=== PATIENT | male | born 1945 | race Caucasian/White ===

== ENCOUNTER → 2018-11-14 09:08 | Outpatient (CLI) | payer MEDICARE, SELFPAY ==
[2018-11-14 09:44] LABS: PSA,Total- Diagnostic 0.02 ng/mL (0.0-4.0)
== END ==
DX: C61 Malignant neoplasm of prostate (principal)
CPT/HCPCS: 84153

== ENCOUNTER 2020-11-05 14:07 | Outpatient (RCR) | payer MEDICARE, SELFPAY ==
[2020-11-05] MEDS: COVID-19 VACC, MRNA(PFIZER)/PF 30 MCG/0.3 ML SYRINGE IM (16:52)
[2020-11-26] MEDS: COVID-19 VACC, MRNA(PFIZER)/PF 30 MCG/0.3 ML SYRINGE IM (16:36)
== END 2021-02-02 23:59 ==
LOC: IMMUN 14:07
PROVIDERS: PCP Family Medicine; Referring Provider Family Medicine; Visit Provider Family Medicine
DX: Z23 Encounter for immunization (principal)
CPT/HCPCS: 0001A; 0002A; 91300

== ENCOUNTER 2022-08-25 09:19 | Inpatient (IN) | payer MEDICARE, SELFPAY ==
[2022-08-25] VITALS (14 sets, daily range): BP systolic 94–162; BP diastolic 50–129; PULSE 77–118; RESP 14–24; TEMP 21–37.7; O2SAT 87–98; BMI 19.7; BMI 18.6
--- NOTE | 2022-08-25 09:27 | EKG12_ITS ---
Test Reason : sob Blood Pressure : / mmHG Vent. Rate : 092 BPM Atrial Rate : 092 BPM P-R Int : 152 ms QRS Dur : 080 ms QT Int : 352 ms P-R-T Axes : 074 079 071 degrees QTc Int : 435 ms Normal sinus rhythm Normal ECG Confirmed by RISHI NAQVI, DULCE MARIA ([id number]), metropolitan editor LENY SIMS ([id number]) on 08/30/2022 12:29:26 PM Referred By: Luz Confirmed By:DULCE MARIA BLACKWELL MD
--- NOTE | 2022-08-25 09:29 | EDS_ITS ---
HPI History of Present Illness Chief Complaint: Shortness of Breath Informant: patient and EMS Narrative Narrative: Patient is a 77-year-old male with history of hyperlipidemia and long-term tobacco use (quit a couple days ago) presenting with worsening shortness of breath. Patient states he has had worsening shortness of breath for the past week or so. He states is got to the point that he can even move his arm without getting short of breath now. He has had a cough that is productive of white and yellow sputum. Denies any chest discomfort or pain. Denies any fever. Denies any swelling of his legs. Denies a history of DVT or PE. Does take a daily 81 mg aspirin. States he is never felt like this before. Does not wear any home oxygen. Apparently his is at home with pneumonia currently and had a negative COVID test. While patient denies any history of any underlying lung disease including COPD chart view shows he does have a history of COPD. Per EMS report patient was 82% on room air upon arrival. He did improve after receiving a DuoNeb. [facility] Medical History (Updated 08/25/22 @ 17:[address] Anjali Escobar, ) COPD (chronic obstructive pulmonary disease) Glaucoma High cholesterol Prostate CA Home Medications artificial tears(hypromellose) 0.3 % eye drops 1 drp EACH EYE BID DRY EYE 08/25/22 [History Last Taken 08/23/22] aspirin 81 mg tablet,delayed release 81 mg PO DAILY HEART HEALTH 08/25/22 [History Last Taken 08/23/22] lovastatin 40 mg tablet 40 mg PO DAILY CHOLESTEROL 08/25/22 [History Last Taken 08/23/22] timolol maleate 0.5 % eye drops 1 drp EACH EYE BID GLUCOMA 08/25/22 [History Last Taken 08/23/22] vit C 250 mg-vit E 90 mg-zinc 40 mg-copper 1 [id number] capsule (PreserVision AREDS-2) 1 tab PO BID SUPPLEMENT 08/25/22 [History Last Taken 08/23/22] Allergy/AdvReac Type Severity Reaction Status Date / Time No Known Allergies Allergy Verified 08/25/22 09:27 Family History (Updated 08/25/22 @ 13:[address] Alex Boles MD) Other COPD (chronic obstructive pulmonary disease) Heart disease Hypertension Surgical History (Updated 08/25/22 @ 13:51 by Adriane Smith) H/O radical prostatectomy Social History Smoking Status: Current some day smoker tobacco type: cigarettes ROS ROS ED Constitutional Constitutional ED: Denies chills or fever(s) Eyes Eyes: Denies change in vision ENT ENT ED: Denies rhinorrhea or sore throat Cardiovascular Cardiovascular: Denies chest pain or palpitations Respiratory/Chest Respiratory/Chest: Reports cough, dyspnea and dyspnea on exertion Gastrointestinal Gastrointestinal: Denies abdominal pain, nausea or vomiting Genitourinary Genitourinary ED: Denies dysuria Musculoskeletal Musculoskeletal: Denies arthralgias or myalgias Integumentary Denies rash Neurologic Neurologic: Reports weakness; Denies headache(s) Hematologic/Lymphatic Hematologic/Lymphatic: Denies easy bleeding or easy bruising EXAM Physical Exam Const Vital Signs: 08/25/22 09:20 08/25/22 09:27 08/25/22 09:27 Temperature 98 F Temperature Source Temporal Pulse Rate 117 H Pulse Rate [1 (Initial Baseline)] Pulse Rate [2] Pulse Rate [3] Pulse Rate [4] Pulse Rate [5] Pulse Rate [6] Pulse Rate [7] Pulse Rate [8] Pulse Rate [9] Respiratory Rate 22 H Respiratory Rate [1 (Initial Baseline)] Respiratory Rate [2] Respiratory Rate [3] Respiratory Rate [4] Respiratory Rate [5] Respiratory Rate [6] Respiratory Rate [7] Respiratory Rate [8] Respiratory Rate [9] Respiratory Effort Short of Breath Respiratory Pattern Tachypnea Blood Pressure 147/129 H Blood Pressure [1 (Initial Baseline)] Blood Pressure [2] Blood Pressure [3] Blood Pressure [4] Blood Pressure [5] Blood Pressure [6] Blood Pressure [7] Blood Pressure [8] Blood Pressure [9] Blood Pressure Mean 135 Pulse Ox 87 94 Oxygen Delivery Method Room Air Nasal Cannula Oxygen Delivery Method [1 (Initial Baseline)] Oxygen Delivery Method [3] Oxygen Delivery Method [4] Oxygen Delivery Method [5] Oxygen Delivery Method [6] Oxygen Delivery Method [7] Oxygen Delivery Method [9] Oxygen Flow Rate (L/min) 44 Oxygen Flow Rate (L/min) [1 (Initial Baseline)] Oxygen Flow Rate (L/min) [2] Oxygen Flow Rate (L/min) [3] Oxygen Flow Rate (L/min) [4] Oxygen Flow Rate (L/min) [5] Oxygen Flow Rate (L/min) [6] Oxygen Flow Rate (L/min) [7] Oxygen Flow Rate (L/min) [8] Oxygen Flow Rate (L/min) [9] 08/25/22 09:27 08/25/22 09:55 08/25/22 10:27 Temperature 97.9 F 97.6 F L Temperature Source Temporal Temporal Pulse Rate 103 H 102 H 88 Pulse Rate [1 (Initial Baseline)] Pulse Rate [2] Pulse Rate [3] Pulse Rate [4] Pulse Rate [5] Pulse Rate [6] Pulse Rate [7] Pulse Rate [8] Pulse Rate [9] Respiratory Rate 24 H 22 H 20 H Respiratory Rate [1 (Initial Baseline)] Respiratory Rate [2] Respiratory Rate [3] Respiratory Rate [4] Respiratory Rate [5] Respiratory Rate [6] Respiratory Rate [7] Respiratory Rate [8] Respiratory Rate [9] Respiratory Effort Respiratory Pattern Blood Pressure 141/111 H 149/104 H Blood Pressure [1 (Initial Baseline)] Blood Pressure [2] Blood Pressure [3] Blood Pressure [4] Blood Pressure [5] Blood Pressure [6] Blood Pressure [7] Blood Pressure [8] Blood Pressure [9] Blood Pressure Mean 121 119 Pulse Ox 97 98 Oxygen Delivery Method Nasal Cannula Nasal Cannula Oxygen Delivery Method [1 (Initial Baseline)] Oxygen Delivery Method [3] Oxygen Delivery Method [4] Oxygen Delivery Method [5] Oxygen Delivery Method [6] Oxygen Delivery Method [7] Oxygen Delivery Method [9] Oxygen Flow Rate (L/min) 4 4 Oxygen Flow Rate (L/min) [1 (Initial Baseline)] Oxygen Flow Rate (L/min) [2] Oxygen Flow Rate (L/min) [3] Oxygen Flow Rate (L/min) [4] Oxygen Flow Rate (L/min) [5] Oxygen Flow Rate (L/min) [6] Oxygen Flow Rate (L/min) [7] Oxygen Flow Rate (L/min) [8] Oxygen Flow Rate (L/min) [9] 08/25/22 10:27 08/25/22 11:18 08/25/22 11:50 Temperature Temperature Source Pulse Rate 88 93 Pulse Rate [1 (Initial Baseline)] 100 Pulse Rate [2] 102 H Pulse Rate [3] 83 Pulse Rate [4] 87 Pulse Rate [5] 99 Pulse Rate [6] 94 Pulse Rate [7] 99 Pulse Rate [8] 95 Pulse Rate [9] 87 Respiratory Rate 20 H 18 Respiratory Rate [1 (Initial Baseline)] 22 H Respiratory Rate [2] 20 H Respiratory Rate [3] 16 Respiratory Rate [4] 16 Respiratory Rate [5] 14 Respiratory Rate [6] 18 Respiratory Rate [7] 18 Respiratory Rate [8] 16 Respiratory Rate [9] 16 Respiratory Effort Respiratory Pattern Blood Pressure 140/104 H 113/59 L Blood Pressure [1 (Initial Baseline)] 153/104 H Blood Pressure [2] 153/104 H Blood Pressure [3] 162/99 H Blood Pressure [4] 162/99 H Blood Pressure [5] 137/98 H Blood Pressure [6] 141/98 H Blood Pressure [7] 130/88 H Blood Pressure [8] 116/87 H Blood Pressure [9] 117/85 H Blood Pressure Mean 116 77 Pulse Ox 98 95 Oxygen Delivery Method Nasal Cannula Nasal Cannula Oxygen Delivery Method [1 (Initial Baseline)] Nasal Cannula Oxygen Delivery Method [3] Nasal Cannula Oxygen Delivery Method [4] Nasal Cannula Oxygen Delivery Method [5] Non-Rebreather Oxygen Delivery Method [6] Non-Rebreather Oxygen Delivery Method [7] Nasal Cannula Oxygen Delivery Method [9] Nasal Cannula Oxygen Flow Rate (L/min) 4 2 Oxygen Flow Rate (L/min) [1 (Initial Baseline)] 4 Oxygen Flow Rate (L/min) [2] 4 Oxygen Flow Rate (L/min) [3] 4 Oxygen Flow Rate (L/min) [4] 4 Oxygen Flow Rate (L/min) [5] 15 Oxygen Flow Rate (L/min) [6] 15 Oxygen Flow Rate (L/min) [7] 2 Oxygen Flow Rate (L/min) [8] 2 Oxygen Flow Rate (L/min) [9] 2 08/25/22 12:07 Temperature Temperature Source Pulse Rate 85 Pulse Rate [1 (Initial Baseline)] Pulse Rate [2] Pulse Rate [3] Pulse Rate [4] Pulse Rate [5] Pulse Rate [6] Pulse Rate [7] Pulse Rate [8] Pulse Rate [9] Respiratory Rate 18 Respiratory Rate [1 (Initial Baseline)] Respiratory Rate [2] Respiratory Rate [3] Respiratory Rate [4] Respiratory Rate [5] Respiratory Rate [6] Respiratory Rate [7] Respiratory Rate [8] Respiratory Rate [9] Respiratory Effort Respiratory Pattern Blood Pressure 113/79 Blood Pressure [1 (Initial Baseline)] Blood Pressure [2] Blood Pressure [3] Blood Pressure [4] Blood Pressure [5] Blood Pressure [6] Blood Pressure [7] Blood Pressure [8] Blood Pressure [9] Blood Pressure Mean 90 Pulse Ox 95 Oxygen Delivery Method Nasal Cannula Oxygen Delivery Method [1 (Initial Baseline)] Oxygen Delivery Method [3] Oxygen Delivery Method [4] Oxygen Delivery Method [5] Oxygen Delivery Method [6] Oxygen Delivery Method [7] Oxygen Delivery Method [9] Oxygen Flow Rate (L/min) 2 Oxygen Flow Rate (L/min) [1 (Initial Baseline)] Oxygen Flow Rate (L/min) [2] Oxygen Flow Rate (L/min) [3] Oxygen Flow Rate (L/min) [4] Oxygen Flow Rate (L/min) [5] Oxygen Flow Rate (L/min) [6] Oxygen Flow Rate (L/min) [7] Oxygen Flow Rate (L/min) [8] Oxygen Flow Rate (L/min) [9] Positive well developed and cachectic General Appearance ED: well developed, cachectic and NAD Nutritional Appearance: cachectic HEENT Reports moist mucous membranes atraumatic Eyes PERRL and EOMs intact bilaterally Neck supple Neck Narrative: Positive JVD Resp Resp Narrative: Tachypneic, diffuse inspiratory and x-ray wheezing. Diminished breath sounds on the left. No accessory muscle use Cardio regular rhythm and no murmurs Rate: tachycardic GI non-tender and non-distended Back/Spine no CVA tenderness Neuro oriented x3 Neuro Narrative: No focal deficits appreciated Motor Exam: general weakness Psych mental status grossly normal Skin no wounds Rashes: no rashes MDM MDM MDM Narrative Medical decision making narrative: Patient is evaluated for worsening shortness of breath. On arrival patient is tachypneic, tachycardic and hypoxic. He was given a DuoNeb in route. He is given a 500 cc bolus and addition albuterol treatment. Differential includes infection, pleural effusion, cardiogenic causes, pulmonary emboli as well as COPD exacerbation. Patient is wheezing. He is given albuterol as he previously improvement with DuoNeb. He has diminished breath sounds on the left. Chest x-ray does show 40% pneumothorax. Chest x-ray is interpreted by myself as well as radiology. Chest tube is placed. Patient has had decrease in his O2 demands but still requires submental oxygen. After additional chest tube is CTA of the chest is ordered to further evaluate the lungs. Patient has significant chronic changes, persistent pneumothorax but no signs of a secondary pneumonia or an acute infection. Case is discussed with Dr. Mcmahon, surgery on-call. Chest tube will be switched out per his recommendation after reviewing the CAT scan. He will see the patient in consult on the floor. Patient is admitted to the medicine service. Patient be treated as a pneumothorax as well as a COPD exacerbation. He is given Solu-Medrol in the ER. Work-up is otherwise largely normal. Lab Data Labs: Laboratory Results - last 24 hr 08/25/22 08/25/22 08/25/22 09:25 09:25 09:25 WBC 8.4 RBC 4.95 Hgb 16.6 H Hct 50.5 MCV 102.0 H MCH 33.5 H MCHC 32.9 RDW Std Deviation 51.3 H RDW Coeff of Samira 13.5 Plt Count 131 L MPV 9.5 Immature Gran % (Auto) 0.400 Neut % (Auto) 81.9 H Lymph % (Auto) 8.7 L [place] % (Auto) 7.0 Eos % (Auto) 1.6 Baso % (Auto) 0.4 Absolute Neuts (auto) 6.9 Absolute Lymphs (auto) 0.73 L Nucleated RBC % 0 D-Dimer Quant (PE/DVT) 0.99 H* Sodium Potassium Chloride Carbon Dioxide Anion Gap BUN Creatinine Estim Creat Clear Calc Est GFR (MDRD) Af Amer Est GFR (MDRD) Non-Af BUN/Creatinine Ratio Glucose Lactic Acid Calcium Troponin I High Sens 11 B-Natriuretic Peptide 08/25/22 08/25/22 08/25/22 09:25 09:25 09:25 WBC RBC Hgb Hct MCV MCH MCHC RDW Std Deviation RDW Coeff of Samira Plt Count MPV Immature Gran % (Auto) Neut % (Auto) Lymph % (Auto) [place] % (Auto) Eos % (Auto) Baso % (Auto) Absolute Neuts (auto) Absolute Lymphs (auto) Nucleated RBC % D-Dimer Quant (PE/DVT) Sodium 137 Potassium 4.0 Chloride 98 Carbon Dioxide 32.0 Anion Gap 7 BUN 11 Creatinine 0.71 Estim Creat Clear Calc 50.63 Est GFR (MDRD) Af Amer 139 Est GFR (MDRD) Non-Af 115 BUN/Creatinine Ratio 15.6 Glucose 119 H Lactic Acid 1.9 Calcium 9.3 Troponin I High Sens B-Natriuretic Peptide 45.3 Radiography Diagnostic Testing: Clinical Impression(s) from Imaging Studies Chest X-Ray 08/25/22 10:19 IMPRESSION: Approximately 40% left pneumothorax without mediastinal shift. N.B. : The above Results were Read Back by Jan Christina MD to Anjali Escobar MD, and understanding confirmed on 08/25/2022 10:31:40 (ET). Electronically Signed: Jan Christina MD at 10:34 EST , ADDENDUM: 08/25/22 1041 IMPRESSION: Approximately 40% left pneumothorax without mediastinal shift. N.B. : The above Results were Read Back by Jan Christina MD to Anjali Escobar MD, and understanding confirmed on 08/25/2022 10:31:40 (ET). Electronically Signed: Jan Christina MD at 10:34 EST , Chest CTA 08/25/22 11:46 IMPRESSION: Underlying emphysema with left-sided pneumothorax and a left lateral bladder. No mediastinal shift Chronic interstitial changes in both lung reaves with compressive atelectasis in the left midlung field from the bladder. Dependent atelectasis in the left lung base Degenerative bony changes Calcified coronary vessels Electronically Signed: Jan Christina MD at 13:14 EST , Chest X-Ray 08/25/22 11:50 IMPRESSION: After placement of a small caliber left-sided chest tube, the previously noted left pneumothorax has increased in size since the previous study.. There remains no mediastinal shift. Right lung is clear Electronically Signed: Jan Christina MD at 12:07 EST , Rhythm Strip Rhythm Strip: Sinus Rhythm Rate: 92 Ectopy: None EKG Initial EKG: Attestation: I personally reviewed and interpreted this EKG as follows: Interpretation: Sinus Rhythm Comments: Normal sinus rhythm at a rate of 92 bpm Normal axis Normal intervals Normal ST segments Procedures Procedural Sedation 1 (Initial Baseline): Consent Signed: Yes Any Problems With Anesthesia: No You/Your family experience fever (hyperthermia) w/anesthesia: Unknown Sedation medication: Versed Dose: 2 Route: IV Mallampati Score: Class II ASA Classification: III Comment:: Transient episode of shallow respirations and desaturation improved with tactile stimuli and submental oxygen 2: Consent Signed: Yes Any Problems With Anesthesia: No You/Your family experience fever (hyperthermia) w/anesthesia: Unknown Sedation medication: Versed Dose: 1 Route: IV Mallampati Score: Class II ASA Classification: III Other Procedures Procedure(s): Chest tube 8 Malagasy pigtail catheter Patient placed on end-tidal CO2, continuous pulse oximetry and telemetry monitoring. Is premedicated with 50 mcg of IV fentanyl and then 2 mg IV Versed. Patient does have a transient episode of apnea but this does resolve with physical stimulation. Area anesthetized with 1% lidocaine with out epinephrine. Using sterile technique 8 Malagasy pigtail catheter placed at the third intercostal space midclavicular line on the left. Bubbles are aspirated. Pigtail is secured and hooked up to low intermittent suction. Patient has improvement of his hypoxia and tolerated procedure well. No blood loss. On chest x-ray postprocedure there is worsening of the pneumothorax however patient has decrease of his oxygen demands and clinically appears better. CT of the chest to evaluate for further evaluation of this. This is reviewed with surgery who is concerned that the catheter is kinked and it is going into his lungs. This will be replaced. See procedure note below. Chest to Patient given 1 mg IV Versed. Initial chest tube is removed and area reanesthetized and sterilized. Sterile technique is used. The same track is used. An 8 Malagasy pigtail catheter is placed without difficulty. It is resecured to the chest wall. Patient tolerated procedure well. Chest x-ray shows no change in pneumothorax but appropriate position of the chest tube. No blood loss. Discharge Plan Dx/Rx/DC Orders Clinical Impression: Pneumothorax, Acute respiratory failure with hypoxia, Asthma exacerbation in COPD Disposition Disposition: Acute Care Hospital [facility] Discharge Date/Time: 08/25/22 15:30
--- NOTE | 2022-08-25 09:36 | NURSING ---
NO OLD EKGS
[2022-08-25 09:45] LABS: Absolute Lymphocyte Count 0.73 X10^3/uL (0.83-4.51); Absolute Neutrophil Count 6.9 X10^3/uL (2.0-7.7); Basophil# 0.03 X10^3/uL; Basophil% 0.4 % (0-1); Eosinophil# 0.13 X10^3/uL; Eosinophils% 1.6 % (0-5); Hematocrit 50.5 % (40-54); Hemoglobin 16.6 g/dL (13.0-16.5); Lymphocyte # 0.73 X10^3/ul (0.83-4.51); Lymphocyte % 8.7 % (19-41); Mean Corp Hgb Conc 32.9 g/dL (32-36); Mean Corpuscular Hgb 33.5 pg (27.0-32.0); Mean Platelet Vol. 9.5 fl (6.2-12.0); Monocyte# 0.59 X10^3/uL; NRBC Flagged by Analyzer 0 % (0-5); Neutrophil # 6.86 X10^3/uL (2.7-7.7); Neutrophil % 81.9 % (47-70); Platelet Count 131 K/mm3 (150-450); RBC Distribution Width CV 13.5 % (11.6-14.6); RBC Distribution Width SD 51.3 fl (35.1-43.9); Red Blood Count 4.95 M/mm3 (4.6-6.2); White Blood Count 8.4 K/mm3 (4.4-11.0)
[2022-08-25] MEDS: Albuterol 2.5 MG/3 ML VIAL.NEB. INHALATION (09:50)
[2022-08-25 09:56] LABS: Troponin-I HS 11 pg/mL (3.0-78.0)
[2022-08-25 09:59] LABS: D-Dimer Quantitative (DVT/PE) 0.99 FEU/ug/m (0.27-0.49)
[2022-08-25 10:02] LABS: BNP,B-Type NATRIURETIC PEPTIDE 45.3 pg/mL (0-100); Lactic Acid 1.9 mmol/L (0.4-1.9)
--- NOTE | 2022-08-25 10:19 | RAD_ITS ---
STUDY: X-RAY CHEST REASON FOR EXAM: Male, 77 years old. Worsening shortness of breath x2 weeks TECHNIQUE: 2 AP portable views COMPARISON: None. FINDINGS: EKG leads overlie the chest Lungs are hyperexpanded. There is a left pneumothorax effecting approximately 40% of the left hemithorax without mediastinal shift. Right lung is free of a superimposed process. Normal size heart. Normal mediastinum and daphne. Normal visualized pulmonary arteries. Normal visualized aortic arch and descending thoracic aorta. There are diffuse degenerative changes of the visualized thoracic spine. There is degenerative osteoarthritis of the bilateral shoulders. There is no demonstrated abnormality of the visualized soft tissue structures of the upper abdomen. RAD/Chest 1 View (Portable) IMPRESSION: Approximately 40% left pneumothorax without mediastinal shift. N.B. : The above Results were Read Back by Jan Christina MD to Anjali Escobar MD, and understanding confirmed on 08/25/2022 10:31:40 (ET). Electronically Signed: Jan Christina MD at 10:34 EST ,
[2022-08-25 10:35] LABS: Anion Gap 7 (5-15); BUN 11 mg/dL (7-18); BUN/Creat Ratio 15.6 RATIO (10-20); Calcium,Total 9.3 mg/dL (8.5-10.1); Chloride 98 mmol/L (98-107); Creatinine, Serum 0.71 mg/dL (0.70-1.30); EST Glomerular Filtration Rate 115 mL/min (>60); Est Glom Filt Rate - Afr Amer 139 mL/min (>60); Estimated Creatinine Clearance 50.63 ml/min; Glucose 119 mg/dL (74-106); Sodium Level 137 mmol/L (136-145)
[2022-08-25] MEDS: fentaNYL 100 MCG/2 ML Ampul 50 MCG IV (11:17)
[2022-08-25] MEDS: Lidocaine 1% (20 ml mdv) 20 ML Vial INFILT (11:17)
[2022-08-25] MEDS: Midazolam 2 MG/2 ML Syringe IV (11:17)
--- NOTE | 2022-08-25 11:46 | CT_ITS ---
STUDY: CTA CHEST REASON FOR EXAM: Male, 77 years old. elevated dimer, pneumothorax RADIATION DOSAGE (If Supplied By Facility): CTDIvol = ( 5.89 ) mGy, DLP = ( 153.16 ) mGycm TECHNIQUE: The examination was performed with the intravenous administration of IV 75mL Isovue-370. Post-processing of the angiographic images was performed, with multiplanar reformation and 3D reconstruction. Individualized dose optimization techniques were used for this CT. COMPARISON: None. FINDINGS: Normal enhancement of the main pulmonary artery and right and left pulmonary arteries. Normal enhancement of the bilateral peripheral pulmonary arteries. There is no demonstrated pulmonary embolism. Normal thoracic aorta and visualized great vessels. There is no demonstrated aortic dissection. Normal heart and pericardium. There are calcifications of the coronary arteries. Normal mediastinum. Normal hilar regions. There is peribronchial thickening. The lungs are hyper expanded, with flattening of the hemidiaphragms. There is underlying emphysema with a left-sided pneumothorax and a large lateral bleb. There is compressive atelectasis in the left midlung field. There is no mediastinal shift. No organizing infiltrate or suspicious noncalcified mass or nodule. Left basilar atelectasis. Normal chest wall structures. There are degenerative changes of thoracic spine. Limited cuts through the upper abdomen show a simple 3 cm cyst in the left lobe. CT/CTA Chest W/WO Contrast IMPRESSION: Underlying emphysema with left-sided pneumothorax and a left lateral bladder. No mediastinal shift Chronic interstitial changes in both lung reaves with compressive atelectasis in the left midlung field from the bladder. Dependent atelectasis in the left lung base Degenerative bony changes Calcified coronary vessels Electronically Signed: Jan Christina MD at 13:14 EST ,
--- NOTE | 2022-08-25 11:50 | RAD_ITS ---
STUDY: X-RAY CHEST REASON FOR EXAM: Male, 77 years old. Post chest tube placement TECHNIQUE: 2 AP portable views COMPARISON: Earlier today FINDINGS: Patient is status post small caliber chest tube placement to the left hemithorax. The previously noted left pneumothorax has increased in size since the previous study. There is now approximately 60% pneumothorax without mediastinal shift. Right lung remains clear. Normal size heart. Normal mediastinum and daphne. Normal visualized pulmonary arteries. Normal visualized aortic arch and descending thoracic aorta. There are diffuse degenerative changes of the visualized thoracic spine. Normal visualized ribs, clavicles, and shoulders. There is no demonstrated abnormality of the visualized soft tissue structures of the upper abdomen. RAD/CXR for Line Placement IMPRESSION: After placement of a small caliber left-sided chest tube, the previously noted left pneumothorax has increased in size since the previous study.. There remains no mediastinal shift. Right lung is clear Electronically Signed: Jan Christina MD at 12:07 EST ,
--- NOTE | 2022-08-25 13:37 | NURSING ---
MED SURG KOTSONIS HYPOXIA, COPD EXAC, PNEUMOTHORAX
--- NOTE | 2022-08-25 13:39 | HP.PCM.HOS_ITS ---
HPI - General General Date of Admission: 08/25/22 HPI Narrative JUSTIN HULL, is a 77 M who presents to the hospital with progressive shortness of breath secondary to a pneumothorax on the left. Apparently he has been short of breath for about a week, he does have significant emphysematous changes on CT scan though it does not sound that he has been seeing a business continuity planning director regularly. He has not on any inhalers. He does have a chest tube placed into the left chest and general surgery was consulted. He is on 2 L of oxygen and this could also be a superimposed COPD exacerbation, he has been having a cough with sputum production. [facility] Medical History (Updated 08/25/22 @ 13:52 by Adriane Smith) COPD (chronic obstructive pulmonary disease) Glaucoma High cholesterol Prostate CA Home Medications artificial tears(hypromellose) 0.3 % eye drops 1 drp EACH EYE BID DRY EYE [History Last Taken 08/23/22] aspirin 81 mg tablet,delayed release 81 mg PO DAILY HEART HEALTH 08/25/22 [History Last Taken 08/23/22] lovastatin 40 mg tablet 40 mg PO DAILY CHOLESTEROL 08/25/22 [History Last Taken 08/23/22] timolol maleate 0.5 % eye drops 1 drp EACH EYE BID GLUCOMA 08/25/22 [History Last Taken 08/23/22] vit C 250 mg-vit E 90 mg-zinc 40 mg-copper 1 [id number] capsule (Pres erVision AREDS-2) 1 tab PO BID SUPPLEMENT 08/25/22 [History Last Taken 08/23/22] Allergy/AdvReac Type Severity Reaction Status Date / Time No Known Allergies Allergy Verified 08/25/22 09:27 Family History (Updated 08/25/22 @ 13:[address] Alex Boles MD) Other COPD (chronic obstructive pulmonary disease) Heart disease Hypertension Surgical History (Updated 08/25/22 @ 13:51 by Adriane Smith) H/O radical prostatectomy Social History Smoking Status: Current some day smoker tobacco type: cigarettes ROS Constitutional Constitutional: Denies chills, fatigue, fever(s) or malaise Eyes Eyes: Denies blurry vision ENT HEENT: Denies headache(s) or nasal discharge Cardiovascular Cardiovascular: Denies chest pain, dyspnea on exertion or syncope Respiratory/Chest Respiratory/Chest: Reports cough and shortness of breath at rest; Denies shortness of breath with exertion Gastrointestinal Gastrointestinal: Denies constipation, diarrhea, nausea or vomiting Genitourinary Genitourinary: Denies dysuria Neurologic Neurologic: Denies focal weakness, numbness or tremor(s) Psychiatric Psychiatric: Denies anxiety or depression Vital Signs Vital Signs Vital Signs: 08/25/22 09:20 08/25/22 09:27 08/25/22 09:27 Temperature 98 F Temperature Source Temporal Pulse Rate 117 H Pulse Rate [1 (Initial Baseline)] Pulse Rate [2] Pulse Rate [3] Pulse Rate [4] Pulse Rate [5] Pulse Rate [6] Pulse Rate [7] Pulse Rate [8] Pulse Rate [9] Respiratory Rate 22 H Respiratory Rate [1 (Initial Baseline)] Respiratory Rate [2] Respiratory Rate [3] Respiratory Rate [4] Respiratory Rate [5] Respiratory Rate [6] Respiratory Rate [7] Respiratory Rate [8] Respiratory Rate [9] Respiratory Effort Short of Breath Respiratory Pattern Tachypnea Blood Pressure 147/129 H Blood Pressure [1 (Initial Baseline)] Blood Pressure [2] Blood Pressure [3] Blood Pressure [4] Blood Pressure [5] Blood Pressure [6] Blood Pressure [7] Blood Pressure [8] Blood Pressure [9] Blood Pressure Mean 135 Pulse Ox 87 94 Oxygen Delivery Method Room Air Nasal Cannula Oxygen Delivery Method [1 (Initial Baseline)] Oxygen Delivery Method [3] Oxygen Delivery Method [4] Oxygen Delivery Method [5] Oxygen Delivery Method [6] Oxygen Delivery Method [7] Oxygen Delivery Method [9] Oxygen Flow Rate (L/min) 44 Oxygen Flow Rate (L/min) [1 (Initial Baseline)] Oxygen Flow Rate (L/min) [2] Oxygen Flow Rate (L/min) [3] Oxygen Flow Rate (L/min) [4] Oxygen Flow Rate (L/min) [5] Oxygen Flow Rate (L/min) [6] Oxygen Flow Rate (L/min) [7] Oxygen Flow Rate (L/min) [8] Oxygen Flow Rate (L/min) [9] 08/25/22 09:27 08/25/22 09:55 12/29/22 10:27 Temperature 97.9 F 97.6 F L Temperature Source Temporal Temporal Pulse Rate 103 H 102 H 88 Pulse Rate [1 (Initial Baseline)] Pulse Rate [2] Pulse Rate [3] Pulse Rate [4] Pulse Rate [5] Pulse Rate [6] Pulse Rate [7] Pulse Rate [8] Pulse Rate [9] Respiratory Rate 24 H 22 H 20 H Respiratory Rate [1 (Initial Baseline)] Respiratory Rate [2] Respiratory Rate [3] Respiratory Rate [4] Respiratory Rate [5] Respiratory Rate [6] Respiratory Rate [7] Respiratory Rate [8] Respiratory Rate [9] Respiratory Effort Respiratory Pattern Blood Pressure 141/111 H 149/104 H Blood Pressure [1 (Initial Baseline)] Blood Pressure [2] Blood Pressure [3] Blood Pressure [4] Blood Pressure [5] Blood Pressure [6] Blood Pressure [7] Blood Pressure [8] Blood Pressure [9] Blood Pressure Mean 121 119 Pulse Ox 97 98 Oxygen Delivery Method Nasal Cannula Nasal Cannula Oxygen Delivery Method [1 (Initial Baseline)] Oxygen Delivery Method [3] Oxygen Delivery Method [4] Oxygen Delivery Method [5] Oxygen Delivery Method [6] Oxygen Delivery Method [7] Oxygen Delivery Method [9] Oxygen Flow Rate (L/min) 4 4 Oxygen Flow Rate (L/min) [1 (Initial Baseline)] Oxygen Flow Rate (L/min) [2] Oxygen Flow Rate (L/min) [3] Oxygen Flow Rate (L/min) [4] Oxygen Flow Rate (L/min) [5] Oxygen Flow Rate (L/min) [6] Oxygen Flow Rate (L/min) [7] Oxygen Flow Rate (L/min) [8] Oxygen Flow Rate (L/min) [9] 08/25/22 10:27 08/25/22 11:18 08/25/22 11:50 Temperature Temperature Source Pulse Rate 88 93 Pulse Rate [1 (Initial Baseline)] 100 Pulse Rate [2] 102 H Pulse Rate [3] 83 Pulse Rate [4] 87 Pulse Rate [5] 99 Pulse Rate [6] 94 Pulse Rate [7] 99 Pulse Rate [8] 95 Pulse Rate [9] 87 Respiratory Rate 20 H 18 Respiratory Rate [1 (Initial Baseline)] 22 H Respiratory Rate [2] 20 H Respiratory Rate [3] 16 Respiratory Rate [4] 16 Respiratory Rate [5] 14 Respiratory Rate [6] 18 Respiratory Rate [7] 18 Respiratory Rate [8] 16 Respiratory Rate [9] 16 Respiratory Effort Respiratory Pattern Blood Pressure 140/104 H 113/59 L Blood Pressure [1 (Initial Baseline)] 153/104 H Blood Pressure [2] 153/104 H Blood Pressure [3] 162/99 H Blood Pressure [4] 162/99 H Blood Pressure [5] 137/98 H Blood Pressure [6] 141/98 H Blood Pressure [7] 130/88 H Blood Pressure [8] 116/87 H Blood Pressure [9] 117/85 H Blood Pressure Mean 116 77 Pulse Ox 98 95 Oxygen Delivery Method Nasal Cannula Nasal Cannula Oxygen Delivery Method [1 (Initial Baseline)] Nasal Cannula Oxygen Delivery Method [3] Nasal Cannula Oxygen Delivery Method [4] Nasal Cannula Oxygen Delivery Method [5] Non-Rebreather Oxygen Delivery Method [6] Non-Rebreather Oxygen Delivery Method [7] Nasal Cannula Oxygen Delivery Method [9] Nasal Cannula Oxygen Flow Rate (L/min) 4 2 Oxygen Flow Rate (L/min) [1 (Initial Baseline)] 4 Oxygen Flow Rate (L/min) [2] 4 Oxygen Flow Rate (L/min) [3] 4 Oxygen Flow Rate (L/min) [4] 4 Oxygen Flow Rate (L/min) [5] 15 Oxygen Flow Rate (L/min) [6] 15 Oxygen Flow Rate (L/min) [7] 2 Oxygen Flow Rate (L/min) [8] 2 Oxygen Flow Rate (L/min) [9] 2 08/25/22 12:07 Temperature Temperature Source Pulse Rate 85 Pulse Rate [1 (Initial Baseline)] Pulse Rate [2] Pulse Rate [3] Pulse Rate [4] Pulse Rate [5] Pulse Rate [6] Pulse Rate [7] Pulse Rate [8] Pulse Rate [9] Respiratory Rate 18 Respiratory Rate [1 (Initial Baseline)] Respiratory Rate [2] Respiratory Rate [3] Respiratory Rate [4] Respiratory Rate [5] Respiratory Rate [6] Respiratory Rate [7] Respiratory Rate [8] Respiratory Rate [9] Respiratory Effort Respiratory Pattern Blood Pressure 113/79 Blood Pressure [1 (Initial Baseline)] Blood Pressure [2] Blood Pressure [3] Blood Pressure [4] Blood Pressure [5] Blood Pressure [6] Blood Pressure [7] Blood Pressure [8] Blood Pressure [9] Blood Pressure Mean 90 Pulse Ox 95 Oxygen Delivery Method Nasal Cannula Oxygen Delivery Method [1 (Initial Baseline)] Oxygen Delivery Method [3] Oxygen Delivery Method [4] Oxygen Delivery Method [5] Oxygen Delivery Method [6] Oxygen Delivery Method [7] Oxygen Delivery Method [9] Oxygen Flow Rate (L/min) 2 Oxygen Flow Rate (L/min) [1 (Initial Baseline)] Oxygen Flow Rate (L/min) [2] Oxygen Flow Rate (L/min) [3] Oxygen Flow Rate (L/min) [4] Oxygen Flow Rate (L/min) [5] Oxygen Flow Rate (L/min) [6] Oxygen Flow Rate (L/min) [7] Oxygen Flow Rate (L/min) [8] Oxygen Flow Rate (L/min) [9] Weight Weight: 129 lb 10.109 oz Body Mass Index (BMI) 19.7 Physical Exam Narrative General: Alert, Oriented x3, Cooperative, No apparent distress, pulmonary cachexia HEENT: Atraumatic, PERRLA, EOMI, Normocephalic Oral: Moist Mucosa Neck: Supple, No JVD Lungs: Diminished, poor air movement, No rhonchi, wheeze, No rales Cardiovascular: Regular rate, Regular Rhythm, Normal S1, Normal S2, No murmurs Abdomen: Soft, Non Tender, Non-Distended, No Hepato-splenomegaly Extremities: No edema, Capillary Refill Less than 3 Seconds Skin: No rashes, No breakdown Musculoskeletal: No Tenderness to Palpation of Joints or Extremities Neurological: Cranial nerves II-XII grossly intact, Motor Exam 5/5 strength throughout, Sensory exam intact to light touch and pain Psych/Mental Status: Normal Affect, Appropriate Results Lab / Micro Data Result Diagrams: 08/25/22 09:25 08/25/22 09:25 Labs: Laboratory Results - last 24 hr 08/25/22 09:25: WBC 8.4, RBC 4.95, Hgb 16.6 H, Hct 50.5, MCV 102.0 H, MCH 33.5 H , MCHC 32.9, RDW Std Deviation 51.3 H, RDW Coeff of Samira 13.5, Plt Count 131 L, MPV 9.5, Immature Gran % (Auto) 0.400, Neut % (Auto) 81.9 H, Lymph % (Auto) 8.7 L, [place] % (Auto) 7.0, Eos % (Auto) 1.6, Baso % (Auto) 0.4, Absolute Neuts (auto) 6.9, Absolute Lymphs (auto) 0.73 L, Nucleated RBC % 0 08/25/22 09:25: D-Dimer Quant (PE/DVT) 0.99 H* 08/25/22 09:25: Troponin I High Sens 11 08/25/22 09:25: Lactic Acid 1.9 08/25/22 09:25: B-Natriuretic Peptide 45.3 08/25/22 09:25: Sodium 137, Potassium 4.0, Chloride 98, Carbon Dioxide 32.0, Anion Gap 7, BUN 11, Creatinine 0.71, Estim Creat Clear Calc 50.63, Est GFR (MDRD) Af Amer 139, Est GFR (MDRD) Non-Af 115, BUN/Creatinine Ratio 15.6, Glucose 119 H, Calcium 9.3 Micro: Microbiology 08/25/22 09:34 Nasal Secretion SARS-CoV-2 & FLU Antigen (Rapid) - Final Rhythm Strip Rhythm Strip: Sinus Rhythm Rate: 92 Ectopy: None Radiology Impression Chest X-Ray 08/25/22 10:19 IMPRESSION: Approximately 40% left pneumothorax without mediastinal shift. N.B. : The above Results were Read Back by Jan Christina MD to Anjali Escobar MD, and understanding confirmed on 08/25/2022 10:31:40 (ET). Electronically Signed: Jan Christina MD at 10:34 EST , ADDENDUM: 08/25/22 1041 IMPRESSION: Approximately 40% left pneumothorax without mediastinal shift. N.B. : The above Results were Read Back by Jan Christina MD to Anjali Escobar MD, and understanding confirmed on 08/25/2022 10:31:40 (ET). Electronically Signed: Jan Christina MD at 10:34 EST , Chest CTA 08/25/22 11:46 IMPRESSION: Underlying emphysema with left-sided pneumothorax and a left lateral bladder. No mediastinal shift Chronic interstitial changes in both lung reaves with compressive atelectasis in the left midlung field from the bladder. Dependent atelectasis in the left lung base Degenerative bony changes Calcified coronary vessels Electronically Signed: Jan Christina MD at 13:14 EST , Chest X-Ray 08/25/22 11:50 IMPRESSION: After placement of a small caliber left-sided chest tube, the previously noted left pneumothorax has increased in size since the previous study.. There remains no mediastinal shift. Right lung is clear Electronically Signed: Jan Christina MD at 12:07 EST , Assessment & Plan Assessment/Plan (1) Pneumothorax: (2) Acute respiratory failure with hypoxia: PLAN: Plan 1. Acute hypoxic respiratory failure secondary to a left pneumothorax from bleb due to emphysema/COPD exacerbation/tobacco abuse ? We will continue with steroids as well as breathing treatments ? We will obtain a sputum culture ? He needs to follow-up with pulmonology as an outpatient to obtain PFTs ? Appreciate general surgery's assistance in managing his pneumothorax, chest tube was placed on the left ? We will repeat chest x-ray in the morning ? Discussed tobacco cessation 2. Hyperlipidemia ? Stable ? We will continue with his home lovastatin as well as his aspirin 3. Glaucoma ? Stable ? Continue with timolol DVT: Ambulation Charges/Coding Visit Charges Inpatient E&M: 80449 Init Hosp L2
[2022-08-25] MEDS: MethylPREDNISolone 125 MG/2 ML Vial IV (13:41)
[2022-08-25] MEDS: Midazolam 2 MG/2 ML Syringe 1 MG IV (14:20)
--- NOTE | 2022-08-25 14:35 | RAD_ITS ---
STUDY: X-RAY CHEST REASON FOR EXAM: Male, 77 years old. post chest tube TECHNIQUE: 2 AP portable view of the chest. COMPARISON: August 25, 2022 FINDINGS: 1. Stable left upper lobe chest tube. No change in 30-40% left pneumothorax 2. Redemonstration of diffuse cystic emphysematous changes of both lungs and hyperinflation 3. The right lung remains clear 4. Normal heart size 5. Stable mediastinal and osseous structures. There is no demonstrated abnormality of the visualized soft tissue structures of the upper abdomen. RAD/Chest 1 View (Portable) IMPRESSION: Stable left upper lobe chest tube. No change in 30-40% left pneumothorax Electronically Signed: Jagdish Cisneros MD at 15:52 EST ,
[2022-08-25] MEDS: Ensure Plus High Protein 120 ML LIQUID PO (17:42)
[2022-08-25] MEDS: Ipratropium/Albuterol Sulfate 3 ML AMPUL.NEB INHALATION (18:58)
[2022-08-25] MEDS: 0.9% Saline Lock 10 ML Syringe IV (21:11)
[2022-08-25] MEDS: Timolol 0.5% 5ML OPTH.BTL 1 DRP EACH EYE (21:11)
[2022-08-25] MEDS: Atorvastatin Calcium 10 MG Tablet PO (21:15)
--- NOTE | 2022-08-25 22:40 | NURSING ---
Under Emergency Charting
--- NOTE | 2022-08-25 23:29 | EX.PCM.CON.S ---
Assessment & Plan Assessment/Plan (1) Pneumothorax: PLAN: This is a 77-year-old male with a history of COPD and former smoker who presents with shortness of breath and left-sided pneumothorax. I was initially consulted to assist with management of patient's chest tube, but on my review of patient's radiographs and CT imaging, observed that patient's chest tube appeared inserted into the patient's left upper lobe and was also kinked at the chest wall. I therefore advised emergency medicine to replace this catheter. According to patient this was done while he was still in the emergency department. On my review of the repeat chest x-ray, patient had some subcutaneous emphysema in the chest wall and on my arrival to the patient's bedside I did find the chest tube to be kinking. Patient's dressing was taken down and I advised nursing of the situation so that it could be taped and secured in a position to avoid further poor ventilation of the tube. Given that the patient's chest x-ray also showed a persistent pneumothorax, it is difficult to confirm whether patient's current thoracostomy is adequate to remedy his problem. I have placed the chest tube to -30 cm of water and obtained a repeat chest x-ray at 2300. I am looking to see that the patient's subcutaneous emphysema has not further progressed and hopefully that the pneumothorax is reduced in size. If the pneumothorax is worsened or has failed to substantially decrease in size by tomorrow, I have notified the patient that I may need to place a larger tube. For the interim recommend: ? Continuous suction -30 cmH2O ? Follow-up chest x-ray at 2300 ? Demonstrated to patient splinting when coughing ? Incentive spirometry ? Protein supplementation HPI Consult Data Date of Consult: 08/25/22 HPI Narrative Reason for Consultation: Shortness of breath HPI Narrative: JUSTIN HULL, is a 77 M who presented to [facility] emergency room with complaints of shortness of breath for roughly the last 1 week. He states that he deals with some shortness of breath, congestion, and cough chronically, but decided to present after he could not get up without feeling winded. He admits to a off-and-on longstanding smoking habit for a total of 40 years at half pack per day. He reports that when he was first evaluated by emergency medicine he was quite short of breath, but after a few breathing treatments this improved rather dramatically. He denies any present shortness of breath, but states that it hurts inside when he coughs. He denies any prior experience with pneumothorax and states that he is not completely clear as to what a pneumothorax represents. [facility] Medical History (Updated 08/25/22 @ 17:[address] Anjali Escobar DO) COPD (chronic obstructive pulmonary disease) Glaucoma High cholesterol Prostate CA Home Medications artificial tears(hypromellose) 0.3 % eye drops 1 drp EACH EYE BID DRY EYE 08/25/22 [History Last Taken 08/23/22] aspirin 81 mg tablet,delayed release 81 mg PO DAILY HEART HEALTH 08/25/22 [History Last Taken 08/23/22] lovastatin 40 mg tablet 40 mg PO DAILY CHOLESTEROL 08/25/22 [History Last Taken 08/23/22] timolol maleate 0.5 % eye drops 1 drp EACH EYE BID GLUCOMA 08/25/22 [History Last Taken 08/23/22] vit C 250 mg-vit E 90 mg-zinc 40 mg-copper 1 [id number] capsule (PreserVision AREDS-2) 1 tab PO BID SUPPLEMENT 08/25/22 [History Last Taken 08/23/22] Allergy/AdvReac Type Severity Reaction Status Date / Time No Known Allergies Allergy Verified 08/25/22 09:27 Family History (Updated 08/25/22 @ 13:[address] Alex Boles MD) Other COPD (chronic obstructive pulmonary disease) Heart disease Hypertension Surgical History (Updated 08/25/22 @ 13:51 by Adriane Smith) H/O radical prostatectomy Social History Smoking Status: Current some day smoker tobacco type: cigarettes Physical Exam Const alert and no apparent distress Constitutional Narrative: Patient is thin and frail Chest Chest Narrative: Patient's Pleur-evac box is bubbling continuously on my arrival to the room. Chest tube was kinked at the patient's dressing and not adequately venting. There is crepitus along the left chest wall?consistent with subcutaneous emphysema. Chest tube has a small amount of thin bloody drainage in the tubing, otherwise there does not seem to be any output. Chest tube was set to a suction level of -20 cm of water. Resp Resp Narrative: Bilateral breath sounds present. Auscultation: wheezes expiratory wheezes (Diffusely) Lab / Micro Data Result Diagrams: 08/25/22 09:25 08/25/22 09:25 Labs: Laboratory Results - last 24 hr 08/25/22 09:25: WBC 8.4, RBC 4.95, Hgb 16.6 H, Hct 50.5, MCV 102.0 H, MCH 33.5 H, MCHC 32.9, RDW Std Deviation 51.3 H, RDW Coeff of Samira 13.5, Plt Count 131 L, MPV 9.5, Immature Gran % (Auto) 0.400, Neut % (Auto) 81.9 H, Lymph % (Auto) 8.7 L, [place] % (Auto) 7.0, Eos % (Auto) 1.6, Baso % (Auto) 0.4, Absolute Neuts (auto) 6.9, Absolute Lymphs (auto) 0.73 L, Nucleated RBC % 0 08/25/22 09:25: D-Dimer Quant (PE/DVT) 0.99 H* 08/25/22 09:25: Troponin I High Sens 11 08/25/22 09:25: Lactic Acid 1.9 08/25/22 09:25: B-Natriuretic Peptide 45.3 08/25/22 09:25: Sodium 137, Potassium 4.0, Chloride 98, Carbon Dioxide 32.0, Anion Gap 7, BUN 11, Creatinine 0.71, Estim Creat Clear Calc 50.63, Est GFR (MDRD) Af Amer 139, Est GFR (MDRD) Non-Af 115, BUN/Creatinine Ratio 15.6, Glucose 119 H, Calcium 9.3 Micro: Microbiology 08/25/22 09:34 Nasal Secretion SARS-CoV-2 & FLU Antigen (Rapid) - Final Rhythm Strip Rhythm Strip: Sinus Rhythm Rate: 92 Ectopy: None Radiology Impression Chest X-Ray 08/25/22 10:19 IMPRESSION: Approximately 40% left pneumothorax without mediastinal shift. N.B. : The above Results were Read Back by Jan Christina MD to Anjali Escobar MD, and understanding confirmed on 08/25/2022 10:31:40 (ET). Electronically Signed: Jan Christina MD at 10:34 EST , ADDENDUM: 08/25/22 1041 IMPRESSION: Approximately 40% left pneumothorax without mediastinal shift. N.B. : The above Results were Read Back by Jan Christina MD to Anjali Escobar MD, and understanding confirmed on 08/25/2022 10:31:40 (ET). Electronically Signed: Jan Christina MD at 10:34 EST , Chest CTA 08/25/22 11:46 IMPRESSION: Underlying emphysema with left-sided pneumothorax and a left lateral bladder. No mediastinal shift Chronic interstitial changes in both lung reaves with compressive atelectasis in the left midlung field from the bladder. Dependent atelectasis in the left lung base Degenerative bony changes Calcified coronary vessels Electronically Signed: Jan Christina MD at 13:14 EST , Chest X-Ray 08/25/22 11:50 IMPRESSION: After placement of a small caliber left-sided chest tube, the previously noted left pneumothorax has increased in size since the previous study.. There remains no mediastinal shift. Right lung is clear Electronically Signed: Jan Christina MD at 12:07 EST , Chest X-Ray 08/25/22 14:35 IMPRESSION: Stable left upper lobe chest tube. No change in 30-40% left pneumothorax Electronically Signed: Jagdish Cisneros MD at 15:52 EST , Charges/Coding Visit Charges Inpatient E&M: 30901 Init Hosp L2
[2022-08-26] VITALS (18 sets, daily range): BP systolic 109–117; BP diastolic 75–85; PULSE 76–110; RESP 17–20; TEMP 36.9–37.4; O2SAT 81–97
--- NOTE | 2022-08-26 00:06 | NURSING ---
Received a call from x-ray stating they would be up as soon as they can. There is only one person down in x-ray so it may be a little bit. This rn looked at the order and it was ordered for 2299.
--- NOTE | 2022-08-26 00:09 | RAD_ITS ---
INDICATION: chest tube EXAMINATION/TECHNIQUE: X-RAY - AP view of chest COMPARISON: Chest x-ray from approximately 9 hours prior. FINDINGS: LINES/DEVICES: Small gauge left chest tube again noted. LUNGS: Emphysematous lungs. Reexpansion of left lung with small residual left pneumothorax. MEDIASTINUM AND CARDIOVASCULAR STRUCTURES: Heart normal size. Atherosclerotic calcifications along aorta. BONES AND SOFT TISSUES: Left chest wall and left lower neck subcutaneous emphysema again noted, related to left chest tube. Skeletal degenerative changes. RAD/Chest 1 View (Portable) IMPRESSION: Pulmonary emphysema with left chest tube in place and small residual left pneumothorax. Electronically Signed: Rosendo Rodriguez MD at 0:38 EST ,
[2022-08-26 05:04] LABS: Absolute Lymphocyte Count 0.59 X10^3/uL (0.83-4.51); Hematocrit 49.6 % (40-54); Hemoglobin 15.8 g/dL (13.0-16.5); Lymphocyte # 0.59 X10^3/ul (0.83-4.51); Lymphocyte % 8.6 % (19-41); Mean Corp Hgb Conc 31.9 g/dL (32-36); Mean Corpuscular Hgb 32.6 pg (27.0-32.0); Mean Corpuscular Volume 102.3 fL (80-94); Mean Platelet Vol. 9.5 fl (6.2-12.0); Monocyte# 0.24 X10^3/uL; Monocyte% 3.5 % (0-10); NRBC Flagged by Analyzer 0 % (0-5); Neutrophil # 5.98 X10^3/uL (2.7-7.7); Neutrophil % 87.2 % (47-70); POSITIVE DIFFERENTIAL YES; Platelet Count 122 K/mm3 (150-450); RBC Distribution Width CV 13.2 % (11.6-14.6); RBC Distribution Width SD 50.8 fl (35.1-43.9); Red Blood Count 4.85 M/mm3 (4.6-6.2); White Blood Count 6.9 K/mm3 (4.4-11.0)
[2022-08-26 05:10] LABS: Differential Indicated SCAN CRITERIA MET
[2022-08-26 05:24] LABS: Anion Gap 2 (5-15); BUN 21 mg/dL (7-18); BUN/Creat Ratio 29.1 RATIO (10-20); Calcium,Total 8.8 mg/dL (8.5-10.1); Chloride 100 mmol/L (98-107); Creatinine, Serum 0.72 mg/dL (0.70-1.30); EST Glomerular Filtration Rate 112 mL/min (>60); Est Glom Filt Rate - Afr Amer 136 mL/min (>60); Estimated Creatinine Clearance 47.69 ml/min; Glucose 119 mg/dL (74-106); Potassium 4.6 mmol/L (3.5-5.1); Sodium Level 135 mmol/L (136-145)
[2022-08-26 05:33] LABS: Differential Comment SCANNED
[2022-08-26] MEDS: 0.9% Saline Lock 10 ML Syringe IV ×4 (05:48→20:31)
--- NOTE | 2022-08-26 05:55 | RAD_ITS ---
INDICATION: pneumothorax EXAMINATION/TECHNIQUE: X-RAY - XR Chest 1 View COMPARISON: Chest x-ray from approximately 6 hours prior. FINDINGS: LINES/DEVICES: Stable small gauge left chest tube. LUNGS: Emphysematous lungs again noted, with bullous changes most prominent within lower lungs. Small residual left pneumothorax. Linear scarring versus atelectasis left midlung. MEDIASTINUM AND CARDIOVASCULAR STRUCTURES: Heart size within normal limits. Atherosclerotic calcifications along aorta. BONES AND SOFT TISSUES: Persistent left chest wall subcutaneous emphysema. Skeletal degenerative changes noted. RAD/Chest 1 View (Portable) IMPRESSION: Pulmonary emphysema with small residual left pneumothorax. Electronically Signed: Rosendo Rodriguez MD at 7:57 EST ,
[2022-08-26] MEDS: Ipratropium/Albuterol Sulfate 3 ML AMPUL.NEB INHALATION ×4 (07:06→19:46)
[2022-08-26] MEDS: Ensure Plus High Protein 120 ML LIQUID PO ×4 (07:45→20:37)
[2022-08-26] MEDS: Aspirin E.C. 81 MG Tablet PO (07:45)
[2022-08-26] MEDS: Timolol 0.5% 5ML OPTH.BTL 1 DRP EACH EYE ×2 (09:43→20:29)
--- NOTE | 2022-08-26 10:34 | PN.SURG_ITS ---
Subjective Subjective Patient seen and examined during AM rounds. He is found resting comfortably in bed. He states that he is having an easier time with deep breathing Objective Data Objective Data Vital Signs: Vital Signs Temp Pulse Resp BP Pulse Ox O2 Del Method O2 Flow Rate 99.2 F H 110 H 20 H 109/79 93 Nasal Cannula 2 08/26/22 09:36 08/26/22 10:09 08/26/22 10:09 08/26/22 09:36 08/26/22 09:36 08/26/22 09:36 08/26/22 09:36 Oxygen Flow Rate (L/min) [9] 2 Oxygen Flow Rate (L/min) [8] 2 Oxygen Flow Rate (L/min) [7] 2 Oxygen Flow Rate (L/min) [6] 2 Oxygen Flow Rate (L/min) [5] 2 Oxygen Flow Rate (L/min) [4] 2.5 Oxygen Flow Rate (L/min) [3] 5 Oxygen Flow Rate (L/min) [2] 5 Oxygen Flow Rate (L/min) [1 ( 2 Initial Baseline)] Oxygen Flow Rate (L/min) 2 Oxygen Delivery Method [9] Nasal Cannula Oxygen Delivery Method [8] Nasal Cannula Oxygen Delivery Method [7] Nasal Cannula Oxygen Delivery Method [6] Nasal Cannula Oxygen Delivery Method [5] Nasal Cannula Oxygen Delivery Method [4] Nasal Cannula Oxygen Delivery Method [3] Nasal Cannula Oxygen Delivery Method [2] Nasal Cannula Oxygen Delivery Method [1 ( Nasal Cannula Initial Baseline)] Oxygen Delivery Method Nasal Cannula Weight: 122 lb 1.6 oz Body Mass Index (BMI) 18.6 Intake & Output: Intake and Output for Last 24 Hours 08/24/22 08/25/22 08/26/22 23:59 23:59 23:59 Intake Total 700 / 700 Output Total 350 / 350 490 / 490 Balance 350 / 350 -490 / -490 Lab / Micro Data Result Diagrams: 08/26/22 04:35 08/26/22 04:35 Labs: Laboratory Results - last 24 hr 08/25/22 09:25: Sodium 137, Potassium 4.0, Chloride 98, Carbon Dioxide 32.0, An ion Gap 7, BUN 11, Creatinine 0.71, Estim Creat Clear Calc 50.63, Est GFR (MDRD) Af Amer 139, Est GFR (MDRD) Non-Af 115, BUN/Creatinine Ratio 15.6, Glucose 119 H , Calcium 9.3 08/26/22 04:35: WBC 6.9, RBC 4.85, Hgb 15.8, Hct 49.6, MCV 102.3 H, MCH 32.6 H, MCHC 31.9 L, RDW Std Deviation 50.8 H, RDW Coeff of Samira 13.2, Plt Count 122 L, MPV 9.5, Immature Gran % (Auto) 0.700, Neut % (Auto) 87.2 H, Lymph % (Auto) 8.6 L, Oliver % (Auto) 3.5, Eos % (Auto) 0.0, Baso % (Auto) 0.0, Absolute Neuts (auto) 6.0, Absolute Lymphs (auto) 0.59 L, Nucleated RBC % 0, Differential Comment SCANNED 08/26/22 04:35: Sodium 135 L, Potassium 4.6, Chloride 100, Carbon Dioxide 33.0 H , Anion Gap 2 L, BUN 21 H, Creatinine 0.72, Estim Creat Clear Calc 47.69, Est GFR (MDRD) Af Amer 136, Est GFR (MDRD) Non-Af 112, BUN/Creatinine Ratio 29.1 H, Glucose 119 H, Calcium 8.8 Micro: Microbiology 08/25/22 09:34 Nasal Secretion SARS-CoV-2 & FLU Antigen (Rapid) - Final Radiography Diagnostic Testing: Radiology Impression Chest X-Ray 08/25/22 10:19 IMPRESSION: Approximately 40% left pneumothorax without mediastinal shift. N.B. : The above Results were Read Back by Jan Christina MD to Anjali Escobar MD, and understanding confirmed on 08/25/2022 10:31:40 (ET). Electronically Signed: Jan Christina MD at 10:34 EST , ADDENDUM: 08/25/22 1041 IMPRESSION: Approximately 40% left pneumothorax without mediastinal shift. N.B. : The above Results were Read Back by Jan Christina MD to Anjali Escobar MD, and understanding confirmed on 08/25/2022 10:31:40 (ET). Electronically Signed: Jan Christina MD at 10:34 EST , Chest CTA 08/25/22 11:46 IMPRESSION: Underlying emphysema with left-sided pneumothorax and a left lateral bladder. No mediastinal shift Chronic interstitial changes in both lung reaves with compressive atelectasis in the left midlung field from the bladder. Dependent atelectasis in the left lung base Degenerative bony changes Calcified coronary vessels Electronically Signed: Jan Christina MD at 13:14 EST , Chest X-Ray 08/25/22 11:50 IMPRESSION: After placement of a small caliber left-sided chest tube, the previously noted left pneumothorax has increased in size since the previous study.. There remains no mediastinal shift. Right lung is clear Electronically Signed: Jan Christina MD at 12:07 EST , Chest X-Ray 08/25/22 14:35 IMPRESSION: Stable left upper lobe chest tube. No change in 30-40% left pneumothorax Electronically Signed: Jagdish Cisneros MD at 15:52 EST , Chest X-Ray 08/26/22 00:09 IMPRESSION: Pulmonary emphysema with left chest tube in place and small residual left pneumothorax. Electronically Signed: Rosendo Rodriguez MD at 0:38 EST , Chest X-Ray 08/26/22 05:55 IMPRESSION: Pulmonary emphysema with small residual left pneumothorax. Electronically Signed: Rosendo Rodriguez MD at 7:57 EST , Rhythm Strip Rhythm Strip: Sinus Rhythm Rate: 92 Ectopy: None Physical Exam Const oriented x3 and no apparent distress Neck Neck Narrative: Very subtle amount of crepitus in supraclavicular fossa with palpation. Is nontender Chest Chest Narrative: Patient with left chest tube in place and continuous air leak in waterseal chamber. Chest tube currently set to -30 cm of water. I did test patient's tubing connections and found them to be intact. The tubing is not kinked. When I adjust patient's suction to -20 cm of water it is still venting adequately. I do find some persistent crepitus along the chest tube insertion site at the chest wall with palpation. Resp normal respiratory effort Assessment & Plan Assessment/Plan (1) Pneumothorax: PLAN: This is a 77-year-old male with a history of COPD and former smoker who presents with shortness of breath and left-sided pneumothorax. Surgery is following patient for management of left chest tube placed by emergency medicine. This morning patient has near complete resolution of his pneumothorax, but persistent subcutaneous emphysema in left chest wall extending to left neck base. Patient has a persistent continuous air leak on his chest tube. I have informed him that I am trying to decrease his suction but still encourage appropriate ventilation of the pleural space as a means of trying to encourage his lung to seal. I have also reiterated the need for taking a high- protein diet. Lastly, I did caution the patient that if this air leak did not seal in a timely fashion, he may require transfer to a tertiary facility where thoracoscopic procedures would be possible to intervene for a persistent air leak as we do not have such a capability at this facility. For the interim recommend: ? Continuous suction -20 cmH2O ? Follow-up chest x-ray in a.m. ? Patient encouraged to continue Incentive spirometry and deep breathing/coughing making use of pillow for splinting. To facilitate this patient is encouraged to spend time out of bed in a chair. ? Protein supplementation with ensures Charges/Coding Visit Charges Inpatient E&M: 24370 Subs Hosp L2
--- NOTE | 2022-08-26 12:15 | CASEMGMT ---
Addendum entered by Oriana Albert 08/26/22 15:26: Discussed pt 6 clicks with nurse. States pt has not been oob, therapy ordered. Original Note: SHARDA JAMESON Assessment: Face to Face with pt for initial transition planning/care coordination assessment. RN GISELL introduced self and role at [facility], pt voices understanding and consents to assessment. Pt is A/O x4 and answers all questions appropriately at this time. Pt sitting up in bed with and dtr at bedside with oxygen on in no distress. Care providers, pharmacy, and demographics verified/updated. Admitting Dx: pneumothorax PCP:Jessica Specialists:Pt denies. Preferred Pharmacy: [facility] Retail Insurance: [facility] Prescription Benefit: yes LNOK: Kasie Painter, Living Arrangements: Pt lives with in a two story house with no steps to enter through the back. Pt reports he was I in ADL's and denies concerns at home. Transportation: Pt drives self and denies concerns with transportation. DME/HHC/SNF: Pt has a chairlift to go up to the second story of the home from previous mil. Pt has a rollator and w/c available. reports she is going to buy a shower chair. Pt denies hx of HHC or SNF stays. Pt states no concerns with going home at time of dc. Discussed, should pt go home on oxygen, local in network DME companies and presented them verbally. Pt chose [employer]. Will place green sheet on chart in case pt would need oxygen and be ready for dc. Pt states no further concerns/needs. CM to follow. Advised pt to ask CM if any further question/concerns/needs arise, voices understanding. Pt Goal: Home Plan: Home
--- NOTE | 2022-08-26 12:38 | CASEMGMT ---
According to [facility]'s website, the following tertiary facilities are in network: [facility], [place], [facility], [facility], [facility], [place], [facility] and .
--- NOTE | 2022-08-26 14:24 | CHAPLAIN ---
Type of Pastoral Visit _x__ Initial Visit ___ Follow-up Visit ___ On-call Visit ___ General Patient Visit ___ Spiritual Assessment ___ Family Conference ___ Bereavement ___ Rapid Response ___ Code Blue ___ Other (describe below) Pastoral Care Referral From _x__ Patient ___ Family ___ Nurse ___ Physician ___ [employer] Line Trimmer ___ Football Coach ___ Other (describe below) Sacrament/Intervention _x__ Active listening ___ Anointing ___ Yarsanism ___ Bereavement ___ Communion ___ Shaneka exploration ___ ___ Life review _x__ Prayer ___ Reconciliation ___ Sacrament of Sick _x_ Supportive presence ___ Wedding ___ Other (describe below) Pastoral Comments patient was eating lunch and daughter was with him in the room; pt and daughter give some explanation of situation and state just hope that this takes care of it; pt is not currently supported by a quaker fellowship but he has been connected to ones in the past; pt welcomes prayer; no other needs identified
--- NOTE | 2022-08-26 17:53 | PN.HOSP_ITS ---
Subjective Subjective Patient was seen and examined today, his chest tube remains on suction at this time, patient's sputum showed +3 gram-negative cocci and +3 white blood cells, patient's white blood cell count today was 6.9, his temperature is afternoon was 99.4. Objective Data Objective Data Vital Signs: Vital Signs Temp Pulse Resp BP Pulse Ox O2 Del Method O2 Flow Rate 99.4 F H 95 20 H 116/85 H 94 Nasal Cannula 3 08/26/22 16:31 08/26/22 17:00 08/26/22 16:31 08/26/22 16:31 08/26/22 16:31 08/26/22 16:36 08/26/22 16:31 Oxygen Flow Rate (L/min) [9] 2 Oxygen Flow Rate (L/min) [8] 2 Oxygen Flow Rate (L/min) [7] 2 Oxygen Flow Rate (L/min) [6] 2 Oxygen Flow Rate (L/min) [5] 2 Oxygen Flow Rate (L/min) [4] 2.5 Oxygen Flow Rate (L/min) [3] 5 Oxygen Flow Rate (L/min) [2] 5 Oxygen Flow Rate (L/min) [1 ( 2 Initial Baseline)] Oxygen Flow Rate (L/min) 3 Oxygen Delivery Method [9] Nasal Cannula Oxygen Delivery Method [8] Nasal Cannula Oxygen Delivery Method [7] Nasal Cannula Oxygen Delivery Method [6] Nasal Cannula Oxygen Delivery Method [5] Nasal Cannula Oxygen Delivery Method [4] Nasal Cannula Oxygen Delivery Method [3] Nasal Cannula Oxygen Delivery Method [2] Nasal Cannula Oxygen Delivery Method [1 ( Nasal Cannula Initial Baseline)] Oxygen Delivery Method Nasal Cannula Weight: 55.384 kg Body Mass Index (BMI) 18.6 Intake & Output: Intake and Output for Last 24 Hours 08/24/22 08/25/22 08/26/22 23:59 23:59 23:59 Intake Total 700 / 700 Output Total 350 / 350 515 / 515 Balance 350 / 350 -515 / -515 Lab / Micro Data Result Diagrams: 08/26/22 04:35 08/26/22 04:35 Labs: Laboratory Results - last 24 hr 08/26/22 04:35: WBC 6.9, RBC 4.85, Hgb 15.8, Hct 49.6, MCV 102.3 H, MCH 32.6 H, MCHC 31.9 L, RDW Std Deviation 50.8 H, RDW Coeff of Samira 13.2, Plt Count 122 L, MPV 9.5, Immature Gran % (Auto) 0.700, Neut % (Auto) 87.2 H, Lymph % (Auto) 8.6 L, [place] % (Auto) 3.5, Eos % (Auto) 0.0, Baso % (Auto) 0.0, Absolute Neuts (auto) 6.0, Absolute Lymphs (auto) 0.59 L, Nucleated RBC % 0, Differential Comment SCAN OLLIE 08/26/22 04:35: Sodium 135 L, Potassium 4.6, Chloride 100, Carbon Dioxide 33.0 H , Anion Gap 2 L, BUN 21 H, Creatinine 0.72, Estim Creat Clear Calc 47.69, Est GFR (MDRD) Af Amer 136, Est GFR (MDRD) Non-Af 112, BUN/Creatinine Ratio 29.1 H, Glucose 119 H, Calcium 8.8 Micro: Microbiology 08/26/22 07:58 Sputum, Expectorated/Coughed Gram Stain - Final 08/25/22 09:34 Nasal Secretion SARS-CoV-2 & FLU Antigen (Rapid) - Final Radiography Diagnostic Testing: Radiology Impression Chest X-Ray 08/26/22 00:09 IMPRESSION: Pulmonary emphysema with left chest tube in place and small residual left pneumothorax. Electronically Signed: Rosendo Rodriguez MD at 0:38 EST , Chest X-Ray 08/26/22 05:55 IMPRESSION: Pulmonary emphysema with small residual left pneumothorax. Electronically Signed: Rosendo Rodriguez MD at 7:57 EST , Rhythm Strip Rhythm Strip: Sinus Rhythm Rate: 92 Ectopy: None Physical Exam Const alert, oriented x3 and no apparent distress Constitutional Narrative: Patient is cachectic appearing General Appearance: cooperative, well kempt and well developed Orientation / Consciousness: awake, oriented to person, oriented to place and oriented to time HEENT normocephalic, head/scalp atraumatic and moist oral mucous membranes Eyes PERRL, EOMs intact bilaterally and conjunctivae normal Neck supple, no JVD, thyroid normal and no carotid bruits General: trachea midline Resp normal respiratory effort, no retractions and no use of accessory muscles Resp Narrative: Breath sounds are diminished bilaterally Auscultation: Negative for rales, rhonchi or wheezes Cardio regular rate, regular rhythm, S1 normal heart sound, no murmurs, no rub and no gallops GI normal to inspection, nondistended, normoactive bowel sounds, soft to palpation, non-tender and non-distended Extremity no clubbing, cyanosis or edema Skin no rashes or lesions noted General Skin Exam: no breakdown Neuro oriented x3, CN's II-XII intact bilaterally, no focal motor deficits and no sensory deficits noted Sensorium / Orientation: awake and alert Speech: speech normal Psych affect normal Assessment & Plan Assessment/Plan (1) Pneumothorax: PLAN: Plan 1. Left pneumothorax-secondary to COPD with bleb formation, patient's chest tube remains on suction at this time, general surgery is participating in his care #2 acute hypoxic respiratory failure secondary to left pneumothorax and severe COPD-patient is now on nasal cannula oxygen at 3 L. #3 severe COPD-patient will remain on aerosol treatments #4 positive sputum for gram-negative cocci-etiology unclear at this time, patient is running a low-grade temp at this time, I have decided to place the patient on Augmentin, sputum culture will be pending Charges/Coding Visit Charges Inpatient E&M: 90060 Subs Hosp L2
[2022-08-26] MEDS: Amox/Clavulanate 875 MG Tablet PO (18:45)
[2022-08-26] MEDS: Atorvastatin Calcium 10 MG Tablet PO (20:32)
[2022-08-27] VITALS (35 sets, daily range): BP systolic 65–157; BP diastolic 49–90; PULSE 80–187; RESP 18–24; TEMP 36.4–37.2; O2SAT 6–95
[2022-08-27] MEDS: 0.9% Saline Lock 10 ML Syringe IV ×4 (05:59→21:05)
--- NOTE | 2022-08-27 06:41 | RAD_ITS ---
Follow-up pneumothorax. INDICATION: f/u PTX left EXAMINATION/TECHNIQUE: X-RAY - XR Chest 1 View COMPARISON: 08/26/2022. FINDINGS: LINES/DEVICES: Small-caliber left chest tube in stable position. LUNGS: Large lucency/bulla in the left midlung zone. Probable small left apical pneumothorax. MEDIASTINUM AND CARDIOVASCULAR STRUCTURES: Normal cardiac silhouette. Tortuosity of the thoracic aorta. BONES AND SOFT TISSUES: Subcutaneous emphysema is again seen. RAD/Chest 1 View (Portable) IMPRESSION: Possible small left apical pneumothorax. Probable small left apical pneumothorax. Electronically Signed: Buzz Phelan MD at 14:08 EST ,
[2022-08-27] MEDS: Ipratropium/Albuterol Sulfate 3 ML AMPUL.NEB INHALATION ×2 (07:28→11:11)
[2022-08-27] MEDS: Ensure Plus High Protein 120 ML LIQUID PO ×4 (07:52→21:02)
[2022-08-27] MEDS: Timolol 0.5% 5ML OPTH.BTL 1 DRP EACH EYE ×2 (07:53→21:06)
[2022-08-27] MEDS: Aspirin E.C. 81 MG Tablet PO (07:53)
[2022-08-27] MEDS: Amox/Clavulanate 875 MG Tablet PO ×2 (07:53→21:08)
--- NOTE | 2022-08-27 09:11 | PCM.PN.SRG ---
Subjective Subjective Patient has no new complaints Objective Data Objective Data Vital Signs: Vital Signs Temp Pulse Resp BP Pulse Ox O2 Del Method O2 Flow Rate 99.0 F 80 20 H 157/86 H 92 Nasal Cannula 3 08/27/22 05:54 08/27/22 07:42 08/27/22 07:30 08/27/22 05:54 08/27/22 07:30 08/27/22 07:42 08/27/22 07:42 Oxygen Flow Rate (L/min) [9] 2 Oxygen Flow Rate (L/min) [8] 2 Oxygen Flow Rate (L/min) [7] 2 Oxygen Flow Rate (L/min) [6] 2 Oxygen Flow Rate (L/min) [5] 2 Oxygen Flow Rate (L/min) [4] 2.5 Oxygen Flow Rate (L/min) [3] 5 Oxygen Flow Rate (L/min) [2] 5 Oxygen Flow Rate (L/min) [1 ( 2 Initial Baseline)] Oxygen Flow Rate (L/min) 3 Oxygen Delivery Method [9] Nasal Cannula Oxygen Delivery Method [8] Nasal Cannula Oxygen Delivery Method [7] Nasal Cannula Oxygen Delivery Method [6] Nasal Cannula Oxygen Delivery Method [5] Nasal Cannula Oxygen Delivery Method [4] Nasal Cannula Oxygen Delivery Method [3] Nasal Cannula Oxygen Delivery Method [2] Nasal Cannula Oxygen Delivery Method [1 ( Nasal Cannula Initial Baseline)] Oxygen Delivery Method Nasal Cannula Weight: 122 lb 1.6 oz Body Mass Index (BMI) 18.6 Intake & Output: Intake and Output for Last 24 Hours 08/25/22 08/26/22 08/27/22 23:59 23:59 23:59 Intake Total 700 / 700 220 / 220 Output Total 350 / 350 515 / 835 745 / 745 Balance 350 / 350 -515 / -615 -525 / -525 Lab / Micro Data Result Diagrams: 08/26/22 04:35 08/26/22 04:35 Micro: Microbiology 08/26/22 07:58 Sputum, Expectorated/Coughed Gram Stain - Final 08/25/22 09:34 Nasal Secretion SARS-CoV-2 & FLU Antigen (Rapid) - Final Rhythm Strip Rhythm Strip: Sinus Rhythm Rate: 92 Ectopy: None Physical Exam Const oriented x3 and no apparent distress Resp normal respiratory effort GI soft to palpation and non-tender Assessment & Plan Assessment/Plan (1) Pneumothorax: QUALIFIERS: Pneumothorax type: spontaneous, primary Qualified Code(s): J93.11 - Primary spontaneous pneumothorax PLAN: The patient was noted to have his chest tube disconnected overnight. It was reconnected and placed back to suction. The patient still has a continuous large ongoing airleak. I reviewed the patient's CT scan it appears the patient has severe emphysematous disease with several large bullae. I think this is unlikely to spontaneously seal given the size of the air leak and the patient will likely need bleb resection. I will have the hospitalist service initiate transfer to a tertiary center with thoracic surgery available. I discussed this with the patient in detail. Vivek Moncada MD Pager: [facility] [address] [place] [address], [address] [place] [address] Office:
--- NOTE | 2022-08-27 10:05 | CASEMGMT ---
Per MD patient is being transferred. [facility]
--- NOTE | 2022-08-27 10:25 | PCA ---
Awaiting acceptance for transfer to [facility]
--- NOTE | 2022-08-27 10:59 | NURSING ---
pt talking on telephone, spow 88% on 3L NC. bumped O2 up to 4L while on phone, pt spo2 90-92% now.
--- NOTE | 2022-08-27 11:54 | EKG12_ITS ---
Test Reason : HIGH HR, RIGHT SIDE Blood Pressure : / mmHG Vent. Rate : 182 BPM Atrial Rate : 116 BPM P-R Int : 000 ms QRS Dur : 070 ms QT Int : 232 ms P-R-T Axes : 000 083 016 degrees QTc Int : 403 ms Atrial fibrillation Anterolateral infarct , age undetermined Nonspecific ST abnormality Abnormal ECG Confirmed by RISHI NAQVI, DULCE MARIA ([id number]), marketing editor LENY SIMS ([id number]) on 08/31/2022 10:39:28 AM Referred By: WOO Confirmed By:DULCE MARIA BLACKWELL MD
--- NOTE | 2022-08-27 12:07 | RAD_ITS ---
INDICATION: pneumothorax EXAMINATION/TECHNIQUE: X-RAY - XR Chest 1 View COMPARISON: 08/27/2022, 6:37 AM. FINDINGS: LINES/DEVICES: Left chest tube in stable position. LUNGS: Large lucency in the left midlung zone consistent with large bulla. Residual small left apical and basilar pneumothorax. Atelectatic changes in the left upper and lower lung zones. MEDIASTINUM AND CARDIOVASCULAR STRUCTURES: Cardiac silhouette not enlarged. Central airways and mediastinal contour are unremarkable. BONES AND SOFT TISSUES: Persistent left subcutaneous emphysema. Stable osseous structures. RAD/Chest 1 View (Portable) IMPRESSION: 1. Residual small left basilar and apical pneumothorax. 2. Large bulla in the left midlung zone unchanged. 3. Atelectatic changes in the left lower lung. Electronically Signed: Buzz Phelan MD at 13:27 EST ,
--- NOTE | 2022-08-27 12:08 | NURSING ---
meds not available in [facility], spoke with Ry in pharmacy informed of situation and needing meds elvira- states he will tube them.
[2022-08-27] MEDS: Digoxin 250 MCG/ML Ampul 500 MCG IV (12:13)
[2022-08-27] MEDS: Metoprolol Tartrate 5 MG/5 ML Vial IV (12:25)
[2022-08-27] MEDS: Metoprolol Tartrate 50 MG Tablet PO (12:47)
--- NOTE | 2022-08-27 14:23 | NURSING ---
Dr Abbott notified bp a few minutes ago was 88/70, he said ordered more meds, and wants them given, and monitor for about 30 min to 2 hours, and will reevaluate about transferring to another unit.
[2022-08-27] MEDS: 0.9% Normal Saline 1,000 ML 100 ML IV (14:40)
[2022-08-27] MEDS: Metoprolol Tartrate 25 MG Tablet 50 MG PO (15:08)
[2022-08-27] MEDS: Digoxin 250 MCG/ML Ampul IV (15:15)
--- NOTE | 2022-08-27 16:07 | PN.HOSP_ITS ---
Subjective Subjective Patient was seen and examined today, late this morning he went into atrial fib with rapid ventricular response approximately 180, his blood pressure diminished to the 60s systolic for a brief period of time, patient felt dizzy and lightheaded, the head of his bed was put down, patient was given IV metoprolol 5 mg plus digoxin 500 mcg IV, this decrease the patient's heart rate into the 140s, he was given IV fluids and his pressure eventually stabilized in the 90s to 100 range systolic. Late this afternoon approximately at 4 PM, patient went into normal sinus rhythm in the 70s, patient's blood pressure is better, I have elected to leave the patient on IV fluids overnight, I talked to [facility] about transferring the patient today at the request of general surgery- General surgery (Dr. Moncada) thinks the patient needs to see a chest surgeon, there is a persistent air leak from the patient's chest tube. [facility] excepted the patient but does not have an available bed at this time. is aware of the fact we are transferring him. Objective Data Objective Data Vital Signs: Vital Signs Temp Pulse Resp BP Pulse Ox O2 Del Method O2 Flow Rate 98.3 F 97 24 H 113/84 H 95 Nasal Cannula 6 08/27/22 14:04 08/27/22 16:00 08/27/22 14:04 08/27/22 16:00 08/27/22 14:04 08/27/22 14:08 08/27/22 14:08 Oxygen Flow Rate (L/min) [9] 2 Oxygen Flow Rate (L/min) [8] 2 Oxygen Flow Rate (L/min) [7] 2 Oxygen Flow Rate (L/min) [6] 2 Oxygen Flow Rate (L/min) [5] 2 Oxygen Flow Rate (L/min) [4] 2.5 Oxygen Flow Rate (L/min) [3] 5 Oxygen Flow Rate (L/min) [2] 5 Oxygen Flow Rate (L/min) [1 ( 2 Initial Baseline)] Oxygen Flow Rate (L/min) 6 Oxygen Delivery Method [9] Nasal Cannula Oxygen Delivery Method [8] Nasal Cannula Oxygen Delivery Method [7] Nasal Cannula Oxygen Delivery Method [6] Nasal Cannula Oxygen Delivery Method [5] Nasal Cannula Oxygen Delivery Method [4] Nasal Cannula Oxygen Delivery Method [3] Nasal Cannula Oxygen Delivery Method [2] Nasal Cannula Oxygen Delivery Method [1 ( Nasal Cannula Initial Baseline)] Oxygen Delivery Method Nasal Cannula Weight: 55.384 kg Body Mass Index (BMI) 18.6 Intake & Output: Intake and Output for Last 24 Hours 08/25/22 08/26/22 08/27/22 23:59 23:59 23:59 Intake Total 700 / 700 1220 / 1220 Output Total 350 / 350 515 / 835 760 / 760 Balance 350 / 350 -515 / -615 460 / 460 Lab / Micro Data Result Diagrams: 08/26/22 04:35 08/26/22 04:35 Micro: Microbiology 08/25/22 09:42 Blood Culture (Wb) #2 - Right Hand Blood Culture - Preliminary No growth in 48 hours. 08/25/22 09:25 Blood Culture (Wb) - Anticubital Right Blood Culture - Preliminary No growth in 48 hours. 08/26/22 07:58 Sputum, Expectorated/Coughed Gram Stain - Final 08/25/22 09:34 Nasal Secretion SARS-CoV-2 & FLU Antigen (Rapid) - Final Radiography Diagnostic Testing: Radiology Impression Chest X-Ray 08/27/22 06:41 IMPRESSION: Possible small left apical pneumothorax. Probable small left apical pneumothorax. Electronically Signed: Buzz Phelan MD at 14:08 EST , Chest X-Ray 08/27/22 12:07 IMPRESSION: 1. Residual small left basilar and apical pneumothorax. 2. Large bulla in the left midlung zone unchanged. 3. Atelectatic changes in the left lower lung. Electronically Signed: Buzz Phelan MD at 13:27 EST , Rhythm Strip Rhythm Strip: Sinus Rhythm Rate: 92 Ectopy: None Physical Exam Const alert, oriented x3 and no apparent distress Constitutional Narrative: Patient is cachectic appearing General Appearance: cooperative, well kempt and well developed Orientation / Consciousness: awake, oriented to person, oriented to place and oriented to time HEENT normocephalic and moist oral mucous membranes Eyes PERRL, EOMs intact bilaterally and conjunctivae normal Neck supple, no JVD, thyroid normal and no carotid bruits General: trachea midline Resp normal respiratory effort, no retractions, no use of accessory muscles and clear to auscultation bilaterally Auscultation: Negative for rales, rhonchi or wheezes Cardio regular rate, regular rhythm, S1 normal heart sound, S2 normal heart sound, no murmurs, no rub and no gallops GI normal to inspection, nondistended, normoactive bowel sounds, soft to palpation, non-tender and non-distended Extremity no clubbing, cyanosis or edema Skin no rashes or lesions noted General Skin Exam: no breakdown Neuro oriented x3, CN's II-XII intact bilaterally, no focal motor deficits and no sensory deficits noted Sensorium / Orientation: awake and alert Speech: speech normal Psych affect normal Assessment & Plan Assessment/Plan (1) Pneumothorax: QUALIFIERS: Pneumothorax type: spontaneous, primary Qualified Code(s): J93.11 - Primary spontaneous pneumothorax PLAN: Plan 1. Left pneumothorax-secondary to COPD with bleb rupture, patient's chest tube remains on suction at this time, general surgery is participating in his care, there is a persistent air leak and the patient will need to be transferred to a facility with a chest surgeon. [facility] is agreed to take the patient when a bed is available #2 acute hypoxic respiratory failure secondary to left pneumothorax and severe COPD-patient is now on nasal cannula oxygen at 6 L. #3 severe COPD-due to the patient's episode of atrial fibrillation today, I have elected to keep the patient off aerosol treatments #4 positive sputum for gram-negative cocci-etiology unclear at this time, patient is running a low-grade temp at this time, I have decided to place the patient on Augmentin, sputum culture will be pending #5 paroxysmal atrial fibrillation-patient was in atrial fibrillation for approximately 3 to 4 hours today, he converted to normal sinus rhythm, I do not feel the patient should be on anticoagulation at this time, I have elected to leave the patient on digoxin orally and an oral beta-yudith. Charges/Coding Visit Charges Inpatient E&M: 25026 Subs Hosp L2
[2022-08-27] MEDS: Metoprolol Tartrate 25 MG Tablet PO (21:08)
[2022-08-27] MEDS: Atorvastatin Calcium 10 MG Tablet PO (21:08)
--- NOTE | 2022-08-29 14:55 | PCM.DC.SUM ---
Providers Date of Admission: 08/25/22 Date of Discharge: 08/27/22 Primary Care Physician: Dr. Rosendo Lopez MD Consultations 08/25/22 15:50 Consult: General Surgery Routine Consulting Provider: Chas Mcmahon Reason for Consult: Pneumothorax EMERGENT Consult: No MD Notified: Yes Date Notified: 08/25/22 Time Notified: 13:38 Method of Notification: ED Physician Initiated Reason For Visit: PNEUMOTHORAX Diagnosis Discharge Diagnosis (1) Pneumothorax: Status: Acute Code(s): J93.9 - Pneumothorax, unspecified Qualifiers: Pneumothorax type: spontaneous, primary Qualified Code(s): J93.11 - Primary spontaneous pneumothorax Plan 1. Left pneumothorax-secondary to COPD with bleb rupture, patient's chest tube remains on suction at this time, general surgery is participating in his care, there is a persistent air leak and the patient will need to be transferred to a facility with a chest surgeon. [facility] is agreed to take the patient when a bed is available #2 acute hypoxic respiratory failure secondary to left pneumothorax and severe COPD-patient is now on nasal cannula oxygen at 6 L. #3 severe COPD-due to the patient's episode of atrial fibrillation today, I have elected to keep the patient off aerosol treatments #4 positive sputum for gram-negative cocci-etiology unclear at this time, patient is running a low-grade temp at this time, I have decided to place the patient on Augmentin, sputum culture will be pending #5 paroxysmal atrial fibrillation-patient was in atrial fibrillation for approximately 3 to 4 hours today, he converted to normal sinus rhythm, I do not feel the patient should be on anticoagulation at this time, I have elected to leave the patient on digoxin orally and an oral beta-yudith. Medications at Discharge Home Medications artificial tears(hypromellose) 0.3 % eye drops 1 drp EACH EYE BID DRY EYE 08/25/22 aspirin 81 mg tablet,delayed release 81 mg PO DAILY HEART HEALTH 08/25/22 lovastatin 40 mg tablet 40 mg PO DAILY CHOLESTEROL 08/25/22 timolol maleate 0.5 % eye drops 1 drp EACH EYE BID GLUCOMA 08/25/22 vit C 250 mg-vit E 90 mg-zinc 40 mg-copper 1 kd-bamjcb-qzqjli capsule (PreserVision AREDS-2) 1 tab PO BID SUPPLEMENT 12/29/22 Hospital Course Operations None Procedures None Summary of Care Provided Minutes Spent on Discharge: 31 Hospital Course: This 77-year-old white male was seen in the emergency room at [facility] with a chief complaint of shortness of breath, x-rays were obtained which showed a pneumothorax on the left, CT scan was performed which showed extensive emphysematous changes in his lungs along with large blebs in the left lung. General surgery was contacted, a chest tube was inserted in the emergency room which provided some reexpansion of the left lung. Patient required supplemental oxygen due to hypoxia and respiratory distress. Patient was admitted to [place] [address], he continued to have an air leak from the left-sided chest tube and in follow-up with surgery in the hospital, it was recommended by general surgery (Dr. Moncada) that he be transferred to tertiary facility for possible excision of part of his left lung. [facility] was contacted and agreed to take the patient. Patient was seen on 08/27/2022: On examination he appeared cachectic and frail. Vital signs as documented. Skin warm and dry and without overt rashes. Neck without JVD, neck was supple, trachea midline, thyroid was normal. Lungs: Scattered expiratory rhonchi were noted bilaterally, decreased breath sounds were noted overall. Heart exam notable for regular rhythm, normal sounds and absence of murmurs, rubs or gallops. Abdomen unremarkable and without evidence of organomegaly, masses, or abdominal aortic enlargement. Bowel sounds are present, abdomen is not distended. Extremities nonedematous, no cyanosis was noted, no clubbing was noted. Neuro: Cranial nerves II through XII are grossly intact, no focal motor deficits were noted, sensation to light touch and pinprick intact, motor exam 5/5 throughout. Psych: Patient is alert and oriented x3, he does not appear anxious or depressed, he does not appear agitated. Patient was transferred to [facility] for further care on 08/27/2022 in stable condition. Weight / BMI Weight Weight: 55.384 kg Body Mass Index (BMI) 18.6 ABG / Lab / Microbiology Data Result Diagrams: 08/26/22 04:35 08/26/22 04:35 Microbiology: Microbiology 08/26/22 07:58 Sputum, Expectorated/Coughed Gram Stain - Final 08/26/22 07:58 Sputum, Expectorated/Coughed Respiratory Culture - Final Staphylococcus aureus Pasteurella multocida 08/25/22 09:42 Blood Culture (Wb) #2 - Right Hand Blood Culture - Preliminary No growth in 48 hours. 08/25/22 09:25 Blood Culture (Wb) - Anticubital Right Blood Culture - Preliminary No growth in 48 hours. 08/25/22 09:34 Nasal Secretion SARS-CoV-2 & FLU Antigen (Rapid) - Final Meaningful Use Info Meaningful Use Diagnoses (Choose all that apply): None applicable Discharge Plan Admission Admit Date/Time: 08/25/22 13:34 Attending Provider: Rosendo Abbott Primary Care Provider: Rosendo Lopez Consulting Providers: Chas Mcmahon ; Alex Boles Discharge Orders/Prescriptions Prescriptions: No Action lovastatin 40 mg tablet 40 mg PO DAILY aspirin 81 mg Tablet,Delayed Release (Dr/Ec) 81 mg PO DAILY timolol maleate 0.5 % drops 1 drp EACH EYE BID GenTeal (hypromellose) 0.3 % Drops 1 drp EACH EYE BID PreserVision AREDS-2 250-90-40-1 mg Capsule 1 tab PO BID Referrals / Follow Up: Rosendo Lopez MD [Primary Care Provider] - Disposition Disposition (needs filled in before D/C Order can be placed): Acute Care Hospital Charges/Coding Visit Charges Inpatient E&M: 11418 Disch Hosp >30min
--- NOTE | 2022-08-29 16:03 | NURSING ---
Late entry: Sat. 2021, [address] Abbott an EKG strip with heart of 17o's to 180's. [address]1 [address] Abbott replied and will come up and see pt. He was informed about 30 min ago heart wast 90. Dr Abbott arrived in the room soon after he sent a text.
== END 2022-08-27 22:10 | disposition short-term general hospital (02) | DRG 199 ==
LOC: ED 13:34 → MS3 14:03
PROVIDERS: Admitting Provider Family Medicine; Emergency Provider Emergency Medicine; PCP Family Medicine; Visit Provider Internal Medicine
DX: J93.11 Primary spontaneous pneumothorax (principal); J96.01 Acute respiratory failure with hypoxia; J45.901 Unspecified asthma with (acute) exacerbation; I48.0 Paroxysmal atrial fibrillation; J43.9 Emphysema, unspecified; E78.00 Pure hypercholesterolemia, unspecified; F17.210 Nicotine dependence, cigarettes, uncomplicated; H40.9 Unspecified glaucoma; Z79.82 Long term (current) use of aspirin; Z20.822 Contact with and (suspected) exposure to COVID-19; Z79.899 Other long term (current) drug therapy
CPT/HCPCS: 32551; 36415; 71045; 71275; 80048; 83605; 83880; 84484; 85025; 85379; 87040; 87070; 87186; 87205; 87428; 93005; 94640; 97802; 99152; 99153; 99156; 99251; 99285; J7030; J7040; Q9967; A4216; G0463

== ENCOUNTER → 2022-12-13 | Outpatient (CLI) | payer MEDICARE, SELFPAY ==
--- NOTE | 2022-12-13 07:53 | PR.HP_ITS ---
History of Present Illness Arrival date:: 12/13/22 Arrival time:: 07:50 Date of Referral:: 11/29/22 Date of Evaluation: 12/13/22 Referring Physician: Dr. Patito Amaral @ [facility] Primary Diagnosis: COPD as result of Centrilobular Emphysema mMRC Breathless Scale: When is the patient short of breath? Y/N Grade: Description of Breathlessness: 0 I only get breathless with strenuous exercise. 1 I get short of breath when hurrying on level ground or walking up a slight hill. 2 On level ground, I walk slower than people of the same age because of breathless, or have to stop for breath when walking at my own pace. 3 I stop for breath after walking 100 yards or after a few minutes on level ground. 4 I am too breathless to leave the house or I am breathless when dressing. - Secretions Normal Color:: clear - sinus drainage Thick:: Yes Amount/Day:: 1 TSP PM: Yes Hx of Sleep Apnea: No Do you snore loudly (louder than talking or can be heard through closed doors)?: No Do you often feel tired/ fatigued/ sleepy during daytime?: Yes Has anyone observed you stop breathing during sleep?: No History of Hypertension (for STOP score): Yes STOP Results: Positive Home Medications: Home Medications artificial tears(hypromellose) 0.3 % eye drops 1 drp EACH EYE BID DRY EYE 08/25/22 aspirin 81 mg tablet,delayed release 81 mg PO DAILY HEART HEALTH 08/25/22 lovastatin 40 mg tablet 40 mg PO DAILY CHOLESTEROL 08/25/22 timolol maleate 0.5 % eye drops 1 drp EACH EYE BID GLUCOMA 08/25/22 vit C 250 mg-vit E 90 mg-zinc 40 mg-copper 1 th-dgyoto-okqyoj capsule (PreserVision AREDS-2) 1 tab PO BID SUPPLEMENT 08/25/22 acetaminophen 325 mg tablet (Tylenol) 1,000 mg PO Q6H PRN Pain 12/13/22 albuterol sulfate 90 mcg/actuation aerosol inhaler 2 puff inhalation Q6H PRN Dyspnea 12/13/22 aluminum-mag hydroxide-simethicone 200 mg-200 mg-25 mg chewable tablet 2 tab PO Q6H PRN Constipation 12/13/22 docusate sodium 100 mg capsule (Colace) 100 mg PO DAILY 12/13/22 fluticasone fur. 200 mcg-umeclid 62.5 mcg-vilant 25 mcg inhalat.powder (Trelegy Ellipta) 1 inh inhalation DAILY 12/13/22 fluticasone propionate 50 mcg/actuation nasal spray,suspension 1 spray intranasal DAILY 12/13/22 guaifenesin 600 mg tablet, extended release 12 hr (Mucinex) 600 mg PO BID 12/13/22 polyethylene glycol 3350 17 gram/dose oral powder (Miralax) 17 g PO DAILY 12/13/22 Allergies/Adverse Reactions: Allergies No Known Allergies Allergy (Verified 08/25/22 09:27) Medical Utilization Do you use a peak flow meter at home?: No Do you use a spacer device with your inhalers?: Yes Number of hospital visits in the last year?: 1 Number of emergency room visits in the last year?: 1 Do you see your physician on a regular schedule?: Yes How often?: 6 months; 3 months w/Dr. Amaral @ [facility] Advanced Directives - Advanced Directives Power of Licensed Vocational Nurse: No Living Will: No Advance Directives Information Provided: Yes Advance Directives on File: No DNR Order?:: No - MOLST See MOLST form: No Past Medical History - Covid-19 Screening Fever: No Current respiratory symptoms: Yes - Dyspnea as result of his COPD/Emphysema Upper respiratory infections symptoms: Yes - Kaden exacerbation Vlp-Vvlj-Oykxtc symptoms: Yes - Chronic Sinusitis/Rhinitis Has tested positive for COVID-19 in last 30 days: No Date of testin12/13/22 - 2-step vaccine [employer] Had contact w/person w/symptoms or Covid-19 (+) last 14 days: No Has High Risk Exposures ID'd by Health dept/Inf Control team: No 65 years or older:: Yes Lives in Assisted Living facility:: No Has a chronic lung disease or moderate to severe asthma:: Yes Has a serious heart condition:: No Immunocompromised:: No Severely obese (Body Mass Index of 40 or higher):: No Diabetic:: No Has chronic kidney disease undergoing dialysis:: No Has liver disease:: No Medical History: Past Medical History (Last Updated 08/25/22 @ 13:52 by Adriane Smith) Asthma exacerbation in COPD J44.1, J45.901 COPD (chronic obstructive pulmonary disease) J44.9 Glaucoma H40.9 High cholesterol E78.00 Prostate CA C61 prostate removed hx radiation therapy Surgical History: Past Surgical History (Last Updated 08/25/22 @ 13:51 by Adriane Smith) H/O radical prostatectomy Z90.79 for cancer Family History: Family History (Last Updated 08/25/22 @ 13:[address] Alex Boles MD) Other COPD (chronic obstructive pulmonary disease) Heart disease Hypertension - Current/ Previous Services Pulmonary Rehab:: No Social History - Smoking History Smoking Status: Former smoker Years Smokin Packs Smoked per Day: 0.5 Hx Tobacco Use: Yes Hx Smoking Exposure: Yes - Alcohol Use Alcohol Usage: No - Substance Abuse Hx Substance Use: No - Occupation Occupation (List type of work in comments):: Retired - Hobbies, Recreation, Social Activities Hobbies: Woodworking, Reading, Other - [employer] Recreational Activities: I am able to engage in all my recreational activities Functioning ADL/IADL - Current Ability Current Ability: Independent Self-Care (e.g.,grooming, dressing, & bathing), Independent Ambulation, Independent Transfer, Independent Household tasks (e.g., light meal prep, laundry, shopping) - Pt Functioning Prior to Problem Prior Functioning: Self-Care (e.g.,grooming, dressing, & bathing): Independent, Ambulation: Independent, Transfer: Independent, Household tasks (e.g., light meal prep, laundry, shopping): Independent Social Environment - Status Marital Status: - Current Living Arrangements Living Environment:: Spouse - Children How many children do you have?: 5 Do any of your children live nearby?: Yes - [place] - Safety Do you feel safe in your surroundings?: Yes - Assistance Do you need any assistance at home?: no Review of Systems Review of Systems: Right click = Denies (Slash). Left click = Reports ([place]) Respiratory: Reports: Cough - rare but due to sinus drainage, SOB upon Exertion, Appetite, Normal, Fatigue, Sleep, Normal. Denies: Sputum production, Wheezing, Dizziness/Lightheadedness, PVD, Sexual changes Is Patient Pain Free?: No Pain Location: none Risk Factor Assessment - Vital Signs Temperature: 97.9 F Pulse Rate: 80 Pulse Rhythm: Regular Respiratory Rate: 16 Pulse Ox: 94 Blood Pressure: 129/79 - Diabetes Nutrition Referral for Diabetes: No - Obesity Height: 5 ft 8 in Weight:: 130 lb Weight in Pounds: 130.0 lbs Weight Source: Standing Scale Body Mass Index (BMI): 19.8 Nutritional Referral for Obesity: Yes - Malnutrition Risk, weight loss, use of protein supplement - Physical Activity Physical Inactivity: None - Risk Stratification Risk Guidelines: Lowest Risk: Risk Factor for Dyslipidemia, Risk Factor for Diabetes, Risk Factor for Obesity - Risk malnutrition, Risk Factor for Hypertension, Moderate Risk: Risk Factor for Depression, Highest Risk: Risk Factor for Smoking - recent with July 2022, Risk Factor for Sedentary Lifestyle Motivation - Motivation to Participate On a scale of 1 to 10, how prepared are you to commit to attending program?: 10 What do you see as barriers to successfully being able to complete the program?: don't believe so I do have a $20/visit co-pay What do you see as the benefits of succesfully completing the program? In other words, what do you hope to get out of participating in the program?: Do some of the activities cant do now, get stronger, maybe reduce oxygen us Are there issues you are dealing with that will interfere with completing the program?: no Do you have a spouse or signficant other, family or friends who will help support you to complete the program?: Yes Diagnostic Data Review - 6 Minute Walk Test 6 Minute Walk Test: Christina walked 185 meters after walking 3 minutes on room air SpO2 decreased to 87% christina placed on 4 liters oxygen adn kept his SpO2> 90% - Pulmonary Function Test FEV1:: 0.99 - 35% FVC:: 2.60 - 70% FEV1/FVC%:: 38 Gold Classification: GOLD class III(severe COPD)with FEV1/FVC<70, 30%</=FEV1< 50% predicted
--- NOTE | 2022-12-13 07:53 | PR.ITP_ITS ---
General Information2 - General Information Admitting Diagnosis: COPD as result of centrilobular emphysema Secondary Diagnosis: Pneumothorax, acute respiratory failure, atrial fibrillation, HTN, HLD Gold Classification:: GOLD 3: Severe - PFT FEV1:: 0.99 - 35% FVC:: 2.60 - 70% FEV1/FVC%:: 38 - Personal Learning Style/Barriers Barriers to Learning: Vision impaired Educational Classes CO: Living with Chronic Lung Disease: Initial Assessment, Breathing Retraining: Initial Assessment, Exercise: Initial Assessment, Energy Conservation: Initial Assessment, Nutrition: Initial Assessment, Oxygen therapy: Initial Assessment - Education/Goals Individual Counseling: Initial Assessment: Nicotine/Smoking CO Patient Goals: Quit Smoking: Initial Assessment, Increase muscle strength: Initial Assessment, Experience less dyspnea: Initial Assessment, Improve energy level: Initial Assessment, Participate in home exercise: Initial Assessment, Improve the ability to cope with ADLs: Initial Assessment, Improve knowledge of lung disease: Initial Assessment, Understand how to use medications: Initial Assessment, Increase knowledge of oxygen use: Initial Assessment, Control panic/anxiety: Initial Assessment, Improve diet and nutrition: Initial Assessment, Improve my quality of life: Initial Assessment, Reduce Stress/relaxation techniques: Initial Assessment Exercise - Initial Assessment - Visit Date of Eval: 12/13/22 Session Number:: 0 - Pre CO Evaluation - Problem/Goals Problems: Deconditioning, No regular exercise, Knowledge deficit exercise guidelines, Knowledge deficit exercise safety Goals:: Aerobic exercise 30-60 mins x 12 weeks [36 sessions] - Functional Capacity Test Number of feet walked: 185 Lowest SPO2 %: 87 O2 L/M: 4 - Started on 02 @ 4 liters - Physician Prescribed Exercise Modalities: Treadmill, NuStep, SciFit, Lateral Product Development Coordinator Frequency (days/week): 3 Duration (Minutes):: 35 Intensity: 60-80% of age predicted maximum heart rate reserve Current METSs:: 2.0 Target HR:: 106 - THRR 85-106 for first 3-4 weeks Resting Blood Pressure: 129/79 Minimum SpO2 with exercise: 87 - 6-MWT EKG Type: Atrial Fibrillation Current Minutes of Exercise: None - Plan Plan and Plan to Review:: Benefits of exercise, Core components of exercise, How to measure dyspnea level, How to monitor dyspnea level, Exercise intensity, Exercise safety guideline, Home exercise guidelines, Aniyah: 3-4/11-13 Nutrition/Wt Mgmt - Initial - Visit Date of Eval: 12/13/22 Session Number:: 0 - Pre-CO Evaluation - Problems/Goals Problems: Underweight Goals: BMI 21-25 - Weight Management Knowledge Deficit Management of:: Underweight Admit Height:: 5 ft 8 in Admit Weight:: 130 lb Admit BMI:: 19.8 - Intervention Referral to dietitian:: Yes - Medical Nutrition Therapy-Malnutrition Will attend diet classes:: Yes Intervention/Plan: Instruct on ideal BMI & set weight loss goal w/patient - Plan Nutrition Plan: Yes Review BMI or WC & identify target wt & strategies for wt control, Yes Nutrition education class:, Yes Weight control education class: Psychosocial - Initial Assess - Visit Date of Eval: 12/13/22 Session Number:: 0 - Pre-CO evaluation - Psychosocial Test Tool Used:: Pulmonary QOL, PHQ-9 Questionnaire - Referral to Behavioral Health PS - Interventions: Yes Attend Stress Management Classes, No Referral to Behavioral Health if PHQ-9 score >9:, No Referral to [facility], No Referral to Physician if PHQ-9 if score is 5-9: - Intervention/Plan: See List Interventions/Plan:: Assess stressors,coping strategies & signs of derpression on admission, Instruct/assist pt to develop coping & personal stress Mgt strategies, Instruct patient to recognize signs & symptoms of depression, Instruct patient to recog Oxygen & Oxygen Titration Init - Visit Date of Eval: 12/13/22 Session Number:: 0 - Pre-CO evaluation - Initial Assessment Oxygen on Admission: Oxygen at HS SpO2:: 94 Port O2:: 4 liters DME:: [facility] [place] [employer] [phone] Patient Reports:: Prod cough daily <1 Tbsp, Nasal Congestion, Hospitalized in the past 12 months [list how many times] Exacerbation Date: 08/25/22 - Pneumothorax - Acute Respiratory Failure - Goal Oxygen & Oxygen Tritration Goals: Effective hypoxemia control, Uses O2 as Rx'd/safely - Plans Plan: Monitor SpO2 rest & with exercise, Train appropriate O2 use at rest, Train appropriate O2 use with exercise, Train O2 safety & systems Reviewed prescribed medications:: Purpose, Schedule, Side effects, Importance of compliance Instruct correct technique/timing & care:: MDI, DPI, Return demo use of inhaler Bronchial Hygiene Plan: Controlled cough, Vibratory PEP device, Hydration, Evaluate sputum, Signs/symptoms to report: Core Components - Initial - Visit Date of Eval: 12/13/22 Session Number:: 0 - Pre-CO Evaluation - Hypertension Hypertension Diagnosis:: Hypertension ICD-10 I10 BP: 129/79 [place] [employer] Hypertension Guidelines: [place] [employer] Hypertension Guidelines. Normal BP Less than 120/80. Elevated BP 120/80. Hypertension Stage 1: BP 130-139/80-89. Hypertesnion Stage 2: BP 140 or higher/90 or higher. Hypertension Crisis: BP higher than 180/120 Blood Pressure: 129/79 Outcomes/Goals: Able to verbalize/achieve optimal blood pressure <130/80, Incorporates diet changes & exercise for blood pressure control by DC - Tobacco - Initial Assessment Tobacco Program Goals: Complete smoking cessation. Attend education classes. Improve Knowledge Test score Stages of Change:: Preparation Learning Barriers: Vision Do you have family support?: Yes Tobacco Use: Cigarettes How long ago did you quit using tobacco products?: Less than 6 months ago How many cigarettes do you smoke per day?: 0.5 Years Smokin Do you use smokeless tobacco?: No Smoking Cessation Referral:: Yes Individual Education/Counseling:: Yes Education Schedule Given:: Yes Gave Education Materials For:: Tobacco Triggers, Pulmonary Disease, Risk Factors, Breathing Techniques, Medical Compliance, Pulmonary A&P, Exacerbation Signs & Symptoms, Stress & Relaxation - Exacerbation Mgmt & Airway Clearance Hypoxemia Goals:: Hypoxemia managed, Port system, Using O2 as Rx's safely Bronchial Hygiene Problems:: Respiratory infection Prevention/Management Goals: Pt demonstrates effective cough, effective secretion clearance., Pt describes signs and symptoms of infection. Patient Reports:: Prod cough daily <1 Tbsp, Nasal Congestion, Hospitalized in the past 12 months [list how many times] Plan: Monitor SpO2 rest & with exercise, Train appropriate O2 use at rest, Train appropriate O2 use with exercise, Train O2 safety & systems Instruct correct technique/timing & care:: MDI, DPI, Return demo use of inhaler Bronchial Hygiene Plan: Vibratory PEP device, Role of exercise in secretion clearance, Hydration, Evaluate sputum, Signs/symptoms to report:, Influenza/Pneumovax vaccines - Medication Interventions/plans: Instruct on medication effects & side effects, Review medication list w/patient every two weeks, Instruct importance of taking meds as ordered & assist problem solving Medication Goals: Adherence to prescribed medications, Correct technique/timing & care of MDI, DPI, nebulizer, and spacer. Does pt report taking home meds as prescribed?: Yes Medications: Yes MDI, Yes DPI Reviewed prescribed medications:: Purpose, Schedule, Side effects, Importance of compliance - Diabetes Diabetes:: No - Heart Failure Ejection fraction %:: 0 - No Echocardiogram available Core Components - 30 DAYS Core Components - 60 DAYS Core Components - 90 DAYS Core Components - Final Patient Health Questionnaire Initial Assessment 1. Little interest or pleasure in doing things: Several days 2. Feeling down, depressed, or hopeless: Several days 3. Trouble falling or staying asleep, or sleeping too much: Not at all 4. Feeling tired or having little energy: Several days 5. Poor appetite or overeating: Not at all 6. Feeling bad about yourself -- or that you are a failure or have let yourself or your family down: Several days 7. Trouble concentrating on things, such as reading the newspaper or watching television: Not at all 8. Moving or speaking so slowly that other people could have noticed. Or the opposite - being so fidgety or restless that you have been moving around a lot more than usual: Not at all 9. Thoughts that you would be better off , or of hurting yourself in some way: Not at all Total Score: 4 Knowledge Questionaire (BCKQ) - Information Information: [place] COPD Knowledge Questionnaire (BCKQ) This questionnaire is designed to find out what you know about your lung problem. It should be completed without help form anyone else. This usually takes between 10 and 20 minutes. Your answers will help us to find out what information you need to help you to understand and manage your lung condition. [place] the [place] which you think is the correct answer. - Questions b. COPD can only be confirmed by breathing tests: True c. In COPD ther is usually gradual worsening over time: True d. In COPD oxygen levels in the blood are always low: Don't know e. COPD is usually in people less than 40 years old: True Angelina than 80% of COPD cases are caused by cigarette smoking: True b. COPD can be caused by occupational dust exposure: True c. Longstanding asthma can develop into COPD: Don't know d. COPD is commonly an inherited disease: False e. Women are less vunerable to the effects of cigarette than men: Don't know a. Swelling of the ankles is common in COPD:: False b. Fatigue [tiredness] is common in COPD: True c. Wheezing is common in COPD: True d. Crushing chest pain is common in COPD: False e. Rapid weight loss is common in COPD: True a. Severe breathlessness prevents travel by air: Don't know b. Breathlessness can be worsened by eating large meals: False c. Breathlessness means that your oxygen levels are low: True d. Breathlessness is a normal response to exercise: True e. Breathlessness is primarily caused by a narrowing of the bronchial tubes: Don't know a. Coughing phlegm is a common symptom in COPD: True b. Clearing phlegm is more difficult if you get dehydrated: True c. Bronchodilator inhalers can help clear phlegm: True d. Phlegm causes harm if swallowed: Don't know e. Clearing phlegm can be assisted by breathing exercises: True a. Chest infections often cause coughing of blood: Don't know b. Chest infection phlegm usually becomes coloured (ylw/grn): True cExerbations (episodes of worsening) can occur in the absence of chest infection: Don't know d. Chest infections are always accompanied by a high temperature: False e. Steroid tablets should be taken whenever there is an exacerbation: Don't know aWalking excercises better than breathing to improve fitness: Don't know b. Exercise should be avoided as it strains the lungs: False c. Exercise can help maintain your bone density: True d. Exercise helps relieve depression: True e. Exercise should be stopped if it makes you breathless: False a. Stopping smoking will reduce the risk of heart disease: True b. Stopping smoking will slow down further lung damage: True c. Stopping smoking is pointless as the damage is done: False d.Stopping smoking usually results in improved lung function: Don't know eNicotine replacement therapy only available on prescription: False a. A flu jab is recommended every year: True b. You can get flu from having a flu jab: True c. You can only have a flu jab if you are 65 or over: False d. A pneumonia jab protects against all forms of pneumonia: Don't know e.You can have a pneumonia jab and a flu job on the same day: True a. Bronchodilators act quickly (within 10 minutes): Don't know b. Both short & long acting bronchodilators can be taken on the same day: True c. Spacers (volumatic,nebuhaler,serochamber)should be dried w/atowel after washing: True d. A spacer device increases the medication to the lungs: Don't know e. Tremor may be a side effect of bronchodilators: Don't know a. To be effective, the course should last at least 10 days: Don't know b. Excessive use of antibiotics can cause resistant bacteria (germs): True c. Antibiotics will clear all chest infections: False d. Antibiotic treatment is necessary for an exacerbation (worsening) however mild: Don't know e. Seek advice if antibiotics cause severe diarrhoea: True a. Steroid tablets help strengthen muscles: Don't know b. Steroid tablets should be avoided if there is a chest infection: Don't know c. The risk of long-term side effects due to steroids is less w/short courses then w/continous treatment: True dIndigestion is common side effect from using steroid tablet: Don't know e. Steroid tablets can increase your appetite: Don't know a. Inhaled steroids should be stopped if you are given steroid tablets: Don't know bSteroid inhalers can be used for rapid relief breathlessnes: True c. Spacer devices reduce the risk of getting thrush in the mouth: True d.Steroid inhaler should be taken before your bronchodilator: Don't know e. Inhaled steroids improve lung function in COPD: Don't know COPD Assessment Test [CAT] - Questions Never cough = 0, Cough all the time = 5: 2 No phlegm = 0, Chest full of phlegm = 5: 0 No chest tightness = 0, Chest very tight = 5: 0 No breathless w/exertion = 0, Very breathless w/exertion = 5: 1 No limitations w/activity = 0, Very limited w/activity = 5: 2 Confident leaving home = 0, Not at all confident = 5: 0 Sleep soundly = 0, Don't sleep soundly = 5: 1 Lots of energy = 0, No energy at all = 5: 3 Total CAT score:: 9 Self-Efficacy Initial Assessment We would like to know how confident you are in doing certain activities. Please select your confidence level for:: Select your confidence level for the following using the scale 1-10 where 1 is not at all confident and 10 is totally confident. Your score is the average of all 6 responses. Fatigue: How confident are you that you can keep the fatigue caused by your disease from interfering with the things you want to do? Select Number: 9 Physical Discomfort or Pain: How confident are you that you can keep the physical discomfort or pain of your disease from interfering with the things you want to do? Select Number: 10 Emotional Distress: How confident are you that you can keep the emotional distress caused by your disease from interfering with the things you want to do? Select Number: 8 Other Symptoms or Health Problems: How confident are you that you can keep other symptoms or health problems from interfering with the things you want to do? Select Number: 9 Different Tasks and Activities: How confident are you that you can do the different tasks and activities needed to manage your health condition so as to reduce your need to see a doctor? Select Number: 10 Medication: How confident are you that you can do things other than just taking medication to reduce how much your illness affects your everyday life? Select Number: 10 Total Score:: 9 Nutrition Survey - Nutrition Survey Initial Have you lost >10 lbs over the past 2 months without trying?: Yes Are you following a special diet at home for diabetes, low fat, or low salt?: No Are you interested in meeting with a dietitian for help understanding your diet?: Yes Do you eat less than 3 meals a day?: No Do you eat fatty meats (alexandra, sausage, ribs, etc), fried foods, desserts, large amounts of salad dressings, margarine, butter, or cheese most days?: Yes Do you have food allergies? [Enter types in comment field]: No Do you eat in restaurants more than 3 times a week?: No Do you season food with salt, seasoning salt, or garlic salt?: Yes Do you used canned, boxed, frozen meals, or soups, seasoning packets?: Yes Total Score:: 5
[2022-12-13 08:51] VITALS: BP 129/79; PULSE 80; RESP 16; TEMP 36.6; O2SAT 94; BMI 19.8
[2022-12-13 09:51] VITALS: BP 129/79; O2SAT 94; BMI 19.8
== END | disposition home or self-care (01) ==
LOC: PR 07:48
PROVIDERS: PCP Family Medicine
DX: J43.2 Centrilobular emphysema (principal); I10 Essential (primary) hypertension; R06.00 Dyspnea, unspecified; Z87.891 Personal history of nicotine dependence; R05.9 Cough, unspecified

== ENCOUNTER 2022-12-23 13:00 | Outpatient (RCR) | payer MEDICARE, SELFPAY | END 2022-12-25 23:59 | LOC: PR 13:00 | PROVIDERS: PCP Family Medicine | DX: J43.2 Centrilobular emphysema (principal) | CPT/HCPCS: 97150; 94626 ==

== ENCOUNTER 2023-01-18 13:00 | Outpatient (RCR) | payer MEDICARE, SELFPAY ==
--- NOTE | 2023-01-09 08:22 | PR.ITP_ITS ---
Exercise - 30-Day Assessment - Visit Date of Eval: 01/09/23 Session Number:: 12 - Physician Prescribed Exercise Modalities: Treadmill, NuStep, SciFit Frequency (days/week): 3 Duration (Minutes):: 30-45 Intensity: 60-80% of age predicted maximum heart rate reserve Aerobic Exercise [30-60 min 3-7x/week]:: Progressing Current METSs:: 3 Target RPE 12-16:: 13 Maximum Exercise HR:: 100 Resting Blood Pressure: 112/70 Maximum Exercise Blood Pressure: 144/82 Minimum SpO2 with exercise: 91 EKG Type: NSR to ST Current Minutes of Exercise: 30-45 Nutrition/Wt Mgmt - 30-Day - Visit Date of Eval: 01/09/23 Session Number:: 12 - Weight Management Height: 5 ft 8 in Weight:: 60.781 kg BMI: 20.3 Weight Goals Progress:: Progressing - goal is to gain weight. Pt has gained 4 lbs Psychosocial - 30-Day - Visit Date of Eval: 01/09/23 Session Number:: 12 - Psychosocial Test Tool Used:: Pulmonary QOL, PHQ-9 Questionnaire - Referral to Behavioral Health PS - Interventions: Yes Attend Stress Management Classes - Plan Interventions/Plan:: Assess stressors,coping strategies & signs of derpression on admission, Instruct/assist pt to develop coping & personal stress Mgt strategies, Refer to Behavioral Health if appropriate, Refer to Physician if appropriate, Instruct patient to recognize signs & symptoms of depression, Instruct patient to recog, Other additional plan/intervention Oxygen & Oxygen Titration 30D - Visit Date of Eval: 01/09/23 Session Number:: 12 - Reassessment Reassessment- 30 Days: Demonstrate knowledge of O2 Rx at rest & w/exercise, Using O2 as Rx'd, Has home O2 as Rx'd, Uses port O2 as Rx'd SpO2:: 95 Core Components - Initial Core Components - 30 DAYS - Visit Date of Eval: 01/09/23 Session Number:: 12 - Hypertension Hypertension Diagnosis:: Hypertension ICD-10 I10 Resting Blood Pressure:: 112/70 [place] [employer] Hypertension Guidelines: [place] [employer] Hypertension Guidelines. Normal BP Less than 120/80. Elevated BP 120/80. Hypertension Stage 1: BP 130-139/80-89. Hypertesnion Stage 2: BP 140 or higher/90 or higher. Hypertension Crisis: BP higher than 180/120 Peak Exercise Blood Pressure:: 144/82 Change in medication: No Outcomes/Goals: Able to verbalize/achieve optimal blood pressure <130/80, Incorporates diet changes & exercise for blood pressure control by DC, Other additional outcomes/goals Interventions/plan: Instruct on optimal blood pressure, hypertension & medications, Instruct on effects of sodium, alcohol, stress, exercise &hypertension, Other additional plan/interventions 30 day Reassessments:: Progressing - encouraged to take meds - Tobacco - 30-Day Tobacco Program Goals: Complete smoking cessation. Attend education classes. Improve Knowledge Test score Stages of Change:: Action Learning Barriers: Participates in education Do you have family support?: Yes Tobacco Use: Non-smoker - stopped smoking less than 6 months ago Do you use smokeless tobacco?: No Smoking Cessation Referral:: Yes Education Schedule Given:: Yes Gave Education Materials For:: Tobacco Triggers, Pulmonary Disease, Risk Factors, Breathing Techniques, Medical Compliance, Pulmonary A&P, Exacerbation Signs & Symptoms, Stress & Relaxation 30-day Reassessments:: Progressing - pt is doing well - Exacerbation Mgmt & Airway Clearance Reassessment: Demonstrates knowledge of O2 Rx at rest, Demonstrates knowledge of O2 Rx with exercise, Using O2 as prescribed, Has home O2 as prescribed, Uses port O2 as prescribed - Medication Medication list reviewed:: Yes - Diabetes Diabetes:: No - Heart Failure Documenting weight marv: Yes Core Components - 60 DAYS Core Components - 90 DAYS Core Components - Final Patient Health Questionnaire 30-Day Re-eval Assessment 1. Little interest or pleasure in doing things: Several days 2. Feeling down, depressed, or hopeless: Several days 3. Trouble falling or staying asleep, or sleeping too much: Not at all 4. Feeling tired or having little energy: Several days 5. Poor appetite or overeating: Not at all 6. Feeling bad about yourself -- or that you are a failure or have let yourself or your family down: Several days 7. Trouble concentrating on things, such as reading the newspaper or watching television: Not at all 8. Moving or speaking so slowly that other people could have noticed. Or the opposite - being so fidgety or restless that you have been moving around a lot more than usual: Not at all 9. Thoughts that you would be better off , or of hurting yourself in some way: Not at all How difficult have these problems made it for you to do your work, take care of things at home, or get along with other people?: Not difficult at all Total Score: 4 Knowledge Questionaire (BCKQ) - Information Information: [place] COPD Knowledge Questionnaire (BCKQ) This questionnaire is designed to find out what you know about your lung problem. It should be completed without help form anyone else. This usually takes between 10 and 20 minutes. Your answers will help us to find out what information you need to help you to understand and manage your lung condition. [place] the [place] which you think is the correct answer. Self-Efficacy 30-Day Re-eval Assessment We would like to know how confident you are in doing certain activities. Please select your confidence level for:: Select your confidence level for the following using the scale 1-10 where 1 is not at all confident and 10 is totally confident. Your score is the average of all 6 responses. Fatigue: How confident are you that you can keep the fatigue caused by your disease from interfering with the things you want to do? Select Number: 9 Physical Discomfort or Pain: How confident are you that you can keep the physical discomfort or pain of your disease from interfering with the things you want to do? Select Number: 10 Emotional Distress: How confident are you that you can keep the emotional distress caused by your disease from interfering with the things you want to do? Select Number: 8 Other Symptoms or Health Problems: How confident are you that you can keep other symptoms or health problems from interfering with the things you want to do? Select Number: 9 Different Tasks and Activities: How confident are you that you can do the different tasks and activities needed to manage your health condition so as to reduce your need to see a doctor? Select Number: 10 Medication: How confident are you that you can do things other than just taking medication to reduce how much your illness affects your everyday life? Select Number: 10 Total Score:: 9 Nutrition Survey
[2023-01-09 08:36] VITALS: BP 112/70; BP 144/82; O2SAT 95; BMI 20.3
== END 2023-01-25 23:59 ==
LOC: PR 13:00
PROVIDERS: PCP Family Medicine
DX: J43.9 Emphysema, unspecified (principal)
CPT/HCPCS: 97150; 97802; 94626

== ENCOUNTER 2023-02-22 13:00 | Outpatient (RCR) | payer MEDICARE, SELFPAY ==
[2023-01-09 08:36] VITALS: BMI 20.3
[2023-01-26 00:40] VITALS: BP 112/70; BP 144/82
--- NOTE | 2023-02-08 06:57 | PCM.PR.TP ---
Exercise - 60-Day Assessment - Visit Date of Eval: 02/08/23 Session Number:: 23 - Physician Prescribed Exercise Modalities: Treadmill, NuStep, SciFit Frequency (days/week): 3 Duration (Minutes):: 55 Intensity: 60-80% of age predicted maximum heart rate reserve Aerobic Exercise [30-60 min 3-7x/week]:: Progressing Aniyah-13 Current METSs: 3.0 Target HR:: 106 - THRR 93-106 Current RPD:: 2-3 Maximum Exercise HR:: 115 Resting Blood Pressure: 110/64 Maximum Exercise Blood Pressure: 130/84 Minimum SpO2 with exercise: 91 EKG Type: NSR to sinus tachycardia w/ PVCs, vent quadrigemeny ectopic atrial tach Current Minutes of Exercise: 55 - Home Exercise Mode: Walking Frequency:: daily Time (minutes):: 30 Nutrition/Wt Mgmt - 60-Day - Visit Date of Eval: 02/08/23 Session Number:: 23 - Weight Management Height: 5 ft 8 in Weight:: 134 lb BMI: 20.3 Weight Goals Progress:: Goal met Psychosocial - 60-Day - Visit Date of Eval: 02/08/23 Session Number:: 23 - Psychosocial Test Tool Used:: PHQ-9 Questionnaire - Referral to Behavioral Health PS - Interventions: Yes Attend Stress Management Classes, No Referral to Behavioral Health if PHQ-9 score >9:, No Referral to [facility], No Referral to Physician if PHQ-9 if score is 5-9: - Plan Interventions/Plan:: Assess stressors,coping strategies & signs of derpression on admission, Instruct/assist pt to develop coping & personal stress Mgt strategies Oxygen & Oxygen Titration 60D - Visit Date of Eval: 02/08/23 Session Number:: 23 - Reassessment Reassessment- 60 Days: Demonstrate knowledge of O2 Rx at rest & w/exercise, Using O2 as Rx'd, Has home O2 as Rx'd, Uses port O2 as Rx'd Breath Sounds:: Diminished, Insp. & Exp. Wheezing SpO2:: 95 - 2 liters Core Components - Initial Core Components - 30 DAYS Core Components - 60 DAYS - Visit Date of Eval: 02/08/23 Session Number:: 23 - Hypertension Hypertension Diagnosis:: Hypertension ICD-10 I10 Resting Blood Pressure:: 110/64 [employer] Hypertension Guidelines: [place] [employer] Hypertension Guidelines. Normal BP Less than 120/80. Elevated BP 120/80. Hypertension Stage 1: BP 130-139/80-89. Hypertesnion Stage 2: BP 140 or higher/90 or higher. Hypertension Crisis: BP higher than 180/120 Peak Exercise Blood Pressure:: 130/84 Change in medication: No Outcomes/Goals: Able to verbalize/achieve optimal blood pressure <130/80, Incorporates diet changes & exercise for blood pressure control by DC Interventions/plan: Instruct on optimal blood pressure, hypertension & medications, Instruct on effects of sodium, alcohol, stress, exercise &hypertension 60 day Reassessments:: Met - Exacerbation Mgmt & Airway Clearance Reassessment: Demonstrates knowledge of O2 Rx at rest, Demonstrates knowledge of O2 Rx with exercise, Using O2 as prescribed, Has home O2 as prescribed, Uses port O2 as prescribed Bronchial Hygiene Plan: Yes Pt demonstrates correctly for effective cough, Yes Pt demo correct for device, Yes Pt demo correct for improved hydration, Yes Pt demo correct for hand hygiene, Yes Pt demo correct for verbalize when to call MD - Medication Medication list reviewed:: Yes Taking medications 100% of the time:: Met Taking medications 100% of the time:: Met Medication reassessment: Yes Pt demonstrates correct technique timing for MDI, Yes Pt demonstrates correct technique timing for DPI, Yes Pt demonstrates correct technique timing for NEB, Yes Pt demonstrates correct technique timing for spacer 60-day Reassessments:: Met - Diabetes Diabetes:: No - Heart Failure Documenting weight marv: No Core Components - 90 DAYS Core Components - Final Patient Health Questionnaire 60-Day Re-eval Assessment 1. Little interest or pleasure in doing things: Not at all 2. Feeling down, depressed, or hopeless: Not at all 3. Trouble falling or staying asleep, or sleeping too much: Not at all 5. Poor appetite or overeating: Several days 6. Feeling bad about yourself -- or that you are a failure or have let yourself or your family down: Not at all 7. Trouble concentrating on things, such as reading the newspaper or watching television: Not at all 8. Moving or speaking so slowly that other people could have noticed. Or the opposite - being so fidgety or restless that you have been moving around a lot more than usual: Not at all 9. Thoughts that you would be better off , or of hurting yourself in some way: Not at all How difficult have these problems made it for you to do your work, take care of things at home, or get along with other people?: Not difficult at all Total Score: 1 Knowledge Questionaire (BCKQ) - Information Information: [place] COPD Knowledge Questionnaire (BCKQ) This questionnaire is designed to find out what you know about your lung problem. It should be completed without help form anyone else. This usually takes between 10 and 20 minutes. Your answers will help us to find out what information you need to help you to understand and manage your lung condition. [place] which you think is the correct answer. COPD Assessment Test [CAT] - Questions Never cough = 0, Cough all the time = 5: 1 No phlegm = 0, Chest full of phlegm = 5: 0 No chest tightness = 0, Chest very tight = 5: 0 No breathless w/exertion = 0, Very breathless w/exertion = 5: 1 No limitations w/activity = 0, Very limited w/activity = 5: 1 Confident leaving home = 0, Not at all confident = 5: 0 Sleep soundly = 0, Don't sleep soundly = 5: 1 Lots of energy = 0, No energy at all = 5: 2 Total CAT score:: 6 Self-Efficacy 60-Day Re-eval Assessment We would like to know how confident you are in doing certain activities. Please select your confidence level for:: Select your confidence level for the following using the scale 1-10 where 1 is not at all confident and 10 is totally confident. Your score is the average of all 6 responses. Fatigue: How confident are you that you can keep the fatigue caused by your disease from interfering with the things you want to do? Select Number: 9 Physical Discomfort or Pain: How confident are you that you can keep the physical discomfort or pain of your disease from interfering with the things you want to do? Select Number: 10 Emotional Distress: How confident are you that you can keep the emotional distress caused by your disease from interfering with the things you want to do? Select Number: 10 Other Symptoms or Health Problems: How confident are you that you can keep other symptoms or health problems from interfering with the things you want to do? Select Number: 10 Different Tasks and Activities: How confident are you that you can do the different tasks and activities needed to manage your health condition so as to reduce your need to see a doctor? Select Number: 10 Medication: How confident are you that you can do things other than just taking medication to reduce how much your illness affects your everyday life? Select Number: 10 Total Score:: 9 Nutrition Survey
[2023-02-08 07:06] VITALS: BP 110/64; BP 130/84; O2SAT 95; BMI 20.3
== END 2023-02-24 23:59 ==
LOC: PR 13:00
PROVIDERS: PCP Family Medicine
DX: J43.2 Centrilobular emphysema (principal)
CPT/HCPCS: 97150; 94626

== ENCOUNTER 2023-03-27 13:00 | Outpatient (RCR) | payer MEDICARE, SELFPAY ==
[2023-02-08 07:06] VITALS: BMI 20.3
[2023-02-25 01:25] VITALS: BP 110/64; BP 130/84
--- NOTE | 2023-03-10 06:59 | PR.ITP_ITS ---
Exercise - Initial Assessment Visit Session Number:: 27 Physician Prescribed Exercise Current METSs:: 4.0 Target HR:: 106 Target RPE 12-16:: 12-16 Current RPD:: 12-13 Resting Blood Pressure: 118/90 Maximum Exercise Blood Pressure: 128/76 Minimum SpO2 with exercise: 95 (3 liters at rest) EKG Type: NSR to sinus tach with rare PVCs PACs Nutrition/Wt Mgmt - Initial Visit Session Number:: 27 Weight Management Admit Height:: 5 ft 8 in Admit Weight:: 133 lb Admit BMI:: 20.2 Nutrition/Wt Mgmt - 30-Day Visit Date of Eval: 03/10/23 Session Number:: 27 Weight Management Height: 5 ft 8 in Weight:: 133 lb BMI: 20.2 Nutrition/Wt Mgmt - 60-Day Visit Session Number:: 27 Weight Management Weight Assessment:: BMI 21 to 25 Height: 5 ft 8 in Weight:: 133 lb BMI: 20.2 Weight Goals Progress:: Progressing (continue to encourage patient more frequent smaller meals and use of supplements (Boost, Ensure)) Nutrition/Wt Mgmt - 90-Day Visit Date of Eval: 03/10/23 Session Number:: 27 Weight Management Weight Assessment:: BMI 21 to 25 Height: 5 ft 8 in Weight:: 133 lb BMI: 20.2 Weight Goals Progress:: Progressing (continue to encourage patient more frequent smaller meals and use of supplements (Boost, Ensure)) Nutrition/Wt Mgmt - Final Visit Session Number:: 27 Weight Management Height: 5 ft 8 in Weight:: 133 lb BMI: 20.2 Psychosocial - Initial Assess Visit Session Number:: 27 Psychosocial Test Tool Used:: PHQ-9 Questionnaire Referral to Behavioral Health PS - Interventions: Yes: Attend Stress Management Classes and No: Referral to Behavioral Health if PHQ-9 score >9:, No: Referral to [facility] and No: Referral to Physician if PHQ-9 if score is 5-9: Intervention/Plan: See List Interventions/Plan:: Assess stressors,coping strategies & signs of derpression on admission, Instruct/assist pt to develop coping & personal stress Mgt strategies, Instruct patient to recognize signs & symptoms of depression and Instruct patient to recog Psychosocial - 30-Day Visit Date of Eval: 03/10/23 Session Number:: 27 Psychosocial Test Tool Used:: PHQ-9 Questionnaire Referral to Behavioral Health PS - Interventions: Yes: Attend Stress Management Classes and No: Referral to Behavioral Health if PHQ-9 score >9:, No: Referral to [facility] and No: Referral to Physician if PHQ-9 if score is 5-9: Plan Interventions/Plan:: Assess stressors,coping strategies & signs of derpression on admission, Instruct/assist pt to develop coping & personal stress Mgt strategies, Instruct patient to recognize signs & symptoms of depression and Instruct patient to recog Psychosocial - 60-Day Visit Session Number:: 27 Psychosocial Test Tool Used:: PHQ-9 Questionnaire Referral to Behavioral Health PS - Interventions: Yes: Attend Stress Management Classes and No: Referral to Behavioral Health if PHQ-9 score >9:, No: Referral to [facility] and No: Referral to Physician if PHQ-9 if score is 5-9: Plan Interventions/Plan:: Assess stressors,coping strategies & signs of derpression on admission, Instruct/assist pt to develop coping & personal stress Mgt strategies, Instruct patient to recognize signs & symptoms of depression and Instruct patient to recog Psychosocial - 90-Day Visit Date of Eval: 03/10/23 Session Number:: 27 Psychosocial Test Tool Used:: PHQ-9 Questionnaire Referral to Behavioral Health PS - Interventions: Yes: Attend Stress Management Classes and No: Referral to Behavioral Health if PHQ-9 score >9:, No: Referral to [facility] and No: Referral to Physician if PHQ-9 if score is 5-9: Plan Interventions/Plan:: Assess stressors,coping strategies & signs of derpression on admission, Instruct/assist pt to develop coping & personal stress Mgt strategies, Instruct patient to recognize signs & symptoms of depression and Instruct patient to recog Psychosocial - Final Assess Visit Session Number:: 27 Psychosocial Test Tool Used:: PHQ-9 Questionnaire Referral to Behavioral Health PS - Interventions: Yes: Attend Stress Management Classes and No: Referral to Behavioral Health if PHQ-9 score >9:, No: Referral to [facility] and No: Referral to Physician if PHQ-9 if score is 5-9: Plan Interventions/Plan:: Assess stressors,coping strategies & signs of derpression on admission, Instruct/assist pt to develop coping & personal stress Mgt strategies, Instruct patient to recognize signs & symptoms of depression and Instruct patient to recog Oxygen & Oxygen Titration Init Visit Session Number:: 27 Initial Assessment SpO2:: 95 (3 liters at rest) Oxygen & Oxygen Titration 30D Visit Date of Eval: 03/10/23 Session Number:: 27 Reassessment Breath Sounds:: Diminished and Insp. & Exp. Wheezing SpO2:: 95 (3 liters at rest) Oxygen & Oxygen Titration 60D Visit Date of Eval: 03/10/23 Session Number:: 27 Reassessment Breath Sounds:: Diminished and Insp. & Exp. Wheezing SpO2:: 95 (3 liters at rest) Oxygen & Oxygen Titration 90D Visit Date of Eval: 03/10/23 Session Number:: 27 Reassessment Oxygen & Oxygen Titration 90 days: Continuous Home Use, Oxygen w/activity and Oxygen at HS Breath Sounds:: Diminished and Insp. & Exp. Wheezing SpO2:: 95 (3 liters at rest) Oxygen & Oxygen Titration BERTHA Visit Date of Eval: 03/10/23 Session Number:: 27 Reassessment Breath Sounds:: Diminished and Insp. & Exp. Wheezing SpO2:: 95 (3 liters at rest) Core Components - Initial Visit Session Number:: 27 Hypertension Hypertension Diagnosis:: Hypertension ICD-10 I10 BP: 118/70 [place] [employer] Hypertension Guidelines Blood Pressure: 128/76 Outcomes/Goals: Able to verbalize/achieve optimal blood pressure <130/80 and Incorporates diet changes & exercise for blood pressure control by DC Tobacco - Initial Assessment Tobacco Program Goals Tobacco Use: Non-smoker Diabetes Diabetes:: No Core Components - 30 DAYS Visit Date of Eval: 03/10/23 Session Number:: 27 Hypertension Hypertension Diagnosis:: Hypertension ICD-10 I10 Resting Blood Pressure:: 118/70 [place] [employer] Hypertension Guidelines Peak Exercise Blood Pressure:: 128/76 Outcomes/Goals: Able to verbalize/achieve optimal blood pressure <130/80 and Incorporates diet changes & exercise for blood pressure control by DC Interventions/plan: Instruct on optimal blood pressure, hypertension & medications and Instruct on effects of sodium, alcohol, stress, exercise & hypertension 30 day Reassessments:: Met Reassessment Notes & Comments:: patient has had periods of lower BPs 92/44 and encouraged more fluids daily to prevent dehydration and increase BP Tobacco - 30-Day Tobacco Program Goals Tobacco Use: Non-smoker Exacerbation Mgmt & Airway Clearance Bronchial Hygiene Plan: Yes: Pt demonstrates correctly for effective cough, Yes: Pt demo correct for device, Yes: Pt demo correct for improved hydration, Yes: Pt demo correct for hand hygiene and Yes: Pt demo correct for verbalize when to call MD Medication Medication reassessment: Yes: Pt demonstrates correct technique timing for MDI, Yes: Pt demonstrates correct technique timing for DPI, Yes: Pt demonstrates correct technique timing for NEB and Yes: Pt demonstrates correct technique casa ing for spacer Diabetes Diabetes:: No Core Components - 60 DAYS Visit Session Number:: 27 Hypertension Hypertension Diagnosis:: Hypertension ICD-10 I10 Resting Blood Pressure:: 118/70 [place] [employer] Hypertension Guidelines Peak Exercise Blood Pressure:: 128/76 Outcomes/Goals: Able to verbalize/achieve optimal blood pressure <130/80 and Incorporates diet changes & exercise for blood pressure control by DC Interventions/plan: Instruct on optimal blood pressure, hypertension & medications and Instruct on effects of sodium, alcohol, stress, exercise &hypertension 60 day Reassessments:: Met Reassessment Notes & Comments:: patient has had periods of lower BPs 92/44 and encouraged more fluids daily to prevent dehydration and increase BP Tobacco - 60-Day Tobacco Program Goals Tobacco Use: Non-smoker Exacerbation Mgmt & Airway Clearance Bronchial Hygiene Plan: Yes: Pt demonstrates correctly for effective cough, Yes: Pt demo correct for device, Yes: Pt demo correct for improved hydration, Yes: Pt demo correct for hand hygiene and Yes: Pt demo correct for verbalize when to call MD Medication Medication reassessment: Yes: Pt demonstrates correct technique timing for MDI, Yes: Pt demonstrates correct technique timing for DPI, Yes: Pt demonstrates correct technique timing for NEB and Yes: Pt demonstrates correct technique timing for spacer Diabetes Diabetes:: No Core Components - 90 DAYS Visit Date of Eval: 03/10/23 Session Number:: 27 Hypertension Hypertension Diagnosis:: Hypertension ICD-10 I10 Resting Blood Pressure:: 118/70 [place] [employer] Hypertension Guidelines Peak Exercise Blood Pressure:: 128/76 Outcomes/Goals: Able to verbalize/achieve optimal blood pressure <130/80 and Incorporates diet changes & exercise for blood pressure control by DC Interventions/plan: Instruct on optimal blood pressure, hypertension & medications and Instruct on effects of sodium, alcohol, stress, exercise &hypertension 90 day Reassessments:: Met Reassessment Notes & Comments:: patient has had periods of lower BPs 92/44 and encouraged more fluids daily to prevent dehydration and increase BP Tobacco - 90-Day Tobacco Program Goals Tobacco Use: Non-smoker Exacerbation Mgmt & Airway Clearance Reassessment: Demonstrates knowledge of O2 Rx at rest, Demonstrates knowledge of O2 Rx with exercise and Using O2 as prescribed Bronchial Hygiene Plan: Yes: Pt demonstrates correctly for effective cough, Yes: Pt demo correct for device, Yes: Pt demo correct for improved hydration, Yes: Pt demo correct for hand hygiene and Yes: Pt demo correct for verbalize when to call MD Medication Medication list reviewed:: Yes Taking medications 100% of the time:: Met Medication reassessment: Yes: Pt demonstrates correct technique timing for MDI, Yes: Pt demonstrates correct technique timing for DPI, Yes: Pt demonstrates correct technique timing for NEB and Yes: Pt demonstrates correct technique timing for spacer Diabetes Diabetes:: No Heart Failure Documenting weight daily: No Core Components - Final Visit Session Number:: 27 Hypertension Hypertension Diagnosis:: Hypertension ICD-10 I10 Resting Blood Pressure:: 118/70 [place] [employer] Hypertension Guidelines Peak Exercise Blood Pressure:: 128/76 Outcomes/Goals: Able to verbalize/achieve optimal blood pressure <130/80 and Incorporates diet changes & exercise for blood pressure control by DC Tobacco - Final Tobacco Program Goals Tobacco Use: Non-smoker Exacerbation Mgmt & Airway Clearance Bronchial Hygiene Plan: Yes: Pt demonstrates correctly for effective cough, Yes: Pt demo correct for device, Yes: Pt demo correct for improved hydration, Yes: Pt demo correct for hand hygiene and Yes: Pt demo correct for verbalize when to call MD Medication Medication reassessment: Yes: Pt demonstrates correct technique timing for MDI, Yes: Pt demonstrates correct technique timing for DPI, Yes: Pt demonstrates correct technique timing for NEB and Yes: Pt demonstrates correct technique timing for spacer Diabetes Diabetes:: No Patient Health Questionnaire PHQ-9 Screening 90-Day Re-eval Assessment: 1. Little interest or pleasure in doing things: Not at all 2. Feeling down, depressed, or hopeless: Not at all 3. Trouble falling or staying asleep, or sleeping too much: Not at all 4. Feeling tired or having little energy: Several days 5. Poor appetite or overeating: Not at all 6. Feeling bad about yourself -- or that you are a failure or have let yourself or your family down: Not at all 7. Trouble concentrating on things, such as reading the newspaper or watching television: Not at all 8. Moving or speaking so slowly that other people could have noticed. Or the opposite - being so fidgety or restless that you have been moving around a lot more than usual: Not at all 9. Thoughts that you would be better off , or of hurting yourself in some way: Not at all How difficult have these problems made it for you to do your work, take care of things at home, or get along with other people?: Not difficult at all Total Score: 1 Knowledge Questionaire (BCKQ) Information Information: [place] COPD Knowledge Questionnaire (BCKQ) This questionnaire is designed to find out what you know about your lung problem. It should be completed without help form anyone else. This usually takes between 10 and 20 minutes. Your answers will help us to find out what information you need to help you to understand and manage your lung condition. [place] the [place] which you think is the correct answer. COPD Assessment Test [CAT] Questions Never cough = 0, Cough all the time = 5: 2 No phlegm = 0, Chest full of phlegm = 5: 0 No chest tightness = 0, Chest very tight = 5: 0 No breathless w/exertion = 0, Very breathless w/exertion = 5: 1 No limitations w/activity = 0, Very limited w/activity = 5: 1 Confident leaving home = 0, Not at all confident = 5: 0 Sleep soundly = 0, Don't sleep soundly = 5: 0 Lots of energy = 0, No energy at all = 5: 1 Total CAT score:: 5 Self-Efficacy 6-Item Scale 90-Day Re-eval Assessment: We would like to know how confident you are in doing certain activities. Please select your confidence level for: Fatigue Select Number: 10 Physical Discomfort or Pain Select Number: 10 Emotional Distress Select Number: 9 Other Symptoms or Health Problems Select Number: 10 Different Tasks and Activities Select Number: 10 Medication Select Number: 10 Total Score:: 9 Nutrition Survey Nutrition Survey Instructions Scoring Instructions
[2023-03-10 07:11] VITALS: BP 118/70; BP 118/90; BP 128/76; O2SAT 95; BMI 20.2
== END 2023-03-27 23:59 ==
LOC: PR 13:00
PROVIDERS: PCP Family Medicine
DX: J43.2 Centrilobular emphysema (principal)
CPT/HCPCS: 97150; 94626

== ENCOUNTER 2023-04-03 13:00 | Outpatient (RCR) | payer MEDICARE, SELFPAY ==
[2023-03-10 07:11] VITALS: BMI 20.2
[2023-03-28 00:19] VITALS: BP 118/70; BP 118/90; BP 128/76; BMI 20.2
== END 2023-04-27 23:59 ==
LOC: PR 13:00
PROVIDERS: PCP Family Medicine
DX: J43.9 Emphysema, unspecified (principal)
CPT/HCPCS: 97150; 94626

== ENCOUNTER 2024-01-06 14:13 | Emergency (ER) | payer MEDICARE, SELFPAY ==
[2023-03-10 07:11] VITALS: BMI 20.2
[2024-01-06 14:13] VITALS: BP 118/83; PULSE 121; RESP 20; TEMP 36.2; O2SAT 94; BMI 20.5
[2024-01-06 14:22] VITALS: O2SAT 95
[2024-01-06 14:39] VITALS: O2SAT 96
--- NOTE | 2024-01-06 14:40 | EDS_ITS ---
HPI History of Present Illness Chief Complaint: Shortness of Breath Informant: patient and family Onset/Context/Timing Onset: Days Context: gradual Timing: Continuous Current Severity: Mild Maximum Severity: Mild Worsened by: Nothing Relieved by: Nothing Associated Symptoms cough; Negative for fever or sore throat Chest Pain: Positive for None Narrative Narrative: 78-year-old male history of COPD and asthma. Prior pneumothorax a year and a half ago requiring a chest tube. States been more short of breath last several days. No chest pain. No history of DVT or PE. No hemoptysis. No leg pain or swelling. No recent hospitalization or surgery. He has had a nonproductive cough. Denies fever. Patient is on oxygen at home 2 L at night. He has been wearing it during the day now also. PE Risk Factors: Negative for Cancer, OCP + Smoking + > 35, Prior DVT or PE, Recent immobilization, Recent surgery or Recent travel Prior similar symptoms: Yes Recent Illness/Hospitalization: No PFSH PFSH Medical History Asthma exacerbation in COPD COPD (chronic obstructive pulmonary disease) Glaucoma High cholesterol Pneumothorax Prostate CA Home Medications artificial tears(hypromellose) 0.3 % eye drops 1 drp EACH EYE BID DRY EYE 08/25/22 [History Last Taken 01/06/24] aspirin 81 mg tablet,delayed release 81 mg PO DAILY HEART HEALTH 08/25/22 [History Last Taken 01/05/24] lovastatin 40 mg tablet 40 mg PO DAILY CHOLESTEROL 08/25/22 [History Last Taken 01/05/24] timolol maleate 0.5 % eye drops 1 drp EACH EYE BID GLUCOMA 08/25/22 [History Last Taken 01/05/24] acetaminophen 325 mg tablet (Tylenol) 1,000 mg PO Q6H PRN Pain 12/13/22 [History Last Taken Unknown] albuterol sulfate 90 mcg/actuation aerosol inhaler 2 puff inhalation Q6H PRN Dyspnea 12/13/22 [History Last Taken 01/05/24] docusate sodium 100 mg capsule (Colace) 100 mg PO DAILY 12/13/22 [History Last Taken 01/05/24] fluticasone fur. 200 mcg-umeclid 62.5 mcg-vilant 25 mcg inhalat.powder (Trelegy Ellipta) 1 inh inhalation DAILY 12/13/22 [History Last Taken 01/05/24] fluticasone propionate 50 mcg/actuation nasal spray,suspension 1 spray intranasal DAILY 12/13/22 [History Last Taken 01/05/24] guaifenesin 600 mg tablet, extended release 12 hr (Mucinex) 600 mg PO BID 12/13/22 [History Last Taken 01/05/24] azithromycin 250 mg tablet (Zithromax) 250 mg PO DAILY 4 days #4 tabs 01/06/24 [Rx Last Taken Unknown] prednisone 20 mg tablet 40 mg (2 x 20 mg) PO DAILY 7 days #14 tabs 01/06/24 [Rx Last Taken Unknown] Allergy/AdvReac Type Severity Reaction Status Date / Time No Known Allergies Allergy Verified 01/06/24 14:15 Family History Other COPD (chronic obstructive pulmonary disease) Heart disease Hypertension Surgical History H/O radical prostatectomy Social History Smoking Status: Former smoker ROS ROS ED ROS Narrative Nonproductive cough. Shortness of breath. No chest pain or fever. Review of Systems ROS Unobtainable: Denies due to encephalopathy Constitutional Constitutional ED: Denies chills or fever(s) Eyes Eyes: Denies blurry vision ENT ENT ED: Denies ear pain, rhinorrhea or sore throat Cardiovascular Cardiovascular: Denies chest pain, palpitations or racing heartbeat Respiratory/Chest Respiratory/Chest: Reports cough and dyspnea; Denies sputum Gastrointestinal Gastrointestinal: Denies abdominal pain, constipation, diarrhea, melena, nausea or vomiting Genitourinary Genitourinary ED: Denies dysuria or hematuria Musculoskeletal Musculoskeletal: Denies arthralgias, back pain, myalgias or neck pain Integumentary Denies abscess or Abrasions Neurologic Neurologic: Denies headache(s) Psychiatric Psychiatric: Denies anxiety Endocrine Endocrinology: Denies cold intolerance Hematologic/Lymphatic Hematologic/Lymphatic: Denies easy bleeding, easy bruising or lymphadenopathy Allergic/Immunologic Allergic/Immunologic ED: Denies mouth swelling, tongue swelling or urticaria EXAM Physical Exam Narrative Exam Narrative: 69-year-old male no acute distress vital signs stable afebrile. Pulse ox 94% on room air. Daughter at bedside. H EENT exam unremarkable. Mytrex membranes. Neck nontender no JVD. No lymphadenopathy. Lungs coarse breath sounds bilaterally with rhonchi. No rales. No excessive wheezing. Equal and symmetrical. Chest wall nontender. No crepitance. No subcu air. Heart tachycardic rate about 120 no murmur. Abdomen soft nontender. Moving all 4 extremities. Calves are nontender without edema or cords. 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 Dorsi plantarflexion intact. Neurologically is awake and alert no focal motor deficits. Const Vital Signs: 01/06/24 14:13 01/06/24 14:22 01/06/24 14:51 Temperature 97.2 F L Temperature Source Temporal Pulse Rate 121 H 109 H Respiratory Rate 20 H 16 Respiratory Effort Short of Breath Respiratory Depth Normal Respiratory Pattern Normal Blood Pressure 118/83 H Blood Pressure Mean 94 Pulse Ox 94 Oxygen Delivery Method Nasal Cannula Nasal Cannula Oxygen Flow Rate (L/min) 2 2 Positive well nourished and well developed; Negative for obese, cachectic, contractures or unkempt General Appearance ED: well developed and NAD; Negative for unkempt, cachectic, contractures or pallor Nutritional Appearance: Negative for cachectic or obese HEENT Reports moist mucous membranes; Denies dry mucous membranes atraumatic; Negative for trauma or tenderness Mouth ED: No dry mucous membranes Mouth: No dry mucous membranes Eyes PERRL and EOMs intact bilaterally General Eye ED: Negative for pale conjunctiva, scleral icterus or other Neck no lymphadenopathy, supple, no meningeal signs and no JVD General: Negative for tenderness Lymph Lymphatic: Negative for other Chest Wall Chest: Negative for other Resp normal respiratory effort and No clear to auscultation bilaterally Effort and Inspection: Negative for pain with movement Auscultation: rhonchi; Negative for rales, wheezes or diminished lung sounds Cardio regular rhythm, S1 normal heart sound, S2 normal heart sound and no murmurs; Negative for regular rate Rate: tachycardic; Negative for bradycardia GI non-tender, non-distended and no masses Inspection: Negative for other Auscultation: normoactive bowel sounds Palpation: soft; Negative for tender, guarding or rebound tenderness present Back/Spine no CVA tenderness and normal to inspection General Back: Negative for CVA tenderness or tenderness Extremity normal to inspection General Extremety ED: Negative for edema or tenderness General Extremity: Negative for edema Neuro oriented x3 and CN's II-XII intact bilaterally Sensorium / Orientation: alert, oriented to person and oriented to place; Negative for oriented to time, orientation impaired, confused, lethargic or stuporous Speech: speech normal Motor Exam: strength 5/5 throughout; Negative for general weakness or strength abnormal Psych mental status grossly normal Appearance: Negative for unkempt Attitude: No agitated and No other Mood & Affect: Negative for depressed Thought Process: normal thought process Skin no wounds and skin turgor normal General Skin Exam: Negative for jaundice or pallor Lesions: no lesions Rashes: no rashes Trauma: Negative for abrasion or laceration MDM MDM MDM Narrative Medical decision making narrative: 78-year-old male with shortness of breath history of COPD viral pneumonia versus COPD flare versus cardiac etiology. Versus even a pneumothorax which she has had before in the past. Chest x-ray and cardiac workup. Solu-Medrol IV with DuoNeb and albuterol aerosols. Repeat exam 415 patient is doing much better. He was treated with aerosols and Solu-Medrol. He said his breathing is improved. Patient be discharged home. He has a new cough he is not producing any sputum he placed on Zithromax first dose given here. Prednisone 40 mg a day for the next 7 days. 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 We did discuss using his inhaler at home and possibly discussed with his primary care physician about getting a nebulizer. History & Record Review Discussion w/independent historian: Patient and Family Additional record(s) reviewed:: Prior inpatient record, Prior outpatient record, Prior ED visit and Prior labs Lab Data Attestation: I reviewed the patient's lab results. Lab results narrative: CBC shows a white count of 9. H&H of 14 and 45. Platelets are slightly low at 143. History of thrombocytopenia. Chemistry shows sodium 132. Gap 6. Normal BUN and creatinine. Glucose 100. Troponin 6. Labs: Laboratory Results - last 24 hr 01/06/24 15:15 WBC 9.9 RBC 4.55 L Hgb 14.5 Hct 45.0 MCV 98.9 H MCH 31.9 MCHC 32.2 RDW Std Deviation 50.1 H RDW Coeff of Samira 13.7 Plt Count 143 L MPV 9.3 Immature Gran % (Auto) 0.700 Neut % (Auto) 82.9 H Lymph % (Auto) 7.8 L [place] % (Auto) 7.5 Eos % (Auto) 0.7 Baso % (Auto) 0.4 Absolute Neuts (auto) 8.2 H Absolute Lymphs (auto) 0.77 L Nucleated RBC % 0 Sodium 132 L Potassium 4.2 Chloride 98 Carbon Dioxide 28.0 Anion Gap 6 BUN 11 Creatinine 0.72 Estim Creat Clear Calc 64.64 Est GFR (MDRD) Af Amer 136 Est GFR (MDRD) Non-Af 113 BUN/Creatinine Ratio 15.4 Glucose 100 Calcium 9.3 Troponin I High Sens 6 Radiography Chest X-Ray - ED: 2 View, Read by ED Physician, Read by Radiologist, Heart, Lungs, Mediastinum, Bony Structures, No Acute Disease and Chronic Changes Diagnostic Testing: Clinical Impression(s) from Imaging Studies Chest X-Ray 01/06/24 15:40 IMPRESSION: Hyperaeration. Electronically Signed: Obinna Ross DO at 16:04 EDT Reading Location ID and State: [facility] / [place] Tel [phone], Service support , Chest x-ray, 2 view, interpreted by myself and the radiologist shows chronic changes no acute pneumonia. No effusions. No pneumothorax seen. Rhythm Strip Rhythm Strip: Sinus Tach Rate: 111 Ectopy: None EKG Initial EKG: Attestation: I personally reviewed and interpreted this EKG as follows: Interpretation: Sinus Rhythm, No Acute Injury Pattern and Sinus Tachycardia Comments: Sinus tachycardia rate of 111. No acute signs of ND, ischemia or dysrhythmia. Discharge Plan Triage Chief Complaint: Shortness of Breath ED Provider: Amadou Wadsworth Dx/Rx/DC Orders Clinical Impression: History of pneumothorax, COPD exacerbation Instructions: ED COPD Flare Prescriptions: New azithromycin [Zithromax] 250 mg tablet 250 mg PO DAILY 4 Days Qty: 4 0RF Rx Instructions: start on day 2 of therapy prednisone 20 mg tablet 40 mg PO DAILY 7 Days Qty: 14 0RF No Action lovastatin 40 mg tablet 40 mg PO DAILY aspirin 81 mg Tablet,Delayed Release (Dr/Ec) 81 mg PO DAILY timolol maleate 0.5 % drops 1 drp EACH EYE BID GenTeal (hypromellose) 0.3 % Drops 1 drp EACH EYE BID acetaminophen [Tylenol] 325 mg Tablet 1,000 mg PO Q6H PRN (Reason: Pain) docusate sodium [Colace] 100 mg Capsule 100 mg PO DAILY albuterol sulfate 90 mcg/actuation Hfa Aerosol Inhaler 2 puff INHALATION Q6H PRN (Reason: Dyspnea) fluticasone propionate 50 mcg/actuation [place],Suspension 1 spray INTRANASAL DAILY Rx Instructions: administer into each nostril guaifenesin [Mucinex] 600 mg Tablet Extended Release 12hr 600 mg PO BID Trelegy Ellipta 200-62.5-25 mcg Blister With Device 1 inh INHALATION DAILY Primary Care Provider: Rosendo Lopez Referrals: Rosendo Lopez MD [Primary Care Provider] - 3-5 Days Activity Restrictions/Additional Instructions: Exacerbation of your COPD. Chest x-ray shows no obvious pneumonia or collapsed lung. Use your inhaler as needed. Talk to your primary care physician and/or java scala developer about possibly getting a nebulizer for home we will give yourself aerosol treatments with that. The antibiotic Zithromax 1 pill a day starting tomorrow. That will be for 4 more days. Prednisone the steroid starting tomorrow for 7 days. Follow-up your primary care physician to ensure you are improving return if worse. Disposition Disposition: Home, Self Care
[2024-01-06] MEDS: Ipratropium/Albuterol Sulfate 3 ML AMPUL.NEB INHALATION (14:45)
[2024-01-06] MEDS: Albuterol 2.5 MG/3 ML VIAL.NEB. INHALATION (14:45)
[2024-01-06 14:51] VITALS: PULSE 109; RESP 16
[2024-01-06] MEDS: MethylPREDNISolone 125 MG/2 ML Vial IV (15:12)
[2024-01-06 15:29] LABS: Absolute Lymphocyte Count 0.77 X10^3/uL (0.83-4.51); Absolute Neutrophil Count 8.2 X10^3/uL (2.0-7.7); Basophil# 0.04 X10^3/uL; Basophil% 0.4 % (0-1); Eosinophil# 0.07 X10^3/uL; Eosinophils% 0.7 % (0-5); Hemoglobin 14.5 g/dL (13.0-16.5); Lymphocyte # 0.77 X10^3/ul (0.83-4.51); Lymphocyte % 7.8 % (19-41); Mean Corp Hgb Conc 32.2 g/dL (32-36); Mean Corpuscular Hgb 31.9 pg (27.0-32.0); Mean Corpuscular Volume 98.9 fL (80-94); Mean Platelet Vol. 9.3 fl (6.2-12.0); Monocyte# 0.74 X10^3/uL; Monocyte% 7.5 % (0-10); NRBC Flagged by Analyzer 0 % (0-5); Neutrophil # 8.23 X10^3/uL (2.7-7.7); Neutrophil % 82.9 % (47-70); Platelet Count 143 K/mm3 (150-450); RBC Distribution Width CV 13.7 % (11.6-14.6); RBC Distribution Width SD 50.1 fl (35.1-43.9); Red Blood Count 4.55 M/mm3 (4.6-6.2); White Blood Count 9.9 K/mm3 (4.4-11.0)
--- NOTE | 2024-01-06 15:40 | RAD_ITS ---
INDICATION: dyspnea EXAMINATION/TECHNIQUE: X-RAY - XR Chest 2 Views COMPARISON: FINDINGS: LINES/DEVICES: None. LUNGS: No consolidation, edema or effusion. Hyperaeration. Probable old blebs at the lung bases. No pneumothorax. MEDIASTINUM AND CARDIOVASCULAR STRUCTURES: Cardiac silhouette not enlarged. Central airways and mediastinal contour are unremarkable. BONES AND SOFT TISSUES: Degenerative vertebral changes. RAD/Chest PA and Lateral IMPRESSION: Hyperaeration. Electronically Signed: Obinna Ross DO at 16:04 EDT ,
[2024-01-06 15:45] LABS: Anion Gap 6 (5-15); BUN 11 mg/dL (7-18); BUN/Creat Ratio 15.4 RATIO (10-20); Calcium,Total 9.3 mg/dL (8.5-10.1); Chloride 98 mmol/L (98-107); Creatinine, Serum 0.72 mg/dL (0.70-1.30); EST Glomerular Filtration Rate 113 mL/min (>60); Est Glom Filt Rate - Afr Amer 136 mL/min (>60); Estimated Creatinine Clearance 64.64 ml/min; Glucose 100 mg/dL (74-106); Potassium 4.2 mmol/L (3.5-5.1); Sodium Level 132 mmol/L (136-145); Troponin-I HS 6 pg/mL (3.0-78.0)
[2024-01-06 16:13] VITALS: BP 114/77; PULSE 107; RESP 21; TEMP 36.6; O2SAT 95
[2024-01-06] MEDS: Azithromycin 250 MG Tablet 500 MG PO (16:58)
[2024-01-06 16:59] VITALS: BP 110/70; PULSE 112; RESP 20; TEMP 36.7; O2SAT 94
== END 2024-01-06 17:01 | disposition home or self-care (01) ==
PROVIDERS: Emergency Provider Emergency Medicine; PCP Family Medicine; Visit Provider Emergency Medicine
DX: J44.1 Chronic obstructive pulmonary disease with (acute) exacerbation (principal); Z87.891 Personal history of nicotine dependence; E78.00 Pure hypercholesterolemia, unspecified; Z85.46 Personal history of malignant neoplasm of prostate; Z79.82 Long term (current) use of aspirin; Z79.899 Other long term (current) drug therapy; Z79.51 Long term (current) use of inhaled steroids; Z90.79 Acquired absence of other genital organ(s); Z87.09 Personal history of other diseases of the respiratory system
CPT/HCPCS: 71046; 80048; 84484; 85025; 87631; 93005; 94640; 96374; 99284; A4216

== ENCOUNTER 2024-10-14 15:23 | Inpatient (IN) | payer MEDICARE, SELFPAY ==
[2023-03-10 07:11] VITALS: BMI 20.2
[2024-10-14] VITALS (21 sets, daily range): BP systolic 105–161; BP diastolic 53–95; PULSE 81–109; RESP 10–21; TEMP 36.6–37.1; O2SAT 79–100; BMI 19.8; BMI 18.6
--- NOTE | 2024-10-14 15:57 | CT_ITS ---
PROCEDURE: ABDOMEN/PELVIS WITH CONTRAST REASON FOR EXAM: Painless jaundice, weight loss concern pancreatic cancer TECHNIQUE: Abdomen and pelvis CT with intravenous contrast. COMPARISON: None. FINDINGS: Lung bases: Clear Liver: Diffuse fatty infiltration. There are multiple hypodensities in the bilateral lobes with the largest measuring 2.8 cm. Gallbladder: Gallstone. Spleen: Unremarkable. Pancreas: Dilated pancreatic duct. No suspicious masses. Adrenals: Unremarkable. Kidneys: Unremarkable. Bowel: Significant amount of stool noted throughout the colon Appendix: Normal. Lymph nodes: No suspicious lymph node enlargement. Vasculature: Mild diffuse atherosclerotic calcifications are noted. 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 Peritoneum / Retroperitoneum: No ascites. No free air. Bones: Unremarkable. CT/Abdomen/Pelvis WITH Contrast IMPRESSION: 1. Dilated pancreatic duct with no suspicious mass. 2. Hepatic steatosis with hepatic cysts 3. Significant amount of stool in the colon. Correlate with constipation. 4. Celiac artery pseudoaneurysm 5. Cholelithiasis One or more dose reduction techniques were used (e.g., Automated exposure contr ol, adjustment of the mA and/or kV according to patient size, use of iterative reconstruction technique). Reading Location: [facility]
--- NOTE | 2024-10-14 15:58 | EX.ED.DYSGE1 ---
HPI History of Present Illness Chief Complaint: Shortness of Breath Detail of Chief Complaint: Fatigue, weight loss, decreased appetite history of COPD Informant: patient and family Onset/Context/Timing Onset: Weeks Context: Gradual Onset Timing: Continuous Quality: Detailed HPI narrative Location: Hepatobiliary Current Severity: Moderate Maximum Severity: Moderate Worsened by: Nothing Relieved by: Nothing Associated Symptoms Associated Symptoms: HPI narrative Narrative Narrative: Patient is an 79-year-old male. He is a former smoker. He has not smoked in 15 years. He was a former drinker and quit 20 years ago. He presents because of fatigue, weight loss, no appetite and increased shortness of breath per triage. He denied this to me. Patient has lost 9 pounds in 3 months. He has no appetite. He has no energy. He does wear oxygen at night because concerned that he may have sleep apnea. He apparently never underwent formal testing. Patient endorses dark-colored urine for 3 to 4 weeks. Patient denies abdominal pain or back pain. He has had chronic left hip pain and it was felt to be due to bursitis and placed on NSAIDs. No images were obtained. He denies fever or chills. He does endorse weight loss and night sweats. He denies headache, visual, ocular auditory symptoms. He denies chest pain, increased shortness of breath from baseline, orthopnea or PND. He does endorse swelling of his legs. Patient does endorse change in caliber of his stool. He has not noticed change in consistency or color. Recent Illness/Hospitalization: No PFSH PFS Medical History Pneumothorax Asthma exacerbation in COPD Prostate CA COPD (chronic obstructive pulmonary disease) Glaucoma High cholesterol Home Medications ?Medication ?Instructions ?Recorded ?Last Taken ?Type artificial tears(hypromellose) 0.3 1 drp EACH EYE BID DRY EYE 08/25/22 10/13/24 History % eye drops aspirin 81 mg tablet,delayed 81 mg PO DAILY HEART HEALTH 08/25/22 10/13/24 History release lovastatin 40 mg tablet 40 mg PO DAILY CHOLESTEROL 08/25/22 10/13/24 History timolol maleate 0.5 % eye drops 1 drp EACH EYE BID GLUCOMA 08/25/22 10/13/24 History albuterol sulfate 90 mcg/actuation 2 puff inhalation Q6H PRN Dyspnea 12/13/22 01/05/24 History aerosol inhaler docusate sodium 100 mg capsule 100 mg PO QHS 12/13/22 10/13/24 History (Colace) fluticasone fur. 200 mcg-umeclid 1 inh inhalation 212912/13/22 10/13/24 History 62.5 mcg-vilant 25 mcg inhalat.powder (Trelegy Ellipta) fluticasone propionate 50 1 spray intranasal DAILY PRN nasal 12/13/22 01/05/24 History mcg/actuation nasal congestion spray,suspension guaifenesin 600 mg tablet, 600 mg PO BID 12/13/22 10/13/24 History extended release 12 hr (Mucinex) acetaminophen 500 mg tablet 500 - 1,000 mg PO Q6H PRN pain 10/14/24 Unknown History loratadine 10 mg tablet (Allergy 10 mg PO DAILY 10/14/24 10/13/24 History Relief (loratadine)) vitamins A,C,N-yykl-urrwvd 2,148 2 tab PO BID 10/14/24 10/13/24 History mcg-113 mg-45 mg-17.4 mg tablet (Eye Multivitamin) Allergy/AdvReac Type Severity Reaction Status Date / Time propofol Allergy Severe Other Verified 10/14/24 15:24 Family History Other COPD (chronic obstructive pulmonary disease) Heart disease Hypertension Surgical History H/O radical prostatectomy Social History household members: family Smoking Status: Former smoker alcohol intake: former ROS ROS ED Constitutional Constitutional ED: Reports sweats and weight loss; Denies chills, fever(s) or subjective Eyes Eyes: Denies blurry vision or change in vision ENT ENT ED: Denies ear pain, rhinorrhea or sore throat Cardiovascular Cardiovascular: Denies chest pain, orthopnea, palpitations or paroxysmal nocturnal dyspnea Respiratory/Chest Respiratory/Chest: Reports dyspnea; Denies cough, dyspnea on exertion, orthopnea, paroxysmal nocturnal dyspnea or sputum Gastrointestinal Gastrointestinal: Denies abdominal pain, constipation, diarrhea, melena or vomiting Genitourinary Genitourinary ED: Reports other Details: Patient endorses dark-colored urine. ; Denies dysuria, hematuria or urinary frequency Musculoskeletal Musculoskeletal: Denies arthralgias, back pain or myalgias Integumentary Denies rash Neurologic Neurologic: Reports weakness; Denies headache(s) or paresthesias Psychiatric Psychiatric: Reports depression Endocrine Endocrinology: Denies cold intolerance or heat intolerance Hematologic/Lymphatic Hematologic/Lymphatic: Reports systems reviewed and no addt'l complaints, except as documented EXAM Physical Exam Narrative Exam Narrative: Vital signs are remarkable for sinus tachycardia. Const Vital Signs: 10/14/24 15:24 10/14/24 15:33 10/14/24 15:37 Temperature 97.9 F 97.9 F Temperature Source Oral Oral Pulse Rate 107 H 108 H Respiratory Rate 20 H 21 H Respiratory Effort Blood Pressure 105/67 110/53 L Blood Pressure Mean 79 72 Blood Pressure Source Blood Pressure Position Blood Pressure Location Pulse Ox 79 100 84 Oxygen Delivery Method Nasal Cannula Nasal Cannula Nasal Cannula Oxygen Flow Rate (L/min) 2 6 4 10/14/24 16:10 10/14/24 16:23 10/14/24 16:33 Temperature 97.9 F Temperature Source Oral Pulse Rate 103 H Respiratory Rate 17 Respiratory Effort Short of Breath Blood Pressure 131/89 H 152/81 H Blood Pressure Mean 103 104 Blood Pressure Source Blood Pressure Position Blood Pressure Location Pulse Ox 100 100 Oxygen Delivery Method Nasal Cannula Nasal Cannula Oxygen Flow Rate (L/min) 4 4 10/14/24 16:52 10/14/24 16:52 10/14/24 18:00 Temperature 97.9 F 98.8 F Temperature Source Oral Oral Pulse Rate 106 H 82 Respiratory Rate 17 16 Respiratory Effort Blood Pressure 138/75 H 138/75 H 161/75 H Blood Pressure Mean 96 96 103 Blood Pressure Source Blood Pressure Position Blood Pressure Location Pulse Ox 100 100 Oxygen Delivery Method Nasal Cannula Room Air Oxygen Flow Rate (L/min) 4 10/14/24 18:17 10/14/24 18:32 Temperature 98.3 F 98.8 F Temperature Source Oral Oral Pulse Rate 101 H 107 H Respiratory Rate 16 19 H Respiratory Effort Blood Pressure 112/70 112/69 Blood Pressure Mean 84 83 Blood Pressure Source Monitor Monitor Blood Pressure Position Supine Semi-Fowlers Blood Pressure Location Right Arm Right Arm Pulse Ox 100 100 Oxygen Delivery Method Nasal Cannula Nasal Cannula Oxygen Flow Rate (L/min) 4 2 Positive well developed and cachectic General Appearance ED: well developed, cachectic and NAD; Negative for cyanotic or diaphoretic Nutritional Appearance: cachectic HEENT Reports dry mucous membranes HEENT Narrative: Head is atraumatic normocephalic. There is temporal wasting. Ears normal. Nares patent. Posterior pharynx normal. Uvula is midline. There is no deviation with protrusion of the tongue. Mouth ED: Yes dry mucous membranes Mouth: dry mucous membranes Eyes PERRL and EOMs intact bilaterally General Eye ED: Yes pale conjunctiva and scleral icterus Neck no lymphadenopathy, supple and no JVD Chest Wall inspection of chest normal and palpation of chest normal Resp normal respiratory effort and clear to auscultation bilaterally Cardio regular rhythm, S1 normal heart sound, S2 normal heart sound and no murmurs Rate: tachycardic GI GI Narrative: Abdomen is scaphoid. There is no hepatosplenomegaly. There is no palpable pulsatile mass. There is no abdominal bruit. There is no caput medusa. Palpation: soft Back/Spine no CVA tenderness Extremity Extremity Narrative: Patient has edema of the lower extremities 2 mm pitting. Neuro oriented x3, CN's II-XII intact bilaterally and no sensory deficits noted Sensorium / Orientation: alert Psych mental status grossly normal Skin No skin turgor normal Skin Narrative: Patient may have pallor. Difficult to determine since he has jaundice as well. General Skin Exam: jaundice MDM MDM MDM Narrative Medical decision making narrative: Patient with painless jaundice and weight loss and night sweats. Concern patient has pancreatic malignancy. Will obtain a CT of the abdomen and pelvis with IV and p.o. contrast. The hypoxia was noted is not concerning since patient normally wears oxygen and the waveform was poor and deemed to be inaccurate. Differential diagnosis would include biliary obstruction to 2 hepatic mass, pancreatic mass possible metastatic disease. Patient and family member were informed that he in all likelihood will require admission and that he has something of significance causing his constellation of symptoms. History & Record Review Additional record(s) reviewed:: Prior inpatient record (Admitted July 2022 for acute respiratory failure with hypoxia and exacerbation of COPD.) and Prior ED visit (December 2023 seen for COPD.) Lab Data Attestation: I reviewed the patient's lab results. Lab results narrative: Patient's H&H is 4.8 and 16.7. He was typed and screened as well as typed and crossed for 2 units of blood. Patient has a normal MCV. MCH MCV HC are low. Basic metabolic panel is unremarkable. Glucose is slight elevated 132 with a normal CO2 anion gap. Liver enzymes are normal. Total bili and direct bili are normal. Labs: Laboratory Results - last 24 hr 10/14/24 10/14/24 10/14/24 16:00 16:47 17:50 WBC 6.2 RBC 1.93 L Hgb 4.8 L* Hct 16.7 L MCV 86.5 MCH 24.9 L MCHC 28.7 L RDW Std Deviation 67.9 H RDW Coeff of Samira 21.7 H Plt Count 274 MPV 11.4 Immature Gran % (Auto) 0.800 Neut % (Auto) 78.7 H Lymph % (Auto) 12.4 L [place] % (Auto) 6.9 Eos % (Auto) 1.0 Baso % (Auto) 0.2 Absolute Neuts (auto) 4.9 Absolute Lymphs (auto) 0.77 L Nucleated RBC % 0.6 Diff Path Review May foll Platelet Estimate A Polychromasia 1+ Ovalocytes 1+ Acanthocytes (Spur) 1+ Schistocytes 1+ Sodium 140 Potassium 4.2 Chloride 107 Carbon Dioxide 25.0 Anion Gap 7 BUN 21 H Creatinine 0.96 Estim Creat Clear Calc 48.35 Est GFR (MDRD) Af Amer 96 Est GFR (MDRD) Non-Af 80 BUN/Creatinine Ratio 21.8 H Glucose 132 H Lactic Acid 2.2 H* Calcium 8.6 Total Bilirubin 0.30 Direct Bilirubin 0.15 AST 18 ALT 19 Alkaline Phosphatase 64 Total Protein 6.4 Albumin 3.2 Globulin 3.2 Lipase 77 Urine Color Red Urine Clarity Cloudy Urine pH 6.5 Ur Specific [place] 1.015 Urine Protein 500 H Urine Glucose (UA) Normal Urine Ketones 5 H Urine Occult Blood 250 H Urine Nitrite Negative Urine Bilirubin Negative Urine Urobilinogen Normal Ur Leukocyte Esterase 25 H Urine RBC > 100 SEEN Urine WBC 5-10 SEEN Ur Squamous Epith Cells 0-5 SEEN Urine Bacteria 1+ Urine Mucus 0 SEEN Blood Type B POSITIVE Antibody Screen NEGATIVE Crossmatch See Detail Radiography Diagnostic Testing: Clinical Impression(s) from Imaging Studies Abdomen/Pelvis CT 10/14/24 15:57 IMPRESSION: 1. Dilated pancreatic duct with no suspicious mass. 2. Hepatic steatosis with hepatic cysts 3. Significant amount of stool in the colon. Correlate with constipation. 4. Celiac artery pseudoaneurysm 5. Cholelithiasis One or more dose reduction techniques were used (e.g., Automated exposure control, adjustment of the mA and/or kV according to patient size, use of iterative reconstruction technique). [facility] Initial EKG: Attestation: I personally reviewed and interpreted this EKG as follows: Interpretation: Sinus Tachycardia (Rate is of 102 there are premature supraventricular beats and premature frequent ventricular beats. Rate is 102. [place] interval 218 ms. Cures duration 88 ms. QT duration 328 ms. [place] is normal.) Management Discussion w/another healthcare provider: Hospitalist (Spoke with Dr. Karen Castillo. Patient be admitted to ICU. Will inform her of what Dr. Braun told me after I speak with him.) and Supervisor [employer] Duplicating Unit (Spoke with Dr. Braun. He was informed that the CAT scan was done looking for pancreatic cancer because I believe he had jaundice. I did inform him that the CAT scan of the abdomen pelvis was done with IV and p.o. contrast. He will look at the film. This information was relayed to Dr. Castillo. P) Treatment and Re-Evaluation :: In light of the fact the patient is not jaundiced and his hemoglobin 4.8 patient was informed that he would need to have a rectal exam. He inform me that he gave a urine specimen. When I looked at his urine specimen patient has gross hematuria. This is probably the cause of his anemia. In light of this Dr. Braun was paged as well as the hospitalist for admission. Critical Care Time Critical Care Time: Yes Critical care time (excluding procedures): 30-74 minutes (31), Including time spent: (History, physical, documentation, independently speaking with , independent rotation laboratory results, transfusion of blood. 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
[2024-10-14 16:27] LABS: Absolute Lymphocyte Count 0.77 X10^3/uL (0.83-4.51); Absolute Neutrophil Count 4.9 X10^3/uL (2.0-7.7); Basophil# 0.01 X10^3/uL; Basophil% 0.2 % (0-1); Eosinophil# 0.06 X10^3/uL; Hematocrit 16.7 % (40-54); Lymphocyte # 0.77 X10^3/ul (0.83-4.51); Lymphocyte % 12.4 % (19-41); Mean Corp Hgb Conc 28.7 g/dL (32-36); Mean Corpuscular Hgb 24.9 pg (27.0-32.0); Mean Corpuscular Volume 86.5 fL (80-94); Mean Platelet Vol. 11.4 fl (6.2-12.0); Monocyte# 0.43 X10^3/uL; Monocyte% 6.9 % (0-10); NRBC Flagged by Analyzer 0.6 % (0-5); Neutrophil # 4.87 X10^3/uL (2.7-7.7); Neutrophil % 78.7 % (47-70); POSITIVE COUNT YES; POSITIVE MORPHOLOGY YES; Platelet Count 274 K/mm3 (150-450); RBC Distribution Width CV 21.7 % (11.6-14.6); RBC Distribution Width SD 67.9 fl (35.1-43.9); Red Blood Count 1.93 M/mm3 (4.6-6.2); White Blood Count 6.2 K/mm3 (4.4-11.0)
[2024-10-14 16:33] LABS: Differential Indicated SCAN CRITERIA MET; Hemoglobin 4.8 g/dL (13.0-16.5)
[2024-10-14 16:37] LABS: AST(SGOT) 18 U/L (15-37); Alanine Aminotransfer ALT/SGPT 19 U/L (16-61); Albumin, Serum 3.2 g/dL (3.2-5.0); Alkaline Phosphatase 64 U/L (45-117); Anion Gap 7 (5-15); BUN 21 mg/dL (7-18); BUN/Creat Ratio 21.8 RATIO (10-20); Bilirubin, Direct 0.15 mg/dL (0.00-0.30); Calcium,Total 8.6 mg/dL (8.5-10.1); Chloride 107 mmol/L (98-107); Creatinine, Serum 0.96 mg/dL (0.70-1.30); EST Glomerular Filtration Rate 80 mL/min (>60); Est Glom Filt Rate - Afr Amer 96 mL/min (>60); Estimated Creatinine Clearance 48.35 ml/min; Globulin 3.2 g/dL (2.2-4.2); Glucose 132 mg/dL (74-106); Lipase 77 U/L (73-393); Potassium 4.2 mmol/L (3.5-5.1); Protein, Total 6.4 g/dL (6.4-8.2); Sodium Level 140 mmol/L (136-145)
[2024-10-14 16:59] LABS: Acanthocytes 1+; Ovalocyte 1+; Polychromasia 1+
[2024-10-14 17:00] LABS: Platelet Estimate A (ADEQ); Schistocytes 1+
[2024-10-14 17:03] LABS: Lactic Acid 2.2 mmol/L (0.4-1.9)
[2024-10-14 18:28] LABS: Mucous, Urine 0 SEEN /hpf (<or=2+)
[2024-10-14 18:38] LABS: Color, Urine Red (Yellow); Glucose, Dipstick Normal (Normal); Ketone-Dipstick 5 mg/dl (Negative); Leukocyte Esterase-Dipstick 25 /ul (Negative); Nitrite-Dipstick Negative (Negative); Occult Blood-Urine 250 /ul (Negative); Protein-Dipstick 500 mg/dl (Negative); Specific Gravity, Urine 1.015 (1.002-1.030); Urine Bilirubin Dipstick Negative (Negative); Urine Clarity Cloudy (Clear); Urine Urobilinogen Normal (Normal); Urine pH 6.5 (5.0 - 8.0)
[2024-10-14 19:05] LABS: Bacteria 1+ /hpf (None Seen); Red Blood Cells-Urine > 100 SEEN /hpf (0-5); Squamous Epithelial Cells - UA 0-5 SEEN /hpf (0-5)
[2024-10-14 19:08] LABS: White Blood Cells 5-10 SEEN /hpf (0-5)
--- NOTE | 2024-10-14 19:58 | CASEMGMT ---
Care Management Face to Face with patient for initial transition planning/care coordination assessment in the ED. This copywriter introduced self and role at [facility]. Patient alert and oriented. Patient's , Kasie, bedside and permission given to speak in front of patient's . Patient willing to participate in assessment and is able to answer all questions appropriately with help of patient's . Care providers, pharmacy, and demographics verified. Admitting Diagnosis: symptomatic anemia Other diagnosis history: pneumothorax, COPD, prostate cancer, former smoker PCP: Rosendo Lopez Specialists: Dr. Amaral, nuclear physics teacher Preferred Pharmacy: [facility]. [facility] for continuous churn buttermaker medication. Insurance: [facility] Medicare Advantage Prescription Benefit: yes Living Will/HPOA: none, but states desire to complete during admission. LNOK: , Kasie, 5 biological children and 2 daughters who patient and have guardianship over Living Arrangements: with in a 2 story home. 5 steps to get in front, but none if enter in back door. 12 steps up to bathroom and bedroom, but stair lift available if needed (from patient's mother in law). Independent with all ADLs at baseline. Transportation: patient drives; patient's drives at night. DME: stair lift, nebulizer, pulse ox, O2 2L through [employer] ([place]) HHC: yes, after 2021 hospitalization at [facility] -- agency unknown. SNF/Rehab: states patient did [facility] pulmonary rehab Community Resources: none Patient goals: Patient wishes to discharge home and states a desire for HHC to be set up should that be recommended. Patient denies any further needs or concerns at this time. Disposition Plan: admission to acute; RN CM/SW to follow for discharge planning needs that may arise. Hillary Jacobson, LOCAL FLATBED DRIVER, OPERATIONS PLANT ATTENDANT
--- NOTE | 2024-10-14 20:06 | PCM.HP.STD ---
HPI - General General Date of Admission: 10/14/24 Date of Service: 10/14/24 Chief Complaint: Dark urine, fatigue, SOB HPI Narrative JUSTIN HULL, is a 79-year-old male history of COPD, prostate cancer, former smoker presented [facility] ED 10/14/2024 due to fatigue, weight loss, poor appetite and increased shortness of breath. Has lost 9 pounds in 3 months and has no appetite or energy. He does wear oxygen at night because he is concerned he may have sleep apnea but never underwent formal testing. Has had dark-colored urine for 3 to 4 weeks and also has had a chronic left hip pain suspected to be due to bursitis and has been placed on NSAIDs. In the ED heart rate low 100s with initial blood pressure of 105/67 respiratory rate of 20. Pulse ox initially 79% but is then documented that was a poor waveform. Hemoglobin 4.8 with his last hemoglobin 14.5 on 01/06/2024. BMP with slightly elevated BUN of 21 otherwise within normal limits and liver profile within normal limits. Lactic acid 2.2. Patient typed and crossed for [address] abdomen pelvis obtained which showed dilated pancreatic duct with no suspicious mass, hepatic steatosis with hepatic cysts, significant stool burden, cholelithiasis and celiac artery pseudoaneurysm. Patient's UA with gross hematuria. Urology contacted and recommended admission. Hospitalist contacted for admission, patient evaluated at bedside and reports as above with the several weeks of fatigue, decreasing weight with poor p.o. intake and increasing shortness of breath. Patient reports his urine has been dark for 3 to 4 weeks and is intermittently darker than others. He does intermittently get constipated but reports he had a normal bowel movement earlier today. Occasionally gets a tight feeling in his chest over the past couple weeks as well but not presently having this concern. Currently patient receiving blood and reports he feels about the same as when he came in. Denies any nausea or vomiting, no abdominal pain, reports his only pain is some left hip pain for which she previously was taking meloxicam but did not find it helpful so he is no longer taking this. Patient denies any dark or bloody stool. Additionally patient reports he has been able to urinate well, did pass a clot earlier but otherwise has been feeling like he is emptying his bladder well, also denies any suprapubic tenderness. [facility] Medical History Pneumothorax Asthma exacerbation in COPD Prostate CA COPD (chronic obstructive pulmonary disease) Glaucoma High cholesterol Home Medications ?Medication ?Instructions ?Recorded ?Last Taken ?Type artificial tears(hypromellose) 0.3 1 drp EACH EYE BID DRY EYE 08/25/22 10/13/24 History % eye drops aspirin 81 mg tablet,delayed 81 mg PO DAILY HEART HEALTH 08/25/22 10/13/24 History release lovastatin 40 mg tablet 40 mg PO DAILY CHOLESTEROL 08/25/22 10/13/24 History timolol maleate 0.5 % eye drops 1 drp EACH EYE BID GLUCOMA 08/25/22 10/13/24 History albuterol sulfate 90 mcg/actuation 2 puff inhalation Q6H PRN Dyspnea 12/13/22 01/05/24 History aerosol inhaler docusate sodium 100 mg capsule 100 mg PO QHS 12/13/22 10/13/24 History (Colace) fluticasone fur. 200 mcg-umeclid 1 inh inhalation 212912/13/22 10/13/24 History 62.5 mcg-vilant 25 mcg inhalat.powder (Trelegy Ellipta) fluticasone propionate 50 1 spray intranasal DAILY PRN nasal 12/13/22 01/05/24 History mcg/actuation nasal congestion spray,suspension guaifenesin 600 mg tablet, 600 mg PO BID 12/13/22 10/13/24 History extended release 12 hr (Mucinex) acetaminophen 500 mg tablet 500 - 1,000 mg PO Q6H PRN pain 10/14/24 Unknown History loratadine 10 mg tablet (Allergy 10 mg PO DAILY 10/14/24 10/13/24 History Relief (loratadine)) vitamins A,C,S-dqok-tkhlti 2,148 2 tab PO BID 10/14/24 10/13/24 History mcg-113 mg-45 mg-17.4 mg tablet (Eye Multivitamin) Allergy/AdvReac Type Severity Reaction Status Date / Time propofol Allergy Severe Other Verified 10/14/24 15:24 Family History Other COPD (chronic obstructive pulmonary disease) Heart disease Hypertension Surgical History H/O radical prostatectomy Social History household members: family Smoking Status: Former smoker alcohol intake: former ROS ROS Narrative General: Denies fever/chills HENT: Denies headache EYES: Denies changes in vision Resp: Denies cough, shortness of breath particularly on exertion Cardiac: Denies chest pain, occasionally with the above symptoms will get some chest tightness but none at present GI: Denies abdominal pain, sometimes constipated but reports recent normal bowel movement, denies nausea/vomiting : Has had dark urine, sometimes worse than others Extremity: Denies swelling MSK: Some generalized weakness Neuro: Denies any numbness/tingling Heme: Aside from his urine denies any bleeding or bruising Skin: Denies rashes Psychiatric: No complaints voiced Vital Signs Vital Signs Vital Signs: 10/14/24 15:24 10/14/24 15:33 10/14/24 15:37 Temperature 97.9 F 97.9 F Temperature Source Oral Oral Pulse Rate 107 H 108 H Respiratory Rate 20 H 21 H Respiratory Effort Blood Pressure 105/67 110/53 L Blood Pressure Mean 79 72 Blood Pressure Source Blood Pressure Position Blood Pressure Location Pulse Ox 79 100 84 Oxygen Delivery Method Nasal Cannula Nasal Cannula Nasal Cannula Oxygen Flow Rate (L/min) 2 6 4 10/14/24 16:10 10/14/24 16:23 10/14/24 16:33 Temperature 97.9 F Temperature Source Oral Pulse Rate 103 H Respiratory Rate 17 Respiratory Effort Short of Breath Blood Pressure 131/89 H 152/81 H Blood Pressure Mean 103 104 Blood Pressure Source Blood Pressure Position Blood Pressure Location Pulse Ox 100 100 Oxygen Delivery Method Nasal Cannula Nasal Cannula Oxygen Flow Rate (L/min) 4 4 10/14/24 16:52 10/14/24 16:52 10/14/24 18:00 Temperature 97.9 F 98.8 F Temperature Source Oral Oral Pulse Rate 106 H 82 Respiratory Rate 17 16 Respiratory Effort Blood Pressure 138/75 H 138/75 H 161/75 H Blood Pressure Mean 96 96 103 Blood Pressure Source Blood Pressure Position Blood Pressure Location Pulse Ox 100 100 Oxygen Delivery Method Nasal Cannula Room Air Oxygen Flow Rate (L/min) 4 10/14/24 18:17 10/14/24 18:32 10/14/24 18:55 Temperature 98.3 F 98.8 F 97.9 F Temperature Source Oral Oral Pulse Rate 101 H 107 H 103 H Respiratory Rate 16 19 H 18 Respiratory Effort Blood Pressure 112/70 112/69 123/60 H Blood Pressure Mean 84 83 81 Blood Pressure Source Monitor Monitor Blood Pressure Position Supine Semi-Fowlers Blood Pressure Location Right Arm Right Arm Pulse Ox 100 100 98 Oxygen Delivery Method Nasal Cannula Nasal Cannula Oxygen Flow Rate (L/min) 4 2 10/14/24 19:00 Temperature 98.6 F Temperature Source Oral Pulse Rate 81 Respiratory Rate 16 Respiratory Effort Blood Pressure 139/87 H Blood Pressure Mean 104 Blood Pressure Source Blood Pressure Position Blood Pressure Location Pulse Ox 100 Oxygen Delivery Method Room Air Oxygen Flow Rate (L/min) Weight Weight: 55.7 kg Body Mass Index (BMI) 19.8 Physical Exam Narrative General: Alert, oriented, no apparent distress HEENT: Atraumatic, normocephalic Eyes: extraocular movements grossly intact Neck: Supple Respiratory: Clear to auscultation bilaterally Cardiovascular: Low-grade sinus tachycardia GI: Soft, nontender, nondistended Extremities: No edema Musculoskeletal: Moving all extremities Neuro: No overt focal neurological deficits Skin: No rashes appreciated Psych: Cooperative Results Lab / Micro Data 10/14/24 16:00 10/14/24 16:00 Labs: Laboratory Results - last 24 hr 10/14/24 16:00: WBC 6.2, RBC 1.93 L, Hgb 4.8 L*, Hct 16.7 L, MCV 86.5, MCH 24.9 L, MCHC 28.7 L, RDW Std Deviation 67.9 H, RDW Coeff of Samira 21.7 H, Plt Count 274, MPV 11.4, Immature Gran % (Auto) 0.800, Neut % (Auto) 78.7 H, Lymph % (Auto) 12.4 L, [place] % (Auto) 6.9, Eos % (Auto) 1.0, Baso % (Auto) 0.2, Absolute Neuts (auto) 4.9, Absolute Lymphs (auto) 0.77 L, Nucleated RBC % 0.6, Diff Path Review May foll, Platelet Estimate A, Polychromasia 1+, Ovalocytes 1+, Acanthocytes (Spur) 1+, Schistocytes 1+, Sodium 140, Potassium 4.2, Chloride 107, Carbon Dioxide 25.0, Anion Gap 7, BUN 21 H, Creatinine 0.96, Estim Creat Clear Calc 48.35, Est GFR (MDRD) Af Amer 96, Est GFR (MDRD) Non-Af 80, BUN/Creatinine Ratio 21.8 H, Glucose 132 H, Lactic Acid 2.2 H*, Calcium 8.6, Total Bilirubin 0.30, Direct Bilirubin 0.15, AST 18, ALT 19, Alkaline Phosphatase 64, Total Protein 6.4, Albumin 3.2, Globulin 3.2, Lipase 77 10/14/24 16:47: Blood Type B POSITIVE, Antibody Screen NEGATIVE, Crossmatch See Detail 10/14/24 17:50: Urine Color Red, Urine Clarity Cloudy, Urine pH 6.5, Ur Specific [place] 1.015, Urine Protein 500 H, Urine Glucose (UA) Normal, Urine Ketones 5 H, Urine Occult Blood 250 H, Urine Nitrite Negative, Urine Bilirubin Negative, Urine Urobilinogen Normal, Ur Leukocyte Esterase 25 H, Urine RBC > 100 SEEN, Urine WBC 5-10 SEEN, Ur Squamous Epith Cells 0-5 SEEN, Urine Bacteria 1+, Urine Mucus 0 SEEN Imaging Radiology Impression Abdomen/Pelvis CT 10/14/24 15:57 IMPRESSION: 1. Dilated pancreatic duct with no suspicious mass. 2. Hepatic steatosis with hepatic cysts 3. Significant amount of stool in the colon. Correlate with constipation. 4. Celiac artery pseudoaneurysm 5. Cholelithiasis One or more dose reduction techniques were used (e.g., Automated exposure control, adjustment of the mA and/or kV according to patient size, use of iterative reconstruction technique). Reading Location: [facility] Assessment & Plan Assessment/Plan (1) Symptomatic anemia: PLAN: Plan # Acute blood loss anemia/symptomatic anemia -Patient hemoglobin 4.8 in the ED with last hemoglobin 14.5 on 01/06/2024. -Patient typed and screened for 2 units packed red blood cells and these are being transfused, patient to be admitted to the intensive care unit given his hemoglobin of 4.8 and he is symptomatic -It is suspected this is urologic in nature given his several weeks of hematuria, UA did show blood and red blood cells -Trend CBC -Urology consult -Discussed with urology, as patient is urinating well without any obstruction so no need for Sam catheter placement at this time but will need to continue to monitor -Possible cystoscopy on Monday once patient more medically optimized -Monitor I's and O's -Holding aspirin #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
[2024-10-14 20:13] LABS: Reflex Lactate? Y
[2024-10-14] MEDS: 0.9% Normal Saline (1000mL) 1,000 ML 50 ML IV (21:00)
[2024-10-14] MEDS: Acetaminophen 325 MG Tablet 650 MG PO (21:31)
[2024-10-14] MEDS: Senna/Docusate Sodium 1 Tablet 2 TABLET PO (21:37)
[2024-10-14] MEDS: Atorvastatin Calcium 10 MG Tablet PO (21:37)
[2024-10-14] MEDS: Timolol 0.5% 5ML OPTH.BTL 1 DRP EACH EYE (22:05)
[2024-10-14] MEDS: Ipratropium/Albuterol Sulfate 3 ML AMPUL.NEB INHALATION (22:19)
[2024-10-14 22:28] LABS: Lactic Acid 1.7 mmol/L (0.4-1.9)
[2024-10-15] VITALS (21 sets, daily range): BP systolic 95–138; BP diastolic 52–88; PULSE 73–111; RESP 12–24; TEMP 36.1–36.9; O2SAT 95–100; BMI 18.6
[2024-10-15] MEDS: 0.9% Saline Lock 10 ML Syringe IV (00:37)
[2024-10-15 03:11] LABS: Hematocrit 23.9 % (40-54); Hemoglobin 7.2 g/dL (13.0-16.5); Mean Corp Hgb Conc 30.1 g/dL (32-36); Mean Corpuscular Hgb 26.1 pg (27.0-32.0); Mean Corpuscular Volume 86.6 fL (80-94); Mean Platelet Vol. 11.6 fl (6.2-12.0); Platelet Count 164 K/mm3 (150-450); RBC Distribution Width CV 18.6 % (11.6-14.6); RBC Distribution Width SD 58.5 fl (35.1-43.9); Red Blood Count 2.76 M/mm3 (4.6-6.2); White Blood Count 4.8 K/mm3 (4.4-11.0)
[2024-10-15 06:49] LABS: Absolute Lymphocyte Count 1.05 X10^3/uL (0.83-4.51); Absolute Neutrophil Count 2.3 X10^3/uL (2.0-7.7); Basophil# 0.02 X10^3/uL; Basophil% 0.5 % (0-1); Eosinophil# 0.19 X10^3/uL; Eosinophils% 4.7 % (0-5); Hematocrit 21.4 % (40-54); Hemoglobin 6.6 g/dL (13.0-16.5); Lymphocyte # 1.05 X10^3/ul (0.83-4.51); Lymphocyte % 26.1 % (19-41); Mean Corp Hgb Conc 30.8 g/dL (32-36); Mean Corpuscular Hgb 26.3 pg (27.0-32.0); Mean Corpuscular Volume 85.3 fL (80-94); Mean Platelet Vol. 10.9 fl (6.2-12.0); Monocyte# 0.44 X10^3/uL; Monocyte% 10.9 % (0-10); NRBC Flagged by Analyzer 0.5 % (0-5); Neutrophil # 2.32 X10^3/uL (2.7-7.7); Neutrophil % 57.6 % (47-70); Platelet Count 188 K/mm3 (150-450); RBC Distribution Width CV 18.6 % (11.6-14.6); RBC Distribution Width SD 58.1 fl (35.1-43.9); Red Blood Count 2.51 M/mm3 (4.6-6.2)
--- NOTE | 2024-10-15 07:13 | PCM.CONS.U ---
Assessment & Plan Assessment/Plan (1) Painless hematuria: PLAN: 79-year-old male with gross hematuria history of prostate removal in the past and also radiation therapy n.p.o. at midnight plan to take him to surgery tomorrow for cystoscopy (2) Gross hematuria: (3) Symptomatic anemia: HPI Consult Data Date of Consult: 10/15/24 HPI Narrative Reason for Consultation: Gross hematuria HPI Narrative: JUSTIN HULL, is a 79 M who presents to the hospital with gross hematuria he was found to have severe anemia was stabilized in the ICU he has been able to urinate okay has a history of a prostatectomy in the past he believes he had radiation therapy as well. 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 N.p.o. at midnight will plan to take him to surgery tomorrow for cystoscopy evacuation of clots and to find a source of the bleeding and cauterize it. [facility] Medical History Pneumothorax Asthma exacerbation in COPD Prostate CA COPD (chronic obstructive pulmonary disease) Glaucoma High cholesterol Home Medications ?Medication ?Instructions ?Recorded ?Last Taken ?Type artificial tears(hypromellose) 0.3 1 drp EACH EYE BID DRY EYE 08/25/22 10/13/24 History % eye drops aspirin 81 mg tablet,delayed 81 mg PO DAILY HEART HEALTH 08/25/22 10/13/24 History release lovastatin 40 mg tablet 40 mg PO DAILY CHOLESTEROL 08/25/22 10/13/24 History timolol maleate 0.5 % eye drops 1 drp EACH EYE BID GLUCOMA 08/25/22 10/13/24 History albuterol sulfate 90 mcg/actuation 2 puff inhalation Q6H PRN Dyspnea 12/13/22 01/05/24 History aerosol inhaler docusate sodium 100 mg capsule 100 mg PO QHS 12/13/22 10/13/24 History (Colace) fluticasone fur. 200 mcg-umeclid 1 inh inhalation 212912/13/22 10/13/24 History 62.5 mcg-vilant 25 mcg inhalat.powder (Trelegy Ellipta) fluticasone propionate 50 1 spray intranasal DAILY PRN nasal 12/13/22 01/05/24 History mcg/actuation nasal congestion spray,suspension guaifenesin 600 mg tablet, 600 mg PO BID 12/13/22 10/13/24 History extended release 12 hr (Mucinex) acetaminophen 500 mg tablet 500 - 1,000 mg PO Q6H PRN pain 10/14/24 Unknown History loratadine 10 mg tablet (Allergy 10 mg PO DAILY 10/14/24 10/13/24 History Relief (loratadine)) vitamins A,C,J-zcxj-nazvwd 2,148 2 tab PO BID 10/14/24 10/13/24 History mcg-113 mg-45 mg-17.4 mg tablet (Eye Multivitamin) Allergy/AdvReac Type Severity Reaction Status Date / Time propofol Allergy Severe Other Verified 10/14/24 15:24 Family History Other COPD (chronic obstructive pulmonary disease) Heart disease Hypertension Surgical History H/O radical prostatectomy Social History household members: family Smoking Status: Former smoker alcohol intake: former Physical Exam Const alert and oriented x3 General Appearance: cooperative HEENT normocephalic, head/scalp atraumatic, EAC's normal and TM's normal bilaterally Eyes PERRL and EOMs intact bilaterally Pupil: sluggish Neck no lymphadenopathy, supple and no JVD General: trachea midline Lymph Lymphatic: no lymphadenopathy noted, lymphedema and lymphadenopathy Resp normal respiratory effort, normal air movement and clear to auscultation bilaterally Cardio regular rate, regular rhythm and peripheral pulses 2+ throughout GI soft to palpation, non-tender and non-distended Extremity normal capillary refill and no clubbing, cyanosis or edema General Extremity: no tenderness to palpation of joints or extremities Skin no rashes or lesions noted General Skin Exam: turgor normal Lesions: no lesions Rashes: no rashes Neuro CN's II-XII intact bilaterally Speech: speech normal Motor Exam: strength 5/5 throughout; Negative for general weakness Psych thought process normal, cooperative and affect normal Appearance: appropriate Lab / Micro Data 10/15/24 06:25 10/14/24 16:00 Labs: Laboratory Results - last 24 hr 10/14/24 16:00: WBC 6.2, RBC 1.93 L, Hgb 4.8 L*, Hct 16.7 L, MCV 86.5, MCH 24.9 L, MCHC 28.7 L, RDW Std Deviation 67.9 H, RDW Coeff of Samira 21.7 H, Plt Count 274, MPV 11.4, Immature Gran % (Auto) 0.800, Neut % (Auto) 78.7 H, Lymph % (Auto) 12.4 L, [place] % (Auto) 6.9, Eos % (Auto) 1.0, Baso % (Auto) 0.2, Absolute Neuts (auto) 4.9, Absolute Lymphs (auto) 0.77 L, Nucleated RBC % 0.6, Diff Path Review December, Platelet Estimate A, Polychromasia 1+, Ovalocytes 1+, Acanthocytes (Spur) 1+, Schistocytes 1+, Sodium 140, Potassium 4.2, Chloride 107, Carbon Dioxide 25.0, Anion Gap 7, BUN 21 H, Creatinine 0.96, Estim Creat Clear Calc 48.35, Est GFR (MDRD) Af Amer 96, Est GFR (MDRD) Non-Af 80, BUN/Creatinine Ratio 21.8 H, Glucose 132 H, Lactic Acid 2.2 H*, Calcium 8.6, Total Bilirubin 0.30, Direct Bilirubin 0.15, AST 18, ALT 19, Alkaline Phosphatase 64, Total Protein 6.4, Albumin 3.2, Globulin 3.2, Lipase 77 10/14/24 16:47: Blood Type B POSITIVE, Antibody Screen NEGATIVE, Crossmatch See Detail 10/14/24 17:50: Urine Color Red, Urine Clarity Cloudy, Urine pH 6.5, Ur Specific [place] 1.015, Urine Protein 500 H, Urine Glucose (UA) Normal, Urine Ketones 5 H, Urine Occult Blood 250 H, Urine Nitrite Negative, Urine Bilirubin Negative, Urine Urobilinogen Normal, Ur Leukocyte Esterase 25 H, Urine RBC > 100 SEEN, Urine WBC 5-10 SEEN, Ur Squamous Epith Cells 0-5 SEEN, Urine Bacteria 1+, Urine Mucus 0 SEEN 10/14/24 21:45: Lactic Acid 1.7 10/15/24 03:00: WBC 4.8, RBC 2.76 L, Hgb 7.2 L, Hct 23.9 L, MCV 86.6, MCH 26.1 L, MCHC 30.1 L, RDW Std Deviation 58.5 H, RDW Coeff of Samira 18.6 H, Plt Count 164, MPV 11.6 10/15/24 06:25: WBC 4.0 L, RBC 2.51 L, Hgb 6.6 L, Hct 21.4 L, MCV 85.3, MCH 26.3 L, MCHC 30.8 L, RDW Std Deviation 58.1 H, RDW Coeff of Samira 18.6 H, Plt Count 188, MPV 10.9, Immature Gran % (Auto) 0.200, Neut % (Auto) 57.6, Lymph % (Auto) 26.1, [place] % (Auto) 10.9 H, Eos % (Auto) 4.7, Baso % (Auto) 0.5, Absolute Neuts (auto) 2.3, Absolute Lymphs (auto) 1.05, Nucleated RBC % 0.5 Imaging Radiology Impression Abdomen/Pelvis CT 10/14/24 15:57 IMPRESSION: 1. Dilated pancreatic duct with no suspicious mass. 2. Hepatic steatosis with hepatic cysts 3. Significant amount of stool in the colon. Correlate with constipation. 4. Celiac artery pseudoaneurysm 5. Cholelithiasis One or more dose reduction techniques were used (e.g., Automated exposure control, adjustment of the mA and/or kV according to patient size, use of iterative reconstruction technique). Reading Location: [facility]
[2024-10-15] MEDS: Budesonide Respules 0.5 MG/2 ML AMPUL.NEB. INHALATION ×2 (07:38→20:20)
[2024-10-15] MEDS: Ipratropium/Albuterol Sulfate 3 ML AMPUL.NEB INHALATION ×3 (07:38→20:20)
[2024-10-15 08:02] LABS: Anion Gap 7 (5-15); BUN 16 mg/dL (7-18); BUN/Creat Ratio 22.3 RATIO (10-20); Calcium,Total 8.3 mg/dL (8.5-10.1); Chloride 110 mmol/L (98-107); Creatinine, Serum 0.72 mg/dL (0.70-1.30); EST Glomerular Filtration Rate 112 mL/min (>60); Est Glom Filt Rate - Afr Amer 136 mL/min (>60); Estimated Creatinine Clearance 56.35 ml/min; Glucose 82 mg/dL (74-106); Magnesium 1.8 mg/dL (1.6-2.6); Potassium 5.1 mmol/L (3.5-5.1); Sodium Level 142 mmol/L (136-145)
[2024-10-15] MEDS: Senna/Docusate Sodium 1 Tablet 2 TABLET PO ×2 (08:11→21:07)
[2024-10-15] MEDS: Timolol 0.5% 5ML OPTH.BTL 1 DRP EACH EYE ×2 (08:11→21:08)
[2024-10-15] MEDS: CARBOXYMETHYLCELLULOSE SODIUM 15 ML OPHTH DROPS 1 DRP EACH EYE ×2 (08:32→21:08)
--- NOTE | 2024-10-15 10:54 | PCM.PN.HOSP ---
Reason for Visit Reason for Visit: Diagnoses Anemia, unspecified (10/14/24) Gross hematuria (10/14/24) Hematuria, unspecified (10/14/24) Subjective Subjective Saw patient at bedside this morning, son present. Patient was sitting up comfortably in bed, conversing normally, in no acute distress. Stated his energy level was somewhat improved today after the blood transfusion yesterday. Has continued to have hematuria with small clots, similar to yesterday. No other new concerns this morning. Objective Data Objective Data Vital Signs: Vital Signs Temp Pulse Resp BP Pulse Ox O2 Del Method O2 Flow Rate 97.5 F L 109 H 24 H 110/67 95 Room Air 2 10/15/24 10:00 10/15/24 10:00 10/15/24 10:00 10/15/24 10:00 10/15/24 10:00 10/15/24 10:00 10/15/24 08:00 Oxygen Flow Rate (L/min) 2 Oxygen Delivery Method Room Air Weight: 54.1 kg Body Mass Index (BMI) 18.6 Intake & Output: Intake and Output for Last 24 Hours 10/13/24 10/14/24 10/15/24 23:59 23:59 23:59 Intake Total 500 / 500 998.33 / 998.33 Output Total 250 / 250 200 / 200 Balance 250 / 250 798.33 / 798.33 Lab / Micro Data 10/15/24 15:20 10/15/24 06:25 Labs: Laboratory Results - last 24 hr 10/14/24 16:00: WBC 6.2, RBC 1.93 L, Hgb 4.8 L*, Hct 16.7 L, MCV 86.5, MCH 24.9 L, MCHC 28.7 L, RDW Std Deviation 67.9 H, RDW Coeff of Samira 21.7 H, Plt Count 274, MPV 11.4, Immature Gran % (Auto) 0.800, Neut % (Auto) 78.7 H, Lymph % (Auto) 12.4 L, [place] % (Auto) 6.9, Eos % (Auto) 1.0, Baso % (Auto) 0.2, Absolute Neuts (auto) 4.9, Absolute Lymphs (auto) 0.77 L, Nucleated RBC % 0.6, Diff Path Review May foll, Platelet Estimate A, Polychromasia 1+, Ovalocytes 1+, Acanthocytes (Spur) 1+, Schistocytes 1+, Sodium 140, Potassium 4.2, Chloride 107, Carbon Dioxide 25.0, Anion Gap 7, BUN 21 H, Creatinine 0.96, Estim Creat Clear Calc 48.35, Est GFR (MDRD) Af Amer 96, Est GFR (MDRD) Non-Af 80, BUN/Creatinine Ratio 21.8 H, Glucose 132 H, Lactic Acid 2.2 H*, Calcium 8.6, Total Bilirubin 0.30, Direct Bilirubin 0.15, AST 18, ALT 19, Alkaline Phosphatase 64, Total Protein 6.4, Albumin 3.2, Globulin 3.2, Lipase 77 10/14/24 16:47: Blood Type B POSITIVE, Antibody Screen NEGATIVE, Crossmatch See Detail 10/14/24 16:47: Crossmatch See Detail 10/14/24 17:50: Urine Color Red, Urine Clarity Cloudy, Urine pH 6.5, Ur Specific [place] 1.015, Urine Protein 500 H, Urine Glucose (UA) Normal, Urine Ketones 5 H, Urine Occult Blood 250 H, Urine Nitrite Negative, Urine Bilirubin Negative, Urine Urobilinogen Normal, Ur Leukocyte Esterase 25 H, Urine RBC > 100 SEEN, Urine WBC 5-10 SEEN, Ur Squamous Epith Cells 0-5 SEEN, Urine Bacteria 1+, Urine Mucus 0 SEEN 10/14/24 21:45: Lactic Acid 1.7 10/15/24 03:00: WBC 4.8, RBC 2.76 L, Hgb 7.2 L, Hct 23.9 L, MCV 86.6, MCH 26.1 L, MCHC 30.1 L, RDW Std Deviation 58.5 H, RDW Coeff of Samira 18.6 H, Plt Count 164, MPV 11.6 10/15/24 06:25: WBC 4.0 L, RBC 2.51 L, Hgb 6.6 L, Hct 21.4 L, MCV 85.3, MCH 26.3 L, MCHC 30.8 L, RDW Std Deviation 58.1 H, RDW Coeff of Samira 18.6 H, Plt Count 188, MPV 10.9, Immature Gran % (Auto) 0.200, Neut % (Auto) 57.6, Lymph % (Auto) 26.1, [place] % (Auto) 10.9 H, Eos % (Auto) 4.7, Baso % (Auto) 0.5, Absolute Neuts (auto) 2.3, Absolute Lymphs (auto) 1.05, Nucleated RBC % 0.5, Sodium 142, Potassium 5.1, Chloride 110 H, Carbon Dioxide 25.0, Anion Gap 7, BUN 16, Creatinine 0.72, Estim Creat Clear Calc 56.35, Est GFR (MDRD) Af Amer 136, Est GFR (MDRD) Non-Af 112, BUN/Creatinine Ratio 22.3 H, Glucose 82, Calcium 8.3 L, Magnesium 1.8 Radiography Diagnostic Testing: Radiology Impression Abdomen/Pelvis CT 10/14/24 15:57 IMPRESSION: 1. Dilated pancreatic duct with no suspicious mass. 2. Hepatic steatosis with hepatic cysts 3. Significant amount of stool in the colon. Correlate with constipation. 4. Celiac artery pseudoaneurysm 5. Cholelithiasis One or more dose reduction techniques were used (e.g., Automated exposure control, adjustment of the mA and/or kV according to patient size, use of iterative reconstruction technique). Reading [facility] Physical Exam Const alert, oriented x3 and no apparent distress Constitutional Narrative: Elderly male, thin and somewhat unkempt appearing, mildly fatigued appearing but otherwise sitting back comfortably in bed, conversing normally, in no acute distress. General Appearance: cooperative and comfortable HEENT normocephalic, head/scalp atraumatic, hearing grossly normal bilaterally, nasal mucous membranes and turbinates normal and moist oral mucous membranes Eyes PERRL, EOMs intact bilaterally and conjunctivae normal Neck full ROM Chest inspection of chest normal Resp normal respiratory effort, normal air movement, no use of accessory muscles and clear to auscultation bilaterally Cardio no murmurs and peripheral pulses 2+ throughout Cardio Narrative: Tachycardic, regular rhythm. GI normal to inspection, nondistended, normoactive bowel sounds, soft to palpation, non-tender and non-distended Back/Spine normal ROM Extremity normal to inspection, full ROM and no pedal edema Skin no rashes or lesions noted Neuro moves all extremities and no focal motor deficits Speech: speech normal Psych mental status grossly normal Assessment & Plan Assessment/Plan (1) Symptomatic anemia: (2) Gross hematuria: (3) Painless hematuria: PLAN: Plan Patient is an 79-year-old male who presented [facility] ED on 10/14/2024 with worsening weakness and dark urine. 1. Acute symptomatic blood loss anemia secondary to painless hematuria ? Urology following. Hemoglobin 4.8 on admit, prior baseline of 14-15. UA with gross hematuria. CT abdomen pelvis on admit unremarkable. Denied change in stools. Improved to hemoglobin 6.6 after 2 units of blood, given another 2 units of blood on 10/15 with hemoglobin improved to 9.2. Passing small clots but no urinary retention so no need for Sam catheter placement. N.p.o. at midnight with plan for cystoscopy tomorrow for further evaluation. Stable for PCU status on 10/15. 2. Acute debility ? PT/OT/case management following. Patient reports worsening debility over the past few months with poor p.o. intake and some weight loss. Would prefer home with home health care on discharge if able. Appreciate therapy recommendations. 3. 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 No inpatient needs, outpatient follow-up. 4. History of COPD with chronic respiratory failure ? Wears 2 L nasal cannula at baseline. Stable on home 2 L and breathing comfortably, not in acute exacerbation. Continue home inhalers. 5. History of prostate cancer ? With history of radical prostatectomy. 6. Underweight BMI ? Nutrition consulted. BMI 18 on admit. Will add protein supplements to meals. DVT prophylaxis: SCDs CODE STATUS: Full code, verified Expected disposition: Likely home with home health care, TBD Total clinical time spent by myself addressing the patient's medical issues, reviewing all the data, and collaborating with patient's care team: 35 minutes. Charges/Coding Visit Charges Inpatient E&M: 07396 Subs Hosp L2
--- NOTE | 2024-10-15 12:17 | CASEMGMT ---
Addendum entered by Mely Gasca 10/15/24 14:57: Social Work SW started POA for healthcare documents w/pt, however pt needs to get his sister's address. He will get the address this evening, SW can stop back tomorrow to complete POA and LW. DERICK Pappas Original Note: Social Work SW met w/pt, as SW informed pt would like to complete LW/POA. Pt would like to complete the documents but would like to wait until his gets here. SW asked bedside RN to notify SW when she arrives. DERICK Pappas
[2024-10-15] MEDS: Acetaminophen 325 MG Tablet 650 MG PO (14:40)
[2024-10-15 15:29] LABS: Hematocrit 29.6 % (40-54); Hemoglobin 9.2 g/dL (13.0-16.5); Mean Corp Hgb Conc 31.1 g/dL (32-36); Mean Corpuscular Hgb 26.4 pg (27.0-32.0); Mean Corpuscular Volume 84.8 fL (80-94); Platelet Count 174 K/mm3 (150-450); RBC Distribution Width CV 17.7 % (11.6-14.6); RBC Distribution Width SD 54.7 fl (35.1-43.9); Red Blood Count 3.49 M/mm3 (4.6-6.2); White Blood Count 5.9 K/mm3 (4.4-11.0)
[2024-10-15] MEDS: Mag Hydrox/Al Hydrox/Simeth 30 ML UDC PO (19:08)
[2024-10-15] MEDS: Atorvastatin Calcium 10 MG Tablet PO (21:07)
[2024-10-16] VITALS (13 sets, daily range): BP systolic 95–138; BP diastolic 66–85; PULSE 73–108; RESP 15–18; TEMP 36.4–37.1; O2SAT 96–100; BMI 18.7
[2024-10-16 04:06] LABS: Hematocrit 31.5 % (40-54); Hemoglobin 9.7 g/dL (13.0-16.5); Mean Corp Hgb Conc 30.8 g/dL (32-36); Mean Corpuscular Hgb 25.9 pg (27.0-32.0); Mean Corpuscular Volume 84.2 fL (80-94); Mean Platelet Vol. 10.8 fl (6.2-12.0); Platelet Count 195 K/mm3 (150-450); RBC Distribution Width CV 18.3 % (11.6-14.6); RBC Distribution Width SD 55.5 fl (35.1-43.9); Red Blood Count 3.74 M/mm3 (4.6-6.2); White Blood Count 7.2 K/mm3 (4.4-11.0)
[2024-10-16 04:23] LABS: Magnesium 2.1 mg/dL (1.6-2.6); Phosphorus 2.7 mg/dL (2.5-4.9)
[2024-10-16 05:25] LABS: International Normalized Ratio 1.1; Prothrombin Time (Protime)PT. 14.2 SECONDS (11.7-14.9)
[2024-10-16 05:26] LABS: Partial Thromboplast Time 26.5 Seconds (24.1-36.2)
[2024-10-16 05:36] LABS: AST(SGOT) 33 U/L (15-37); Alanine Aminotransfer ALT/SGPT 15 U/L (16-61); Albumin, Serum 3.3 g/dL (3.2-5.0); Alkaline Phosphatase 65 U/L (45-117); Anion Gap 6 (5-15); BUN 19 mg/dL (7-18); BUN/Creat Ratio 26.4 RATIO (10-20); Bilirubin, Direct 0.28 mg/dL (0.00-0.30); Calcium,Total 8.8 mg/dL (8.5-10.1); Chloride 107 mmol/L (98-107); Creatinine, Serum 0.72 mg/dL (0.70-1.30); EST Glomerular Filtration Rate 112 mL/min (>60); Est Glom Filt Rate - Afr Amer 135 mL/min (>60); Estimated Creatinine Clearance 56.46 ml/min; Glucose 86 mg/dL (74-106); Potassium 4.9 mmol/L (3.5-5.1); Protein, Total 6.3 g/dL (6.4-8.2); Sodium Level 136 mmol/L (136-145)
[2024-10-16] MEDS: Budesonide Respules 0.5 MG/2 ML AMPUL.NEB. INHALATION ×2 (07:20→20:05)
[2024-10-16] MEDS: Ipratropium/Albuterol Sulfate 3 ML AMPUL.NEB INHALATION ×2 (07:20→20:05)
[2024-10-16] MEDS: CARBOXYMETHYLCELLULOSE SODIUM 15 ML OPHTH DROPS 1 DRP EACH EYE ×2 (08:30→21:54)
[2024-10-16] MEDS: Timolol 0.5% 5ML OPTH.BTL 1 DRP EACH EYE ×2 (08:32→21:56)
[2024-10-16 09:09] LABS: Pathologist Review Reviewed
--- NOTE | 2024-10-16 10:24 | PCM.PN.HOSP ---
Reason for Visit Reason for Visit: Diagnoses Anemia, unspecified (10/14/24) Gross hematuria (10/14/24) Hematuria, unspecified (10/14/24) Subjective Subjective Saw patient at bedside this morning. Patient was laying back comfortably in bed, in no acute distress. Plan is for urology procedure this afternoon. Patient denies any new concerns this morning. Objective Data Objective Data Vital Signs: Vital Signs Temp Pulse Resp BP Pulse Ox O2 Del Method O2 Flow Rate 97.5 F L 96 18 138/79 H 100 Nasal Cannula 2 10/16/24 08:35 10/16/24 08:35 10/16/24 08:35 10/16/24 08:35 10/16/24 08:35 10/16/24 08:35 10/16/24 08:35 Oxygen Flow Rate (L/min) 2 Oxygen Delivery Method Nasal Cannula Weight: 54.2 kg Body Mass Index (BMI) 18.7 Intake & Output: Intake and Output for Last 24 Hours 10/14/24 10/15/24 10/16/24 23:59 23:59 23:59 Intake Total 500 / 500 2618.33 / 2618.33 250 / 250 Output Total 250 / 250 700 / 700 150 / 150 Balance 250 / 250 1918.33 / 1918.33 100 / 100 Lab / Micro Data 10/16/24 03:39 10/16/24 03:39 Labs: Laboratory Results - last 24 hr 10/14/24 16:00: Diff Path Review Reviewed 10/14/24 16:47: Crossmatch See Detail 10/15/24 15:20: WBC 5.9, RBC 3.49 L, Hgb 9.2 L, Hct 29.6 L, MCV 84.8, MCH 26.4 L, MCHC 31.1 L, RDW Std Deviation 54.7 H, RDW Coeff of Samira 17.7 H, Plt Count 174, MPV 10.0 10/16/24 03:39: WBC 7.2, RBC 3.74 L, Hgb 9.7 L, Hct 31.5 L, MCV 84.2, MCH 25.9 L, MCHC 30.8 L, RDW Std Deviation 55.5 H, RDW Coeff of Samira 18.3 H, Plt Count 195, MPV 10.8, PT 14.2, INR 1.1, APTT 26.5, Sodium 136, Potassium 4.9, Chloride 107, Carbon Dioxide 23.0, Anion Gap 6, BUN 19 H, Creatinine 0.72, Estim Creat Clear Calc 56.46, Est GFR (MDRD) Af Amer 135, Est GFR (MDRD) Non-Af 112, BUN/Creatinine Ratio 26.4 H, Glucose 86, Calcium 8.8, Phosphorus 2.7, Magnesium 2.1, Total Bilirubin 0.90, Direct Bilirubin 0.28, AST 33, ALT 15 L, Alkaline Phosphatase 65, Total Protein 6.3 L, Albumin 3.3, Globulin 3.0 Physical Exam Const alert, oriented x3 and no apparent distress Constitutional Narrative: Elderly male, thin, mildly fatigued appearing but otherwise sitting back comfortably in bed, conversing normally, in no acute distress. Stable. General Appearance: cooperative and comfortable HEENT normocephalic, head/scalp atraumatic, hearing grossly normal bilaterally, nasal mucous membranes and turbinates normal and moist oral mucous membranes Eyes PERRL, EOMs intact bilaterally and conjunctivae normal Neck full ROM Chest inspection of chest normal Resp normal respiratory effort, normal air movement, no use of accessory muscles and clear to auscultation bilaterally Cardio regular rate, regular rhythm, no murmurs and peripheral pulses 2+ throughout GI normal to inspection, nondistended, normoactive bowel sounds, soft to palpation, non-tender and non-distended Back/Spine normal ROM Extremity normal to inspection, full ROM and no pedal edema Skin no rashes or lesions noted Neuro moves all extremities and no focal motor deficits Speech: speech normal Psych mental status grossly normal Assessment & Plan Assessment/Plan (1) Symptomatic anemia: (2) Gross hematuria: (3) Painless hematuria: PLAN: Plan Patient is an 79-year-old male who presented [facility] ED on 10/14/2024 with worsening weakness and dark urine. 1. Acute symptomatic blood loss anemia secondary to painless hematuria ? Urology following. Hemoglobin 4.8 on admit, prior baseline of 14-15. UA with gross hematuria. CT abdomen pelvis on admit unremarkable. Denied change in stools. Improved to hemoglobin 6.6 after 2 units of blood, given another 2 units of blood on 10/15 with hemoglobin improved to 9.2. Most recent hemoglobin 9.6 on 2/19. Passing small clots but no urinary retention so no need for Sam catheter placement. Transferred to PCU on 10/15. Plan is for cystoscopy this afternoon, will follow-up on results. Continue to monitor CBC daily. 2. Acute debility ? PT/OT/case management following. Patient reports worsening debility over the past few months with poor p.o. intake and some weight loss. Would prefer home with home health care on discharge if able. Appreciate therapy recommendations. 3. 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 No inpatient needs, outpatient follow-up. 4. History of COPD with chronic respiratory failure ? Wears 2 L nasal cannula at baseline. Stable on home 2 L and breathing comfortably, not in acute exacerbation. Continue home inhalers. 5. History of prostate cancer ? With history of radical prostatectomy. 6. Underweight BMI ? Nutrition following. BMI 18 on admit. Did not meet criteria for nutrition. Continue protein supplementation with meals. DVT prophylaxis: SCDs CODE STATUS: Full code, verified Expected disposition: Likely home with home health care, TBD Total clinical time spent by myself addressing the patient's medical issues, reviewing all the data, and collaborating with patient's care team: 35 minutes. Charges/Coding Visit Charges Inpatient E&M: 14646 Subs Hosp L2
--- NOTE | 2024-10-16 11:58 | CASEMGMT ---
SW was notified that patient has his sister's address now to complete advance directives. SW met with patient and assisted him in completing both Healthcare Power of Shutdown Coordinator and Healthcare Living Will. Copies were made and given to patient along with originals. SW also placed a copy of each in patient's chart. Christie MACIAS
[2024-10-16] MEDS: 0.9% Normal Saline (1000mL) 1,000 ML 15 ML IV (13:07)
--- NOTE | 2024-10-16 13:15 | PCM.PRE.AN2 ---
ASA Classification* ASA Classification ASA Classification: 3 Assessment & Plan Anesthesia* Anesthesia Assessment Anesthesia Assessment: Discussed sedation and/or anesthesia options, risks, benefits, and alternatives with patient/parents/legal guardian/POA. Questions invited. The patient/parents/legal guardian/POA seems to understand and agrees to proceed with anesthesia plan. Reviewed the physical assessment, medical history, allergy history and patient home medications list prior to surgery/procedure/anesthetic and documented any changes. Performed airway and anesthesia risk assessments. Anesthesia Type Anesthesia Type: General History Source History Obtained from:: Patient, Chart and Significant Other Anesthesia Focused Assessment* Temperature: 97.5 F Pulse Rate: 96 Blood Pressure: 138/79 Respiratory Rate: 18 Pulse Ox: 100 Oxygen Flow Rate (L/min): 2 Airway Assessment Mouth opens: >3 cm Mallampati Score: II Teeth Condition: Partial Neck Range of motion (ROM): Full ROM Focused Labs Anesthesia Preop lab: CBC WBC 7.2 K/mm3 (4.4-11.0) 10/16/24 03:39 10/16/24 RBC 3.74 M/mm3 (4.6-6.2) L 10/16/24 03:39 10/16/24 Hgb 9.7 g/dL (13.0-16.5) L 10/16/24 03:39 10/16/24 Hct 31.5 % (40-54) L 10/16/24 03:39 10/16/24 Plt Count 195 K/mm3 (150-450) 10/16/24 03:39 10/16/24 CHEMISTRY Potassium 4.9 mmol/L (3.5-5.1) 10/16/24 03:39 10/16/24 Sodium 136 mmol/L (136-145) 10/16/24 03:39 10/16/24 Magnesium 2.1 mg/dL (1.6-2.6) 10/16/24 03:39 10/16/24 Phosphorus 2.7 mg/dL (2.5-4.9) 10/16/24 03:39 10/16/24 BUN 19 mg/dL (7-18) H 10/16/24 03:39 10/16/24 Creatinine 0.72 mg/dL (0.70-1.30) 10/16/24 03:39 10/16/24 Glucose 86 mg/dL (74-106) 10/16/24 03:39 10/16/24 COAG PT 14.2 SECONDS (11.7-14.9) 10/16/24 03:39 10/16/24 Pre-Assessment Diagnosis/Proposed Procedure Planned Operative Procedure(s): cysto clot evac Anesthesia History Anesthesia History - rn psychiatric: Anesthesia History - rn psychiatric Hx Hospitalization Any Problems With Anesthesia [ No 08/25/22 17:29 2] Any Problems With Anesthesia [ No 08/25/22 17:21 1 (Initial Baseline)] Any Problems With Anesthesia Yes: Cannot have propofol 10/16/24 12:19 Cholinesterase deficiency No 10/16/24 12:19 You/Your Family Experience No 10/16/24 12:19 fever (hyperthermia) with Relationship Recent Exposure to Contagious No 10/16/24 12:19 Disease Does patient have nerve No 10/16/24 12:19 stimulator Patient instructed to have No 10/16/24 12:19 device shut off --Does patient have Pacemaker No 10/16/24 12:19 or ICD? When Was Last Pacemaker Check QUESTION #4 FULL TEXT: You/Your Family Experience fever (hyperthermia) with Anesthesia Last Oral Intake Last Oral intake: Last Oral Intake NPO since 00:00 10/15/24 2200 Meds taken in AM with sips of No 10/15/24 2200 water? Meds patient instructed to take am of surgery PONV PONV - rn psychiatric: PONV - rn psychiatric Female HX of Motion Sickness HX of N/V After Surgery Non-Smoker Duration of Surgery greater than 60 minutes Number of Risk Factors PONV Score Height & Weight Height & Weight: Anesthesia: Height & Weight Height 5 ft 7 in 10/16/24 12:19 Weight: 54.2 kg 10/16/24 12:19 Body Mass Index (BMI) 18.7 10/16/24 12:19 Respiratory Assessment Respiratory Assessment - rn psychiatric: Respiratory Tract Infection Hx - rn psychiatric Hx Respiratory Tract Infection No 10/16/24 12:19 STOP Sleep Apnea STOP Sleep Apnea - rn psychiatric: STOP Sleep Apnea - rn psychiatric Hx Hypertension No 10/16/24 12:35 Hx Sleep Apnea No 10/14/24 20:46 CPAP BIPAP Do you snore loudly (louder No 10/14/24 20:46 than talking or can be heard Do you often feel tired/ No 10/14/24 20:46 fatigued/ sleepy during daytime? Has anyone observed you stop No 10/14/24 20:46 breathing during sleep? STOP Results Negative 10/14/24 20:46 QUESTION #5 FULL TEXT : Do you snore loudly (louder than talking or can be heard through closed doors)? Tobacco Use History Tobacco Use History - rn psychiatric: Tobacco Use History - rn psychiatric Tobacco Use Smoking Status Former smoker 10/14/24 20:46 Hx Tobacco Use Yes 10/14/24 20:46 Years Smoking Packs Smoked per Day Smoking Cessation Date was Yes - quit smoking within 15 10/14/24 20:46 within the last 15 years years Hx Smoking Cessation Date Hx Smoking Cessation Counseling Hematologic Medial History Hematologic Hx - rn psychiatric: Hematologic Medical Hx - funnel coater Hx of Blood Transfusion Yes 10/14/24 20:46 Hx of Transfusion in last 3 Yes 10/14/24 20:46 Months Date of Last Transfusion (if 10/1410/14/24 20:46 within last 3 months) Ever experience any problems No 10/14/24 20:46 with transfusion(s)? Specify any problems Hx of Preganancy in last 3 N/A 10/14/24 20:46 Months Nurse Filling Out Transfusion [email or web address] 10/14/24 20:46 & Questions: Date: 10/14/24 10/14/24 20:46 Time: 20:48 10/14/24 20:46 Patient unable to answer at this time (ie. confused, unrespo /Reproduction History /Reproductive History - rn psychiatric: /Reproductive Hx- rn psychiatric Hx Now No 10/16/24 12:19 Gestational Age (in weeks): EDC: Hx Hx Para Hx Section SAB No 10/16/24 12:19 Active Medications Active Medications: Current Medications Generic Name Dose Route Start Last Admin Trade Name Freq PRN Reason Stop Dose Admin Acetaminophen 650 mg 10/14/24 20:52 10/15/24 14:40 Acetaminophen 325 Mg Tablet PO 650 mg Q6H PRN PRN Administration Pain 1-10 Or Fever >100.7 Al Hydroxide/Mg Hydroxide 30 ml 10/15/24 18:23 10/15/24 19:08 Mag Hydrox/Al Hydrox/Simeth 30 Ml Udc PO 30 ml Q6H PRN PRN Administration HEARTBURN OR INDIGESTION Albuterol Sulfate 2.5 mg 10/14/24 20:52 Albuterol 2.5 Mg/3 Ml Vial.Neb. INHALATION Q2H PRN PRN SOB &/OR WHEEZING Albuterol/Ipratropium 3 ml 10/14/24 20:55 10/16/24 07:20 Ipratropium/Albuterol Sulfate 3 Ml Ampul.Neb INHALATION 3 ml Q6HWA.RT NASRA Administration Artificial Tears 1 drp 10/15/24 22:00 10/16/24 08:30 Carboxymethylcellulose Sodium 15 Ml Ophth Drops EACH EYE 1 drp BID NASRA Administration Atorvastatin Calcium 10 mg 10/14/24 22:00 10/15/24 21:07 Atorvastatin Calcium 10 Mg Tablet PO 10 mg 2200 NASRA Administration Budesonide 0.5 mg 10/14/24 20:55 10/16/24 07:20 Budesonide Respules 0.5 Mg/2 Ml Ampul.Neb. INHALATION 0.5 mg Q12H.RT NASRA Administration Fluticasone Propionate 1 spray 10/15/24 07:52 Fluticasone 0.05% 1 [place] Nasal.Sry NASAL DAILY PRN nasal congestion Sodium Chloride 1,000 mls @ 15 mls/hr 10/16/24 13:10 10/16/24 13:07 IV 10/22/24 02:29 15 mls/hr .Q48H NASRA Administration Protocol Melatonin 3 mg 10/14/24 20:52 Melatonin 3 Mg Tablet PO QHS PRN PRN INSOMNIA Ondansetron HCl 4 mg 10/14/24 20:52 Ondansetron 4 Mg/2 Ml Vial IV Q8H PRN PRN NAUSEA/VOMITING Senna/Docusate Sodium 2 tablet 10/14/24 22:00 10/16/24 08:34 Senna/Docusate Sodium 1 Tablet PO Not Given BID NASRA Sodium Chloride 10 - 40 ml 10/14/24 21:08 10/15/24 00:37 0.9% Saline Lock 10 Ml Syringe IV 20 ml UD PRN Administration SALINE FLUSH Timolol Maleate 1 drp 10/14/24 22:00 10/16/24 08:32 Timolol 0.5% 5ml Opth.Btl EACH EYE 1 drp BID NASRA Administration PFSH Medical History Pneumothorax Asthma exacerbation in COPD Prostate CA COPD (chronic obstructive pulmonary disease) Glaucoma High cholesterol Home Medications ?Medication ?Instructions ?Recorded ?Last Taken ?Type artificial tears(hypromellose) 0.3 1 drp EACH EYE BID DRY EYE 08/25/22 10/13/24 History % eye drops aspirin 81 mg tablet,delayed 81 mg PO DAILY HEART HEALTH 08/25/22 10/13/24 History release lovastatin 40 mg tablet 40 mg PO DAILY CHOLESTEROL 08/25/22 10/13/24 History timolol maleate 0.5 % eye drops 1 drp EACH EYE BID GLUCOMA 08/25/22 10/13/24 History albuterol sulfate 90 mcg/actuation 2 puff inhalation Q6H PRN Dyspnea 12/13/22 01/05/24 History aerosol inhaler docusate sodium 100 mg capsule 100 mg PO QHS 12/13/22 10/13/24 History (Colace) fluticasone fur. 200 mcg-umeclid 1 inh inhalation 0 12/13/22 10/13/24 History 62.5 mcg-vilant 25 mcg inhalat.powder (Trelegy Ellipta) fluticasone propionate 50 1 spray intranasal DAILY PRN nasal 12/13/22 01/05/24 History mcg/actuation nasal congestion spray,suspension guaifenesin 600 mg tablet, 600 mg PO BID 12/13/22 10/13/24 History extended release 12 hr (Mucinex) acetaminophen 500 mg tablet 500 - 1,000 mg PO Q6H PRN pain 10/14/24 Unknown History loratadine 10 mg tablet (Allergy 10 mg PO DAILY 10/14/24 10/13/24 History Relief (loratadine)) vitamins A,C,V-hvjq-mhlawn 2,148 2 tab PO BID 10/14/24 10/13/24 History mcg-113 mg-45 mg-17.4 mg tablet (Eye Multivitamin) Allergy/AdvReac Type Severity Reaction Status Date / Time propofol Allergy Severe Other Verified 10/14/24 15:24 Family History Other COPD (chronic obstructive pulmonary disease) Heart disease Hypertension Surgical History H/O radical prostatectomy Social History household members: family Smoking Status: Former smoker alcohol intake: former Review of Systems (Anesthesia) ROS Narrative System reviewed and no additional complaints, except as documented. Physical Exam Const oriented x3 Orientation / Consciousness: awake HEENT Teeth and Gingiva: poor dentition Throat: uvula midline Eyes Cornea: cornea normal Resp clear to auscultation bilaterally Cardio regular rate and regular rhythm
--- NOTE | 2024-10-16 13:46 | PCM.OPRPT ---
Operative Report (Standard) Operative Information Date of Procedure: 10/16/24 Pre-Operative Diagnosis: Gross hematuria Post-Operative Diagnosis: Bleeding from the bladder neck Surgery/Procedure Performed: Cystoscopy evacuation of blood clots and cauterization of bleeding oxidation operator: No Type of Anesthesia: General RN Documented Start/Stop Times: Operation Date: 10/16/24 15:00 Case Time Into Pre-Op 10/16/24 12:40 Anesthesia Start 10/16/24 13:13 Into Room 10/16/24 13:13 Procedure End 10/16/24 13:45 Procedure Start Time: 13:50 Procedure Stop Time: 13:46 Select all DRAINS/GRAFTS/IMPLANTS that apply: None Estimated Blood Loss: 0 Specimen collected: No Description of surgery: This is a 79-year-old male presented to the hospital with a hemoglobin of 4.8 he had been bleeding for quite some time and is slowly getting weaker he was transfused and stabilized this point and taken back to the operative, he underwent anesthesia went into the bladder with a 24 [place]ian noncontinuous flow Olympus bipolar resectoscope once inside I got inside the bladder there is a bunch of blood clots these were Ellik doubt once I got all the clots cleared out then I inspected the bladder carefully I do not see any stones I do not see any tumors he had a prior prostatectomy the bladder prostate then removed and right at the bladder neck there was a blood vessel that was pumping and bleeding I then cauterized this to stop the bleeding I then checked around again to see if there is any sort of other source of bleeding I did not see any blood coming from the left or the right ureteral orifice did not see any other bleeding from anywhere else in the bladder some mild irritation of the bladder lining but no source of bleeding besides the bladder neck so 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
--- NOTE | 2024-10-16 15:55 | PCM.POST.ANE ---
Anesthesia: Postop Eval I Current Vital Signs Temperature: 97.7 F Pulse Rate: 76 Blood Pressure: 132/82 Respiratory Rate: 16 Pulse Ox: 100 Assessment Airway patent: Yes Spontaneous unlabored respirations: Yes nausea: No Vomiting: No Anesthesia Complication: No Fluid Hydration Crystalloid volume administer (ml): 0 Total IV fluid infused: 0 Progress Note Anesthesia document: Postop Eval 1 completed: Yes
--- NOTE | 2024-10-16 16:02 | CASEMGMT ---
SHARDA JAMESON NOTE: Pt ambulated 230 ft w/therapy today. SHARDA CM to room. Pt resting in bed, @ bedside. Introduced self and role. Discussed discharge planning. Initially pt stated he was not interested in HHC, but spoke up and told pt she really feels like he needs therapy to build up his strength, stating he has been declining and is more weak and she feels like it would be very beneficial to him. Discussed homebound criteria for HHC and both and pt feel like he will be homebound for awhile after discharging home as he recovers. Pt states, however, he does not want HHC coming out as soon as he gets home, and was agreeable to having them come out 48 hrs after discharge. SHARDA JAMESON did also mention option of OP therapy, but prefers HHC 1st and pt agreeable. They prefer [facility] as 1st choice and decline list of other HHC options unless [facility] unable to accept. Call placed to Mary @ [facility] and referral made. Awaiting response. Mary was made aware pt requests 48 hrs after discharge before SOC. Discussed home O2. Pt has portable O2 tank from home in his room to go home and he has a pulse ox @ home. They voice no further discharge needs/questions/concerns at this time. Toshia SPIVEY RN, CM
--- NOTE | 2024-10-16 17:02 | POSTOPAN2_ITS ---
Anesthesia Postop Eval I Sum Postop Eval Completion status Anesthesia document: Postop Eval 1 completed: Yes Anesthesia Postop Eval I Summary Anesthesia Postop Eval I Summary: Anesthesia Postop Eval I: Assessment Summary Airway patent Yes 10/16/24 17:02 TITLE DEPARTMENT MANAGER.CSIR Spontaneous unlabored Yes 10/16/24 17:02 TITLE DEPARTMENT MANAGER.CSIR respirations Mental status nausea No 10/16/24 17:02 TITLE DEPARTMENT MANAGER.CSIR Vomiting No 10/16/24 17:02 TITLE DEPARTMENT MANAGER.CSIR Anesthesia Postop Eval I: Fluid Summary Crystalloid volume administer 0 10/16/24 17:02 TITLE DEPARTMENT MANAGER.CSIR (ml) Colloids volume administered ( ml) Blood Product volume administered (ml) Total IV fluid infused 0 10/16/24 17:02 TITLE DEPARTMENT MANAGER.CSIR Anesthesia Postop Eval I: Summary Notes Anesthesia Complication No 10/16/24 17:02 TITLE DEPARTMENT MANAGER.CSIR Anesthesia Complication Comment: Post-operative progress note Anesthesia: Postop Eval II Evaluation Mental status: Awake Pain Level: 1 nausea: No Vomiting: No
--- NOTE | 2024-10-16 17:02 | PCM.POSTANE2 ---
Anesthesia Postop Eval I Sum Postop Eval Completion status Anesthesia document: Postop Eval 1 completed: Yes Anesthesia Postop Eval I Summary Anesthesia Postop Eval I Summary: Anesthesia Postop Eval I: Assessment Summary Airway patent Yes 10/16/24 17:02 HOTEL FRONT DESK CLERK.CSIR Spontaneous unlabored Yes 10/16/24 17:02 HOTEL FRONT DESK CLERK.CSIR respirations Mental status nausea No 10/16/24 17:02 HOTEL FRONT DESK CLERK.CSIR Vomiting No 10/16/24 17:02 HOTEL FRONT DESK CLERK.CSIR Anesthesia Postop Eval I: Fluid Summary Crystalloid volume administer 0 10/16/24 17:02 HOTEL FRONT DESK CLERK.CSIR (ml) Colloids volume administered ( ml) Blood Product volume administered (ml) Total IV fluid infused 0 10/16/24 17:02 HOTEL FRONT DESK CLERK.CSIR Anesthesia Postop Eval I: Summary Notes Anesthesia Complication No 10/16/24 17:02 HOTEL FRONT DESK CLERK.CSIR Anesthesia Complication Comment: Post-operative progress note Anesthesia: Postop Eval II Evaluation Mental status: Awake Pain Level: 1 nausea: No Vomiting: No
[2024-10-16] MEDS: Atorvastatin Calcium 10 MG Tablet PO (21:54)
[2024-10-16] MEDS: Senna/Docusate Sodium 1 Tablet 2 TABLET PO (21:54)
[2024-10-17 02:16] VITALS: BMI 19.4
[2024-10-17] MEDS: 0.9% Saline Lock 10 ML Syringe IV (02:36)
[2024-10-17 03:08] VITALS: BP 115/71; PULSE 75; RESP 16; TEMP 36.7; O2SAT 100
[2024-10-17 07:06] VITALS: PULSE 82; RESP 18; O2SAT 99
[2024-10-17] MEDS: Budesonide Respules 0.5 MG/2 ML AMPUL.NEB. INHALATION (07:20)
[2024-10-17] MEDS: Ipratropium/Albuterol Sulfate 3 ML AMPUL.NEB INHALATION ×2 (07:20→12:21)
[2024-10-17 07:56] LABS: Hematocrit 31.1 % (40-54); Hemoglobin 9.5 g/dL (13.0-16.5); Mean Corp Hgb Conc 30.5 g/dL (32-36); Mean Corpuscular Hgb 26.1 pg (27.0-32.0); Mean Corpuscular Volume 85.4 fL (80-94); Mean Platelet Vol. 9.8 fl (6.2-12.0); Platelet Count 192 K/mm3 (150-450); RBC Distribution Width CV 18.6 % (11.6-14.6); Red Blood Count 3.64 M/mm3 (4.6-6.2); White Blood Count 6.7 K/mm3 (4.4-11.0)
[2024-10-17 08:26] LABS: Anion Gap 4 (5-15); BUN 13 mg/dL (7-18); BUN/Creat Ratio 19.1 RATIO (10-20); Calcium,Total 9.2 mg/dL (8.5-10.1); Chloride 107 mmol/L (98-107); Creatinine, Serum 0.68 mg/dL (0.70-1.30); EST Glomerular Filtration Rate 119 mL/min (>60); Est Glom Filt Rate - Afr Amer 144 mL/min (>60); Estimated Creatinine Clearance 58.75 ml/min; Glucose 91 mg/dL (74-106); Potassium 4.6 mmol/L (3.5-5.1); Sodium Level 135 mmol/L (136-145)
[2024-10-17 08:45] VITALS: BP 113/75; PULSE 80; RESP 17; TEMP 37.1; O2SAT 100
[2024-10-17] MEDS: Senna/Docusate Sodium 1 Tablet 2 TABLET PO (09:57)
[2024-10-17] MEDS: Timolol 0.5% 5ML OPTH.BTL 1 DRP EACH EYE (09:57)
[2024-10-17] MEDS: CARBOXYMETHYLCELLULOSE SODIUM 15 ML OPHTH DROPS 1 DRP EACH EYE (09:58)
--- NOTE | 2024-10-17 10:49 | DS.PCM_ITS ---
Providers Date of Admission: 10/14/24 Date of Discharge: 10/17/24 Primary Care Physician: Dr. Rosendo Lopez MD Consultations 10/14/24 20:52 Consult: Urology Routine Consulting Provider: Dennis Braun Reason for Consult: hematuria, symptomatic anemia EMERGENT Consult: No MD Notified: Yes Date Notified: 10/14/24 Time Notified: 20:40 Method of Notification: Verbal Reason For Visit: ABLA SUSPECT 2/2 URINARY SOURCE Diagnosis Discharge Diagnosis (1) Symptomatic anemia: Status: Acute Code(s): D64.9 - Anemia, unspecified (2) Gross hematuria: Status: Acute Code(s): R31.0 - Gross hematuria (3) Painless hematuria: Status: Acute Code(s): R31.9 - Hematuria, unspecified Medications at Discharge Home Medications artificial tears(hypromellose) 0.3 % eye drops 1 drp EACH EYE BID DRY EYE 08/25/22 aspirin 81 mg tablet,delayed release 81 mg PO DAILY HEART HEALTH 08/25/22 lovastatin 40 mg tablet 40 mg PO DAILY CHOLESTEROL 08/25/22 timolol maleate 0.5 % eye drops 1 drp EACH EYE BID GLUCOMA 08/25/22 albuterol sulfate 90 mcg/actuation aerosol inhaler 2 puff inhalation Q6H PRN Dyspnea 12/13/22 docusate sodium 100 mg capsule (Colace) 100 mg PO QHS 12/13/22 fluticasone fur. 200 mcg-umeclid 62.5 mcg-vilant 25 mcg inhalat.powder (Trelegy Ellipta) 1 inh inhalation 212912/13/22 fluticasone propionate 50 mcg/actuation nasal spray,suspension 1 spray intranasal DAILY PRN nasal congestion 12/13/22 guaifenesin 600 mg tablet, extended release 12 hr (Mucinex) 600 mg PO BID 12/13/22 acetaminophen 500 mg tablet 500 - 1,000 mg PO Q6H PRN pain 10/14/24 loratadine 10 mg tablet (Allergy Relief (loratadine)) 10 mg PO DAILY 10/14/24 vitamins A,C,I-etas-cmxzlw 2,148 mcg-113 mg-45 mg-17.4 mg tablet (Eye Multivitamin) 2 tab PO BID 10/14/24 Hospital Course Operations None Procedures EKG and - (CT abdomen pelvis, cystoscopy) Summary of Care Provided Minutes Spent on Discharge: 35 Hospital Course: Patient is an 79-year-old male who presented [facility] ED on 10/14/2024 with worsening weakness and dark urine. Hospital course as noted below. Patient discharged home with home health care in stable condition on 10/17. 1. Acute symptomatic blood loss anemia secondary to painless hematuria ? Urology followed. Hemoglobin 4.8 on admit, prior baseline of 14-15. UA with gross hematuria. CT abdomen pelvis on admit unremarkable. Denied change in stools. Improved to hemoglobin 6.6 after 2 units of blood, given another 2 units of blood on 10/15 with hemoglobin improved to 9.2. Cystoscopy on 10/16 showed bleeding from a vessel at the bladder neck possibly secondary to prior treatment for prostate cancer, no bladder mass noted so no concern for cancer. Vessels cauterized and patient passing clear urine on 10/17. Hemoglobin remained stable between 9-10 for remainder of hospitalization. Okay for discharge home on 10/17 with close outpatient follow-up with urology. 2. Acute debility ? PT/OT/case management followed. Patient reported worsening debility over the past few months with poor p.o. intake and some weight loss. No evidence of new cancer as noted above. Stable for discharge home with home health care on 10/17. 3. 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 No inpatient needs, outpatient follow-up. 4. History of COPD with chronic respiratory failure ? Wears 2 L nasal cannula at baseline. Stable on home 2 L and breathing comfortably, not in acute exacerbation. Continue home inhalers. 5. History of prostate cancer ? With history of radical prostatectomy. 6. Underweight BMI ? Nutrition followed. BMI 18 on admit. Did not meet criteria for nutrition. Treated with protein supplementation with meals while inpatient, encouraged increased protein intake regularly on discharge. Total clinical time spent by myself addressing the patient's medical issues, reviewing all the data, and collaborating with patient's care team: 35 minutes. Physical Exam Const alert, oriented x3 and no apparent distress Constitutional Narrative: Elderly male, thin, energy improved from admission, sitting back comfortably in bed, conversing normally, in no acute distress. General Appearance: cooperative and comfortable HEENT normocephalic, head/scalp atraumatic, hearing grossly normal bilaterally, nasal mucous membranes and turbinates normal and moist oral mucous membranes Eyes PERRL, EOMs intact bilaterally and conjunctivae normal Neck full ROM Chest inspection of chest normal Resp normal respiratory effort, normal air movement, no use of accessory muscles and clear to auscultation bilaterally Cardio regular rate, regular rhythm, no murmurs and peripheral pulses 2+ throughout GI normal to inspection, nondistended, normoactive bowel sounds, soft to palpation, non-tender and non-distended Back/Spine normal ROM Extremity normal to inspection, full ROM and no pedal edema Skin no rashes or lesions noted Neuro moves all extremities and no focal motor deficits Speech: speech normal Psych mental status grossly normal Weight / BMI Weight Weight: 56.4 kg Body Mass Index (BMI) 19.4 ABG / Lab / Microbiology Data 10/17/24 07:40 10/17/24 07:40 Laboratory: Laboratory Results - last 24 hr 10/17/24 07:40: WBC 6.7, RBC 3.64 L, Hgb 9.5 L, Hct 31.1 L, MCV 85.4, MCH 26.1 L , MCHC 30.5 L, RDW Std Deviation 57.0 H, RDW Coeff of Samira 18.6 H, Plt Count 192, MPV 9.8, Sodium 135 L, Potassium 4.6, Chloride 107, Carbon Dioxide 25.0, Anion Gap 4 L, BUN 13, Creatinine 0.68 L, Estim Creat Clear Calc 58.75, Est GFR (MDRD) Af Amer 144, Est GFR (MDRD) Non-Af 119, BUN/Creatinine Ratio 19.1, Glucose 91, Calcium 9.2 D/C Instructions DC O2, CPAP, BIPAP Needs Home O2 Discharge instructions: No Meaningful Use Info Meaningful Use Meaningful Use Diagnoses (Choose all that apply): None applicable Ischemic Stroke Statin Dosing Therapy Reference: STATIN DOSE THERAPY REFERENCE: * Patients > 75 years receive moderate or high dose statin therapy. * Patients 75 years or YOUNGER should receive HIGH intensity statin dose unless contraindicated. You will be required to document reason for non-treatment if statin daily dose does not meet guidelines. HIGH DOSE STATIN THERAPY DAILY Atorvastatin > than or = to 40 mg Rosuvastatin > than or = to 20 mg Amlodipine + Atorvastatin > than or = to 2.5/40 mg Ezetimibe + Simvastatin 10/80 mg Simvastatin 80mg Discharge Plan Admission Admit Date/Time: 10/14/24 20:06 Primary Reason for Your Visit: dark urine and fatigue Attending Provider: Blayne Trejo Primary Care Provider: Rosendo Lopez Consulting Providers: Kate Castillo; Dennis Braun Instructions Additional Instructions / Restrictions: Please have repeat blood count drawn in 5 to 7 days to ensure they remain stable. Follow-up with urology in the office as needed. Discharge Orders/Prescriptions Prescriptions: Continued lovastatin 40 mg tablet 40 mg PO DAILY aspirin 81 mg Tablet,Delayed Release (Dr/Ec) 81 mg PO DAILY timolol maleate 0.5 % drops 1 drp EACH EYE BID artificial tears(hypromellose) 0.3 % Drops 1 drp EACH EYE BID docusate sodium [Colace] 100 mg Capsule 100 mg PO QHS albuterol sulfate 90 mcg/actuation Hfa Aerosol Inhaler 2 puff INHALATION Q6H PRN (Reason: Dyspnea) fluticasone propionate 50 mcg/actuation [place],Suspension 1 spray INTRANASAL DAILY PRN (Reason: nasal congestion) Rx Instructions: administer into each nostril guaifenesin [Mucinex] 600 mg Tablet Extended Release 12hr 600 mg PO BID Trelegy Ellipta 200-62.5-25 mcg Blister With Device 1 inh INHALATION 2130 Eye Multivitamin 2,148 mcg-113 mg-45 mg-17.4mg tablet 2 tab PO BID Rx Instructions: administer with AM and PM meals loratadine [Allergy Relief (loratadine)] 10 mg tablet 10 mg PO DAILY acetaminophen 500 mg tablet 500 - 1,000 mg PO Q6H PRN (Reason: pain) Other Ambulatory Orders: CBC-Complete Blood Cnt No Diff (Routine) Timeframe: 5 Days Facility: [facility] - Location: Laboratory Ordered By: Dr. Blayne Trejo Referrals / Follow Up: Dennis Braun MD [Med Staff - Active Staff] - Rosendo Lopez MD [Primary Care Provider] - Disposition Disposition (needs filled in before D/C Order can be placed): Home Health Service Charges/Coding Visit Charges Inpatient E&M: 46066 Disch Hosp >30min
--- NOTE | 2024-10-17 10:49 | CASEMGMT ---
Addendum entered by Nathan Irvin 10/17/24 14:06: Pt and deny having further discharge needs/concerns. Addendum entered by Ntahan Irvin 10/17/24 13:59: Pt currently has O2 @ home w/orders to wear 1-5 L/M. Home O2 amb testing has been completed today. Pt does not need any O2 @ rest at this time, but does need to wear O2 @ 3 L/M w/exertion. Pt and made aware. Original Note: SHARDA JAMESON note: Mary @ [facility] states they are able to accept pt w/SOC slated for Monday. Pt made aware and is appreciative. Pt sitting up in chair, on RA, states is ready to go home, denies having any further discharge needs/concerns. Toshia SPIVEY RN, CM
[2024-10-17 11:43] VITALS: O2SAT 82; O2SAT 86; O2SAT 90; O2SAT 97
[2024-10-17 12:20] VITALS: PULSE 100; RESP 18
--- NOTE | 2024-10-17 13:48 | PHA.DC.MR.R ---
[facility] Recon[facility] Service has performed discharge medication reconciliation for this patient. No new medications at time of discharge medication review. Medications reviewed are form previously reported home medications. The patient's discharge medication list was reviewed for discrepancies and discrepancies were resolved. Medications at Discharge Home Medications artificial tears(hypromellose) 0.3 % eye drops 1 drp EACH EYE BID DRY EYE 08/25/22 aspirin 81 mg tablet,delayed release 81 mg PO DAILY HEART HEALTH 08/25/22 lovastatin 40 mg tablet 40 mg PO DAILY CHOLESTEROL 08/25/22 timolol maleate 0.5 % eye drops 1 drp EACH EYE BID GLUCOMA 08/25/22 albuterol sulfate 90 mcg/actuation aerosol inhaler 2 puff inhalation Q6H PRN Dyspnea 12/13/22 docusate sodium 100 mg capsule (Colace) 100 mg PO QHS 12/13/22 fluticasone fur. 200 mcg-umeclid 62.5 mcg-vilant 25 mcg inhalat.powder (Trelegy Ellipta) 1 inh inhalation 212912/13/22 fluticasone propionate 50 mcg/actuation nasal spray,suspension 1 spray intranasal DAILY PRN nasal congestion 12/13/22 guaifenesin 600 mg tablet, extended release 12 hr (Mucinex) 600 mg PO BID 12/13/22 acetaminophen 500 mg tablet 500 - 1,000 mg PO Q6H PRN pain 10/14/24 loratadine 10 mg tablet (Allergy Relief (loratadine)) 10 mg PO DAILY 10/14/24 vitamins A,C,H-bmpc-ruglvs 2,148 mcg-113 mg-45 mg-17.4 mg tablet (Eye Multivitamin) 2 tab PO BID 10/14/24
[2024-10-17 14:29] VITALS: BP 122/82; PULSE 97; RESP 18; TEMP 37.2; O2SAT 99
== END 2024-10-17 15:08 | disposition home health service (06) | DRG 663 ==
LOC: ED 18:32 → ICU 19:07 → PCU 10-15 19:00
PROVIDERS: Family Medicine; Urology; Admitting Provider Internal Medicine; Emergency Provider Emergency Medicine; PCP Family Medicine; Referring Provider Internal Medicine; Visit Provider Hospitalist
PROC: 0W3R8ZZ Control Bleeding in Genitourinary Tract, Via Natural or Artificial Opening Endoscopic (ICD-10-PCS; CPT 52352; principal; 2024-10-16 14:50)
DX: N30.41 Irradiation cystitis with hematuria (principal); D62 Acute posthemorrhagic anemia; J96.10 Chronic respiratory failure, unspecified whether with hypoxia or hypercapnia; Z68.1 Body mass index [BMI] 19.9 or less, adult; Z99.81 Dependence on supplemental oxygen; J44.9 Chronic obstructive pulmonary disease, unspecified; I72.8 Aneurysm of other specified arteries; R63.4 Abnormal weight loss; E78.00 Pure hypercholesterolemia, unspecified; R31.0 Gross hematuria; R53.81 Other malaise; R63.8 Other symptoms and signs concerning food and fluid intake; Z79.51 Long term (current) use of inhaled steroids; Z79.82 Long term (current) use of aspirin; Z79.899 Other long term (current) drug therapy; Z85.46 Personal history of malignant neoplasm of prostate; Z87.891 Personal history of nicotine dependence
CPT/HCPCS: 36415; 74177; 80048; 80076; 81001; 83605; 83690; 83735; 84100; 85025; 85027; 85610; 85730; 86850; 86900; 86901; 86920; 86922; 93005; 94640; 94668; 94762; 97162; 97166; 99284; P9016; Q9967; A4216; C1769; J2310; J2405

== ENCOUNTER → 2024-10-24 | Outpatient (CLI) | payer MEDICARE, SELFPAY ==
[2023-03-10 07:11] VITALS: BMI 20.2
[2024-10-24 15:05] LABS: Hematocrit 33.7 % (40-54); Mean Corp Hgb Conc 29.7 g/dL (32-36); Mean Corpuscular Hgb 26.2 pg (27.0-32.0); Mean Corpuscular Volume 88.2 fL (80-94); Mean Platelet Vol. 9.8 fl (6.2-12.0); Platelet Count 255 K/mm3 (150-450); RBC Distribution Width CV 18.4 % (11.6-14.6); RBC Distribution Width SD 58.9 fl (35.1-43.9); Red Blood Count 3.82 M/mm3 (4.6-6.2); White Blood Count 5.9 K/mm3 (4.4-11.0)
== END | disposition home or self-care (01) ==
PROVIDERS: PCP Family Medicine; Referring Provider Hospitalist; Visit Provider Hospitalist
DX: D64.9 Anemia, unspecified (principal)
CPT/HCPCS: 36415; 85027

== ENCOUNTER 2025-03-03 11:21 | Inpatient (IN) | payer MEDICARE, SELFPAY ==
[2023-03-10 07:11] VITALS: BMI 20.2
[2025-03-03] VITALS (12 sets, daily range): BP systolic 102–139; BP diastolic 69–85; PULSE 87–99; RESP 16–21; TEMP 36.2–37.4; O2SAT 95–100; BMI 19.8; BMI 20.4
--- NOTE | 2025-03-03 11:40 | CT_ITS ---
PROCEDURE: CTA ABD/PELVIS W/WO CONTRAST 03/03/2025 REASON FOR EXAM: GI BLEED Rectal bleeding. History of prostate cancer and radiation therapy. TECHNIQUE: CTA ABD/PELVIS W/WO CONTRAST Multiplanar Sagittal and Coronal images were obtained. CONTRAST: Isovue-300 VOLUME: 100 mL One or more dose reduction techniques were used (e.g., Automated exposure control, adjustment of the mA and/or kV according to patient size, use of iterative reconstruction technique). RADIATION DOSE SUMMARY: CTDlvol: 24.5 mGy DLP: 300.66 mGycm COMPARISON: Prior study dated October 14, 2024. FINDINGS: Aorta: Moderate mixed calcified and soft plaque. No abdominal aortic aneurysm. Iliac Arteries: Scattered atherosclerotic plaque. No aneurysm or significant stenosis. 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 SMA: Unremarkable. SARA : Not visualized. Right Renal: Unremarkable Left Renal: Unremarkable. Extravascular Findings: Stable emphysematous changes with bullous formation in the lower lobes. Stable hepatic cysts. 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 Small gallstones along the dependent portion of the gallbladder lumen. Sigmoid diverticulosis. Status post prostatectomy. CT/CTA Abd/Pelvis W/WO Contrast IMPRESSION: Sigmoid diverticulosis. Status post prostatectomy. Stable hepatic cysts. Small gallstones. 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 Reading Location: [facility]
[2025-03-03 12:32] LABS: Hematocrit 22.4 % (40-54); Hemoglobin 7.0 g/dL (13.0-16.5); Immature Granulocytes Count 0.050 X10^3/uL (0.0-0.0); Mean Corp Hgb Conc 31.3 g/dL (32-36); Mean Corpuscular Volume 98.2 fL (80-94); Mean Platelet Vol. 9.7 fl (6.2-12.0); NRBC Flagged by Analyzer 0 % (0-5); Platelet Count 171 K/mm3 (150-450); RBC Distribution Width CV 17.6 % (11.6-14.6); RBC Distribution Width SD 63.5 fl (35.1-43.9); Red Blood Count 2.28 M/mm3 (4.6-6.2); White Blood Count 6.2 K/mm3 (4.4-11.0)
[2025-03-03 13:27] LABS: AST(SGOT) 26 U/L (<=37); Alanine Aminotransfer ALT/SGPT 14 U/L (<=46); Albumin, Serum 3.5 g/dL (3.4-4.8); Alkaline Phosphatase 54 U/L (40-129); Anion Gap 9 (5-15); BUN 30 mg/dL (4-19); BUN/Creat Ratio 41.4 RATIO (10-20); Calcium,Total 8.6 mg/dL (7.6-11.0); Carbon Dioxide 21.7 mmol/L (21.0-32.0); Chloride 106 mmol/L (98-108); Globulin 2.2 g/dL (2.2-4.2); Glucose 94 mg/dL (70-99); Potassium 4.7 mmol/L (3.3-5.1)
--- NOTE | 2025-03-03 13:35 | EX.ED.DYSGE1 ---
HPI History of Present Illness Chief Complaint: GI Bleed Narrative Narrative: Chief complaint and HPI: 79-year-old male with past medical history of COPD and prostate cancer status post radical prostatectomy and radiation presents for evaluation of GI bleed. Patient states for the past 3 days he has been having bloody bowel movements with clots. States that the bowel movements are dark in nature. Patient states that he has had a normal appetite although states that she feels he has had a poor appetite. Denies any fever, chills, shortness of breath, chest pain, abdominal pain, nausea, vomiting. Review of systems: See HPI Medications: As listed on the chart Allergies: As listed on the chart PFSH: Per chart Vital signs: As listed on the chart. Reviewed. Physical exam: Gen: A&O x3, NAD Head: Normocephalic, atraumatic Eyes: Conjunctiva clear ENT: Mildly dry mucous membranes Neck: Trachea midline, No JVD CV: RRR, no murmurs, no peripheral edema Resp: Lungs CTA BL, no w/r/c GI: Abd soft, non-distended, non-tender, no r/r/g Rectal: Normal external examination. No evidence of hemorrhoids or fissures. Normal tone and sensation. No masses, fluctuance, or tenderness. No pain out of proportion. + Black stool Musc: Full ROM, no deformity Skin: Warm, dry Neuro: Alert, oriented, grossly intact, sensation intact Psych: Cooperative, appropriate mood and affect [facility] Medical History Frequent ventricular premature beats PAC (premature atrial contraction) History of COPD Pneumothorax Asthma exacerbation in COPD Prostate CA COPD (chronic obstructive pulmonary disease) Glaucoma High cholesterol Medical History no medical history Home Medications ?Medication ?Instructions ?Recorded ?Last Taken ?Type artificial tears(hypromellose) 0.3 1 drp EACH EYE BID DRY EYE 08/25/22 03/02/25 History % eye drops aspirin 81 mg tablet,delayed 81 mg PO DAILY HEART HEALTH 08/25/22 02/26/25 History release lovastatin 40 mg tablet 40 mg PO DAILY CHOLESTEROL 08/25/22 03/02/25 History timolol maleate 0.5 % eye drops 1 drp EACH EYE BID GLUCOMA 08/25/22 03/03/25 History albuterol sulfate 90 mcg/actuation 2 puff inhalation Q6H PRN Dyspnea 12/13/22 01/05/24 History aerosol inhaler docusate sodium 100 mg capsule 100 mg PO QHS 12/13/22 03/02/25 History (Colace) fluticasone fur. 200 mcg-umeclid 1 inh inhalation 212912/13/22 03/02/25 History 62.5 mcg-vilant 25 mcg inhalat.powder (Trelegy Ellipta) fluticasone propionate 50 1 spray intranasal DAILY PRN nasal 12/13/22 01/05/24 History mcg/actuation nasal congestion spray,suspension guaifenesin 600 mg tablet, 600 mg PO BID 12/13/22 03/02/25 History extended release 12 hr (Mucinex) acetaminophen 500 mg tablet 500 - 1,000 mg PO Q6H PRN pain 10/14/24 Unknown History loratadine 10 mg tablet (Allergy 10 mg PO DAILY 10/14/24 03/02/25 History Relief (loratadine)) vitamins A,C,F-yemg-blrzok 2,148 2 tab PO BID 10/14/24 03/02/25 History mcg-113 mg-45 mg-17.4 mg tablet (Eye Multivitamin) Allergy/AdvReac Type Severity Reaction Status Date / Time propofol Allergy Severe Other Verified 03/03/25 11:23 Family History Other COPD (chronic obstructive pulmonary disease) Heart disease Hypertension Family History no significant family his Surgical History H/O radical prostatectomy Surgical History no surgical history Social History household members: family Smoking Status: Former smoker alcohol intake: former EXAM Physical Exam Const Vital Signs: 03/03/25 11:22 03/03/25 13:21 03/03/25 14:15 Temperature 98.3 F 98.8 F Temperature Source Oral Oral Pulse Rate 96 87 89 Respiratory Rate 18 18 21 H Blood Pressure 102/79 112/74 115/75 Blood Pressure Mean 86 86 88 Blood Pressure Source Monitor Pulse Ox 100 100 99 Oxygen Delivery Method Room Air 03/03/25 14:33 Temperature 99.2 F H Temperature Source Oral Pulse Rate 88 Respiratory Rate 19 H Blood Pressure 117/69 Blood Pressure Mean 85 Blood Pressure Source Monitor Pulse Ox 99 Oxygen Delivery Method Room Air MDM MDM MDM Narrative Medical decision making narrative: 79-year-old male with past medical history of COPD and prostate cancer status post radical prostatectomy and radiation presents for evaluation of GI bleed. Rectal exam revealed black stool. Differential diagnosis includes but is not limited to upper GI bleed, lower GI bleed, anemia, electrolyte abnormality, SHAILESH. Protocol GI bleed orders were placed in triage including labs and CTA abdomen and pelvis. I did add on a stool occult. IV Protonix ordered. I do agree with the labs that were ordered. CBC without leukocytosis. Hemoglobin 7. In September patient's hemoglobin was 10. He does have a history of anemia which is baseline appears to be around 10/9. 1 unit RBCs ordered. Platelets unremarkable. CMP unremarkable except for elevated BUN of 30. This is more consistent with an upper GI bleed. 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 No acute bleeding. Patient will warrant admission for likely upper GI bleed and endoscopy. Patient placed on Protonix drip. I did speak with Dr. Palacios, he agrees with the plan. Patient admitted to the hospitalist service. Patient confirmed understanding of the plan and treatment. Impression: 1. Upper GI bleed 2. Acute on chronic anemia secondary to #1 Lab Data Labs: Laboratory Results - last 24 hr 03/03/25 11:30 WBC 6.2 RBC 2.28 L Hgb 7.0 L Hct 22.4 L MCV 98.2 H MCH 30.7 MCHC 31.3 L RDW Std Deviation 63.5 H RDW Coeff of Samira 17.6 H Plt Count 171 MPV 9.7 Immature Gran % (Auto) 0.800 Neut % (Auto) 77.7 H Lymph % (Auto) 12.4 L [place] % (Auto) 7.3 Eos % (Auto) 1.6 Baso % (Auto) 0.2 Absolute Neuts (auto) 4.8 Absolute Lymphs (auto) 0.76 L Nucleated RBC % 0 Sodium 137 Potassium 4.7 Chloride 106 Carbon Dioxide 21.7 Anion Gap 9 BUN 30 H Creatinine 0.73 Est GFR (MDRD) Non-Af 92 BUN/Creatinine Ratio 41.4 H Glucose 94 Calcium 8.6 Total Bilirubin 0.41 AST 26 ALT 14 Alkaline Phosphatase 54 Total Protein 5.8 L Albumin 3.5 Globulin 2.2 Albumin/Globulin Ratio 1.6 Blood Type B POSITIVE Antibody Screen NEGATIVE Crossmatch See Detail Radiography Diagnostic Testing: Clinical Impression(s) from Imaging Studies Abdomen/Pelvis CTA 03/03/25 11:40 IMPRESSION: Sigmoid diverticulosis. Status post prostatectomy. Stable hepatic cysts. Small gallstones. 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 Reading Location: [facility] Discharge Plan Disposition Disposition: Acute Care Hospital [facility] Discharge Date/Time: 03/03/25 15:40
[2025-03-03] MEDS: Pantoprazole Sodium 40 MG in 0.9% Normal Saline (100mL MB+) 100 ML 300 MG IV (14:15)
--- NOTE | 2025-03-03 14:58 | PCM.HP.STD ---
HPI - General General Date of Admission: 03/03/25 Date of Service: 03/03/25 Chief Complaint: Rectal bleeding HPI Narrative JUSTIN HULL, is a 79-year-old male history of asthma and prostate cancer status post radical prostatectomy who presented to [facility] ED 03/03/2025 with concern for GI bleed. In the ED temp 98.3, pulse rate 96 with blood pressure 102/79. Respiratory rate 18 and pulse ox 100% on room air. CBC with white blood cell count of 6.2 and hemoglobin of 7.0 down from seems to be baseline of around 9-10. CMP with a BUN of 30 and a normal creatinine of 0.73. FOBT positive. CTA of abdomen and pelvis with no acute process. Hospitalist contacted for admission for GI bleed. Patient evaluated at bedside with significant other. Patient reports around 4 days ago he had some black diarrhea and it initially resolved and he had none Monday and Monday but then he began having multiple episodes of black stools starting yesterday and this morning there were dark congealed clots and when the toilet was flushed there would be bright red. Had 1 episode when he was in the waiting room with a mild to moderate amount but none since he has been back. Has been having some indigestion and somewhat poor p.o. intake and generalized weakness. Not necessarily having abdominal pain. No fevers or chills, has a lot of nasal congestion and has been having some headaches but he feels this is independent. Also has noticed some more shortness of breath when he has been getting up and moving around but notes that his oxygen saturation has been okay at home [facility] Medical History Pneumothorax Asthma exacerbation in COPD Prostate CA COPD (chronic obstructive pulmonary disease) Glaucoma High cholesterol Home Medications ?Medication ?Instructions ?Recorded ?Last Taken ?Type artificial tears(hypromellose) 0.3 1 drp EACH EYE BID DRY EYE 08/25/22 03/02/25 History % eye drops aspirin 81 mg tablet,delayed 81 mg PO DAILY HEART HEALTH 08/25/22 02/26/25 History release lovastatin 40 mg tablet 40 mg PO DAILY CHOLESTEROL 08/25/22 03/02/25 History timolol maleate 0.5 % eye drops 1 drp EACH EYE BID GLUCOMA 08/25/22 03/03/25 History albuterol sulfate 90 mcg/actuation 2 puff inhalation Q6H PRN Dyspnea 12/13/22 01/05/24 History aerosol inhaler docusate sodium 100 mg capsule 100 mg PO QHS 12/13/22 03/02/25 History (Colace) fluticasone fur. 200 mcg-umeclid 1 inh inhalation 2130 12/13/22 03/02/25 History 62.5 mcg-vilant 25 mcg inhalat.powder (Trelegy Ellipta) fluticasone propionate 50 1 spray intranasal DAILY PRN nasal 12/13/22 01/05/24 History mcg/actuation nasal congestion spray,suspension guaifenesin 600 mg tablet, 600 mg PO BID 12/13/22 03/02/25 History extended release 12 hr (Mucinex) acetaminophen 500 mg tablet 500 - 1,000 mg PO Q6H PRN pain 10/14/24 Unknown History loratadine 10 mg tablet (Allergy 10 mg PO DAILY 10/14/24 03/02/25 History Relief (loratadine)) vitamins A,C,S-jiwi-hyfvse 2,148 2 tab PO BID 10/14/24 03/02/25 History mcg-113 mg-45 mg-17.4 mg tablet (Eye Multivitamin) Allergy/AdvReac Type Severity Reaction Status Date / Time propofol Allergy Severe Other Verified 03/03/25 11:23 Family History Other COPD (chronic obstructive pulmonary disease) Heart disease Hypertension Surgical History H/O radical prostatectomy Social History household members: family Smoking Status: Former smoker alcohol intake: former ROS ROS Narrative General: Denies fever/chills HENT: Some nasal congestion and draining and headache,, denies sore throat EYES: Denies changes in vision Resp: Denies cough, has been having some shortness of breath mostly on exertion Cardiac: Denies chest pain GI: Some nausea and indigestion, diarrhea with clots and black watery stool : Denies changes in urination Extremity: Denies swelling MSK some generalized weakness Neuro: Denies any numbness/tingling Heme: Denies any bleeding or bruising Skin: Some chronic changes on shins Psychiatric: No complaints voiced Vital Signs Vital Signs Vital Signs: 03/03/25 11:22 03/03/25 13:21 03/03/25 14:15 Temperature 98.3 F 98.8 F Temperature Source Oral Oral Pulse Rate 96 87 89 Respiratory Rate 18 18 21 H Blood Pressure 102/79 112/74 115/75 Blood Pressure Mean 86 86 88 Blood Pressure Source Monitor Pulse Ox 100 100 99 Oxygen Delivery Method Room Air 03/03/25 14:33 Temperature 99.2 F H Temperature Source Oral Pulse Rate 88 Respiratory Rate 19 H Blood Pressure 117/69 Blood Pressure Mean 85 Blood Pressure Source Monitor Pulse Ox 99 Oxygen Delivery Method Room Air Weight Weight: 57.6 kg Body Mass Index (BMI) 19.8 Physical Exam Narrative General: Alert, oriented, no apparent distress HEENT: Atraumatic, normocephalic Eyes: Anicteric, normal conjunctiva, extraocular movements grossly intact Neck: Supple Respiratory: Clear to auscultation bilaterally, normal respiratory effort Cardiovascular: Regular rate and rhythm GI: Soft, nontender, nondistended Extremities: No edema Musculoskeletal: Moving all extremities Neuro: No overt focal neurological deficits Skin: No rashes appreciated, does have some chronic appearing changes lower extremities Psych: Cooperative Results Lab / Micro Data 03/03/25 11:30 03/03/25 11:30 Labs: Laboratory Results - last 24 hr 03/03/25 11:30: WBC 6.2, RBC 2.28 L, Hgb 7.0 L, Hct 22.4 L, MCV 98.2 H, MCH 30.7, MCHC 31.3 L, RDW Std Deviation 63.5 H, RDW Coeff of Samira 17.6 H, Plt Count 171, MPV 9.7, Immature Gran % (Auto) 0.800, Neut % (Auto) 77.7 H, Lymph % (Auto) 12.4 L, [place] % (Auto) 7.3, Eos % (Auto) 1.6, Baso % (Auto) 0.2, Absolute Neuts (auto) 4.8, Absolute Lymphs (auto) 0.76 L, Nucleated RBC % 0, Sodium 137, Potassium 4.7, Chloride 106, Carbon Dioxide 21.7, Anion Gap 9, BUN 30 H, Creatinine 0.73, Est GFR (MDRD) Non-Af 92, BUN/Creatinine Ratio 41.4 H, Glucose 94, Calcium 8.6, Total Bilirubin 0.41, AST 26, ALT 14, Alkaline Phosphatase 54, Total Protein 5.8 L, Albumin 3.5, Globulin 2.2, Albumin/Globulin Ratio 1.6, Blood Type B POSITIVE, Antibody Screen NEGATIVE, Crossmatch See Detail Micro: Microbiology 03/03/25 13:21 Stool Stool Occult Blood (JAE) - Final Occult Blood Positive Imaging Radiology Impression Abdomen/Pelvis CTA 03/03/25 11:40 IMPRESSION: Sigmoid diverticulosis. Status post prostatectomy. Stable hepatic cysts. Small gallstones. 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 Reading Location: [facility] Assessment & Plan Assessment/Plan (1) Blood in stool: PLAN: Plan # Concern for GI bleed - Elevated BUN hemoglobin of 7 down from baseline of around 9-10 and patient has been having indigestion and black stool with clots -Suspect upper GI bleed -Hemoccult positive - Patient typed and crossed and receiving 1 unit - Continue PPI drip -N.p.o. midnight - Trend H&H - GI consult -Hold aspirin given concern for acute bleed #Hx asthma/COPD -Continue home inhalers -Incentive spirometer # History of prostate cancer - With radical prostatectomy - Noted # Hyperlipidemia -Continue home statin # History of glaucoma -Continue eyedrops as able #DVT ppx: SCDs Kate Castillo MD Charges/Coding Visit Charges Inpatient E&M: 27037 Init Hosp L2
[2025-03-03] MEDS: Pantoprazole Sodium 80 MG in 0.9% Normal Saline (100mL Bag) 80 ML 10 MG CONT INF (15:12)
[2025-03-03] MEDS: 0.9% Normal Saline (1000mL) 1,000 ML 50 ML IV (17:08)
[2025-03-03 18:08] LABS: Hematocrit 25.2 % (40-54); Hemoglobin 8.0 g/dL (13.0-16.5)
[2025-03-03] MEDS: Budesonide Respules 0.5 MG/2 ML AMPUL.NEB. INHALATION (19:50)
--- NOTE | 2025-03-03 20:19 | CON.PCM.GI_ITS ---
HPI Consult Data Date of Consult: 03/04/25 HPI Narrative Reason for Consultation: GI bleed HPI Narrative: 79-year-old male history of asthma and prostate cancer status post radical prostatectomy who presented to [facility] ED 03/03/2025 with concern for GI bleed. His hemoglobin was down to 7.0, with a baseline around 10.. CMP with a BUN of 30 and a normal creatinine of 0.73. FOBT positive. CTA of abdomen and pelvis with no acute process. He does admit to around 4 days ago he had some black diarrhea and it initially resolved and he had none Monday and Monday but then he began having multiple episodes of black stools starting yesterday and this morning there were dark congealed clots and when the toilet was flushed there would be bright red. [facility] Medical History Frequent ventricular premature beats PAC (premature atrial contraction) History of COPD Pneumothorax Asthma exacerbation in COPD Prostate CA COPD (chronic obstructive pulmonary disease) Glaucoma High cholesterol Medical History no medical history Home Medications ?Medication ?Instructions ?Recorded ?Last Taken ?Type artificial tears(hypromellose) 0.3 1 drp EACH EYE BID DRY EYE 08/25/22 03/02/25 History % eye drops aspirin 81 mg tablet,delayed 81 mg PO DAILY HEART HEAL TH 08/25/22 02/26/25 History release lovastatin 40 mg tablet 40 mg PO DAILY CHOLESTEROL 1 03/02/25 History timolol maleate 0.5 % eye drops 1 drp EACH EYE BID GLU COMA 08/25/22 03/04/25 History albuterol sulfate 90 mcg/actuation 2 puff inhalation Q 6H PRN Dyspnea 12/13/22 01/05/24 History aerosol inhaler docusate sodium 100 mg capsule 100 mg PO QHS 12/13/22 03/02/25 History (Colace) fluticasone fur. 200 mcg-umeclid 1 inh inhalation 212912/13/22 03/02/25 History 62.5 mcg-vilant 25 mcg inhalat.powder (Trelegy Ellipta) fluticasone propionate 50 1 spray intranasal DAILY PRN nasal 12/13/22 01/05/24 History mcg/actuation nasal congestion spray,suspension guaifenesin 600 mg tablet, 600 mg PO BID 12/13/22/02/19 History extended release 12 hr (Mucinex) acetaminophen 500 mg tablet 500 - 1,000 mg PO Q6H PRN pain 10/14/24 Unknown History loratadine 10 mg tablet (Allergy 10 mg PO DAILY 03/02/25 History Relief (loratadine)) vitamins A,C,G-engk-iqmggx 2,148 2 tab PO BID 10/14/24 03/02/25 History mcg-113 mg-45 mg-17.4 mg tablet (Eye Multivitamin) Allergy/AdvReac Type Severity Reaction Status Date / Time propofol Allergy Severe Other Verified 03/03/25 11:23 Family History Other COPD (chronic obstructive pulmonary disease) Heart disease Hypertension Family History no significant family his Surgical History H/O radical prostatectomy Surgical History no surgical history Social History household members: family Smoking Status: Former smoker alcohol intake: former ROS Constitutional Constitutional: Denies fatigue, fever(s), poor appetite, weight gain or weight loss Gastrointestinal Gastrointestinal: Denies belching, bloating, change in bowel habits, change in stool character, chewing difficulty, coffee ground emesis, constipation, cramping, diarrhea, dyspepsia, dysphagia, early satiety, excessive flatus, fecal incontinence, heartburn, hematemesis, hematochezia, hemorrhoids, loose stools, melena, nausea, odynophagia, rectal bleeding, tenesmus, vomiting or weight changes Physical Exam Const alert, oriented x3, no apparent distress and healthy appearing General Appearance: cooperative GI normal to inspection, nondistended, normoactive bowel sounds, soft to palpation, non-tender and non-distended Percussion: normal to percussion Rectal Exam: deferred Lab / Micro Data 03/04/25 08:27 03/04/25 06:18 Labs: Laboratory Results - last 24 hr 03/03/25 11:30: WBC 6.2, RBC 2.28 L, Hgb 7.0 L, Hct 22.4 L, MCV 98.2 H, MCH 30.7, MCHC 31.3 L, RDW Std Deviation 63.5 H, RDW Coeff of Samira 17.6 H, Plt Count 171, MPV 9.7, Immature Gran % (Auto) 0.800, Neut % (Auto) 77.7 H, Lymph % (Auto) 12.4 L, [place] % (Auto) 7.3, Eos % (Auto) 1.6, Baso % (Auto) 0.2, Absolute Neuts (auto) 4.8, Absolute Lymphs (auto) 0.76 L, Nucleated RBC % 0, Sodium 137, Potassium 4.7, Chloride 106, Carbon Dioxide 21.7, Anion Gap 9, BUN 30 H, Creatinine 0.73, Est GFR (MDRD) Non-Af 92, BUN/Creatinine Ratio 41.4 H, Glucose 94, Calcium 8.6, Total Bilirubin 0.41, AST 26, ALT 14, Alkaline Phosphatase 54, Total Protein 5.8 L, Albumin 3.5, Globulin 2.2, Albumin/Globulin Ratio 1.6, Blood Type B POSITIVE, Antibody Screen NEGATIVE, Crossmatch See Detail 03/03/25 18:00: Hgb 8.0 L, Hct 25.2 L Micro: Microbiology 03/03/25 13:21 Stool Stool Occult Blood (JAE) - Final Occult Blood Positive Imaging Radiology Impression Abdomen/Pelvis CTA 03/03/25 11:40 IMPRESSION: Sigmoid diverticulosis. Status post prostatectomy. Stable hepatic cysts. Small gallstones. 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 Reading Location: [facility] Assessment & Plan Assessment/Plan (1) Blood in stool: PLAN: Plan # This is a very pleasant 79-year-old gentleman with past medical history of COPD on aspirin, Trelegy and albuterol with concern for GI bleed. Differential diagnosis does include peptic ulcer disease secondary to poor nutrition from COPD and aspirin therapy. He should undergo an upper endoscopy and possible colonoscopy. He was explained alternatives, risk and benefits including with any bleeding, infection, sepsis, perforation, need for more urgent . He will have an ASA of 3. - Charges/Coding Visit Charges Inpatient E&M: 79930 Init Hosp L3
[2025-03-03] MEDS: Timolol 0.5% 5ML OPTH.BTL 1 DRP EACH EYE (21:12)
[2025-03-03] MEDS: Glycerin/Hypromellose/PEG400 15 ml Bottle 1 DRP EACH EYE (21:13)
[2025-03-03 21:21] LABS: Hematocrit 23.7 % (40-54); Hemoglobin 7.9 g/dL (13.0-16.5)
[2025-03-04] VITALS (12 sets, daily range): BP systolic 100–131; BP diastolic 69–83; PULSE 86–110; RESP 16–20; TEMP 36.1–37.2; O2SAT 94–99
[2025-03-04] MEDS: Pantoprazole Sodium 80 MG in 0.9% Normal Saline (100mL Bag) 80 ML 10 MG CONT INF ×3 (01:26→22:41)
[2025-03-04 03:58] LABS: Hematocrit 23.9 % (40-54); Hemoglobin 7.9 g/dL (13.0-16.5); Immature Granulocytes Count 0.030 X10^3/uL (0.0-0.0); Mean Corp Hgb Conc 33.1 g/dL (32-36); Mean Corpuscular Volume 94.8 fL (80-94); Mean Platelet Vol. 9.2 fl (6.2-12.0); NRBC Flagged by Analyzer 0 % (0-5); Platelet Count 141 K/mm3 (150-450); RBC Distribution Width CV 17.4 % (11.6-14.6); RBC Distribution Width SD 59.3 fl (35.1-43.9); Red Blood Count 2.52 M/mm3 (4.6-6.2); White Blood Count 6.8 K/mm3 (4.4-11.0)
[2025-03-04 04:11] LABS: Prothrombin Time (Protime)PT. 13.9 SECONDS (11.7-14.9)
[2025-03-04 07:23] LABS: Anion Gap 8 (5-15); BUN 15 mg/dL (4-19); BUN/Creat Ratio 20.3 RATIO (10-20); Calcium,Total 8.4 mg/dL (7.6-11.0); Carbon Dioxide 23.4 mmol/L (21.0-32.0); Chloride 108 mmol/L (98-108); Estimated Creatinine Clearance 56.15 ml/min (50-250); Glucose 87 mg/dL (70-99); Potassium 4.1 mmol/L (3.3-5.1)
[2025-03-04] MEDS: Budesonide Respules 0.5 MG/2 ML AMPUL.NEB. INHALATION ×2 (07:55→20:12)
[2025-03-04 09:12] LABS: Hematocrit 24.1 % (40-54); Hemoglobin 7.8 g/dL (13.0-16.5)
[2025-03-04] MEDS: Timolol 0.5% 5ML OPTH.BTL 1 DRP EACH EYE ×2 (09:47→19:42)
[2025-03-04] MEDS: Glycerin/Hypromellose/PEG400 15 ml Bottle 1 DRP EACH EYE ×2 (09:48→19:42)
--- NOTE | 2025-03-04 13:58 | CHAPLAIN ---
Type of Pastoral Visit _x__ Initial Visit ___ Follow-up Visit ___ On-call Visit ___ General Patient Visit ___ Spiritual Assessment ___ Family Conference ___ Bereavement ___ Rapid Response ___ Code Blue ___ Other (describe below) Pastoral Care Referral From _x__ Patient ___ Family ___ Nurse ___ Physician ___ Metal Forger'S Assistant ___ Negative Stripper ___ Other (describe below) Sacrament/Intervention _x__ Active listening ___ Anointing ___ Scientologist ___ Bereavement ___ Communion _x__ Shaneka exploration ___ _x__ Life review _x__ Prayer ___ Reconciliation ___ Sacrament of Sick _x__ Supportive presence ___ Wedding ___ Other (describe below) Pastoral Comments patient immediately speaks of his adventist shaneka and how he is struggling with his circumstances; pt expresses disappointment at having a scheduled surgery to be postponed now due to a new health issue; pt has pain that he is trying to endure; pt has concerns for his who will have to take up more responsibilities but is also in a declining health matter; pt has family but most are not in state and so unavailable; pt has a shaneka in God but is not currently involved in a specific confucianist; pt is talkative and at times is also tearful; pt welcomes prayers
--- NOTE | 2025-03-04 14:38 | PN.HOSP_ITS ---
Reason for Visit Reason for Visit: Diagnoses Melena (03/03/25) Subjective Subjective Patient examined today, he was admitted yesterday for hematochezia, he is due to undergo endoscopy today. Patient's hemoglobin on admission was 7, he was transfused 1 unit of packed red blood cells and his hemoglobin now is 7.8. Objective Data Objective Data Vital Signs: Vital Signs Temp Pulse Resp BP Pulse Ox O2 Del Method 98.5 F 90 16 107/83 H 95 Room Air 03/04/25 09:55 03/04/25 12:39 03/04/25 12:39 03/04/25 09:55 03/04/25 09:55 03/04/25 14:30 Oxygen Delivery Method Room Air Weight: 53.9 kg Body Mass Index (BMI) 20.4 Intake & Output: Intake and Output for Last 24 Hours 03/02/25 03/03/25 03/04/25 23:59 23:59 23:59 Intake Total 740 / 740 689.16 / 689.16 Balance 740 / 740 689.16 / 689.16 Lab / Micro Data 03/04/25 08:27 03/04/25 06:18 Labs: Laboratory Results - last 24 hr 03/03/25 11:30: Crossmatch See Detail 03/03/25 18:00: Hgb 8.0 L, Hct 25.2 L 03/03/25 21:10: Hgb 7.9 L, Hct 23.7 L 03/04/25 03:43: WBC 6.8, RBC 2.52 L, Hgb 7.9 L, Hct 23.9 L, MCV 94.8 H, MCH 31.3, MCHC 33.1 D, RDW Std Deviation 59.3 H, RDW Coeff of Samira 17.4 H, Plt Count 141 L, MPV 9.2, Immature Gran % (Auto) 0.400, Neut % (Auto) 72.6 H, Lymph % (Auto) 14.3 L, [place] % (Auto) 8.3, Eos % (Auto) 4.0, Baso % (Auto) 0.4, Absolute Neuts (auto) 4.9, Absolute Lymphs (auto) 0.97, Nucleated RBC % 0, PT 13.9, INR 1.1, Sodium Cancelled, Potassium Cancelled, Chloride Cancelled, Carbon Dioxide Cancelled, Anion Gap Cancelled, BUN Cancelled, Creatinine Cancelled, Estim Creat Clear Calc Cancelled, Est GFR (MDRD) Non-Af Cancelled, BUN/Creatinine Ratio Cancelled, Glucose Cancelled, Calcium Cancelled 03/04/25 06:18: Sodium 139, Potassium 4.1, Chloride 108, Carbon Dioxide 23.4, Anion Gap 8, BUN 15, Creatinine 0.73, Estim Creat Clear Calc 56.15, Est GFR (MDRD) Non-Af 92, BUN/Creatinine Ratio 20.3 H, Glucose 87, Calcium 8.4 03/04/25 08:27: Hgb 7.8 L, Hct 24.1 L Micro: Microbiology 03/03/25 13:21 Stool Stool Occult Blood (JAE) - Final Occult Blood Positive Physical Exam Const alert, oriented x3, no apparent distress and average body habitus General Appearance: cooperative, well kempt and well developed Orientation / Consciousness: awake, oriented to person, oriented to place and oriented to time HEENT normocephalic, head/scalp atraumatic and moist oral mucous membranes Eyes PERRL, EOMs intact bilaterally and conjunctivae normal Neck supple, no JVD, thyroid normal and no carotid bruits General: trachea midline Resp normal respiratory effort, no retractions, no use of accessory muscles and clear to auscultation bilaterally Auscultation: Negative for rales, rhonchi or wheezes Cardio regular rate, regular rhythm, S1 normal heart sound, S2 normal heart sound, no murmurs, no rub and no gallops GI normal to inspection, nondistended, normoactive bowel sounds, soft to palpation, non-tender and non-distended Extremity no clubbing, cyanosis or edema Skin no rashes or lesions noted General Skin Exam: no breakdown Neuro oriented x3, CN's II-XII intact bilaterally, moves all extremities, no focal motor deficits and no sensory deficits noted Sensorium / Orientation: awake and alert Speech: speech normal Psych affect normal Assessment & Plan Assessment/Plan (1) Blood in stool: PLAN: Plan 1. Hematochezia-etiology unclear, patient is due to undergo endoscopy today, GI is seeing the patient #2 acute on chronic anemia-suspected to be secondary to acute blood loss from upper/lower GI bleed-patient was given 1 unit of packed red blood cells, currently his hemoglobin is stable, I ordered a UA on the patient due to the fact he had blood in his urine in the past which caused a significant anemia. #3 hyperlipidemia-patient is on lovastatin #4 chronic obstructive pulmonary disease-patient is currently on aerosol treatments Total clinical time spent by myself addressing the patient's medical issues, reviewing all of his data, and collaborating with patient's care team: 35 minutes Charges/Coding Visit Charges Inpatient E&M: 95093 Subs Hosp L2
--- NOTE | 2025-03-04 15:48 | PCM.PRE.AN2 ---
Assessment & Plan Anesthesia* Anesthesia Assessment Anesthesia Assessment: Discussed sedation and/or anesthesia options, risks, benefits, and alternatives with patient/parents/legal guardian/POA. Questions invited. The patient/parents/legal guardian/POA seems to understand and agrees to proceed with anesthesia plan. Reviewed the physical assessment, medical history, allergy history and patient home medications list prior to surgery/procedure/anesthetic and documented any changes. Performed airway and anesthesia risk assessments. Anesthesia Focused Assessment* Temperature: 98.5 F Pulse Rate: 90 Blood Pressure: 107/83 Respiratory Rate: 16 Pulse Ox: 95 Labs Anesthesia Preop lab: CBC WBC 6.8 K/mm3 (4.4-11.0) 03/04/25 03:43 03/04/25 RBC 2.52 M/mm3 (4.6-6.2) L 03/04/25 03:43 03/04/25 Hgb 7.8 g/dL (13.0-16.5) L 03/04/25 08:27 03/04/25 Hct 24.1 % (40-54) L 03/04/25 08:27 03/04/25 Plt Count 141 K/mm3 (150-450) L 03/04/25 03:43 03/04/25 CHEMISTRY Potassium 4.1 mmol/L (3.3-5.1) 03/04/25 06:18 03/04/25 Sodium 139 mmol/L (133-145) 03/04/25 06:18 03/04/25 Magnesium 2.1 mg/dL (1.6-2.6) 10/16/24 03:39 10/16/24 Phosphorus 2.7 mg/dL (2.5-4.9) 10/16/24 03:39 10/16/24 BUN 15 mg/dL (4-19) 03/04/25 06:18 03/04/25 Creatinine 0.73 mg/dL (0.70-1.20) 03/04/25 06:18 03/04/25 Glucose 87 mg/dL (70-99) 03/04/25 06:18 03/04/25 COAG PT 13.9 SECONDS (11.7-14.9) 03/04/25 03:43 03/04/25 Pre-Assessment Diagnosis/Proposed Procedure Planned Operative Procedure(s): Esophagogastroduodenoscopy with possible cautery and/or injection therapy. 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 When Was Last Pacemaker Check QUESTION #4 FULL TEXT: You/Your Family Experience fever (hyperthermia) with Anesthesia Last Oral Intake Last Oral intake: Last Oral Intake NPO since Meds taken in AM with sips of water? Meds patient instructed to take am of surgery PONV PONV - securities research analyst: PONV - securities research analyst Female HX of Motion Sickness HX of N/V After Surgery Non-Smoker Duration of Surgery greater than 60 minutes Number of Risk Factors PONV Score Height & Weight Height & Weight: Anesthesia: Height & Weight Height 5 ft 4 in 03/03/25 15:59 Weight: 53.9 kg 03/03/25 15:59 Body Mass Index (BMI) 20.4 03/03/25 15:59 Respiratory Assessment Respiratory Assessment - securities research analyst: Respiratory Tract Infection Hx - securities research analyst Hx Respiratory Tract Infection No 10/16/24 12:19 STOP Sleep Apnea STOP Sleep Apnea - securities research analyst: STOP Sleep Apnea - securities research analyst Hx Hypertension No 03/04/25 14:50 Hx Sleep Apnea No 03/03/25 16:02 CPAP BIPAP Do you snore loudly (louder No 03/03/25 16:02 than talking or can be heard Do you often feel tired/ No 03/03/25 16:02 fatigued/ sleepy during daytime? Has anyone observed you stop No 03/03/25 16:02 breathing during sleep? STOP Results Negative 03/03/25 16:02 QUESTION #5 FULL TEXT : Do you snore loudly (louder than talking or can be heard through closed doors)? 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 Specify any problems Hx of Preganancy in last 3 N/A 03/03/25 16:02 Months Nurse Filling Out Transfusion [email or web address] 03/03/25 16:02 & Questions: Date: 03/03/25 03/03/25 16:02 Time: 16:04 03/03/25 16:02 Patient unable to answer at this time (ie. confused, unrespo /Reproduction History /Reproductive History - securities research analyst: /Reproductive Hx- securities research analyst Hx Now Gestational Age (in weeks): EDC: Hx Hx Para Hx Section SAB No 10/16/24 12:19 Active Medications Active Medications: Current Medications Generic Name Dose Route Start Last Admin Trade Name Freq PRN Reason Stop Dose Admin Acetaminophen 650 mg 03/03/25 15:57 Acetaminophen 325 Mg Tablet PO Q6H PRN PRN Pain 1-10 Or Fever >100.7 Albuterol Sulfate 2.5 mg 03/03/25 15:57 Albuterol 2.5 Mg/3 Ml Vial.Neb. INHALATION Q2H PRN PRN SOB &/OR WHEEZING Albuterol/Ipratropium 3 ml 03/03/25 16:00 03/04/25 12:38 Ipratropium/Albuterol Sulfate 3 Ml Ampul.Neb INHALATION 3 ml Q6HWA.RT NASRA Administration Atorvastatin Calcium 10 mg 03/04/25 10:00 Atorvastatin Calcium 10 Mg Tablet PO DAILY NASRA Budesonide 0.5 mg 03/03/25 16:00 03/04/25 07:55 Budesonide Respules 0.5 Mg/2 Ml Ampul.Neb. INHALATION 0.5 mg Q12H.RT NASRA Administration Glycerin/Hypromellose/Polyethylene 1 drp 03/03/25 22:00 03/04/25 09:48 Glycerin/Hypromellose/[id number] 15 Ml Bottle EACH EYE 1 drp BID NASRA Administration Guaifenesin 600 mg 03/03/25 22:00 03/03/25 21:14 Guaifenesin 600 Mg Tablet PO 600 mg BID NASRA Administration Pantoprazole Sodium 80 mg/ 100 mls @ 10 mls/hr 03/03/25 14:25 03/04/25 09:46 Sodium Chloride CONT INF 10 mls/hr Q10H NASRA Administration Loratadine 10 mg 03/04/25 10:00 Loratadine 10 Mg Tablet PO DAILY NASRA Melatonin 10 mg 03/03/25 22:00 Melatonin 10 Mg Tablet PO QHS PRN PRN INSOMNIA Ondansetron HCl 4 mg 03/03/25 15:57 Ondansetron 4 Mg/2 Ml Vial IV Q8H PRN PRN NAUSEA/VOMITING Senna/Docusate Sodium 2 tablet 03/03/25 15:57 Senna/Docusate Sodium 1 Tablet PO BID PRN PRN Constipation Sodium Chloride 10 - 40 ml 03/03/25 16:09 0.9% Saline Lock 10 Ml Syringe IV UD PRN SALINE FLUSH Timolol Maleate 1 drp 03/03/25 22:00 03/04/25 09:47 Timolol 0.5% 5ml Opth.Btl EACH EYE 1 drp BID NASRA Administration PFSH Medical History Frequent ventricular premature beats PAC (premature atrial contraction) History of COPD Pneumothorax Asthma exacerbation in COPD Prostate CA COPD (chronic obstructive pulmonary disease) Glaucoma High cholesterol Medical History no medical history Home Medications ?Medication ?Instructions ?Recorded ?Last Taken ?Type artificial tears(hypromellose) 0.3 1 drp EACH EYE BID DRY EYE 08/25/22 03/02/25 History % eye drops aspirin 81 mg tablet,delayed 81 mg PO DAILY HEART HEALTH 08/25/22 02/26/25 History release lovastatin 40 mg tablet 40 mg PO DAILY CHOLESTEROL 08/25/22 03/02/25 History timolol maleate 0.5 % eye drops 1 drp EACH EYE BID GLUCOMA 08/25/22 03/03/25 History albuterol sulfate 90 mcg/actuation 2 puff inhalation Q6H PRN Dyspnea 12/13/22 01/05/24 History aerosol inhaler docusate sodium 100 mg capsule 100 mg PO QHS 12/13/22 03/02/25 History (Colace) fluticasone fur. 200 mcg-umeclid 1 inh inhalation 212912/13/22 03/02/25 History 62.5 mcg-vilant 25 mcg inhalat.powder (Trelegy Ellipta) fluticasone propionate 50 1 spray intranasal DAILY PRN nasal 12/13/22 01/05/24 History mcg/actuation nasal congestion spray,suspension guaifenesin 600 mg tablet, 600 mg PO BID 12/13/22 03/02/25 History extended release 12 hr (Mucinex) acetaminophen 500 mg tablet 500 - 1,000 mg PO Q6H PRN pain 10/14/24 Unknown History loratadine 10 mg tablet (Allergy 10 mg PO DAILY 10/14/24 03/02/25 History Relief (loratadine)) vitamins A,C,Z-kzhy-jkvixn 2,148 2 tab PO BID 10/14/24 03/02/25 History mcg-113 mg-45 mg-17.4 mg tablet (Eye Multivitamin) Allergy/AdvReac Type Severity Reaction Status Date / Time propofol Allergy Severe Other Verified 03/03/25 11:23 Family History Other COPD (chronic obstructive pulmonary disease) Heart disease Hypertension Family History no significant family his Surgical History H/O radical prostatectomy Surgical History no surgical history Social History household members: family Smoking Status: Former smoker alcohol intake: former Review of Systems (Anesthesia) ROS Narrative System reviewed and no additional complaints, except as documented.
[2025-03-04] MEDS: Lactated Ringers 1,000 ML 15 ML IV (15:57)
--- NOTE | 2025-03-04 16:12 | PRE.ANES_ITS ---
ASA Classification* ASA Classification ASA Classification: 3 Assessment & Plan Anesthesia* Anesthesia Assessment Anesthesia Assessment: Discussed sedation and/or anesthesia options, risks, benefits, and alternatives with patient/parents/legal guardian/POA. Questions invited. The patient/parents/legal guardian/POA seems to understand and agrees to proceed with anesthesia plan. Reviewed the physical assessment, medical history, allergy history and patient home medications list prior to surgery/procedure/anesthetic and documented any changes. Performed airway and anesthesia risk assessments. Anesthesia Type Anesthesia Type: MAC (Etomidate titrated) History Source History Obtained from:: Patient and Chart Anesthesia Focused Assessment* Temperature: 98.5 F Pulse Rate: 90 Blood Pressure: 107/83 Respiratory Rate: 16 Pulse Ox: 95 Oxygen Delivery Method: Room Air Airway Assessment Mouth opens: >3 cm Mallampati Score: I Teeth Condition: Partial (Upper teeth partial is out. Poor dentition multiple teeth missing) Neck Range of motion (ROM): Full ROM Labs Anesthesia Preop lab: CBC WBC 6.8 K/mm3 (4.4-11.0) 03/04/25 03:43 03/04/25 RBC 2.52 M/mm3 (4.6-6.2) L 03/04/25 03:43 03/04/25 Hgb 7.8 g/dL (13.0-16.5) L 03/04/25 08:27 03/04/25 Hct 24.1 % (40-54) L 03/04/25 08:27 03/04/25 Plt Count 141 K/mm3 (150-450) L 03/04/25 03:43 03/04/25 CHEMISTRY Potassium 4.1 mmol/L (3.3-5.1) 03/04/25 06:18 03/04/25 Sodium 139 mmol/L (133-145) 03/04/25 06:18 03/04/25 Magnesium 2.1 mg/dL (1.6-2.6) 10/16/24 03:39 10/16/24 Phosphorus 2.7 mg/dL (2.5-4.9) 10/16/24 03:39 10/16/24 BUN 15 mg/dL (4-19) 03/04/25 06:18 03/04/25 Creatinine 0.73 mg/dL (0.70-1.20) 03/04/25 06:18 03/04/25 Glucose 87 mg/dL (70-99) 03/04/25 06:18 03/04/25 COAG PT 13.9 SECONDS (11.7-14.9) 03/04/25 03:43 Pre-Assessment Diagnosis/Proposed Procedure Planned Operative Procedure(s): EGD with cautery and or possible injection therapy Anesthesia History 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 When Was Last Pacemaker Check QUESTION #4 FULL TEXT: You/Your Family Experience fever (hyperthermia) with Anesthesia Last Oral Intake Last Oral intake: Last Oral Intake NPO since Meds taken in AM with sips of water? Meds patient instructed to take am of surgery Any additional information?: Yes NPO since: 00:00 Meds taken in AM with sips of water?: No PONV PONV - office support associate: PONV - office support associate Female HX of Motion Sickness HX of N/V After Surgery Non-Smoker Duration of Surgery greater than 60 minutes Number of Risk Factors PONV Score Height & Weight Height & Weight: Anesthesia: Height & Weight Height 5 ft 4 in 03/03/25 15:59 Weight: 53.9 kg 03/03/25 15:59 Body Mass Index (BMI) 20.4 03/03/25 15:59 Respiratory Assessment Respiratory Assessment - office support associate: Respiratory Tract Infection Hx - office support associate Hx Respiratory Tract Infection No 10/16/24 12:19 STOP Sleep Apnea STOP Sleep Apnea - office support associate: STOP Sleep Apnea - office support associate Hx Hypertension No 03/04/25 14:50 Hx Sleep Apnea No 03/03/25 16:02 CPAP BIPAP Do you snore loudly (louder No 03/03/25 16:02 than talking or can be heard Do you often feel tired/ No 03/03/25 16:02 fatigued/ sleepy during daytime? Has anyone observed you stop No 03/03/25 16:02 breathing during sleep? STOP Results Negative 03/03/25 16:02 QUESTION #5 FULL TEXT : Do you snore loudly (louder than talking or can be heard through closed doors)? 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 Specify any problems Hx of Preganancy in last 3 N/A 03/03/25 16:02 Months Nurse Filling Out Transfusion [email or web address] 03/03/25 16:02 & Questions: Date: 03/03/25 03/03/25 16:02 Time: 16:04 03/03/25 16:02 Patient unable to answer at this time (ie. confused, unrespo /Reproduction History /Reproductive History - office support associate: /Reproductive Hx- office support associate Hx Now Gestational Age (in weeks): EDC: Hx Hx Para Hx Section SAB No 10/16/24 12:19 Active Medications Active Medications: Current Medications Generic Name Dose Route Start Last Admin Trade Name Freq PRN Reason Stop Dose Admin Acetaminophen 650 mg 03/03/25 15:57 Acetaminophen 325 Mg Tablet PO Q6H PRN PRN Pain 1-10 Or Fever >100.7 Albuterol Sulfate 2.5 mg 03/03/25 15:57 Albuterol 2.5 Mg/3 Ml Vial.Neb. INHALATION Q2H PRN PRN SOB &/OR WHEEZING Albuterol/Ipratropium 3 ml 03/03/25 16:00 03/04/25 12:38 Ipratropium/Albuterol Sulfate 3 Ml Ampul.Neb INHALATION 3 ml Q6HWA.RT NASRA Administration Atorvastatin Calcium 10 mg 03/04/25 10:00 Atorvastatin Calcium 10 Mg Tablet PO DAILY NASRA Budesonide 0.5 mg 03/03/25 16:00 03/04/25 07:55 Budesonide Respules 0.5 Mg/2 Ml Ampul.Neb. INHALATION 0.5 mg Q12H.RT NASRA Administration Glycerin/Hypromellose/Polyethylene 1 drp 03/03/25 22:00 03/04/25 09:48 Glycerin/Hypromellose/[id number] 15 Ml Bottle EACH EYE 1 drp BID NASRA Administration Guaifenesin 600 mg 03/03/25 22:00 03/03/25 21:14 Guaifenesin 600 Mg Tablet PO 600 mg BID NASRA Administration Pantoprazole Sodium 80 mg/ 100 mls @ 10 mls/hr 03/03/25 14:25 03/04/25 09:46 Sodium Chloride CONT INF 10 mls/hr Q10H NASRA Administration Lactated Ringer's 1,000 mls @ 15 mls/hr 03/04/25 16:00 03/04/25 15:57 IV 15 mls/hr .Q48H NASRA Administration Loratadine 10 mg 03/04/25 10:00 Loratadine 10 Mg Tablet PO DAILY NASRA Melatonin 10 mg 03/03/25 22:00 Melatonin 10 Mg Tablet PO QHS PRN PRN INSOMNIA Ondansetron HCl 4 mg 03/03/25 15:57 Ondansetron 4 Mg/2 Ml Vial IV Q8H PRN PRN NAUSEA/VOMITING Senna/Docusate Sodium 2 tablet 03/03/25 15:57 Senna/Docusate Sodium 1 Tablet PO BID PRN PRN Constipation Sodium Chloride 10 - 40 ml 03/03/25 16:09 0.9% Saline Lock 10 Ml Syringe IV UD PRN SALINE FLUSH Timolol Maleate 1 drp 03/03/25 22:00 03/04/25 09:47 Timolol 0.5% 5ml Opth.Btl EACH EYE 1 drp BID NASRA Administration PFSH Medical History Frequent ventricular premature beats PAC (premature atrial contraction) History of COPD Pneumothorax Asthma exacerbation in COPD Prostate CA COPD (chronic obstructive pulmonary disease) Glaucoma High cholesterol Medical History no medical history Home Medications ?Medication ?Instructions ?Recorded ?Last Taken ?Type artificial tears(hypromellose) 0.3 1 drp EACH EYE BID DRY EYE 08/25/22 03/02/25 History % eye drops aspirin 81 mg tablet,delayed 81 mg PO DAILY HEART HEAL TH 08/25/22 02/26/25 History release lovastatin 40 mg tablet 40 mg PO DAILY CHOLESTEROL 1 03/02/25 History timolol maleate 0.5 % eye drops 1 drp EACH EYE BID GLU COMA 08/25/22 03/04/25 History albuterol sulfate 90 mcg/actuation 2 puff inhalation Q 6H PRN Dyspnea 12/13/22 01/05/24 History aerosol inhaler docusate sodium 100 mg capsule 100 mg PO QHS 12/13/22 03/02/25 History (Colace) fluticasone fur. 200 mcg-umeclid 1 inh inhalation 212912/13/22 03/02/25 History 62.5 mcg-vilant 25 mcg inhalat.powder (Trelegy Ellipta) fluticasone propionate 50 1 spray intranasal DAILY PRN nasal 12/13/22 01/05/24 History mcg/actuation nasal congestion spray,suspension guaifenesin 600 mg tablet, 600 mg PO BID 12/13/2202/19 History extended release 12 hr (Mucinex) acetaminophen 500 mg tablet 500 - 1,000 mg PO Q6H PRN pain 10/14/24 Unknown History loratadine 10 mg tablet (Allergy 10 mg PO DAILY 03/02/25 History Relief (loratadine)) vitamins A,C,Y-gxyi-srftmn 2,148 2 tab PO BID 10/14/24 03/02/25 History mcg-113 mg-45 mg-17.4 mg tablet (Eye Multivitamin) Allergy/AdvReac Type Severity Reaction Status Date / Time propofol Allergy Severe Other Verified 03/03/25 11:23 Family History Other COPD (chronic obstructive pulmonary disease) Heart disease Hypertension Family History no significant family his Surgical History H/O radical prostatectomy Surgical History no surgical history Social History household members: family Smoking Status: Former smoker alcohol intake: former Review of Systems (Anesthesia) ROS Narrative System reviewed and no additional complaints, except as documented.
--- NOTE | 2025-03-04 16:15 | EGD_PTH ---
PATIENT: JUSTIN HULL LOC: [facility] U#:[id number] AGE/SX: 79/M ROOM: [facility] RE03/03/[address]: Dr. Rosendo Abbott DO : 1945 BED: 1 DIS: 03/05/2025 SPEC #: [id number] RECD: 03/04/25 17:51 STATUS: CARMEN ROBLES #: [id number] TIMMY: 03/04/25 16:[address]: Rosendo Abbott DEPT: SURGICAL PATHOLOGY RECD BY: Yudelka Love ENTERED: 03/05/25 09:47 SP TYPE: EGD BIOPSY [facility] DR: MD Dr. Kate Rinaldi MD Tissues: A - Gastric mucous membrane B - Esophagus, NOS Procedures: Surgery Specimen Level IV HEADER OPERATION: EGD, biopsy, electrohemostasis PRE-OP DIAGNOSIS: Blood in stool TISSUE SUBMITTED: A- Gastric body biopsy, B- Distal esophagus biopsy MICROSCOPIC DIAGNOSIS A. Gastric, body, blood in stool, biopsy: * Reactive gastropathy. * Negative for helicobacter pylori on routine stains. B. Esophagus, distal, blood stools, biopsy: * Squamocolumnar mucosa with reflux esophagitis. * Negative for intestinal metaplasia, dysplasia or malignancy. MICROSCOPIC DESCRIPTION Slides are reviewed. GROSS DESCRIPTION Received in 2 formalin containers labeled with the patient's name and date of . Designated as: A. Gastric body BX are 3 mccallum tissue fragments, 0.1 cm to 0.6 cm. Entirely submitted in 1 cassette. B. Distal esophagus BX are 3 mccallum tissue fragments 0.3 cm to 0.4 cm. Entirely submitted in 1 cassette CO 03/05/2025 CPT:[id number]
--- NOTE | 2025-03-04 16:36 | PCM.PN.BLA ---
Progress Note Patient has been n.p.o. for upper endoscopy today. Physical Exam Const alert, oriented x3, no apparent distress and healthy appearing General Appearance: cooperative GI normal to inspection, nondistended, normoactive bowel sounds, soft to palpation, non-tender and non-distended Percussion: normal to percussion Rectal Exam: deferred Assessment & Plan Assessment/Plan (1) Blood in stool: PLAN: Plan # This is a very pleasant 79-year-old gentleman with past medical history of COPD on aspirin, Trelegy and albuterol with concern for GI bleed. Differential diagnosis does include peptic ulcer disease secondary to poor nutrition from COPD and aspirin therapy. He should undergo an upper endoscopy and possible colonoscopy. He was explained alternatives, risk and benefits including with any bleeding, infection, sepsis, perforation, need for more urgent . He will have an ASA of 3. - Visit Charges Inpatient E&M: 40349 Subs Hosp L3
[2025-03-04] MEDS: Lactated Ringers 500 ML IV (16:45)
--- NOTE | 2025-03-04 17:09 | OP.CCLET_ITS ---
03/04/2025 Rosendo Lopez [address] [place] [address] Re : Upper GI endoscopy procedure for Dimitri Painter Dear Dr. Lopez This procedure was performed on Tuesday, March 04, 2025. My impressions and recommendations are as follows: Impressions : - LA Grade C erosive esophagitis with bleeding. Treated with a heater probe. - Moderate Schatzki ring. - Z-line irregular, 39 cm from the incisors. Biopsied. - Bile gastritis. Biopsied. - No gross lesions in the entire examined duodenum. Recommendations : - Return patient to [facility] for ongoing care. - Resume previous diet. - Continue present medications. - Await pathology results. - Use Protonix (pantoprazole) 40 mg PO BID indefinitely. My findings are described in the full procedure note, which is enclosed. If I can be of further assistance, please feel free to contact me at . Sincerely, Jay Palacios, 03/04/2025 5:09:06 PM This report has been signed electronically.
--- NOTE | 2025-03-04 17:09 | OP.EGD_ITS ---
Patient Name: Dimitri Painter Procedure Date: 03/04/2025 4:39 PM Date of : 1945 Age: 79 Procedure: Upper GI endoscopy Indications: Coffee-ground emesis Providers: Jay Palacios DO Referring MD: Kate Castillo Md Medicines: Monitored Anesthesia Care Patient Profile: This is an 79 year old male. Refer to note in patient chart for documentation of history and physical. Patient has symptoms of chronic nausea and acute vomiting. Complications: No immediate complications. Procedure: Pre-Anesthesia Assessment: - Prior to the procedure, a History and Physical was performed, and patient medications and allergies were reviewed. The patient is competent. The risks and benefits of the procedure and the sedation options and risks were discussed with the patient. All questions were answered and informed consent was obtained. Patient identification and proposed procedure were verified by the physician in the pre-procedure area. Mental Status Examination: alert and oriented. Airway Examination: normal oropharyngeal airway and neck mobility. Respiratory Examination: clear to auscultation. CV Examination: normal. ASA Grade Assessment: II - A patient with mild systemic disease. After reviewing the risks and benefits, the patient was deemed in satisfactory condition to undergo the procedure. The anesthesia plan was to use monitored anesthesia care (MAC). Immediately prior to administration of medications, the patient was re-assessed for adequacy to receive sedatives. The heart rate, respiratory rate, oxygen saturations, blood pressure, adequacy of pulmonary ventilation, and response to care were monitored throughout the procedure. The physical status of the patient was re-assessed after the procedure. After obtaining informed consent, the endoscope was passed under direct vision. Throughout the procedure, the patient's blood pressure, pulse, and oxygen saturations were monitored continuously. The Endoscope was introduced through the mouth, and advanced to the fourth part of the duodenum. Small bowel enteroscopy was deemed necessary. The upper GI endoscopy was accomplished without difficulty. The patient tolerated the procedure well. Scope In: 4:56:05 PM Scope Out: 5:02:05 PM Total Procedure Duration Time 0 hours 6 minutes 0 seconds Findings: LA Grade C (one or more mucosal breaks continuous between tops of 2 or more mucosal folds, less than 75% circumference) esophagitis with bleeding was found 34 to 40 cm from the incisors. Coagulation for hemostasis using heater probe was successful. Estimated blood loss was minimal. A moderate Schatzki ring was found at the gastroesophageal junction. The Z-line was irregular and was found 39 cm from the incisors. Biopsies were taken with a cold forceps for histology. Verification of patient identification for the specimen was done. Estimated blood loss was minimal. Diffuse severe inflammation characterized by erosions, erythema, friability and granularity was found in the entire examined stomach. Biopsies were taken with a cold forceps for histology. Verification of patient identification for the specimen was done. Estimated blood loss was minimal. Biopsies were taken with a cold forceps for Helicobacter pylori testing. Verification of patient identification for the specimen was done. Estimated blood loss was minimal. No gross lesions were noted in the entire examined duodenum. Impression: - LA Grade C erosive esophagitis with bleeding. Treated with a heater probe. - Moderate Schatzki ring. - Z-line irregular, 39 cm from the incisors. Biopsied. - Bile gastritis. Biopsied. - No gross lesions in the entire examined duodenum. Recommendation: - Return patient to [facility] for ongoing care. - Resume previous diet. - Continue present medications. - Await pathology results. - Use Protonix (pantoprazole) 40 mg PO BID indefinitely. Procedure Code(s): --- Professional --- 64365, 59, Small intestinal endoscopy, enteroscopy beyond second portion of duodenum, not including ileum; with control of bleeding (eg, injection, bipolar cautery, unipolar cautery, laser, heater probe, stapler, plasma linseed oil boiler) 18818, 51, Small intestinal endoscopy, enteroscopy beyond second portion of duodenum, not including ileum; with biopsy, single or multiple CPT copyright 2021 [employer]. All rights reserved. The codes documented in this report are preliminary and upon cpc coder review may be revised to meet current compliance requirements. Jay Palacios DO 03/04/2025 5:09:06 PM This report has been signed electronically. Number of Addenda: 0 Note Initiated On: 03/04/2025 4:39 PM
--- NOTE | 2025-03-04 17:11 | PCM.POST.ANE ---
Anesthesia: Postop Eval I Current Vital Signs Temperature: 97.0 F Pulse Rate: 99 Blood Pressure: 108/70 Respiratory Rate: 16 Pulse Ox: 98 Oxygen Delivery Method: Room Air Assessment Airway patent: Yes Spontaneous unlabored respirations: Yes Mental status: Awake and Calm nausea: No Vomiting: No Anesthesia Complication: No Fluid Hydration Crystalloid volume administer (ml): 200 Total IV fluid infused: 200 Progress Note Anesthesia document: Postop Eval 1 completed: Yes
[2025-03-04 17:22] LABS: Squamous Epithelial Cells - UA 0 SEEN /hpf (0-5)
[2025-03-04 18:17] LABS: Color, Urine Straw (Yellow); Glucose, Dipstick Normal (Normal); Ketone-Dipstick 15 mg/dl (Negative); Leukocyte Esterase-Dipstick Negative /ul (Negative); Nitrite-Dipstick Negative (Negative); Occult Blood-Urine Negative /ul (Negative); Protein-Dipstick 15 mg/dl (Negative); Specific Gravity, Urine 1.015 (1.002-1.030); Urine Bilirubin Dipstick Negative (Negative)
[2025-03-04 19:21] LABS: Mucous, Urine 1+ /hpf (<or=2+); Red Blood Cells-Urine 0-5 SEEN /hpf (0-5)
[2025-03-05 04:13] VITALS: BP 113/73; PULSE 92; RESP 18; TEMP 36.4; O2SAT 92
[2025-03-05 07:00] VITALS: PULSE 107
--- NOTE | 2025-03-05 07:06 | POSTOPAN2_ITS ---
Anesthesia Postop Eval I Sum Postop Eval Completion status Anesthesia document: Postop Eval 1 completed: Yes Anesthesia Postop Eval I Summary Anesthesia Postop Eval I Summary: Anesthesia Postop Eval I: Assessment Summary Airway patent Yes 03/04/25 17:12 [email or web address] Spontaneous unlabored Yes 03/04/25 17:12 [email or web address] respirations Mental status Awake,Calm 03/04/25 17:12 [email or web address] nausea No 03/04/25 17:12 [email or web address] Vomiting No 03/04/25 17:12 [email or web address] Anesthesia Postop Eval I: Fluid Summary Crystalloid volume administer 200 03/04/25 17:12 [email or web address] (ml) Colloids volume administered ( ml) Blood Product volume administered (ml) Total IV fluid infused 200 03/04/25 17:12 [email or web address] Anesthesia Postop Eval I: Summary Notes Anesthesia Complication No 03/04/25 17:12 [email or web address] Anesthesia Complication Comment: Post-operative progress note Anesthesia: Postop Eval II Evaluation Mental status: Awake and Calm Pain Level: 0 nausea: No Vomiting: No Complications Anesthesia Complication: No
--- NOTE | 2025-03-05 07:06 | PCM.POSTANE2 ---
Anesthesia Postop Eval I Sum Postop Eval Completion status Anesthesia document: Postop Eval 1 completed: Yes Anesthesia Postop Eval I Summary Anesthesia Postop Eval I Summary: Anesthesia Postop Eval I: Assessment Summary Airway patent Yes 03/04/25 17:12 [email or web address] Spontaneous unlabored Yes 03/04/25 17:12 [email or web address] respirations Mental status Awake,Calm 03/04/25 17:12 [email or web address] nausea No 03/04/25 17:12 [email or web address] Vomiting No 03/04/25 17:12 [email or web address] Anesthesia Postop Eval I: Fluid Summary Crystalloid volume administer 200 03/04/25 17:12 [email or web address] (ml) Colloids volume administered ( ml) Blood Product volume administered (ml) Total IV fluid infused 200 03/04/25 17:12 [email or web address] Anesthesia Postop Eval I: Summary Notes Anesthesia Complication No 03/04/25 17:12 [email or web address] Anesthesia Complication Comment: Post-operative progress note Anesthesia: Postop Eval II Evaluation Mental status: Awake and Calm Pain Level: 0 nausea: No Vomiting: No Complications Anesthesia Complication: No
[2025-03-05 07:24] VITALS: PULSE 100; RESP 16
[2025-03-05] MEDS: Budesonide Respules 0.5 MG/2 ML AMPUL.NEB. INHALATION (07:24)
[2025-03-05 07:27] LABS: Hematocrit 25.0 % (40-54); Hemoglobin 8.0 g/dL (13.0-16.5); Immature Granulocytes Count 0.010 X10^3/uL (0.0-0.0); Mean Corp Hgb Conc 32.0 g/dL (32-36); Mean Corpuscular Volume 96.9 fL (80-94); Mean Platelet Vol. 9.5 fl (6.2-12.0); NRBC Flagged by Analyzer 0 % (0-5); Platelet Count 164 K/mm3 (150-450); RBC Distribution Width CV 17.3 % (11.6-14.6); RBC Distribution Width SD 60.8 fl (35.1-43.9); Red Blood Count 2.58 M/mm3 (4.6-6.2); White Blood Count 7.3 K/mm3 (4.4-11.0)
[2025-03-05 10:15] VITALS: BP 106/65; PULSE 111; RESP 18; TEMP 36.9; O2SAT 96
[2025-03-05] MEDS: Timolol 0.5% 5ML OPTH.BTL 1 DRP EACH EYE (10:37)
[2025-03-05] MEDS: Glycerin/Hypromellose/PEG400 15 ml Bottle 1 DRP EACH EYE (10:37)
--- NOTE | 2025-03-05 10:40 | CASEMGMT ---
SHARDA JAMESON Face to Face with patient for initial transition planning/care coordination assessment. RN CM introduced self and role at [facility]. Patient lying in bed, alert and oriented. Patient willing to participate in assessment and is able to answer all questions appropriately. Care providers, pharmacy, and demographics verified. Strata: 2 PCP: Jessica Specialists: Ed[place], reproductive healthcare assistant, Fran Feldman Preferred Pharmacy: [facility] Insurance: [facility] Prescription Benefit: yes Living Will/HPOA: yes, Kasie Painter LNOK: Living Arrangements: Patient lives with in a 2 story home. Patient is able to ambulate stairs, but also has stair lift. Patient states he is independent at home. Transportation: self, DME/HHC: Patient has shower chair, cane, walker, wheelchair, nebulizer, pulse ox, and home oxygen through [facility] with portability for 1-5lpm PRN. Patient wishes to discharge home, denies need for home health at this time. Patient states he has no further needs or concerns at this time. CM to follow for discharge planning needs that may arise. Disposition Plan: Patient to discharge home with family support and follow-up plans in place. Sakina SPIVEY, RN, CM
[2025-03-05 11:00] VITALS: PULSE 103
--- NOTE | 2025-03-05 12:48 | PCM.DC ---
Discharge Instructions Diet Discharge Diet: No restrictions DC O2, CPAP, BIPAP needs Home O2 Discharge instructions: No Dressing / Incision Discharge Activity: Return to Normal Activity Weight Bearing Status: Full weight bearing Follow Up Care Test Results: Test results from this visit will be discussed in further detail at your follow-up appointment, if applicable. Discharge Plan Admission Admit Date/Time: 03/03/25 14:59 Primary Reason for Your Visit: esophagitis Attending Provider: Rosendo Abbott Primary Care Provider: Rosendo Lopez Consulting Providers: Kate Castillo Discharge Orders/Prescriptions Prescriptions: New pantoprazole 40 mg Tablet,Delayed Release (Dr/Ec) 40 mg PO BID Qty: 60 0RF Continued lovastatin 40 mg tablet 40 mg PO DAILY aspirin 81 mg Tablet,Delayed Release (Dr/Ec) 81 mg PO DAILY timolol maleate 0.5 % drops 1 drp EACH EYE BID artificial tears(hypromellose) 0.3 % Drops 1 drp EACH EYE BID docusate sodium [Colace] 100 mg Capsule 100 mg PO QHS albuterol sulfate 90 mcg/actuation Hfa Aerosol Inhaler 2 puff INHALATION Q6H PRN (Reason: Dyspnea) fluticasone propionate 50 mcg/actuation [place],Suspension 1 spray INTRANASAL DAILY PRN (Reason: nasal congestion) Rx Instructions: administer into each nostril guaifenesin [Mucinex] 600 mg Tablet Extended Release 12hr 600 mg PO BID Trelegy Ellipta 200-62.5-25 mcg Blister With Device 1 inh INHALATION 2130 Eye Multivitamin 2,148 mcg-113 mg-45 mg-17.4mg tablet 2 tab PO BID Rx Instructions: administer with AM and PM meals loratadine [Allergy Relief (loratadine)] 10 mg tablet 10 mg PO DAILY acetaminophen 500 mg tablet 500 - 1,000 mg PO Q6H PRN (Reason: pain) Referrals / Follow Up: Rosendo Lopez MD [Primary Care Provider] - See Referral Note (in two weeks-get another CBC checked(lab)) Disposition Disposition (needs filled in before D/C Order can be placed): Home, Self Care
--- NOTE | 2025-03-05 12:51 | DS.PCM_ITS ---
Providers Date of Admission: 03/03/25 Date of Discharge: 03/05/25 Primary Care Physician: Dr. Rosendo Lopez MD Consultations 03/03/25 15:57 Consult: Gastroenterology Routine Consulting Provider: Miguel Gastroenter[facility] Reason for Consult: GI bleed EMERGENT Consult: No MD Notified: Yes Date Notified: 03/03/25 Time Notified: 15:05 Method of Notification: ED Physician Initiated Reason For Visit: GI BLEED Diagnosis Discharge Diagnosis (1) Blood in stool: Status: Acute Code(s): K92.1 - Melena Plan 1. Hematochezia-secondary to erosive esophagitis with bleeding #2 acute on chronic anemia-suspected to be secondary to acute blood loss from upper/lower GI bleed-patient was given 1 unit of packed red blood cells, currently his hemoglobin is stable, I ordered a UA on the patient due to the fact he had blood in his urine in the past which caused a significant anemia. #3 hyperlipidemia-patient is on lovastatin #4 chronic obstructive pulmonary disease-patient is currently on aerosol treatments Total clinical time spent by myself addressing the patient's medical issues, reviewing all of his data, and collaborating with patient's care team: 35 minutes Medications at Discharge Home Medications artificial tears(hypromellose) 0.3 % eye drops 1 drp EACH EYE BID DRY EYE 08/25/22 aspirin 81 mg tablet,delayed release 81 mg PO DAILY HEART HEALTH 08/25/22 lovastatin 40 mg tablet 40 mg PO DAILY CHOLESTEROL 08/25/22 timolol maleate 0.5 % eye drops 1 drp EACH EYE BID GLUCOMA 08/25/22 albuterol sulfate 90 mcg/actuation aerosol inhaler 2 puff inhalation Q6H PRN Dyspnea 12/13/22 docusate sodium 100 mg capsule (Colace) 100 mg PO QHS stool softner 12/13/22 fluticasone fur. 200 mcg-umeclid 62.5 mcg-vilant 25 mcg inhalat.powder (Trelegy Ellipta) 1 inh inhalation 2130 breathing 12/13/22 fluticasone propionate 50 mcg/actuation nasal spray,suspension 1 spray intranasal DAILY PRN nasal congestion 12/13/22 guaifenesin 600 mg tablet, extended release 12 hr (Mucinex) 600 mg PO BID cough 12/13/22 acetaminophen 500 mg tablet 500 - 1,000 mg PO Q6H PRN pain 10/14/24 loratadine 10 mg tablet (Allergy Relief (loratadine)) 10 mg PO DAILY allergies 10/14/24 vitamins A,C,C-vgiu-htxgjb 2,148 mcg-113 mg-45 mg-17.4 mg tablet (Eye Multivitamin) 2 tab PO BID vitamin 10/14/24 pantoprazole 40 mg tablet,delayed release 40 mg PO BID #60 tabs 03/05/25 Hospital Course Operations None Procedures Blood transfusion and EGD Summary of Care Provided Minutes Spent on Discharge: 31 Hospital Course: This 79-year-old white male was seen in the emergency room at [facility] with complaints relating to a possible GI bleed. For the past 2 days he has been having bloody bowel movements with clots, he stated the bowel movements were dark in nature. Labs obtained included a CBC which was abnormal for hemoglobin of 7, chemistry profile was unremarkable. 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 Patient was admitted to PCU, he received 1 unit of packed red blood cells and underwent an EGD which showed evidence of esophagitis. On 03/05/2025, patient was seen and examined: On examination he appeared in good health and spirits. Vital signs as documented. Skin warm and dry and without overt rashes. Neck without JVD, neck was supple, trachea midline, thyroid was normal. Lungs clear bilaterally, normal air movement was noted. Heart exam notable for regular rhythm, normal sounds and absence of murmurs, rubs or gallops. Abdomen unremarkable and without evidence of organomegaly, masses, or abdominal aortic enlargement. Bowel sounds are present, abdomen is not distended. Extremities nonedematous, no cyanosis was noted, no clubbing was noted. Neuro: Cranial nerves II through XII are grossly intact, no focal motor deficits were noted, sensation to light touch and pinprick intact, motor exam 5/5 throughout. Psych: Patient is alert and oriented x3, he does not appear anxious or depressed, he does not appear agitated. Patient appeared stable for discharge home on 03/05/2025. Weight / BMI Weight Weight: 53.9 kg Body Mass Index (BMI) 20.4 ABG / Lab / Microbiology Data 03/05/25 06:38 03/04/25 06:18 Laboratory: Laboratory Results - last 24 hr 03/04/25 11:18: Urine Color Straw, Urine Clarity Sl. Cloudy, Urine pH 6.0, Ur Specific [place] 1.015, Urine Protein 15 H, Urine Glucose (UA) Normal, Urine Ketones 15 H, Urine Occult Blood Negative, Urine Nitrite Negative, Urine Bilirubin Negative, Urine Urobilinogen Normal, Ur Leukocyte Esterase Negative, Urine RBC 0-5 SEEN, Urine WBC 0-5 SEEN, Ur Squamous Epith Cells 0 SEEN, Urine Bacteria 0 SEEN, Urine Mucus 1+ 03/05/25 06:38: WBC 7.3, RBC 2.58 L, Hgb 8.0 L, Hct 25.0 L, MCV 96.9 H, MCH 31.0, MCHC 32.0, RDW Std Deviation 60.8 H, RDW Coeff of Samira 17.3 H, Plt Count 164, MPV 9.5, Immature Gran % (Auto) 0.100, Neut % (Auto) 81.1 H, Lymph % (Auto) 8.9 L, Parker % (Auto) 7.1, Eos % (Auto) 2.5, Baso % (Auto) 0.3, Absolute Neuts (auto) 5.9, Absolute Lymphs (auto) 0.65 L, Nucleated RBC % 0 Microbiology: Microbiology 03/03/25 13:21 Stool Stool Occult Blood (JAE) - Final Occult Blood Positive D/C Instructions Discharge Diet: No restrictions Weight Bearing Status: Full weight bearing DC O2, CPAP, BIPAP Needs Home O2 Discharge instructions: No Meaningful Use Info Meaningful Use Meaningful Use Diagnoses (Choose all that apply): None applicable Discharge Plan Admission Admit Date/Time: 03/03/25 14:59 Primary Reason for Your Visit: esophagitis Attending Provider: Rosendo Abbott Primary Care Provider: Rosendo Lopez Consulting Providers: Kate Castillo Discharge Orders/Prescriptions Prescriptions: New pantoprazole 40 mg Tablet,Delayed Release (Dr/Ec) 40 mg PO BID Qty: 60 0RF Continued lovastatin 40 mg tablet 40 mg PO DAILY aspirin 81 mg Tablet,Delayed Release (Dr/Ec) 81 mg PO DAILY timolol maleate 0.5 % drops 1 drp EACH EYE BID artificial tears(hypromellose) 0.3 % Drops 1 drp EACH EYE BID docusate sodium [Colace] 100 mg Capsule 100 mg PO QHS albuterol sulfate 90 mcg/actuation Hfa Aerosol Inhaler 2 puff INHALATION Q6H PRN (Reason: Dyspnea) fluticasone propionate 50 mcg/actuation [place],Suspension 1 spray INTRANASAL DAILY PRN (Reason: nasal congestion) Rx Instructions: administer into each nostril guaifenesin [Mucinex] 600 mg Tablet Extended Release 12hr 600 mg PO BID Trelegy Ellipta 200-62.5-25 mcg Blister With Device 1 inh INHALATION 2129 Eye Multivitamin 2,148 mcg-113 mg-45 mg-17.4mg tablet 2 tab PO BID Rx Instructions: administer with AM and PM meals loratadine [Allergy Relief (loratadine)] 10 mg tablet 10 mg PO DAILY acetaminophen 500 mg tablet 500 - 1,000 mg PO Q6H PRN (Reason: pain) Referrals / Follow Up: Rosendo Lopez MD [Primary Care Provider] - See Referral Note (in two weeks- get another CBC checked(lab)) Disposition Disposition (needs filled in before D/C Order can be placed): Home, Self Care Charges/Coding Visit Charges Inpatient E&M: 09846 Disch Hosp >30min
[2025-03-05 14:41] VITALS: BP 116/71; PULSE 103; RESP 18; TEMP 36.7; O2SAT 96
--- NOTE | 2025-03-05 18:46 | PCM.PN.BLA ---
Progress Note Patient underwent upper endoscopy yesterday. He was discovered to have a esophageal ring along with bile induced hemorrhagic gastritis secondary to poor nutrition. Patient's BMI is down to 20. I had a long talk with his regarding his nutrition and his need for right hip replacement. Physical Exam Const alert, oriented x3, no apparent distress and healthy appearing General Appearance: cooperative GI normal to inspection, nondistended, normoactive bowel sounds, soft to palpation, non-tender and non-distended Percussion: normal to percussion Rectal Exam: deferred Assessment & Plan Assessment/Plan (1) Blood in stool: PLAN: Plan # This is a very pleasant 79-year-old gentleman with past medical history of COPD on aspirin, Trelegy and albuterol with concern for GI bleed. Differential diagnosis does include peptic ulcer disease secondary to poor nutrition from COPD and aspirin therapy. He should undergo an upper endoscopy and possible colonoscopy. He was explained alternatives, risk and benefits including with any bleeding, infection, sepsis, perforation, need for more urgent . He will have an ASA of 3. 03/05/2025: -Findings: LA Grade C (one or more mucosal breaks continuous between tops of 2 or more mucosal folds, less than 75% circumference) esophagitis with bleeding was found 34 to 40 cm from the incisors. Coagulation for hemostasis using heater probe was successful. Estimated blood loss was minimal. A moderate Schatzki ring was found at the gastroesophageal junction. The Z-line was irregular and was found 39 cm from the incisors. Biopsies were taken with a cold forceps for histology. Verification of patient identification for the specimen was done. Estimated blood loss was minimal. Diffuse severe inflammation characterized by erosions, erythema, friability and granularity was found in the entire examined stomach. Biopsies were taken with a cold forceps for histology. Verification of patient identification for the specimen was done. Estimated blood loss was minimal. Biopsies were taken with a cold forceps for Helicobacter pylori testing. Verification of patient identification for the specimen was done. Estimated blood loss was minimal. No gross lesions were noted in the entire examined duodenum. Impression: - LA Grade C erosive esophagitis with bleeding. Treated with a heater probe. - Moderate Schatzki ring. - Z-line irregular, 39 cm from the incisors. Biopsied. - Bile gastritis. Biopsied. - No gross lesions in the entire examined duodenum. Recommendation: - Return patient to hospital [facility] for ongoing care. - Resume previous diet. - Continue present medications. - Await pathology results. - Use Protonix (pantoprazole) 40 mg PO BID indefinitely. Also due to his significant weight loss he should undergo colonoscopy. His said he did have some bleeding in his stool in his stool. Visit Charges Inpatient E&M: 74553 Init Hosp L3
--- OUTSIDE RECORDS SUMMARY | 2025-03-06 01:43 | XMS RPT_ITS | CCD ---
Author Organization [facility] Care Team Providers Care Electronic Data Interchange Specialist Name Role Phone Dr. Otilia Lopez Primary Care Provider Dr. Anjali Escobar Emergency Provider Dr. Alex Boles Admit Provider Dr. Alex Boles Attending Provider Dr. Alex Boles Other Provider Dr. Chas Mcmahon Attending Provider Dr. Chas Mcmahon Other Provider Dr. Otilia Abbott Other Provider Dr. Otilia Abbott Attending Provider Dr. Vivek Moncada Attending Provider Dave NAQVI MD, Daesung Unavailable Otilia Lopez MD Primary Care Provider Otilia Lopez MD Unavailable Dylon Medina MD Unavailable Ward Chacon RN Unavailable Dr. Otilia Lopez Primary Care Provider Dr. Anjali Escobar Emergency Provider Dr. Alex Boles Admit Provider Dr. Alex Boles Attending Provider Dr. Alex Boles Other Provider Dr. Chas Mcmahon Attending Provider Dr. Chas Mcmahon Other Provider Dr. Otilia Abbott Referring Provider Dr. Otilia Abbott Other Provider Dr. Otilia Abbott Attending Provider Dr. Vivek Moncada Attending Provider Dr. Sunny White Attending Provider Dr. Alex Boles Referring Provider Dr. Otilia Lopez Primary Care Provider Dr. Anjali Escobar Emergency Provider Dr. Alex Boles Admit Provider Dr. Alex Boles Other Provider Dr. Chas Mcmahon Other Provider Dr. Otilia Abbott Attending Provider Dr. Otilia Abbott Other Provider Ines ROBIN, Ward Unavailable Sherley Acosta MD Unavailable Adam NAQVI, Dylon Unavailable Unavailable Otilia Lopez MD Primary Care Provider Adam NAQVI, Dylon Petty Unavailable Marla ENGINEER SERGEANT.Mary CORRALES Unavailable Garcia ENGINEER SERGEANT.ANTONI, Jens Unavailable Patito Amaral MD Unavailable Otilia Lopez Primary Care Unavailable Blayne Trejo Attending Unavailable Blayne Trejo Referring Unavailable Jonathan, Kate Consulting Unavailable Otilia Lopez Primary Care Unavailable Blayne Trejo Attending Unavailable Castillo, Kate Referring Unavailable Castillo, Kate Admitting Unavailable Dennis Braun Consulting Unavailable Otilia Lopez Primary Care Unavailable David Muniz Attending Unavailable Castillo, Kate Referring Unavailable Blayne Trejo Attending Unavailable Otilia Lopez Primary Care Unavailable Castillo, Kate Referring Unavailable Kate Castillo Admitting Unavailable Kate Castillo Consulting Unavailable Dennis Braun Consulting Unavailable Blayne Trejo Consulting Unavailable Kate Castillo Attending Unavailable Otilia Lopez Primary Care Unavailable Amadou Wadsworth Attending Unavailable Jessica NAQVI, Dr. Robbins Primary Care Provider Mihai NAQVI, Dr. Pavon Emergency Provider Jonathan NAQVI, Dr. Love Admit Provider Jonathan NAQVI, Dr. Love Referring Provider Jonathan NAQVI, Dr. Love Other Provider Dr. Blayne Trejo DO Attending Provider Kade NAQVI, Dr. Dennis Aaron Other Provider Maya LERNER, Dr. Cisneros Other Provider Flavio NAQVI, Dr. Hernandez Attending Provider Maya LERNER, Dr. Cisneors Referring Provider Tannhof ENGINEER SERGEANT.LAST GREASER, Mary Unavailable Unavail able Tannhof ENGINEER SERGEANT.LAST GREASER, Mary Unavailable SEABOLD, RENETTA Referring Unavailable OTILIA LOPEZ Primary Care Unavailable MUNIR, AHMED Attending Unavailable SEABOLD, RENETTA Referring Unavailable ELDEROTILIA HAWKINS Primary Care Unavailable KI LYNCH Attending Unavailable ELDEROTILIA HAWKINS Referring Unavailable ELDEROTILIA HAWKINS Primary Care Unavailable OTILIA LOPEZ Referring Unavailable ELDEROTILIA HAWKINS Primary Care Unavailable SEABOLD, RENETTA Referring Unavailable ELDERBROCKOTILIA Primary Care Unavailable ELDERBROCKOTILIA Referring Unavailable ELDERBROCKOTILIA Primary Care Unavailable ELDEROTILIA HAWKINS Attending Unavailable OTILIA LOPEZ Primary Care Unavailable SEABOLD, RENETTA Referring Unavailable ELDERBROOTILIA BOLDEN Primary Care Unavailable SEABOLD, RENETTA Referring Unavailable ELDERBROCK, OTILIA Monet Primary Care Unavailable ELDERBROCK, OTILIA Monet Primary Care Unavailable JENS CANDELARIA Attending Unavailable ELDEROTILIA HAWKINS Primary Care Unavailable ELDEROTILIA HAWKINS Attending Unavailable OTILIA LOPEZ Primary Care Unavailable SEABOLD, RENETTA Attending Unavailable MUNIR, AHMED Referring Unavailable ELDERBROCK, OTILIA D Primary Care Unavailable OTILIA LOPEZ Attending Unavailable OTILIA LOPEZ Primary Care Unavailable OTILIA LOPEZ Referring Unavailable OTILIA LOPEZ Primary Care Unavailable SEABOLD, RENETTA Referring Unavailable OTILIA LOPEZ Primary Care Unavailable SEABOLD, RENETTA Referring Unavailable OTILIA LOPEZ Primary Care Unavailable SEABOLD, RENETTA Referring Unavailable OTILIA LOPEZ Primary Care Unavailable KI COOK Referring Unavailable OTILIA LOPEZ Primary Care Unavailable SUNNY OLMOS Attending Unavailable Marla CHAPA.LAST GREASER, Mary Holman Unavailable Dr. Otilia Lopez MD Primary Care Provider 1( [phone] Dr. Ranulfo Subramanian DO Emergency Provider Jonathan NAQVI, Dr. Love Attending Provider Jonathan NAQVI, Dr. Love Admit Provider Dr. Kate Castillo MD Referring Provider [phone] Allergies Allergy Classification Reported Allergen(s) Allergy Type Date of Onset Reaction(s) Facility (20 sources) Propofol; Translations: [PROPOFOL] Drug Allergy 3 Other: See Comments [facility] Comment on above: HE DOESN'T WAKE UP (1 source) Propofol Drug Allergy 5 [facility] Rep[facility] Medications Current Medications Medication Drug Class(es) Dates Sig (Normalized) Sig (Original) acetaminophen 500 mg oral tablet (20 sources) Start: 10-14-2024 take 500-1000 mg by mouth every six hours as needed for pain Acetaminophen 500 mg tablet Active 500 - 1000 mg PO EVERY 6 HOURS as needed for pain October 14, 2024 1:00am Start: 12-13-2022 End: 10-14-2024 Acetaminophen (Tylenol) 325 mg Tablet Discontinued 1000 mg PO EVERY 6 HOURS as needed for Pain December 13, 2022 12:00am October 14, 2024 7:50pm Start: 02-07-2013 take 2 tablets by [facility] every six hours as needed for pain acetaminophen (TYLENOL) 500 mg tablet Indications: pain Take 2 tablets by mouth every 6 hours as needed for pain. Indications: pain 0 02/07/2013 Active Start: 02-07-2013 acetaminophen (TYLENOL) 500 mg tablet Indications: pain [The details of the medication are not available because there are pending changes by a home health clinician.] 0 02/07/2013 Active Comment on above: Take 2 tablets by mo uth every 6 hours as needed for Pain. [The details of the medication are not available because there are pending changes by a home health clinician.] Take 2 tablets by mo uth every 6 hours as needed for pain. Indications: pain albuterol 0.83 mg/ml inhalation solution (20 sources) beta2-Adrenergic Agonist Start: 01-25-2024 albuterol (PROVENTIL) 2.5 mg /3 mL (0.083 %) nebulizer solution Indications: Pulmonary emphysema, unspecified emphysema type (HCC) Use 3 mL via nebulizer every 4 hours as needed for wheezing/shortness of breath. Use over 5-15minutes. 120 mL 5 01/25/2024 Active Start: 12-13-2022 Albuterol Sulf ate 90 mcg/actuation Hfa Aerosol Inhaler Active 2 NMA INHALATION EVERY 6 HOURS as needed for Dyspnea December 13, 2022 12:00am Start: 12-13-2022 take 1 puff(s) by in halation every six hours Albuterol Sulfate Active 2 PUFF INHALATION EVERY 6 HOURS December 13, 2022 12:00am Start: 09-05-2022 End: 09-28-2022 take 2 puff(s) by mouth every four hours as needed for wheezing albuterol HFA (PROAIR HFA) 90 mcg/actuation inhaler Indications: bronchospasm prevention Inhale 2 Puffs by mouth every 4 hours as needed for wheezing/shortness of breath. Take as directed 8.5 g 2 09/28/2022 Active Comment on above: Inhale 2 Puffs by mo uth every 4 hours as needed for wheezing/shortness of breath. Take as directed ascorbic acid 113 mg / beta carotene 7160 mg / cuprous oxide 0.4 mg / dl-alpha tocopheryl acetate 100 unt / zinc oxide 17.4 mg oral tablet (20 sources) Vitamin C Start: 09-13-19 23 Vitamins A,C,U-Rtgw-Ejjupb (Eye Multivitamin) 2,148 mcg-113 mg-45 mg-17.4mg tablet Active 2 {tbl} PO TWICE A DAY October 14, 2024 1:00am administer with AM and PM meals Comment on above: Take 1 tablet by haseeb twice daily. aspirin 81 mg delayed release oral tablet (20 sources) Platelet Aggregation Inhibitor, Nonsteroidal Anti-inflammatory Drug Start: 08-25-20 take 1 tablet by mouth once daily Aspirin 81 mg Tablet,Delayed Release (Dr/Ec) Active 81 mg PO DAILY August 25, 2022 1:00am [facility] Comment on above: Take 81 mg by mouth once daily. [The details of the medication are not available because there are pending changes by a home health clinician.] Take 81 mg by mouth once daily. Indications: prevention of transient ischemic attack docusate sodium 100 mg oral capsule (20 sources) Start: 12-14-19 take 1 capsule by mouth at bedtime Docusate Sodium (Colace) 100 mg Capsule Active 100 mg PO AT BEDTIME December 13, 2022 12:00am Start: 09-05-2022 End: 12-19-2022 take 1 capsule by mouth twice daily as needed for constipation docusate sodium (COLACE) 100 mg capsule Indications: constipation Take 1 capsule by mouth twice daily as needed for constipation. 30 capsule 0 09/05/2022 12/19/2022 Discontinued Comment on above: Take 1 capsule by mo [facility] twice daily as needed for constipation. fluticasone propionate 0.05 mg/actuat metered dose nasal spray (20 sources) Corticosteroid Start: take 1-2 spray(s) nasal route once daily fluticasone (FLONASE) 50 mcg/actuation nasal spray Use 1-2 Sprays in each nostril once daily. 1 Each 5 03/08/2023 Active Start: 12-13-2022 Fluticasone Pr opionate 50 mcg/actuation [place],Suspension Active 1 NMA INTRANASAL DAILY as needed for nasal congestion December 13, 2022 12:00am administer into each nostril Start: 12-13-2022 take 1 spray(s) nasa l route once daily Fluticasone Propionate Active 1 SPRAY INTRANASAL DAILY December 13, 2022 12:00am administer into each nostril Start: 11-22-2022 End: 03-06-2023 take 1-2 spray(s) nasal route once daily fluticasone (FLONASE) 50 mcg/actuation nasal spray Use 1-2 Sprays in each nostril once daily. 1 Each 2 11/22/2022 03/06/2023 Discontinued Comment on above: Use 1-2 Sprays in ea ch nostril once daily. Fluticasone-Umeclidin- Vilanter (9 sources) Start: 12-13-2022 Ovpopdtxevr-Yzxnvqryj-Wp lanter (Trelegy Ellipta) 200-62.5-25 mcg Blister With Device Active 1 NMA INHALATION 2129December 13, 2022 12:00am Start: 12-13-2022 Fluticasone-Um eclidin-Vilanter (Trelegy Ellipta) 200-62.5-25 mcg Blister With Device Active 1 INH INHALATION DAILY December 13, 2022 12:00am glycerin 3 mg/ml / propylene glycol 10 mg/ml ophthalmic solution (20 sources) Non-Standardized Chemical Allergen Propylene Glycol-Gly cerin 1-0.3 % drop Indications: dry eye Use in both eyes. Active Propylene Glycol -Glycerin 1-0.3 % drop Indications: dry eye Use in both eyes. 0 Active Comment on above: Use in both eyes. [The details of the medication are not available because there are pending changes by a home health clinician.] 12 hr guaiFENesin 600 mg extended release oral tablet (20 sources) Start: 3 End: 4 take 1 tablet by mouth twice daily, then take 1 tablet by mouth every twelve hours Guaifenesin (Mucinex) 600 mg Tablet Extended Release 12hr Active 600 mg PO TWICE A DAY December 13, 2022 12:00am Start: 09-05-2022 End: 12-19-2022 take 1 tablet by mouth every twelve hours as needed for congestion guaiFENesin (MUCINEX) 600 mg 12 hr tablet Indications: cough Take 1 tablet by mouth every 12 hours as needed (congestion). 30 tablet 0 09/05/2022 12/19/2022 Discontinued Comment on above: Take 1 tablet by haseeb th every 12 hours as needed (congestion). hypromellose 3 mg/ml ophthalmic solution (11 sources) Start: 2 take 0.3 drop(s) into the eye(s) twice daily Artificial Tears(Hypromellose) 0.3 % Drops Active 1 NMA EACH EYE TWICE A DAY August 25, 2022 1:00am DRY EYE Start: 08-25-2022 take 0.3 drop(s) int o the eye(s) twice daily Artificial Tears(Hypromellose) (Genteal (Hypromellose)) 0.3 % Drops Active 1 DRP EACH EYE TWICE A DAY August 25, 2022 1:00am loratadine 10 mg oral tablet (2 sources) Start: 10-14-2024 take 1 tablet by mouth once daily Loratadine (Allergy Relief (Loratadine)) 10 mg tablet Active 10 mg PO DAILY October 14, 2024 1:00am lovastatin 40 mg oral tablet (20 sources) HMG-CoA Reductase Inhibitor Start: 07-20-2021 End: 12-16-2024 take 1 tablet by mouth once daily Lovastatin 40 mg tablet Active 40 mg PO DAILY August 25, 2022 1:00am CHOLESTEROL Comment on above: Take 1 tablet by haseeb th daily at bedtime. OXYGEN, HOME THERAPY, (20 sources) Start: 09-08-2022 OXYGEN, HOME THERAPY, 2 L/min by Nasal Cannula route continuous. 09/08/2022 Active Start: 09-08-2022 OXYGEN, HOME T HERAPY, 2 L/min by Nasal Cannula route continuous. 0 09/08/2022 Active Start: 09-08-2022 OXYGEN, HOME T HERAPY, [The details of the medication are not available because there are pending changes by a home health clinician.] 0 09/08/2022 Active Start: 09-08-2022 OXYGEN, HOME T HERAPY, 2 L/min by Nasal Cannula route once in interventional radiology. 0 09/08/2022 Active Comment on above: 2 L/min by Nasal Can nula route once in interventional radiology. [The details of the medication are not available because there are pending changes by a home health clinician.] 2 L/min by Nasal Can nula route continuous. sodium chloride 30 mg/ml inhalation solution (20 sources) Start: 05-29-2024 sodium chloride (NEBUSAL) 3 % nebulizer solution Indications: Pulmonary emphysema, unspecified emphysema type (HCC) Use 4 mL via nebulizer two times a day as needed for cough (to help thin secretions). 240 mL 1 05/29/2024 Active Timolol Maleate (20 sources) beta-Adrenergic Yudith Start: 08-25-2022 Timolol Maleate 0.5 % drops Active 1 NMA EACH EYE TWICE A DAY August 25, 2022 1:00am GLUCOMA Start: 08-25-2022 Timolol Maleat e 0.5 % drops Active 1 NMA EACH EYE TWICE A DAY August 25, 2022 1:00am Start: 08-25-2022 Timolol Maleat e Active 1 DRP EACH EYE TWICE A DAY August 25, 2022 1:00am Start: 08-25-2022 Timolol Maleat e Active 1 DRP EACH EYE TWICE A DAY August 25, 2022 12:00am TIMOLOL MALEATE OPHTHALMIC Indications: Glaucoma Use in eyes. Left eye Active TIMOLOL MALEATE OPHTHALMIC Indications: Glaucoma [The details of the medication are not available because there are pending changes by a home health clinician.] 0 Active TIMOLOL MALEATE OPHTHALMIC Indications: Glaucoma Use in eyes. Left eye 0 Active TIMOLOL MALEATE OPHTHALMIC Use in eyes. Left eye 0 Active TIMOLOL MALEATE OPHTHALMIC Use in eyes. Left eye 0 Suspended Comment on above: Use in eyes. Left ey e [The details of the medication are not available because there are pending changes by a home health clinician.] TRELEGY ELLIPTA 200-62.5-25 mcg inhalation powder (20 sources) Start: 07-31-2024 take 1 dose by mouth once daily TRELEGY ELLIPTA 200-62.5-25 mcg inhalation powder USE 1 INHALATION BY MOUTH ONCE DAILY AT THE SAME TIME EACH DAY DIRECTED 180 Each 3 07/31/2024 Active Start: 07-19-2023 End: 07-31-2024 take 1 dose by mouth once daily TRELEGY ELLIPTA 200-62.5-25 mcg inhalation powder USE 1 INHALATION BY MOUTH ONCE DAILY AT THE SAME TIME EACH DAY DIRECTED 180 Each 3 07/19/2023 07/31/2024 Discontinued Start: 07-19-2023 take 1 dose by mouth once daily TRELEGY ELLIPTA 200-62.5-25 mcg inhalation powder USE 1 INHALATION BY MOUTH ONCE DAILY AT THE SAME TIME EACH DAY DIRECTED 180 Each 3 07/19/2023 Active Comment on above: USE 1 INHALATION BY MOUTH ONCE DAILY AT THE SAME TIME EACH DAY DIRECTED Completed/Discontinued Medications Medication Drug Class(es) Dates Sig (Normalized) Sig (Original) aluminum hydroxide 200 mg / magnesium hydroxide 200 mg / simethicone 25 mg chewable tablet (20 sources) Start: 12-13-2022 End: 01-06-2024 Alum-Mag Hydroxide-Simeth (Maalox Plus) 200-200-25 mg Tablet,Chewable Discontinued 2 {tbl} PO EVERY 6 HOURS as needed for Constipation December 13, 2022 12:00am January 06, 2024 2:30pm Start: 09-05-2022 End: 12-19-2022 take 30 mL by mouth every six hours as needed aluminum-magnesium hydroxide-simethicone (MAALOX,MYLANTA,MAG-AL PLUS) 200-200-20 mg/5 mL suspension Indications: heartburn Take 30 mL by mouth every 6 hours as needed. 355 mL 0 09/05/2022 12/19/2022 Discontinued Comment on above: Take 30 mL by mouth every 6 hours as needed. azithromycin 250 mg oral tablet (8 sources) Macrolide Antimicrobial Start: 01-06-20 End: 10-14-19 take 2 tablets by mouth once daily Azithromycin (Zithromax) 250 mg tablet Discontinued 250 mg PO DAILY 4 4 0 January 06, 2024 12:00am October 14, 2024 7:50pm start on day 2 of therapy betamethasone 3 mg/ml / betamethasone acetate 3 mg/ml injectable suspension (2 sources) Corticosteroid Start: 11-14-19 End: 11-14-19 betamethasone acetate-betamethason e sodium phosphate 6 mg injection (CELESTONE) Start: 11-13-2024 End: 11-13-2024 6 mg, Injection - FOR ORTHO USE ONLY, ONCE, 1 dose, Starting on Mon11/13/24 at 1331, Until Mon11/13/24 at 1331 30 ml bupivacaine hydrochloride 5 mg/ml injection (2 sources) Amide Local Anesthetic Start: 11-13-2024 End: 11-13-2024 BUPivacaine (PF) 0.5 % (5 mg/mL) 4 mL injection Start: 11-13-2024 End: 11-13-2024 4 mL, Injection - FOR ORTHO USE ONLY, ONCE, 1 dose, Starting on Mon11/13/24 at 1331, Until Mon11/13/24 at 1331 xuopnvencld-zbitznmcv-uvmrls er (TRELEGY ELLIPTA) 200-62.5-25 mcg inhalation powder (20 sources) Start: 03-08-2023 take 1 puff(s) by inhalation once daily jypmxegfvdy-ybjcuwgba-pqacfozd (TRELEGY ELLIPTA) 200-62.5-25 mcg inhalation powder Inhale 1 Puff as instructed once daily. 1 Each 5 03/08/2023 Active Start: 11-29-2022 End: 03-06-2023 take 1 puff(s) by inhalation once daily kevcmvdebuw-zikbfzxsu-vsdclzfb (TRELEGY ELLIPTA) 200-62.5-25 mcg inhalation powder Inhale 1 Puff as instructed once daily. 1 Each 11/29/2022 03/06/2023 Discontinued Start: 11-29-2022 take 1 puff(s) by inhalation once daily xmktfpwjpdu-eqrbkkxep-rssbegdz (TRELEGY ELLIPTA) 200-62.5-25 mcg inhalation powder Inhale 1 Puff as instructed once daily. 1 Each 0 11/29/2022 Active Start: 11-22-2022 End: 11-29-2022 take 1 puff(s) by inhalation once daily yqqkciardpd-baxmpnwni-iiheplba (TRELEGY ELLIPTA) 200-62.5-25 mcg inhalation powder Inhale 1 Puff as instructed once daily. 1 Each 2 11/22/2022 11/29/2022 Discontinued Start: 11-22-2022 take 1 puff(s) by inhalation once daily ayyovfjzpdr-unkkzgyle-lozdugwa (TRELEGY ELLIPTA) 200-62.5-25 mcg inhalation powder Inhale 1 Puff as instructed once daily. 1 Each 2 11/22/2022 Active Start: 09-28-2022 End: 11-22-2022 take 1 puff(s) by inhalation once daily bgqptdqjvxv-ymkbsdzng-sofyxrjt (TRELEGY ELLIPTA) 200-62.5-25 mcg inhalation powder Inhale 1 Puff as instructed once daily. 1 Each 2 09/28/2022 11/22/2022 Discontinued Start: 09-28-2022 take 1 puff(s) by inhalation once daily sjfqhbnipsa-ndbbfzaoa-ywpnorwu (TRELEGY ELLIPTA) 200-62.5-25 mcg inhalation powder Inhale 1 Puff as instructed once daily. 1 Each 2 09/28/2022 Active Comment on above: Inhale 1 Puff as ins tructed once daily. 10 ml lidocaine hydrochloride 10 mg/ml injection (2 sources) Antiarrhythmic, Amide Local Anesthetic Start: 11-13-2024 End: 11-13-2024 lidocaine (PF) 10 mg/mL (1 %) 4 mL injection (XYLOCAINE) Start: 11-13-2024 End: 11-13-2024 4 mL, Injection - FOR ORTHO USE ONLY, ONCE, 1 dose, Starting on Mon11/13/24 at 1331, Until Mon11/13/24 at 1331 melatonin 3 mg oral tablet (6 sources) Start: 09-05-2022 End: 09-13-2022 take 1 tablet by mouth every twenty-four hours as needed melatonin 3 mg tablet Indications: sleep Take 1 tablet by mouth at bedtime as needed for for insomnia (insomnia). 30 tablet 0 09/05/2022 09/13/2022 Discontinued Comment on above: Take 1 tablet by haseeb th at bedtime as needed for for insomnia (insomnia). meloxicam 15 mg oral tablet (15 sources) Nonsteroidal Anti-inflammatory Drug Start: 06-27-2024 End: 10-28-2024 take 1 tablet by mouth once daily at mealtime meloxicam (MOBIC) 15 mg tablet Indications: Trochanteric bursitis of left hip Take 1 tablet by mouth once daily. With food. 30 tablet 1 09/25/2024 10/28/2024 Discontinued (Discontinued by Patient) polyethylene glycol 3350 75624 mg powder for oral solution (20 sources) Osmotic Laxative Start: 09-05-2022 End: 01-06-2024 Polyethylene Glycol 3350 (Miralax) 17 gram/dose Powder Discontinued 17 g PO DAILY December 13, 2022 12:00am January 06, 2024 2:32pm Comment on above: Take 1 Packet by haseeb th once daily as needed for constipation. Dissolve dose in 4 - 8 ounces of liquid and take as directed. predniSONE 20 mg oral tablet (3 sources) Start: 01-06-2024 End: 10-14-2024 take 2 tablets by mouth once daily Prednisone 20 mg tablet Discontinued 40 mg PO DAILY 14 January 06, 2024 12:00am October 14, 2024 7:49pm Start: 01-06-2024 take 40 mg by mouth once daily Prednisone Active 40 MG PO DAILY 14 January 06, 2024 12:00am Vit C,Z-Ds-Mjodr-Lutein-Zeax an (Preservision Areds-2) 250-90-40-1 mg Capsule (11 sources) Start: 08-25-2022 End: 01-06-2024 take 2 capsules by mouth twice daily Vit C,J-Rk-Fwhbo-Lutein-Zeaxan (Preservision Areds-2) 250-90-40-1 mg Capsule Discontinued 1 {tbl} PO TWICE A DAY August 25, 2022 1:00am January 06, 2024 2:32pm SUPPLEMENT Start: 08-25-2022 End: 01-06-2024 take 2 capsules by mouth twice daily Vit C,W-An-Keawn-Lutein-Zeaxan (Preservision Areds-2) 250-90-40-1 mg Capsule Discontinued 1 {tbl} PO TWICE A DAY August 25, 2022 1:00am January 06, 2024 2:32pm Start: 08-25-2022 End: 01-06-2024 Vit C,T-Jj-Hcsuq-Lutein-Zeax an (Preservision Areds-2) 250-90-40-1 mg Capsule Discontinued 1 TABLET PO TWICE A DAY August 25, 2022 1:00am January 06, 2024 2:32pm Start: 08-25-2022 Vit C,E-Zn-Admissions Gate Attendant vn-Ncmszq-Kpkobs (Preservision Areds-2) 250-90-40-1 mg Capsule Active 1 TABLET PO TWICE A DAY August 25, 2022 1:00am Start: 08-25-2022 Vit C,E-Zn-Admissions Gate Attendant gw-Kesbas-Jjbifj (Preservision Areds-2) 250-90-40-1 mg Capsule Active 1 TABLET PO TWICE A DAY August 25, 2022 12:00am Problems Active Problems Problem Classification Problem Date Documented Da te Episodic/Chronic Acute posthemorrhagic anemia (1 source) Acute posthemorrhagic anemia; Translations: [Acute posthemorrhagic anemia] Onset: 10-24-2024 Episodic Cardiac dysrhythmias (6 sources) Multiple premature ventricular complexes; Translations: [Ventricular premature depolarization] 10-24-2024 Chronic Chronic obstructive pulmonary disease and bronchiectasis (20 sources) Acute exacerbation of chronic obstructive airways disease with asthma; Translations: [Chronic obstructive pulmonary disease with (acute) exacerbation] Onset: 01-11-2024 Chronic Deficiency and other anemia (5 sources) Anemia; Translations: [Anemia, unspecified] 10-28-2024 Episodic Deficiency and other anemia (3 sources) Anemia, unspecified; Translations: [Anemia, unspecified] Onset: 10-22-2024 Episodic Disorders of lipid metabolism (20 sources) Hyperlipidemia; Translations: [Hyperlipidemia, unspecified] Onset: 06-22-2011 06-22-2011 Chronic Gastrointestinal hemorrhage (2 sources) Hematochezia; Translations: [Melena] 03-03-2025 Episodic Genitourinary symptoms and ill-defined conditions (8 sources) Hematuria, unspecified; Translations: [Gross hematuria] Onset: 10-21-2024 10-24-2024 Episodic Immunizations and screening for infectious disease (3 sources) Needs influenza immunization; Translations: [Encounter for immunization] 06-20-2023 Episodic Osteoarthritis (8 sources) Osteoarthritis of left hip joint; Translations: [Unilateral primary osteoarthritis, left hip] Onset: 12-23-2024 11-13-2024 Chronic Other aftercare (1 source) Post-discharge follow-up; Translations: [Encounter for follow-up examination after completed treatment for conditions other than malignant neoplasm] Episodic Other connective tissue disease (3 sources) Trochanteric bursitis of left hip; Translations: [Trochanteric bursitis, left hip] 06-27-2024 Episodic Other lower respiratory disease (8 sources) H/O: pneumothorax; Translations: [Personal history of other diseases of the respiratory system] 01-06-2024 Episodic Other lower respiratory disease (3 sources) History of chronic obstructive airway disease; Translations: [Personal history of other diseases of the respiratory system] 10-24-2024 Episodic Other non-traumatic joint disorders (7 sources) Hip pain; Translations: [Pain in left hip] 10-28-2024 Episodic Other non-traumatic joint disorders (1 source) Pain in left hip; Translations: [Left hip pain] Onset: 11-13-2024 Episodic Other nutritional; endocrine; and metabolic disorders (1 source) Weight loss; Translations: [Abnormal weight loss] Episodic Other nutritional; endocrine; and metabolic disorders (3 sources) Unintentional weight loss; Translations: [Abnormal weight loss] 10-24-2024 Episodic Other screening for suspected conditions (not mental disorders or infectious disease) (5 sources) Imaging of thorax abnormal; Translations: [Abnormal findings on diagnostic imaging of other specified body structures] Onset: 08-12-2024 05-29-2024 Chronic Other upper respiratory disease (3 sources) Chronic rhinitis; Translations: [Chronic rhinitis] Chronic Other upper respiratory disease (1 source) Chronic rhinitis; Translations: [Chronic rhinitis] Onset: 05-09-2024 Chronic Pleurisy; pneumothorax; pulmonary collapse (20 sources) Pneumothorax; Translations: [Pneumothorax, unspecified] Onset: 08-28-2022 Episodic Residual codes; unclassified (2 sources) Hypoxia; Translations: [Idiopathic sleep related nonobstructive alveolar hypoventilation] 05-08-2024 Chronic Residual codes; unclassified (1 source) Idiopathic sleep related nonobstructive alveolar hypoventilation; Translations: [Nocturnal hypoxia] Onset: 05-09-2024 Chronic Residual codes; unclassified (3 sources) Sign; Translations: [Other general symptoms and signs] 10-24-2024 Episodic Respiratory failure; insufficiency; arrest (adult) (20 sources) Chronic hypoxemic respiratory failure; Translations: [Chronic respiratory failure with hypoxia] Onset: 10-28-2024 Chronic Respiratory failure; insufficiency; arrest (adult) (14 sources) Acute respiratory failure; Translations: [Acute respiratory failure with hypoxia] Episodic Screening and history of mental health and substance abuse codes (4 sources) Ex-tobacco user; Translations: [Personal history of nicotine dependence] Episodic Substance-related disorders (20 sources) Nicotine dependence; Translations: [Nicotine dependence, unspecified, uncomplicated] Onset: 08-28-2022 08-28-2022 Chronic Past or Other Problems Problem Classification Problem Date Documented Da te Episodic/Chronic Cancer of prostate (20 sources) Malignant tumor of prostate; Translations: [Malignant neoplasm of prostate] Onset: 08-09-2012 Resolved: 10-28-2024 08-09-2012 Chronic Essential hypertension (20 sources) Essential hypertension; Translations: [Essential (primary) hypertension] Onset: 06-22-2011 Resolved: 12-08-2020 Chronic Hyperplasia of prostate (20 sources) Benign prostatic hyperplasia; Translations: [Benign prostatic hyperplasia without lower urinary tract symptoms] Onset: 07-26-2012 Resolved: 11-17-2017 11-17-2017 Chronic Nutritional deficiencies (20 sources) Deficiency of macronutrients; Translations: [Unspecified severe protein-calorie malnutrition] Onset: 08-29-2022 Resolved: 12-21-2023 08-29-2022 Chronic Other connective tissue disease (20 sources) Bursitis of hip; Translations: [Trochanteric bursitis, unspecified hip] Onset: 03-14-2013 Resolved: 11-17-2017 11-17-2017 Episodic Other lower respiratory disease (1 source) Personal history of other diseases of the respiratory system; Translations: [History of pneumothorax] Onset: 05-27-2024 Episodic Other non-epithelial cancer of skin (20 sources) Basal cell carcinoma of skin; Translations: [Basal cell carcinoma of skin, unspecified] Onset: 07-09-2012 08-23-2021 Episodic Other screening for suspected conditions (not mental disorders or infectious disease) (20 sources) Raised prostate specific antigen; Translations: [Elevated prostate specific antigen [PSA]] Onset: 07-26-2012 Resolved: 11-17-2017 11-17-2017 Episodic Spondylosis; intervertebral disc disorders; other back problems (20 sources) Backache; Translations: [Lumbosacral pain] Onset: 03-11-2013 03-11-2013 Episodic Results Test Name Value Interpretation Reference Range Facility Absolute lymphocyte countOrd ered By: Finn Cornejo on 03-03-2025 Lymphocytes Auto (Unsp spec) [#/Vol] 0.76 10*3/uL Low 0.83-4.51 [facility] Absolute neutrophil countOrd ered By: Finn Cornejo on 03-03-2025 Neutrophils (Bld) [#/Vol] 4.8 10*3/uL 2.0-7.7 [facility] Anion gap in Serum or Plasma Ordered By: Finn Cornejo on 03-03-2025 Anion gap [Moles/Vol] 9 mmol/L - [facility] Automated lymphocyte count a s percentage of total leukocytesOrdered By: Finn Cornejo on 03-03-2025 Lymphocytes/100 WBC Auto (Unsp spec) 12.4 % Low 19-41 [facility] BUN/creatinine ratioOrdered By: Finn Cornejo on 03-03-2025 Urea nitrogen/Creatinine [Mass ratio] 41.4 mg/mg High 10-20 [facility] Basophil percentageOrdered B y: Finn Cornejo on 03-03-2025 Basophils/100 WBC (Bld) 0.2 % 0-1 [facility] Bilirubin, totalOrdered By: Finn Cornejo on 03-03-2025 Bilirubin [Mass/Vol] 0.41 mg/dL 0.00-1.30 [facility] Carbon dioxide, total [Moles /volume] in Central venous bloodOrdered By: Finn Cornejo on 03-03-2025 CO2 [Moles/Vol] 21.7 mmol/L 21.0-32.0 [facility] Chloride assayOrdered By: Stephon Cornejo on 03-03-2025 Chloride [Moles/Vol] 106 mmol/L 98-108 [facility] Eosinophil percentageOrdered By: Finn Cornejo on 03-03-2025 Eosinophils/100 WBC (Bld) 1.6 % 0-5 [facility] Erythrocyte distribution wid th ratioOrdered By: Finn Cornejo on 03-03-2025 Erythrocyte distribution width (RBC) [Ratio] 17.6 % High 11.6-14.6 [facility] Erythrocyte distribution wid th standard deviationOrdered By: Finn Cornejo on 03-03-2025 Erythrocyte distribution width (RBC) [Ratio] 63.5 fl High 35.1-43.9 [facility] Glomerular filtration rate ( GFR) estimation/1.73 sq m using serum, plasma, or whole bOrdered By: Finn Cornejo on 03-03-2025 GFR/1.73 sq M.predicted among non-blacks MDRD (S/P/Bld) [Vol rate/Area] 92 mL/min/{1.73_m2} >60 [facility] Comment on above: mL/min/1.73m2 CKD-EP I Creatinine Equation (2020) Hematocrit Auto (Bld) [Volum e fraction]Ordered By: Finn Cornejo on 03-03-2025 Hematocrit (Bld) [Volume fraction] 22.4 % Low 40-54 [facility] Hemoglobin measurementOrdere d By: Finn Cornejo on 03-03-2025 Hemoglobin (Bld) [Mass/Vol] 7.0 g/dL Low 13.0-16.5 [facility] Immature granulocytes/100 WB C Auto (Bld)Ordered By: Finn Cornejo on 03-03-2025 Immature granulocytes/100 WBC (Bld) 0.800 % 0.0-0.9 [facility] Comment on above: IG% - Immature Granu locytes (promyelocytes, myelocytes and metamyelocytes) > 1% indicates that a LEFT SHIFT is Present. Laboratory - Chemistry and C hemistry - challengeOrdered By: Finn Cornejo on 03-03-2025 AST [Catalytic activity/Vol] 26 U/L <38 [facility] MCV (mean corpuscular volume ) determinationOrdered By: Finn Cornejo on 03-03-2025 MCV (RBC) [Entitic vol] 98.2 fL High 80-94 [facility] Mean corpuscular hemoglobin (MCH) determinationOrdered By: Finn Cornejo 03-03-2025 MCH (RBC) [Entitic mass] 30.7 pg 27.0-32.0 [facility] Mean corpuscular hemoglobin concentration (MCHC) determinationOrdered By: Finn Cornejo on 03-03-2025 MCHC (RBC) [Mass/Vol] 31.3 g/dL Low 32-[address] [facility] Mean platelet volume determi nationOrdered By: Finn Cornejo on 03-03-2025 Platelet mean volume (Bld) [Entitic vol] 9.7 fL 6.2-12.0 [facility] Monocyte percentageOrdered B y: Finn Cornejo on 03-03-2025 Monocytes/100 WBC (Bld) 7.3 % 0-10 [facility] Neutrophil percentageOrdered By: Finn Cornejo on 03-03-2025 Neutrophils/100 WBC (Bld) 77.7 % High 47-70 [facility] Nucleated red blood cell per centageOrdered By: Finn Cornejo on 03-03-2025 Nucleated RBC/100 WBC (Bld) [Ratio] 0 % 0-5 [facility] Platelet countOrdered By: Stephon Cornejo on 03-03-2025 Platelets (Bld) [#/Vol] 171 10*3/uL 150-450 [facility] Potassium measurement (mass/ volume)Ordered By: Finn Cornejo on 03-03-2025 Potassium (Unsp spec) [Mass/Vol] 4.7 mmol/L 3.3-5.1 [facility] RBC Auto (Bld) [#/Vol]Ordere d By: Finn Cornejo on 03-03-2025 RBC (Bld) [#/Vol] 2.28 10*6/uL Low 4.6-6.2 [facility] Serum creatinine measurement (mass/volume)Ordered By: Finn Cornejo on 03-03-2025 Creatinine [Mass/Vol] 0.73 mg/dL 0.70-1.[address] [facility] Serum globulin measurementOr dered By: Finn Cornejo on 03-03-2025 Globulin (S) [Mass/Vol] 2.2 g/dL 2.2-4.2 [facility] Serum glucose measurement (m ass/volume)Ordered By: Finn Cornejo on 03-03-2025 Glucose [Mass/Vol] 94 mg/dL 70-99 [facility] Serum or plasma alanine childress otransferase (ALT) measurementOrdered By: Finn Cornejo on 03-03-2025 ALT [Catalytic activity/Vol] 14 U/L <47 [facility] Serum or plasma albumin slade urement (mass/volume)Ordered By: Finn Cornejo on 03-03-2025 Albumin [Mass/Vol] 3.5 g/dL 3.4-4.8 [facility] Serum or plasma albumin/glob ulin mass ratioOrdered By: Finn Cornejo on 03-03-2025 Albumin/Globulin [Mass ratio] 1.6 {ratio} 0.9-2.4 [facility] Serum or plasma alkaline sole sphatase measurementOrdered By: Finn Cornejo on 03-03-2025 ALP [Catalytic activity/Vol] 54 U/L 40-129 [facility] Serum or plasma calcium slade urement (mass/volume)Ordered By: Finn Cornejo on 03-03-2025 Calcium [Mass/Vol] 8.6 mg/dL 7.6-11.0 [facility] Serum or plasma urea nitroge n measurement (mass/volume)Ordered By: Finn Cornejo on 03-03-2025 Urea nitrogen [Mass/Vol] 30 mg/dL High 4-19 [facility] Sodium levelOrdered By: Renny Cornejo on 03-03-2025 Sodium [Moles/Vol] 137 mmol/L 133-145 [facility] Stool gastrointestinal hemog lobin detection by immunologic methodOrdered By: Ranulfo Subramanian on 03-03-2025 Lower GI hemoglobin IA Ql (Stl) Positive Abnormal [facility] Total proteinOrdered By: Larissa Cornejo on 03-03-2025 Protein [Mass/Vol] 5.8 g/dL Low 5.9-8.4 [facility] White blood cell (WBC) count Ordered By: Finn Cornejo on 03-03-2025 WBC (Bld) [#/Vol] 6.2 10*3/uL 4.4-11.0 [facility] CNPNon 01-15-2025 CNPN Telephone (AGPOB1) -- DIMITRI PAINTER ([id number]) 1945 M Date Time Provider Department 01/15/25 SUNNY OLMOS [facility] During your visit today, we recorded the following information about you: Madhavi Westbrook 01/15/2025 3:28 PM Signed Called patient to let him know surgical location has changed to Tamela Westbrook January 15, 2025 3:28 PM Allergies As of Date: 01/15/2025 Noted Allergy Reaction ANESTHESIA S/I-40 (PROPOFOL) (PRO*09/13/2022 14 - Other: See Comments Comments: With use of anesthesia knocks him out, doesn't need much per . Date Reviewed: 12/27/2024 Reviewed by: Michelle Gerardo LPN - Fully Assessed Prescriptions as of 01/15/2025 - lovastatin 40 mg tablet Take 1 tablet by mouth daily at bedtime. - TRELEGY ELLIPTA 200-62.5-25 mcg inhalation powder USE 1 INHALATION BY MOUTH ONCE DAILY AT THE SAME TIME EACH DAY DIRECTED - sodium chloride (NEBUSAL) 3 % nebulizer solution Use 4 mL via nebulizer two times a day as needed for cough (to help thin secretions). - docusate sodium (COLACE) 100 mg capsule once daily. - guaiFENesin (MUCINEX) 600 mg 12 hr tablet Take 2 tablets by mouth two times a day. - albuterol (PROVENTIL) 2.5 mg /3 mL (0.083 %) nebulizer solution Use 3 mL via nebulizer every 4 hours as needed for wheezing/shortness of breath. Use over 5-15minutes. - fluticasone (FLONASE) 50 mcg/actuation nasal spray Use 1-2 Sprays in each nostril once daily. - albuterol HFA (PROAIR HFA) 90 mcg/actuation inhaler Inhale 2 Puffs by mouth every 4 hours as needed for wheezing/shortness of breath. Take as directed - OXYGEN, HOME THERAPY, 2 L/min by Nasal Cannula route continuous. - vit A,C,Y-Guor-Nimiqn (PRESERVISION AREDS) 2,148 mcg-113 mg-45 mg-17.4mg tab Take 1 tablet by mouth twice daily. - aspirin, enteric coated (ASPIRIN, ENTERIC COATED) 81 mg EC tablet Take 81 mg by mouth once daily. Indications: prevention of transient ischemic attack - acetaminophen (TYLENOL) 500 mg tablet Take 2 tablets by mouth every 6 hours as needed for pain. Indications: pain - Propylene Glycol-Glycerin 1-0.3 % drop Use in both eyes. - TIMOLOL MALEATE OPHTHALMIC Use in eyes. Left eye Problem List As Of Date 01/15/2025 Noted Resolved Hyperlipidemia [E78.5] 06/22/2011 Hypertension [I10] 06/22/2011 12/08/2020 Basal cell carcinoma [C44.91] 07/09/2012 BPH (benign prostatic hyperplasia) [N40.0] 07/26/2012 11/17/2017 Elevated prostate specific antigen (PSA) [R97.2*07/26/2012 11/17/2017 Prostate cancer (HCC) [C61] 08/09/2012 10/28/2024 Lumbosacral pain [M54.50] 03/11/2013 Trochanteric bursitis [M70.60] 03/14/2013 11/17/2017 Pneumothorax [J93.9] 08/28/2022 Nicotine use disorder, F17.2 [F17.200] 08/28/2022 Severe protein-calorie malnutrition (HCC) [E43] 08/29/2022 12/21/2023 Chronic hypoxemic respiratory failure (HCC) [J9*10/28/2024 Pulmonary emphysema, unspecified emphysema type*10/28/2024 Encounter Status:Closed by MADHAVI WESTBROOK on 01/15/25 [facility] CNOV 12-27-2024 [facility] -- MADINADIMITRI MART ([id number]) 1945 M Date Time Provider Department 12/27/24 1:00 PM [facility] During your visit today, we recorded the following information about you: Pulse Respiration Blood pressure Weight 86/minute 16/minute 136/89 57.2 kg Jens Candelaria, EDUARD.[employer]ER 12/27/2024 1:17 PM Signed Chief Complaint Patient presents with: 6 Month Exam HPI Dimitri Painter is a 79 year old male who presents here today for above reason. Dimitri is a 79-year-old male, with a history of emphysema, hypercholesterolemia, and recent anemia, presenting for a routine follow-up. Dimitri has a scheduled left hip surgery on April 02, with a possibility of an earlier date if a cancellation occurs. He is currently on several medications, including Tylenol and aspirin as needed, lovastatin 40 mg for hypercholesterolemia, and an inhaler for emphysema. He uses oxygen at home at night, prescribed by Dr. Neves at 2 liters, and has a portable tank available if needed. Recent lab results show an LDL of 89, which is the lowest it has been in a couple of years. Kidney function, electrolytes, glucose, and liver enzymes are all normal. PSA levels are very low. Hemoglobin levels have increased from 10.0 on October 24 to 12.5, indicating improvement in anemia. Dimitri received 4 pints of blood during a recent episode of blood loss. Past medical history, appointments, medications, allergies reviewed. EXAM: BP 136/89 (BP Position: Sitting) Pulse 86 Resp 16 Wt 57.2 kg (126 lb) SpO2 97% BMI 21.63 kg/m? General Appearance: Well appearing, alert, in no acute distress, well-hydrated, well nourished.. Lungs: Lungs clear to auscultation. No wheezing, rhonchi, rales.. Heart: RRR without murmur, gallop, or rubs. No ectopy. Latest Ref Rng 12/25/2024 Protein, Total 6.3 - 8.0 g/dL 7.5 Albumin 3.9 - 4.9 g/dL 4.3 Calcium 8.5 - 10.2 mg/dL 9.8 Bilirubin, Total 0.2 - 1.3 mg/dL 0.4 Alkaline Phosphatase 38 - 113 U/L 80 AST 14 - 40 U/L 28 ALT 10 - 54 U/L 18 Glucose 74 - 99 mg/dL 78 BUN 9 - 24 mg/dL 12 Creatinine 0.73 - 1.22 mg/dL 0.65 (L) Sodium 136 - 144 mmol/L 137 Potassium 3.7 - 5.1 mmol/L 4.4 Chloride 98 - 107 mmol/L 101 CO2 22 - 30 mmol/L 27 Anion Gap 8 - 15 mmol/L 9 eGFR >=60 mL/min/1.73m? 95 WBC 3.70 - 11.00 k/uL 4.68 RBC 4.20 - 6.00 m/uL 4.75 Hemoglobin 13.0 - 17.0 g/dL 12.5 (L) Hematocrit 39.0 - 51.0 % 41.9 MCV 80.0 - 100.0 fL 88.2 MCH 26.0 - 34.0 pg 26.3 MCHC 30.5 - 36.0 g/dL 29.8 (L) RDW-CV 11.5 - 15.0 % 21.8 (H) Platelet Count 150 - 400 k/uL 208 MPV 9.0 - 12.7 fL 9.6 Absolute nRBC <0.01 k/uL <0.01 Cholesterol, Total <200 mg/dL 164 Triglyceride <150 mg/dL 64 HDL Cholesterol >39 mg/dL 62 LDL Cholesterol, Calculated <100 mg/dL 89 Non HDL Cholesterol <130 mg/dL 102 VLDL Cholesterol <30 mg/dL 10 TC:HDL Ratio <5.10 2.65 LDL:HDL Ratio <2.54 1.44 Fasting Time hrs 10 PSA <2.60 ng/mL 0.11 1. Mixed hyperlipidemia (E78.2) Hyperlipidemia, unspecified hyperlipidemia type (E78.5) LDL cholesterol level is 89 mg/dL, the lowest it has been in several years. Current management with Lovastatin 40 mg daily is effective. Continue Lovastatin 40 mg daily. 2. Pulmonary emphysema, unspecified emphysema type (HCC) (J43.9) Stable on current inhaler therapy. Patient uses supplemental oxygen at night, prescribed by Dr. Neves, at 2 L/min. Patient has a portable oxygen tank available for use as needed. Continue current inhaler and nighttime oxygen therapy at 2 L/min. 3. Anemia, unspecified type (D64.9) Hemoglobin level has improved from 10.0 g/dL on 10/24 to 12.5 g/dL currently, indicating recovery from previous blood loss. MCHC and RDW-CV values are slightly abnormal but consistent with recent anemia. Renal function is normal with a GFR of 95 mL/min/1.73 m?. Monitor hemoglobin levels with a follow-up CBC prior to scheduled surgery on 04/02. 4. Left hip pain (M25.552) Scheduled for left hip surgery on 04/02. Await surgical intervention. Jens Candelaria APRN.ANTONI RTO as scheduled in February This note was partly generated using E[employer] voice recognition dictation and may contain some misspelled or inaccurate words missed on review. The patient consented to the use of ambient [employer] software for draft documentation of the visit consistent with [facility]?s Notice of Privacy Practices. Jens Candelaria APRN.CNP 12/27/2024 1:14 PM Addendum We discussed your upcoming surgery: - You are scheduled for left hip surgery on April 02, unless an earlier cancellation becomes available. Please follow any pre-surgical instructions provided by your surgical team. We discussed your medications: - Continue taking Lovastatin 40 mg daily for cholesterol management. Your cholesterol levels, including LDL, are well-controlled. - Continue taking aspirin as directed for heart health. - Contin (more content not included)... Normal [facility] CBC panel Auto (Bld)on 12-25 Erythrocyte distribution width (RBC) [Ratio] 21.8 % High 11.5-15.0 [facility] Comment on above: Order Comment: Speci men Type: BLOOD SPECIMENOrdering Facility: [facility] Address: [address] [place] [address] Performed By: #### 5 8410-2 ####[facility] [id number] [address] [place] Hematocrit (Bld) [Volume fraction] 41.9 % Normal 39.0-51.0 [facility] Comment on above: Order Comment: Speci men Type: BLOOD SPECIMENOrdering Facility: [facility] Address: [address] [place] [address] Performed By: #### 5 8410-2 ####[facility] [id number] [address] [place] Hemoglobin (Bld) [Mass/Vol] 12.5 g/dL Low 13.0-17.0 [facility] Comment on above: Order Comment: Speci men Type: BLOOD SPECIMENOrdering Facility: [facility] Address: [address] [place] [address] Performed By: #### 5 8410-2 ####[facility] [id number] [place] [address] [place] MCH (RBC) [Entitic mass] 26.3 pg Normal 26.0-34.0 [facility] Comment on above: Order Comment: Speci men Type: BLOOD SPECIMENOrdering Facility: [facility] Address: [address] [place] [address] Performed By: #### 5 8410-2 ####[facility] [id number] [place] [address] [place] MCHC (RBC) [Mass/Vol] 29.8 g/dL Low 30.5-36.0 [facility] Comment on above: Order Comment: Speci men Type: BLOOD SPECIMENOrdering Facility: [facility] Address: [address] [place] [address] Performed By: #### 5 8410-2 ####[facility] [id number] [place] [address] [place] MCV (RBC) [Entitic vol] 88.2 fL Normal 80.0-100.0 [facility] Comment on above: Order Comment: Speci men Type: BLOOD SPECIMENOrdering Facility: [facility] Address: [address] [place] [address] Performed By: #### 5 8410-2 ####[facility] [id number] [place] [address] [place] Nucleated RBC (Bld) [#/Vol] 10*3/uL Normal <0.01 [facility] Comment on above: Order Comment: Speci men Type: BLOOD SPECIMENOrdering Facility: [facility] Address: [address] [place] [address] Performed By: #### 5 8410-2 ####[facility] [id number] [place] [address] [place] Platelet mean volume (Bld) [Entitic vol] 9.6 fL Normal 9.0-12.7 [facility] Comment on above: Order Comment: Speci men Type: BLOOD SPECIMENOrdering Facility: [facility] Address: [address] [place] [address] Performed By: #### 5 8410-2 ####[facility] [id number] [address] [address] [place] Platelets (Bld) [#/Vol] 208 10*3/uL Normal 150-400 [facility] Comment on above: Order Comment: Speci men Type: BLOOD SPECIMENOrdering Facility: [facility] Address: [address] [place] [address] Performed By: #### 5 8410-2 ####[facility] [id number] [address] [address] [place] RBC (Bld) [#/Vol] 4.75 10*6/uL Normal 4.20-6.00 [facility] Comment on above: Order Comment: Speci men Type: BLOOD SPECIMENOrdering Facility: [facility] Address: [address] [place] [address] Performed By: #### 5 8410-2 ####[facility] [id number] [place] [address] [place] WBC (Bld) [#/Vol] 4.68 10*3/uL Normal 3.70-11.00 [facility] Comment on above: Order Comment: Speci men Type: BLOOD SPECIMENOrdering Facility: [facility] Address: [address] [place] [address] Performed By: #### 5 8410-2 ####[facility] [id number] [place] [id number] [place] Comprehensive metabolic 2000 panelon 12-25-2024 Albumin [Mass/Vol] 4.3 g/dL Normal 3.9-4.9 [facility] Comment on above: Order Comment: Speci men Type: BLOOD SPECIMENOrdering Facility: [facility] Address: [address] [place] [address] Performed By: #### 2 4331-1, 28928-9 ####[facility] [id number] [id number] [address] [place] ALP [Catalytic activity/Vol] 80 U/L Normal 38-113 [facility] Comment on above: Order Comment: Speci men Type: BLOOD SPECIMENOrdering Facility: [facility] Address: [address] [place] [address] Performed By: #### 2 4331-1, 17558-7 ####[facility] [id number] [place] [id number] [place] ALT [Catalytic activity/Vol] 18 U/L Normal 10-54 [facility] Comment on above: Order Comment: Speci men Type: BLOOD SPECIMENOrdering Facility: [facility] Address: [address] [place] [address] Performed By: #### 2 4331-1, 55755-6 ####[facility] [id number] [place] [address] [place] Anion gap [Moles/Vol] 9 mmol/L Normal 8-15 [facility] Comment on above: Order Comment: Speci men Type: BLOOD SPECIMENOrdering Facility: [facility] Address: [address] [place] [address] Performed By: #### 2 4331-1, ####[facility] [id number] [place] [id number] [place] AST [Catalytic activity/Vol] 28 U/L Normal 14-40 [facility] Comment on above: Order Comment: Speci men Type: BLOOD SPECIMENOrdering Facility: [facility] Address: [address] [place] [address] Performed By: #### 2 4331-1, 48032-0 ####[facility] LABCLIA [id number] [address] [address] [place] Bilirubin [Mass/Vol] 0.4 mg/dL Normal 0.2-1.3 [facility] Comment on above: Order Comment: Speci men Type: BLOOD SPECIMENOrdering Facility: [facility] Address: [address] [place] [address] Performed By: #### 2 4331-1, ####[facility] LABCLIA [id number] [address] [address] [place] Calcium [Mass/Vol] 9.8 mg/dL Normal 8.5-10.2 [facility] Comment on above: Order Comment: Speci men Type: BLOOD SPECIMENOrdering Facility: [facility] Address: [address] [place], [place] [id number] Performed By: #### 2 433-, ####[facility] LABCLIA [id number] [address] [address] [place] Chloride [Moles/Vol] 101 mmol/L Normal 98-107 [facility] Comment on above: Order Comment: Speci men Type: BLOOD SPECIMENOrdering Facility: [facility] Address: [address] [place], [place] [id number] Performed By: #### 2 433-, ####[facility] LABIA [id number] [place] [id number] [place] CO2 [Moles/Vol] 27 mmol/L Normal 22-30 [facility] Comment on above: Order Comment: Speci men Type: BLOOD SPECIMENOrdering Facility: [facility] Address: [address] [place] [address] Performed By: #### 2 433-, ####[facility] LABIA [id number] [address] [address] [place] Creatinine [Mass/Vol] 0.65 mg/dL Low 0.73-1.22 [facility] Comment on above: Order Comment: Speci men Type: BLOOD SPECIMENOrdering Facility: [facility] Address: [address] [place] [address] Performed By: #### 2 4331-1, 88904-5 ####[facility] LABCLIA [id number] [place] [address] [place] Creatinine and Glomerular filtration rate.predicted panel (S/P/Bld) 95 mL/min/1.73m??? Normal >=60 [facility] Comment on above: Order Comment: Specbeba cruz Type: BLOOD SPECIMENOrdering Facility: [facility] Address: [address] [place] [address] Result Comment: Imelda mated Glomerular Filtration Rate (eGFR) is calculated using the 2020 CKD-EPI creatinine equation. This equation utilizes serum creatinine, sex, and age as parameters. The creatinine assay has traceable calibration to isotope dilution-mass spectrometry. Refer to KDIGO guidelines for clinical interpretation. In patients with unstable renal function, e.g. those with acute kidney injury, the eGFR may not accurately reflect actual GFR. Performed By: #### 2 4331-1, 65700-4 ####[facility] LABIA [id number] [place] [address] [place] Glucose [Mass/Vol] 78 mg/dL Normal 74-99 [facility] Comment on above: Order Comment: Leora cruz Type: BLOOD SPECIMENOrdering Facility: [facility] Address: [address] [place] [address] Result Comment: The [place] Diabetes Association (ADA) provides guidance for cutoff values for fasting glucose and random glucose. The ADA defines fasting as no caloric intake for at least 8 hours. Fasting plasma glucose results between 100 to 125 mg/dL indicate increased risk for diabetes (prediabetes). Fasting plasma glucose results greater than or equal to 126 mg/dL meet the criteria for diagnosis of diabetes. In the absence of unequivocal hyperglycemia, results should be confirmed by repeat testing. In a patient with classic symptoms of hyperglycemia or hyperglycemic crisis, random plasma glucose results greater than or equal to 200 mg/dL meet the criteria for diagnosis of diabetes. Reference: Standards of Medical Care in Diabetes 2016, [place] Diabetes Association. Diabetes Care. 2016.39(Suppl 1). Performed By: #### 2 4331-1, 86447-5 ####[facility] LABCLIA [id number] [address] [address] [place] Potassium [Moles/Vol] 4.4 mmol/L Normal 3.7-5.1 [facility] Comment on above: Order Comment: Speci men Type: BLOOD SPECIMENOrdering Facility: [facility] Address: [address] [place] [address] Performed By: #### 2 4331-1, 78199-0 ####[facility] LABCLIA [id number] [address] [address] [place] Protein [Mass/Vol] 7.5 g/dL Normal 6.3-8.0 [facility] Comment on above: Order Comment: Speci men Type: BLOOD SPECIMENOrdering Facility: [facility] Address: [address] [place] [address] Performed By: #### 2 4331-1, 87019-1 ####[facility] LABIA [id number] [place] [id number] [place] Sodium [Moles/Vol] 137 mmol/L Normal 136-144 [facility] Comment on above: Order Comment: Speci men Type: BLOOD SPECIMENOrdering Facility: [facility] Address: [address] [place] [address] Performed By: #### 2 4331-1, 33727-4 ####[facility] LABIA [id number] [address] [address] [place] Urea nitrogen [Mass/Vol] 12 mg/dL Normal 9-24 [facility] Comment on above: Order Comment: Speci men Type: BLOOD SPECIMENOrdering Facility: [facility] Address: [address] [place], [place] [phone] Performed By: #### 2 4331-1, 96902-7 ####[facility] LABCLIA [id number] [address] [address] [place] Lipid 1996 panelon 5 Cholesterol [Mass/Vol] 164 mg/dL Normal <200 [facility] Comment on above: Order Comment: Speci men Type: BLOOD SPECIMENOrdering Facility: [facility] Address: [address] [place] [address] Result Comment: <200 mg/dL, Desirable 200-239 mg/dL, Borderline high >239 mg/dL, High Performed By: #### 2 4331-1, 46819-2 ####[facility] LABCLIA [id number] [id number] [address] [place] Cholesterol in HDL [Mass/Vol] 62 mg/dL Normal >39 [facility] Comment on above: Order Comment: Speci men Type: BLOOD SPECIMENOrdering Facility: [facility] Address: [address] [place] [address] Result Comment: 40-5 9 mg/dL, Acceptable >59 mg/dL, High: Negative risk factor for coronary heart disease <40 mg/dL, Low: Positive risk factor for coronary heart disease Performed By: #### 2 4331-1, 56809-8 ####[facility] LABCLIA [id number] [address] [id number] [address] [place] Cholesterol in LDL [Mass/Vol] 89 mg/dL Normal <100 [facility] Comment on above: Order Comment: Speci men Type: BLOOD SPECIMENOrdering Facility: [facility] Address: [address] [place] [address] Result Comment: <100 mg/dL, Optimal 100-129 mg/dL, Near optimal/above optimal 130-159 mg/dL, Borderline high 160-189 mg/dL, High >189 mg/dL, Very high Secondary prevention optimal LDL Cholesterol levels are recommended to be <70 mg/dL LDL cholesterol is calculated using the Ramirez-NIH equation. Performed By: #### 2 4331-1, 92088-1 ####[facility] LABCLIA [id number] [id number] [address] [place] Cholesterol in LDL/Cholesterol in HDL [Mass ratio] 1.44 {ratio} Normal <2.54 [facility] Comment on above: Order Comment: Speci men Type: BLOOD SPECIMENOrdering Facility: [facility] Address: [address] [place] [address] Result Comment: Estevan marks: 1. National Cholesterol Education Program ATP III Guideline At-A-Glance Quick Desk Reference: National Heart, Lung, and Blood [place]. National Institutes of Health. 2001: NIH Publication No. 01-3305. 2. An International Atherosclerosis Society position paper: global recommendations for the management of dyslipidemia: executive summary, Atherosclerosis. 2014: 232(2):410-413. Performed By: #### 2 4331-1, ####[facility] LABCLIA [id number] [place] [address] [place] Cholesterol in VLDL [Mass/Vol] 10 mg/dL Normal <30 [facility] Comment on above: Order Comment: Leora anthony Type: BLOOD SPECIMENOrdering Facility: [facility] Address: [address] [place] [address] Performed By: #### 2 4331-1, ####[facility] LABCLIA [id number] [place] [address] [place] Cholesterol non HDL [Mass/Vol] 102 mg/dL Normal <130 [facility] Comment on above: Order Comment: Leora anthony Type: BLOOD SPECIMENOrdering Facility: [facility] Address: [address] [place] [address] Result Comment: <130 mg/dL, Optimal 130-159 mg/dL, Near optimal/above optimal 160-189 mg/dL, Borderline high 190-219 mg/dL, High >219 mg/dL, Very high Secondary prevention optimal non HDL Cholesterol levels are recommended to be <100 mg/dL Performed By: #### 2 4331-1, 30513-6 ####[facility] LABCLIA [id number] [address] [address] [place] Cholesterol.total/Krystal sterol in HDL [Mass ratio] 2.65 {ratio} Normal <5.10 [facility] Comment on above: Order Comment: Speci men Type: BLOOD SPECIMENOrdering Facility: [facility] Address: [address] [place], [place] [address] Performed By: #### 2 4331-1, 64372-7 ####[facility] LABCLIA [id number] [address] [place] [address] [place] FASTING TIME 10 hrs Normal [facility] Comment on above: Order Comment: Speci men Type: BLOOD SPECIMENOrdering Facility: [facility] Address: [address] [place] [address] Performed By: #### 2 4331-1, 29377-0 ####[facility] LABCLIA [id number] [address] [place] [address] [place] Triglyceride [Mass/Vol] 64 mg/dL Normal <150 [facility] Comment on above: Order Comment: Speci men Type: BLOOD SPECIMENOrdering Facility: [facility] Address: [address] [place] [address] Result Comment: <150 mg/dL, Normal 150-199 mg/dL, Borderline high 200-499 mg/dL, High >499 mg/dL, Very high Performed By: #### 2 4331-1, 86550-4 ####[facility] LABCLIA [id number] [address] [address] [place] PSA SerPl-ncon 12-25-2024 Prostate specific Ag [Mass/Vol] 0.11 ng/mL Normal <2.60 [facility] Comment on above: Order Comment: Speci men Type: BLOOD SPECIMENOrdering Facility: [facility] Address: [address] [place] [address] Result Comment: Tota l PSA test methodology used is the Electrochemiluminescence Immunoassay by [employer]. Total PSA values by differing methodologies cannot be interchanged. Performed By: #### 2 857-1 ####[facility] LABCLIA [id number] [address] [place] [address] [place] CNCOon 12-24-2024 CNCO Letter Text Normal [facility] DIMITRI PAINTER ([id number]) 1945 M Date Time Provider Department 12/24/24 OTILIA LOPEZ [facility] During your visit today, we recorded the following information about you: Tatiana Earl MA 12/24/2024 2:00 PM Signed Type of form: Surgical clearance form from PCP. Pt scheduled for TKR in March. Pre-op testing in February. Form received via fax When form is completed, Fax form to [phone] Form has been forwarded to Physician Desk: WERO Mcclellan Mark D, MD 12/26/2024 2:36 PM Signed Has appt with Jens Candelaria 12/27 Otilia Lopez MD Allergies As of Date: 12/24/2024 Noted Allergy Reaction ANESTHESIA S/I-40 (PROPOFOL) (PRO*09/13/2022 14 - Other: See Comments Comments: With use of anesthesia knocks him out, doesn't need much per . Date Reviewed: 12/23/2024 Reviewed by: Ankur Moseley LPN - Fully Assessed Reason for Visit: Forms [913] Cmt: Surgical clearance Prescriptions as of 12/26/2024 - lovastatin 40 mg tablet Take 1 tablet by mouth daily at bedtime. - TRELEGY ELLIPTA 200-62.5-25 mcg inhalation powder USE 1 INHALATION BY MOUTH ONCE DAILY AT THE SAME TIME EACH DAY DIRECTED - sodium chloride (NEBUSAL) 3 % nebulizer solution Use 4 mL via nebulizer two times a day as needed for cough (to help thin secretions). - docusate sodium (COLACE) 100 mg capsule once daily. - guaiFENesin (MUCINEX) 600 mg 12 hr tablet Take 2 tablets by mouth two times a day. - albuterol (PROVENTIL) 2.5 mg /3 mL (0.083 %) nebulizer solution Use 3 mL via nebulizer every 4 hours as needed for wheezing/shortness of breath. Use over 5-15minutes. - fluticasone (FLONASE) 50 mcg/actuation nasal spray Use 1-2 Sprays in each nostril once daily. - albuterol HFA (PROAIR HFA) 90 mcg/actuation inhaler Inhale 2 Puffs by mouth every 4 hours as needed for wheezing/shortness of breath. Take as directed - OXYGEN, HOME THERAPY, 2 L/min by Nasal Cannula route continuous. - vit A,C,X-Caxp-Qqoikp (PRESERVISION AREDS) 2,148 mcg-113 mg-45 mg-17.4mg tab Take 1 tablet by mouth twice daily. - aspirin, enteric coated (ASPIRIN, ENTERIC COATED) 81 mg EC tablet Take 81 mg by mouth once daily. Indications: prevention of transient ischemic attack - acetaminophen (TYLENOL) 500 mg tablet Take 2 tablets by mouth every 6 hours as needed for pain. Indications: pain - Propylene Glycol-Glycerin 1-0.3 % drop Use in both eyes. - TIMOLOL MALEATE OPHTHALMIC Use in eyes. Left eye Problem List As Of Date 12/24/2024 Noted Resolved Hyperlipidemia [E78.5] 06/22/2011 Hypertension [I10] 06/22/2011 12/08/2020 Basal cell carcinoma [C44.91] 07/09/2012 BPH (benign prostatic hyperplasia) [N40.0] 07/26/2012 11/17/2017 Elevated prostate specific antigen (PSA) [R97.2*07/26/2012 11/17/2017 Prostate cancer (HCC) [C61] 08/09/2012 10/28/2024 Lumbosacral pain [M54.50] 03/11/2013 Trochanteric bursitis [M70.60] 03/14/2013 11/17/2017 Pneumothorax [J93.9] 08/28/2022 Nicotine use disorder, F17.2 [F17.200] 08/28/2022 Severe protein-calorie malnutrition (HCC) [E43] 08/29/2022 12/21/2023 Chronic hypoxemic respiratory failure (HCC) [J9*10/28/2024 Pulmonary emphysema, unspecified emphysema type*10/28/2024 Encounter Status:Closed by OTILIA LOPEZ on 12/26/24 [facility] Telephone ([facility]) -- DIMITRI PAINTER ([id number]) 1945 M Date Time Provider Department 12/24/24 PATITO AMARAL [facility] During your visit today, we recorded the following information about you: Laurita Pringle 12/24/2024 10:51 AM Signed Type of form: Medical clearance for left JUANA DOS: 04/02/25 CAYETANO: 10/29/24 NOV: 03/11/25 Form received via fax When form is completed, Fax form to [phone] Form has been forwarded to Physician Mailbox: Dr. Patito Pringle Allergies As of Date: 12/24/2024 Noted Allergy Reaction ANESTHESIA S/I-40 (PROPOFOL) (PRO*09/13/2022 14 - Other: See Comments Comments: With use of anesthesia knocks him out, doesn't need much per . Date Reviewed: 12/23/2024 Reviewed by: Ankur Moseley LPN - Fully Assessed Reason for Visit: Medical Clearance [1983] Prescriptions as of 12/24/2024 - lovastatin 40 mg tablet Take 1 tablet by mouth daily at bedtime. - TRELEGY ELLIPTA 200-62.5-25 mcg inhalation powder USE 1 INHALATION BY MOUTH ONCE DAILY AT THE SAME TIME EACH DAY DIRECTED - sodium chloride (NEBUSAL) 3 % nebulizer solution Use 4 mL via nebulizer two times a day as needed for cough (to help thin secretions). - docusate sodium (COLACE) 100 mg capsule once daily. - guaiFENesin (MUCINEX) 600 mg 12 hr tablet Take 2 tablets by mouth two times a day. - albuterol (PROVENTIL) 2.5 mg /3 mL (0.083 %) nebulizer solution Use 3 mL via nebulizer every 4 hours as needed for wheezing/shortness of breath. Use over 5-15minutes. - fluticasone (FLONASE) 50 mcg/actuation nasal spray Use 1-2 Sprays in each nostril once daily. - albuterol HFA (PROAIR HFA) 90 mcg/actuation inhaler Inhale 2 Puffs by mouth every 4 hours as needed for wheezing/shortness of breath. Take as directed - OXYGEN, HOME THERAPY, 2 L/min by Nasal Cannula route continuous. - vit A,C,O-Obpf-Korobx (PRESERVISION AREDS) 2,148 mcg-113 mg-45 mg-17.4mg tab Take 1 tablet by mouth twice daily. - aspirin, enteric coated (ASPIRIN, ENTERIC COATED) 81 mg EC tablet Take 81 mg by mouth once daily. Indications: prevention of transient ischemic attack - acetaminophen (TYLENOL) 500 mg tablet Take 2 tablets by mouth every 6 hours as needed for pain. Indications: pain - Propylene Glycol-Glycerin 1-0.3 % drop Use in both eyes. - TIMOLOL MALEATE OPHTHALMIC Use in eyes. Left eye Problem List As Of Date 12/24/2024 Noted Resolved Hyperlipidemia [E78.5] 06/22/2011 Hypertension [I10] 06/22/2011 12/08/2020 Basal cell carcinoma [C44.91] 07/09/2012 BPH (benign prostatic hyperplasia) [N40.0] 07/26/2012 11/17/2017 Elevated prostate specific antigen (PSA) [R97.2*07/26/2012 11/17/2017 Prostate cancer (HCC) [C61] 08/09/2012 10/28/2024 Lumbosacral pain [M54.50] 03/11/2013 Trochanteric bursitis [M70.60] 03/14/2013 11/17/2017 Pneumothorax [J93.9] 08/28/2022 Nicotine use disorder, F17.2 [F17.200] 08/28/2022 Severe protein-calorie malnutrition (HCC) [E43] 08/29/2022 12/21/2023 Chronic hypoxemic respiratory failure (HCC) [J9*10/28/2024 Pulmonary emphysema, unspecified emphysema type*10/28/2024 Encounter Status:Closed by LAURITA PRINGLE on 12/24/24 [facility] CNOVon 12-23-2024 CNOV Office Visit (AGHWG1 ) -- DIMITRI PAINTER ([id number]) 1945 M Date Time Provider Department 12/23/24 2:00 PM SUNNY OLMOS [id number] During your visit today, we recorded the following information about you: Respiration Weight Height 14/minute 56.2 kg 1.626 m Sunny Olmos MD 12/23/2024 2:27 PM Signed Consultation requested by Dr. Cook for an opinion regarding left hip pain. My final recommendations will be communicated back to the requesting physician by way of shared Medical record or letter to requesting physician via US mail. Patient Visit Note Dimitri Painter is a 79 year old male who presents with complaint of Primary osteoarthritis of left hip (primary encounter diagnosis) Worsening left hip pain. Accompanied by his today. History of COPD. Lives in [place]. Current or previous treatment regimens: NSAIDS Medications: Current Outpatient Medications Medication Sig lovastatin 40 mg tablet Take 1 tablet by mouth daily at bedtime. TRELEGY ELLIPTA 200-62.5-25 mcg inhalation powder USE 1 INHALATION BY MOUTH ONCE DAILY AT THE SAME TIME EACH DAY DIRECTED sodium chloride (NEBUSAL) 3 % nebulizer solution Use 4 mL via nebulizer two times a day as needed for cough (to help thin secretions). docusate sodium (COLACE) 100 mg capsule once daily. guaiFENesin (MUCINEX) 600 mg 12 hr tablet Take 2 tablets by mouth two times a day. albuterol (PROVENTIL) 2.5 mg /3 mL (0.083 %) nebulizer solution Use 3 mL via nebulizer every 4 hours as needed for wheezing/shortness of breath. Use over 5-15minutes. fluticasone (FLONASE) 50 mcg/actuation nasal spray Use 1-2 Sprays in each nostril once daily. albuterol HFA (PROAIR HFA) 90 mcg/actuation inhaler Inhale 2 Puffs by mouth every 4 hours as needed for wheezing/shortness of breath. Take as directed OXYGEN, HOME THERAPY, 2 L/min by Nasal Cannula route continuous. vit A,C,H-Qztc-Dcxslv (PRESERVISION AREDS) 2,148 mcg-113 mg-45 mg-17.4mg tab Take 1 tablet by mouth twice daily. aspirin, enteric coated (ASPIRIN, ENTERIC COATED) 81 mg EC tablet Take 81 mg by mouth once daily. Indications: prevention of transient ischemic attack acetaminophen (TYLENOL) 500 mg tablet Take 2 tablets by mouth every 6 hours as needed for pain. Indications: pain Propylene Glycol-Glycerin 1-0.3 % drop Use in both eyes. TIMOLOL MALEATE OPHTHALMIC Use in eyes. Left eye No current facility-administered medications for this visit. Allergies: ALLERGIES Allergen Reactions Anesthesia S/I-40 (* Other: See Comments With use of anesthesia knocks him out, doesn't need much per . Physical Examination: Resp 14 Ht 5' 4 (1.63m) Wt 124 lb (56.2kg) BMI 21.27 kg/(m2). Ortho Exam Antalgic gait with a cane Limited painful ROM of the left hip NVI Images: AP pelvis taken today and reviewed by myself shows severe bone on bone DJD of the left hip Procedures Assessment and Plan: 1. Primary osteoarthritis of left hip - ICD9: 715.15, ICD10: M16.12 The patient understands the diagnosis, treatment options both operative and non-operative, their associated risks, complications, benefits and failures and wishes to proceed with surgical intervention. The patient's ADL's have become more difficult including but not limited to decrease ability to ambulate. The patient reports their quality of life has decreased. The surgery the patient wishes to proceed with is a left JUANA DA. Prior to surgery it was recommended for the patient to be seen by their PCP for surgical optimization. In addition they will obtain dental clearance if they have not seen their dentist in the previous 6 months. They understand that surgery cannot be guaranteed to relieve all the symptoms and there is a small but unlikely chance that the symptoms could be worse rather than better. They understands the risks as significant as can occur, including but no limited to the additional risks of loss of limb, infection, deep venous thrombosis, pulmonary embolism, failure of this procedure, wound healing problems, neurovascular injury, continued pain, weakened and muscle atrophy, reflex sympathetic dystrophy and scarring and stiffness. They understand, all questions were answered, and the patient has been provided an informed consent. It was recommended to the patient to do prehab physical therapy, attend our hospital sponsored joint camp, and to stop herbal supplements prior to surgery. Post hospital care and rehabilitation plan was discussed. Patient verbalized understanding and an educational materials were provided. We have made the decision to move forward with a major orthopaedic surgery today, and this represents the highest form of medical decision-making complexity. The patient's diagnosis of Primary osteoarthritis of left hip (primary encounter diagnosis) represents a chronic pathology/diagnosis/injury that repre (more content not included)... [facility] (FRWS ) -- DIMITRI PAINTER ([id number]) 1945 M Date Time Provider Department 11/13/24 1:00 PM [facility] During your visit today, we recorded the following information about you: Zamzam Mattson MA 11/13/2024 2:08 PM Signed Patient presents with: Left Hip Pain: Referred by Dr. Lopez AMB ROOMING INTAKE FLOWSHEET DATA Risk Screening Do you have concerns about personal safety or safety in the home?: No Pain Pain Level: (1-9) Pain Location: Hip-Left Description: Dull, Aching, Radiating Duration Amount of Time: 5 Duration Units: Months Frequency: Continuous Intervention/Comfort measure: Medication Patient states he is having pain on the lateral aspect of his hip that radiates into his groin and buttock. States the pain can radiate down his leg as well. He was given Meloxicam for the pain in May and only dulled the pain. Taking Tylenol as needed for the pain and states it helps. X-rays done on 10/28/24. with patient today. JoeyKi Israel, 11/13/2024 2:08 PM Signed SERVICE DATE: November 13, 2024 PCP: Otilia Lopez MD Subjective Patient ID: Dimitri is a 79 year old male. Chief Complaint: Patient presents with: Left Hip Pain: Referred by Dr. Lopez PAIN EVALUATION 11/11/2024 1551 11/13/2024 1301 Pain Level: -- -- 1-9 Pain Location: Hip-Left Hip-Left Description: Aching;Dull Dull;Aching;Radiating Duration Amount of Time: -- 5 Duration Units: Months Months Frequency: Continuous Continuous Intervention/Comfort measure: Reposition;Cold;Support surface Medication HPI Patient presents today with left hip pain x 5 months. He states he has had pain in the past dating back about 13 years ago. No specific mechanism of injury that he is aware of. He has pain that he points to the lateral hip and to the groin. He states he has pain when he stands and walks. He was taking meloxicam but he had issues with urinary tract bleeding so he had to stop it. Review of Systems ACTIVE PROBLEM LIST Hyperlipidemia Basal Cell Carcinoma Lumbosacral Pain Pneumothorax Nicotine use disorder, F17.2 Chronic Hypoxemic Respiratory Failure (Hcc) Pulmonary Emphysema, Unspecified Emphysema Type (Hcc) PAST MEDICAL HISTORY Diagnosis Date Basal cell cancer right ear Cataract right eye Diverticulosis of colon (without mention of hemorrhage) Glaucoma High cholesterol Hypertension Personal history of colonic polyps Pulmonary emphysema, unspecified emphysema type (HCC) 10/28/2024 Squamous cell carcinoma right forearm PAST SURGICAL HISTORY Procedure Laterality Date COLONOSCOPY FLX DX W/COLLJ SPEC WHEN PFRMD age 59 Colonoscopy COLONOSCOPY FLX DX W/COLLJ SPEC WHEN PFRMD 01/05/2012 repeat 5 years CYSTOSCOPY N/A 10/16/2024 [facility] cauterization PROSTATECTOMY;RADICAL RETROPUBIC REPAIR RETINAL DETACHMENT SCLERAL BUCKLING Scleral Buckle FAMILY HISTORY Problem Relation Age of Onset Heart Mother age 65 Diabetes Father age 89 Cancer Sister breast Social History Tobacco Use Smoking status: Former Current packs/day: 0.00 Average packs/day: 0.5 packs/day for 40.0 years (20.0 ttl pk-yrs) Types: Cigarettes Start date: 08/25/1982 Quit date: 08/25/2022 Years since quittin.2 Smokeless tobacco: Never Tobacco comments: Pt stopped smoking the day he was admitted into the hospital. Vaping Use Vaping status: Never Used Substance Use Topics Alcohol use: No Comment: rare Drug use: No ALLERGIES Allergen Reactions Anesthesia S/I-40 (* Other: See Comments With use of anesthesia knocks him out, doesn't need much per . MEDICATIONS: lovastatin 40 mg tablet Take 1 tablet by mouth daily at bedtime. TRELEGY ELLIPTA 200-62.5-25 mcg inhalation powder USE 1 INHALATION BY MOUTH ONCE DAILY AT THE SAME TIME EACH DAY DIRECTED sodium chloride (NEBUSAL) 3 % nebulizer solution Use 4 mL via nebulizer two times a day as needed for cough (to help thin secretions). docusate sodium (COLACE) 100 mg capsule once daily. guaiFENesin (MUCINEX) 600 mg 12 hr tablet Take 2 tablets by mouth two times a day. albuterol (PROVENTIL) 2.5 mg /3 mL (0.083 %) nebulizer solution Use 3 mL via nebulizer every 4 hours as needed for wheezing/shortness of breath. Use over 5-15minutes. fluticasone (FLONASE) 50 mcg/actuation nasal spray Use 1-2 Sprays in each nostril once daily. albuterol HFA (PROAIR HFA) 90 mcg/actuation inhaler Inhale 2 Puffs by mouth every 4 hours as needed for wheezing/shortness of breath. Take as directed OXYGEN, HOME THERAPY, 2 L/min by Nasal Cannula route continuous. vit A,C,U-Eymp-Ewemfm (PRESERVISION AREDS) 2,148 mcg-113 mg-45 mg-17.4mg tab Take 1 tablet by mouth twice daily. aspirin, enteric coated (ASPIRIN, ENTERIC COATED) 81 mg EC tablet Take 81 mg by mouth once daily. Indications: prevention of tra (more content not included)... Normal [facility] Large Joint Arthro/Inj: L gr eater trochanteric bursaon 11-13-2024 Ki Cook V, DO 11/13/2024 2:08 PM Large Joint Arthro/Inj: L greater trochanteric bursa 11/13/2024 1:31 PM The procedure site was prepped in the usual sterile fashion. Site: L greater trochanteric bursa Medications: 6 mg betamethasone acetate-betamethasone sodium phosphate 6 mg/mL Anesthetics: 4 mL lidocaine (PF) 10 mg/mL (1 %); 4 mL BUPivacaine (PF) 0.5 % (5 mg/mL) Outcome: Tolerated well, no immediate complications Post-injection instructions were reviewed with the patient and the patient voiced understanding of these instructions. Informed Consent Consent Obtained: Verbal [place] Protocol SIGN IN TIME OUT [facility] CNOVon 10-29-2024 CNOV Office Visit ([facility] ) -- DIMITRI PAINTER ([id number]) 1945 M Date Time Provider Department 10/29/24 3:20 PM PATITO AMARAL [facility] During your visit today, we recorded the following information about you: Temperature Pulse Respiration Blood pressure 98.3 degrees 93/minute 16/minute 108/77 Weight Height 55.3 kg 1.644 m Patito Amraal MD 11/01/2024 5:50 AM Signed [facility] Established patientStage CHIEF COMPLIANT follow-up HISTORY OF PRESENT ILLNESS Interval history 10/29/2024 Patient is here for follow-up visit. Last visit with Renetta Chery 05/09/2024 Today patient denies significant respiratory symptoms including shortness of breath, cough, wheezing or sputum production. He continues on Trelegy once daily. He rarely required to use albuterol rescue inhaler. He was recently admitted to [facility] for acute blood loss anemia in the setting of hematuria. Interval history 10/30/2023 Patient is here for follow-up visit. Today he denies significant respiratory symptoms including shortness of breath, cough, wheezing or sputum production. Since last visit he did not have any episodes of acute exacerbation requiring systemic steroid/antibiotics, ED visits or hospitalization. He is currently on ICS/LABA/LAMA (Trelegy) and albuterol as needed. He will rarely require to use his rescue inhaler. Today he is off continuous supplemental oxygen with O2 saturation 93%. He stated that he has been using his oxygen mostly with activity and exertion. Also for the last few weeks he has not been using nocturnal oxygen due to nasal dryness and epistaxis sometimes. Interval history 03/07/2023 Today patient continue to report improvement in his symptoms. He started pulmonary rehabilitation and already feels further improvement in his ability to do more activities. He continues on ICS/LABA/LAMA (Trelegy) and albuterol as needed. He will rarely require to use his rescue inhaler. He is on continuous supplemental oxygen, 2 L/min. Interval history 11/21/2022 Today patient reports significant improvement in his symptoms since he started Trelegy. He is able to do more activities with minimal shortness of breath. He denies significant cough or sputum production. He is currently on Trelegy and albuterol as needed. He did not require to use rescue inhaler frequently. He reports 11 pound weight gain. He continues on continuous supplemental oxygen, 2 L/min. He has not started pulmonary rehabilitation but has been on the waiting list to start soon. Initial history 09/28/2022 Dimitri Painter is a 77 year old male with past medical history significant for tobacco use disorder, hyperlipidemia and glaucoma who presents today for posthospitalization follow-up for emphysema and left pneumothorax. He initially presented to [facility] on 08/25/22 with chest pain and shortness of breath and was found to have left-sided pneumothorax. CT chest showed multiple blebs. He had a chest tube placed and has a persistent air leak. He was transferred to [facility] on 08/27/22 for assessment of his chest tube and possibly blebectomy versus pleurodesis. Sputum culture grew gram-negative cocci treated with Abx. CT surgery consulted. CT chest initially placed 08/25 for large lateral bleb with compressive atelectasis, Chest tube upsized by IR on 08/31, changed to ws 09/03, clamped 09/04 and removed on 09/05/2022 chest tube today, follow up post pull cxr did not show residual pneumothorax. Per CTS patient did not need pleurodesis at this point. Patient was discharged on 09/06/2022 with supplemental oxygen and albuterol inhaler Patient is on 2 L continuous supplemental oxygen, he reports normal O2 saturation at rest but his saturation dips down to nearly 80s or late 70s with activity. Also he still reports shortness of breath, episodes of cough and sputum production. He has history of tobacco use, more than [id number]. He did quit after this hospitalization. He has significant weight loss, per patient he lost 30+ pounds over the last year. He denies chest pain, fever, hemoptysis. REVIEW OF SYSTEMS Constitutional: Negative for appetite change, chills, diaphoresis and fever. HENT: Negative for dental problem, ear discharge, ear pain, facial swelling, nosebleeds. Respiratory: See HPI Cardiovascular: Negative for chest pain, palpitations and leg swelling. Gastrointestinal: Negative for abdominal distention, abdominal pain, anal bleeding, blood in stool, nausea and vomiting. Neurological: Negative for dizziness, seizures, speech difficulty and headaches. Psychiatric/Behavioral: Negative for confusion and hallucinations. PAST MEDICAL/SURGICAL/SOCIAL HISTORY PAST MEDICAL HISTORY Diagnosis Date Basal cell cancer right ear Cataract right eye Diverticulosis of colon (without mention of (more content not included)... Normal [facility] No Panel Informationon 10-29 [facility] Office Building 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 Start of test and EOFE criteria met. Current ATS/ERS acceptability and repeatability standards for lung volumes met. Current ATS/ERS acceptability and repeatability standards for DLCO met with 2 acceptable maneuvers. Ht Last patient height taken 10/29/2024. //KS IMPRESSION: Spirometry indicates moderate obstruction. Elevated lung volumes (RV and/or RV/TLC) indicate air trapping. The diffusing capacity (uncorrected for hemoglobin) is reduced. The reduced kCO (DLCO/VA) reflects an alteration of the normal transfer/diffusion of CO from the alveolar regions to the blood. Clinical correlation recommended. Electronically Signed On 10-29-2024 14:54:01 EST by Chas Langford MD Site: [id number] ID: [id number] Name: DIMITRI PAINTER Visit Date: 10/29/2024 Doctor: Solar System Installer: Norma David Age: 79 Date of : 1945 Gender: Male Race: White Height: 64.72 in Weight: 121.92 lbs BSA: 1.598 Diagnosis: Bullous emphysema_ Dyspnea: Cough: Wheeze: Tobacco Use: None Medications: Comments: Current ATS/ERS acceptability and repeatability standards for spirometry met. Start of test and EOFE criteria met. Current ATS/ERS acceptability and repeatability standards for lung volumes met. Current ATS/ERS acceptability and repeatability standards for DLCO met with 2 acceptable maneuvers. Ht Last patient height taken 10/29/2024. //KS Review Status: Not Reviewed PRE-BRONCH POST-BRONCH Pred LLN ULN Actual %Pred Actual %Chng SPIROMETRY FVC (L) 3.06 2.26 3.88 3.67 119 FEV1 (L) 2.29 1.65 2.90 1.18 51 FEV1/FVC 0.77 0.62 0.88 0.32 41 FEF25 (L/sec) 0.90 FEF50 (L/sec) 2.76 0.64 4.89 0.36 13 FEF75 (L/sec) 0.42 0.14 1.20 0.16 37 HZU79-84 (L/sec) 1.77 0.67 3.39 0.31 17 FEF Max (L/sec) 6.05 4.07 8.03 3.16 52 FIVC (L) 3.75 FIF50 (L/sec) 4.72 FIF Max (L/sec) 4.78 Time (sec) 16.23 SHWETA (L) 0.05 Time To FEF Max (sec) 0.07 LUNG VOLUMES SVC (L) 3.06 2.26 3.88 3.75 122 IC (L) 2.04 1.79 87 ERV (L) 1.02 1.95 191 FRC (Pleth) (L) 3.19 2.01 4.37 5.93 185 RV (Pleth) (L) 2.37 1.76 2.99 4.19 176 TLC (Pleth) (L) 5.99 4.69 7.30 7.90 131 RV/TLC (Pleth) (%) 39 32 46 53 136 DIFFUSION DLCOunc (ml/min/mmHg) 21.57 11.64 31.51 9.28 43 DLunc/VA 0.04 0.03 0.05 0.02 46 VA (L) 5.80 4.44 7.17 5.10 87 BHT (sec) 11.52 IVC (L) 3.66 PULMONARY FUNCTION LAB [facility] OXIMETRY WITH AMBULATIONon 0 10-29-2024 Frankie DamonNorma 10/29/2024 2:44 PM RESPIRATORY THERAPY OXIMETRY WITH AMBULATION Oximetry with Ambulation Test for This Encounter O2 Device O2 Adapter NC O2 Flow SpO2% HR Activity Ft Walked (ft) Time (min) Avg Speed (MPH) R/A 100 85 Resting R/A 97 105 Walking, usual pace 215 3 0.81 General Information Pulse Oximetry Site Total Time Spent Walking Assistance/O2 Supply Carrier Forehead 30 Wheeled Walker NAME: Normaangelica Damon PATIENT NAME: Dimitri Painter DATE: October 29, 2024 TIME: 2:44 PM Comment: pt unable to walk at faster pace [facility] SPIROMETRY BASELINE ONLYon 0 10-29-2024 DLCO (ml/min/mmHg) 9.28 ml/min/mm H g [facility] DLCO LLN (ml/min/mmHg) 11.64 ml/mi n/mmH g [facility] DLCO PREDICTED (ml/min/mmHg) 21.57 ml/min/mmH g [facility] DLCO ULN (ml/min/mmHg) 31.51 ml/mi n/mmH g [facility] DLCO/VA (ml/min/mmHg/L) 0.02 ml/m in/mmH g/L [facility] DLCO/VA PREDICTED (ml/min/mmHg/L) 0.04 ml/min/mmH g/L [facility] DLCO/VAcor (ml/min/mmHg/L) 0.02 ml/min/mmH g/L [facility] DLCOcor (ml/min/mmHg) 9.12 ml/min /mmH g [facility] DLCOcor PREDICTED (ml/min/mmHg) 21.57 ml/min/mmH g [facility] ERV BOX (L) 1.95 L [facility] ERV PREDICTED (L) 1.02 L/S [facility] FEF25% PRE (L/S) 0.9 L/S [facility] SHH97-18% LLN (L/S) 0.67 L/S [facility] LVW77-76% PRE (L/S) 0.31 L/S [facility] HIR89-25% PREDICTED (L/S) 1.77 L/S [facility] FEF75% LLN (L/S) 0.14 L/S [facility] FEF75% PRE (L/S0 0.16 L/S [facility] FEF75% PREDICTED (L/S) 0.42 L/S [facility] FEF75% ULN (L/S) 1.2 L/S [facility] FET PRE (S) 16.23 S [facility] FEV1 LLN (L) 1.65 L [facility] FEV1 PRE (L) 1.18 L [facility] FEV1 PREDICTED (L) 2.29 L [facility] FEV1 ULN (L) 2.9 L [facility] FEV1/FVC LLN (%) 62 % [facility] FEV1/FVC PRE (%) 32 % [facility] FEV1/FVC PREDICTED (%) 77 % [facility] FRC Box (L) 5.93 L [facility] FVC LLN (L) 2.26 L [facility] FVC PRE (L) 3.67 L [facility] FVC PREDICTED (L) 3.06 L [facility] FVC ULN (L) 3.88 L [facility] IC BOX (L) 1.79 L [facility] IC PREDICTED (L) 2.04 L/S [facility] PEF LLN (L/S) 4.07 L/S [facility] PEF PRE (L/S) 3.16 L/S [facility] PEF ULN (L/S) 8.03 L/S [facility] RV Box (L) 4.19 L [facility] RV Box PREDICTED (L) 2.37 L [facility] RV/TLC Box (%) 53 % [facility] RV/TLC Box PREDICTED (%) 39 % [facility] (L) 2.26 L/S [facility] SVC PREDICTED (L) 3.06 L/S [facility] SVC ULN (L) 3.88 L/S [facility] TLC Box (L) 7.9 L [facility] TLC Box PREDICTED (L) 5.99 L [facility] VA (L) 5.1 L [facility] VA PREDICTED (L) 5.8 L [facility] VC (L) BOX 3.75 L [facility] CNOVon 10-28-2024 CNOV Office Visit ([facility] ) -- DIMITRI PAINTER ([id number]) 1945 M Date Time Provider Department 10/28/24 1:20 PM OTILIA LOPEZ During your visit today, we recorded the following information about you: Pulse Respiration Blood pressure Weight 80/minute 18/minute 116/70 54.6 kg Otilia Lopez MD 10/28/2024 3:38 PM Signed Chief Complaint Patient presents with: Left Hip Pain HPI Dimitri Jina Madina is a 79 year old male who presents here today for hip pain. Pt in wheelchair today, here with his . Reevaluate the left hip pain which pt originally complained about in May but did not want to proceed with any testing or referrals. He was treated with Mobic 15 mg daily and if not improving in 2-4 weeks f/u to consider xray and or PT and or Ortho referral. Pt reports that Mobic medication has not helped as he still has pain, so he d/c medication due to recent dx of anemia. States pain has slightly increased from his previous visit. Has constant pain, especially when laying down and trying to get comfortable at night. Started using a cane to help keep him stable. Is able to walk but he does have a limp. When sitting pain is minimal, but if sitting for a prolonged period of time the pain does increase in aching and he will have to shift positions. Denies becoming off balance and falling due to his pain. Hx of bursitis to the left hip back in 2012, has done PT for this in past and been treated with Naprosyn. Reports pain is in the same hip, but is unable to recall if the pain he's experiencing is currently the same he's having. Resp status stable; follows with Pulm Anemia - Asking about lab results. Was dx with anemia in the hospital. States he's now able to walk without becoming short of breath. Was found to be bleeding in his bladder due to his history of radiation treatment for prostate cancer. Following with Dr Braun. Was in [facility] from 10/14/24 - 10/17/24. Has an appt with Dr. Braun on 11/14/24. Discharge Diagnosis (1) Symptomatic anemia: Status: Acute Code(s): D64.9 - Anemia, unspecified (2) Gross hematuria: Status: Acute Code(s): R31.0 - Gross hematuria (3) Painless hematuria: Status: Acute Code(s): R31.9 - Hematuria, unspecifie Chief Complaint: Dark urine, fatigue, SOB HPI Narrative DIMITRI PAINTER, is a 79-year-old male history of COPD, prostate cancer, former smoker presented [facility] ED 10/14/2024 due to fatigue, weight loss, poor appetite and increased shortness of breath. Has lost 9 pounds in 3 months and has no appetite or energy. He does wear oxygen at night because he is concerned he may have sleep apnea but never underwent formal testing. Has had dark-colored urine for 3 to 4 weeks and also has had a chronic left hip painsuspected to be due to bursitis and has been placed on NSAIDs. In the ED heart rate low 100s with initial blood pressure of 105/67 respiratory rate of 20. Pulse ox initially 79% but is then documented that was a poor waveform. Hemoglobin 4.8 with his last hemoglobin 14.5 on 01/06/2024. BMP with slightly elevated BUN of 21 otherwise within normal limits and liver profile within normal limits. Lactic acid 2.2. Patient typed and crossed for [address] abdomen pelvis obtained which showed dilated pancreatic duct with no suspicious mass, hepatic steatosis with hepatic cysts, significant stool burden, cholelithiasis and celiac artery pseudoaneurysm. Patient's UA with gross hematuria. Urology contacted and recommended admission. Hospitalist contacted for admission, patient evaluated at bedside and reports as above with the several weeks of fatigue, decreasing weight with poor p.o. intake and increasingshortness of breath. Patient reports his urine has been dark for 3 to 4 weeks and is intermittently darker than others. He does intermittently get constipated but reports he had a normal bowel movement earlier today. Occasionally gets a tight feeling in his chest over the past couple weeks as well but not presently having this concern. Currently patient receiving blood and reports he feels about the same as when he came in. Denies any nausea or vomiting, no abdominal pain, reports his only pain is some left hip pain for which she previously was taking meloxicam but did not find it helpful so he is no longer taking this. Patient denies any dark or bloody stool. Additionally patient reports he has been able to urinate well, did pass a clot earlier but otherwise has been feeling like he is emptying his bladder well, also denies anysuprapubic tenderness. Past medical history, appointments, medications, allergies reviewed. Previous Medical History PAST MEDICAL HISTORY Diagnosis Date Basal cell cancer right ear Cataract right eye Diverticulosis of colon (without mention of hemorrhage) Glaucoma High cholesterol Hype (more content not included)... Normal [facility] XR HIP 3V PELV+ AP/LAT LTon 10-28-2024 XR HIP 3V PELV+ AP/LAT LT * * *Final Report* * * DATE OF EXAM: Oct 28 2024 2:19PM WOX [id number] - XR HIP 3V PELV+ AP/LAT LT / PROCEDURE REASON: Left hip pain * * * * Physician Interpretation * * * * EXAMINATION: XR HIP 3V PELV+ AP/LAT LT CLINICAL HISTORY: Left hip pain Technique: XR HIP 3V PELV+ AP/LAT LT -- LEFT with 3 views on 3 images Comparison: None RESULT: No acute fracture or dislocation. Severe left hip joint space narrowing with subchondral sclerosis, subchondral cysts and marginal osteophytes. Moderate right hip joint space narrowing with marginal osteophytes. Degenerative disc disease of the lower lumbar spine. IMPRESSION: No acute fracture. Severe degenerative disease of the left hip. Features Editor: ANNEMARIE Transcribe Date/Time: Oct 28 2024 2:26P Dictated by : MANOJ AVILA MD This examination was interpreted and the report reviewed and electronically signed by: MANOJ AVILA MD on Oct 28 2024 2:28PM EST [id number] Normal [facility] XR Pelvis and Hip - left AP and Lateral frogon 10-28-2024 IMPRESSION: No acute fracture. Severe degenerative disease of the left hip. Features Editor: PSCB Transcribe Date/Time: Oct 28 2024 2:26P Dictated by : MANOJ AVILA MD This examination was interpreted and the report reviewed and electronically signed by: MANOJ AVILA MD on Oct 28 2024 2:28PM EST DIVISION OF RADIOLOGY * * *Final Report* * * DATE OF EXAM: Oct 28 2024 2:19PM WOX [id number] - XR HIP 3V PELV+ AP/LAT LT / PROCEDURE REASON: Left hip pain * * * * Physician Interpretation * * * * EXAMINATION: XR HIP 3V PELV+ AP/LAT LT CLINICAL HISTORY: Left hip pain Technique: XR HIP 3V PELV+ AP/LAT LT -- LEFT with 3 views on 3 images Comparison: None RESULT: No acute fracture or dislocation. Severe left hip joint space narrowing with subchondral sclerosis, subchondral cysts and marginal osteophytes. Moderate right hip joint space narrowing with marginal osteophytes. Degenerative disc disease of the lower lumbar spine. DIVISION OF RADIOLOGY Provider, [facility] - 10/28/2024 * * *Final Report* * * DATE OF EXAM: Oct 28 2024 2:19PM WOX [id number] - XR HIP 3V PELV+ AP/LAT LT / PROCEDURE REASON: Left hip pain * * * * Physician Interpretation * * * * EXAMINATION: XR HIP 3V PELV+ AP/LAT LT CLINICAL HISTORY: Left hip pain Technique: XR HIP 3V PELV+ AP/LAT LT -- LEFT with 3 views on 3 images Comparison: None RESULT: No acute fracture or dislocation. Severe left hip joint space narrowing with subchondral sclerosis, subchondral cysts and marginal osteophytes. Moderate right hip joint space narrowing with marginal osteophytes. Degenerative disc disease of the lower lumbar spine. IMPRESSION IMPRESSION: No acute fracture. Severe degenerative disease of the left hip. Features Editor: PSCB Transcribe Date/Time: Oct 28 2024 2:26P Dictated by : MANOJ AVILA MD This examination was interpreted and the report reviewed and electronically signed by: MANOJ AVILA MD on Oct 28 2024 2:28PM EST [facility] Radiology Study observation (narrative) [facility] XR Pelvis and Hip - left AP and Lateral frogOrdered By: [facility] Provider on 10-28-2024 [facility] CBC-Complete Blood Cnt No Di ffon 10-24-2024 Erythrocyte distribution width (RBC) [Ratio] 18.4 % High 11.6-14.6 [facility] Comment on above: Performed By: #### L 100.0500 #### [facility] [address] [place], [address] Hematocrit (Bld) [Volume fraction] 33.7 % Low 40-54 [facility] Comment on above: Performed By: #### L 100.0500 #### [facility] [address] [place], [address] Hemoglobin (Bld) [Mass/Vol] 10.0 g/dL Low 13.0-16.5 [facility] Comment on above: Performed By: #### L 100.0500 #### [facility] [address] [place], [address] MCH (RBC) [Entitic mass] 26.2 pg Low 27.0-32.0 [facility] Comment on above: Performed By: #### L 100.0500 #### [facility] [address] [place], [address] MCHC (RBC) [Mass/Vol] 29.7 g/dL Low 32-[address] [facility] Comment on above: Performed By: #### L 100.0500 #### [facility] [address] [place], [address] MCV (RBC) [Entitic vol] 88.2 fL Normal 80-94 [facility] Comment on above: Performed By: #### L 100.0500 #### [facility] [address] [place], [address] Platelet mean volume (Bld) [Entitic vol] 9.8 fL Normal 6.2-12.0 [facility] Comment on above: Performed By: #### L 100.0500 #### [facility] - [facility] [address] [place], [address] Platelets (Bld) [#/Vol] 255 10*3/uL Normal 150-450 [facility] Comment on above: Performed By: #### L 100.0500 #### [facility] [address] [place], [address] RBC (Bld) [#/Vol] 3.82 10*6/uL Low 4.6-6.2 [facility] Comment on above: Performed By: #### L 100.0500 #### [facility] [address] [place], [address] RDW SD 58.9 fl High 35.1-43.9 [facility] Comment on above: Performed By: #### L 100.0500 #### [facility] [address] [place], [address] WBC (Bld) [#/Vol] 5.9 10*3/uL Normal 4.4-11.0 [facility] Comment on above: Performed By: #### L 100.0500 #### [facility] [address] [place], [address] CNPMala 10-24-2024 ANTONIN Telephone (FAMWS) -- DIMITRI PAINTER ([id number]) 1945 M Date Time Provider Department 10/24/24 OTILIA LOPEZ During your visit today, we recorded the following information about you: Joan Miranda RN 10/24/2024 11:16 AM Signed Gisel OT from [facility] calls and states that she just evaluated patient and is not taking patient up for OT services. While there patient had complained of left hip pain as he previously had told Dr. Lopez of at appointment in May. Patient states that he is ready to do something about the left hip pain and is asking provider what the next steps are for this? Please review and advise, SHARDA Knox Mark D, MD 10/24/2024 11:40 AM Signed Noted I would suggest office visit to evaluate the hip, since it has been 4 months MD Joshua Chavarria Kathryn, MA 10/24/2024 2:18 PM Signed Message left for Gisel to call back. WERO Tomas Barbara, RN 10/24/2024 2:49 PM Signed Monday appt given to pt for 10/28/24 1320 pm Allergies As of Date: 10/24/2024 Noted Allergy Reaction ANESTHESIA S/I-40 (PROPOFOL) (PRO*09/13/2022 14 - Other: See Comments Comments: With use of anesthesia knocks him out, doesn't need much per . Date Reviewed: 06/27/2024 Reviewed by: Lyssa Lewis MA - Fully Assessed Reason for Visit: Patient Update [1234] Prescriptions as of 10/24/2024 - meloxicam (MOBIC) 15 mg tablet Take 1 tablet by mouth once daily. With food. - lovastatin 40 mg tablet Take 1 tablet by mouth daily at bedtime. - TRELEGY ELLIPTA 200-62.5-25 mcg inhalation powder USE 1 INHALATION BY MOUTH ONCE DAILY AT THE SAME TIME EACH DAY DIRECTED - sodium chloride (NEBUSAL) 3 % nebulizer solution Use 4 mL via nebulizer two times a day as needed for cough (to help thin secretions). - docusate sodium (COLACE) 100 mg capsule once daily. - guaiFENesin (MUCINEX) 600 mg 12 hr tablet Take 2 tablets by mouth two times a day. - albuterol (PROVENTIL) 2.5 mg /3 mL (0.083 %) nebulizer solution Use 3 mL via nebulizer every 4 hours as needed for wheezing/shortness of breath. Use over 5-15minutes. - fluticasone (FLONASE) 50 mcg/actuation nasal spray Use 1-2 Sprays in each nostril once daily. - albuterol HFA (PROAIR HFA) 90 mcg/actuation inhaler Inhale 2 Puffs by mouth every 4 hours as needed for wheezing/shortness of breath. Take as directed - OXYGEN, HOME THERAPY, 2 L/min by Nasal Cannula route continuous. - vit A,C,P-Cowc-Wmamis (PRESERVISION AREDS) 2,148 mcg-113 mg-45 mg-17.4mg tab Take 1 tablet by mouth twice daily. - aspirin, enteric coated (ASPIRIN, ENTERIC COATED) 81 mg EC tablet Take 81 mg by mouth once daily. Indications: prevention of transient ischemic attack - acetaminophen (TYLENOL) 500 mg tablet Take 2 tablets by mouth every 6 hours as needed for pain. Indications: pain - Propylene Glycol-Glycerin 1-0.3 % drop Use in both eyes. - TIMOLOL MALEATE OPHTHALMIC Use in eyes. Left eye Problem List As Of Date 10/24/2024 Noted Resolved Hyperlipidemia [E78.5] 06/22/2011 Hypertension [I10] 06/22/2011 12/08/2020 Basal cell carcinoma [C44.91] 07/09/2012 BPH (benign prostatic hyperplasia) [N40.0] 07/26/2012 11/17/2017 Elevated prostate specific antigen (PSA) [R97.2*07/26/2012 11/17/2017 Prostate cancer [C61] 08/09/2012 Lumbosacral pain [M54.50] 03/11/2013 Trochanteric bursitis [M70.60] 03/14/2013 11/17/2017 Pneumothorax [J93.9] 08/28/2022 Nicotine use disorder, F17.2 [F17.200] 08/28/2022 Severe protein-calorie malnutrition (HCC) [E43] 08/29/2022 12/21/2023 Encounter Status:Closed by NITZA BENÍTEZ on 10/24/24 Normal [facility] Erythrocyte distribution wid th ratioOrdered By: Balyne Trejo on 10-24-2024 Erythrocyte distribution width (RBC) [Ratio] 18.4 % High 11.6-14.6 [facility] Erythrocyte distribution wid th standard deviationOrdered By: Blayne Trejo on 10-24-2024 Erythrocyte distribution width (RBC) [Entitic vol] 58.9 fL High 35.1-43.9 [facility] Hematocrit Auto (Bld) [Volum e fraction]Ordered By: Blayne Trejo on 10-24-2024 Hematocrit (Bld) [Volume fraction] 33.7 % Low 40-54 [facility] Hemoglobin measurementOrdere d By: Blayne Trejo on 10-24-2024 Hemoglobin (Bld) [Mass/Vol] 10.0 g/dL Low 13.0-16.5 [facility] MCV (mean corpuscular volume ) determinationOrdered By: Blayne Trejo on 10-24-2024 MCV (RBC) [Entitic vol] 88.2 fL 80-94 [facility] Mean corpuscular hemoglobin (MCH) determinationOrdered By: Blayne Trejo on 10-24-2024 MCH (RBC) [Entitic mass] 26.2 pg Low 27.0-32.0 [facility] Mean corpuscular hemoglobin concentration (MCHC) determinationOrdered By: Blayne Trejo on 10-24-2024 MCHC (RBC) [Mass/Vol] 29.7 g/dL Low 32-[address] [facility] Mean platelet volume determi nationOrdered By: Blayne Trejo on 10-24-2024 Platelet mean volume (Bld) [Entitic vol] 9.8 fL 6.2-12.0 [facility] Platelet countOrdered By: Tai Trejo on 10-24-2024 Platelets (Bld) [#/Vol] 255 10*3/uL 150-450 [facility] RBC Auto (Bld) [#/Vol]Ordere d By: Blayne Trejo on 10-24-2024 RBC (Bld) [#/Vol] 3.82 10*6/uL Low 4.6-6.2 [facility] White blood cell (WBC) count Ordered By: Blayne Trejo on 10-24-2024 WBC (Bld) [#/Vol] 5.9 10*3/uL 4.4-11.0 [facility] DIMITRI PAINTER ([id number]) 1945 M Date Time Provider Department 10/23/24 [facility] During your visit today, we recorded the following information about you: Nova Hunter LPN 10/23/2024 2:08 PM Signed Mary from [facility] Home Health calling with plan of care, patient [place] going [place] the [place], 1 visit weekly for 1 week, then 2 visits weekly for 1 week, then 1 visit weekly for 1 week, then 2 visits weekly for 1 week, working on lower extremities strengthening, gait and balance training. Jens Candelaria APRN.LAST [employer]ER 10/24/2024 5:43 AM Signed Osbaldo noted plan. Jens Candelaria APRN.LAST GREASER Allergies As of Date: 10/23/2024 Noted Allergy Reaction ANESTHESIA S/I-40 (PROPOFOL) (PRO*09/13/2022 14 - Other: See Comments Comments: With use of anesthesia knocks him out, doesn't need much per . Date Reviewed: 06/27/2024 Reviewed by: Lyssa Lewis MA - Fully Assessed Reason for Visit: PT plan of care [Other] Prescriptions as of 10/24/2024 - meloxicam (MOBIC) 15 mg tablet Take 1 tablet by mouth once daily. With food. - lovastatin 40 mg tablet Take 1 tablet by mouth daily at bedtime. - TRELEGY ELLIPTA 200-62.5-25 mcg inhalation powder USE 1 INHALATION BY MOUTH ONCE DAILY AT THE SAME TIME EACH DAY DIRECTED - sodium chloride (NEBUSAL) 3 % nebulizer solution Use 4 mL via nebulizer two times a day as needed for cough (to help thin secretions). - docusate sodium (COLACE) 100 mg capsule once daily. - guaiFENesin (MUCINEX) 600 mg 12 hr tablet Take 2 tablets by mouth two times a day. - albuterol (PROVENTIL) 2.5 mg /3 mL (0.083 %) nebulizer solution Use 3 mL via nebulizer every 4 hours as needed for wheezing/shortness of breath. Use over 5-15minutes. - fluticasone (FLONASE) 50 mcg/actuation nasal spray Use 1-2 Sprays in each nostril once daily. - albuterol HFA (PROAIR HFA) 90 mcg/actuation inhaler Inhale 2 Puffs by mouth every 4 hours as needed for wheezing/shortness of breath. Take as directed - OXYGEN, HOME THERAPY, 2 L/min by Nasal Cannula route continuous. - vit A,C,U-Wywy-Zziqlw (PRESERVISION AREDS) 2,148 mcg-113 mg-45 mg-17.4mg tab Take 1 tablet by mouth twice daily. - aspirin, enteric coated (ASPIRIN, ENTERIC COATED) 81 mg EC tablet Take 81 mg by mouth once daily. Indications: prevention of transient ischemic attack - acetaminophen (TYLENOL) 500 mg tablet Take 2 tablets by mouth every 6 hours as needed for pain. Indications: pain - Propylene Glycol-Glycerin 1-0.3 % drop Use in both eyes. - TIMOLOL MALEATE OPHTHALMIC Use in eyes. Left eye Problem List As Of Date 10/23/2024 Noted Resolved Hyperlipidemia [E78.5] 06/22/2011 Hypertension [I10] 06/22/2011 12/08/2020 Basal cell carcinoma [C44.91] 07/09/2012 BPH (benign prostatic hyperplasia) [N40.0] 07/26/2012 11/17/2017 Elevated prostate specific antigen (PSA) [R97.2*07/26/2012 11/17/2017 Prostate cancer [C61] 08/09/2012 Lumbosacral pain [M54.50] 03/11/2013 Trochanteric bursitis [M70.60] 03/14/2013 11/17/2017 Pneumothorax [J93.9] 08/28/2022 Nicotine use disorder, F17.2 [F17.200] 08/28/2022 Severe protein-calorie malnutrition (HCC) [E43] 08/29/2022 12/21/2023 Encounter Status:Closed by JENS CANDELARIA on 10/24/24 [facility] C[facility]N Telephone ([facility] -- DIMITRI PAINTER ([id number]) 1945 M Date Time Provider Department 10/22/24 [facility] During your visit today, we recorded the following information about you: Joan Miranda RN 10/22/2024 1:59 PM Signed Nicol from [facility] calls to report plan of care for patient and penitentiary will visit patient 2 times a week for 1 week and 1 time a week for 2 weeks. [facility] will work with patient on Education and Monitoring of Anemia. Patient's hemoglobin at D/C on 10/17 was 9.5. Patient is getting hemoglobin re-checked at [facility] on 10/24/2024. Patient has had no urinary issues since patient had cystoscopy done on 10/16. No call back needed unless there are questions. SHARDA Knox Mark D, MD 10/22/2024 3:06 PM Signed Noted;agree with plan Otilia Lopez MD Allergies As of Date: 10/22/2024 Noted Allergy Reaction ANESTHESIA S/I-40 (PROPOFOL) (PRO*09/13/2022 14 - Other: See Comments Comments: With use of anesthesia knocks him out, doesn't need much per . Date Reviewed: 06/27/2024 Reviewed by: Lyssa Lewis MA - Fully Assessed Reason for Visit: [facility] Plan of Care [Other] Prescriptions as of 10/22/2024 - meloxicam (MOBIC) 15 mg tablet Take 1 tablet by mouth once daily. With food. - lovastatin 40 mg tablet Take 1 tablet by mouth daily at bedtime. - TRELEGY ELLIPTA 200-62.5-25 mcg inhalation powder USE 1 INHALATION BY MOUTH ONCE DAILY AT THE SAME TIME EACH DAY DIRECTED - sodium chloride (NEBUSAL) 3 % nebulizer solution Use 4 mL via nebulizer two times a day as needed for cough (to help thin secretions). - docusate sodium (COLACE) 100 mg capsule once daily. - guaiFENesin (MUCINEX) 600 mg 12 hr tablet Take 2 tablets by mouth two times a day. - albuterol (PROVENTIL) 2.5 mg /3 mL (0.083 %) nebulizer solution Use 3 mL via nebulizer every 4 hours as needed for wheezing/shortness of breath. Use over 5-15minutes. - fluticasone (FLONASE) 50 mcg/actuation nasal spray Use 1-2 Sprays in each nostril once daily. - albuterol HFA (PROAIR HFA) 90 mcg/actuation inhaler Inhale 2 Puffs by mouth every 4 hours as needed for wheezing/shortness of breath. Take as directed - OXYGEN, HOME THERAPY, 2 L/min by Nasal Cannula route continuous. - vit A,C,I-Nkwm-Liqbyv (PRESERVISION AREDS) 2,148 mcg-113 mg-45 mg-17.4mg tab Take 1 tablet by mouth twice daily. - aspirin, enteric coated (ASPIRIN, ENTERIC COATED) 81 mg EC tablet Take 81 mg by mouth once daily. Indications: prevention of transient ischemic attack - acetaminophen (TYLENOL) 500 mg tablet Take 2 tablets by mouth every 6 hours as needed for pain. Indications: pain - Propylene Glycol-Glycerin 1-0.3 % drop Use in both eyes. - TIMOLOL MALEATE OPHTHALMIC Use in eyes. Left eye Problem List As Of Date 10/22/2024 Noted Resolved Hyperlipidemia [E78.5] 06/22/2011 Hypertension [I10] 06/22/2011 12/08/2020 Basal cell carcinoma [C44.91] 07/09/2012 BPH (benign prostatic hyperplasia) [N40.0] 07/26/2012 11/17/2017 Elevated prostate specific antigen (PSA) [R97.2*07/26/2012 11/17/2017 Prostate cancer [C61] 08/09/2012 Lumbosacral pain [M54.50] 03/11/2013 Trochanteric bursitis [M70.60] 03/14/2013 11/17/2017 Pneumothorax [J93.9] 08/28/2022 Nicotine use disorder, F17.2 [F17.200] 08/28/2022 Severe protein-calorie malnutrition (HCC) [E43] 08/29/2022 12/21/2023 Encounter Status:Closed by OTILIA LOPEZ on 10/22/24 Normal [facility] Basic Metabolic Profile (BMP )on 10-21-2024 BUN Normal 7-18 [facility] Comment on above: Result Comment: Canc elled via OM: Order cancelled - Patient discharged Performed By: #### L 100.0500 #### [facility] [address] [place], [address] BUN/CRE Normal 10-20 [facility] Comment on above: Result Comment: Canc elled via OM: Order cancelled - Patient discharged Performed By: #### L 100.0500 #### [facility] [address] [place], [address] CA,Total Normal 8.5-10.1 [facility] Comment on above: Result Comment: Canc elled via OM: Order cancelled - Patient discharged Performed By: #### L 100.0500 #### [facility] [address] [place], [address] CL Normal 98-107 [facility] Comment on above: Result Comment: Canc elled via OM: Order cancelled - Patient discharged Performed By: #### L 100.0500 #### [facility] [address] [place], [address] CO2 Normal 21.0-32.0 [facility] Comment on above: Result Comment: Canc elled via OM: Order cancelled - Patient discharged Performed By: #### L 100.0500 #### [facility] [address] [place], [address] CREAT,SERUM Normal 0.70-1.30 [facility] Comment on above: Result Comment: Canc elled via OM: Order cancelled - Patient discharged Performed By: #### L 100.0500 #### [facility] [address] [place], [address] EST GFR Normal >60 [facility] Comment on above: Result Comment: Canc elled via OM: Order cancelled - Patient discharged Performed By: #### L 100.0500 #### [facility] [address] [place], [address] EST GFR - AA Normal >60 [facility] Comment on above: Result Comment: Canc elled via OM: Order cancelled - Patient discharged Performed By: #### L 100.0500 #### [facility] [address] [place], [address] GAP Normal 5-15 [facility] Comment on above: Result Comment: Canc elled via OM: Order cancelled - Patient discharged Performed By: #### L 100.0500 #### [facility] [address] [place], [address] GLU Normal 74-106 [facility] Comment on above: Result Comment: Canc elled via OM: Order cancelled - Patient discharged Performed By: #### L 100.0500 #### [facility] [address] [place], [address] Potassium Normal 3.5-5.1 [facility] Comment on above: Result Comment: Canc elled via OM: Order cancelled - Patient discharged Performed By: #### L 100.0500 #### [facility] [address] [place], [address] Basic Metabolic Profile (BMP) Normal 136-145 [facility] Comment on above: Result Comment: Canc elled via OM: Order cancelled - Patient discharged Performed By: #### L 100.0500 #### [facility] [address] [place], [address] CBC-Complete Blood Cnt No Di ffon 10-21-2024 HCT Normal 40-54 [facility] Comment on above: Result Comment: Canc elled via OM: Order cancelled - Patient discharged Performed By: #### L 500.2500, L500.3400 #### [facility] [address] [place], [address] HGB Normal 13.0-16.5 [facility] Comment on above: Result Comment: Canc elled via OM: Order cancelled - Patient discharged Performed By: #### L 500.2500, L500.3400 #### [facility] [address] [place], [address] MCH Normal 27.0-32.0 [facility] Comment on above: Result Comment: Canc elled via OM: Order cancelled - Patient discharged Performed By: #### L 500.2500, L500.3400 #### [facility] [address] [place], [address] MCHC Normal 32-36 [facility] Comment on above: Result Comment: Canc elled via OM: Order cancelled - Patient discharged Performed By: #### L 500.2500, [id number] #### [facility] [address] [place], [address] MCV Normal 80-94 [facility] Comment on above: Result Comment: Canc elled via OM: Order cancelled - Patient discharged Performed By: #### L 500.2500, [id number] #### [facility] [address] [place], [address] PLT Normal 150-450 [facility] Comment on above: Result Comment: Canc elled via OM: Order cancelled - Patient discharged Performed By: #### L 500.2500, [id number] #### [facility] [address] [place], [address] RBC Normal 4.6-6.2 [facility] Comment on above: Result Comment: Canc elled via OM: Order cancelled - Patient discharged Performed By: #### L 500.2500, [id number] #### [facility] [address] [place], [address] RDW CV Normal 11.6-14.6 [facility] Comment on above: Result Comment: Canc elled via OM: Order cancelled - Patient discharged Performed By: #### L 500.2500, [id number] #### [facility] [address] [place], [address] RDW SD Normal 35.1-43.9 [facility] Comment on above: Result Comment: Canc elled via OM: Order cancelled - Patient discharged Performed By: #### L 500.2500, [id number] #### [facility] [address] [place], [address] WBC Normal 4.4-11.0 [facility] Comment on above: Result Comment: Canc elled via OM: Order cancelled - Patient discharged Performed By: #### L 500.2500, [id number] #### [facility] [address] [place], [address] CBC-Complete Blood Cnt No Di ffon 10-20-2024 HCT Normal 40-54 [facility] Comment on above: Result Comment: Canc elled via OM: Order cancelled - Patient discharged Performed By: #### L 100.0500 #### [facility] [address] [place], [address] HGB Normal 13.0-16.5 [facility] Comment on above: Result Comment: Canc elled via OM: Order cancelled - Patient discharged Performed By: #### L 100.0500 #### [facility] [address] [place], [address] MCH Normal 27.0-32.0 [facility] Comment on above: Result Comment: Canc elled via OM: Order cancelled - Patient discharged Performed By: #### L 100.0500 #### [facility] [address] [place], [address] MCHC Normal 32-36 [facility] Comment on above: Result Comment: Canc elled via OM: Order cancelled - Patient discharged Performed By: #### L 100.0500 #### [facility] [address] [place], [address] MCV Normal 80-94 [facility] Comment on above: Result Comment: Canc elled via OM: Order cancelled - Patient discharged Performed By: #### L 100.0500 #### [facility] [address] [place], [address] PLT Normal 150-450 [facility] Comment on above: Result Comment: Canc elled via OM: Order cancelled - Patient discharged Performed By: #### L 100.0500 #### [facility] [address] [place], [address] RBC Normal 4.6-6.2 [facility] Comment on above: Result Comment: Canc elled via OM: Order cancelled - Patient discharged Performed By: #### L 100.0500 #### [facility] [address] [place], [address] RDW CV Normal 11.6-14.6 [facility] Comment on above: Result Comment: Canc elled via OM: Order cancelled - Patient discharged Performed By: #### L 100.0500 #### [facility] [address] [place], [address] RDW SD Normal 35.1-43.9 [facility] Comment on above: Result Comment: Canc elled via OM: Order cancelled - Patient discharged Performed By: #### L 100.0500 #### [facility] [address] [place], [address] WBC Normal 4.4-11.0 [facility] Comment on above: Result Comment: Canc elled via OM: Order cancelled - Patient discharged Performed By: #### L 100.0500 #### [facility] [address] [place], [address] Basic Metabolic Profile (BMP )on 10-19-2024 BUN Normal 7-18 [facility] Comment on above: Result Comment: Canc elled via OM: Order cancelled - Patient discharged Performed By: #### L 100.0500 #### [facility] [address] [place], [address] BUN/CRE Normal 10-20 [facility] Comment on above: Result Comment: Canc elled via OM: Order cancelled - Patient discharged Performed By: #### L 100.0500 #### [facility] [address] [place], [address] CA,Total Normal 8.5-10.1 [facility] Comment on above: Result Comment: Canc elled via OM: Order cancelled - Patient discharged Performed By: #### L 100.0500 #### [facility] [address] [place], [address] CL Normal 98-107 [facility] Comment on above: Result Comment: Canc elled via OM: Order cancelled - Patient discharged Performed By: #### L 100.0500 #### [facility] [address] [place], [address] CO2 Normal 21.0-32.0 [facility] Comment on above: Result Comment: Canc elled via OM: Order cancelled - Patient discharged Performed By: #### L 100.0500 #### [facility] [address] [place], [address] CREAT,SERUM Normal 0.70-1.30 [facility] Comment on above: Result Comment: Canc elled via OM: Order cancelled - Patient discharged Performed By: #### L 100.0500 #### [facility] [address] [place], [address] EST GFR Normal >60 [facility] Comment on above: Result Comment: Canc elled via OM: Order cancelled - Patient discharged Performed By: #### L 100.0500 #### [facility] [facility] [address] [place], [address] EST GFR - AA Normal >60 [facility] Comment on above: Result Comment: Canc elled via OM: Order cancelled - Patient discharged Performed By: #### L 100.0500 #### [facility] [address] [place], [address] GAP Normal 5-15 [facility] Comment on above: Result Comment: Canc elled via OM: Order cancelled - Patient discharged Performed By: #### L 100.0500 #### [facility] [address] [place], [address] GLU Normal 74-106 [facility] Comment on above: Result Comment: Canc elled via OM: Order cancelled - Patient discharged Performed By: #### L 100.0500 #### [facility] [address] [place], [address] Potassium Normal 3.5-5.1 [facility] Comment on above: Result Comment: Canc elled via OM: Order cancelled - Patient discharged Performed By: #### L 100.0500 #### [facility] [address] [place], [address] Basic Metabolic Profile (BMP) Normal 136-145 [facility] Comment on above: Result Comment: Canc elled via OM: Order cancelled - Patient discharged Performed By: #### L 100.0500 #### [facility] [address] [place], [address] CBC-Complete Blood Cnt No Di ffon 10-19-2024 HCT Normal 40-54 [facility] Comment on above: Result Comment: Canc elled via OM: Order cancelled - Patient discharged Performed By: #### L 100.0500 #### [facility] [address] [place], [address] HGB Normal 13.0-16.5 [facility] Comment on above: Result Comment: Canc elled via OM: Order cancelled - Patient discharged Performed By: #### L 100.0500 #### [facility] [address] [place], [address] MCH Normal 27.0-32.0 [facility] Comment on above: Result Comment: Canc elled via OM: Order cancelled - Patient discharged Performed By: #### L 100.0500 #### [facility] [address] [place], [address] MCHC Normal 32-36 [facility] Comment on above: Result Comment: Canc elled via OM: Order cancelled - Patient discharged Performed By: #### L 100.0500 #### [facility] [address] [place], [address] MCV Normal 80-94 [facility] Comment on above: Result Comment: Canc elled via OM: Order cancelled - Patient discharged Performed By: #### L 100.0500 #### [facility] [address] [place], [address] PLT Normal 150-450 [facility] Comment on above: Result Comment: Canc elled via OM: Order cancelled - Patient discharged Performed By: #### L 100.0500 #### [facility] [address] [place], [address] RBC Normal 4.6-6.2 [facility] Comment on above: Result Comment: Canc elled via OM: Order cancelled - Patient discharged Performed By: #### L 100.0500 #### [facility] [address] [place], [address] RDW CV Normal 11.6-14.6 [facility] Comment on above: Result Comment: Canc elled via OM: Order cancelled - Patient discharged Performed By: #### L 100.0500 #### [facility] [address] [place], [address] RDW SD Normal 35.1-43.9 [facility] Comment on above: Result Comment: Canc elled via OM: Order cancelled - Patient discharged Performed By: #### L 100.0500 #### [facility] [address] [place], [address] WBC Normal 4.4-11.0 [facility] Comment on above: Result Comment: Canc elled via OM: Order cancelled - Patient discharged Performed By: #### L 100.0500 #### [facility] [address] [place], [address] CBC-Complete Blood Cnt No Di ffon 10-18-2024 HCT Normal 40-54 [facility] Comment on above: Result Comment: Canc elled via OM: Order cancelled - Patient discharged Performed By: #### L 100.0500 #### [facility] [address] [place], [address] HGB Normal 13.0-16.5 [facility] Comment on above: Result Comment: Canc elled via OM: Order cancelled - Patient discharged Performed By: #### L 100.0500 #### [facility] [address] [place], [address] MCH Normal 27.0-32.0 [facility] Comment on above: Result Comment: Canc elled via OM: Order cancelled - Patient discharged Performed By: #### L 100.0500 #### [facility] [address] [place], [address] MCHC Normal 32-36 [facility] Comment on above: Result Comment: Canc elled via OM: Order cancelled - Patient discharged Performed By: #### L 100.0500 #### [facility] [address] [place], [address] MCV Normal 80-94 [facility] Comment on above: Result Comment: Canc elled via OM: Order cancelled - Patient discharged Performed By: #### L 100.0500 #### [facility] [address] [place], [address] PLT Normal 150-450 [facility] Comment on above: Result Comment: Canc elled via OM: Order cancelled - Patient discharged Performed By: #### L 100.0500 #### [facility] [address] [place], [address] RBC Normal 4.6-6.2 [facility] Comment on above: Result Comment: Canc elled via OM: Order cancelled - Patient discharged Performed By: #### L 100.0500 #### [facility] [address] [place], [address] RDW CV Normal 11.6-14.6 [facility] Comment on above: Result Comment: Canc elled via OM: Order cancelled - Patient discharged Performed By: #### L 100.0500 #### [facility] [address] [place], [address] RDW SD Normal 35.1-43.9 [facility] Comment on above: Result Comment: Canc elled via OM: Order cancelled - Patient discharged Performed By: #### L 100.0500 #### [facility] [address] [place], [address] WBC Normal 4.4-11.0 [facility] Comment on above: Result Comment: Canc elled via OM: Order cancelled - Patient discharged Performed By: #### L 100.0500 #### [facility] [place], [address] [facility] DIIMTRI PAINTER ([id number]) 1945 M Date Time Provider Department 10/18/24 OTILIA LOPEZ COUMCABRERA During your visit today, we recorded the following information about you: Christy Sales, RN 10/18/2024 12:04 PM [facility]igned [facility] ? patient was discharged from [facility] on 10/17 for uti, fatigue, weakness, and SOB. is planning on doing assessment on Monday if pcp will follow. Please review and advise nurse needs called back with information. Otilia Lopez MD 10/18/2024 5:04 PM Signed I will follow for Home Health Care MD Leigh Chavarria Gillian, OCCA 10/18/2024 5:09 PM Signed Left detailed message on [facility] secure voicemail with providers response. Provided office phone number to return call with any further questions. MADONNA Urbina Allergies As of Date: 10/18/2024 Noted Allergy Reaction ANESTHESIA S/I-40 (PROPOFOL) (PRO*09/13/2022 14 - Other: See Comments Comments: With use of anesthesia knocks him out, doesn't need much per . Date Reviewed: 06/27/2024 Reviewed by: Lyssa Lewis MA - Fully Assessed Reason for Visit: Orders [181] Cmt: Follow Prescriptions as of 10/18/2024 - meloxicam (MOBIC) 15 mg tablet Take 1 tablet by mouth once daily. With food. - lovastatin 40 mg tablet Take 1 tablet by mouth daily at bedtime. - TRELEGY ELLIPTA 200-62.5-25 mcg inhalation powder USE 1 INHALATION BY MOUTH ONCE DAILY AT THE SAME TIME EACH DAY DIRECTED - sodium chloride (NEBUSAL) 3 % nebulizer solution Use 4 mL via nebulizer two times a day as needed for cough (to help thin secretions). - docusate sodium (COLACE) 100 mg capsule once daily. - guaiFENesin (MUCINEX) 600 mg 12 hr tablet Take 2 tablets by mouth two times a day. - albuterol (PROVENTIL) 2.5 mg /3 mL (0.083 %) nebulizer solution Use 3 mL via nebulizer every 4 hours as needed for wheezing/shortness of breath. Use over 5-15minutes. - fluticasone (FLONASE) 50 mcg/actuation nasal spray Use 1-2 Sprays in each nostril once daily. - albuterol HFA (PROAIR HFA) 90 mcg/actuation inhaler Inhale 2 Puffs by mouth every 4 hours as needed for wheezing/shortness of breath. Take as directed - OXYGEN, HOME THERAPY, 2 L/min by Nasal Cannula route continuous. - vit A,C,W-Gnlm-Jomyrz (PRESERVISION AREDS) 2,148 mcg-113 mg-45 mg-17.4mg tab Take 1 tablet by mouth twice daily. - aspirin, enteric coated (ASPIRIN, ENTERIC COATED) 81 mg EC tablet Take 81 mg by mouth once daily. Indications: prevention of transient ischemic attack - acetaminophen (TYLENOL) 500 mg tablet Take 2 tablets by mouth every 6 hours as needed for pain. Indications: pain - Propylene Glycol-Glycerin 1-0.3 % drop Use in both eyes. - TIMOLOL MALEATE OPHTHALMIC Use in eyes. Left eye Problem List As Of Date 10/18/2024 Noted Resolved Hyperlipidemia [E78.5] 06/22/2011 Hypertension [I10] 06/22/2011 12/08/2020 Basal cell carcinoma [C44.91] 07/09/2012 BPH (benign prostatic hyperplasia) [N40.0] 07/26/2012 11/17/2017 Elevated prostate specific antigen (PSA) [R97.2*07/26/2012 11/17/2017 Prostate cancer [C61] 08/09/2012 Lumbosacral pain [M54.50] 03/11/2013 Trochanteric bursitis [M70.60] 03/14/2013 11/17/2017 Pneumothorax [J93.9] 08/28/2022 Nicotine use disorder, F17.2 [F17.200] 08/28/2022 Severe protein-calorie malnutrition (HCC) [E43] 08/29/2022 12/21/2023 Encounter Status:Closed by SOWMYA QUEZADA on 10/18/24 Normal [facility] Basic Metabolic Profile (BMP )on 10-17-2024 BUN/CRE 19.1 RATIO Normal 10- [facility] Comment on above: Performed By: #### L 500.2500 #### [facility] [address] [place], [address] CA,Total 9.2 mg/dL Normal 8.5-10.1 [facility] Comment on above: Performed By: #### L 500.2500 #### [facility] [address] [place], [address] Chloride [Moles/Vol] 107 mmol/L Normal 98-107 [facility] Comment on above: Performed By: #### L 500.2500 #### [facility] [address] [place], [address] CO2 [Moles/Vol] 25.0 mmol/L Normal 21.0-32.0 [facility] Comment on above: Performed By: #### L 500.2500 #### [facility] [address] [place], [address] Creatinine [Mass/Vol] 0.68 mg/dL Low 0.70-1.[address] [facility] Comment on above: Result Comment: The validity of the calculated GFR GFRAA in patients over 70 years has not been determined. Clinical correlation is essential. Performed By: #### L 500.2500 #### [facility] [address] [place], [address] ECRCL 58.75 ml/min Normal [facility] Comment on above: Performed By: #### L 500.2500 #### [facility] [address] [place], [address] EST GFR - AA 144 mL/min Normal >60 [facility] Comment on above: Result Comment: Afri can [place] GFR Calc Performed By: #### L 500.2500 #### [facility] [address] [place], [address] GAP 4 Low 5-15 [facility] Comment on above: Performed By: #### L 500.2500 #### [facility] [address] [place], [address] GFR/1.73 sq M.predicted among non-blacks MDRD (S/P/Bld) [Vol rate/Area] 119 mL/min/{1.73_m2} Normal >60 [facility] Comment on above: Result Comment: Non- GFR Calc Performed By: #### L 500.2500 #### [facility] [address] [place], [address] Glucose [Mass/Vol] 91 mg/dL Normal 74-106 [facility] Comment on above: Performed By: #### L 500.2500 #### [facility] [address] [place], [address] Potassium [Moles/Vol] 4.6 mmol/L Normal 3.5-5.[address] [facility] Comment on above: Performed By: #### L 500.2500 #### [facility] [address] [place], [address] Sodium [Moles/Vol] 135 mmol/L Low 136-145 [facility] Comment on above: Performed By: #### L 500.2500 #### [facility] [address] [place], [address] Urea nitrogen [Mass/Vol] 13 mg/dL Normal 7-18 [facility] Comment on above: Performed By: #### L 500.2500 #### [facility] [address] [place], [address] Blood urea nitrogen (BUN)/cr eatinine ratioOrdered By: Blayne Trejo on 10-17-2024 Urea nitrogen/Creatinine [Mass ratio] 19.1 mg/mg 06-16 [facility] CBC-Complete Blood Cnt No Di ffon 10-17-2024 Erythrocyte distribution width (RBC) [Ratio] 18.6 % High 11.6-14.6 [facility] Comment on above: Performed By: #### L 100.0500 #### [facility] [address] [place], [address] Hematocrit (Bld) [Volume fraction] 31.1 % Low 40-54 [facility] Comment on above: Performed By: #### L 100.0500 #### [facility] [address] [place], [address] Hemoglobin (Bld) [Mass/Vol] 9.5 g/dL Low 13.0-16.5 [facility] Comment on above: Performed By: #### L 100.0500 #### [facility] [address] [place], [address] MCH (RBC) [Entitic mass] 26.1 pg Low 27.0-32.0 [facility] Comment on above: Performed By: #### L 100.0500 #### [facility] [address] [place], [address] MCHC (RBC) [Mass/Vol] 30.5 g/dL Low 32-[address] [facility] Comment on above: Performed By: #### L 100.0500 #### [facility] [address] [place], [address] MCV (RBC) [Entitic vol] 85.4 fL Normal 80-94 [facility] Comment on above: Performed By: #### L 100.0500 #### [facility] [address] [place], [address] Platelet mean volume (Bld) [Entitic vol] 9.8 fL Normal 6.2-12.0 [facility] Comment on above: Performed By: #### L 100.0500 #### [facility] [address] [place], [address] Platelets (Bld) [#/Vol] 192 10*3/uL Normal 150-450 [facility] Comment on above: Performed By: #### L 100.0500 #### [facility] [address] [place], [address] RBC (Bld) [#/Vol] 3.64 10*6/uL Low 4.6-6.2 [facility] Comment on above: Performed By: #### L 100.0500 #### [facility] [address] [place], [address] RDW SD 57.0 fl High 35.1-43.9 [facility] Comment on above: Performed By: #### L 100.0500 #### [facility] [address] [place], [address] WBC (Bld) [#/Vol] 6.7 10*3/uL Normal 4.4-11.0 [facility] Comment on above: Performed By: #### L 100.0500 #### [facility] [address] [place], [address] Carbon dioxide measurementOr dered By: Blayne Trejo on 10-17-2024 CO2 [Moles/Vol] 25.0 mmol/L 21.0-32.0 [facility] Chloride measurementOrdered By: Blayne Trejo on 10-17-2024 Chloride [Moles/Vol] 107 mmol/L 98-107 [facility] Discharge Instructionon 09-29 Discharge Instruction [facility] Medical Records Department [address] [place] [address] Instructions for Home/Discharge Instructions 10/17/24 1049 MR#: [id number] Acct: [id number] Name: DIMITRI PAINTER Rep #: [id number] : 1945 79 From: Blayne Trejo DO PCP: Dr. Otilia Lopez MD Status:ADM IN Discharge Instructions Diet Discharge Diet: No restrictions DC O2, CPAP, BIPAP needs Home O2 Discharge instructions: No Dressing / Incision Discharge Activity: No Restrictions Follow Up Care Test Results: Test results from this visit will be discussed in further detail at your follow-up appointment, if applicable. Discharge Plan Admission Admit Date/Time: 10/14/24 20:06 Primary Reason for Your Visit: dark urine and fatigue Attending Provider: Blayne Trejo Primary Care Provider: Otilia Lopez Consulting Providers: Kate Castillo; Dennis Braun Instructions Additional Instructions / Restrictions: Please have repeat blood count drawn in 5 to 7 days to ensure they remain stable. Follow-up with urology in the office as needed. Discharge Orders/Prescriptions Prescriptions: Continued lovastatin 40 mg tablet 40 mg PO DAILY aspirin 81 mg Tablet,Delayed Release (Dr/Ec) 81 mg PO DAILY timolol maleate 0.5 % drops 1 drp EACH EYE BID artificial tears(hypromellose) 0.3 % Drops 1 drp EACH EYE BID docusate sodium [Colace] 100 mg Capsule 100 mg PO QHS albuterol sulfate 90 mcg/actuation Hfa Aerosol Inhaler 2 puff INHALATION Q6H PRN (Reason: Dyspnea) fluticasone propionate 50 mcg/actuation [place],Suspension 1 spray INTRANASAL DAILY PRN (Reason: nasal congestion) Rx Instructions: administer into each nostril guaifenesin [Mucinex] 600 mg Tablet Extended Release 12hr 600 mg PO BID Trelegy Ellipta 200-62.5-25 mcg Blister With Device 1 inh INHALATION 0 Eye Multivitamin 2,148 mcg-113 mg-45 mg-17.4mg tablet 2 tab PO BID Rx Instructions: administer with AM and PM meals loratadine [Allergy Relief (loratadine)] 10 mg tablet 10 mg PO DAILY acetaminophen 500 mg tablet 500 - 1,000 mg PO Q6H PRN (Reason: pain) Other Ambulatory Orders: CBC-Complete Blood Cnt No Diff (Routine) Timeframe: 5 Days Facility: [facility] - Location: Laboratory Ordered By: Dr. Blayne Trejo Referrals / Follow Up: Dennis Braun MD [Med Staff - Active Staff] - Otilia Lopez MD [Primary Care Provider] - Disposition Disposition (needs filled in before D/C Order can be placed): Home Health Service 10/17/24 1320 Blayne Trejo DO CC: Dr. Dennis Braun MD; Dr. Otilia Lopez MD; Dr. Kate Castillo MD Signed Normal [facility] Erythrocyte distribution wid th ratioOrdered By: Blayne Trejo on 10-17-2024 Erythrocyte distribution width (RBC) [Ratio] 18.6 % High 11.6-14.6 [facility] Erythrocyte distribution wid th standard deviationOrdered By: Blayne Trejo on 10-17-2024 Erythrocyte distribution width (RBC) [Entitic vol] 57.0 fL High 35.1-43.9 [facility] Estimated glomerular filtrat ion rate (GFR) AmericanOrdered By: Blayne Trejo on 10-17-2024 Estimated GFR (MDRD) Amer 144 mL/min >60 [facility] Comment on above: GFR Calc Estimation of creatinine kulwinder aranceOrdered By: Blayne Trejo on 10-17-2024 Estimated Creatinine Clearance Calc 58.75 ml/min [facility] Glomerular filtration rate ( GFR) estimationOrdered By: Blanye Trejo on 10-17-2024 Estimated GFR (MDRD) Non-Af Amer 119 mL/min >60 [facility] Comment on above: Non- GFR Calc Glucose measurementOrdered B y: Blayne Trejo on 10-17-2024 Glucose [Mass/Vol] 91 mg/dL 74-106 [facility] Hematocrit Auto (Bld) [Volum e fraction]Ordered By: Blayne Trejo on 10-17-2024 Hematocrit (Bld) [Volume fraction] 31.1 % Low 40-54 [facility] Hemoglobin measurementOrdere d By: Blayne Trejo on 10-17-2024 Hemoglobin (Bld) [Mass/Vol] 9.5 g/dL Low 13.0-16.5 [facility] MCV (mean corpuscular volume ) determinationOrdered By: Blayne Trejo on 10-17-2024 MCV (RBC) [Entitic vol] 85.4 fL 80-94 [facility] Mean corpuscular hemoglobin (MCH) determinationOrdered By: Blayne Trejo on 10-17-2024 MCH (RBC) [Entitic mass] 26.1 pg Low 27.0-32.0 [facility] Mean corpuscular hemoglobin concentration (MCHC) determinationOrdered By: Blayne Trejo on 10-17-2024 MCHC (RBC) [Mass/Vol] 30.5 g/dL Low 32-[address] [facility] Mean platelet volume determi nationOrdered By: Blayne Trejo on 10-17-2024 Platelet mean volume (Bld) [Entitic vol] 9.8 fL 6.2-12.0 [facility] Platelet countOrdered By: Tai Trejo on 10-17-2024 Platelets (Bld) [#/Vol] 192 10*3/uL 150-450 [facility] Potassium measurementOrdered By: Blayne Trejo on 10-17-2024 Potassium [Moles/Vol] 4.6 mmol/L 3.5-5.[address] [facility] RBC Auto (Bld) [#/Vol]Ordere d By: Blayne Trejo on 10-17-2024 RBC (Bld) [#/Vol] 3.64 10*6/uL Low 4.6-6.2 [facility] Serum anion gap measurementO rdered By: Blayne Trejo on 10-17-2024 Anion gap [Moles/Vol] 4 mmol/L Low 5-[address] [facility] Serum or plasma calcium slade urement (mass/volume)Ordered By: Blayne Trejo on 10-17-2024 Calcium [Mass/Vol] 9.2 mg/dL 8.5-10.1 [facility] Serum or plasma creatinine m easurement (mass/volume)Ordered By: Blayne Trejo on 10-17-2024 Creatinine [Mass/Vol] 0.68 mg/dL Low 0.70-1.[address] [facility] Comment on above: The validity of the calculated GFR & GFRAA in patients over 70 years has not been determined. Clinical correlation is essential. Serum or plasma urea nitroge n measurement (mass/volume)Ordered By: Blayne Trejo on 10-17-2024 Urea nitrogen [Mass/Vol] 13 mg/dL 7-18 [facility] Sodium levelOrdered By: Maynor Trejo on 10-17-2024 Sodium [Moles/Vol] 135 mmol/L Low 136-145 [facility] White blood cell (WBC) count Ordered By: Blayne Maya on 10-17-2024 WBC (Bld) [#/Vol] 6.7 10*3/uL 4.4-11.0 [facility] Basic Metabolic Profile (BMP )on 10-16-2024 BUN/CRE 26.4 RATIO High - [facility] Comment on above: Performed By: #### L 500.2500, L500.3400 #### [facility] [address] [place], [address] CA,Total 8.8 mg/dL Normal 8.5-10.1 [facility] Comment on above: Performed By: #### L 500.2500, L500.3400 #### [facility] [address] [place], [address] Chloride [Moles/Vol] 107 mmol/L Normal 98-107 [facility] Comment on above: Performed By: #### L 500.2500, L500.3400 #### [facility] [address] [place], [address] CO2 [Moles/Vol] 23.0 mmol/L Normal 21.0-32.0 [facility] Comment on above: Performed By: #### L 500.2500, L500.3400 #### [facility] [address] [place], [address] Creatinine [Mass/Vol] 0.72 mg/dL Normal 0.70-1.[address] [facility] Comment on above: Result Comment: The validity of the calculated GFR GFRAA in patients over 70 years has not been determined. Clinical correlation is essential. Performed By: #### L 500.2500, L500.3400 #### [facility] [address] [place], [address] ECRCL 56.46 ml/min Normal [facility] Comment on above: Performed By: #### L 500.2500, L500.3400 #### [facility] [address] [place], [address] EST GFR - AA 135 mL/min Normal >60 [facility] Comment on above: Result Comment: Afri can Slovak GFR Calc Performed By: #### L 500.2500, L500.3400 #### [facility] [address] [place], [address] GAP 6 Normal 5-15 [facility] Comment on above: Performed By: #### L 500.2500, L500.3400 #### [facility] [address] [place], [address] GFR/1.73 sq M.predicted among non-blacks MDRD (S/P/Bld) [Vol rate/Area] 112 mL/min/{1.73_m2} Normal >60 [facility] Comment on above: Result Comment: Non- GFR Calc Performed By: #### L 500.2500, L500.3400 #### [facility] [address] [place], [address] Glucose [Mass/Vol] 86 mg/dL Normal 74-106 [facility] Comment on above: Performed By: #### L 500.2500, L500.3400 #### [facility] [address] [place], [address] Potassium [Moles/Vol] 4.9 mmol/L Normal 3.5-5.[address] [facility] Comment on above: Result Comment: Slig ht Hemolysis, Result may be falsely increased. Performed By: #### L 500.2500, L500.3400 #### [facility] [address] [place], [address] Sodium [Moles/Vol] 136 mmol/L Normal 136-145 [facility] Comment on above: Performed By: #### L 500.2500, L500.3400 #### [facility] [address] [place], [address] Urea nitrogen [Mass/Vol] 19 mg/dL High 7-18 [facility] Comment on above: Performed By: #### L 500.2500, L500.3400 #### [facility] [address] [place], [address] Bilirubin directOrdered By: Dennis Braun on 10-16-2024 Bilirubin.direct [Mass/Vol] 0.28 mg/dL 0.00-0.30 [facility] Bilirubin, totalOrdered By: Dennis Braun on 10-16-2024 Bilirubin [Mass/Vol] 0.90 mg/dL 0.20-1.00 [facility] Comment on above: For patients on eltr ombopag therapy, use of Dimension [place] TBIL is not recommended. CBC W/Diff, Automatedon 09-28 PATH REV Reviewed Normal [facility] Comment on above: Result Comment: DEVORA RE Normocytic anemia. Clinical correlation necessary. Yariel Anand M.D. 10/16/24 AMENDED REPORT 10/16/24 0909 PATH REV previously reported as: December Performed By: #### L 500.2500, L500.3400 #### [facility] [address] [place], [address] CBC-Complete Blood Cnt No Di ffon 10-16-2024 Erythrocyte distribution width (RBC) [Ratio] 18.3 % High 11.6-14.6 [facility] Comment on above: Performed By: #### L 500.2500, L500.3400 #### [facility] [address] [place], [address] Hematocrit (Bld) [Volume fraction] 31.5 % Low 40-54 [facility] Comment on above: Performed By: #### L 500.2500, L500.3400 #### [facility] [address] [place], [address] Hemoglobin (Bld) [Mass/Vol] 9.7 g/dL Low 13.0-16.5 [facility] Comment on above: Performed By: #### L 500.2500, L500.3400 #### [facility] [address] [place], [address] MCH (RBC) [Entitic mass] 25.9 pg Low 27.0-32.0 [facility] Comment on above: Performed By: #### L 500.2500, L500.3400 #### [facility] [address] [place], [address] MCHC (RBC) [Mass/Vol] 30.8 g/dL Low 32-[address] [facility] Comment on above: Performed By: #### L 500.2500, L500.3400 #### [facility] [address] [place], [address] MCV (RBC) [Entitic vol] 84.2 fL Normal 80-94 [facility] Comment on above: Performed By: #### L 500.2500, L500.3400 #### [facility] [address] [place], [address] Platelet mean volume (Bld) [Entitic vol] 10.8 fL Normal 6.2-12.0 [facility] Comment on above: Performed By: #### L 500.2500, L500.3400 #### [facility] [address] [place], [address] Platelets (Bld) [#/Vol] 195 10*3/uL Normal 150-450 [facility] Comment on above: Performed By: #### L 500.2500, L500.3400 #### [facility] [address] [place], [address] RBC (Bld) [#/Vol] 3.74 10*6/uL Low 4.6-6.2 [facility] Comment on above: Performed By: #### L 500.2500, L500.3400 #### [facility] [address] [place], [address] RDW SD 55.5 fl High 35.1-43.9 [facility] Comment on above: Performed By: #### L 500.2500, L500.3400 #### [facility] [address] [place], [address] WBC (Bld) [#/Vol] 7.2 10*3/uL Normal 4.4-11.0 [facility] Comment on above: Performed By: #### L 500.2500, L500.3400 #### [facility] [address] [place], [address] International normalized rat io (INR) calculationOrdered By: Dennis Braun on 10-16-2024 INR Coag (Bld) [Relative time] 1.1 {INR} [facility] - Chemistry and C hemistry - challengeOrdered By: Dennis Braun on 10-16-2024 AST [Catalytic activity/Vol] 33 U/L 15-37 [facility] Comment on above: Slight Hemolysis, Re sult may be falsely increased. Liver Profileon 10-16-2024 Albumin [Mass/Vol] 3.3 g/dL Normal 3.2-5.0 [facility] Comment on above: Performed By: #### L 500.2500, L500.3400 #### [facility] [address] [place], [address] ALK P 65 U/L Normal 45-117 [facility] Comment on above: Performed By: #### L 500.2500, L500.3400 #### [facility] [address] [place], [address] ALT [Catalytic activity/Vol] 15 U/L Low 16-61 [facility] Comment on above: Performed By: #### L 500.2500, L500.3400 #### [facility] [address] [place], [address] AST [Catalytic activity/Vol] 33 U/L Normal 15-37 [facility] Comment on above: Result Comment: Slig ht Hemolysis, Result may be falsely increased. Performed By: #### L 500.2500, L500.3400 #### [facility] [address] [place], [address] Bilirubin [Mass/Vol] 0.90 mg/dL Normal 0.20-1.00 [facility] Comment on above: Result Comment: For patients on eltrombopag therapy, use of Dimension [place] TBIL is not recommended. Performed By: #### L 500.2500, L500.3400 #### [facility] [address] [place], [address] Bilirubin.direct [Mass/Vol] 0.28 mg/dL Normal 0.00-0.30 [facility] Comment on above: Performed By: #### L 500.2500, L500.3400 #### [facility] [address] [place], [address] Globulin (S) [Mass/Vol] 3.0 g/dL Normal 2.2-4.2 [facility] Comment on above: Performed By: #### L 500.2500, L500.3400 #### [facility] [address] [place], [address] T PROT 6.3 g/dL Low 6.4-8.2 [facility] Comment on above: Performed By: #### L 500.2500, L500.3400 #### [facility] [address] [place], [address] MR/POSTOP.ANEon 10-16-2024 MR/POSTOP.ANE [facility] Medical Records Department [address] [place] [address] Anesthesia Postop Eval I 10/16/24 1555 MR#: [id number] Acct: [id number] Name: DIMITRI PAINTER Rep #: [id number] : 1945 79 From: Roxann Squires PCP: Dr. Otilia Lopez MD Status:ADM IN Y Race: C Location: [place] [address] Anesthesia: Postop Eval I Current Vital Signs Temperature: 97.7 F Pulse Rate: 76 Blood Pressure: 132/82 Respiratory Rate: 16 Pulse Ox: 100 Assessment Airway patent: Yes Spontaneous unlabored respirations: Yes nausea: No Vomiting: No Anesthesia Complication: No Fluid Hydration Crystalloid volume administer (ml): 0 Total IV fluid infused: 0 Progress Note Anesthesia document: Postop Eval 1 completed: Yes 10/16/241701 Date Roxann Soto Signature: Date CC: Signed Normal [facility] MR/[id number] 10-16-2024 [facility] Medical Records Department [address] [place] [address] Anesthesia Postop Eval II 10/16/24 1702 MR#: [id number] Acct: [id number] Name: DIMITRI PAINTER Rep #: [id number] : 1945 79 From: Roxann Squires PCP: Dr. Otliia Lopez MD Status:ADM IN Y Race: C Location: [place] [address] Anesthesia Postop Eval I Sum Postop Eval Completion status Anesthesia document: Postop Eval 1 completed: Yes Anesthesia Postop Eval I Summary Anesthesia Postop Eval I Summary: Anesthesia Postop Eval I: Assessment Summary Airway patent Yes 10/16/24 17:02 LOT [email or web address] Spontaneous unlabored Yes 10/16/24 17:02 LOT [email or web address].[email or web address] respirations Mental status nausea No 10/16/24 17:02 LOT [email or web address].CSIR Vomiting No 10/16/24 17:02 LOT [email or web address].CSIR Anesthesia Postop Eval I: Fluid Summary Crystalloid volume administer 0 10/16/24 17:02 LOT [email or web address].CSIR (ml) Colloids volume administered ( ml) Blood Product volume administered (ml) Total IV fluid infused 0 10/16/24 17:02 LOT [email or web address].CSIR Anesthesia Postop Eval I: Summary Notes Anesthesia Complication No 10/16/24 17:02 LOT [email or web address] Anesthesia Complication Comment: Post-operative progress note Anesthesia: Postop Eval II Evaluation Mental status: Awake Pain Level: 1 nausea: No Vomiting: No 10/16/24 1703 Date Roxann Soto Signature: Date CC: Signed Normal [facility] Magnesiumon 10-16-2024 Magnesium [Mass/Vol] 2.1 mg/dL Normal 1.6-2.6 [facility] Comment on above: Result Comment: Slig ht Hemolysis, Result may be falsely increased. Performed By: #### L 100.0500 #### [facility] [address] [facility] [place], [address] Magnesium measurementOrdered By: Mary Mcallister on 10-16-2024 Magnesium [Mass/Vol] 2.1 mg/dL 1.6-2.6 [facility] Comment on above: Slight Hemolysis, Re sult may be falsely increased. Operative Reporton Operative Report [facility] Medical Records Department [address] [place] [address] Operative Report 10/16/24 1346 MR#: [id number] Acct: [id number] Name: DIMITRI PAINTER GAURI Rep #: [id number] : 1945 79 From: Dennis Braun MD PCP: Dr. 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 Type of Anesthesia: General RN Documented Start/Stop Times: Operation Date: 10/16/24 15:00 Case Time Into Pre-Op 10/16/24 12:40 Anesthesia Start 10/16/24 13:13 Into Room 10/16/24 13:13 Procedure End 10/16/24 13:45 Procedure Start Time: 13:50 Procedure Stop Time: 13:46 Select all DRAINS/GRAFTS/IMPLANTS that apply: None Estimated Blood Loss: 0 Specimen collected: No Description of surgery: This is a 79-year-old male presented to the hospital with a hemoglobin of 4.8 he had been bleeding for quite some time and is slowly getting weaker he was transfused and stabilized this point and taken back to the operative, he underwent anesthesia went into the bladder with a 24 Icelandic noncontinuous flow Olympus bipolar resectoscope once inside I got inside the bladder there is a bunch of blood clots these were Ellik doubt once I got all the clots cleared out then I inspected the bladder carefully I do not see any stones I do not see any tumors he had a prior prostatectomy the bladder prostate then removed and right at the bladder neck there was a blood vessel that was pumping and bleeding I then cauterized this to stop the bleeding I then checked around again to see if there is any sort of other source of bleeding I did not see any blood coming from the left or the right ureteral orifice did not see any other bleeding from anywhere else in the bladder some mild irritation of the bladder lining but no source of bleeding besides the bladder neck so 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 Dennis Braun MD; Dr. Otilia Lopez MD; Dr. Kate Castillo MD Signed Normal [facility] Partial Thromboplast Timeon 10-16-2024 aPTT Coag (Bld) [Time] 26.5 s Normal 24.1-36.2 [facility] Comment on above: Performed By: #### L 300.4310, L300.3900 #### [facility] [address] [place], [address] Phosphoruson 10-16-2024 Phosphate [Mass/Vol] 2.7 mg/dL Normal 2.5-4.9 [facility] Comment on above: Performed By: #### L 100.0500 #### [facility] [address] [place], [address] Phosphorus measurementOrdere d By: Mary Mcallister on 10-16-2024 Phosphorus Level 2.7 mg/dL 2.5-4.9 [facility] Prothrombin Time w/INRon INR Coag (PPP) [Relative time] 1.1 {INR} Normal [facility] Comment on above: Performed By: #### L 300.4310, L300.3900 #### [facility] [address] [place], [address] PT Coag (PPP) [Time] 14.2 s Normal 11.7-14.9 [facility] Comment on above: Performed By: #### L 300.4310, L300.3900 #### [facility] [address] [place], [address] Prothrombin timeOrdered By: Dennis Braun on 10-16-2024 PT Coag (PPP) [Time] 14.2 s 11.7-14.9 [facility] Serum globulin measurementOr dered By: Dennis Braun on 10-16-2024 Globulin (S) [Mass/Vol] 3.0 g/dL 2.2-4.2 [facility] Serum or plasma alanine childress otransferase (ALT) measurementOrdered By: Dennis Braun on 10-16-2024 ALT [Catalytic activity/Vol] 15 U/L Low 16-61 [facility] Serum or plasma albumin slade urement (mass/volume)Ordered By: Dennis Braun on 10-16-2024 Albumin [Mass/Vol] 3.3 g/dL 3.2-5.0 [facility] Serum or plasma alkaline sole sphatase measurementOrdered By: Dennis Braun on 10-16-2024 ALP [Catalytic activity/Vol] 65 U/L 45-117 [facility] Total proteinOrdered By: Haris Braun on 10-16-2024 Protein [Mass/Vol] 6.3 g/dL Low 6.4-8.2 [facility] aPTT Coag (PPP) [Time]Ordere d By: Dennis Braun on 10-16-2024 aPTT Coag (Bld) [Time] 26.5 s 24.1-36.2 [facility] Absolute neutrophil countOrd ered By: Kate Castillo on 10-15-2024 Neutrophils (Bld) [#/Vol] 2.3 10*3/uL 2.0-7.7 [facility] Basic Metabolic Profile (BMP )on 10-15-2024 BUN/CRE 22.3 RATIO High 10-20 [facility] Comment on above: Performed By: #### L 500.2500, L500.3400 #### [facility] [address] [place], [address] CA,Total 8.3 mg/dL Low 8.5-10.1 [facility] Comment on above: Performed By: #### L 500.2500, L500.3400 #### [facility] [address] [place], [address] Chloride [Moles/Vol] 110 mmol/L High 98-107 [facility] Comment on above: Performed By: #### L 500.2500, L500.3400 #### [facility] [address] [place], [address] CO2 [Moles/Vol] 25.0 mmol/L Normal 21.0-32.0 [facility] Comment on above: Performed By: #### L 500.2500, L500.3400 #### [facility] [address] [place], [address] Creatinine [Mass/Vol] 0.72 mg/dL Normal 0.70-1.[address] [facility] Comment on above: Result Comment: The validity of the calculated GFR GFRAA in patients over 70 years has not been determined. Clinical correlation is essential. Performed By: #### L 500.2500, L500.3400 #### [facility] [address] [place], [address] ECRCL 56.35 ml/min Normal [facility] Comment on above: Performed By: #### L 500.2500, L500.3400 #### [facility] [address] [place], [address] EST GFR - AA 136 mL/min Normal >60 [facility] Comment on above: Result Comment: Afri can Slovak GFR Calc Performed By: #### L 500.2500, L500.3400 #### [facility] [address] [place], [address] GAP 7 Normal 5-15 [facility] Comment on above: Performed By: #### L 500.2500, L500.3400 #### [facility] [address] [place], [address] GFR/1.73 sq M.predicted among non-blacks MDRD (S/P/Bld) [Vol rate/Area] 112 mL/min/{1.73_m2} Normal >60 [facility] Comment on above: Result Comment: Non- GFR Calc Performed By: #### L 500.2500, L500.3400 #### [facility] [address] [place], [address] Glucose [Mass/Vol] 82 mg/dL Normal 74-106 [facility] Comment on above: Performed By: #### L 500.2500, L500.3400 #### [facility] [address] [place], [address] Potassium [Moles/Vol] 5.1 mmol/L Normal 3.5-5.[address] [facility] Comment on above: Performed By: #### L 500.2500, L500.3400 #### [facility] [address] [place], [address] Sodium [Moles/Vol] 142 mmol/L Normal 136-145 [facility] Comment on above: Performed By: #### L 500.2500, L500.3400 #### [facility] [address] [place], [address] Urea nitrogen [Mass/Vol] 16 mg/dL Normal 7-18 [facility] Comment on above: Performed By: #### L 500.2500, L500.3400 #### [facility] [address] [place], [address] Basophil percentageOrdered B y: Kate Castillo on 10-15-2024 Basophils/100 WBC (Bld) 0.5 % 0-1 [facility] CBC W/Diff, Automatedon 09-28 Absolute Lymph 1.05 X10 3/uL Normal 0.83-4.51 [facility] Comment on above: Performed By: #### L 500.2500, L500.3400 #### [facility] [address] [place], [address] Absolute Neut 2.3 X10 3/uL Normal 2.0-7.7 [facility] Comment on above: Performed By: #### L 500.2500, L500.3400 #### [facility] [address] [place], [address] Basophils/100 WBC (Bld) 0.5 % Normal 0-1 [facility] Comment on above: Performed By: #### L 500.2500, L500.3400 #### [facility] [address] [place], [address] Eosinophils/100 WBC (Bld) 4.7 % Normal 0-5 [facility] Comment on above: Performed By: #### L 500.2500, L500.3400 #### [facility] [address] [place], [address] Erythrocyte distribution width (RBC) [Ratio] 18.6 % High 11.6-14.6 [facility] Comment on above: Performed By: #### L 500.2500, L500.3400 #### [facility] [address] [place], [address] Hematocrit (Bld) [Volume fraction] 21.4 % Low 40-54 [facility] Comment on above: Performed By: #### L 500.2500, L500.3400 #### [facility] [address] [place], [address] Hemoglobin (Bld) [Mass/Vol] 6.6 g/dL Low 13.0-16.5 [facility] Comment on above: Performed By: #### L 500.2500, L500.3400 #### [facility] [address] [place], [address] IG% 0.200 Normal 0.0-0.9 [facility] Comment on above: Result Comment: IG% - Immature Granulocytes (promyelocytes, myelocytes and metamyelocytes) > 1% indicates that a LEFT SHIFT is Present. Performed By: #### L 500.2500, L500.3400 #### [facility] [address] [place], [address] Lymphocytes/100 WBC (Bld) 26.1 % Normal 19-41 [facility] Comment on above: Performed By: #### L 500.2500, L500.3400 #### [facility] [address] [place], [address] MCH (RBC) [Entitic mass] 26.3 pg Low 27.0-32.0 [facility] Comment on above: Performed By: #### L 500.2500, L500.3400 #### [facility] [address] [place], [address] MCHC (RBC) [Mass/Vol] 30.8 g/dL Low 32-[address] [facility] Comment on above: Performed By: #### L 500.2500, L500.3400 #### [facility] [address] [place], [address] MCV (RBC) [Entitic vol] 85.3 fL Normal 80-94 [facility] Comment on above: Performed By: #### L 500.2500, L500.3400 #### [facility] [address] [place], [address] Monocytes/100 WBC (Bld) 10.9 % High 0-10 [facility] Comment on above: Performed By: #### L 500.2500, L500.3400 #### [facility] [address] [place], [address] Neutrophils/100 WBC (Bld) 57.6 % Normal 47-70 [facility] Comment on above: Performed By: #### L 500.2500, L500.3400 #### [facility] [address] [place], [address] Nucleated RBC (Bld) [#/Vol] 0.5 10*3/uL Normal 0-5 [facility] Comment on above: Performed By: #### L 500.2500, L500.3400 #### [facility] [address] [place], [address] Platelet mean volume (Bld) [Entitic vol] 10.9 fL Normal 6.2-12.0 [facility] Comment on above: Performed By: #### L 500.2500, L500.3400 #### [facility] [address] [place], [address] Platelets (Bld) [#/Vol] 188 10*3/uL Normal 150-450 [facility] Comment on above: Performed By: #### L 500.2500, L500.3400 #### [facility] [address] [place], [address] RBC (Bld) [#/Vol] 2.51 10*6/uL Low 4.6-6.2 [facility] Comment on above: Performed By: #### L 500.2500, L500.3400 #### [facility] [address] [place], [address] RDW SD 58.1 fl High 35.1-43.9 [facility] Comment on above: Performed By: #### L 500.2500, L500.3400 #### [facility] [address] [place], [address] WBC (Bld) [#/Vol] 4.0 10*3/uL Low 4.4-11.0 [facility] Comment on above: Performed By: #### L 500.2500, L500.3400 #### [facility] [address] [place], [address] CBC-Complete Blood Cnt No Di ffon 10-15-2024 Erythrocyte distribution width (RBC) [Ratio] 17.7 % High 11.6-14.6 [facility] Comment on above: Performed By: #### L 500.2500, L500.3400 #### [facility] [address] [place], [address] Hematocrit (Bld) [Volume fraction] 29.6 % Low 40-54 [facility] Comment on above: Performed By: #### L 500.2500, L500.3400 #### [facility] [address] [place], [address] Hemoglobin (Bld) [Mass/Vol] 9.2 g/dL Low 13.0-16.5 [facility] Comment on above: Performed By: #### L 500.2500, L500.3400 #### [facility] [address] [place], [address] MCH (RBC) [Entitic mass] 26.4 pg Low 27.0-32.0 [facility] Comment on above: Performed By: #### L 500.2500, L500.3400 #### [facility] [address] [place], [address] MCHC (RBC) [Mass/Vol] 31.1 g/dL Low 32-[address] [facility] Comment on above: Performed By: #### L 500.2500, L500.3400 #### [facility] [address] [place], [address] MCV (RBC) [Entitic vol] 84.8 fL Normal 80-94 [facility] Comment on above: Performed By: #### L 500.2500, L500.3400 #### [facility] [address] [place], [address] Platelet mean volume (Bld) [Entitic vol] 10.0 fL Normal 6.2-12.0 [facility] Comment on above: Performed By: #### L 500.2500, L500.3400 #### [facility] [address] [place], [address] Platelets (Bld) [#/Vol] 174 10*3/uL Normal 150-450 [facility] Comment on above: Performed By: #### L 500.2500, L500.3400 #### [facility] [address] [place], [address] RBC (Bld) [#/Vol] 3.49 10*6/uL Low 4.6-6.2 [facility] Comment on above: Performed By: #### L 500.2500, L500.3400 #### [facility] [address] [place], [address] RDW SD 54.7 fl High 35.1-43.9 [facility] Comment on above: Performed By: #### L 500.2500, L500.3400 #### [facility] [address] [place], [address] WBC (Bld) [#/Vol] 5.9 10*3/uL Normal 4.4-11.0 [facility] Comment on above: Performed By: #### L 500.2500, L500.3400 #### [facility] [address] [place], [address] Erythrocyte distribution width (RBC) [Ratio] 18.6 % High 11.6-14.6 [facility] Comment on above: Performed By: #### L 500.2500, L500.3400 #### [facility] [address] [place], [address] Hematocrit (Bld) [Volume fraction] 23.9 % Low 40-54 [facility] Comment on above: Performed By: #### L 500.2500, L500.3400 #### [facility] [address] [place], [address] Hemoglobin (Bld) [Mass/Vol] 7.2 g/dL Low 13.0-16.5 [facility] Comment on above: Performed By: #### L 500.2500, L500.3400 #### [facility] [address] [place], [address] MCH (RBC) [Entitic mass] 26.1 pg Low 27.0-32.0 [facility] Comment on above: Performed By: #### L 500.2500, L500.3400 #### [facility] [address] [place], [address] MCHC (RBC) [Mass/Vol] 30.1 g/dL Low 32-[address] [facility] Comment on above: Performed By: #### L 500.2500, L500.3400 #### [facility] [address] [place], [address] MCV (RBC) [Entitic vol] 86.6 fL Normal 80-94 [facility] Comment on above: Performed By: #### L 500.2500, L500.3400 #### [facility] [address] [place], [address] Platelet mean volume (Bld) [Entitic vol] 11.6 fL Normal 6.2-12.0 [facility] Comment on above: Performed By: #### L 500.2500, L500.3400 #### [facility] [address] [place], [address] Platelets (Bld) [#/Vol] 164 10*3/uL Normal 150-450 [facility] Comment on above: Performed By: #### L 500.2500, L500.3400 #### [facility] [address] [place], [address] RBC (Bld) [#/Vol] 2.76 10*6/uL Low 4.6-6.2 [facility] Comment on above: Performed By: #### L 500.2500, L500.3400 #### [facility] [address] [place], [address] RDW SD 58.5 fl High 35.1-43.9 [facility] Comment on above: Performed By: #### L 500.2500, L500.3400 #### [place] [facility] [address] [place], [address] WBC (Bld) [#/Vol] 4.8 10*3/uL Normal 4.4-11.0 [facility] Comment on above: Performed By: #### L 500.2500, L500.3400 #### [facility] [address] [place], [address] Consultation - Urologyon Consultation - Urology [facility] Medical Records Department [address] [place] [address] Consultation - Urology 10/15/24 0713 MR#: [id number] Acct: [id number] Name: DIMITRI PAINTER Rep #: [id number] : 1945 79 From: Dennis Braun MD PCP: Dr. Otilia Lopez MD Status:ADM IN Location: ICU ICU05-1 Assessment Plan Assessment/Plan (1) Painless hematuria: PLAN: 79-year-old male with gross hematuria history of prostate removal in the past and also radiation therapy n.p.o. at midnight plan to take him to surgery tomorrow for cystoscopy (2) Gross hematuria: (3) Symptomatic anemia: HPI Consult Data Date of Consult: 10/15/24 HPI Narrative Reason for Consultation: Gross hematuria HPI Narrative: DIMITRI PAINTER, is a 79 M who presents to the hospital with gross hematuria he was found to have severe anemia was stabilized in the ICU he has been able to urinate okay has a history of a prostatectomy in the past he believes he had radiation therapy as well. 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 N.p.o. at midnight will plan to take him to surgery tomorrow for cystoscopy evacuation of clots and to find a source of the bleeding and cauterize it. [facility] Medical History Pneumothorax Asthma exacerbation in COPD Prostate CA COPD (chronic obstructive pulmonary disease) Glaucoma High cholesterol Home Medications ???Medication ???Instructions ???Recorded ???Last Taken ???Type artificial tears(hypromellose) 0.3 1 drp EACH EYE BID DRY EYE 08/2510/13/24 History % eye drops aspirin 81 mg tablet,delayed 81 mg PO DAILY HEART HEALTH 10/13/24 History release lovastatin 40 mg tablet 40 mg PO DAILY CHOLESTEROL 2 10/13/24 History timolol maleate 0.5 % eye drops 1 drp EACH EYE BID GLUCOMA 2 10/13/24 History albuterol sulfate 90 mcg/actuation 2 puff inhalation Q6H PRN Dyspne a 12/13/22 01/05/24 History aerosol inhaler docusate sodium 100 mg capsule 100 mg PO QHS 12/13/22 10/13/24 Hi story (Colace) fluticasone fur. 200 mcg-umeclid 1 inh inhalation 212912/13/22 History 62.5 mcg-vilant 25 mcg inhalat.powder (Trelegy Ellipta) fluticasone propionate 50 1 spray intranasal DAILY PRN nasal 12/13/22 01/05/24 History mcg/actuation nasal congestion spray,suspension guaifenesin 600 mg tablet, 600 mg PO BID 12/13/22 10/13/24 Hi story extended release 12 hr (Mucinex) acetaminophen 500 mg tablet 500 - 1,000 mg PO Q6H PRN pain Unknown History loratadine 10 mg tablet (Allergy 10 mg PO DAILY 10/14/24 10/13/24 H istory Relief (loratadine)) vitamins A,C,E-rrdo-cytufx 2,148 2 tab PO BID 10/14/24 10/13/24 His tory mcg-113 mg-45 mg-17.4 mg tablet (Eye Multivitamin) Allergy/AdvReac Type Severity Reaction Status Date / Time propofol Allergy Severe Other Verified 10/14/24 15:24 Family History Other COPD (chronic obstructive pulmonary disease) Heart disease Hypertension Surgical History H/O radical prostatectomy Social History household members: family Smoking Status: Former smoker alcohol intake: former Physical Exam Const alert and oriented x3 General Appearance: cooperative HEENT normocephalic, head/scalp atraumatic, EAC's normal and TM's normal bilaterally Eyes PERRL and EOMs intact bilaterally Pupil: sluggish Neck no lymphadenopathy, supple and no JVD General: trachea midline Lymph Lymphatic: no lymphadenopathy noted, lymphedema and lymphadenopathy Resp normal respiratory effort, normal air movement and clear to auscultation bilaterally Cardio regular rate, regular rhythm and peripheral pulses 2+ throughout GI soft to palpation, non-tender and non-distended Extremity normal capillary refill and no clubbing, cyanosis or edema General Extremity: no tenderness to palpation of joints or extremities Skin no rashes or lesions noted General Skin Exam: turgor normal Lesions: no lesions Rashes: no rashes Neuro CN's II-XII intact bilaterally Speech: speech normal Motor Exam: strength 5/5 throughout; Negative for general weakness Psych thought process normal, cooperative and affect normal Appearance: appropriate Lab / Micro Data 10/15/24 06:25 10/14/24 16:00 Labs: Laboratory Results - last 24 hr 10/14/24 16:00: WBC 6.2, RBC 1.93 L, Hgb 4.8 L*, Hct 16.7 L, MCV 86.5, MCH 24.9 L, MCHC 28.7 L, RDW Std Deviation 67.9 H, RDW Coeff of Samira 21.7 H, Plt Count 274, MPV 11.4, Immature Gran % (Auto) (more content not included)... Normal [facility] Eosinophil percentageOrdered By: Kate Castillo on 10-15-2024 Eosinophils/100 WBC (Bld) 4.7 % 0-5 [facility] Immature granulocytes/100 WB C Auto (Bld)Ordered By: Kate Castillo on 10-15-2024 Immature granulocytes/100 WBC (Bld) 0.200 % 0.0-0.9 [facility] Comment on above: IG% - Immature Granu locytes (promyelocytes, myelocytes and metamyelocytes) > 1% indicates that a LEFT SHIFT is Present. Lymphocytes Auto (Unsp spec) [#/Vol]Ordered By: Kate Castillo on 10-15-2024 Lymphocytes (Bld) [#/Vol] 1.05 10*3/uL 0.83-4.51 [facility] Lymphocytes/100 WBC Auto (Un sp spec)Ordered By: Kate Castillo on 10-15-2024 Lymphocytes/100 WBC (Bld) 26.1 % 19-41 [facility] Magnesiumon 10-15-2024 Magnesium [Mass/Vol] 1.8 mg/dL Normal 1.6-2.6 [facility] Comment on above: Performed By: #### L 500.2500, L500.3400 #### [facility] [address] [place], [address] Monocyte percentageOrdered B y: Kate Castillo on 10-15-2024 Monocytes/100 WBC (Bld) 10.9 % High 0-10 [facility] Neutrophil percentageOrdered By: Kate Castillo on 10-15-2024 Neutrophils/100 WBC (Bld) 57.6 % 47-70 [facility] Nucleated red blood cell per centageOrdered By: Kate Castillo on 10-15-2024 Nucleated RBC/100 WBC (Bld) [Ratio] 0.5 % 0-5 [facility] Abdomen/Pelvis WITH Contrast on 10-14-2024 Abdomen/Pelvis WITH Contrast [facility] Imaging Services [address] [place], [place] [address] Abdomen/Pelvis WITH Contrast MR#: [id number] Acct: [id number] Name: DIMITRI PAINTER Rep #: [id number] : 1945 M 79 From: Sunny Lopez MD PCP: Dr. Otilia Lopez MD Status: REG ER Study: Abdomen/Pelvis WITH Contrast Date of Exam: Exam# [id number] Ordering Dr: Librado Holm MD PROCEDURE: ABDOMEN/PELVIS WITH CONTRAST REASON FOR EXAM: Painless jaundice, weight loss concern pancreatic cancer TECHNIQUE: Abdomen and pelvis CT with intravenous contrast. COMPARISON: None. FINDINGS: Lung bases: Clear Liver: Diffuse fatty infiltration. There are multiple hypodensities in the bilateral lobes with the largest measuring 2.8 cm. Gallbladder: Gallstone. Spleen: Unremarkable. Pancreas: Dilated pancreatic duct. No suspicious masses. Adrenals: Unremarkable. Kidneys: Unremarkable. Bowel: Significant amount of stool noted throughout the colon Appendix: Normal. Lymph nodes: No suspicious lymph node enlargement. Vasculature: Mild diffuse atherosclerotic calcifications are noted. 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 Peritoneum / Retroperitoneum: No ascites. No free air. Bones: Unremarkable. CT/Abdomen/Pelvis WITH Contrast IMPRESSION: 1. Dilated pancreatic duct with no suspicious mass. 2. Hepatic steatosis with hepatic cysts 3. Significant amount of stool in the colon. Correlate with constipation. 4. Celiac artery pseudoaneurysm 5. Cholelithiasis One or more dose reduction techniques were used (e.g., Automated exposure control, adjustment of the mA and/or kV according to patient size, use of iterative reconstruction technique). Reading Location: [facility] CC: Dr. Otilia Lopez MD; Dr. Librado Holm MD Features Editor: Signed Normal [facility] Acanthocyte detectionOrdered By: Librado Holm on 10-14-2024 Acanthocytes 1+ [facility] BRCon 10-14-2024 RC Normal [facility] Comment on above: Result Comment: [id number] OP RC TRANSFUSED 10/14/24 2147 [id number] OP RC TRANSFUSED 10/14/24 1804 Performed By: #### L 100.0500 #### [facility] [address] [place], [place], [address] Result Comment: [id number] OP RC TRANSFUSED 10/15/24 0926 [id number] OP RC TRANSFUSED 10/15/24 1136 Basic Metabolic Profile (BMP )on 10-14-2024 BUN/CRE 21.8 RATIO High 10-20 [facility] Comment on above: Performed By: #### L 500.2500, L500.3400 #### [facility] [address] [place], [place], [id number] CA,Total 8.6 mg/dL Normal 8.5-10.1 [facility] Comment on above: Performed By: #### L 500.2500, L500.3400 #### [facility] [address] [place], [address] Chloride [Moles/Vol] 107 mmol/L Normal 98-107 [facility] Comment on above: Performed By: #### L 500.2500, L500.3400 #### [facility] [address] [place], [address] CO2 [Moles/Vol] 25.0 mmol/L Normal 21.0-32.0 [facility] Comment on above: Performed By: #### L 500.2500, L500.3400 #### [facility] [address] [place], [address] Creatinine [Mass/Vol] 0.96 mg/dL Normal 0.70-1.[address] [facility] Comment on above: Result Comment: The validity of the calculated GFR GFRAA in patients over 70 years has not been determined. Clinical correlation is essential. Performed By: #### L 500.2500, L500.3400 #### [facility] [address] [place], [address] ECRCL 48.35 ml/min Normal [facility] Comment on above: Performed By: #### L 500.2500, L500.3400 #### [facility] [address] [place], [address] EST GFR - AA 96 mL/min Normal >60 [facility] Comment on above: Result Comment: Afri can Slovak GFR Calc Performed By: #### L 500.2500, L500.3400 #### [facility] [address] [place], [address] GAP 7 Normal 5-15 [facility] Comment on above: Performed By: #### L 500.2500, L500.3400 #### [facility] [address] [place], [address] GFR/1.73 sq M.predicted among non-blacks MDRD (S/P/Bld) [Vol rate/Area] 80 mL/min/{1.73_m2} Normal >60 [facility] Comment on above: Result Comment: Non- GFR Calc Performed By: #### L 500.2500, L500.3400 #### [facility] [address] [place], [address] Glucose [Mass/Vol] 132 mg/dL High 74-106 [facility] Comment on above: Result Comment: Fast ing Glucose result greater than or equal to 126 mg/dL suggests DIABETES MELLITUS per A.D.A. criteria. Performed By: #### L 500.2500, L500.3400 #### [facility] [address] [place], [address] Potassium [Moles/Vol] 4.2 mmol/L Normal 3.5-5.[address] [facility] Comment on above: Performed By: #### L 500.2500, L500.3400 #### [facility] [address] [place], [address] Sodium [Moles/Vol] 140 mmol/L Normal 136-145 [facility] Comment on above: Performed By: #### L 500.2500, L500.3400 #### [facility] [address] [place], [address] Urea nitrogen [Mass/Vol] 21 mg/dL High 7-18 [facility] Comment on above: Performed By: #### L 500.2500, L500.3400 #### [facility] [address] [place], [address] Bilirubin Test strip Ql (U)O rdered By: Librado Holm on 10-14-2024 Bilirubin Ql (U) Negative Negative [facility] CBC-Complete Blood Cnt No Di ffon 10-14-2024 HCT Normal 40-54 [facility] Comment on above: Result Comment: NO S PECIMEN REC'D Performed By: #### L 500.2500, L500.3400 #### [facility] [address] [place], [address] HGB Normal 13.0-16.5 [facility] Comment on above: Result Comment: NO S PECIMEN REC'D Performed By: #### L 500.2500, L500.3400 #### [facility] [address] [place], [address] MCH Normal 27.0-32.0 [facility] Comment on above: Result Comment: NO S PECIMEN REC'D Performed By: #### L 500.2500, L500.3400 #### [facility] [address] [place], [address] MCHC Normal 32-36 [facility] Comment on above: Result Comment: NO S PECIMEN REC'D Performed By: #### L 500.2500, L500.3400 #### [facility] [address] [place], [address] MCV Normal 80-94 [facility] Comment on above: Result Comment: NO S PECIMEN REC'D Performed By: #### L 500.2500, L500.3400 #### [facility] [address] [place], [address] PLT Normal 150-450 [facility] Comment on above: Result Comment: NO S PECIMEN REC'D Performed By: #### L 500.2500, L500.3400 #### [facility] [address] [place], [address] RBC Normal 4.6-6.2 [facility] Comment on above: Result Comment: NO S PECIMEN REC'D Performed By: #### L 500.2500, L500.3400 #### [facility] [address] [place], [address] RDW CV Normal 11.6-14.6 [facility] Comment on above: Result Comment: NO S PECIMEN REC'D Performed By: #### L 500.2500, L500.3400 #### [facility] [address] [place], [address] RDW SD Normal 35.1-43.9 [facility] Comment on above: Result Comment: NO S PECIMEN REC'D Performed By: #### L 500.2500, L500.3400 #### [facility] [address] [place], [address] WBC Normal 4.4-11.0 [facility] Comment on above: Result Comment: NO S PECIMEN REC'D Performed By: #### L 500.2500, L500.3400 #### [facility] [address] [place], [address] CNPNon 10-14-2024 [facility] Telephone ([facility]) -- DIMITRI PAINTER ([id number]) 1945 M Date Time Provider Department 10/14/24 PATITO AMARAL [facility] During your visit today, we recorded the following information about you: Masha Degroot RN 10/14/2024 12:03 PM Signed Patient called in stated he has increase SOB with ambulation. NOV 10/29/2024 following PFT's. Patient is compliant with medications and looking for recommendations. Patient denies cough, but stated he has a lot of mucus. Patient is using saline nebulized solution and Mucinex. Patient would like to see if there is a sooner appointment available. SHARDA Bower Amanda, RN 10/14/2024 1:16 PM Signed Patient's called stated patient has a jaundice look to him and waxy yellow/greyish look to his skin, mostly his face. Patient's stated he has looked this way for approximately 1 month. Patient's stated patient has lost ~ 6lbs in the last month. Not really eating. Patient's stated patient is sleeping all the time. Patient's stated patient had pneumothorax about 2 years ago and these are all the same things she had seen previous. Spoke with patient, SHARLA. Advised patient go to ER to get checked. Patient stated he also has c/o of hip pain. Patient stated he will go to [facility]. Advised will also send to PCP. Masha Degroot RN Allergies As of Date: 10/14/2024 Noted Allergy Reaction ANESTHESIA S/I-40 (PROPOFOL) (PRO*09/13/2022 14 - Other: See Comments Comments: With use of anesthesia knocks him out, doesn't need much per . Date Reviewed: 06/27/2024 Reviewed by: Lyssa Lewis MA - Fully Assessed Reason for Visit: Appointment [[id number]] Patient Question [[id number]] Prescriptions as of 10/14/2024 - meloxicam (MOBIC) 15 mg tablet Take 1 tablet by mouth once daily. With food. - lovastatin 40 mg tablet Take 1 tablet by mouth daily at bedtime. - TRELEGY ELLIPTA 200-62.5-25 mcg inhalation powder USE 1 INHALATION BY MOUTH ONCE DAILY AT THE SAME TIME EACH DAY DIRECTED - sodium chloride (NEBUSAL) 3 % nebulizer solution Use 4 mL via nebulizer two times a day as needed for cough (to help thin secretions). - docusate sodium (COLACE) 100 mg capsule once daily. - guaiFENesin (MUCINEX) 600 mg 12 hr tablet Take 2 tablets by mouth two times a day. - albuterol (PROVENTIL) 2.5 mg /3 mL (0.083 %) nebulizer solution Use 3 mL via nebulizer every 4 hours as needed for wheezing/shortness of breath. Use over 5-15minutes. - fluticasone (FLONASE) 50 mcg/actuation nasal spray Use 1-2 Sprays in each nostril once daily. - albuterol HFA (PROAIR HFA) 90 mcg/actuation inhaler Inhale 2 Puffs by mouth every 4 hours as needed for wheezing/shortness of breath. Take as directed - OXYGEN, HOME THERAPY, 2 L/min by Nasal Cannula route continuous. - vit A,C,H-Wqwu-Cpdbkx (PRESERVISION AREDS) 2,148 mcg-113 mg-45 mg-17.4mg tab Take 1 tablet by mouth twice daily. - aspirin, enteric coated (ASPIRIN, ENTERIC COATED) 81 mg EC tablet Take 81 mg by mouth once daily. Indications: prevention of transient ischemic attack - acetaminophen (TYLENOL) 500 mg tablet Take 2 tablets by mouth every 6 hours as needed for pain. Indications: pain - Propylene Glycol-Glycerin 1-0.3 % drop Use in both eyes. - TIMOLOL MALEATE OPHTHALMIC Use in eyes. Left eye Problem List As Of Date 10/14/2024 Noted Resolved Hyperlipidemia [E78.5] 06/22/2011 Hypertension [I10] 06/22/2011 12/08/2020 Basal cell carcinoma [C44.91] 07/09/2012 BPH (benign prostatic hyperplasia) [N40.0] 07/26/2012 11/17/2017 Elevated prostate specific antigen (PSA) [R97.2*07/26/2012 11/17/2017 Prostate cancer [C61] 08/09/2012 Lumbosacral pain [M54.50] 03/11/2013 Trochanteric bursitis [M70.60] 03/14/2013 11/17/2017 Pneumothorax [J93.9] 08/28/2022 Nicotine use disorder, F17.2 [F17.200] 08/28/2022 Severe protein-calorie malnutrition (HCC) [E43] 08/29/2022 12/21/2023 Encounter Status:Closed by MASHA DEGROOT on 10/14/24 Normal [facility] Emergency Department Summary on 10-14-2024 Emergency Department Summary [facility] Medical Records Department [address] [place] [address] Emergency Department Summary 10/14/24 MR#: [id number] Acct: [id number] Name: DIMITRI PAINTER Rep #: [id number] : 1945 79 From: Librado Holm MD PCP: Dr. Otilia Lopez MD Status:ADM IN Location: ICU ICU05-1 HPI History of Present Illness Chief Complaint: Shortness of Breath Detail of Chief Complaint: Fatigue, weight loss, decreased appetite history of COPD Informant: patient and family Onset/Context/Timing Onset: Weeks Context: Gradual Onset Timing: Continuous Quality: Detailed HPI narrative Location: Hepatobiliary Current Severity: Moderate Maximum Severity: Moderate Worsened by: Nothing Relieved by: Nothing Associated Symptoms Associated Symptoms: HPI narrative Narrative Narrative: Patient is an 79-year-old male. He is a former smoker. He has not smoked in 15 years. He was a former drinker and quit 20 years ago. He presents because of fatigue, weight loss, no appetite and increased shortness of breath per triage. He denied this to me. Patient has lost 9 pounds in 3 months. He has no appetite. He has no energy. He does wear oxygen at night because concerned that he may have sleep apnea. He apparently never underwent formal testing. Patient endorses dark-colored urine for 3 to 4 weeks. Patient denies abdominal pain or back pain. He has had chronic left hip pain and it was felt to be due to bursitis and placed on NSAIDs. No images were obtained. He denies fever or chills. He does endorse weight loss and night sweats. He denies headache, visual, ocular auditory symptoms. He denies chest pain, increased shortness of breath from baseline, orthopnea or PND. He does endorse swelling of his legs. Patient does endorse change in caliber of his stool. He has not noticed change in consistency or color. Recent Illness/Hospitalization: No PFSH PFS Medical History Pneumothorax Asthma exacerbation in COPD Prostate CA COPD (chronic obstructive pulmonary disease) Glaucoma High cholesterol Home Medications ???Medication ???Instructions ???Recorded ???Last Taken ???Type artificial tears(hypromellose) 0.3 1 drp EACH EYE BID DRY EYE 08/2510/13/24 History % eye drops aspirin 81 mg tablet,delayed 81 mg PO DAILY HEART HEALTH 10/13/24 History release lovastatin 40 mg tablet 40 mg PO DAILY CHOLESTEROL 2 10/13/24 History timolol maleate 0.5 % eye drops 1 drp EACH EYE BID GLUCOMA 08/25/2 2 10/13/24 History albuterol sulfate 90 mcg/actuation 2 puff inhalation Q6H PRN Dyspne a 12/13/22 01/05/24 History aerosol inhaler docusate sodium 100 mg capsule 100 mg PO QHS 12/13/22 10/13/24 Hi story (Colace) fluticasone fur. 200 mcg-umeclid 1 inh inhalation 212912/13/22 History 62.5 mcg-vilant 25 mcg inhalat.powder (Trelegy Ellipta) fluticasone propionate 50 1 spray intranasal DAILY PRN nasal 12/13/22 01/05/24 History mcg/actuation nasal congestion spray,suspension guaifenesin 600 mg tablet, 600 mg PO BID 12/13/22 10/13/24 Hi story extended release 12 hr (Mucinex) acetaminophen 500 mg tablet 500 - 1,000 mg PO Q6H PRN pain Unknown History loratadine 10 mg tablet (Allergy 10 mg PO DAILY 10/14/24 10/13/24 H istory Relief (loratadine)) vitamins A,C,H-ljvt-kmebjr 2,148 2 tab PO BID 10/14/24 10/13/24 His tory mcg-113 mg-45 mg-17.4 mg tablet (Eye Multivitamin) Allergy/AdvReac Type Severity Reaction Status Date / Time propofol Allergy Severe Other Verified 10/14/24 15:24 Family History Other COPD (chronic obstructive pulmonary disease) Heart disease Hypertension Surgical History H/O radical prostatectomy Social History household members: family Smoking Status: Former smoker alcohol intake: former ROS ROS ED Constitutional Constitutional ED: Reports sweats and weight loss; Denies chills, fever(s) or subjective Eyes Eyes: Denies blurry vision or change in vision ENT ENT ED: Denies ear pain, rhinorrhea or sore throat Cardiovascular Cardiovascular: Denies chest pain, orthopnea, palpitations or paroxysmal nocturnal dyspnea Respiratory/Chest Respiratory/Chest: Reports dyspnea; Denies cough, dyspnea on exertion, orthopnea, paroxysmal nocturnal dyspnea or sputum Gastrointestinal Gastrointestinal: Denies abdominal pain, constipation, diarrhea, melena or vomiting Genitourinary Genitourinary ED: Reports other Details: Patient endorses dark-colored urine. ; Denies dysuria, hematuria or urinary frequency Musculoskeletal Musculoskeletal: Denies arthralgias, back (more content not included)... Normal [facility] Epithelial cells.squamous LM Ql (Urine sed)Ordered By: Librado Holm on 10-14-2024 Epithelial cells.squamous LM.HPF (Urine sed) [#/Area] 0 /[HPF] 0-5 [facility] Glucose Ql (U)Ordered By: Chilango Holm on 10-14-2024 Urine Glucose (UA) Normal mg/dl Normal [facility] H AND P Exam - [facility] 10-14-2024 H&P Exam - Hospitalist [facility] Medical Records Department [address] [place] [id number] H P Exam - Hospitalist 10/14/242005 MR#: [id number] Acct: [id number] Name: DIMITRI PAINTER Rep #: [id number] : 1945 79 From: Kate Castillo MD PCP: Dr. Otilia Lopez MD Status:ADM IN Location: ICU ICU05-1 HPI - General General Date of Admission: 10/14/24 Date of Service: 10/14/24 Chief Complaint: Dark urine, fatigue, SOB HPI Narrative DIMITRI PAINTER, is a 79-year-old male history of COPD, prostate cancer, former smoker presented [facility] ED 10/14/2024 due to fatigue, weight loss, poor appetite and increased shortness of breath. Has lost 9 pounds in 3 months and has no appetite or energy. He does wear oxygen at night because he is concerned he may have sleep apnea but never underwent formal testing. Has had dark-colored urine for 3 to 4 weeks and also has had a chronic left hip pain suspected to be due to bursitis and has been placed on NSAIDs. In the ED heart rate low 100s with initial blood pressure of 105/67 respiratory rate of 20. Pulse ox initially 79% but is then documented that was a poor waveform. Hemoglobin 4.8 with his last hemoglobin 14.5 on 01/06/2024. BMP with slightly elevated BUN of 21 otherwise within normal limits and liver profile within normal limits. Lactic acid 2.2. Patient typed and crossed for [address] abdomen pelvis obtained which showed dilated pancreatic duct with no suspicious mass, hepatic steatosis with hepatic cysts, significant stool burden, cholelithiasis and celiac artery pseudoaneurysm. Patient's UA with gross hematuria. Urology contacted and recommended admission. Hospitalist contacted for admission, patient evaluated at bedside and reports as above with the several weeks of fatigue, decreasing weight with poor p.o. intake and increasing shortness of breath. Patient reports his urine has been dark for 3 to 4 weeks and is intermittently darker than others. He does intermittently get constipated but reports he had a normal bowel movement earlier today. Occasionally gets a tight feeling in his chest over the past couple weeks as well but not presently having this concern. Currently patient receiving blood and reports he feels about the same as when he came in. Denies any nausea or vomiting, no abdominal pain, reports his only pain is some left hip pain for which she previously was taking meloxicam but did not find it helpful so he is no longer taking this. Patient denies any dark or bloody stool. Additionally patient reports he has been able to urinate well, did pass a clot earlier but otherwise has been feeling like he is emptying his bladder well, also denies any suprapubic tenderness. [facility] Medical History Pneumothorax Asthma exacerbation in COPD Prostate CA COPD (chronic obstructive pulmonary disease) Glaucoma High cholesterol Home Medications ???Medication ???Instructions ???Recorded ???Last Taken ???Type artificial tears(hypromellose) 0.3 1 drp EACH EYE BID DRY EYE 08/2510/13/24 History % eye drops aspirin 81 mg tablet,delayed 81 mg PO DAILY HEART HEALTH 10/13/24 History release lovastatin 40 mg tablet 40 mg PO DAILY CHOLESTEROL 2 10/13/24 History timolol maleate 0.5 % eye drops 1 drp EACH EYE BID GLUCOMA 2 10/13/24 History albuterol sulfate 90 mcg/actuation 2 puff inhalation Q6H PRN Dyspne a 12/13/22 01/05/24 History aerosol inhaler docusate sodium 100 mg capsule 100 mg PO QHS 12/13/22 10/13/24 Hi story (Colace) fluticasone fur. 200 mcg-umeclid 1 inh inhalation 212912/13/22 History 62.5 mcg-vilant 25 mcg inhalat.powder (Trelegy Ellipta) fluticasone propionate 50 1 spray intranasal DAILY PRN nasal 12/13/22 01/05/24 History mcg/actuation nasal congestion spray,suspension guaifenesin 600 mg tablet, 600 mg PO BID 12/13/22 10/13/24 Hi story extended release 12 hr (Mucinex) acetaminophen 500 mg tablet 500 - 1,000 mg PO Q6H PRN pain Unknown History loratadine 10 mg tablet (Allergy 10 mg PO DAILY 10/14/24 10/13/24 H istory Relief (loratadine)) vitamins A,C,P-zuuv-jarmeb 2,148 2 tab PO BID 10/14/24 10/13/24 His tory mcg-113 mg-45 mg-17.4 mg tablet (Eye Multivitamin) Allergy/AdvReac Type Severity Reaction Status Date / Time propofol Allergy Severe Other Verified 10/14/24 15:24 Family History Other COPD (chronic obstructive pulmonary disease) Heart disease Hypertension Surgical History H/O radical prostatectomy Social History household members: family Smoking Status: Former smoker alcohol intake: former ROS (more content not included)... Normal [facility] Ketones Test strip Ql (U)Ord ered By: Librado Holm on 10-14-2024 Ketones Ql (U) 5 mg/dl High Negative [facility] Lactic Acidon 10-14-2024 Lactate [Moles/Vol] 1.7 mmol/L Normal 0.4-1.9 [facility] Comment on above: Performed By: #### L 500.2500, L500.3400 #### [facility] Laboratory [address] [place], [address] Lactate [Moles/Vol] 2.2 mmol/L Invalid Interpretation Code 0.4-1.9 [facility] Comment on above: Order Comment: Y Result Comment: Crit ical Result(s) Called at: 17:02:36 10/14/2024 by: NICOL JANSEN TO ROSARIO VASQUEZ. Results read back by same. Performed By: #### L 500.2500, L500.3400 #### [facility] [address] [place], [address] Lactic acid measurementOrder ed By: Librado Holm on 10-14-2024 Lactate [Moles/Vol] 1.7 mmol/L 0.4-2.0 [facility] LipaseOrdered By: Librado Holm on 10-14-2024 Lipase [Catalytic activity/Vol] 77 U/L Normal 73-393 [facility] Comment on above: Performed By: #### L 500.2500, L500.3400 #### [facility] [address] [place], [address] Liver Profileon 10-14-2024 Albumin [Mass/Vol] 3.2 g/dL Normal 3.2-5.0 [facility] Comment on above: Performed By: #### L 500.2500, L500.3400 #### [facility] [address] [place], [address] ALK P 64 U/L Normal 45-117 [facility] Comment on above: Performed By: #### L 500.2500, L500.3400 #### [facility] [address] [place], [address] ALT [Catalytic activity/Vol] 19 U/L Normal 16-61 [facility] Comment on above: Performed By: #### L 500.2500, L500.3400 #### [facility] [address] [place], [address] AST [Catalytic activity/Vol] 18 U/L Normal 15-37 [facility] Comment on above: Performed By: #### L 500.2500, L500.3400 #### [facility] [address] [place], [address] Bilirubin [Mass/Vol] 0.30 mg/dL Normal 0.20-1.00 [facility] Comment on above: Result Comment: For patients on eltrombopag therapy, use of Dimension [place] TBIL is not recommended. Performed By: #### L 500.2500, L500.3400 #### [facility] [address] [place], [address] Bilirubin.direct [Mass/Vol] 0.15 mg/dL Normal 0.00-0.30 [facility] Comment on above: Performed By: #### L 500.2500, L500.3400 #### [facility] [address] [place], [address] Globulin (S) [Mass/Vol] 3.2 g/dL Normal 2.2-4.2 [facility] Comment on above: Performed By: #### L 500.2500, L500.3400 #### [facility] [address] [place], [address] T PROT 6.4 g/dL Normal 6.4-8.2 [facility] Comment on above: Performed By: #### L 500.2500, L500.3400 #### [facility] [address] [place], [address] Microscopic analysis of urin e for red blood cells (RBC)Ordered By: Librado Holm on 10-14-2024 Urine RBC > 100 SEEN /hpf 0-5 [facility] Mucus LM Ql (Urine sed)Order ed By: Librado Holm on 10-14-2024 Mucus Ql (Urine sed) 0 SEEN /hpf [facility] Nitrite Test strip Ql (U)Ord ered By: Librado Holm on 10-14-2024 Nitrite Ql (U) Negative Negative [facility] Ovalocytes LM Ql (Bld)Ordere d By: Librado Holm on 10-14-2024 Ovalocytes 1+ [facility] Pathologist review Robert (Unsp spec) [Interp]Ordered By: Librado Holm on 10-14-2024 Differential Pathologist's Review Reviewed [facility] Comment on above: Previous reported re sult: Martha maria teresa Edited by: MAYNOR on 10/16/24:0909SEVERE Normocytic anemia.Clinical correlation necessary.Yariel Anand M.D. 10/16/24 AMENDED REPORT 10/16/24 0909 PATH REV previously reported as: Martha morel Platelets LM Ql (Bld)Ordered By: Librado Holm on 10-14-2024 Platelet Estimate A ADEQ [facility] Polychromasia LM Ql (Bld)Ord ered By: Librado Holm on 10-14-2024 Polychromasia 1+ [facility] Protein Test strip Ql (U)Ord ered By: Librado Holm on 10-14-2024 Protein Ql (U) 500 mg/dl High Negative [facility] Schistocytes LM Ql (Bld)Orde red By: Librado Holm on 10-14-2024 Schistocytes 1+ [facility] Type AND Screenon 10-14-2024 Ab SCREEN GEL Negative Normal [facility] Comment on above: Order Comment: CMV N EG? NNumber of units to transfuse: 2Is this product for anemia associated withhemoglobinopathy? NIs pt's Hgb is = to 7.0 mg/dl or Hct </= 21%? YIs this for PREOP anemia correction prior to anesthesia? NReason for Ordering Blood: ChronicIs there symptomatic anemia? Elise the blood/blood products to be transfused? YIs the patient having/had surgery? Abundio Taylor Performed By: #### L 100.3606 #### [facility] [address] [place], [place], [id number] ABO and Rh group Nom (Bld) Blood group B Rh(D) positive Normal [facility] Comment on above: Order Comment: CMV N EG? NNumber of units to transfuse: 2Is this product for anemia associated withhemoglobinopathy? NIs pt's Hgb is = to 7.0 mg/dl or Hct </= 21%? YIs this for PREOP anemia correction prior to anesthesia? NReason for Ordering Blood: ChronicIs there symptomatic anemia? Elise the blood/blood products to be transfused? YIs the patient having/had surgery? NWmary ellen ReadyNYA Performed By: #### L 100.0500 #### [facility] [address] [place], [address] Urinalysis, Completeon 10-14 WBC 5-10 SEEN Normal 0-5 [facility] Comment on above: Order Comment: Micro scopic field is filled. Other elements may be obscured. COLOR OF URINE MAY AFFECT DIPSTICK RESULTS. CLEAN CATCH Performed By: #### L 400.0001 #### [facility] [address] [place], [address] BACTERIA 1+ /hpf Normal None Seen [facility] Comment on above: Order Comment: Micro scopic field is filled. Other elements may be obscured. COLOR OF URINE MAY AFFECT DIPSTICK RESULTS. CLEAN CATCH Performed By: #### L 400.0001 #### [facility] [address] [place], [address] EPI,SQUAMOUS 0-5 SEEN Normal 0-5 [facility] Comment on above: Order Comment: Micro scopic field is filled. Other elements may be obscured. COLOR OF URINE MAY AFFECT DIPSTICK RESULTS. CLEAN CATCH Performed By: #### L 400.0001 #### [facility] [address] [place], [address] RBC > 100 SEEN Normal 0-5 [facility] Comment on above: Order Comment: Micro scopic field is filled. Other elements may be obscured. COLOR OF URINE MAY AFFECT DIPSTICK RESULTS. CLEAN CATCH Performed By: #### L 400.0001 #### [facility] [address] [place], [address] Mucus Ql (Urine sed) 0 SEEN Normal [facility] Comment on above: Order Comment: Micro scopic field is filled. Other elements may be obscured. COLOR OF URINE MAY AFFECT DIPSTICK RESULTS. CLEAN CATCH Performed By: #### L 400.0001 #### [facility] [address] [place], [address] Urine blood detectionOrdered By: Librado Holm on 10-14-2024 Urine Occult Blood 250 /ul High Negative [facility] Urine clarityOrdered By: Librado Holm on 10-14-2024 Clarity (U) Cloudy Clear [facility] Urine color determinationOrd ered By: Librado Holm on 10-14-2024 Color (U) Red Yellow [facility] Urine leukocyte esterase det ection by dipstickOrdered By: Librado Holm on 10-14-2024 Leukocyte esterase Test strip Ql (U) 25 /ul High Negative [facility] Urine pHOrdered By: Librado kerr on 10-14-2024 pH (U) 6.5 [pH] 5.0 - 8.0 [facility] Urine sediment bacteria coun t by microscopy (number/high power field)Ordered By: Librado Holm on 10-14-2024 Bacteria LM.HPF (Urine sed) [#/Area] 1 /[HPF] None Seen [facility] Urine specific gravity measu rementOrdered By: Librado Holm on 10-14-2024 Specific gravity (U) [Rel density] 1.015 1.002-1.03 0 [facility] Urobilinogen Ql (U)Ordered B y: Librado Holm on 10-14-2024 Urine Urobilinogen Normal mg/dl Normal [facility] White blood cell countOrdere d By: Librado Holm on 10-14-2024 Urine WBC 5-10 SEEN /hpf 0-5 [facility] CNPMala 08-23-2024 CNPN Telephone ([facility]) -- DIMITRI PAINTER ([id number]) 1945 M Date Time Provider Department 08/23/24 OTILIA LOPEZ [facility] During your visit today, we recorded the following information about you: Claudio Fowler MA 08/23/2024 3:53 PM Signed [facility] Signed by Dr Marina Amaral Form faxed. Transmission ok. Allergies As of Date: 08/23/2024 Noted Allergy Reaction ANESTHESIA S/I-40 (PROPOFOL) (PRO*09/13/2022 14 - Other: See Comments Comments: With use of anesthesia knocks him out, doesn't need much per . Date Reviewed: 06/27/2024 Reviewed by: Lyssa Lewis MA - Fully Assessed Reason for Visit: Orders [681] Cmt: Oxgen Prescriptions as of 08/23/2024 - lovastatin 40 mg tablet Take 1 tablet by mouth daily at bedtime. - TRELEGY ELLIPTA 200-62.5-25 mcg inhalation powder USE 1 INHALATION BY MOUTH ONCE DAILY AT THE SAME TIME EACH DAY DIRECTED - meloxicam (MOBIC) 15 mg tablet Take 1 tablet by mouth once daily. With food. - sodium chloride (NEBUSAL) 3 % nebulizer solution Use 4 mL via nebulizer two times a day as needed for cough (to help thin secretions). - docusate sodium (COLACE) 100 mg capsule once daily. - guaiFENesin (MUCINEX) 600 mg 12 hr tablet Take 2 tablets by mouth two times a day. - albuterol (PROVENTIL) 2.5 mg /3 mL (0.083 %) nebulizer solution Use 3 mL via nebulizer every 4 hours as needed for wheezing/shortness of breath. Use over 5-15minutes. - fluticasone (FLONASE) 50 mcg/actuation nasal spray Use 1-2 Sprays in each nostril once daily. - albuterol HFA (PROAIR HFA) 90 mcg/actuation inhaler Inhale 2 Puffs by mouth every 4 hours as needed for wheezing/shortness of breath. Take as directed - OXYGEN, HOME THERAPY, 2 L/min by Nasal Cannula route continuous. - vit A,C,J-Dzfx-Zhzwpu (PRESERVISION AREDS) 2,148 mcg-113 mg-45 mg-17.4mg tab Take 1 tablet by mouth twice daily. - aspirin, enteric coated (ASPIRIN, ENTERIC COATED) 81 mg EC tablet Take 81 mg by mouth once daily. Indications: prevention of transient ischemic attack - acetaminophen (TYLENOL) 500 mg tablet Take 2 tablets by mouth every 6 hours as needed for pain. Indications: pain - Propylene Glycol-Glycerin 1-0.3 % drop Use in both eyes. - TIMOLOL MALEATE OPHTHALMIC Use in eyes. Left eye Problem List As Of Date 08/23/2024 Noted Resolved Hyperlipidemia [E78.5] 06/22/2011 Hypertension [I10] 06/22/2011 12/08/2020 Basal cell carcinoma [C44.91] 07/09/2012 BPH (benign prostatic hyperplasia) [N40.0] 07/26/2012 11/17/2017 Elevated prostate specific antigen (PSA) [R97.2*07/26/2012 11/17/2017 Prostate cancer [C61] 08/09/2012 Lumbosacral pain [M54.50] 03/11/2013 Trochanteric bursitis [M70.60] 03/14/2013 11/17/2017 Pneumothorax [J93.9] 08/28/2022 Nicotine use disorder, F17.2 [F17.200] 08/28/2022 Severe protein-calorie malnutrition (HCC) [E43] 08/29/2022 12/21/2023 Encounter Status:Closed by CLAUDIO FOWLER on 08/23/24 Normal [facility] CT CHEST WO IVCONon 08-12-20 CT CHEST WO IVCON * * *Final Report* * * DATE OF EXAM: Aug 12 2024 3:55PM [facility] 0541 - CT CHEST WO IVCON / PROCEDURE REASON: Abnormal CT of the chest * * * * Physician Interpretation * * * * EXAMINATION: CHEST CT WITHOUT CONTRAST CLINICAL HISTORY: Pneumothorax. Abnormal x-ray. Technique: Spiral CT acquisition of the chest from the thoracic inlet to the upper abdomen without contrast. MQ: [id number] CT Radiation dose: Integrated Dose-length product (DLP) for this visit = 130 mGy*cm CT Dose Reduction Employed: Automated exposure control(AEC) and iterative recon Comparison: CT chest on 06/03/2024 RESULT: Limitations: None. Lines, tubes, and devices: None. Lung parenchyma and airways: The central airways are patent. Noted is interval decrease in size or resolution of multiple nodules in the right lower lobe. A residual nodule noted measuring 1.4 x 1.1 cm, series 7 image 189, previously 2.3 x 1.7 cm. Other smaller nodules are not clearly visualized on the current study. No definite new nodules seen. There are parenchymal bands in the bilateral lower lobes. Irregular reticular density/scarring noted in the left upper lobe, series 7 images 69. The bilateral lungs are remarkable for severe emphysema. Stable biapical scarring and subpleural opacities. Pleural space: No pleural effusion. No pleural thickening. Lower neck, lymph nodes, and mediastinum: The imaged thyroid gland is normal. No lymphadenopathy in the supraclavicular, axillary, mediastinal, or hilar regions. Heart, pericardium, and thoracic vessels: The thoracic aorta and main pulmonary artery are normal in caliber. The cardiac chambers are normal in size. Punctate coronary artery atherosclerotic calcifications are noted, although the study is not optimized for coronary assessment. No pericardial effusion or thickening. Bones and soft tissues: There are degenerative changes in the spine, with multilevel disc space narrowing. No destructive bone lesion. Chest wall is unremarkable. Upper abdomen: Limited study through the upper abdomen demonstrates no interval changes Localizer images: No additional findings. IMPRESSION: Interval decrease in size or resolution of multiple nodules in the right lower lobe. No new nodules identified. Stable irregular reticular densities/scarring in the left upper lobe. Severe emphysema. Features Editor: [facility] Transcribe Date/Time: Aug 16 2024 8:26A Dictated by : KIRILL MUNIZ MD This examination was interpreted and the report reviewed and electronically signed by: KIRILL MUNIZ MD on Aug 16 2024 2:06PM EST [id number] Normal [facility] CNOVon 06-27-2024 CNOV Office Visit (FAMPWS ) -- DIMITRI PAINTER ([id number]) 1945 M Date Time Provider Department 06/27/24 1:20 PM OTILIA LOPEZWS During your visit today, we recorded the following information about you: Pulse Respiration Blood pressure Weight 80/minute 16/minute 110/70 56.7 kg Height 1.638 m Otilia Lopez MD 06/27/2024 4:01 PM Signed Dimitri Painter is a 78 year old male here for a Medicare wellness visit. Medicare Health Risk Assessment General Health Good Exercise: Minutes/Day 30 min Exercise: Days/Week 4 days Alcohol: Daily Use Never Alcohol: Drinks/Day Patient does not drink Alcohol: 6 or more drinks Never Feel off balance No Concerns: Teeth/Dentures No Concerns: Sexual function No Troubled by feelings None of the above Frequency: Eating healthy diet Several days ADLs requiring help None of the above Safety precautions in home/vehicle Yes Smoke, vape, chews tobacco No Difficulty hearing Yes Difficulty seeing Yes Current Providers Specialists: I have reviewed specialist-related care of the patient in the medical record. Current care team: Patient Care Team: Otilia Lopez MD as PCP - General (Family Medicine) Sherley Acosta MD as Physician (Radiation Oncology) Otilia Lopez MD as Home Care Provider (Family Medicine) Dylon Medina MD as Referring (Internal Medicine) Outside specialists seen: Dr. Ferrer at [facility], Dr. Amaral-Pulmonology Medical/Family history review Reviewed and updated problem list, medical/surgical/family/so cial history, medications, and allergies. Opioid use review Opioid Medications (last 90 days) No data to display Anxiety/Depression screening PHQ-2 Score: 0 (Lower risk for depression) Recommendation: no further intervention at this time Cognitive screening Mini Cog Score: 3 Cognitive screening reviewed and No further action needed (score 3-5). Functional Observation Was the patient's Timed Up AND Go test unsteady or >= 12 seconds? No Advance Care Planning Patient did not wish or was not able to name a surrogate decision maker or provide an advance care plan Measurements BP 110/70 Pulse 80 Resp 16 Ht 163.8 cm (5' 4.5) Wt 56.7 kg (125 lb) BMI 21.12 kg/m? Vision Screening: Follows with optometry/ophthalmology Right: 20/40 Left: 20/ impairment Both: 20/40 Assessment/Plan Medicare annual wellness visit, initial (Z00.00) - Counseled on healthy diet and regular exercise - Fall avoidance information provided - Personalized prevention plan provided Otilia Lopez MD Chief Complaint Follow up, left hip pain HPI Dimitri Painter is a 78 year old male who presents here today for above concerns, in addition to Medicare Annual Visit. Pt c/o left hip pain for the last 2-3 weeks, constant ache. Does get better with movement. Has some pain with standing and walking. No pain with laying as he sleeps on his back most the time, but really no pain when laying on his sides. Has used Tylenol. No ice or heat used. Does mitchell some stretches. Hx of bursitis in past to the left hip, did PT and was on Naprosyn. He doesn't remember if this pain is similar to the pain he had with the bursitis. No chest pains, dizziness, or SOB. No bowel, Gi, or urinary issues. Lipid: Tries to watch diet but doesn't eat much. Taking Lovastatin 40 mg daily. He does stay active but no regular exercise regimen. Pneumothorax: uses 2 L oxygen at bedtime and as needed. Follows with Pulmonary Dr. Amaral. He is on saline solution in his nebulizer which has helped reduce the amount of times he has needed the Albuterol solution for nebulizer and albuterol inhaler. He is on Trelegy Ellipta inhaler but it can be costly at times. Past medical history, appointments, medications, allergies reviewed. Previous Medical History PAST MEDICAL HISTORY Diagnosis Date Basal cell cancer right ear Cataract right eye Diverticulosis of colon (without mention of hemorrhage) Glaucoma High cholesterol Hypertension Personal history of colonic polyps Squamous cell carcinoma right forearm Previous Surgical History PAST SURGICAL HISTORY Procedure Laterality Date COLONOSCOPY FLX DX W/COLLJ SPEC WHEN PFRMD age 59 Colonoscopy COLONOSCOPY FLX DX W/COLLJ SPEC WHEN PFRMD 01/05/12 repeat 5 years PROSTATECTOMY;RADICAL RETROPUBIC REPAIR RETINAL DETACHMENT SCLERAL BUCKLING Scleral Buckle Family History FAMILY HISTORY Problem Relation Age of Onset Heart Mother age 65 Diabetes Father age 89 Cancer Sister breast Patient Allergies ALLERGIES Allergen Reactions Anesthesia S/I-40 (* Other: See Comments With use of anesthesia knocks him out, doesn't need much per . Current Medications Current Outpatient Medications on File Prior to Visit Medication Sig sodium chloride (NEBUSAL) 3 % neb (more content not included)... Normal [facility] Comprehensive metabolic 2000 panelon 06-24-2024 Albumin [Mass/Vol] 4.0 g/dL Normal 3.9-4.9 [facility] Comment on above: Order Comment: Speci men Type: BLOOD SPECIMENOrdering Facility: [facility] Address: [facility] [place] [address] Performed By: #### 2 4323-8, 64703-5 ####[facility] LABCLIA [id number] [place] [address] [place] ALP [Catalytic activity/Vol] 87 U/L Normal 38-113 [facility] Comment on above: Order Comment: Speci men Type: BLOOD SPECIMENOrdering Facility: [facility] Address: [address] [place] [address] Performed By: #### 2 4323-8, 86047-2 ####[facility] LABCLIA [id number] [place] [address] [place] ALT [Catalytic activity/Vol] 11 U/L Normal 10-54 [facility] Comment on above: Order Comment: Speci men Type: BLOOD SPECIMENOrdering Facility: [facility] Address: [address] [place] [address] Performed By: #### 2 4323-8, 94617-7 ####[facility] LABCLIA [id number] [place] [address] [place] Anion gap [Moles/Vol] 9 mmol/L Normal 8-15 [facility] Comment on above: Order Comment: Speci men Type: BLOOD SPECIMENOrdering Facility: [facility] Address: [address] [place] [address] Performed By: #### 2 4323-8, 82440-4 ####[facility] LABCLIA [id number] [place] [address] [place] AST [Catalytic activity/Vol] 24 U/L Normal 14-40 [facility] Comment on above: Order Comment: Speci men Type: BLOOD SPECIMENOrdering Facility: [facility] Address: [address] [place] [address] Performed By: #### 2 4323-8, 57858-2 ####[facility] LABCLIA [id number] [place] [address] [place] Bilirubin [Mass/Vol] 0.6 mg/dL Normal 0.2-1.3 [facility] Comment on above: Order Comment: Speci men Type: BLOOD SPECIMENOrdering Facility: [facility] Address: [address] [place] [address] Performed By: #### 2 4323-8, 97623-8 ####[facility] LABCLIA [id number] [place] [address] [place] Calcium [Mass/Vol] 9.2 mg/dL Normal 8.5-10.2 [facility] Comment on above: Order Comment: Speci men Type: BLOOD SPECIMENOrdering Facility: [facility] Address: [address] [place] [address] Performed By: #### 2 4323-8, 35425-1 ####[facility] LABCLIA [id number] [place] [address] [place] Chloride [Moles/Vol] 103 mmol/L Normal 98-107 [facility] Comment on above: Order Comment: Speci men Type: BLOOD SPECIMENOrdering Facility: [facility] Address: [address] [place] [address] Performed By: #### 2 4323-8, 75978-3 ####[facility] LABCLIA [id number] [place] [address] [place] CO2 [Moles/Vol] 26 mmol/L Normal 22-30 [facility] Comment on above: Order Comment: Speci men Type: BLOOD SPECIMENOrdering Facility: [facility] Address: [address] [place] [address] Performed By: #### 2 4323-8, 95228-8 ####[facility] LABCLIA [id number] [place] [address] [place] Creatinine [Mass/Vol] 0.67 mg/dL Low 0.73-1.22 [facility] Comment on above: Order Comment: Speci men Type: BLOOD SPECIMENOrdering Facility: [facility] Address: [address] [place] [address] Performed By: #### 2 4323-8, 07165-7 ####[facility] LABIA [id number] [place] [address] [place] Creatinine and Glomerular filtration rate.predicted panel (S/P/Bld) 95 mL/min/1.73m??? Normal >=60 [facility] Comment on above: Order Comment: Speci men Type: BLOOD SPECIMENOrdering Facility: [facility] Address: [address] [place] [address] Result Comment: Imelda mated Glomerular Filtration Rate (eGFR) is calculated using the 2020 CKD-EPI creatinine equation. This equation utilizes serum creatinine, sex, and age as parameters. The creatinine assay has traceable calibration to isotope dilution-mass spectrometry. Refer to KDIGO guidelines for clinical interpretation. In patients with unstable renal function, e.g. those with acute kidney injury, the eGFR may not accurately reflect actual GFR. Performed By: #### 2 4323-8, 18437-6 ####[facility] LABIA [id number] [place] [address] [place] Glucose [Mass/Vol] 88 mg/dL Normal 74-99 [facility] Comment on above: Order Comment: Speci men Type: BLOOD SPECIMENOrdering Facility: [facility] Address: [address] [place] [address] Result Comment: The [place] Diabetes Association (ADA) provides guidance for cutoff values for fasting glucose and random glucose. The ADA defines fasting as no caloric intake for at least 8 hours. Fasting plasma glucose results between 100 to 125 mg/dL indicate increased risk for diabetes (prediabetes). Fasting plasma glucose results greater than or equal to 126 mg/dL meet the criteria for diagnosis of diabetes. In the absence of unequivocal hyperglycemia, results should be confirmed by repeat testing. In a patient with classic symptoms of hyperglycemia or hyperglycemic crisis, random plasma glucose results greater than or equal to 200 mg/dL meet the criteria for diagnosis of diabetes. Reference: Standards of Medical Care in Diabetes 2016, [place] Diabetes Association. Diabetes Care. 2016.39(Suppl 1). Performed By: #### 2 4323-8, 24434-9 ####[facility] LABIA [id number] [place] [address] [place] Potassium [Moles/Vol] 4.4 mmol/L Normal 3.7-5.1 [facility] Comment on above: Order Comment: Speci men Type: BLOOD SPECIMENOrdering Facility: [facility] Address: [address] [place] [address] Performed By: #### 2 4323-8, ####[facility] LABIA [id number] [place] [address] [place] Protein [Mass/Vol] 7.5 g/dL Normal 6.3-8.0 [facility] Comment on above: Order Comment: Speci men Type: BLOOD SPECIMENOrdering Facility: [facility] Address: [address] [place] [address] Performed By: #### 2 4323-8, ####[facility] LABIA [id number] [place] [address] [place] Sodium [Moles/Vol] 138 mmol/L Normal 136-144 [facility] Comment on above: Order Comment: Speci men Type: BLOOD SPECIMENOrdering Facility: [facility] Address: [address] [place] [address] Performed By: #### 2 4323-8, 60275-3 ####[facility] LABCLIA [id number] [place] [address] [place] Urea nitrogen [Mass/Vol] 14 mg/dL Normal 9-24 [facility] Comment on above: Order Comment: Speci men Type: BLOOD SPECIMENOrdering Facility: [facility] Address: [address] [place] [address] Performed By: #### 2 4323-8, 98015-8 ####[facility] LABCLIA [id number] [place] [address] [place] Lipid 1996 panelon 4 Cholesterol [Mass/Vol] 166 mg/dL Normal <200 [facility] Comment on above: Order Comment: Speci men Type: BLOOD SPECIMENOrdering Facility: [facility] Address: [address] [place] [address] Result Comment: <200 mg/dL, Desirable 200-239 mg/dL, Borderline high >239 mg/dL, High Performed By: #### 2 4323-8, 62485-0 ####[facility] LABIA [id number] [address] [place] Cholesterol in HDL [Mass/Vol] 51 mg/dL Normal >39 [facility] Comment on above: Order Comment: Speci men Type: BLOOD SPECIMENOrdering Facility: [facility] Address: [address] [place] [address] Result Comment: 40-5 9 mg/dL, Acceptable >59 mg/dL, High: Negative risk factor for coronary heart disease <40 mg/dL, Low: Positive risk factor for coronary heart disease Performed By: #### 2 4323-8, 98576-1 ####[facility] LABCLIA [id number] [address] [place] Cholesterol in LDL [Mass/Vol] 102 mg/dL High <100 [facility] Comment on above: Order Comment: Speci men Type: BLOOD SPECIMENOrdering Facility: [facility] Address: [address] [place] [address] Result Comment: <100 mg/dL, Optimal 100-129 mg/dL, Near optimal/above optimal 130-159 mg/dL, Borderline high 160-189 mg/dL, High >189 mg/dL, Very high Secondary prevention optimal LDL Cholesterol levels are recommended to be < 70 mg/dL Performed By: #### 2 4323-8, 35509-8 ####[facility] LABCLIA [id number] [place] [address] [place] Cholesterol in LDL/Cholesterol in HDL [Mass ratio] 2.00 {ratio} Normal <2.54 [facility] Comment on above: Order Comment: Leora cruz Type: BLOOD SPECIMENOrdering Facility: [facility] Address: [address] [place] [address] Result Comment: Refe rence: 1. National Cholesterol Education Program ATP III Guideline At-A-Glance Quick Desk Reference: National Heart, Lung, and Blood [place]. National Institutes of Health. 2001: NIH Publication No. 01-3305. 2. An International Atherosclerosis Society position paper: global recommendations for the management of dyslipidemia: executive summary, Atherosclerosis. 2014: 232(2):410-413. Performed By: #### 2 4323-8, 80977-1 ####[facility] LABCLIA [id number] [place] [address] [place] Cholesterol in VLDL [Mass/Vol] 13 mg/dL Normal <30 [facility] Comment on above: Order Comment: Leora men Type: BLOOD SPECIMENOrdering Facility: [facility] Address: [address] [place] [address] Performed By: #### 2 4323-8, 10468-4 ####[facility] LABCLIA [id number] [place] [id number] [place] Cholesterol non HDL [Mass/Vol] 115 mg/dL Normal <130 [facility] Comment on above: Order Comment: Leora cruz Type: BLOOD SPECIMENOrdering Facility: [facility] Address: [address] [place] [address] Result Comment: <130 mg/dL, Optimal 130-159 mg/dL, Near optimal/above optimal 160-189 mg/dL, Borderline high 190-219 mg/dL, High >219 mg/dL, Very high Secondary prevention optimal non HDL Cholesterol levels are recommended to be <100 mg/dL Performed By: #### 2 4323-8, 39337-5 ####[facility] LABCLIA [id number] [place] [address] [place] Cholesterol.total/Krystal sterol in HDL [Mass ratio] 3.25 {ratio} Normal <5.10 [facility] Comment on above: Order Comment: Speci men Type: BLOOD SPECIMENOrdering Facility: [facility] Address: [address] [place] [address] Performed By: #### 2 4323-8, 21800-5 ####[facility] LABCLIA [id number] [place] [address] [place] FASTING TIME 12 hrs Normal [facility] Comment on above: Order Comment: Speci men Type: BLOOD SPECIMENOrdering Facility: [facility] Address: [address] [place] [address] Performed By: #### 2 4323-8, ####[facility] LABCLIA [id number] [place] [address] [place] Triglyceride [Mass/Vol] 63 mg/dL Normal <[address] [facility] Comment on above: Order Comment: Speci men Type: BLOOD SPECIMENOrdering Facility: [facility] Address: [address] [place] [address] Result Comment: <150 mg/dL, Normal 150-199 mg/dL, Borderline high 200-499 mg/dL, High >499 mg/dL, Very high Performed By: #### 2 4323-8, 74168-6 ####[facility] LABCLIA [id number] [place] [id number] [place] PSA [facility] 10-28-2024 Prostate specific Ag [Mass/Vol] 0.12 ng/mL Normal <2.60 [facility] Comment on above: Order Comment: Speci men Type: BLOOD SPECIMENOrdering Facility: [facility] Address: [address] [facility] [place] [address] Result Comment: Sia hooper PSA test methodology used is the Electrochemiluminescence Immunoassay by [employer]. Total PSA values by differing methodologies cannot be interchanged. Performed By: #### 2 857-1 ####[facility] LABCLIA [id number] [id number] [id number] [facility] [place] CNPNon 06-11[facility]20[facility] -- DIMITRI PAINTER ([id number]) 1945 M Date Time Provider Department 06/11/24 [facility]IR[facility] During your visit today, we recorded the following information about you: Allergies As of Date: 06/11/2024 Noted Allergy Reaction ANESTHESIA S/I-40 (PROPOFOL) (PRO*09/13/2022 14 - Other: See Comments Comments: With use of anesthesia knocks him out, doesn't need much per . Date Reviewed: 05/31/2024 Reviewed by: Rosalinda Vázquez, RT(R) - Fully Assessed Prescriptions as of 06/11/2024 - sodium chloride (NEBUSAL) 3 % nebulizer solution Use 4 mL via nebulizer two times a day as needed for cough (to help thin secretions). - azithromycin (ZITHROMAX) 250 mg tablet Take 2 tabs on the first day, then one tab daily for 4 days. - docusate sodium (COLACE) 100 mg capsule once daily. - guaiFENesin (MUCINEX) 600 mg 12 hr tablet Take 2 tablets by mouth two times a day. - albuterol (PROVENTIL) 2.5 mg /3 mL (0.083 %) nebulizer solution Use 3 mL via nebulizer every 4 hours as needed for wheezing/shortness of breath. Use over 5-15minutes. - guaiFENesin (MUCINEX) 600 mg 12 hr tablet Take 2 tablets by mouth two times a day. - lovastatin 40 mg tablet Take 1 tablet by mouth daily at bedtime. - TRELEGY ELLIPTA 200-62.5-25 mcg inhalation powder USE 1 INHALATION BY MOUTH ONCE DAILY AT THE SAME TIME EACH DAY DIRECTED - fluticasone (FLONASE) 50 mcg/actuation nasal spray Use 1-2 Sprays in each nostril once daily. - albuterol HFA (PROAIR HFA) 90 mcg/actuation inhaler Inhale 2 Puffs by mouth every 4 hours as needed for wheezing/shortness of breath. Take as directed - OXYGEN, HOME THERAPY, 2 L/min by Nasal Cannula route continuous. - vit A,C,H-Phbv-Yvrzjl (PRESERVISION AREDS) 2,148 mcg-113 mg-45 mg-17.4mg tab Take 1 tablet by mouth twice daily. - aspirin, enteric coated (ASPIRIN, ENTERIC COATED) 81 mg EC tablet Take 81 mg by mouth once daily. Indications: prevention of transient ischemic attack - acetaminophen (TYLENOL) 500 mg tablet Take 2 tablets by mouth every 6 hours as needed for pain. Indications: pain - Propylene Glycol-Glycerin 1-0.3 % drop Use in both eyes. - TIMOLOL MALEATE OPHTHALMIC Use in eyes. Left eye Problem List As Of Date 06/11/2024 Noted Resolved Hyperlipidemia [E78.5] 06/22/2011 Hypertension [I10] 06/22/2011 12/08/2020 Basal cell carcinoma [C44.91] 07/09/2012 BPH (benign prostatic hyperplasia) [N40.0] 07/26/2012 11/17/2017 Elevated prostate specific antigen (PSA) [R97.2*07/26/2012 11/17/2017 Prostate cancer [C61] 08/09/2012 Lumbosacral pain [M54.50] 03/11/2013 Trochanteric bursitis [M70.60] 03/14/2013 11/17/2017 Pneumothorax [J93.9] 08/28/2022 Nicotine use disorder, F17.2 [F17.200] 08/28/2022 Severe protein-calorie malnutrition (HCC) [E43] 08/29/2022 12/21/2023 Encounter Status:Closed by ALMA CEDILLO on 06/11/24 [facility] Phan [facility] -- DIMITRI PAINTER ([id number]) 1945 M Date Time Provider Department 06/10/24 RENETTA CHERY [facility] During your visit today, we recorded the following information about you: Renetta Chery APRN.LAST GREASER 06/10/2024 5:43 PM Signed Spoke with patient regarding results of CT chest. There are nodular opacities in the RLL, a density in the JAD, and multiple clustered nodules He was treated with azithromycin prior to this CT chest and his cough has improved some since the antibiotic. He is still using hypertonic saline nebulizer and this is helping produce sputum. Will repeat CT chest in 2 months to follow up on above changes. Patient is in agreement and all questions were answered. Allergies As of Date: 06/10/2024 Noted Allergy Reaction ANESTHESIA S/I-40 (PROPOFOL) (PRO*09/13/2022 14 - Other: See Comments Comments: With use of anesthesia knocks him out, doesn't need much per . Date Reviewed: 05/31/2024 Reviewed by: Rosalinda Vázquez, RT(R) - Fully Assessed Reason for Visit: Orders [681] Results [95] Primary Visit Diagnosis:Abnormal CT of the chest [R93.89] Order(s):CT CHEST WO IVCON [[id number]] Order #: [id number] FUTURE Prescriptions as of 06/10/2024 - sodium chloride (NEBUSAL) 3 % nebulizer solution Use 4 mL via nebulizer two times a day as needed for cough (to help thin secretions). - azithromycin (ZITHROMAX) 250 mg tablet Take 2 tabs on the first day, then one tab daily for 4 days. - docusate sodium (COLACE) 100 mg capsule once daily. - guaiFENesin (MUCINEX) 600 mg 12 hr tablet Take 2 tablets by mouth two times a day. - albuterol (PROVENTIL) 2.5 mg /3 mL (0.083 %) nebulizer solution Use 3 mL via nebulizer every 4 hours as needed for wheezing/shortness of breath. Use over 5-15minutes. - guaiFENesin (MUCINEX) 600 mg 12 hr tablet Take 2 tablets by mouth two times a day. - lovastatin 40 mg tablet Take 1 tablet by mouth daily at bedtime. - TRELEGY ELLIPTA 200-62.5-25 mcg inhalation powder USE 1 INHALATION BY MOUTH ONCE DAILY AT THE SAME TIME EACH DAY DIRECTED - fluticasone (FLONASE) 50 mcg/actuation nasal spray Use 1-2 Sprays in each nostril once daily. - albuterol HFA (PROAIR HFA) 90 mcg/actuation inhaler Inhale 2 Puffs by mouth every 4 hours as needed for wheezing/shortness of breath. Take as directed - OXYGEN, HOME THERAPY, 2 L/min by Nasal Cannula route continuous. - vit A,C,X-Bwff-Sxsost (PRESERVISION AREDS) 2,148 mcg-113 mg-45 mg-17.4mg tab Take 1 tablet by mouth twice daily. - aspirin, enteric coated (ASPIRIN, ENTERIC COATED) 81 mg EC tablet Take 81 mg by mouth once daily. Indications: prevention of transient ischemic attack - acetaminophen (TYLENOL) 500 mg tablet Take 2 tablets by mouth every 6 hours as needed for pain. Indications: pain - Propylene Glycol-Glycerin 1-0.3 % drop Use in both eyes. - TIMOLOL MALEATE OPHTHALMIC Use in eyes. Left eye Problem List As Of Date 06/10/2024 Noted Resolved Hyperlipidemia [E78.5] 06/22/2011 Hypertension [I10] 06/22/2011 12/08/2020 Basal cell carcinoma [C44.91] 07/09/2012 BPH (benign prostatic hyperplasia) [N40.0] 07/26/2012 11/17/2017 Elevated prostate specific antigen (PSA) [R97.2*07/26/2012 11/17/2017 Prostate cancer [C61] 08/09/2012 Lumbosacral pain [M54.50] 03/11/2013 Trochanteric bursitis [M70.60] 03/14/2013 11/17/2017 Pneumothorax [J93.9] 08/28/2022 Nicotine use disorder, F17.2 [F17.200] 08/28/2022 Severe protein-calorie malnutrition (HCC) [E43] 08/29/2022 12/21/2023 Encounter Status:Closed by RENETTA CHERY on 06/10/24 [address] [facility] CT CHEST WO IVCONon 06-03-20 CT CHEST WO IVCON * * *Final Report* * * DATE OF EXAM: Jun 03 2024 3:51PM [facility] 0541 - CT CHEST WO IVCON / PROCEDURE REASON: multiple diagnoses * * * * Physician Interpretation * * * * EXAMINATION: CHEST CT WITHOUT CONTRAST CLINICAL HISTORY: Emphysema. History of left pneumothorax. Technique: Spiral CT acquisition of the chest from the thoracic inlet to the upper abdomen without contrast. MQ: CTCWO_6 CT Radiation dose: Integrated Dose-length product (DLP) for this visit = 154 mGy*cm CT Dose Reduction Employed: Automated exposure control(AEC) and iterative recon Comparison: CT chest 10/21/2022 and 08/25/2022 RESULT: Limitations: None. Lines, tubes, and devices: None. Lung parenchyma and airways: Centrilobular emphysema. There are some large bulla in bilateral lower lungs. There are clustered nodular opacities in the posterior right lower lobe which may be infectious/inflammatory. There are some adjacent nodular opacities abutting the posterior right lower lobe pleural surface. For example there is a 1.6 cm nodular opacity in the posterior right lower lobe (7:174). Scarring or atelectasis in the medial left lower lobe. There is an irregular density in the lateral left upper lobe extending to the pleural surface which likely represents scarring. Central airways are patent. Pleural space: No pleural effusion or pneumothorax. No pleural thickening. Lower neck, lymph nodes, and mediastinum: The imaged thyroid gland is normal. No lymphadenopathy in the supraclavicular, axillary, mediastinal, or hilar regions. Heart, pericardium, and thoracic vessels: The thoracic aorta and main pulmonary artery are normal in caliber. The cardiac chambers are normal in size. Coronary artery atherosclerotic calcifications are noted, although the study is not optimized for coronary assessment. No pericardial effusion or thickening. Bones and soft tissues: No destructive bone lesion. Degenerative disease of the thoracic spine. Chest wall is unremarkable. Upper abdomen: No acute abnormality in the imaged upper abdomen. Unchanged hyperdense cyst in the right kidney. Localizer images: No additional findings. IMPRESSION: 1. There are some nodular opacities in the posterior right lower lobe abutting the pleural surface, possibly due to mucous plugging and atelectasis. Short-term follow-up study is recommended in 3 months to assess for any change. 2. There are multiple clustered nodules in the posterior right lower lobe which are most likely infectious/inflammatory. 3. Centrilobular emphysema. Scarring in the mid left lung. ACTIONABLE RESULT: FOLLOW-UP Acuity: Actionable Findings: Thoracic-Other Routing Code: CT_1 Recommendation: CT Chest WO IVCON Time Frame: 1-3 months COMMUNICATION: Results will be communicated with the ordering provider via [employer] staff message or phone message by [facility] within 2 business days of report finalization. --END OF FINDING-- Features Editor: ANNEMARIE Transcribe Date/Time: Jun 10 2024 10:40A Dictated by : MANOJ AVILA MD This examination was interpreted and the report reviewed and electronically signed by: MANOJ AVILA MD on Jun 10 2024 10:57AM EST [id number] ACTIONABLE Invalid Interpretation Code [facility] -- DIMITRI PAINTER ([id number]) 1945 M Date Time Provider Department 05/29/24 RENETTA CHERY [facility] During your visit today, we recorded the following information about you: Renetta Chery APRN.CNP 05/29/2024 5:41 PM Signed Spoke with patient and spouse regarding results of CXR Patient recently had covid and is still having ongoing coughing, weakness, and fatigue. Denies fevers, chills He is having difficulty coughing up secretions and is already taking mucinex. Ordered azithromycin antibiotic given potential early infiltrate on recent CXR Order sodium chloride nebulizer BID as needed to help thin secretions. Ordered a CT chest for soonest available to evaluate for changes regarding h/o pneumothorax and atelectasis or early infiltrate in the right lung base. All questions answered. Alma Cedillo 05/30/2024 11:45 AM Signed Patient scheduled Monday in [place] for ct Allergies As of Date: 05/29/2024 Noted Allergy Reaction ANESTHESIA S/I-40 (PROPOFOL) (PRO*09/13/2022 14 - Other: See Comments Comments: With use of anesthesia knocks him out, doesn't need much per . Date Reviewed: 05/29/2024 Reviewed by: Renetta Chery APRN.LAST GREASER - Fully Assessed Primary Visit Diagnosis:Pulmonary emphysema, unspecified emphysema type (HCC) [J43.9] Other Visit Diagnoses:Abnormal CXR [R93.89] History of pneumothorax [Z87.09] Order(s):CT CHEST WO [facility] [[id number]] Order #: [id number] FUTURE sodium chloride (NEBUSAL) 3 % nebulizer solutionUse 4 mL via nebulizer two times a day as needed for cough (to help thin secretions).Disp: 240 mLRfl: 1 azithromycin (ZITHROMAX) 250 mg tabletTake 2 tabs on the first day, then one tab daily for 4 days.Disp: 6 tabletRfl: 0 Prescriptions as of 05/30/2024 - sodium chloride (NEBUSAL) 3 % nebulizer solution Use 4 mL via nebulizer two times a day as needed for cough (to help thin secretions). - azithromycin (ZITHROMAX) 250 mg tablet Take 2 tabs on the first day, then one tab daily for 4 days. - docusate sodium (COLACE) 100 mg capsule once daily. - guaiFENesin (MUCINEX) 600 mg 12 hr tablet Take 2 tablets by mouth two times a day. - albuterol (PROVENTIL) 2.5 mg /3 mL (0.083 %) nebulizer solution Use 3 mL via nebulizer every 4 hours as needed for wheezing/shortness of breath. Use over 5-15minutes. - guaiFENesin (MUCINEX) 600 mg 12 hr tablet Take 2 tablets by mouth two times a day. - lovastatin 40 mg tablet Take 1 tablet by mouth daily at bedtime. - TRELEGY ELLIPTA 200-62.5-25 mcg inhalation powder USE 1 INHALATION BY MOUTH ONCE DAILY AT THE SAME TIME EACH DAY DIRECTED - fluticasone (FLONASE) 50 mcg/actuation nasal spray Use 1-2 Sprays in each nostril once daily. - albuterol HFA (PROAIR HFA) 90 mcg/actuation inhaler Inhale 2 Puffs by mouth every 4 hours as needed for wheezing/shortness of breath. Take as directed - OXYGEN, HOME THERAPY, 2 L/min by Nasal Cannula route continuous. - vit A,C,Y-Qigb-Bpxvwh (PRESERVISION AREDS) 2,148 mcg-113 mg-45 mg-17.4mg tab Take 1 tablet by mouth twice daily. - aspirin, enteric coated (ASPIRIN, ENTERIC COATED) 81 mg EC tablet Take 81 mg by mouth once daily. Indications: prevention of transient ischemic attack - acetaminophen (TYLENOL) 500 mg tablet Take 2 tablets by mouth every 6 hours as needed for pain. Indications: pain - Propylene Glycol-Glycerin 1-0.3 % drop Use in both eyes. - TIMOLOL MALEATE OPHTHALMIC Use in eyes. Left eye Problem List As Of Date 05/29/2024 Noted Resolved Hyperlipidemia [E78.5] 06/22/2011 Hypertension [I10] 06/22/2011 12/08/2020 Basal cell carcinoma [C44.91] 07/09/2012 BPH (benign prostatic hyperplasia) [N40.0] 07/26/2012 11/17/2017 Elevated prostate specific antigen (PSA) [R97.2*07/26/2012 11/17/2017 Prostate cancer [C61] 08/09/2012 Lumbosacral pain [M54.50] 03/11/2013 Trochanteric bursitis [M70.60] 03/14/2013 11/17/2017 Pneumothorax [J93.9] 08/28/2022 Nicotine use disorder, F17.2 [F17.200] 08/28/2022 Severe protein-calorie malnutrition (HCC) [E43] 08/29/2022 12/21/2023 Prescriptions ordered this encounter Disp Refills Start End SODIUM CHLORIDE 3 % FOR NEBULIZATION 240 * 1 05/29/2024 Route: NEBULIZATION Sig: Use 4 mL via nebulizer two times a day as needed for cough (to help thin secretions). AZITHROMYCIN 250 MG TABLET 6 ta* 0 05/29/2024 Sig: Take 2 tabs on the first day, then one tab daily for 4 days. Encounter Status:Closed by RENETTA CHERY on 05/29/24 Normal [facility] XR Chest PA and LateralOrder ed By: [facility] Provider on 05-28-2024 Interpretation and review of laboratory results Abnormal [facility] Radiology Result ACTIONABLE Abnormal [facility] Comment on above: This report contains an incidental or actionable finding. This finding may be a new finding separate from the reason your provider ordered the imaging test or it may be an already known finding that needs additional or continued follow-up. Because of this incidental or actionable finding, you may need another test (imaging or a different type of test). Please contact your provider for the next steps. [facility] XR Chest PA and Lateralon IMPRESSION: Significant underlying emphysema. Atelectasis or early infiltrate at the right base Due to the presence of a significant pneumothorax on the left on prior CT scans, Recommend CT chest for complete evaluation currently. ACTIONABLE RESULT: FOLLOW-UP Acuity: Actionable Findings: Thoracic-Other Routing Code: CT_1 Recommendation: Unlisted Recommendation (see report) Time Frame: At the discretion of the clinical team. COMMUNICATION: Results will be communicated with the ordering provider via [employer] staff message or phone message by [facility] within 2 business days of report finalization. --END OF FINDING-- Features Editor: PSCB Transcribe Date/Time: May 28 2024 1:48P Dictated by : ROM BUCK MD This examination was interpreted and the report reviewed and electronically signed by: ROM BUCK MD on May 28 2024 1:52PM [facility] DIVISION OF RADIOLOGY * * *Final Report* * * DATE OF EXAM: May 27 2024 2:49PM [facility] [id number] - XR CHEST 2V FRONTAL/LAT / PROCEDURE REASON: multiple diagnoses * * * * Physician Interpretation * * * * EXAMINATION: CHEST RADIOGRAPH (2 VIEW FRONTAL & LATERAL) CLINICAL HISTORY: Pulmonary emphysema, unspecified emphysema type (HCC) History of pneumothorax MQ: XC2_6 EXAM DATE/TIME: 05/27/2024 2:49 PM COMPARISON: 03/01/2023 chest x-ray and CT chest of 10/21/2022 RESULT: Lines, tubes, and devices: None. Lungs and pleura: Emphysema and large blebs are again noted. Atelectasis or early infiltrate at the right base. Unchanged appearance from September. No pleural fluid Cardiomediastinal silhouette: Normal cardiomediastinal silhouette. Bones and soft tissues: Unremarkable. DIVISION OF RADIOLOGY Provider, [facility] - 05/28/2024 * * *Final Report* * * DATE OF EXAM: May 27 2024 2:49PM [facility] [id number] - XR CHEST 2V FRONTAL/LAT / PROCEDURE REASON: multiple diagnoses * * * * Physician Interpretation * * * * EXAMINATION: CHEST RADIOGRAPH (2 VIEW FRONTAL & LATERAL) CLINICAL HISTORY: Pulmonary emphysema, unspecified emphysema type (HCC) History of pneumothorax MQ: XC2_6 EXAM DATE/TIME: 05/27/2024 2:49 PM COMPARISON: 03/01/2023 chest x-ray and CT chest of 10/21/2022 RESULT: Lines, tubes, and devices: None. Lungs and pleura: Emphysema and large blebs are again noted. Atelectasis or early infiltrate at the right base. Unchanged appearance from September. No pleural fluid Cardiomediastinal silhouette: Normal cardiomediastinal silhouette. Bones and soft tissues: Unremarkable. IMPRESSION IMPRESSION: Significant underlying emphysema. Atelectasis or early infiltrate at the right base Due to the presence of a significant pneumothorax on the left on prior CT scans, Recommend CT chest for complete evaluation currently. ACTIONABLE RESULT: FOLLOW-UP Acuity: Actionable Findings: Thoracic-Other Routing Code: CT_1 Recommendation: Unlisted Recommendation (see report) Time Frame: At the discretion of the clinical team. COMMUNICATION: Results will be communicated with the ordering provider via [employer] staff message or phone message by [facility] within 2 business days of report finalization. --END OF FINDING-- Features Editor: ANNEMARIE Transcribe Date/Time: May 28 2024 1:48P Dictated by : ROM BUCK MD This examination was interpreted and the report reviewed and electronically signed by: ROM BUCK MD on May 28 2024 1:52PM EST [facility] XR CHEST 2V FRONTAL/LATon XR CHEST 2V FRONTAL/LAT * * *Final Repor t* * * DATE OF EXAM: May 27 2024 2:49PM [facility] [id number] - XR CHEST 2V FRONTAL/LAT / PROCEDURE REASON: multiple diagnoses * * * * Physician Interpretation * * * * EXAMINATION: CHEST RADIOGRAPH (2 VIEW FRONTAL and LATERAL) CLINICAL HISTORY: Pulmonary emphysema, unspecified emphysema type (HCC) History of pneumothorax MQ: XC2_6 EXAM DATE/TIME: 05/27/2024 2:49 PM COMPARISON: 03/01/2023 chest x-ray and CT chest of 10/21/2022 RESULT: Lines, tubes, and devices: None. Lungs and pleura: Emphysema and large blebs are again noted. Atelectasis or early infiltrate at the right base. Unchanged appearance from September. No pleural fluid Cardiomediastinal silhouette: Normal cardiomediastinal silhouette. Bones and soft tissues: Unremarkable. IMPRESSION: Significant underlying emphysema. Atelectasis or early infiltrate at the right base Due to the presence of a significant pneumothorax on the left on prior CT scans, Recommend CT chest for complete evaluation currently. ACTIONABLE RESULT: FOLLOW-UP Acuity: Actionable Findings: Thoracic-Other Routing Code: CT_1 Recommendation: Unlisted Recommendation (see report) Time Frame: At the discretion of the clinical team. COMMUNICATION: Results will be communicated with the ordering provider via [employer] staff message or phone message by [facility] within 2 business days of report finalization. --END OF FINDING-- Features Editor: PSCB Transcribe Date/Time: May 28 2024 1:48P Dictated by : ROM BUCK MD This examination was interpreted and the report reviewed and electronically signed by: ROM BUCK MD on May 28 2024 1:52PM EST [id number] ACTIONABLE Invalid Interpretation Code [facility] XR Chest PA and Lateralon Radiology Study observation (narrative) [facility]-20-2024 [facility] DIMITRI PAINTER ([id number]) 1945 M Date Time Provider Department 05/20/24 [facility] your visit today, we recorded the following information about you: Mira Christina LPN 05/20/2024 9:52 AM Signed Pt calls and states the following: COVID 19 positive. COVID -19 DIAGNOSIS: COVID positive 05-17-24 home test. also tested positive same time and her symptoms started same time. COVID-19 EXPOSURE: possible exposed on 05-08-24 at [employer] ONSET: 05/15/24 WORST SYMPTOM: lung congestion/mucus bringing up is thick and green (pt reports he is not prone to pneumonia) COUGH: cough helps to bring up mucus, at times the cough is dry. Feels like it is a barking cough per pt. FEVER: was running a fever but this has resolved RESPIRATORY STATUS: no [id number]: same, not worse but not getting better HIGH RISK DISEASE: COPD, emphysema VACCINE: Yes x 3 (2020) OTHER SYMPTOMS: Achy in hips, chest and shoulders DENIES:difficulty breathing, SOB, chills, fatigue, headache, loss of smell or taste, abdominal pain, diarrhea, vomiting. Pt has been treating the symptoms with Mucinex, Tylenol and nasal spray. Pt instructed to let his pulmonary doctor know what's going on. Please advise pt is there is anything else he can do, medication or x-rays. Pt past the 5 day window. for Paxlovid. Pt did ask about this medication. Pt aware if any difficulty breathing, SOB or symptoms become severe he will need to go to ER. DUGLAS Krishnan Jesse, APRN.LAST GREASER 05/20/2024 12:09 PM Signed Outside of the window of treatment. If the patient develops worsening shortness of breath, then he needs to go to the ER. If he wants anything else, he would need an appointment. Can start with a virtual. Jens Candelaria APRN.Michelle Reinoso LPN 05/20/2024 12:26 PM Signed Patient notified. Verbalized understanding. Allergies As of Date: 05/20/2024 Noted Allergy Reaction ANESTHESIA S/I-40 (PROPOFOL) (PRO*09/13/2022 14 - Other: See Comments Comments: With use of anesthesia knocks him out, doesn't need much per . Date Reviewed: 05/09/2024 Reviewed by: Renetta Chery APRN.ANTONI - Fully Assessed Reason for Visit: COVID positive home test [Other] Prescriptions as of 05/20/2024 - docusate sodium (COLACE) 100 mg capsule once daily. - guaiFENesin (MUCINEX) 600 mg 12 hr tablet Take 2 tablets by mouth two times a day. - albuterol (PROVENTIL) 2.5 mg /3 mL (0.083 %) nebulizer solution Use 3 mL via nebulizer every 4 hours as needed for wheezing/shortness of breath. Use over 5-15minutes. - guaiFENesin (MUCINEX) 600 mg 12 hr tablet Take 2 tablets by mouth two times a day. - lovastatin 40 mg tablet Take 1 tablet by mouth daily at bedtime. - TRELEGY ELLIPTA 200-62.5-25 mcg inhalation powder USE 1 INHALATION BY MOUTH ONCE DAILY AT THE SAME TIME EACH DAY DIRECTED - fluticasone (FLONASE) 50 mcg/actuation nasal spray Use 1-2 Sprays in each nostril once daily. - albuterol HFA (PROAIR HFA) 90 mcg/actuation inhaler Inhale 2 Puffs by mouth every 4 hours as needed for wheezing/shortness of breath. Take as directed - OXYGEN, HOME THERAPY, 2 L/min by Nasal Cannula route continuous. - vit A,C,M-Yvoe-Jywvul (PRESERVISION AREDS) 2,148 mcg-113 mg-45 mg-17.4mg tab Take 1 tablet by mouth twice daily. - aspirin, enteric coated (ASPIRIN, ENTERIC COATED) 81 mg EC tablet Take 81 mg by mouth once daily. Indications: prevention of transient ischemic attack - acetaminophen (TYLENOL) 500 mg tablet Take 2 tablets by mouth every 6 hours as needed for pain. Indications: pain - Propylene Glycol-Glycerin 1-0.3 % drop Use in both eyes. - TIMOLOL MALEATE OPHTHALMIC Use in eyes. Left eye Problem List As Of Date 05/20/2024 Noted Resolved Hyperlipidemia [E78.5] 06/22/2011 Hypertension [I10] 06/22/2011 12/08/2020 Basal cell carcinoma [C44.91] 07/09/2012 BPH (benign prostatic hyperplasia) [N40.0] 07/26/2012 11/17/2017 Elevated prostate specific antigen (PSA) [R97.2*07/26/2012 11/17/2017 Prostate cancer [C61] 08/09/2012 Lumbosacral pain [M54.50] 03/11/2013 Trochanteric bursitis [M70.60] 03/14/2013 11/17/2017 Pneumothorax [J93.9] 08/28/2022 Nicotine use disorder, F17.2 [F17.200] 08/28/2022 Severe protein-calorie malnutrition (HCC) [E43] 08/29/2022 12/21/2023 Encounter Status:Closed by MICHELLE GERARDO on 05/20/24 [facility] Telephone ([facility]) -- DIMITRI PAINTER ([id number]) 1945 M Date Time Provider Department 05/20/24 RENETTA CHERY [facility] During your visit today, we recorded the following information about you: Josias Miguel RN 05/20/2024 10:14 AM Signed Pt called in informing RN he is positive for Covid. Pt tested positive on 05/17. Denies fever/chills currently. He states his temp is 99.0. He has chest congestion (audible on phone). He is able to bring up the mucus. He states he has been taking his Mucinex as ordered still. Pt is taking Flonase as ordered as well. Denies SOB. Pt asking if he would be a candidate for Paxlovid. Per pt, symptoms started on 05/15 which would be 5 days today. RN instructed pt to drink plenty of fluids, this will help thin secretions. RN instructed to keep taking medications as ordered. Renetta Chery APRN.CNP 05/20/2024 10:58 AM Signed Spoke with the patient on the phone. Sx started on 05/15/2024. This is day 6 of symptoms and out of window for paxlovid. Admits to current symptoms of chest congestion and a productive cough of white and occasional green sputum. Feels improvement of chest congestion after producing sputum. Highest temp was 100.4 Denies SOB, wheezing, chills, nightsweats He is using trelegy as prescribed He has used the albuterol inhaler not even once a day. Recommend supportive care of fluids, rest, and analgesia PRN. Recommend continuing mucinex to help thin secretions Recommend using PRN albuterol nebulizer to help with chest congestion and productive cough. Instructed the patient if having worsening chest congestion to get the CXR done that was ordered at [facility]. If starting to have symptoms of COPDAE (wheezing, increased dyspnea, and worsening productive cough) to notify us. If having difficulty breathing, he is instructed to go to the ER for management. All questions answered. Allergies As of Date: 05/20/2024 Noted Allergy Reaction ANESTHESIA S/I-40 (PROPOFOL) (PRO*09/13/2022 14 - Other: See Comments Comments: With use of anesthesia knocks him out, doesn't need much per . Date Reviewed: 05/09/2024 Reviewed by: Renetta Chery APRN.LAST GREASER - Fully Assessed Reason for Visit: Covid Positive [4049] Prescriptions as of 05/20/2024 - docusate sodium (COLACE) 100 mg capsule once daily. - guaiFENesin (MUCINEX) 600 mg 12 hr tablet Take 2 tablets by mouth two times a day. - albuterol (PROVENTIL) 2.5 mg /3 mL (0.083 %) nebulizer solution Use 3 mL via nebulizer every 4 hours as needed for wheezing/shortness of breath. Use over 5-15minutes. - guaiFENesin (MUCINEX) 600 mg 12 hr tablet Take 2 tablets by mouth two times a day. - lovastatin 40 mg tablet Take 1 tablet by mouth daily at bedtime. - TRELEGY ELLIPTA 200-62.5-25 mcg inhalation powder USE 1 INHALATION BY MOUTH ONCE DAILY AT THE SAME TIME EACH DAY DIRECTED - fluticasone (FLONASE) 50 mcg/actuation nasal spray Use 1-2 Sprays in each nostril once daily. - albuterol HFA (PROAIR HFA) 90 mcg/actuation inhaler Inhale 2 Puffs by mouth every 4 hours as needed for wheezing/shortness of breath. Take as directed - OXYGEN, HOME THERAPY, 2 L/min by Nasal Cannula route continuous. - vit A,C,T-Yclk-Dqghjs (PRESERVISION AREDS) 2,148 mcg-113 mg-45 mg-17.4mg tab Take 1 tablet by mouth twice daily. - aspirin, enteric coated (ASPIRIN, ENTERIC COATED) 81 mg EC tablet Take 81 mg by mouth once daily. Indications: prevention of transient ischemic attack - acetaminophen (TYLENOL) 500 mg tablet Take 2 tablets by mouth every 6 hours as needed for pain. Indications: pain - Propylene Glycol-Glycerin 1-0.3 % drop Use in both eyes. - TIMOLOL MALEATE OPHTHALMIC Use in eyes. Left eye Problem List As Of Date 05/20/2024 Noted Resolved Hyperlipidemia [E78.5] 06/22/2011 Hypertension [I10] 06/22/2011 12/08/2020 Basal cell carcinoma [C44.91] 07/09/2012 BPH (benign prostatic hyperplasia) [N40.0] 07/26/2012 11/17/2017 Elevated prostate specific antigen (PSA) [R97.2*07/26/2012 11/17/2017 Prostate cancer [C61] 08/09/2012 Lumbosacral pain [M54.50] 03/11/2013 Trochanteric bursitis [M70.60] 03/14/2013 11/17/2017 Pneumothorax [J93.9] 08/28/2022 Nicotine use disorder, F17.2 [F17.200] 08/28/2022 Severe protein-calorie malnutrition (HCC) [E43] 08/29/2022 12/21/2023 Encounter Status:Closed by JOSIAS MIGUEL on 05/20/24 Normal [facility] CNOVon 05-09-2024 CN Office Visit ([facility] ) -- DIMITRI PAINTER ([id number]) 1945 M Date Time Provider Department 05/09/24 1:00 PM RENETTA CHERY [facility] During your visit today, we recorded the following information about you: Temperature Pulse Respiration Blood pressure 97.2 degrees 86/minute 15/minute 144/98 Weight Height 59 kg 1.727 m Renetta Chery APRN.LAST GREASER 05/09/2024 2:22 PM Signed Patient: Dimitri Painter PCP: Otilia Lopez MD CC: follow up HPI: Dimitri Painter is a 78 year old male former smoker, 20 pack years (quitting 2021) with PMH significant for chronic hypoxemic respiratory failure, pulmonary emphysema, pneumothorax, chronic rhinitis, prostate cancer, and HLD. Last Pulmonary Clinic visit was with Dr. Drake Amaral on 10/30/2023. The plan from this office visit was: -Obtain repeat oximetry with ambulation, nocturnal oximetry - Continue Trelegy, and as needed albuterol. Completed pulmonary rehab - Continue smoking cessation - Continue Claritin Today, the patient feels good since last office visit. Went to [facility] ER in December 2023. Wasn't admitted. Received antibiotic and steroid and breathing treatment. Received nebulizer at this time. Hasn't had to use nebulizer. Admits to occasional MITCHELL. Will feel the dyspnea more when doing work and bending over. Admits to occasional GERD. Admits to rhinorrhea, PND, and sinus congestion. Denies cough, wheezing, fevers, chill, nightsweats, epistaxis, LE edema, weight loss Wears 2LNC with sleep. DME: [employer] Tries to avoid being outside in the heat and humidity. Checks SpO2 at home. Lowest it has been is 88%, will do breathing exercises and this improves to 93-94% within a few minutes. Current therapy: Albuterol nebulizer as needed, Albuterol inhaler as needed, last used a couple weeks ago Flonase loratadine Mucinex Trelegy 200 Here with ROS: Review of Systems Constitutional: Negative for chills, diaphoresis, fever and weight loss. HENT: Positive for congestion. Negative for sinus pain. Respiratory: Positive for shortness of breath. Negative for cough, hemoptysis, sputum production and wheezing. Cardiovascular: Positive for PND. Negative for chest pain and leg swelling. Gastrointestinal: Positive for heartburn. PAST MEDICAL HISTORY No date: Basal cell cancer Comment: right ear No date: Cataract Comment: right eye No date: Diverticulosis of colon (without mention of hemorrhage) No date: Glaucoma No date: High cholesterol No date: Hypertension No date: Personal history of colonic polyps No date: Squamous cell carcinoma Comment: right forearm Allergies: Anesthesia S/I-40 (* Other: See Comments Comment:With use of anesthesia knocks him out, doesn't need much per . docusate sodium (COLACE) 100 mg capsule once daily. guaiFENesin (MUCINEX) 600 mg 12 hr tablet Take 2 tablets by mouth two times a day. albuterol (PROVENTIL) 2.5 mg /3 mL (0.083 %) nebulizer solution Use 3 mL via nebulizer every 4 hours as needed for wheezing/shortness of breath. Use over 5-15minutes. guaiFENesin (MUCINEX) 600 mg 12 hr tablet Take 2 tablets by mouth two times a day. lovastatin 40 mg tablet Take 1 tablet by mouth daily at bedtime. TRELEGY ELLIPTA 200-62.5-25 mcg inhalation powder USE 1 INHALATION BY MOUTH ONCE DAILY AT THE SAME TIME EACH DAY DIRECTED fluticasone (FLONASE) 50 mcg/actuation nasal spray Use 1-2 Sprays in each nostril once daily. albuterol HFA (PROAIR HFA) 90 mcg/actuation inhaler Inhale 2 Puffs by mouth every 4 hours as needed for wheezing/shortness of breath. Take as directed OXYGEN, HOME THERAPY, 2 L/min by Nasal Cannula route continuous. vit A,C,F-Arlx-Rykalk (PRESERVISION AREDS) 2,148 mcg-113 mg-45 mg-17.4mg tab Take 1 tablet by mouth twice daily. aspirin, enteric coated (ASPIRIN, ENTERIC COATED) 81 mg EC tablet Take 81 mg by mouth once daily. Indications: prevention of transient ischemic attack acetaminophen (TYLENOL) 500 mg tablet Take 2 tablets by mouth every 6 hours as needed for pain. Indications: pain Propylene Glycol-Glycerin 1-0.3 % drop Use in both eyes. TIMOLOL MALEATE OPHTHALMIC Use in eyes. Left eye Social History Tobacco Use Smoking status: Former Current packs/day: 0.00 Average packs/day: 0.5 packs/day for 40.0 years (20.0 ttl pk-yrs) Types: Cigarettes Start date: 08/25/1982 Quit date: 08/25/2022 Years since quittin.7 Smokeless tobacco: Never Tobacco comments: Pt stopped smoking the day he was admitted into the hospital. Vaping Use Vaping status: Never Used Substance Use Topics Alcohol use: No Comment: rare Drug use: No Family History Problem Relation Age of Onset Heart Mother age 65 Diabetes Father age 89 Cancer Sister breast PAST SURGICAL HISTORY age 60: COLONOSCOPY FLX DX W/COLLJ SPEC WHEN PFRMD Commen (more content not included)... [facility]) -- DIMITRI PAINTER ([id number]) 1945 M Date Time Provider Department 02/14/24 OTILIA LOPEZ [facility] During your visit today, we recorded the following information about you: Nova Hunter LPN 02/14/2024 10:06 AM Signed Carmen from [facility] calling asking for new rx for patient nebulizer. Received order 01/25/2024 says nebulizer. Needs to have nebulizer with compressor. Pending new order to file. Aware PCP is out until 02/16/2024. Please advise Jens Candelaria APRN.CNP 02/16/2024 7:27 AM Signed Order printed. SASKIA Krueger Brittany L, MA 02/16/2024 7:52 AM Signed Order faxed to [facility] Sharma. Ochoa Hunt MA Allergies As of Date: 02/14/2024 Noted Allergy Reaction ANESTHESIA S/I-40 (PROPOFOL) (PRO*09/13/2022 14 - Other: See Comments Comments: With use of anesthesia knocks him out, doesn't need much per . Date Reviewed: 01/25/2024 Reviewed by: Lyssa Lewis MA - Fully Assessed Reason for Visit: need new rx for nebulizer [Other] Primary Visit Diagnosis:Pulmonary emphysema, unspecified emphysema type (HCC) [J43.9] Order(s):NEBULIZER, WITH COMPRESSOR [[id number]] Order #: [id number] Prescriptions as of 02/16/2024 - docusate sodium (COLACE) 100 mg capsule once daily. - guaiFENesin (MUCINEX) 600 mg 12 hr tablet Take 2 tablets by mouth two times a day. - albuterol (PROVENTIL) 2.5 mg /3 mL (0.083 %) nebulizer solution Use 3 mL via nebulizer every 4 hours as needed for wheezing/shortness of breath. Use over 5-15minutes. - guaiFENesin (MUCINEX) 600 mg 12 hr tablet Take 2 tablets by mouth two times a day. - lovastatin 40 mg tablet Take 1 tablet by mouth daily at bedtime. - TRELEGY ELLIPTA 200-62.5-25 mcg inhalation powder USE 1 INHALATION BY MOUTH ONCE DAILY AT THE SAME TIME EACH DAY DIRECTED - fluticasone (FLONASE) 50 mcg/actuation nasal spray Use 1-2 Sprays in each nostril once daily. - albuterol HFA (PROAIR HFA) 90 mcg/actuation inhaler Inhale 2 Puffs by mouth every 4 hours as needed for wheezing/shortness of breath. Take as directed - OXYGEN, HOME THERAPY, 2 L/min by Nasal Cannula route continuous. - vit A,C,I-Axyk-Ivggzo (PRESERVISION AREDS) 2,148 mcg-113 mg-45 mg-17.4mg tab Take 1 tablet by mouth twice daily. - aspirin, enteric coated (ASPIRIN, ENTERIC COATED) 81 mg EC tablet Take 81 mg by mouth once daily. Indications: prevention of transient ischemic attack - acetaminophen (TYLENOL) 500 mg tablet Take 2 tablets by mouth every 6 hours as needed for pain. Indications: pain - Propylene Glycol-Glycerin 1-0.3 % drop Use in both eyes. - TIMOLOL MALEATE OPHTHALMIC Use in eyes. Left eye Problem List As Of Date 02/14/2024 Noted Resolved Hyperlipidemia [E78.5] 06/22/2011 Hypertension [I10] 06/22/2011 12/08/2020 Basal cell carcinoma [C44.91] 07/09/2012 BPH (benign prostatic hyperplasia) [N40.0] 07/26/2012 11/17/2017 Elevated prostate specific antigen (PSA) [R97.2*07/26/2012 11/17/2017 Prostate cancer [C61] 08/09/2012 Lumbosacral pain [M54.50] 03/11/2013 Trochanteric bursitis [M70.60] 03/14/2013 11/17/2017 Pneumothorax [J93.9] 08/28/2022 Nicotine use disorder, F17.2 [F17.200] 08/28/2022 Severe protein-calorie malnutrition (HCC) [E43] 08/29/2022 12/21/2023 Encounter Status:Closed by OCHOA HUNT on 02/16/24 [facility] CNOVon 01-25-2024 CNOV Office Visit ([facility]WS ) -- DIMITRI PAINTER ([id number]) 1945 M Date Time Provider Department 01/25/24 2:20 PM OTILIA LOPEZ During your visit today, we recorded the following information about you: Pulse Respiration Blood pressure Weight 100/minute 16/minute 120/74 59.9 kg Otilia Lopez MD 01/25/2024 4:54 PM Signed Chief Complaint Patient presents with: ED Follow-up HPI Dimitri Painter is a 78 year old male who presents here today for ER Follow Up. Here with his spouse Kasie. Pt thinks that the pollen and his allergies triggered this congestion and SOB. He went to for SOB and was sent to [facility] ER on 01/06/24 SOB. He had CXR which did not show any obvious pneumonia or collapsed lung. Was treated in ER with albuterol tx while in ER and sent home with Zpak and 7 days of Prednisone. He was advised to follow up with PCP or Pulmonology and to discuss getting nebulizer for home use. He was negative for covid, flu and RSV. Pt follows with Dr. Amaral, member services representative for chronic hypoxemic respiratory failure and emphysema. Pt states he is feeling good, back to normal now. He is checking his Oxygen levels at home regularly. He is using oxygen 2 L at bedtime. Will occ use the oxygen during the day if he is really active or if it is hot and humid. Using his inhalers. Only uses the rescue inhaler maybe once a week. Has the most problem when he is bent over for long period of time. Is using Mucinex 600 mg-1200 mg BID. Below copied from [facility]: Chief Complaint: Shortness of Breath Informant: patient and family Onset/Context/Timing Onset: Days Context: gradual Timing: Continuous Current Severity: Mild Maximum Severity: Mild Worsened by: Nothing Relieved by: Nothing Associated Symptoms cough; Negative for fever or sore throat Chest Pain: Positive for None Narrative Narrative: 78-year-old male history of COPD and asthma. Prior pneumothorax a year and a half ago requiring a chest tube. States been more short of breath last several days. No chest pain. No history of DVT or PE. No hemoptysis. No leg pain or swelling. No recent hospitalization or surgery. He has had a nonproductive cough. Denies fever. Patient is on oxygen at home 2 L at night. He has been wearing it during the day now also. Exam Narrative: 69-year-old male no acute distress vital signs stable afebrile. Pulse ox 94% onroom air. Daughter at bedside. H EENT exam unremarkable. Mytrex membranes. Neck nontender no JVD. No lymphadenopathy. Lungs coarse breath sounds bilaterally with rhonchi. No rales. No excessive wheezing. Equal and symmetrical. Chest wall nontender. No crepitance. No subcu air. Heart tachycardic rate about 120 no murmur. Abdomen soft nontender. Moving all 4 extremities. Calves are nontender without edema or cords. 5-5 waste baler strength. Dorsi plantarflexion intact. Neurologically is awake and alert no focal motor deficits. Medical decision making narrative: 78-year-old male with shortness of breath history of COPD viral pneumonia versusCOPD flare versus cardiac etiology. Versus even a pneumothorax which she has had before in the past. Chest x-ray and cardiac workup. Solu-Medrol IV with DuoNeb and albuterol aerosols. Repeat exam 415 patient is doing much better. He was treated with aerosols and Solu-Medrol. He said his breathing is improved. Patient be discharged home. He has a new cough he is not producing any sputum he placed on Zithromax first dose given here. Prednisone 40 mg a day for the next 7 days. Outpatient follow-up with his primary care physician and/or his member services representative. We did discuss using his inhaler at home and possibly discussed with his primary care physician about getting a nebulizer. Past medical history, appointments, medications, allergies reviewed. Previous Medical History PAST MEDICAL HISTORY Diagnosis Date Basal cell cancer right ear Cataract right eye Diverticulosis of colon (without mention of hemorrhage) Glaucoma High cholesterol Hypertension Personal history of colonic polyps Squamous cell carcinoma right forearm Previous Surgical History PAST SURGICAL HISTORY Procedure Laterality Date COLONOSCOPY FLX DX W/COLLJ SPEC WHEN PFRMD age 59 Colonoscopy COLONOSCOPY FLX DX W/COLLJ SPEC WHEN PFRMD 01/05/12 repeat 5 years PROSTATECTOMY;RADICAL RETROPUBIC REPAIR RETINAL DETACHMENT SCLERAL BUCKLING Scleral Buckle Family History FAMILY HISTORY Problem Relation Age of Onset Heart Mother age 65 Diabetes Father age 89 Cancer Sister breast Patient Allergies ALLERGIES Allergen Reactions Anesthesia S/I-40 (* Other: See Comments With use of anesthesia knocks him out, doesn't need much per . Current Medications Current Outpatient Medications on File Prior to Visit Medication Sig lovastatin 40 mg tablet Take 1 ta (more content not included)... Normal [facility] Absolute lymphocyte countOrd ered By: Amadou Wadsworth on 01-06-2024 Lymphocytes Auto (Unsp spec) [#/Vol] 0.77 10*3/uL 0.83-4.51 [facility] Automated lymphocyte count a s percentage of total leukocytesOrdered By: Amadou Wadsworth on 01-06-2024 Lymphocytes/100 WBC Auto (Unsp spec) 7.8 % 19-41 [facility] Basic Metabolic Profile (BMP )on 01-06-2024 BUN/CRE 15.4 RATIO Normal 10-20 [facility] Comment on above: Order Comment: 'TROP ' Serial specimen #1, #2 or #3: 1 Performed By: #### L 500.2500, L500.3400 #### [facility] Laboratory [address] [place], [address] CA,Total 9.3 mg/dL Normal 8.5-10.1 [facility] Comment on above: Order Comment: 'TROP ' Serial specimen #1, #2 or #3: 1 Performed By: #### L 500.2500, L500.3400 #### [facility] [address] [place], [address] Chloride [Moles/Vol] 98 mmol/L Normal 98-107 [facility] Comment on above: Order Comment: 'TROP ' Serial specimen #1, #2 or #3: 1 Performed By: #### L 500.2500, L500.3400 #### [facility] [address] [place], [address] CO2 [Moles/Vol] 28.0 mmol/L Normal 21.0-32.0 [facility] Comment on above: Order Comment: 'TROP ' Serial specimen #1, #2 or #3: 1 Performed By: #### L 500.2500, L500.3400 #### [facility] [address] [place], [address] Creatinine [Mass/Vol] 0.72 mg/dL Normal 0.70-1.[address] [facility] Comment on above: Order Comment: 'TROP ' Serial specimen #1, #2 or #3: 1 Result Comment: The validity of the calculated GFR GFRAA in patients over 70 years has not been determined. Clinical correlation is essential. Performed By: #### L 500.2500, L500.3400 #### [facility] [address] [place], [address] ECRCL 64.64 ml/min Normal [facility] Comment on above: Order Comment: 'TROP ' Serial specimen #1, #2 or #3: 1 Performed By: #### L 500.2500, L500.3400 #### [facility] [address] [place], [address] EST GFR - AA 136 mL/min Normal >60 [facility] Comment on above: Order Comment: 'TROP ' Serial specimen #1, #2 or #3: 1 Result Comment: Afri can Slovak GFR Calc Performed By: #### L 500.2500, L500.3400 #### [facility] [address] [place], [address] GAP 6 Normal 5-15 [facility] Comment on above: Order Comment: 'TROP ' Serial specimen #1, #2 or #3: 1 Performed By: #### L 500.2500, L500.3400 #### [facility] [address] [place], [address] GFR/1.73 sq M.predicted among non-blacks MDRD (S/P/Bld) [Vol rate/Area] 113 mL/min/{1.73_m2} Normal >60 [facility] Comment on above: Order Comment: 'TROP ' Serial specimen #1, #2 or #3: 1 Result Comment: Non- GFR Calc Performed By: #### L 500.2500, L500.3400 #### [facility] [address] [place], [address] Glucose [Mass/Vol] 100 mg/dL Normal 74-106 [facility] Comment on above: Order Comment: 'TROP ' Serial specimen #1, #2 or #3: 1 Result Comment: Fast ing Glucose result from 100 to 125 mg/dL suggests IMPAIRED HOMEOSTASIS per A.D.A. criteria. Performed By: #### L 500.2500, L500.3400 #### [facility] [address] [place], [address] Potassium [Moles/Vol] 4.2 mmol/L Normal 3.5-5.[address] [facility] Comment on above: Order Comment: 'TROP ' Serial specimen #1, #2 or #3: 1 Performed By: #### L 500.2500, L500.3400 #### [facility] [address] [place], [address] Sodium [Moles/Vol] 132 mmol/L Low 136-145 [facility] Comment on above: Order Comment: 'TROP ' Serial specimen #1, #2 or #3: 1 Performed By: #### L 500.2500, L500.3400 #### [facility] [address] [place], [address] Urea nitrogen [Mass/Vol] 11 mg/dL Normal 7-18 [facility] Comment on above: Order Comment: 'TROP ' Serial specimen #1, #2 or #3: 1 Performed By: #### L 500.2500, L500.3400 #### [facility] [address] [place], [address] Basophil percentageOrdered B y: Amadou Wadsworth on 01-06-2024 Basophils/100 WBC (Bld) 0.4 % 0-1 [facility] Chloride [Moles/Vol] 98 mmol/L 98-107 [facility] Eosinophils/100 WBC (Bld) 0.7 % 0-5 [facility] Glucose [Mass/Vol] 100 mg/dL 74-106 [facility] Comment on above: Fasting Glucose resu lt from 100 to 125 mg/dL suggests IMPAIRED HOMEOSTASIS per A.D.A. criteria. Hemoglobin (Bld) [Mass/Vol] 14.5 g/dL 13.0-16.5 [facility] Monocytes/100 WBC (Bld) 7.5 % 0-10 [facility] Neutrophils (Bld) [#/Vol] 8.2 10*3/uL 2.0-7.7 [facility] Neutrophils/100 WBC (Bld) 82.9 % 47-70 [facility] Potassium [Moles/Vol] 4.2 mmol/L 3.5-5.[address] [facility] Sodium [Moles/Vol] 132 mmol/L 136-145 [facility] WBC (Bld) [#/Vol] 9.9 10*3/uL 4.4-11.0 [facility] CBC W/Diff, Automatedon 12-26 Absolute Lymph 0.77 X10 3/uL Low 0.83-4.51 [facility] Comment on above: Performed By: #### L 500.2500, L500.3400 #### [facility] [address] [place], [address] Absolute Neut 8.2 X10 3/uL High 2.0-7.7 [facility] Comment on above: Performed By: #### L 500.2500, L500.3400 #### [facility] [address] [place], [address] Basophils/100 WBC (Bld) 0.4 % Normal 0-1 [facility] Comment on above: Performed By: #### L 500.2500, L500.3400 #### [facility] [address] [place], [address] Eosinophils/100 WBC (Bld) 0.7 % Normal 0-5 [facility] Comment on above: Performed By: #### L 500.2500, L500.3400 #### [facility] [address] [place], [address] Erythrocyte distribution width (RBC) [Ratio] 13.7 % Normal 11.6-14.6 [facility] Comment on above: Performed By: #### L 500.2500, L500.3400 #### [facility] [address] [place], [address] Hematocrit (Bld) [Volume fraction] 45.0 % Normal 40-54 [facility] Comment on above: Performed By: #### L 500.2500, L500.3400 #### [facility] [address] [place], [address] Hemoglobin (Bld) [Mass/Vol] 14.5 g/dL Normal 13.0-16.5 [facility] Comment on above: Performed By: #### L 500.2500, L500.3400 #### [facility] [address] [place], [address] IG% 0.700 Normal 0.0-0.9 [facility] Comment on above: Result Comment: IG% - Immature Granulocytes (promyelocytes, myelocytes and metamyelocytes) > 1% indicates that a LEFT SHIFT is Present. Performed By: #### L 500.2500, L500.3400 #### [facility] [address] [place], [address] Lymphocytes/100 WBC (Bld) 7.8 % Low 19-41 [facility] Comment on above: Performed By: #### L 500.2500, L500.3400 #### [facility] [address] [place], [address] MCH (RBC) [Entitic mass] 31.9 pg Normal 27.0-32.0 [facility] Comment on above: Performed By: #### L 500.2500, L500.3400 #### [facility] [address] [place], [address] MCHC (RBC) [Mass/Vol] 32.2 g/dL Normal 32-[address] [facility] Comment on above: Performed By: #### L 500.2500, L500.3400 #### [facility] [address] [place], [address] MCV (RBC) [Entitic vol] 98.9 fL High 80-94 [facility] Comment on above: Performed By: #### L 500.2500, L500.3400 #### [facility] [address] [place], [address] Monocytes/100 WBC (Bld) 7.5 % Normal 0-10 [facility] Comment on above: Performed By: #### L 500.2500, L500.3400 #### [facility] [address] [place], [address] Neutrophils/100 WBC (Bld) 82.9 % High 47-70 [facility] Comment on above: Performed By: #### L 500.2500, L500.3400 #### [facility] [address] [place], [address] Nucleated RBC (Bld) [#/Vol] 0 10*3/uL Normal 0-5 [facility] Comment on above: Performed By: #### L 500.2500, L500.3400 #### [facility] [address] [place], [address] Platelet mean volume (Bld) [Entitic vol] 9.3 fL Normal 6.2-12.0 [facility] Comment on above: Performed By: #### L 500.2500, L500.3400 #### [facility] [address] [place], [address] Platelets (Bld) [#/Vol] 143 10*3/uL Low 150-450 [facility] Comment on above: Performed By: #### L 500.2500, L500.3400 #### [facility] [address] [place], [address] RBC (Bld) [#/Vol] 4.55 10*6/uL Low 4.6-6.2 [facility] Comment on above: Performed By: #### L 500.2500, L500.3400 #### [facility] [address] [place], [address] RDW SD 50.1 fl High 35.1-43.9 [facility] Comment on above: Performed By: #### L 500.2500, L500.3400 #### [facility] [address] [place], [address] WBC (Bld) [#/Vol] 9.9 10*3/uL Normal 4.4-11.0 [facility] Comment on above: Performed By: #### L 500.2500, L500.3400 #### [facility] [address] [place], [address] CNOVon 01-06-2024 CNOV Office Visit (UCTR ) -- DIMITRI PAINTER ([id number]) 1945 M Date Time Provider Department 01/06/24 2:00 PM SERENA BAUER [facility] During your visit today, we recorded the following information about you: Weight 58 kg Serena Bauer APRN.LAST GREASER 01/06/2024 2:04 PM Signed Patient came in with complaints of low oxygen saturation at home anywhere from the mid 70s to the low 90s. Patient has had a history of a pneumothorax. Patient does have a yellow tent to his skin that is a little more yellow than normal per caregiver. Patient's heart rate is bouncing in between 80s and 120s. Patient is being referred to the emergency room for full evaluation due to lack of testing. Patient's caregiver will take him now. Allergies As of Date: 01/06/2024 Noted Allergy Reaction ANESTHESIA S/I-40 (PROPOFOL) (PRO*09/13/2022 14 - Other: See Comments Comments: With use of anesthesia knocks him out, doesn't need much per . Date Reviewed: 12/21/2023 Reviewed by: Tatiana Earl MA - Fully Assessed Primary Visit Diagnosis:Low oxygen saturation [R79.81] Prescriptions as of 01/06/2024 - lovastatin 40 mg tablet Take 1 tablet by mouth daily at bedtime. - TRELEGY ELLIPTA 200-62.5-25 mcg inhalation powder USE 1 INHALATION BY MOUTH ONCE DAILY AT THE SAME TIME EACH DAY DIRECTED - fluticasone (FLONASE) 50 mcg/actuation nasal spray Use 1-2 Sprays in each nostril once daily. - albuterol HFA (PROAIR HFA) 90 mcg/actuation inhaler Inhale 2 Puffs by mouth every 4 hours as needed for wheezing/shortness of breath. Take as directed - OXYGEN, HOME THERAPY, 2 L/min by Nasal Cannula route continuous. - vit A,C,E-Yyzu-Drgdzf (PRESERVISION AREDS) 2,148 mcg-113 mg-45 mg-17.4mg tab Take 1 tablet by mouth twice daily. - aspirin, enteric coated (ASPIRIN, ENTERIC COATED) 81 mg EC tablet Take 81 mg by mouth once daily. Indications: prevention of transient ischemic attack - acetaminophen (TYLENOL) 500 mg tablet Take 2 tablets by mouth every 6 hours as needed for pain. Indications: pain - Propylene Glycol-Glycerin 1-0.3 % drop Use in both eyes. - TIMOLOL MALEATE OPHTHALMIC Use in eyes. Left eye Problem List As Of Date 01/06/2024 Noted Resolved Hyperlipidemia [E78.5] 06/22/2011 Hypertension [I10] 06/22/2011 12/08/2020 Basal cell carcinoma [C44.91] 07/09/2012 BPH (benign prostatic hyperplasia) [N40.0] 07/26/2012 11/17/2017 Elevated prostate specific antigen (PSA) [R97.2*07/26/2012 11/17/2017 Prostate cancer [C61] 08/09/2012 Lumbosacral pain [M54.50] 03/11/2013 Trochanteric bursitis [M70.60] 03/14/2013 11/17/2017 Pneumothorax [J93.9] 08/28/2022 Nicotine use disorder, F17.2 [F17.200] 08/28/2022 Severe protein-calorie malnutrition (HCC) [E43] 08/29/2022 12/21/2023 Encounter Status:Closed by REGINO BAUERINIQUE on 01/06/24 Normal [facility] Chest PA and Lateralon 01-05 Chest PA and Lateral [facility] Imaging Services [address] [place], [place] [address] Chest PA and Lateral MR#: [id number] Acct: [id number] Name: DIMITRI PAINTER Rep #: [id number] : 1945 M 78 From: Obinna Ross DO PCP: Dr. Otilia Lopez MD Status: REG ER Study: Chest PA and Lateral Date of Exam: 01/06/24 Exam# [id number] Ordering Dr: Amadou Wadsworth MD [id number] INDICATION: dyspnea EXAMINATION/TECHNIQUE: X-RAY - XR Chest 2 Views COMPARISON: FINDINGS: LINES/DEVICES: None. LUNGS: No consolidation, edema or effusion. Hyperaeration. Probable old blebs at the lung bases. No pneumothorax. MEDIASTINUM AND CARDIOVASCULAR STRUCTURES: Cardiac silhouette not enlarged. Central airways and mediastinal contour are unremarkable. BONES AND SOFT TISSUES: Degenerative vertebral changes. RAD/Chest PA and Lateral IMPRESSION: Hyperaeration. Electronically Signed: Obinna Ross DO at 16:04 EDT , CC: Dr. Amadou Wadsworth MD; Dr. Otilia Lopez MD Features Editor: Signed [facility] Determination of erythrocyte mean corpuscular volume (MCV)Ordered By: Amadou Wadsworth on 01-06-2024 MCV (RBC) [Entitic vol] 98.9 fL 80-94 [facility] Emergency Department Summary on 01-06-2024 Emergency Department Summary [facility] Medical Records Department [address] [place] [address] Emergency Department Summary 01/06/24 MR#: [id number] Acct: [id number] Name: DIMITRI PAINTER Rep #: [id number] : 1945 78 From: Amadou Wadsworth MD PCP: Dr. Otilia Lopez MD Status:REG ER Location: ED HPI History of Present Illness Chief Complaint: Shortness of Breath Informant: patient and family Onset/Context/Timing Onset: Days Context: gradual Timing: Continuous Current Severity: Mild Maximum Severity: Mild Worsened by: Nothing Relieved by: Nothing Associated Symptoms cough; Negative for fever or sore throat Chest Pain: Positive for None Narrative Narrative: 78-year-old male history of COPD and asthma. Prior pneumothorax a year and a half ago requiring a chest tube. States been more short of breath last several days. No chest pain. No history of DVT or PE. No hemoptysis. No leg pain or swelling. No recent hospitalization or surgery. He has had a nonproductive cough. Denies fever. Patient is on oxygen at home 2 L at night. He has been wearing it during the day now also. PE Risk Factors: Negative for Cancer, OCP + Smoking + > 35, Prior DVT or PE, Recent immobilization, Recent surgery or Recent travel Prior similar symptoms: Yes Recent Illness/Hospitalization: No PFSH PFSH Medical History Asthma exacerbation in COPD COPD (chronic obstructive pulmonary disease) Glaucoma High cholesterol Pneumothorax Prostate CA Home Medications artificial tears(hypromellose) 0.3 % eye drops 1 drp EACH EYE BID DRY EYE 08/25/22 [History Last Taken 01/06/24] aspirin 81 mg tablet,delayed release 81 mg PO DAILY HEART HEALTH 08/25/22 [History Last Taken 01/05/24] lovastatin 40 mg tablet 40 mg PO DAILY CHOLESTEROL 08/25/22 [History Last Taken 01/05/24] timolol maleate 0.5 % eye drops 1 drp EACH EYE BID GLUCOMA 08/25/22 [History Last Taken 01/05/24] acetaminophen 325 mg tablet (Tylenol) 1,000 mg PO Q6H PRN Pain 12/13/22 [History Last Taken Unknown] albuterol sulfate 90 mcg/actuation aerosol inhaler 2 puff inhalation Q6H PRN Dyspnea 12/13/22 [History Last Taken 01/05/24] docusate sodium 100 mg capsule (Colace) 100 mg PO DAILY 12/13/22 [History Last Taken 01/05/24] fluticasone fur. 200 mcg-umeclid 62.5 mcg-vilant 25 mcg inhalat.powder (Trelegy Ellipta) 1 inh inhalation DAILY 12/13/22 [History Last Taken 01/05/24] fluticasone propionate 50 mcg/actuation nasal spray,suspension 1 spray intranasal DAILY 12/13/22 [History Last Taken 01/05/24] guaifenesin 600 mg tablet, extended release 12 hr (Mucinex) 600 mg PO BID 12/13/22 [History Last Taken 01/05/24] azithromycin 250 mg tablet (Zithromax) 250 mg PO DAILY 4 days #4 tabs 01/06/24 [Rx Last Taken Unknown] prednisone 20 mg tablet 40 mg (2 x 20 mg) PO DAILY 7 days #14 tabs 01/06/24 [Rx Last Taken Unknown] Allergy/AdvReac Type Severity Reaction Status Date / Time No Known Allergies Allergy Verified 01/06/24 14:15 Family History Other COPD (chronic obstructive pulmonary disease) Heart disease Hypertension Surgical History H/O radical prostatectomy Social History Smoking Status: Former smoker ROS ROS ED ROS Narrative Nonproductive cough. Shortness of breath. No chest pain or fever. Review of Systems ROS Unobtainable: Denies due to encephalopathy Constitutional Constitutional ED: Denies chills or fever(s) Eyes Eyes: Denies blurry vision ENT ENT ED: Denies ear pain, rhinorrhea or sore throat Cardiovascular Cardiovascular: Denies chest pain, palpitations or racing heartbeat Respiratory/Chest Respiratory/Chest: Reports cough and dyspnea; Denies sputum Gastrointestinal Gastrointestinal: Denies abdominal pain, constipation, diarrhea, melena, nausea or vomiting Genitourinary Genitourinary ED: Denies dysuria or hematuria Musculoskeletal Musculoskeletal: Denies arthralgias, back pain, myalgias or neck pain Integumentary Denies abscess or Abrasions Neurologic Neurologic: Denies headache(s) Psychiatric Psychiatric: Denies anxiety Endocrine Endocrinology: Denies cold intolerance Hematologic/Lymphatic Hematologic/Lymphatic: Denies easy bleeding, easy bruising or lymphadenopathy Allergic/Immunologic Allergic/Immunologic ED: Denies mouth swelling, tongue swelling or urticaria EXAM Physical Exam Narrative Exam Narrative: 69-year-old male no acute distress vital signs stable afebrile. Pulse ox 94% on room air. Daughter at bedside. H EENT exam unremarkable. Mytrex membranes. Neck nontender no JVD. No lymphadenopathy. Lungs coarse breath sounds bilaterally with rhonchi. No rales. No excessive wheezing. Equal and sym (more content not included)... Normal [facility] Erythrocyte distribution wid th ratioOrdered By: Amadou Wadsworth on 01-06-2024 Erythrocyte distribution width (RBC) [Ratio] 13.7 % 11.6-14.6 [facility] Erythrocyte distribution wid th standard deviationOrdered By: Amadou Wadsworth on 01-06-2024 Erythrocyte distribution width (RBC) [Entitic vol] 50.1 fL 35.1-43.9 [facility] Hematocrit Auto (Bld) [Volum e fraction]Ordered By: Amadou Wadsworth on 01-06-2024 Hematocrit (Bld) [Volume fraction] 45.0 % 40-54 [facility] Immature granulocytes/100 WB C Auto (Bld)Ordered By: Amadou Wadsworth on 01-06-2024 Immature granulocytes/100 WBC (Bld) 0.700 % 0.0-0.9 [facility] Comment on above: IG% - Immature Granu locytes (promyelocytes, myelocytes and metamyelocytes) > 1% indicates that a LEFT SHIFT is Present. L501.4020on 01-06-2024 TROPONIN-I HS 6 pg/mL Normal 3.0-78.0 [facility] Comment on above: Order Comment: 'TROP ' Serial specimen #1, #2 or #3: 1 Result Comment: Plea se Note: New Test Units and Gender Specific Reference Ranges. For more information see Policy Stat Procedure [facility] High Sensitivity Troponin (TNIH) and attachments. Performed By: #### L 500.2500, L500.3400 #### [facility] Laboratory [address] [place], [address] Laboratory - Chemistry and C hemistry - challengeOrdered By: Amadou Wadsworth on 01-06-2024 CO2 [Moles/Vol] 28.0 mmol/L 21.0-32.0 [facility] Urea nitrogen/Creatinine [Mass ratio] 15.4 mg/mg 10-20 [facility] Laboratory - Hematology and Cell countsOrdered By: Amadou Wadsworth on 01-06-2024 MCH (RBC) [Entitic mass] 31.9 pg 27.0-32.0 [facility] MCHC (RBC) [Mass/Vol] 32.2 g/dL 32-[address] [facility] Nucleated RBC/100 WBC (Bld) [Ratio] 0 % 0-5 [facility] Platelet mean volume (Bld) [Entitic vol] 9.3 fL 6.2-12.0 [facility] Platelets (Bld) [#/Vol] 143 10*3/uL 150-450 [facility] Laboratory - Microbiology an d Antimicrobial susceptibilityOrdered By: Amadou Wadsworth on 01-06-2024 SARS-CoV-2 (COVID-19) RNA CLAUDIA+probe Ql (Unsp spec) [facility] M100.678on 01-06-2024 M100.678 SARS-CoV-2 (COVID 19 ) Negative INFLUENZA A Negative INFLUENZA B Negative RSV PCR Negative Normal [facility] Comment on above: Performed By: #### L 100.0500 #### [facility] Laboratory [address] [place], [place], [id number] No Panel InformationOrdered By: Amadou Wadsworth on 01-06-2024 Estimated Creatinine Clearance Calc 64.64 ml/min [facility] Estimated GFR (MDRD) Amer 136 mL/min >60 [facility] Comment on above: GFR Calc Estimated GFR (MDRD) Non-Af Amer 113 mL/min >60 [facility] Comment on above: Non- GFR Calc Troponin I High Sensitivity 6 pg/mL 3.0-78.0 [facility] Comment on above: Please Note: New Alicia t Units and Gender Specific Reference Ranges. For more information see Policy Stat Procedure [facility] High Sensitivity Troponin (TNIH) and attachments. RBC Auto (Bld) [#/Vol]Ordere d By: Amadou Wadsworth on 01-06-2024 RBC (Bld) [#/Vol] 4.55 10*6/uL 4.6-6.2 [facility] Serum or plasma calcium slade urement (mass/volume)Ordered By: Amadou Wadsworth on 01-06-2024 Calcium [Mass/Vol] 9.3 mg/dL 8.5-10.1 [facility] Serum or plasma creatinine m easurement (mass/volume)Ordered By: Amadou Wadsworth on 01-06-2024 Creatinine [Mass/Vol] 0.72 mg/dL 0.70-1.[address] [facility] Comment on above: The validity of the calculated GFR & GFRAA in patients over 70 years has not been determined. Clinical correlation is essential. Serum or plasma urea nitroge n measurement (mass/volume)Ordered By: Amadou Wadsworth on 01-06-2024 Urea nitrogen [Mass/Vol] 11 mg/dL 7-18 [facility] Thin prep Papanicolaou smear with manual screeningOrdered By: Amadou Wadsworth on 01-06-2024 Thin prep Papanicolaou smear with manual screening 6 5-15 [facility] CNPNon 01-05-2024 [facility] Telephone ([facility]) -- DIMITRI PAINTER ([id number]) 1945 M Date Time Provider Department 01/05/24 PATITO [facility] During your visit today, we recorded the following information about you: Thao Richardson 01/05/2024 8:24 AM Signed Oxygen therapy order signed and faxed back to [facility]. Thao Richardson Allergies As of Date: 01/05/2024 Noted Allergy Reaction ANESTHESIA S/I-40 (PROPOFOL) (PRO*09/13/2022 14 - Other: See Comments Comments: With use of anesthesia knocks him out, doesn't need much per . Date Reviewed: 12/21/2023 Reviewed by: Tatiana Earl MA - Fully Assessed Reason for Visit: FYI-No Action Needed [265] Prescriptions as of 01/05/2024 - lovastatin 40 mg tablet Take 1 tablet by mouth daily at bedtime. - TRELEGY ELLIPTA 200-62.5-25 mcg inhalation powder USE 1 INHALATION BY MOUTH ONCE DAILY AT THE SAME TIME EACH DAY DIRECTED - fluticasone (FLONASE) 50 mcg/actuation nasal spray Use 1-2 Sprays in each nostril once daily. - albuterol HFA (PROAIR HFA) 90 mcg/actuation inhaler Inhale 2 Puffs by mouth every 4 hours as needed for wheezing/shortness of breath. Take as directed - OXYGEN, HOME THERAPY, 2 L/min by Nasal Cannula route continuous. - vit A,C,E-Vobk-Vaynea (PRESERVISION AREDS) 2,148 mcg-113 mg-45 mg-17.4mg tab Take 1 tablet by mouth twice daily. - aspirin, enteric coated (ASPIRIN, ENTERIC COATED) 81 mg EC tablet Take 81 mg by mouth once daily. Indications: prevention of transient ischemic attack - acetaminophen (TYLENOL) 500 mg tablet Take 2 tablets by mouth every 6 hours as needed for pain. Indications: pain - Propylene Glycol-Glycerin 1-0.3 % drop Use in both eyes. - TIMOLOL MALEATE OPHTHALMIC Use in eyes. Left eye Problem List As Of Date 01/05/2024 Noted Resolved Hyperlipidemia [E78.5] 06/22/2011 Hypertension [I10] 06/22/2011 12/08/2020 Basal cell carcinoma [C44.91] 07/09/2012 BPH (benign prostatic hyperplasia) [N40.0] 07/26/2012 11/17/2017 Elevated prostate specific antigen (PSA) [R97.2*07/26/2012 11/17/2017 Prostate cancer [C61] 08/09/2012 Lumbosacral pain [M54.50] 03/11/2013 Trochanteric bursitis [M70.60] 03/14/2013 11/17/2017 Pneumothorax [J93.9] 08/28/2022 Nicotine use disorder, F17.2 [F17.200] 08/28/2022 Severe protein-calorie malnutrition (HCC) [E43] 08/29/2022 12/21/2023 Encounter Status:Closed by THAO RICHARDSON on 01/05/24 [facility] and Lateralon IMPRESSION: Extensive bilateral pulmonary emphysema with bullous disease in the left lower lung. Features Editor: PSCB Transcribe Date/Time: Mar 02 2023 4:36A Dictated by : LOCO RAMIREZ MD This examination was interpreted and the report reviewed and electronically signed by: LOCO RAMIREZ MD on Mar 02 2023 4:37AM [facility] DIVISION OF RADIOLOGY * * *Final Report* * * DATE OF EXAM: Mar 01 2023 2:55PM WOX [id number] - XR CHEST 2V FRONTAL/LAT / PROCEDURE REASON: Other pneumothorax * * * * Physician Interpretation * * * * EXAMINATION: CHEST RADIOGRAPH (2 VIEW FRONTAL & LATERAL) CLINICAL HISTORY: Other pneumothorax MQ: XC2_6 EXAM DATE/TIME: 03/01/2023 2:55 PM COMPARISON: 09/05/2022. RESULT: Lines, tubes, and devices: None. Lungs and pleura: Again identified is extensive bilateral pulmonary emphysema with bullous disease in the left lower lung. There has been resolution of the previously seen left pleural effusion. There has been resolution of the previously seen left pneumothorax. Cardiomediastinal silhouette: Normal cardiomediastinal silhouette. Bones and soft tissues: There has been resolution of the previously seen left chest wall subcutaneous emphysema. DIVISION OF RADIOLOGY Provider, [facility] - 03/02/2023 * * *Final Report* * * DATE OF EXAM: Mar 01 2023 2:55PM WOX 5291 - XR CHEST 2V FRONTAL/LAT / PROCEDURE REASON: Other pneumothorax * * * * Physician Interpretation * * * * EXAMINATION: CHEST RADIOGRAPH (2 VIEW FRONTAL & LATERAL) CLINICAL HISTORY: Other pneumothorax MQ: XC2_6 EXAM DATE/TIME: 03/01/2023 2:55 PM COMPARISON: 09/05/2022. RESULT: Lines, tubes, and devices: None. Lungs and pleura: Again identified is extensive bilateral pulmonary emphysema with bullous disease in the left lower lung. There has been resolution of the previously seen left pleural effusion. There has been resolution of the previously seen left pneumothorax. Cardiomediastinal silhouette: Normal cardiomediastinal silhouette. Bones and soft tissues: There has been resolution of the previously seen left chest wall subcutaneous emphysema. IMPRESSION IMPRESSION: Extensive bilateral pulmonary emphysema with bullous disease in the left lower lung. Features Editor: PSCB Transcribe Date/Time: Mar 02 2023 4:36A Dictated by : LOCO RAMIREZ MD This examination was interpreted and the report reviewed and electronically signed by: LOCO RAMIREZ MD on Mar 02 2023 4:37AM EST [facility] XR Chest PA and LateralOrder ed By: [facility] Provider on 03-02-2023 [facility] XR Chest PA and Lateralon Radiology Study observation (narrative) [facility] CT CHEST WO IVCONon 10-21-19 [facility] No Panel Informationon 10-21 [facility] SPIROMETRY WITH DILATOR IF O BSTRUCTEDon 10-21-2022 DLCO (ml/min/mmHg) 10.57 ml/min/mmHg [facility] DLCO/VA (ml/min/mmHg/L) 2.21 ml/min/mmHg/L [facility] ERV BOX (L) 0.94 L [facility] KDB63-77% POST (L/S) 0.36 L/S [facility] VCC82-37% PRE (L/S) 0.33 L/S [facility] FEV1 PRE (L) 0.99 L [facility] FEV1/FVC POST (%) 34 % [facility] FEV1/FVC PRE (%) 38 % [facility] FEV1_POST (L) 0.99 L [facility] FRC Box (L) 6.47 L [facility] FVC POST (L) 2.87 L [facility] FVC PRE (L) 2.60 L [facility] IC BOX (L) 1.16 L [facility] PEF POST (L/S) 2.23 L/S [facility] PEF PRE (L/S) 2.47 L/S [facility] RV Box (L) 5.51 L [facility] RV/TLC Box (%) 72 % [facility] TLC Box (L) 7.63 L [facility] VA (L) 4.79 L [facility] VC (L) BOX 2.12 L [facility] Laboratory - Microbiology an d Antimicrobial susceptibilityOrdered By: Dr. Escobar on 08-30-2022 Bacteria identified Cx Nom (Bld) No growth in 5 days. [facility] Bacteria identified Cx Nom (Bld) No growth in 5 days. [facility] Bacteria identified Respirat ory culture Nom (Unsp spec)Ordered By: Dr. Boles on 08-29-2022 Respiratory Culture Staphylococcus aureus [facility] Respiratory Culture Pasteurella multocida [facility] Absolute lymphocyte countOrd ered By: Dr. Boles on 08-26-2022 Lymphocytes Auto (Unsp spec) [#/Vol] 0.59 10*3/uL 0.83-4.51 [facility] Basophil percentageOrdered B y: Dr. Boles on 08-26-2022 Basophils/100 WBC (Bld) 0.0 % 0-1 [facility] Chloride [Moles/Vol] 100 mmol/L 98-107 [facility] Eosinophils/100 WBC (Bld) 0.0 % 0-5 [facility] Glucose [Mass/Vol] 119 mg/dL 74-106 [facility] Comment on above: Fasting Glucose resu lt from 100 to 125 mg/dL suggests IMPAIRED HOMEOSTASIS per A.D.A. criteria. Neutrophils (Bld) [#/Vol] 6.0 10*3/uL 2.0-7.7 [facility] Neutrophils/100 WBC (Bld) 87.2 % 47-70 [facility] Potassium [Moles/Vol] 4.6 mmol/L 3.5-5.[address] [facility] Sodium [Moles/Vol] 135 mmol/L 136-145 [facility] WBC (Bld) [#/Vol] 6.9 10*3/uL 4.4-11.0 [facility] Blood erythrocytes count (nu mber/volume)Ordered By: Dr. Boles on 08-26-2022 RBC (Bld) [#/Vol] 4.85 10*6/uL 4.6-6.2 [facility] Blood hemoglobin measurement (mass/volume)Ordered By: Dr. Boles on 08-26-2022 Hemoglobin (Bld) [Mass/Vol] 15.8 g/dL 13.0-16.5 [facility] Blood lymphocytes/100 leukoc ytesOrdered By: Dr. Boles on 08-26-2022 Lymphocytes/100 WBC (Bld) 8.6 % 19-41 [facility] Blood manual differential co mment interpretation (narrative result)Ordered By: Dr. Boles on 08-26-2022 Manual differential comment Robert (Bld) [Interp] SCANNED [facility] Blood monocytes/100 leukocyt esOrdered By: Dr. Boles on 08-26-2022 Monocytes/100 WBC (Bld) 3.5 % 0-10 [facility] Blood platelet mean volumeOr dered By: Dr. Boles on 08-26-2022 Platelet mean volume (Bld) [Entitic vol] 9.5 fL 6.2-12.0 [facility] Determination of erythrocyte mean corpuscular volume (MCV)Ordered By: Dr. Boles on 08-26-2022 MCV (RBC) [Entitic vol] 102.3 fL 80-94 [facility] Gram stain for investigation of transfusion reactionOrdered By: Dr. Boles on 08-26-2022 Microscopic observation Gram stain Nom (Unsp spec) [facility] Hematocrit Auto (Bld) [Volum e fraction]Ordered By: Dr. Boles on 08-26-2022 Hematocrit (Bld) [Volume fraction] 49.6 % 40-54 [facility] Laboratory - Chemistry and C hemistry - challengeOrdered By: Dr. Boles on 08-26-2022 CO2 [Moles/Vol] 33.0 mmol/L 21.0-32.0 [facility] Urea nitrogen/Creatinine [Mass ratio] 29.1 mg/mg 10-20 [facility] Laboratory - Hematology and Cell countsOrdered By: Dr. Boles on 08-26-2022 Erythrocyte distribution width (RBC) [Entitic vol] 50.8 fL 35.1-43.9 [facility] Erythrocyte distribution width (RBC) [Ratio] 13.2 % 11.6-14.6 [facility] Immature granulocytes/100 WBC (Bld) 0.700 % 0.0-0.9 [facility] Comment on above: IG% - Immature Granu locytes (promyelocytes, myelocytes and metamyelocytes) > 1% indicates that a LEFT SHIFT is Present. MCH (RBC) [Entitic mass] 32.6 pg 27.0-32.0 [facility] Nucleated RBC/100 WBC (Bld) [Ratio] 0 % 0-5 [facility] MCHC Auto (RBC) [Mass/Vol]Or dered By: Dr. Boles on 08-26-2022 MCHC (RBC) [Mass/Vol] 31.9 g/dL 32-[address] [facility] No Panel InformationOrdered By: Dr. Boles on 08-26-2022 Estimated Creatinine Clearance Calc 47.69 ml/min [facility] Estimated GFR (MDRD) Amer 136 mL/min >60 [facility] Comment on above: GFR Calc Estimated GFR (MDRD) Non-Af Amer 112 mL/min >60 [facility] Comment on above: Non- GFR Calc Platelets bldOrdered By: Dr. Boles on 08-26-2022 Platelets (Bld) [#/Vol] 122 10*3/uL 150-450 [facility] Serum or plasma calcium slade urement (mass/volume)Ordered By: Dr. Boles on 08-26-2022 Calcium [Mass/Vol] 8.8 mg/dL 8.5-10.1 [facility] Serum or plasma creatinine m easurement (mass/volume)Ordered By: Dr. Boles on 08-26-2022 Creatinine [Mass/Vol] 0.72 mg/dL 0.70-1.[address] [facility] Comment on above: The validity of the calculated GFR & GFRAA in patients over 70 years has not been determined. Clinical correlation is essential. Serum or plasma urea nitroge n measurement (mass/volume)Ordered By: Dr. Boles on 08-26-2022 Urea nitrogen [Mass/Vol] 21 mg/dL 7-18 [facility] Thin prep Papanicolaou smear with manual screeningOrdered By: Dr. Boles on 08-26-2022 Thin prep Papanicolaou smear with manual screening 2 5-15 [facility] Absolute lymphocyte counton 08-25-2022 Lymphocytes Auto (Unsp spec) [#/Vol] 0.73 10*3/uL 0.83-4.51 [facility] Work Phone: Basophil percentageon 2021 Basophils/100 WBC (Bld) 0.4 % 0-1 [facility] Work Phone: Chloride [Moles/Vol] 98 mmol/L 98-107 [facility] Work Phone: Eosinophils/100 WBC (Bld) 1.6 % 0-5 [facility] Work Phone: Glucose [Mass/Vol] 119 mg/dL 74-106 [facility] Work Phone: Comment on above: Fasting Glucose resu lt from 100 to 125 mg/dL suggests IMPAIRED HOMEOSTASIS per A.D.A. criteria. Neutrophils (Bld) [#/Vol] 6.9 10*3/uL 2.0-7.7 [facility] Work Phone: Neutrophils/100 WBC (Bld) 81.9 % 47-70 [facility] Work Phone: Potassium [Moles/Vol] 4.0 mmol/L 3.5-5.[address] [facility] Work Phone: Sodium [Moles/Vol] 137 mmol/L 136-145 [facility] Work Phone: WBC (Bld) [#/Vol] 8.4 10*3/uL 4.4-11.0 [facility] Work Phone: Basophil percentageOrdered B y: Dr. Escobar on 08-25-2022 Lactate [Moles/Vol] 1.9 mmol/L 0.4-2.0 [facility] Blood erythrocytes count (nu mber/volume)on 08-25-2022 RBC (Bld) [#/Vol] 4.95 10*6/uL 4.6-6.2 [facility] Work Phone: Blood hemoglobin measurement (mass/volume)on 08-25-2022 Hemoglobin (Bld) [Mass/Vol] 16.6 g/dL 13.0-16.5 [facility] Work Phone: Blood lymphocytes/100 leukoc yteson 08-25-2022 Lymphocytes/100 WBC (Bld) 8.7 % 19-41 [facility] Work Phone: Blood monocytes/100 leukocyt eson 08-25-2022 Monocytes/100 WBC (Bld) 7.0 % 0-10 [facility] Work Phone: [phone] Blood platelet mean volumeon 08-25-2022 Platelet mean volume (Bld) [Entitic vol] 9.5 fL 6.2-12.0 [facility] Work Phone: Determination of erythrocyte mean corpuscular volume (MCV)on 08-25-2022 MCV (RBC) [Entitic vol] 102.0 fL 80-94 [facility] Work Phone: Hematocrit Auto (Bld) [Volum e fraction]on 08-25-2022 Hematocrit (Bld) [Volume fraction] 50.5 % 40-54 [facility] Work Phone: Laboratory - Chemistry and C hemistry - challengeon 08-25-2022 CO2 [Moles/Vol] 32.0 mmol/L 21.0-32.0 [facility] Work Phone: Urea nitrogen/Creatinine [Mass ratio] 15.6 mg/mg 10-20 [facility] Work Phone: Laboratory - Chemistry and C hemistry - challengeOrdered By: Dr. Escobar on 08-25-2022 Natriuretic peptide B (Bld) [Mass/Vol] 45.3 pg/mL 0-100 [facility] Laboratory - Hematology and Cell countson 08-25-2022 Erythrocyte distribution width (RBC) [Entitic vol] 51.3 fL 35.1-43.9 [facility] Work Phone: Erythrocyte distribution width (RBC) [Ratio] 13.5 % 11.6-14.6 [facility] Work Phone: Immature granulocytes/100 WBC (Bld) 0.400 % 0.0-0.9 [facility] Work Phone: Comment on above: IG% - Immature Granu locytes (promyelocytes, myelocytes and metamyelocytes) > 1% indicates that a LEFT SHIFT is Present. MCH (RBC) [Entitic mass] 33.5 pg 27.0-32.0 [facility] Work Phone: Nucleated RBC/100 WBC (Bld) [Ratio] 0 % 0-5 [facility] Work Phone: MCHC Auto (RBC) [Mass/Vol]on 08-25-2022 MCHC (RBC) [Mass/Vol] 32.9 g/dL 32-[address] [facility] Work Phone: No Panel InformationOrdered By: Dr. Escobar on 08-25-2022 D-Dimer Quantitative (PE/DVT) 0.99 FEU/ug/m 0.27-0.49 [facility] Comment on above: D-Dimer ELEVATED (>0 .49): Additional studies and clinicalassessments are indicated to conclude diagnosis of:Deep Vein Thrombosis (DVT) or Pulmonary Embolism (PE)CRITICAL VALUE VERIFIED. CALLED TO [facility] ED08/25/22 [id number] Jina Harman.RESULTS READ BACK BY SAME . Troponin I High Sensitivity 11 pg/mL 3.0-78.0 [facility] Comment on above: Please Note: New Alicia t Units and Gender Specific Reference Ranges. For more information see Policy Stat Procedure [place] High Sensitivity Troponin (TNIH) and attachments. No Panel Informationon 08-25 Estimated Creatinine Clearance Calc 50.63 ml/min [facility] Work Phone: Estimated GFR (MDRD) Amer 139 mL/min >60 [facility] Work Phone: Comment on above: GFR Calc Estimated GFR (MDRD) Non-Af Amer 115 mL/min >60 [facility] Work Phone: Comment on above: Non- GFR Calc Platelets bldon 08-25-2022 Platelets (Bld) [#/Vol] 131 10*3/uL 150-450 [facility] Work Phone: Serum or plasma calcium slade urement (mass/volume)on 08-25-2022 Calcium [Mass/Vol] 9.3 mg/dL 8.5-10.1 [facility] Work Phone: Serum or plasma creatinine m easurement (mass/volume)on 08-25-2022 Creatinine [Mass/Vol] 0.71 mg/dL 0.70-1.30 [facility] Work Phone: Comment on above: The validity of the calculated GFR & GFRAA in patients over 70 years has not been determined. Clinical correlation is essential. Serum or plasma urea nitroge n measurement (mass/volume)on 08-25-2022 Urea nitrogen [Mass/Vol] 11 mg/dL 7-18 [facility] Work Phone: Thin prep Papanicolaou smear with manual screeningon 08-25-2022 Thin prep Papanicolaou smear with manual screening 7 5-15 [facility] Work Phone: Gram stain for investigation of transfusion reaction Microscopic observation Gram stain Nom (Unsp spec) [facility] Work Phone: Influenza virus A and B and SARS-CoV-2 (COVID-19) Ag panel - Upper respiratory specim SARS-CoV-2 (COVID-19) RNA CLAUDIA+probe Ql (Resp) [facility] Work Phone: Vital Signs Date Time Vital Sign Value Performing Clinician Facility 03-03-2025 15:05-0400 Body temperature 99.2 [degF] Dr. Otilia Lopez MD Work Phone: [facility] 03-03-2025 15:05-0400 Diastolic blood pressure 85 mm[Hg] Dr. Otilia Lopez MD Work Phone: [facility] 03-03-2025 15:05-0400 Heart rate 89 /min Dr. Otilia Lopez MD Work Phone: [facility] 03-03-2025 15:05-0400 Respiratory rate 21 /min Dr. Otilia Lopez MD Work Phone: [facility] 03-03-2025 15:05-0400 SaO2% (BldA) [Mass fraction] 100 % Dr. Otilia Lopez MD Work Phone: [facility] 03-03-2025 15:05-0400 Systolic blood pressure 126 mm[Hg] Dr. Otilia Lopez MD Work Phone: [phone] [place] [address] 03-03-2025 14:20-0400 Body mass index (BMI) [Ratio] 19.8 kg/m2 Dr. Otilia Lopez MD Work Phone: [facility] 03-03-2025 14:20-0400 Body weight 57.[address] Otilia Lopez MD Work Phone: [facility] 03-03-2025 11:22-0400 Body height 170.[address] Otilia Lopez MD Work Phone: [facility] 12-27-2024 12:50-0400 Body mass index (BMI) [Ratio] 21.63 kg/m2 Jens Candelaria ENGINEER SERGEANT.LAST GREASER Work Phone: [facility] 12-27-2024 12:50-0400 Body weight 57.15 kg Jens Candelaria ENGINEER SERGEANT.LAST GREASER Work Phone: [facility] 12-27-2024 12:50-0400 Diastolic blood pressure 89 mm[Hg] Jens Garcia ENGINEER SERGEANT.LAST GREASER Work Phone: [facility] 12-27-2024 12:50-0400 Heart rate 86 /min Jens Garcia ENGINEER SERGEANT.LAST GREASER Work Phone: [facility] 12-27-2024 12:50-0400 Respiratory rate 16 /min Jens Garcia ENGINEER SERGEANT.LAST GREASER Work Phone: [facility] 12-27-2024 12:50-0400 SaO2% (BldA) [Mass fraction] 97 % Jens Candelaria ENGINEER SERGEANT.LAST GREASER Work Phone: [facility] 12-27-2024 12:50-0400 Systolic blood pressure 136 mm[Hg] Jens Candelaria APRN.LAST GREASER Work Phone: [facility] 12-23-2024 13:43-0400 Body height 162.6 cm Sunny Olmos MD Work Phone: [facility] 12-23-2024 13:43-0400 Body mass index (BMI) [Ratio] 21.28 kg/m2 Sunny Olmos MD Work Phone: [facility] 12-23-2024 13:43-0400 Body weight 56.25 kg Sunny Olmos MD Work Phone: [facility] 12-23-2024 13:43-0400 Respiratory rate 14 /min Sunny Olmos MD Work Phone: [facility] 10-29-2024 15:14-0500 Body height 164.4 cm Patito Amaral MD Work Phone: [facility] 10-29-2024 15:14-0500 Body mass index (BMI) [Ratio] 20.46 kg/m2 Patito Amaral MD Work Phone: [facility] 10-29-2024 15:14-0500 Body temperature 98.29 [degF] Patito Amaral MD Work Phone: [facility] 10-29-2024 15:14-0500 Body weight 55.3 kg Patito Amaral MD Work Phone: [facility] 10-29-2024 15:14-0500 Diastolic blood pressure 77 mm[Hg] Patito Amaral MD Work Phone: [facility] 10-29-2024 15:14-0500 Heart rate 93 /min Patito Amaral MD Work Phone: [facility] 10-29-2024 15:14-0500 Respiratory rate 16 /min Patito Amaral MD Work Phone: [facility] 10-29-2024 15:14-0500 SaO2% (BldA) [Mass fraction] 96 % Patito Amaral MD Work Phone: [facility] 10-29-2024 15:14-0500 Systolic blood pressure 108 mm[Hg] Patito Amaral MD Work Phone: [facility] 10-28-2024 13:26-0500 Body mass index (BMI) [Ratio] 20.34 kg/m2 Otilia Lopez MD Work Phone: [facility] 10-28-2024 13:26-0500 Body weight 54.6 kg Otilia Lopez MD Work Phone: [facility] Comment on above: in wheel chair today 10-28-2024 13:26-0500 Diastolic blood pressure 70 mm[Hg] Otilia Lopez MD Work Phone: [facility] 10-28-2024 13:26-0500 Heart rate 80 /min Otilia Lopez MD Work Phone: [facility] 10-28-2024 13:26-0500 Respiratory rate 18 /min Otilia Lopez MD Work Phone: [facility] 10-28-2024 13:26-0500 Systolic blood pressure 116 mm[Hg] Otilia Lopez MD Work Phone: [facility] 10-17-2024 14:29-0500 Body temperature 98.9 [degF] Dr. Otilia Lopez MD Work Phone: [facility] 10-17-2024 14:29-0500 Diastolic blood pressure 82 mm[Hg] Dr. Otilia Lopez MD Work Phone: [facility] 10-17-2024 14:29-0500 Heart rate 97 /min Dr. Otilia Lopez MD Work Phone: [facility] 10-17-2024 14:29-0500 Respiratory rate 18 /min Dr. Otilia Lopez MD Work Phone: [facility] 10-17-2024 14:29-0500 SaO2% (BldA) [Mass fraction] 99 % Dr. Otilia Lopez MD Work Phone: [facility] 10-17-2024 14:29-0500 Systolic blood pressure 122 mm[Hg] Dr. Otilia Lopez MD Work Phone: [phone] [place] [address] 10-17-2024 03:08-0500 Inhaled oxygen flow rate 2 L/min Dr. Otilia Lopez MD Work Phone: [phone] [place] [address] 10-17-2024 02:16-0500 Body mass index (BMI) [Ratio] 19.4 kg/m2 Dr. Otilia oLpez MD Work Phone: [phone] [place] [address] 10-17-2024 02:16-0500 Body weight 56.[address] Otilia Lopez MD Work Phone: [facility] 10-16-2024 12:19-0500 Body height 170.[address] Otilia Lopez MD Work Phone: [facility] 06-27-2024 13:28-0400 Body height 163.8 cm Otilia Lopez MD Work Phone: [facility] 06-27-2024 13:28-0400 Body mass index (BMI) [Ratio] 21.12 kg/m2 Otilia Lopez MD Work Phone: [facility] 06-27-2024 13:28-0400 Body weight 56.7 kg Otilia Lopez MD Work Phone: [facility] 06-27-2024 13:28-0400 Diastolic blood pressure 70 mm[Hg] Otilia Lopez MD Work Phone: [facility] 06-27-2024 13:28-0400 Heart rate 80 /min Otilia Lopez MD Work Phone: [facility] 06-27-2024 13:28-0400 Respiratory rate 16 /min Otilia Lopez MD Work Phone: [facility] 06-27-2024 13:28-0400 Systolic blood pressure 110 mm[Hg] Otilia Lopez MD Work Phone: [facility] 05-09-2024 13:56-0400 Diastolic blood pressure 98 mm[Hg] Renetta Seabold ENGINEER SERGEANT.LAST GREASER Work Phone: [facility] 05-09-2024 13:56-0400 Systolic blood pressure 144 mm[Hg] Renetta Seabold ENGINEER SERGEANT.LAST GREASER Work Phone: [facility] 05-09-2024 13:04-0400 Body height 172.7 cm Renetta Seabold ENGINEER SERGEANT.LAST GREASER Work Phone: [facility] 05-09-2024 13:04-0400 Body mass index (BMI) [Ratio] 19.78 kg/m2 Renetta Seabold ENGINEER SERGEANT.LAST GREASER Work Phone: [facility] 05-09-2024 13:04-0400 Body temperature 97.2 [degF] Renetta Seabold ENGINEER SERGEANT.LAST GREASER Work Phone: [facility] 05-09-2024 13:04-0400 Body weight 59.01 kg Renetta Seabold ENGINEER SERGEANT.LAST GREASER Work Phone: [facility] 05-09-2024 13:04-0400 Heart rate 86 /min Renetta Seabold ENGINEER SERGEANT.LAST GREASER Work Phone: [facility] 05-09-2024 13:04-0400 Respiratory rate 15 /min Renetta Seabold ENGINEER SERGEANT.LAST GREASER Work Phone: [facility] 05-09-2024 13:04-0400 SaO2% (BldA) [Mass fraction] 97 % Renetta Seabold ENGINEER SERGEANT.LAST GREASER Work Phone: [facility] 01-25-2024 14:10-0400 Body mass index (BMI) [Ratio] 22.66 kg/m2 Otilia Lopez MD Work Phone: [facility] 01-25-2024 14:10-0400 Body weight 59.88 kg Otilia Lopez MD Work Phone: [facility] 01-25-2024 14:10-0400 Diastolic blood pressure 74 mm[Hg] Otilia Lopez MD Work Phone: [facility] 01-25-2024 14:10-0400 Heart rate 100 /min Otilia Lopez MD Work Phone: [facility] 01-25-2024 14:10-0400 Respiratory rate 16 /min Otilia Lopez MD Work Phone: [facility] 01-25-2024 14:10-0400 SaO2% (BldA) [Mass fraction] 100 % Otilia Lopez MD Work Phone: [facility] 01-25-2024 14:10-0400 Systolic blood pressure 120 mm[Hg] Otilia Lopez MD Work Phone: [facility] 01-06-2024 16:59-0400 Body temperature 98 [degF] [facility] 01-06-2024 16:59-0400 Diastolic blood pressure 70 mm[Hg] [facility] 01-06-2024 16:59-0400 Heart rate 112 /min [facility] 01-06-2024 16:59-0400 Respiratory rate 20 /min [facility] 01-06-2024 16:59-0400 SaO2% (BldA) [Mass fraction] 94 % [facility] 01-06-2024 16:59-0400 Systolic blood pressure 110 mm[Hg] [facility] 01-06-2024 16:13-0400 Inhaled oxygen flow rate 2 L/min [facility] 01-06-2024 14:13-0400 Body height 172.72 cm [facility] 01-06-2024 14:13-0400 Body mass index (BMI) [Ratio] 20.5 kg/m2 [facility] 01-06-2024 14:13-0400 Body weight 61.03 kg [facility] 01-06-2024 14:03-0400 Body mass index (BMI) [Ratio] 21.95 kg/m2 Serena Bauer APRN.CNP Work Phone: [facility] 01-06-2024 14:03-0400 Body weight 58 kg Serena Timothy CHAPA.LAST GREASER Work Phone: [facility] 12-21-2023 13:58-0400 Body mass index (BMI) [Ratio] 22.9 kg/m2 Otilia Lopez MD Work Phone: [facility] 12-21-2023 13:58-0400 Body weight 60.51 kg Otilia Lopez MD Work Phone: [facility] 12-21-2023 13:58-0400 Diastolic blood pressure 72 mm[Hg] Otilia Lopez MD Work Phone: [facility] 12-21-2023 13:58-0400 Heart rate 72 /min Otilia Lopez MD Work Phone: [facility] 12-21-2023 13:58-0400 Respiratory rate 18 /min Otilia Lopez MD Work Phone: [facility] 12-21-2023 13:58-0400 Systolic blood pressure 124 mm[Hg] Otilia Lopez MD Work Phone: [facility] 06-20-2023 13:54-0400 Body weight 59.78 kg Otilia Lopez MD Work Phone: [facility] 06-20-2023 13:54-0400 Diastolic blood pressure 70 mm[Hg] Otilia Lopez MD Work Phone: [facility] 06-20-2023 13:54-0400 Heart rate 84 /min Otilia Lopez MD Work Phone: [facility] 06-20-2023 13:54-0400 Respiratory rate 18 /min Otilia Lopez MD Work Phone: [facility] 06-20-2023 13:54-0400 Systolic blood pressure 92 mm[Hg] Otilia Lopez MD Work Phone: [facility] 03-28-2023 00:19-0400 Body mass index (BMI) [Ratio] 20.2 kg/m2 [facility] 03-28-2023 00:19-0400 Body weight 60.32 kg [facility] 03-10-2023 07:11-0400 Body height 172.72 cm [facility] 03-10-2023 07:11-0400 Body mass index (BMI) [Ratio] 20.2 kg/m2 [facility] 03-10-2023 07:11-0400 Body weight 60.32 kg [facility] 02-08-2023 07:06-0400 Body height 172.72 cm [facility] 02-08-2023 07:06-0400 Body weight 60.78 kg [facility] 01-09-2023 15:13-0400 Body height 172.72 cm [facility] 01-09-2023 15:13-0400 Body weight 60.78 kg [facility] 12-19-2022 13:10-0400 Body weight 60.87 kg Otilia Lopez MD Work Phone: [facility] 12-19-2022 13:10-0400 Diastolic blood pressure 74 mm[Hg] Otilia Lopez MD Work Phone: [facility] 12-19-2022 13:10-0400 Heart rate 84 /min Otilia Lopez MD Work Phone: [facility] 12-19-2022 13:10-0400 Respiratory rate 20 /min Otilia Lopez MD Work Phone: [facility] 12-19-2022 13:10-0400 Systolic blood pressure 100 mm[Hg] Otilia Lopez MD Work Phone: [facility] 12-13-2022 09:51-0400 Body height 172.[address] Otilia Lopez Work Phone: [facility] 12-13-2022 09:51-0400 Body mass index (BMI) [Ratio] 19.8 kg/m2 Dr. Otilia Lopez Work Phone: [facility] 12-13-2022 09:51-0400 Body weight 58.[address] Otilia Lopez Work Phone: [facility] 12-13-2022 08:51-0400 Body temperature 97.9 [degF] Dr. Otilia Lopez Work Phone: [facility] 12-13-2022 08:51-0400 Diastolic blood pressure 79 mm[Hg] Dr. Otilia Lopez Work Phone: [facility] 12-13-2022 08:51-0400 Heart rate 80 /min Dr. Otilia Lopez Work Phone: [facility] 12-13-2022 08:51-0400 Respiratory rate 16 /min Dr. Otilia Lopez Work Phone: [facility] 12-13-2022 08:51-0400 SaO2% (BldA) [Mass fraction] 94 % Dr. Otilia Lopez Work Phone: [facility] 12-13-2022 08:51-0400 Systolic blood pressure 129 mm[Hg] Dr. Otilia Lopez Work Phone: [facility] 11-21-2022 11:16-0400 Body height 172.7 cm Patito Amaral MD Work Phone: [facility] 11-21-2022 11:16-0400 Body temperature 97.81 [degF] Patito Amaral MD Work Phone: [facility] 11-21-2022 11:16-0400 Body weight 58.97 kg Patito Amaral MD Work Phone: [facility] 11-21-2022 11:16-0400 Diastolic blood pressure 79 mm[Hg] Patito Amaral MD Work Phone: [facility] 11-21-2022 11:16-0400 Heart rate 80 /min Patito Amaral MD Work Phone: [facility] 11-21-2022 11:16-0400 Respiratory rate 16 /min Patito Amaral MD Work Phone: [facility] 11-21-2022 11:16-0400 SaO2% (BldA) [Mass fraction] 94 % Patito Amaral MD Work Phone: [facility] 11-21-2022 11:16-0400 Systolic blood pressure 129 mm[Hg] Patito Amaral MD Work Phone: [facility] 11-01-2022 12:28-0500 Heart rate 108 /min Stephanie Walls RN Work Phone: [facility] 11-01-2022 12:28-0500 Respiratory rate 18 /min Stephanie Walls RN Work Phone: [facility] 11-01-2022 12:28-0500 SaO2% (BldA) [Mass fraction] 98 % Stephanie Walls RN Work Phone: [facility] 10-27-2022 10:00-0500 Heart rate 97 /min Griselda Lo PT Work Phone: [facility] 10-27-2022 10:00-0500 SaO2% (BldA) [Mass fraction] 89 % Griselda Lo PT Work Phone: [facility] 10-27-2022 09:30-0500 Respiratory rate 20 /min Griselda Lo PT Work Phone: [facility] 10-27-2022 09:20-0500 Body temperature 97.39 [degF] Griselda Lo PT Work Phone: [facility] 10-27-2022 09:20-0500 Diastolic blood pressure 70 mm[Hg] Griselda Lo PT Work Phone: [facility] 10-27-2022 09:20-0500 Systolic blood pressure 116 mm[Hg] Griselda Lo PT Work Phone: [facility] 10-25-2022 10:03-0500 Heart rate 77 /min Stephanie Walls RN Work Phone: [facility] 10-25-2022 10:03-0500 SaO2% (BldA) [Mass fraction] 96 % Stephanie Walls RN Work Phone: [facility] 10-24-2022 12:07-0500 Heart rate 91 /min Indira Raymundo PT Work Phone: [facility] 10-24-2022 12:07-0500 SaO2% (BldA) [Mass fraction] 97 % Indira Raymundo PT Work Phone: [facility] 10-24-2022 11:45-0500 Body temperature 97.81 [degF] Indira Raymundo PT Work Phone: [facility] 10-24-2022 11:45-0500 Diastolic blood pressure 70 mm[Hg] Indira Raymundo PT Work Phone: [facility] 10-24-2022 11:45-0500 Systolic blood pressure 115 mm[Hg] Indira Raymundo PT Work Phone: [facility] 10-20-2022 12:05-0500 Diastolic blood pressure 78 mm[Hg] Minerva Theo ZIPPER SETTER Work Phone: [facility] 10-20-2022 12:05-0500 Heart rate 93 /min Minerva Theo ZIPPER SETTER Work Phone: [facility] 10-20-2022 12:05-0500 SaO2% (BldA) [Mass fraction] 93 % Minerva Theo ZIPPER SETTER Work Phone: [facility] 10-20-2022 12:05-0500 Systolic blood pressure 124 mm[Hg] Minerva Theo ZIPPER SETTER Work Phone: [facility] 10-20-2022 11:13-0500 Body temperature 97.59 [degF] Minerva Theo ZIPPER SETTER Work Phone: [facility] 10-20-2022 11:13-0500 Body weight 57.42 kg Minerva Theo ZIPPER SETTER Work Phone: [facility] 10-20-2022 11:13-0500 Respiratory rate 20 /min Minerva Theo ZIPPER SETTER Work Phone: [facility] 10-19-2022 12:12-0500 Body temperature 97.39 [degF] Carito Brown RN Work Phone: [facility] 10-19-2022 12:12-0500 Body weight 57.06 kg Carito Brown RN Work Phone: [facility] 10-19-2022 12:12-0500 Diastolic blood pressure 76 mm[Hg] Carito Brown RN Work Phone: [facility] 10-19-2022 12:12-0500 Heart rate 94 /min Carito Brown RN Work Phone: [facility] 10-19-2022 12:12-0500 Respiratory rate 18 /min Carito Brown RN Work Phone: [facility] 10-19-2022 12:12-0500 SaO2% (BldA) [Mass fraction] 94 % Carito Brown RN Work Phone: [facility] 10-19-2022 12:12-0500 Systolic blood pressure 110 mm[Hg] Carito Brown RN Work Phone: [facility] 10-18-2022 13:09-0500 Heart rate 88 /min Minerva Theo ZIPPER SETTER Work Phone: [facility] 10-18-2022 13:09-0500 SaO2% (BldA) [Mass fraction] 95 % Minerva Theo ZIPPER SETTER Work Phone: [facility] 10-18-2022 12:14-0500 Body temperature 98.29 [degF] Minerva Theo ZIPPER SETTER Work Phone: [facility] 10-18-2022 12:14-0500 Diastolic blood pressure 68 mm[Hg] Minerva Theo ZIPPER SETTER Work Phone: [facility] 10-18-2022 12:14-0500 Respiratory rate 18 /min Minerva Theo ZIPPER SETTER Work Phone: [facility] 10-18-2022 12:14-0500 Systolic blood pressure 112 mm[Hg] Minerva Theo ZIPPER SETTER Work Phone: [facility] 10-14-2022 16:23-0500 Heart rate 77 /min Minerva Theo ZIPPER SETTER Work Phone: [facility] 10-14-2022 16:23-0500 SaO2% (BldA) [Mass fraction] 94 % Minerva Theo ZIPPER SETTER Work Phone: [facility] 10-14-2022 15:55-0500 Diastolic blood pressure 76 mm[Hg] Minerva Theo ZIPPER SETTER Work Phone: [facility] 10-14-2022 15:55-0500 Respiratory rate 18 /min Minerva Theo ZIPPER SETTER Work Phone: [facility] 10-14-2022 15:55-0500 Systolic blood pressure 114 mm[Hg] Minerva Theo ZIPPER SETTER Work Phone: [facility] 10-14-2022 13:57-0500 Body temperature 97.81 [degF] Gloria Most RN Work Phone: [facility] 10-14-2022 13:57-0500 Body weight 57.52 kg Gloria Most RN Work Phone: [facility] 10-14-2022 13:57-0500 Diastolic blood pressure 62 mm[Hg] Gloria Most RN Work Phone: [facility] 10-14-2022 13:57-0500 Heart rate 108 /min Gloria Most RN Work Phone: [facility] 10-14-2022 13:57-0500 Respiratory rate 20 /min Gloria Most RN Work Phone: [facility] 10-14-2022 13:57-0500 SaO2% (BldA) [Mass fraction] 94 % Gloria Most RN Work Phone: [facility] 10-14-2022 13:57-0500 Systolic blood pressure 102 mm[Hg] Gloria Most RN Work Phone: [facility] 10-12-2022 10:23-0500 Body weight 56.79 kg Minerva Theo ZIPPER SETTER Work Phone: [facility] 10-12-2022 10:23-0500 Heart rate 85 /min Minerva Theo ZIPPER SETTER Work Phone: [facility] 10-12-2022 10:23-0500 SaO2% (BldA) [Mass fraction] 95 % Minerva Theo ZIPPER SETTER Work Phone: [facility] 10-12-2022 10:09-0500 Body temperature 98.01 [degF] Minerva Theo ZIPPER SETTER Work Phone: [facility] 10-12-2022 10:09-0500 Diastolic blood pressure 74 mm[Hg] Minerva Theo ZIPPER SETTER Work Phone: [facility] 10-12-2022 10:09-0500 Respiratory rate 18 /min Minerva Theo ZIPPER SETTER Work Phone: [facility] 10-12-2022 10:09-0500 Systolic blood pressure 112 mm[Hg] Minerva Theo ZIPPER SETTER Work Phone: [facility] 10-06-2022 12:23-0500 Diastolic blood pressure 62 mm[Hg] Minerva Theo ZIPPER SETTER Work Phone: [facility] 10-06-2022 12:23-0500 Heart rate 97 /min Minerva Theo ZIPPER SETTER Work Phone: [facility] 10-06-2022 12:23-0500 SaO2% (BldA) [Mass fraction] 95 % Minerva Theo ZIPPER SETTER Work Phone: [facility] 10-06-2022 12:23-0500 Systolic blood pressure 110 mm[Hg] Minerva Theo ZIPPER SETTER Work Phone: [facility] 10-06-2022 11:45-0500 Body temperature 97.59 [degF] Minerva Theo ZIPPER SETTER Work Phone: [facility] 10-06-2022 11:45-0500 Body weight 55.93 kg Minerva Theo ZIPPER SETTER Work Phone: [facility] 10-06-2022 11:45-0500 Respiratory rate 18 /min Minerva Theo ZIPPER SETTER Work Phone: [facility] 10-04-2022 15:06-0500 Body temperature 98.1 [degF] Gloria Most RN Work Phone: [facility] 10-04-2022 15:06-0500 Body weight 54.7 kg Gloria Most RN Work Phone: [facility] 10-04-2022 15:06-0500 Diastolic blood pressure 62 mm[Hg] Gloria Most RN Work Phone: [facility] 10-04-2022 15:06-0500 Heart rate 88 /min Gloria Most RN Work Phone: [facility] 10-04-2022 15:06-0500 Respiratory rate 16 /min Gloria Most RN Work Phone: [facility] 10-04-2022 15:06-0500 SaO2% (BldA) [Mass fraction] 94 % Gloria Most RN Work Phone: [facility] 10-04-2022 15:06-0500 Systolic blood pressure 102 mm[Hg] Gloria Most RN Work Phone: [facility] 10-04-2022 13:26-0500 Heart rate 79 /min Minerva Theo ZIPPER SETTER Work Phone: [facility] 10-04-2022 13:26-0500 SaO2% (BldA) [Mass fraction] 99 % Minerva Theo ZIPPER SETTER Work Phone: [facility] 10-04-2022 12:35-0500 Diastolic blood pressure 76 mm[Hg] Minerva Theo ZIPPER SETTER Work Phone: [facility] 10-04-2022 12:35-0500 Respiratory rate 18 /min Minerva Theo ZIPPER SETTER Work Phone: [facility] 10-04-2022 12:35-0500 Systolic blood pressure 106 mm[Hg] Minerva Venegas ZIPPER SETTER Work Phone: [facility] 09-30-2022 09:23-0500 Body temperature 98.1 [degF] Griselda Lo PT Work Phone: [facility] 09-30-2022 09:23-0500 Diastolic blood pressure 80 mm[Hg] Griselda Lo PT Work Phone: [facility] 09-30-2022 09:23-0500 Heart rate 87 /min Griselda Lo PT Work Phone: [facility] 09-30-2022 09:23-0500 Respiratory rate 18 /min Griselda Lo PT Work Phone: [facility] 09-30-2022 09:23-0500 SaO2% (BldA) [Mass fraction] 96 % Griselda Lo PT Work Phone: [facility] 09-30-2022 09:23-0500 Systolic blood pressure 120 mm[Hg] Griselda Lo PT Work Phone: [facility] 09-28-2022 15:59-0500 Body height 172.7 cm Patito Amaral MD Work Phone: [facility] 09-28-2022 15:59-0500 Body temperature 98.2 [degF] Patito Amaral MD Work Phone: [facility] 09-28-2022 15:59-0500 Body weight 52.62 kg Patito Amaral MD Work Phone: [facility] 09-28-2022 15:59-0500 Diastolic blood pressure 74 mm[Hg] Patito Amaral MD Work Phone: [facility] 09-28-2022 15:59-0500 Heart rate 100 /min Patito Amaral MD Work Phone: [facility] 09-28-2022 15:59-0500 Respiratory rate 16 /min Patito Amaral MD Work Phone: [facility] 09-28-2022 15:59-0500 SaO2% (BldA) [Mass fraction] 88 % Patito Amaral MD Work Phone: [facility] 09-28-2022 15:59-0500 Systolic blood pressure 112 mm[Hg] Patito Amaral MD Work Phone: [facility] 09-27-2022 16:11-0500 Body temperature 98.1 [degF] Gloriamarina Beckham RN Work Phone: [facility] 09-27-2022 16:11-0500 Body weight 54.07 kg Gloria Beckham RN Work Phone: [facility] 09-27-2022 16:11-0500 Diastolic blood pressure 76 mm[Hg] Gloriamarina Beckham RN Work Phone: [facility] 09-27-2022 16:11-0500 Heart rate 84 /min Gloriamarina Beckham RN Work Phone: [facility] 09-27-2022 16:11-0500 Respiratory rate 20 /min Gloriamarina Beckham RN Work Phone: [facility] 09-27-2022 16:11-0500 SaO2% (BldA) [Mass fraction] 93 % Gloriamarina Beckham RN Work Phone: [facility] 09-27-2022 16:11-0500 Systolic blood pressure 124 mm[Hg] Gloriamarina Beckham RN Work Phone: [facility] 09-23-2022 12:37-0500 Heart rate 99 /min Minerva Theo ZIPPER SETTER Work Phone: [facility] 09-23-2022 12:37-0500 SaO2% (BldA) [Mass fraction] 94 % Minerva Theo ZIPPER SETTER Work Phone: [facility] 09-23-2022 12:06-0500 Body temperature 98.4 [degF] Minerva Theo ZIPPER SETTER Work Phone: [facility] 09-23-2022 12:06-0500 Diastolic blood pressure 86 mm[Hg] Minerva Theo ZIPPER SETTER Work Phone: [facility] 09-23-2022 12:06-0500 Respiratory rate 20 /min Minerva Theo ZIPPER SETTER Work Phone: [facility] 09-23-2022 12:06-0500 Systolic blood pressure 106 mm[Hg] Minerva Theo ZIPPER SETTER Work Phone: [facility] 09-20-2022 14:13-0500 Heart rate 104 /min Minerva Theo ZIPPER SETTER Work Phone: [facility] 09-20-2022 14:13-0500 SaO2% (BldA) [Mass fraction] 92 % Minerva Theo ZIPPER SETTER Work Phone: [facility] 09-20-2022 14:02-0500 Body temperature 98.4 [degF] Minerva Theo ZIPPER SETTER Work Phone: [facility] 09-20-2022 14:02-0500 Diastolic blood pressure 68 mm[Hg] Minerva Theo ZIPPER SETTER Work Phone: [facility] 09-20-2022 14:02-0500 Respiratory rate 18 /min Minerva Theo ZIPPER SETTER Work Phone: [facility] 09-20-2022 14:02-0500 Systolic blood pressure 110 mm[Hg] Minerva Theo ZIPPER SETTER Work Phone: [facility] 09-20-2022 12:07-0500 Body temperature 98.4 [degF] Gloria Most RN Work Phone: [facility] 09-20-2022 12:07-0500 Diastolic blood pressure 72 mm[Hg] Gloria Most RN Work Phone: [facility] 09-20-2022 12:07-0500 Heart rate 100 /min Gloria Most RN Work Phone: [facility] 09-20-2022 12:07-0500 Respiratory rate 20 /min Gloria Most RN Work Phone: [facility] 09-20-2022 12:07-0500 SaO2% (BldA) [Mass fraction] 92 % Gloria Beckham RN Work Phone: [facility] 09-20-2022 12:07-0500 Systolic blood pressure 102 mm[Hg] Gloria Beckham RN Work Phone: [facility] 09-16-2022 09:15-0500 Body temperature 97.5 [degF] Griselda Deluna-Sandoval PT Work Phone: [facility] 09-16-2022 09:15-0500 Diastolic blood pressure 74 mm[Hg] Griselda Armandoderman-Sandoval PT Work Phone: [facility] 09-16-2022 09:15-0500 Heart rate 81 /min Griselda Robertsderman-Sandoval PT Work Phone: [facility] 09-16-2022 09:15-0500 Respiratory rate 18 /min Griselda Halderzoë-Sandoval PT Work Phone: [facility] 09-16-2022 09:15-0500 SaO2% (BldA) [Mass fraction] 95 % Griselda Armandoderman-Sandoval PT Work Phone: [facility] 09-16-2022 09:15-0500 Systolic blood pressure 100 mm[Hg] Griselda Armandoderman-Sandoval PT Work Phone: [facility] 09-13-2022 14:45-0500 Body weight 54.34 kg Otilia Lopez MD Work Phone: [facility] 09-13-2022 14:45-0500 Diastolic blood pressure 80 mm[Hg] Otilia Lopez MD Work Phone: [facility] 09-13-2022 14:45-0500 Heart rate 92 /min Otilia Lopez MD Work Phone: [facility] 09-13-2022 14:45-0500 Respiratory rate 20 /min Otilia Lopez MD Work Phone: [facility] 09-13-2022 14:45-0500 SaO2% (BldA) [Mass fraction] 94 % Otilia Lopez MD Work Phone: [facility] 09-13-2022 14:45-0500 Systolic blood pressure 108 mm[Hg] Otilia Lopez MD Work Phone: [facility] 09-13-2022 10:49-0500 Diastolic blood pressure 56 mm[Hg] Griselda Robertsderman-Sandoval PT Work Phone: [facility] 09-13-2022 10:49-0500 Heart rate 89 /min Griselda Halderman-Sandoval PT Work Phone: [facility] 09-13-2022 10:49-0500 Respiratory rate 18 /min Griselda Halderman-Sandoval PT Work Phone: [facility] 09-13-2022 10:49-0500 SaO2% (BldA) [Mass fraction] 96 % Griselda Halderman-Sandoavl PT Work Phone: [facility] 09-13-2022 10:49-0500 Systolic blood pressure 98 mm[Hg] Griselda Halderman-Sandoval PT Work Phone: [facility] 09-13-2022 10:20-0500 Body temperature 98.2 [degF] Griselda Halderman-Sandoval PT Work Phone: [facility] 09-08-2022 15:39-0500 Body temperature 97.81 [degF] Lin Hart RN Work Phone: [facility] 09-08-2022 15:39-0500 Diastolic blood pressure 64 mm[Hg] Lin Hart RN Work Phone: [facility] 09-08-2022 15:39-0500 Heart rate 81 /min Lin Hart RN Work Phone: [facility] 09-08-2022 15:39-0500 Respiratory rate 16 /min Lin Hart RN Work Phone: [facility] 09-08-2022 15:39-0500 SaO2% (BldA) [Mass fraction] 97 % Lin Hart RN Work Phone: [facility] 09-08-2022 15:39-0500 Systolic blood pressure 118 mm[Hg] Lin Hart RN Work Phone: [facility] 08-27-2022 21:21-0500 Body temperature 98.8 [degF] Dr. Otilia Lopez Work Phone: [facility] 08-27-2022 21:21-0500 Diastolic blood pressure 77 mm[Hg] Dr. Otilia Lopez Work Phone: [facility] 08-27-2022 21:21-0500 Heart rate 83 /min Dr. Otilia Lopez Work Phone: [facility] 08-27-2022 21:21-0500 Inhaled oxygen flow rate 6 L/min Dr. Otilia Lopez Work Phone: [facility] 08-27-2022 21:21-0500 Respiratory rate 18 /min Dr. Otilia Lopez Work Phone: [facility] 08-27-2022 21:21-0500 SaO2% (BldA) [Mass fraction] 94 % Dr. Otilia Lopez Work Phone: [facility] 08-27-2022 21:21-0500 Systolic blood pressure 130 mm[Hg] Dr. Otilia Lopez Work Phone: [facility] 08-26-2022 11:28-0500 Body height 172.[address] Otilia Lopez Work Phone: [facility] Work Phone: 08-26-2022 11:28-0500 Body weight 55.[address] Otilia Lopez Work Phone: [facility] 08-25-2022 15:43-0500 Body mass index (BMI) [Ratio] 18.6 kg/m2 Dr. Otilia Lpoez Work Phone: [facility] 08-25-2022 14:25-0500 Diastolic blood pressure 81 mm[Hg] Dr. Otilia Lopez Work Phone: [facility] Work Phone: 08-25-2022 14:25-0500 Heart rate 89 /min Dr. Otilia Lopez Work Phone: [facility] Work Phone: 08-25-2022 14:25-0500 Inhaled oxygen flow rate 2 L/min Dr. Otilia Lopez Work Phone: [facility] Work Phone: 08-25-2022 14:25-0500 Respiratory rate 16 /min Dr. Otilia Lopez Work Phone: [facility] Work Phone: 08-25-2022 14:25-0500 Systolic blood pressure 105 mm[Hg] Dr. Otilia Lopez Work Phone: [facility] Work Phone: 08-25-2022 13:59-0500 Body temperature 69.8 [degF] Dr. Otilia Lopez Work Phone: [facility] Work Phone: 08-25-2022 13:59-0500 SaO2% (BldA) [Mass fraction] 96 % Dr. Otilia Lopez Work Phone: [facility] Work Phone: 08-25-2022 09:20-0500 Body height 172.[address] Otilia Lopez Work Phone: [facility] Work Phone: 08-25-2022 09:20-0500 Body mass index (BMI) [Ratio] 19.7 kg/m2 Dr. Otilia Lopez Work Phone: [facility] Work Phone: 08-25-2022 09:20-0500 Body weight 58.[address] Otilia Lopez Work Phone: [facility] Work Phone: Encounters Encounter Date Encounter Type Care Provider Facility Start: 03-03-2025 Evaluation and manag ement of inpatient Dr. Kate Castillo MD -Progressive Care Unit Work Phone: Start: 03-03-2025 Non-patient / Non-visit Dr. Kate franklin MD -[facility] Work Phone: Start: 12-27-2024 End: 12-27-2024 Office outpatient visit 25 minutes Jens Candelaria ENGINEER SERGEANT.LAST GREASER Work Phone: [facility] Comment on above: Mixed hyperlipidemia (Primary Dx); Pulmonary emphysema, unspecified emphysema type (HCC); Anemia, unspecified type; Left hip pain; Hyperlipidemia, unspecified hyperlipidemia type Start: 12-27-2024 End: 12-27-2024 ambulatory JENS CANDELARIA Facility:[facility] Start: 12-26-2024 End: 02-25-2025 Follow-up encounter Jens Candelaria ENGINEER SERGEANT.LAST GREASER Work Phone: [facility] Start: 12-25-2024 End: 12-25-2024 ambulatory OTILIA LOPEZ Facility:[facility] Start: 12-25-2024 Patient encounter procedure RENETTA CHERY [facility] Start: 12-24-2024 End: 12-26-2024 Orders Only Sunny Olmos MD Work Phone: [facility] Comment on above: Primary osteoarthrit is of left hip (Primary Dx) Medical Clearance Forms (Surgical nigel klaus) Start: 12-23-2024 End: 12-23-2024 Patient encounter procedure Sunny Olmos MD Work Phone: [facility] [employer] [facility] Comment on above: Primary osteoarthrit is of left hip (Primary Dx) Start: 12-23-2024 End: 12-23-2024 ambulatory KI COOK Facility:[facility] Start: 12-16-2024 End: 12-16-2024 Refill Otilia Lopez MD Work Phone: [facility] Comment on above: Refill Request Start: 11-13-2024 End: 11-13-2024 ambulatory KI COOK V Facility:[facility] Start: 11-13-2024 End: 11-13-2024 Patient encounter procedure Ki Cook DO Work Phone: [facility] Comment on above: Trochanteric bursiti s of left hip (Primary Dx); Left hip pain; Primary osteoarthritis of left hip Start: 10-29-2024 End: 10-29-2024 ambulatory PATITO AMARAL Facility:[facility] Start: 10-29-2024 End: 10-29-2024 Patient encounter procedure Patito Amaral MD Work Phone: Pul[facility] Medicine Comment on above: Pulmonary emphysema, unspecified emphysema type (HCC) (Primary Dx); Nocturnal hypoxia; History of pneumothorax; Former smoker; Chronic rhinitis Start: 10-29-2024 End: 10-29-2024 ambulatory RENETTA CHERY [facility] Comment on above: Spirometry Start: 10-29-2024 End: 10-29-2024 Patient encounter procedure [facility] [place] Work Phone: Pulmonary Medicine Start: 10-28-2024 End: 10-28-2024 Subsequent hospital visit by physician [facility] Work Phone: Radiology Comment on above: Left hip pain [M25.5 52] Start: 10-28-2024 End: 12-28-2024 Follow-up encounter Otilia Lopez MD Work Phone: [facility] Start: 10-28-2024 End: 10-28-2024 ambulatory OTILIA LOPEZ Facility:[facility] Start: 10-28-2024 End: 10-28-2024 Patient encounter procedure Otilia Lopez MD Work Phone: [facility] Comment on above: Left hip pain (Prima ry Dx); Anemia, unspecified type; Chronic hypoxemic respiratory failure (HCC); Pulmonary emphysema, unspecified emphysema type (HCC) Start: 10-25-2024 End: 10-25-2024 ambulatory Otilia Lopez MD Work Phone: [facility] Comment on above: CBC Start: 10-24-2024 End: 10-24-[address] Otilia Lopez MD Work Phone: [facility] Work Phone: Start: 10-24-2024 End: 10-24-[address] Blayne Trejo DO -Laboratory Work Phone: Start: 10-24-2024 End: 10-24-2024 Telephone encounter Otilia Lopez MD Work Phone: [facility] Comment on above: Patient Update Start: 10-24-2024 End: 10-24-2024 ambulatory [facility] Facility:[facility] Start: 10-23-2024 End: 10-24-2024 Telephone encounter Otilia Lopez MD Work Phone: [facility] Comment on above: PT plan of care Start: 10-22-2024 End: 10-22-2024 Telephone encounter Otilia Lopez MD Work Phone: [facility] Comment on above: Mcc Plan of Care Start: 10-18-2024 End: 10-18-2024 Telephone encounter Otilia Lopez MD Work Phone: [facility] [place] Comment on above: Orders (Follow HH) Start: 10-17-2024 Non-patient / Non-visit [facility]. Weldon [facility] Work Phone: Start: 10-16-2024 Non-patient / Non-visit [facility] Weldon [facility] Work Phone: Start: 10-16-2024 End: 10-16-2024 ambulatory Otilia [facility] Facility:[facility] Start: 10-16-2024 End: 10-16-2024 Non-patient / Non-visit Dr. David Muniz MD -[place] Work Phone: Start: 10-15-2024 Non-patient / Non-visit [facility]. Weldon [facility] Work Phone: Start: 10-14-2024 ambulatory Blayne Trejo Fac ility:[facility] Start: 10-14-2024 End: 10-17-2024 Evaluation and management of inpatient Kate Castillo Facility:[facility] Start: 10-14-2024 End: 10-14-2024 Telephone encounter Patito Amaral MD Work Phone: Pulmonary Medicine Comment on above: Appointment; Patient Question Start: 09-25-2024 End: 09-25-2024 Refill Otilia Lopez MD Work Phone: [facility] Comment on above: Refill Request Start: 08-23-2024 End: 08-23-2024 Telephone encounter Otilia Lopez MD Work Phone: Allergy Comment on above: Orders (Oxgen) Start: 08-19-2024 End: 08-20-2024 Refill Otilia Lopez MD Work Phone: [facility] Comment on above: Refill Request Start: 08-12-2024 End: 08-12-2024 ambulatory RENETTA CHERY Facility:[facility] Start: 08-12-2024 End: 08-12-2024 Subsequent hospital visit by physician [facility] ([facility]) Work Phone: Cat Scan Comment on above: Abnormal CT of the c hest [R93.89] Start: 08-08-2024 End: 08-08-2024 Refill Jens Canedlaria APRN.CNP Work Phone: [facility] Comment on above: Refill Request Start: 07-29-2024 End: 07-31-2024 Refill Patito Amaral MD Work Phone: Pulmonary Medicine Comment on above: Refill Request Start: 06-27-2024 End: 06-27-2024 ambulatory OTILIA LOPEZ Facility:[facility] Start: 06-27-2024 End: 06-27-2024 Patient encounter procedure Otilia Lopez MD Work Phone: [facility] Comment on above: Medicare annual well ness visit, initial (Primary Dx); Trochanteric bursitis of left hip; Hyperlipidemia, unspecified hyperlipidemia type; Need for vaccination; Prostate cancer (HCC) Start: 06-24-2024 End: 06-24-2024 ambulatory [facility] Facility:[facility] Start: 06-11-2024 End: 06-11-2024 Telephone encounter Renettasa Chery ENGINEER SERGEANT.LAST GREASER Work Phone: Pulmonary Medicine Start: 06-10-2024 End: 06-10-2024 Telephone encounter Renettasa Chery ENGINEER SERGEANT.LAST GREASER Work Phone: Pulmonary Medicine Comment on above: Orders; Results Start: 06-03-2024 End: 06-03-2024 ambulatory [facility] Facility:[facility] Start: 06-03-2024 End: 06-03-2024 Subsequent hospital visit by physician [facility] ([facility]) Work Phone: Cat Scan Comment on above: Pulmonary emphysema, unspecified emphysema type (HCC) [J43.9] Start: 05-29-2024 End: 05-29-2024 Telephone encounter Renetta Trevinomarycruz ENGINEER SERGEANT.LAST GREASER Work Phone: Pulmonary Medicine Start: 05-27-2024 End: 05-27-2024 ambulatory [facility] Facility:[facility] Start: 05-27-2024 End: 05-27-2024 Subsequent hospital visit by physician Xr [facility] Work Phone: Radiology Comment on above: Pulmonary emphysema, unspecified emphysema type (HCC) [J43.9] Start: 05-20-2024 End: 05-20-2024 Telephone encounter Renetta Dayne ENGINEER SERGEANT.LAST GREASER Work Phone: Pulmonary Medicine Comment on above: Covid Positive COVID positive home test Start: 05-09-2024 End: 05-09-2024 ambulatory [facility] Facility:[facility] Start: 05-09-2024 End: 05-09-2024 Patient encounter procedure Renetta Seabolorelei ENGINEER SERGEANT.LAST GREASER Work Phone: [facility] Medicine Comment on above: Pulmonary emphysema, unspecified emphysema type (HCC) (Primary Dx); Nocturnal hypoxia; History of pneumothorax; Chronic rhinitis; Need for pneumococcal 20-valent conjugate vaccination; Former smoker; Hypertension, unspecified type Start: 02-14-2024 Telephone encounter Otilia velázquez MD Work Phone: [facility] Comment on above: need new rx for champ gomes Start: 01-25-2024 End: 01-25-2024 [facility] Start: 01-25-2024 End: 01-25-2024 Patient encounter procedure Otilia Lopez MD Work Phone: [facility] Comment on above: Pulmonary emphysema, unspecified emphysema type (HCC) (Primary Dx) Start: 01-06-2024 End: 01-06-2024 Emergency department patient visit [facility] Work Phone: Start: 01-06-2024 End: 01-06-2024 [facility] Start: 01-06-2024 End: 01-06-2024 Patient encounter procedure Serena Bauer APRN.CNP Work Phone: [facility] Comment on above: Low oxygen saturatio n (Primary Dx) Start: 01-05-2024 Telephone encounter Patito shaw MD Work Phone: Pulmonary Medicine Comment on above: FYI-No Action Needed Start: 12-21-2023 End: 12-21-2023 Patient encounter procedure Otilia Lopez MD Work Phone: [facility] Comment on above: Mixed hyperlipidemia (Primary Dx); Essential hypertension; Pulmonary emphysema, unspecified emphysema type (HCC); Prostate cancer (HCC) Start: 11-09-2023 ambulatory Isabella Thorpe [facility] Comment on above: Population Health Na vigation Outreach ([employer] care gaps) Start: 11-06-2023 Telephone encounter Patito shaw MD Work Phone: Pulmonary Medicine Comment on above: Results (Nocturnal o ximetry) Start: 11-02-2023 End: 11-02-2023 ambulatory [facility] Work Phone: [facility] Start: 11-02-2023 End: 11-02-2023 Patient encounter procedure [facility] Work Phone: [facility] Start: 06-20-2023 End: 06-20-2023 Patient encounter procedure Otilia Lopez MD Work Phone: [facility] Comment on above: Mixed hyperlipidemia (Primary Dx); Essential hypertension; Pulmonary emphysema, unspecified emphysema type (HCC); Prostate cancer (HCC); Severe protein-calorie malnutrition (HCC); Need for influenza vaccination Start: 04-03-2023 End: 04-27-2023 ambulatory [facility] Work Phone: Start: 04-03-2023 End: 04-27-2023 Discharged Recurring [facility] Work Phone: Start: 03-27-2023 End: 03-27-2023 ambulatory [facility] Work Phone: Start: 03-27-2023 End: 03-27-2023 Discharged Recurring [facility] Work Phone: Start: 03-01-2023 End: 03-01-2023 Subsequent hospital visit by physician Xr [facility] Work Phone: Radiology Comment on above: Other pneumothorax [ J93.83] Start: 02-22-2023 End: 02-24-2023 ambulatory [facility] Work Phone: Start: 02-22-2023 End: 02-24-2023 Discharged Recurring [facility] Work Phone: Start: 01-18-2023 End: 01-25-2023 ambulatory [facility] Work Phone: Start: 01-18-2023 End: 01-25-2023 Discharged Recurring [facility] Start: 12-23-2022 End: 12-25-[address] Otilia Lopez Work Phone: [facility] Work Phone: Start: 12-23-2022 End: 12-25-[address] Otilia Lopez Work Phone: [facility] Start: 12-19-2022 End: 12-19-2022 Patient encounter procedure Otilia Lopez MD Work Phone: [facility] Comment on above: Mixed hyperlipidemia (Primary Dx); Pulmonary emphysema, unspecified emphysema type (HCC); Pneumothorax on left; Severe protein-calorie malnutrition (HCC); Prostate cancer (HCC) Start: 12-16-[address] Otilia Lopez Work Phone: [facility] Start: 12-13-2022 End: 12-13-[address] Otilia Lopez Work Phone: [facility] Work Phone: Start: 12-13-2022 End: 12-13-[address] Otilia Lopez Work Phone: [facility] Start: 11-29-2022 Orders Only Patito Amaral MD Work Phone: [facility] Comment on above: Centrilobular emphys keith (HCC) (Primary Dx) Start: 11-28-2022 ambulatory Patito Amaral MD Work Phone: Pulmonary Medicine Comment on above: Pulmonary Rehab Start: 11-21-2022 End: 11-21-2022 Patient encounter procedure Patito Amaral MD Work Phone: [facility] Medicine Comment on above: Chronic hypoxemic re spiratory failure (HCC) (Primary Dx); Pulmonary emphysema, unspecified emphysema type (HCC); Bullous emphysema (HCC); Other pneumothorax; Chronic rhinitis; Former tobacco use Start: 11-01-2022 End: 11-01-2022 Home visit Stephanie Walls RN Work Phone: [facility] Comment on above: SN WERNER CLEMENTE W VISIT Start: 10-31-2022 End: 10-31-2022 Home visit Ward Chacon RN Work Phone: [facility] Comment on above: CARE COORDINATION Start: 10-27-2022 End: 10-27-2022 Home visit Griselda Lo PT Work Phone: [facility] Comment on above: PT DISC DC W VISIT Start: 10-25-2022 Telephone encounter Stehpanie Walls RN Work Phone: [facility] Comment on above: Home Care (Pt expres s he has been having some allergy like symptoms, Would like to know if he can take Loratidine OTC?) Start: 10-25-2022 End: 10-25-2022 Home visit Stephanie Walls RN Work Phone: [facility] Comment on above: SN ROUTINE Start: 10-24-2022 End: 10-24-2022 Home visit Indira Raymundo PT Work Phone: [facility] Comment on above: PT ROUTINE Start: 10-21-2022 End: 10-21-2022 ambulatory [facility] Comment on above: COPD Start: 10-21-2022 End: 10-21-2022 Patient encounter procedure Pulm [facility]ct Lab [facility] Start: 10-21-2022 End: 10-21-2022 ambulatory [facility] Comment on above: Spirometry Start: 10-21-2022 End: 10-21-2022 Patient encounter procedure Pulm Fct Lab [facility] Start: 10-21-2022 End: 10-21-2022 Subsequent hospital visit by physician [facility] 1 (I-Stat) RADIO CT SCAN [facility] Comment on above: Other pneumothorax [ J93.83] Start: 10-20-2022 End: 10-20-2022 Home visit Minerva Venegas ZIPPER SETTER Work Phone: [facility] Comment on above: ZIPPER SETTER ROUTINE Start: 10-19-2022 End: 10-19-2022 Home visit Carito Brown RN Work Phone: [facility] Comment on above: SN ROUTINE Start: 10-18-2022 End: 10-18-2022 Home visit Minerva Venegas ZIPPER SETTER Work Phone: [facility] Comment on above: ZIPPER SETTER ROUTINE Start: 10-14-2022 End: 10-14-2022 Home visit Gloria Beckham RN Work Phone: [facility] Comment on above: SN ROUTINE ZIPPER SETTER ROUTINE Start: 10-12-2022 End: 10-12-2022 Home visit Minervaseble Valderramaion ZIPPER SETTER Work Phone: [facility] Comment on above: ZIPPER SETTER ROUTINE Start: 10-06-2022 End: 10-06-2022 Home visit Minervaseble Valderramaion ZIPPER SETTER Work Phone: [facility] Comment on above: ZIPPER SETTER ROUTINE Start: 10-04-2022 End: 10-04-2022 Home visit Minervaseble Venegas ZIPPER SETTER Work Phone: [facility] Comment on above: ZIPPER SETTER ROUTINE SN ROUTINE Start: 09-30-2022 End: 09-30-2022 Home visit Griselda Lo PT Work Phone: [facility] Comment on above: PT REASSESSMENT Start: 09-28-2022 End: 09-28-2022 Patient encounter procedure Patito Amaral MD Work Phone: Pulmonary Medicine Comment on above: Chronic hypoxemic re spiratory failure (HCC) (Primary Dx); Pulmonary emphysema, unspecified emphysema type (HCC); Bullous emphysema (HCC); Other pneumothorax; Former tobacco use Start: 09-27-2022 End: 09-27-2022 Home visit Gloria Beckham RN Work Phone: [facility] Comment on above: SN ROUTINE Start: 09-23-2022 End: 09-23-2022 Home visit Minerva Venegas ZIPPER SETTER Work Phone: [facility] Comment on above: ZIPPER SETTER ROUTINE Start: 09-20-2022 End: 09-20-2022 Home visit Gloria Beckham RN Work Phone: [facility] Comment on above: SN ROUTINE ZIPPER SETTER ROUTINE Start: 09-16-2022 End: 09-16-2022 Home visit Griselda Lo PT Work Phone: [facility] Comment on above: PT ROUTINE Start: 09-13-2022 End: 09-13-2022 Patient encounter procedure Otilia Lopez MD Work Phone: [facility] Comment on above: Hospital discharge f ollow-up (Primary Dx); Pneumothorax on left; Mixed hyperlipidemia; Essential hypertension; Weight loss; Tobacco use disorder; Severe protein-calorie malnutrition (HCC) Start: 09-13-2022 End: 09-13-2022 Home visit Griselda Lo PT Work Phone: [facility] Comment on above: PT EVAL Start: 09-08-2022 Telephone encounter Otilia velázquez MD Work Phone: [facility] Comment on above: Home Care Start: 09-08-2022 End: 09-08-2022 Home visit Lin Hart RN Work Phone: [facility] Comment on above: SN SOC Start: 09-07-2022 Patient Outreach Catia Eugene RN [employer] Comment on above: Transition Of Care ( TCM initial outreach - dc'd from [facility] 09/06/22) Home Care (SOC Sched uling) Start: 09-06-2022 Telephone encounter Sophia mohamud Work Phone: [facility] Comment on above: Home Care (Confirmat ion Call ) Start: 09-02-2022 Telephone encounter Ann Marie beltran LPN [facility] Comment on above: Home Care Start: 08-29-2022 Non-patient / Non-visit Dr. Wero Lopez Work Phone: [facility] Start: 08-27-2022 Non-patient / Non-visit Dr. Wero Lopez Work Phone: [facility] Start: 08-27-2022 End: 08-27-2022 Non-patient / Non-visit Dr. Otilia Lopez Work Phone: [facility] Start: 08-27-2022 Non-patient / Non-visit Dr. Wero Lopez Work Phone: [facility] Start: 08-26-2022 Non-patient / Non-visit Dr. Wero Lopez Work Phone: [facility] Start: 08-26-2022 Non-patient / Non-visit Dr. Wero Lopez Work Phone: [facility] Start: 08-25-2022 Non-patient / Non-visit Dr. Wero Lopez Work Phone: [facility] Start: 08-25-2022 Non-patient / Non-visit Dr. Wero Lopez Work Phone: [facility] Start: 08-25-2022 End: 08-27-2022 Evaluation and management of inpatient Dr. Otilia Lopez Work Phone: [facility] 3 Procedures Date Procedure Procedure Detail Performing Clinician Start: 03-03-2025 Measurement of occul t blood in stool specimen using immunoassay Dr. Otilia Lopez MD Work Phone: Start: 03-03-2025 Computed tomography of abdomen and pelvis with contrast Dr. Otilia Lopez MD Work Phone: Start: 11-13-2024 Arthrocentesis aspir &/inj major jt/bursa w/o us Ki Cook DO Work Phone: Start: 10-29-2024 Noninvasive ear/puls e oximetry multiple deter Renetta Seabold ENGINEER SERGEANT.LAST GREASER Work Phone: Start: 10-29-2024 Spmtry w/vc expirato ry chiara w/wo mxml vol vntj Renetta Seabold ENGINEER SERGEANT.LAST GREASER Work Phone: Start: 10-28-2024 Radex hip unilateral with pelvis 2-3 views Otilia Lopez MD Work Phone: Start: 10-16-[address] Otilia Lopez MD Work Phone: Start: 10-14-2024 Computed tomography of abdomen and pelvis with contrast Dr. Otilia Lopez MD Work Phone: Start: 05-27-2024 Radiologic exam ches t 2 views [facility] ENGINEER SERGEANT.LAST GREASER Work Phone: Start: 01-06-2024 Plain chest X-ray Start: 01-06-2024 SARS-CoV-2, Influenz a & RSV (PCR) Start: 12-21-2023 [facility].LAST GREASER Work Phone: Start: 11-02-2023 Noninvasive ear/puls e oximetry multiple deter Patito Amaral MD Work Phone: Start: 06-20-2023 INFLUENZA VACCINE, P RSV FREE, AGE 65+ YR, HIGH DOSE, QUADRIVALENT (FLUZONE HIGH-DOSE) Otilia Lopez MD Work Phone: Start: 03-01-2023 Radiologic exam ches t 2 views Patito Amaral MD Work Phone: Start: 10-21-2022 Brncdilat rspse spmt ry pre&post-brncdilat admn Patito Amaral MD Work Phone: Start: 10-21-2022 Ct thorax w/o contra st material Patito Amaral MD Work Phone: Start: 08-27-2022 Plain chest X-ray Dr. Denver Lopez Work Phone: Start: 08-27-2022 Plain chest X-ray Dr. Denver Lopez Work Phone: Start: 08-26-2022 Plain chest X-ray Dr. Denver Lopez Work Phone: Start: 08-26-2022 Plain chest X-ray Dr. Denver Lopez Work Phone: Start: 08-25-2022 Plain chest X-ray Dr. Denver Lopez Work Phone: Start: 08-25-2022 Radiographic procedu re of chest Dr. Otilia Lopez Work Phone: Start: 08-25-2022 CT angiography of ch est with contrast Dr. Otilia Lopez Work Phone: Start: 08-25-2022 Plain chest X-ray Dr. Denver Lopez Work Phone: Bacteria identified in Blood by Culture Dr. Otilia Lopez Work Phone: Investigation of transfusion reaction Dr. Otilia Lopez Work Phone: Investigation of transfusion reaction Dr. Otilia Lopez Work Phone: Respiratory microbia l culture Dr. Otilia Lopez Work Phone: SARS-CoV-2 & FLU Ant igen (Rapid) Dr. Otilia Lopez Work Phone: Plan of Treatment Date Care Activity Detail Author Start: 12-26-2027 [facility] Start[facility] 06-24-2027 [facility] Start: 12-17-2026 [facility] Start: 06-15-2026 [facility] Start: 12-27-2025 Annual PCP Team Human Service Specialist lorenzo Disease Visit Annual PCP Team Chronic Disease Visit [facility] Start: 12-27-2025 Covid-19 Vaccine ( season) Covid-19 Vaccine ( season) [facility] Comment on above: Postponed from 04/28 (Declined at this time) Start: 12-09-2025 DIABETES SCREEN DIABETES SCREEN [facility] Start: 10-28-2025 Annual PCP Team Human Service Specialist lorenzo Disease Visit Annual PCP Team Chronic Disease Visit [facility] Start: 08-31-2025 DIABETES SCREEN DIABETES SCREEN [facility] Start: 06-27-2025 Annual PCP Team Human Service Specialist lorenzo Disease Visit Annual PCP Team Chronic Disease Visit [facility] Start: 05-02-2025 End: 05-02-2025 Patient encounter procedure 05/02/2025 3:00 PM EDT Office Visit Pulmonary Medicine [address] [place] [address] Patito Amaral MD [address] [place] [address] 6 month Pulmonary Medicine Comment on above: 6 month Start: 04-21-2025 End: 04-21-2025 ambulatory 04/21/2025 10:00 AM EDT OT/PT/Speech Visit [facility] [address] [place] [address] Hernan Guerra, PT [address] [place], [place] [address] POST OP/Total Joint Rehab LT JUANA [facility] Comment on above: POST OP/Total Joint Rehab LT JUANA Start: 04-18-2025 End: 04-18-2025 Patient encounter procedure 04/18/2025 1:15 PM EDT Office Visit ORTH [facility] [address] [place] [address] Sunny Olmos MD [address] [place] [phone] PO-LT JUANA [facility]TH [facility] Comment on above: PO-LT JUANA Start: 04-02-2025 End: 04-02-2025 Admission to same day surgery center 04/02/2025 2:20 PM EDT - 04/02/2025 4:55 PM EDT Surgery [facility] [address] [place] [address] Sunny Olmos MD [address] [place] [address] ARTHROPLASTY ACETABULAR AND PROX FEM PROSTH TOTAL HIP ANTERIOR APPROACH W/W/O AUTOGRAFT- left anterior total hip arthroplasty [facility] Comment on above: ARTHROPLASTY ACETABU LAR AND PROX FEM PROSTH TOTAL HIP ANTERIOR APPROACH W/W/O AUTOGRAFT- left anterior total hip arthroplasty Start: 04-02-2025 End: 04-02-2025 Arthrp acetblr/prox fem prostc agrft/algrft ARTHROPLASTY ACETABULAR AND PROX FEM PROSTH TOTAL HIP ANTERIOR APPROACH W/W/O AUTOGRAFT Primary osteoarthritis of left hip 04/02/2025 2:20 PM EDT [facility] Start: 04-02-2025 Subsequent hospital visit by physician 04/02/2025 2:20 PM EDT Hospital Encounter [facility] [address] [place] [address] Sunny Olmos MD [address] [place], [place] [id number] Primary osteoarthritis of left hip [M16.12] [facility] Comment on above: Primary osteoarthrit is of left hip [M16.12] Start: 04-02-2025 End: 04-02-2025 Admission to same day surgery center 04/02/2025 9:30 AM EDT - 04/02/2025 11:30 AM EDT Surgery [facility] [address] [facility] [place] [address] Sunny Olmos MD [address] [place] [address] ARTHROPLASTY ACETABULAR AND PROX FEM PROSTH TOTAL HIP ANTERIOR APPROACH W/W/O AUTOGRAFT- left anterior total hip arthroplasty [facility] Comment on above: ARTHROPLASTY ACETABU LAR AND PROX FEM PROSTH TOTAL HIP ANTERIOR APPROACH W/W/O AUTOGRAFT- left anterior total hip arthroplasty Start: 04-02-2025 End: 04-02-2025 Arthrp acetblr/prox fem prostc agrft/algrft ARTHROPLASTY ACETABULAR AND PROX FEM PROSTH TOTAL HIP ANTERIOR APPROACH W/W/O AUTOGRAFT Primary osteoarthritis of left hip 04/02/2025 9:30 AM EDT MR OR Start: 04-02-2025 Subsequent hospital visit by physician 04/02/2025 9:30 AM EDT Hospital Encounter [facility] [address] [facility] [place] [address] Sunny Olmos MD [address] [place] [address] Primary osteoarthritis of left hip [M16.12] [facility] Comment on above: Primary osteoarthrit is of left hip [M16.12] Start: 03-19-2025 End: 03-19-2025 ambulatory 03/19/2025 9:20 AM EDT PAT Pre Surgical Testing [address] [place] [address] left anterior total hip arthroplasty Pre Surgical Testing Comment on above: left anterior total hip arthroplasty Start: 03-11-2025 End: 03-11-2025 Patient encounter procedure 03/11/2025 3:20 PM EDT Office Visit Pulmonary Medicine [address] [place] [address] Patito Amaral MD [address] [place], [place] [id number] surgery clearance for a hip replacement Pulmonary Medicine Comment on above: surgery clearance fo r a hip replacement Start: 03-07-2025 End: 03-07-2025 Patient encounter procedure 03/07/2025 11:00 AM EDT Office Visit Family [facility] [address] [place] [address] Jens Candelaria APRN.LAST GREASER [address] [place] [address] Pre op clearance [facility] Comment on above: Pre op clearance Start: 03-04-2025 End: 03-04-2025 Patient encounter procedure 03/04/2025 3:00 PM EDT Office Visit [facility] [address] [place] [address] Otilia Lopez MD [address] [place] [address] Pre op clearance [facility] Comment on above: Pre op clearance Start: 03-03-2025 Verification routine [facility] Start: 03-03-2025 Admission procedure [facility] Start: 03-03-2025 Hospital admission, emergency, from emergency room, medical nature [facility] Start: 03-03-2025 Administration of bl ood product [facility] Start: 03-03-2025 End: 03-03-2025 ambulatory 03/03/2025 10:00 AM EDT OT/PT/Speech Visit [facility] [address] [place] [address] Hernan Guerra, PT [address] [place] [id number] PreOperative/Prehab LT HIP [facility] Comment on above: PreOperative/Prehab LT HIP Start: 02-25-2025 End: 05-27-2025 Basic metabolic 2000 panel - Serum or Plasma BASIC METABOLIC PANEL Lab Routine Primary osteoarthritis of left hip Expected: 02/25/2025 (Approximate), Expires: 05/27/2025 [facility] Comment on above: Expected: 02/25/2025 (Approximate), Expires: 05/27/2025 Start: 02-25-2025 End: 05-27-2025 CBC panel - Blood by Automated count COMPLETE BLOOD COUNT Lab Routine Primary osteoarthritis of left hip Expected: 02/25/2025 (Approximate), Expires: 05/27/2025 [facility] Comment on above: Expected: 02/25/2025 (Approximate), Expires: 05/27/2025 Start: 02-25-2025 H&P for surgery H&P FOR SURGER Y Procedures Routine Primary osteoarthritis of left hip Expected: 02/25/2025 (Approximate) [facility] Work Phone: Comment on above: Expected: 02/25/2025 (Approximate) Start: 02-25-2025 End: 05-27-2025 PT panel - Platelet poor plasma by Coagulation assay PROTHROMBIN TIME Lab Routine Primary osteoarthritis of left hip Expected: 02/25/2025 (Approximate), Expires: 05/27/2025 [facility] Comment on above: Expected: 02/25/2025 (Approximate), Expires: 05/27/2025 Start: 01-24-2025 Annual PCP Team Human Service Specialist lorenzo Disease Visit Annual PCP Team Chronic Disease Visit [facility] Start: 12-27-2024 End: 12-27-2024 Patient encounter procedure 12/27/2024 1:00 PM EDT Office Visit [facility] [place] [address] [place] [address] Jens Candelaria, ENGINEER SERGEANT.LAST GREASER [address] [place] [address] 6 month follow up lipid [facility] [place] Comment on above: 6 month follow up li pid Start: 12-25-2024 End: 03-26-2025 CBC panel - Blood by Automated count COMPLETE BLOOD COUNT Lab Routine Anemia, unspecified type Expected: 12/25/2024 (Approximate), Expires: 03/26/2025 [facility] Work Phone: Comment on above: Expected: 12/25/2024 (Approximate), Expires: 03/26/2025 Start: 12-25-2024 End: 03-26-2025 Comprehensive metabolic 2000 panel - Serum or Plasma COMPREHENSIVE METABOLIC PANEL Lab Routine Medicare annual wellness visit, initial Hyperlipidemia, unspecified hyperlipidemia type Expected: 12/25/2024 (Approximate), Expires: 03/26/2025 [facility] Comment on above: Expected: 12/25/2024 (Approximate), Expires: 03/26/2025 Start: 12-25-2024 End: 03-26-2025 Lipid 1996 panel - Serum or Plasma LIPID PANEL BASIC Lab Routine Medicare annual wellness visit, initial Hyperlipidemia, unspecified hyperlipidemia type Expected: 12/25/2024 (Approximate), Expires: 03/26/2025 [facility] Work Phone: Comment on above: Expected: 12/25/2024 (Approximate), Expires: 03/26/2025 Start: 12-25-2024 End: 03-26-2025 Prostate specific Ag [Mass/volume] in Serum or Plasma PROSTATE-SPECIFIC ANTIGEN DIAGNOSTIC Lab Routine Prostate cancer (HCC) Expected: 12/25/2024 (Approximate), Expires: 03/26/2025 [facility] Comment on above: Expected: 12/25/2024 (Approximate), Expires: 03/26/2025 Start: 12-23-2024 End: 12-23-2024 Patient encounter procedure 12/23/2024 2:00 PM EDT Office Visit [facility] [address] [place] [address] Sunny Olmos MD [address] [address] left hip total replacement [facility] Comment on above: left hip total repla cement Start: 12-20-2024 Annual PCP Team Human Service Specialist lorenzo Disease Visit Annual PCP Team Chronic Disease Visit [facility] Start: 12-20-2024 Anxiety Screening Anxiety Screening [facility] Start: 12-20-2024 Depression Screening Depression Scre ening [facility] Start: 11-13-2024 End: 11-13-2024 Patient encounter procedure 11/13/2024 1:00 PM EDT Office Visit [facility] [place] [address] [place] [address] Ki Cook V, DO [address] [place], [place] [id number] Left hip pain [M25.552] [facility] [place] Comment on above: Left hip pain [M25.5 52] Start: 10-29-2024 End: 10-29-2024 Patient encounter procedure Pulmonary Medicine Comment on above: 6 month follow up ?NONE//6 month follo w up Start: 10-29-2024 End: 10-29-2024 ambulatory Pulmonary Medicine Comment on above: pfts Start: 10-28-2024 End: 10-28-2024 Patient encounter procedure 10/28/2024 1:20 PM EST Office Visit [facility] [address] [place] [address] Otilia Lopez MD [address] [place] [address] left hip pain reevaluation [facility] [place] Comment on above: left hip pain reeval uation Start: 10-17-[address] [facility] Start: 10-16-2024 Referral to service [facility] Start: 10-16-2024 Inhalation therapy procedure [facility] Start: 10-15-2024 Patient referral to dietitian [facility] Start: 10-15-2024 Administration of bl ood product [facility] Start: 10-14-2024 Application of intermittent pneumatic compression device [facility] Start: 10-14-2024 Following clinical pathway protocol [facility] Start: 10-14-2024 Assessment of risk o f venous thromboembolism [facility] Start: 10-14-2024 Consultation [facility] Start: 10-14-2024 Insertion of cathete r into peripheral vein [facility] Start: 10-14-2024 Measuring intake and output [facility] Start: 10-14-2024 Oxygen therapy [facility] Start: 10-14-2024 Providing care accor ding to standard [facility] Start: 10-14-2024 Referral to occupati onal therapist [facility] Start: 10-14-2024 Referral to service [facility] Start: 10-14-2024 Vital signs measurements [facility] Start: 10-14-2024 [facility] Start: 10-14-2024 Admission procedure [facility] Start: 10-14-2024 Administration of bl ood product [facility] Start: 08-28-2024 Advance Directive Discussion Advance Directive Discussion [facility] Start: 08-28-2024 Medicare Advantage A nnual Wellness Visit Medicare Advantage Annual Wellness Visit [facility] Start: 08-12-2024 End: 08-12-2024 Patient encounter procedure 08/12/2024 3:40 PM EST Appointment Cat Scan [address] [place] [address] of the chest [R93.89] Cat Scan Comment on above: Abnormal CT of the c hest [R93.89] Start: 08-02-2024 End: 07-10-2025 CT Chest WO contrast [facility] Ab[facility] CT of the chest Expected: 08/02/2024, Expires: 07/10/2025 [facility] Work Phone: Comment on above: Expected: 08/02/2024 , Expires: 07/10/2025 Start: 06-27-2024 End: 06-27-2024 Patient encounter procedure Family [facility] Comment on above: 6 mo f/u ANNUAL MEDICARE [employer]LL NESS Start: 06-25-2024 End: 06-25-2024 Patient encounter procedure 06/25/2024 2:00 PM EDT Office Visit [facility] [place] [address] [place] [address] Otilia Lopez MD [address] [place] [id number] 6 mo f/u [facility] [place] Comment on above: 6 mo f/u Start: 06-21-2024 End: 09-20-2024 Comprehensive metabolic 2000 panel - Serum or Plasma COMPREHENSIVE METABOLIC PANEL Lab Routine Mixed hyperlipidemia Expected: 06/21/2024 (Approximate), Expires: 09/20/2024 [facility] Work Phone: Comment on above: Expected: 06/21/2024 (Approximate), Expires: 09/20/2024 Start: 06-21-2024 End: 09-20-2024 Lipid 1996 panel - Serum or Plasma LIPID PANEL BASIC Lab Routine Mixed hyperlipidemia Expected: 06/21/2024 (Approximate), Expires: 09/20/2024 [facility] Comment on above: Expected: 06/21/2024 (Approximate), Expires: 09/20/2024 Start: 06-21-2024 End: 09-20-2024 Prostate specific Ag [Mass/volume] in Serum or Plasma PROSTATE-SPECIFIC ANTIGEN DIAGNOSTIC Lab Routine Prostate cancer (HCC) Expected: 06/21/2024 (Approximate), Expires: 09/20/2024 [facility] Comment on above: Expected: 06/21/2024 (Approximate), Expires: 09/20/2024 Start: 06-20-2024 Annual PCP Team Human Service Specialist lorenzo Disease Visit Annual PCP Team Chronic Disease Visit [facility] Start: 06-20-2024 Covid-19 Vaccine ( season) Covid-19 Vaccine () [facility] Comment on above: Postponed from 04/28 (Declined at this time) Start: 05-07-2024 End: 05-07-2024 Patient encounter procedure 05/07/2024 3:00 PM EDT Office Visit Pulmonary Medicine [address] [place] [address] Patito Amaral MD [address] [place], [place] [id number] Chronic hypoxemic respiratory failure (HCC) [J96.11]; Pulmonary emphysema, unspecified emphysema type (HCC) [J43.9] [facility] Comment on above: Chronic hypoxemic re spiratory failure (HCC) [J96.11]; Pulmonary emphysema, unspecified emphysema type (HCC) [J43.9] Start: 04-28-2024 Covid-19 Vaccine () Covid-19 Vaccine () [facility] Start: 04-28-2024 Covid-19 Vaccine () Covid-19 Vaccine () [facility] Start: 04-28-2024 Influenza vaccination Influenza Vacc ine (#1) [facility] Start: 01-06-2024 [facility] Start: 01-06-2024 [facility] Start: 12-20-2023 ANNUAL PCP TEAM BUILDING CUSTODIAN LORENZO DISEASE VISIT ANNUAL PCP TEAM CHRONIC DISEASE VISIT [facility] Start: 12-20-2023 End: 03-20-2024 Comprehensive metabolic 2000 panel - Serum or Plasma COMP METABOLIC PANEL Lab Routine Mixed hyperlipidemia Essential hypertension Expected: 12/20/2023 (Approximate), Expires: 03/20/2024 [facility] Work Phone: Comment on above: Expected: 12/20/2023 (Approximate), Expires: 03/20/2024 Start: 12-20-2023 COVID-19 VACCINE (4 - Booster for Pfizer series) COVID-19 VACCINE (4 - Booster for Pfizer series) [facility] Comment on above: Postponed from 10/07 (Declined at this time) Start: 12-20-2023 COVID-19 VACCINE (4 - Pfizer series) COVID-19 VACCINE (4 - Pfizer series) [facility] Comment on above: Postponed from 10/07 (Declined at this time) Start: 12-20-2023 HEPATITIS C SCREENING HEPATITIS C [place] PIYUSH [facility] Comment on above: Postponed from 07/01 (Declined at this time) Start: 12-20-2023 End: 03-20-2024 Lipid 1996 panel - Serum or Plasma LIPID PANEL BASIC Lab Routine Mixed hyperlipidemia Essential hypertension Expected: 12/20/2023 (Approximate), Expires: 03/20/2024 [facility] Work Phone: Comment on above: Expected: 12/20/2023 (Approximate), Expires: 03/20/2024 Start: 09-13-2023 ANNUAL PCP TEAM BUILDING CUSTODIAN LORENZO DISEASE VISIT ANNUAL PCP TEAM CHRONIC DISEASE VISIT [facility] Start: 08-28-2023 Advance Directive Discussion Advance Directive Discussion [facility] Start: 08-28-2023 Depression Assessment Depression Ass essment [facility] Start: 06-20-2023 End: 08-20-2023 Comprehensive metabolic 2000 panel - Serum or Plasma COMP METABOLIC PANEL Lab Routine Mixed hyperlipidemia Expected: 06/20/2023 (Approximate), Expires: 08/20/2023 [facility] Work Phone: Comment on above: Expected: 06/20/2023 (Approximate), Expires: 08/20/2023 Start: 06-20-2023 End: 08-20-2023 Lipid 1996 panel - Serum or Plasma LIPID PANEL BASIC Lab Routine Mixed hyperlipidemia Expected: 06/20/2023 (Approximate), Expires: 08/20/2023 [facility] Work Phone: Comment on above: Expected: 06/20/2023 (Approximate), Expires: 08/20/2023 Start: 06-20-2023 End: 08-20-2023 Prostate specific Ag [Mass/volume] in Serum or Plasma PSA/PROSTSPECAG DIAG Lab Routine Prostate cancer (HCC) Expected: 06/20/2023 (Approximate), Expires: 08/20/2023 [facility] Work Phone: Comment on above: Expected: 06/20/2023 (Approximate), Expires: 08/20/2023 Start: 04-28-2023 Influenza vaccination C [facility] Start: 12-13-2022 [facility] Start: 12-13-2022 Patient referral to dietitian [facility] Start: 12-12-2022 End: 02-11-2023 CBC panel - Blood by Automated count CBC Lab Routine Essential hypertension Weight loss Expected: 12/12/2022 (Approximate), Expires: 02/11/2023 [facility] Work Phone: Comment on above: Expected: 12/12/2022 (Approximate), Expires: 02/11/2023 Start: 12-12-2022 End: 02-11-2023 Comprehensive metabolic 2000 panel - Serum or Plasma COMP METABOLIC PANEL Lab Routine Mixed hyperlipidemia Essential hypertension Weight loss Expected: 12/12/2022 (Approximate), Expires: 02/11/2023 [facility] Work Phone: Comment on above: Expected: 12/12/2022 (Approximate), Expires: 02/11/2023 Start: 12-12-2022 End: 02-11-2023 Lipid 1996 panel - Serum or Plasma LIPID PANEL BASIC Lab Routine Mixed hyperlipidemia Essential hypertension Expected: 12/12/2022 (Approximate), Expires: 02/11/2023 [facility] Work Phone: Comment on above: Expected: 12/12/2022 (Approximate), Expires: 02/11/2023 Start: 08-28-2022 ADVANCE DIRECTIVE DISCUSSION ADVANCE DIRECTIVE DISCUSSION [facility] Start: 08-28-2022 DEPRESSION ASSESSMENT DEPRESSION ASS ESSMENT [facility] Start: 08-27-[address] [facility] Start: 08-26-2022 Referral to occupati onal therapist [facility] Start: 08-26-2022 Referral to service [facility] Start: 08-26-2022 Care planning and pr oblem solving actions [facility] Start: 08-25-2022 Incentive spirometry [facility] Start: 08-25-2022 Ambulation without limitation [facility] Start: 08-25-2022 Assessment of risk o f venous thromboembolism [facility] Start: 08-25-2022 Drainage tube care management [facility] Start: 08-25-2022 Inhalation therapy procedure [facility] Start: 08-25-2022 Insertion of cathete r into peripheral vein [facility] Start: 08-25-2022 Oxygen therapy [facility] Start: 08-25-2022 Providing care accor ding to standard [facility] Start: 08-25-2022 Referral to general surgeon [facility] Start: 08-25-2022 [facility] Start: 08-25-2022 End: 08-25-2022 Following clinical pathway protocol [facility] Start: 08-25-2022 Plain chest X-ray Chest 1 View (Port able) [facility] Work Phone: Start: 08-25-2022 XR Chest Single view [facility] Work Phone: Start: 08-25-2022 Verification routine [facility] Work Phone: Start: 08-25-2022 Admission procedure [facility] Start: 08-25-2022 [facility] Work Phone: Start: 08-25-2022 [facility] Work Phone: Start: 08-25-2022 End: 08-25-2022 Blood culture [facility] Work Phone: Start: 08-25-2022 Patient referral to dietitian [facility] Start: 04-28-2022 Influenza vaccination INFLUENZA (#1) [facility] Start: 10-07-2021 COVID-19 VACCINE (4 - Booster for Pfizer series) COVID-19 VACCINE (4 - Booster for Pfizer series) [facility] Start: 11-19-2019 FECAL OCCULT BLOOD FECAL OCCULT BLOO D [facility] Start: 2019 RSV Vaccine (1 - 1-d ose 75+ series) RSV Vaccine (1 - 1-dose 75+ series) [facility] Start: 11-20-2018 Urine microalbumin profile [facility] Start: 2004 RSV Vaccine (1 - 1-d ose 60+ series) RSV Vaccine (1 - 1-dose 60+ series) [facility] Start: 1994 SHINGRIX VACCINE (1 of 2) YOUNG GRIX VACCINE (1 of 2) [facility] Start: 1962 HEPATITIS C SCREENING HEPATITIS C [facility] Bacteria identified in Blood by Culture Blood Culture [facility] Work Phone: Bacteria identified in Sputum by Respiratory culture [facility] Work Phone: Blood culture [facility] Work Phone: End: 06-28-2025 CT Chest WO contrast CT CHEST WO IVCON Radiology Routine Pulmonary emphysema, unspecified emphysema type (HCC) Abnormal CXR History of pneumothorax 1 Occurrences starting 05/29/2024 until 06/28/2025 [facility] Work Phone: Comment on above: 1 Occurrences starti ng 05/29/2024 until 06/28/2025 CT Chest WO contrast CT CHEST WO IVCON Radiology Routine Pulmonary emphysema, unspecified emphysema type (HCC) Abnormal CXR History of pneumothorax 06/03/2024 3:51 PM EDT [facility] Work Phone: CT Chest WO contrast CT CHEST WO IVCON Radiology Routine Abnormal CT of the chest 08/12/2024 3:55 PM EST [facility] Work Phone: End: 10-28-2023 Ct thorax w/o contrast material CT CHEST WO IVCON Radiology Routine Other pneumothorax 1 Occurrences starting 09/28/2022 until 10/28/2023 [facility] Work Phone: Comment on above: 1 Occurrences starti ng 09/28/2022 until 10/28/2023 End: 10-28-2023 LUNG DIFFUSION CAPACITY (DLCO) LUNG DIFFUSION CAPACITY (DLCO) PFT Routine Pulmonary emphysema, unspecified emphysema type (HCC) Chronic hypoxemic respiratory failure (HCC) 1 Occurrences starting 09/28/2022 until 10/28/2023 [facility] Work Phone: Comment on above: 1 Occurrences starti ng 09/28/2022 until 10/28/2023 End: 06-08-2025 LUNG DIFFUSION CAPACITY (DLCO) LUNG DIFFUSION CAPACITY (DLCO) PFT Routine Pulmonary emphysema, unspecified emphysema type (HCC) 1 Occurrences starting 05/09/2024 until 06/08/2025 [facility] Comment on above: 1 Occurrences starti ng 05/09/2024 until 06/08/2025 End: 10-28-2023 LUNG VOLUMES LUNG VOLUMES PFT Routine Pulmonary emphysema, unspecified emphysema type (HCC) Chronic hypoxemic respiratory failure (HCC) 1 Occurrences starting 09/28/2022 until 10/28/2023 [facility] Work Phone: Comment on above: 1 Occurrences starti ng 09/28/2022 until 10/28/2023 End: 06-08-2025 LUNG VOLUMES LUNG VOLUMES PFT Routine Pulmonary emphysema, unspecified emphysema type (HCC) 1 Occurrences starting 05/09/2024 until 06/08/2025 [facility] Comment on above: 1 Occurrences starti ng 05/09/2024 until 06/08/2025 End: 10-28-2023 OXIMETRY WITH AMBULATION OXIMETRY WITH AMBULATION PFT Routine Pulmonary emphysema, unspecified emphysema type (HCC) Chronic hypoxemic respiratory failure (HCC) 1 Occurrences starting 09/28/2022 until 10/28/2023 [facility] Work Phone: Comment on above: 1 Occurrences starti ng 09/28/2022 until 10/28/2023 End: 06-08-2025 OXIMETRY WITH AMBULATION OXIMETRY WITH AMBULATION PFT Routine Pulmonary emphysema, unspecified emphysema type (HCC) 1 Occurrences starting 05/09/2024 until 06/08/2025 [facility] Comment on above: 1 Occurrences starti ng 05/09/2024 until 06/08/2025 OXYGEN ORDER CHANGES OXYGEN ORDE R CHANGES Procedures Routine Chronic hypoxemic respiratory failure (HCC) Ordered: 11/06/2023 [facility] Work Phone: Comment on above: Ordered: 11/06/2023 Patient Education ED COPD Flare [facility] Work Phone: Patient referral [facility] Work Phone: Pulmonary rehabilita tion pro CONSULT PULMONARY REHABILITATION PROGRAM Procedures Routine Pulmonary emphysema, unspecified emphysema type (HCC) Chronic hypoxemic respiratory failure (HCC) Bullous emphysema (HCC) Ordered: 09/28/2022 [facility] Work Phone: Comment on above: Ordered: 09/28/2022 Pulmonary rehabilita tion pro CONSULT PULMONARY REHABILITATION PROGRAM Procedures Routine Centrilobular emphysema (HCC) Ordered: 11/29/2022 [facility] Work Phone: Comment on above: Ordered: 11/29/2022 End: 12-21-2023 Radiologic exam chest 2 views XR CHEST 2V FRONTAL/LAT Radiology Routine Other pneumothorax 1 Occurrences starting 11/21/2022 until 12/21/2023 [facility] Work Phone: Comment on above: 1 Occurrences starti ng 11/21/2022 until 12/21/2023 Respiratory Culture Respiratory Culture [facility] Work Phone: End: 06-08-2025 SPIROMETRY BASELINE ONLY SPIROMETRY BASELINE ONLY PFT Routine Pulmonary emphysema, unspecified emphysema type (HCC) 1 Occurrences starting 05/09/2024 until 06/08/2025 [facility] Comment on above: 1 Occurrences starti ng 05/09/2024 until 06/08/2025 End: 10-28-2023 SPIROMETRY WITH DILATOR IF OBSTRUCTED SPIROMETRY WITH DILATOR IF OBSTRUCTED PFT Routine Pulmonary emphysema, unspecified emphysema type (HCC) Chronic hypoxemic respiratory failure (HCC) 1 Occurrences starting 09/28/2022 until 10/28/2023 [facility] Work Phone: Comment on above: 1 Occurrences starti ng 09/28/2022 until 10/28/2023 End: 06-08-2025 XR Chest PA and Lateral XR CHEST 2V FRONTAL/LAT Radiology Routine Pulmonary emphysema, unspecified emphysema type (HCC) History of pneumothorax 1 Occurrences starting 05/09/2024 until 06/08/2025 [facility] Work Phone: Comment on above: 1 Occurrences starti ng 05/09/2024 until 06/08/2025 XR Pelvis AP XR PELVIS 1V AP Radiology Routine Primary osteoarthritis of left hip Ordered: 12/23/2024 [facility] Work Phone: Comment on above: Ordered: 12/23/[address] [facility] Immunizations Immunization Date Immunization Notes Care Provider Fa cili 06-27-2024 influenza, high dose seasonal, preservative-free Otilia Lopez MD Work Phone: [facility] 05-09-2024 pneumococcal conjuga te (PCV20) vaccine, 20 valent (PREVNAR 20) Renetta Seabold ENGINEER SERGEANT.LAST GREASER Work Phone: [facility] 05-09-2024 pneumococcal Conjuga te, unspecified formulation Renetta Seabold ENGINEER SERGEANT.LAST GREASER Work Phone: [facility] 06-20-2023 influenza (HD-IIV4) vaccine, age 65+ yr, high dose, quadrivalent, PF (FLUZONE HIGH-DOSE) Otilia Lopez MD Work Phone: [facility] 06-20-2023 influenza virus vaccine, unspecified formulation Renetta Seabold ENGINEER SERGEANT.LAST GREASER Work Phone: [facility] 08-12-2021 COVID-19 original vaccine, age 12+ yr, monovalent (PFIZER-BIONTECH - PURPLE TOP) Otilia Lopez MD Work Phone: [facility] 07-02-2021 influenza, high-dose , quadrivalent vaccine (FLUZONE HIGH DOSE QUADRIVALENT) Ann Marie Recio [facility] 11-26-2020 Covid (Pfizer) Dr. Otilia callahan Work Phone: [facility] 11-05-2020 Covid (Pfizer) Dr. Otilia callahan Work Phone: [facility] 11-19-2018 tetanus and diphther ia toxoids, adsorbed, preservative free, for adult use (5 Lf of tetanus toxoid and 2 Lf of diphtheria toxoid) Ann Marie Recio [facility] 05-26-2016 influenza, high dose seasonal, preservative-free Ann Marie Recio [facility] 05-26-2016 pneumococcal conjuga te vaccine, 13 valent Ann Marie Recio LPN [facility] 07-09-2012 influenza virus vaccine, unspecified formulation Ann Marie Recio [facility] Work Phone: 06-22-2011 influenza virus vaccine, unspecified formulation Ann Marie Recio LPN [facility] 08-28-2009 pneumococcal polysaccharide vaccine, 23 valent Ann Marie Recio LPN [facility] Payers Date Payer Category Payer Self-pay [id number] 2019 Medicare UHC AAR MEDICAR E [facility] MEDICARE O [id number] 2019-Present [phone] [address] [address] [place] [address] HMO [id number] 2019 Medicare (Managed Care) [facility] MEDICARE HMO [id number] 2019 Unknown [id number] Medicare [id number] Medicare MEDICARE PART A B [id number] Unknown [id number] Unknown [id number] Unknown [id number] Unknown [id number] Unknown [id number] Unknown [id number] Unknown [id number] Unknown [id number] Social History Date Type Detail Facility Start: 08-25-2022 End: 01-06-2024 Tobacco smoking status [facility] Unknown if ever smoked [facility] Start: 1945 Sex Assigned At Male [facility] Start: 09-21-2012 End: 03-03-2025 Tobacco smoking status NHIS Ex-smoker [facility] Start: 08-25-1982 End: 08-25-2022 History of tobacco use Current smoker [facility] Start: 08-25-1982 End: 08-25-2022 History of tobacco use Cigarette Smoker [facility] Start: 09-21-2012 End: 03-06-2023 Cigarettes smoked current (pack per day) - Reported 0.5 [facility] Start: 09-21-2012 End: 12-23-2024 Tobacco use and exposure Smokeless tobacco non-user [facility] Start: 07-02-2021 End: 12-23-2024 Alcohol intake Current non-drinker of alcohol (finding) [facility] Start: 06-30-2021 End: 09-13-2022 History SDOH Alcohol Frequency 2 [facility] Start: 06-30-2021 End: 09-13-2022 History SDOH Alcohol Std Drinks 1 [facility] Start: 06-30-2021 History SDOH Social Connections Meetings 98 [facility] Start: 06-30-2021 End: 09-13-2022 History SDOH Social Connections Living 3 [facility] Start: 06-30-2021 End: 09-13-2022 History SDOH Physical Activity DPW 4 [facility] Start: 06-30-2021 History SDOH Financial 5 [facility] Start: 01-08-2020 Education 17 [facility] Start: 09-21-2012 Alcohol Comment rare [facility] Start: 1945 Sex Assigned At Not on file C [facility] Start: 09-13-2022 [facility] Start: 09-13-2022 History SDOH Alcohol Std Drinks 0 [facility] Start: 09-13-2022 History SDOH Physica l Activity DPW 6 [facility] Start: 09-13-2022 Tobacco Comment Pt stopped smo cresencio the day he was admitted into the hospital. [facility] Start: 09-13-2022 End: 03-06-2023 Social connection and isolation panel [facility] Do you belong to any clubs or organizations such as baptist groups, unions, fraternal or athletic groups, or school groups? No [facility] Are you now , , , , never or living with a partner? [facility] How often to you hav e a drink containing alcohol? Never [facility] How many standard dr inks containing alcohol do you have on a typical day? Patient does not drink [facility] How hard is it for y ou to pay for the very basics like food, housing, medical care, and heating Not very hard [facility] Do you feel stress - tense, restless, nervous, or anxious, or unable to sleep at night because your mind is troubled all the time - these days [OSQ] Not at all [facility] (I/We) worried wheth er (my/our) food would run out before (I/we) got money to buy more. Never true [facility] Has the [employer] or [employer] threatened to shut off services in your home in past 12Mo Yes [facility] How hard is it for y ou to pay for the very basics like food, housing, medical care, and heating Hard [facility] Do you feel stress - tense, restless, nervous, or anxious, or unable to sleep at night because your mind is troubled all the time - these days [OSQ] Only a little [facility] (I/We) worried wheth er (my/our) food would run out before (I/we) got money to buy more. Sometimes true [facility] Start: 11-05-2024 Sex Male (finding) [facility] How hard is it for y ou to pay for the very basics like food, housing, medical care, and heating Somewhat hard [facility] NEGATED: Highlighted rowStart: VELVETF History of tobacco use Passive smoker [facility] Goals Date Patient Goal Desired Activity /State Functional Status Date Assessment Result Facility 12-24-2024 Total score [AUDIT-C] 0 12/25/19 12:29 PM EDT User, Theodorehart [facility] 12-24-2024 Within the last year , have you been humiliated or emotionally abused in other ways by your partner or ex-partner? No 12/24/2024 12:29 PM EDT User, Mychart No [facility] 12-24-2024 Within the last year , have you been afraid of your partner or ex-partner? No 12/24/2024 12:29 PM EDT [email or web address] 12-24-2024 Within the last year , have you been raped or forced to have any kind of sexual activity by your partner or ex-partner? No 12/24/2024 12:29 PM EDT User, Theodorehart No [facility] 12-24-2024 Within the last year , have you been kicked, hit, slapped, or otherwise physically hurt by your partner or ex-partner? No 12/24/2024 12:29 PM EDT User, Theodorehart No [facility] 12-24-2024 How often to you hav e a drink containing alcohol? Never 12/24/2024 12:29 PM EDT User, Mychart Never [facility] 12-24-2024 Functional status Patient does n ot drink 12/24/2024 12:29 PM EDT User, Mychart Patient does not drink [facility] 12-24-2024 How often do you hav e 6 or more drinks on 1 occasion? Never 12/24/2024 12:29 PM EDT User, Mychart Never [facility] 10-17-2024 Functional status Ambulates;Denny r;Bathroom Privilege [facility] Work Phone: 09-06-2022 Are you deaf, or do you have serious difficulty hearing No 09/06/2022 5:53 PM Emani Brown RN No [facility] 09-06-2022 Are you blind, or do you have serious difficulty seeing, even when wearing glasses No 09/06/2022 5:53 PM Emani Brown RN No [facility] 09-06-2022 Do you have serious difficulty walking or climbing stairs No 09/06/2022 5:53 PM Emani Brown RN No [facility] 09-06-2022 Do you have difficul ty dressing or bathing No 09/06/2022 5:53 PM Emani Brown RN No [facility] 09-06-2022 Because of a physica l, mental, or emotional condition, do you have difficulty doing errands alone such as visiting a physician's office or shopping No 09/06/2022 5:53 PM Emani Brown RN No [facility] 08-27-2022 Functional status Ambulates;Bedrest [facility] Work Phone: Mental Status Date Assessment Result Facility 10-17-2024 Cognitive function Voice/Name [facility] Work Phone: 08-27-2022 Cognitive function Voice/Name [facility] Work Phone: Clinical Notes 03-14-2013 to 03-03-2025 Patient Jens Enamorado APRN.LAST GREASER - 12/27/2024 1:00 PM EDTTelephone Encounter - Otilia Lopez MD - 12/26/2024 2:35 PM EDTTelephone Encounter - Tatiana Earl MA - 12/24/2024 1:59 PM EDT Note Date & Type Note Facility 03-03-2025 History and physi kishor note [facility] 03-03-2025 Radiology Diagnostic study note [facility] Imaging Services [address] [place], [place] [id number] CTA Abd/Pelvis W/WO Contrast MR#: [id number] Acct: [id number] Name: DIMITRI PAINTER Rep #: [id number] : 1945 M 79 From: Silverio Torres MD PCP: Dr. Otilia Lopez MD Status: CO E ER Study:CTA Abd/Pelvis W/WO Contrast Date of Ex am: 03/03/25 Exam# [id number] Ordering Dr: Estephania Cornejo DO PROCEDURE: CTA ABD/PELVIS W/WO CONTRAST 03/03/2025 REASON FOR EXAM: GI BLEED Rectal bleeding. History of prostate cancer and radiation therapy. TECHNIQUE: CTA ABD/PELVIS W/WO CONTRAST Multiplanar Sagittal and Coronal images were obtained. CONTRAST: Isovue-300 VOLUME: 100 mL One or more dose reduction techniques were used (e.g., Automated exposure control, adjustment of the mA and/or kV according to patient size, use of iterative reconstruction technique). RADIATION DOSE SUMMARY: CTDlvol: 24.5 mGy DLP: 300.66 mGycm COMPARISON: Prior study dated October 14, 2024. FINDINGS: Aorta: Moderate mixed calcified and soft plaque. No abdominal aortic aneurysm. Iliac Arteries: Scattered atherosclerotic plaque. No aneurysm or significant stenosis. 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 SMA: Unremarkable. SARA : Not visualized. Right Renal: Unremarkable Left Renal: Unremarkable. Extravascular Findings: Stable emphysematous changes with bullous formation in the lower lobes. Stable hepatic cysts. 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 Small gallstones along the dependent portion of the gallbladder lumen. Sigmoid diverticulosis. Status post prostatectomy. CT/CTA Abd/Pelvis W/WO Contrast IMPRESSION: Sigmoid diverticulosis. Status post prostatectomy. Stable hepatic cysts. Small gallstones. 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 Reading Location: [facility] CC: Dr. Otilia Lopez MD; Dr. Finn Cornejo DO ~ Features Editor: Signed [facility] 12-27-2024 Instructions Jens Candelaria APRN.LAST GREASER - 12/27/2024 1:14 PM EDT We discussed your upcoming surgery: - You are scheduled for left hip surgery on [address] [place] [address], unless an earlier cancellation becomes available. Please follow any pre-surgical instructions provided by your surgical team. We discussed your medications: - Continue taking Lovastatin 40 mg daily for cholesterol management. Your cholesterol levels, including LDL, are well-controlled. - Continue taking aspirin as directed for heart health. - Continue using your inhaler as needed for emphysema. - Continue using oxygen at night at 2 liters per minute, as previously prescribed by Dr. Neves. You may also use your portable oxygen tank as needed. We reviewed your recent lab results: - Your cholesterol panel, kidney function, electrolytes, glucose, liver enzymes, and PSA levels are all normal. - Your hemoglobin has improved from 10.0 in September to 12.5 currently, indicating recovery from prior blood loss. This is a positive trend, and no changes are needed at this time. - Your red blood cell indices (MCHC and RDWCV) are consistent with mild anemia, which is expected given your history of blood loss. No treatment is required, as your body is regenerating red blood cells appropriately. - Your creatinine and glomerular filtration rate (GFR) are normal, indicating healthy kidney function. We discussed follow-up care: - You are scheduled to see Dr. Lopez in February, or sooner if your surgery date is moved up. At that time, additional blood work will likely be ordered by the pre-anesthesia team or your surgical team. No further blood work is needed before then. - Continue drinking plenty of water to stay hydrated, as this supports overall health and kidney function. Please return to our office as scheduled in February or sooner if you have any concerns. documented in this encounter [facility] 12-27-2024 History of Present illness Narrative Chief Complaint Patient presents with: 6 Month Exam HPI Dimitri Painter is a 79 year old male who presents here today for above reason. Dimitri is a 79-year-old male, with a history of emphysema, hypercholesterolemia, and recent anemia, presenting for a routine follow-up. Dimitri has a scheduled left hip surgery on April 02, with a possibility of an earlier date if a cancellation occurs. He is currently on several medications, including Tylenol and aspirin as needed, lovastatin 40 mg for hypercholesterolemia, and an inhaler for emphysema. He uses oxygen at home at night, prescribed by Dr. Neves at 2 liters, and has a portable tank available if needed. Recent lab results show an LDL of 89, which is the lowest it has been in a couple of years. Kidney function, electrolytes, glucose, and liver enzymes are all normal. PSA levels are very low. Hemoglobin levels have increased from 10.0 on October 24 to 12.5, indicating improvement in anemia. Dimitri received 4 pints of blood during a recent episode of blood loss. Past medical history, appointments, medications, allergies reviewed. EXAM: BP 136/89 (BP Position: Sitting) Pulse 86 Resp 16 Wt 57.2 kg (126 lb) SpO2 97% BMI 21.63 kg/m General Appearance: Well appearing, alert, in no acute distress, well-hydrated, well nourished.. Lungs: Lungs clear to auscultation. No wheezing, rhonchi, rales.. Heart: RRR without murmur, gallop, or rubs. No ectopy. Latest Ref Rng 12/25/2024 Protein, Total 6.3 - 8.0 g/dL 7.5 Albumin 3.9 - 4.9 g/dL 4.3 Calcium 8.5 - 10.2 mg/dL 9.8 Bilirubin, Total 0.2 - 1.3 mg/dL 0.4 Alkaline Phosphatase 38 - 113 U/L 80 AST 14 - 40 U/L 28 ALT 10 - 54 U/L 18 Glucose 74 - 99 mg/dL 78 BUN 9 - 24 mg/dL 12 Creatinine 0.73 - 1.22 mg/dL 0.65 (L) Sodium 136 - 144 mmol/L 137 Potassium 3.7 - 5.1 mmol/L 4.4 Chloride 98 - 107 mmol/L 101 CO2 22 - 30 mmol/L 27 Anion Gap 8 - 15 mmol/L 9 eGFR >=60 mL/min/1.73m 95 WBC 3.70 - 11.00 k/uL 4.68 RBC 4.20 - 6.00 m/uL 4.75 Hemoglobin 13.0 - 17.0 g/dL 12.5 (L) Hematocrit 39.0 - 51.0 % 41.9 MCV 80.0 - 100.0 fL 88.2 MCH 26.0 - 34.0 pg 26.3 MCHC 30.5 - 36.0 g/dL 29.8 (L) RDW-CV 11.5 - 15.0 % 21.8 (H) Platelet Count 150 - 400 k/uL 208 MPV 9.0 - 12.7 fL 9.6 Absolute nRBC <0.01 k/uL <0.01 Cholesterol, Total <200 mg/dL 164 Triglyceride <150 mg/dL 64 HDL Cholesterol >39 mg/dL 62 LDL Cholesterol, Calculated <100 mg/dL 89 Non HDL Cholesterol <130 mg/dL 102 VLDL Cholesterol <30 mg/dL 10 TC:HDL Ratio <5.10 2.65 LDL:HDL Ratio <2.54 1.44 Fasting Time hrs 10 PSA <2.60 ng/mL 0.11 1. Mixed hyperlipidemia (E78.2) Hyperlipidemia, unspecified hyperlipidemia type (E78.5) LDL cholesterol level is 89 mg/dL, the lowest it has been in several years. Current management with Lovastatin 40 mg daily is effective. Continue Lovastatin 40 mg daily. 2. Pulmonary emphysema, unspecified emphysema type (HCC) (J43.9) Stable on current inhaler therapy. Patient uses supplemental oxygen at night, prescribed by Dr. Neves, at 2 L/min. Patient has a portable oxygen tank available for use as needed. Continue current inhaler and nighttime oxygen therapy at 2 L/min. 3. Anemia, unspecified type (D64.9) Hemoglobin level has improved from 10.0 g/dL on 10/24 to 12.5 g/dL currently, indicating recovery from previous blood loss. MCHC and RDW-CV values are slightly abnormal but consistent with recent anemia. Renal function is normal with a GFR of 95 mL/min/1.73 m . Monitor hemoglobin levels with a follow-up CBC prior to scheduled surgery on 04/02. 4. Left hip pain (M25.552) Scheduled for left hip surgery on 04/02. Await surgical intervention. Jens Candelaria APRN.LAST GREASER RTO as scheduled in February This note was partly generated using [employer] voice recognition dictation and may contain some misspelled or inaccurate words missed on review. The patient consented to the use of App[employer] software for draft documentation of the visit consistent with [facility] s Notice of Privacy Practices. documented in this encounter [facility] 12-27-2024 Note HNO ID: [id number] Author: JENS CANDELARIA APRN.CNP Service: ? Author Type: Nurse Practitioner Type: Progress Notes Filed: 12/27/2024 13:17 Note Text: Chief Complaint Patient presents with: 6 Month Exam HPI Dimitri Painter is a 79 year old male who presents here today for above reason. Dimitri is a 79-year-old male, with a history of emphysema, hypercholesterolemia, and recent anemia, presenting for a routine follow-up. Dimitri has a scheduled left hip surgery on April 02, with a possibility of an earlier date if a cancellation occurs. He is currently on several medications, including Tylenol and aspirin as needed, lovastatin 40 mg for hypercholesterolemia, and an inhaler for emphysema. He uses oxygen at home at night, prescribed by Dr. Neves at 2 liters, and has a portable tank available if needed. Recent lab results show an LDL of 89, which is the lowest it has been in a couple of years. Kidney function, electrolytes, glucose, and liver enzymes are all normal. PSA levels are very low. Hemoglobin levels have increased from 10.0 on October 24 to 12.5, indicating improvement in anemia. Dimitri received 4 pints of blood during a recent episode of blood loss. Past medical history, appointments, medications, allergies reviewed. EXAM: BP 136/89 (BP Position: Sitting) Pulse 86 Resp 16 Wt 57.2 kg (126 lb) SpO2 97% BMI 21.63 kg/m? General Appearance: Well appearing, alert, in no acute distress, well-hydrated, well nourished.. Lungs: Lungs clear to auscultation. No wheezing, rhonchi, rales.. Heart: RRR without murmur, gallop, or rubs. No ectopy. Latest Ref Rng 12/25/2024 Protein, Total 6.3 - 8.0 g/dL 7.5 Albumin 3.9 - 4.9 g/dL 4.3 Calcium 8.5 - 10.2 mg/dL 9.8 Bilirubin, Total 0.2 - 1.3 mg/dL 0.4 Alkaline Phosphatase 38 - 113 U/L 80 AST 14 - 40 U/L 28 ALT 10 - 54 U/L 18 Glucose 74 - 99 mg/dL 78 BUN 9 - 24 mg/dL 12 Creatinine 0.73 - 1.22 mg/dL 0.65 (L) Sodium 136 - 144 mmol/L 137 Potassium 3.7 - 5.1 mmol/L 4.4 Chloride 98 - 107 mmol/L 101 CO2 22 - 30 mmol/L 27 Anion Gap 8 - 15 mmol/L 9 eGFR >=60 mL/min/1.73m? 95 WBC 3.70 - 11.00 k/uL 4.68 RBC 4.20 - 6.00 m/uL 4.75 Hemoglobin 13.0 - 17.0 g/dL 12.5 (L) Hematocrit 39.0 - 51.0 % 41.9 MCV 80.0 - 100.0 fL 88.2 MCH 26.0 - 34.0 pg 26.3 MCHC 30.5 - 36.0 g/dL 29.8 (L) RDW-CV 11.5 - 15.0 % 21.8 (H) Platelet Count 150 - 400 k/uL 208 MPV 9.0 - 12.7 fL 9.6 Absolute nRBC <0.01 k/uL <0.01 Cholesterol, Total <200 mg/dL 164 Triglyceride <150 mg/dL 64 HDL Cholesterol >39 mg/dL 62 LDL Cholesterol, Calculated <100 mg/dL 89 Non HDL Cholesterol <130 mg/dL 102 VLDL Cholesterol <30 mg/dL 10 TC:HDL Ratio <5.10 2.65 LDL:HDL Ratio <2.54 1.44 Fasting Time hrs 10 PSA <2.60 ng/mL 0.11 1. Mixed hyperlipidemia (E78.2) Hyperlipidemia, unspecified hyperlipidemia type (E78.5) LDL cholesterol level is 89 mg/dL, the lowest it has been in several years. Current management with Lovastatin 40 mg daily is effective. Continue Lovastatin 40 mg daily. 2. Pulmonary emphysema, unspecified emphysema type (HCC) (J43.9) Stable on current inhaler therapy. Patient uses supplemental oxygen at night, prescribed by Dr. Neves, at 2 L/min. Patient has a portable oxygen tank available for use as needed. Continue current inhaler and nighttime oxygen therapy at 2 L/min. 3. Anemia, unspecified type (D64.9) Hemoglobin level has improved from 10.0 g/dL on 10/24 to 12.5 g/dL currently, indicating recovery from previous blood loss. MCHC and RDW-CV values are slightly abnormal but consistent with recent anemia. Renal function is normal with a GFR of 95 mL/min/1.73 m?. Monitor hemoglobin levels with a follow-up CBC prior to scheduled surgery on 04/02. 4. Left hip pain (M25.552) Scheduled for left hip surgery on 04/02. Await surgical intervention. Jens Candelaria APRN.LAST GREASER RTO as scheduled in February This note was partly generated using [employer] voice recognition dictation and may contain some misspelled or inaccurate words missed on review. The patient consented to the use of App[employer] software for draft documentation of the visit consistent with [facility]?s Notice of Privacy Practices. [facility] 12-26-2024 Telephone encounter Note Has appt with Jens Candelaria 5/2 Otilia Lopez MD [facility] 12-26-2024 Miscellaneous Notes Has appt with Jens Candelaria 5/2 Otilia Lopez MD Type of form: Surgical clearance form from PCP. Pt scheduled for TKR in March. Pre-op testing in February. Form received via fax When form is completed, Fax form to [phone] Form has been forwarded to Physician Desk: Dr. Jessica Earl MA documented in this encounter [facility] 12-24-2024 Telephone encounter Note Type of form: Surgical clearance form from PCP. Pt scheduled for TKR in March. Pre-op testing in February. Form received via fax When form is completed, Fax form to [phone] Form has been forwarded to Physician Desk: Dr. Jessica Earl MA [facility] 12-24-2024 Telephone encounter Note Type of form: Medical clearance for left JUANA DOS: 04/02/25 CAYETANO: 10/29/24 NOV: 03/11/25 Form received via fax When form is completed, Fax form to [phone] Form has been forwarded to Physician Mailbox: Dr. Patito Pringle [facility] 12-24-2024 Miscellaneous Notes Type of form: Medical clearance for left JUANA DOS: 04/02/25 CAYETANO: 10/29/24 NOV: 03/11/25 Form received via fax When form is completed, Fax form to [phone] Form has been forwarded to Physician Mailbox: Dr. Patito Pringle documented in this encounter [facility] 12-23-2024 Note HNO ID: [id number] Author: SUNNY OLMOS MD Service: ? Author Type: Physician Type: Progress Notes Filed: 12/23/2024 14:27 Note Text: Consultation requested by Dr. Cook for an opinion regarding left hip pain. My final recommendations will be communicated back to the requesting physician by way of shared Medical record or letter to requesting physician via US mail. Patient Visit Note Dimitri Painter is a 79 year old male who presents with complaint of Primary osteoarthritis of left hip (primary encounter diagnosis) Worsening left hip pain. Accompanied by his today. History of COPD. Lives in [place]. Current or previous treatment regimens: NSAIDS Medications: Current Outpatient Medications Medication Sig lovastatin 40 mg tablet Take 1 tablet by mouth daily at bedtime. TRELEGY ELLIPTA 200-62.5-25 mcg inhalation powder USE 1 INHALATION BY MOUTH ONCE DAILY AT THE SAME TIME EACH DAY DIRECTED sodium chloride (NEBUSAL) 3 % nebulizer solution Use 4 mL via nebulizer two times a day as needed for cough (to help thin secretions). docusate sodium (COLACE) 100 mg capsule once daily. guaiFENesin (MUCINEX) 600 mg 12 hr tablet Take 2 tablets by mouth two times a day. albuterol (PROVENTIL) 2.5 mg /3 mL (0.083 %) nebulizer solution Use 3 mL via nebulizer every 4 hours as needed for wheezing/shortness of breath. Use over 5-15minutes. fluticasone (FLONASE) 50 mcg/actuation nasal spray Use 1-2 Sprays in each nostril once daily. albuterol HFA (PROAIR HFA) 90 mcg/actuation inhaler Inhale 2 Puffs by mouth every 4 hours as needed for wheezing/shortness of breath. Take as directed OXYGEN, HOME THERAPY, 2 L/min by Nasal Cannula route continuous. vit A,C,P-Thqs-Xgftne (PRESERVISION AREDS) 2,148 mcg-113 mg-45 mg-17.4mg tab Take 1 tablet by mouth twice daily. aspirin, enteric coated (ASPIRIN, ENTERIC COATED) 81 mg EC tablet Take 81 mg by mouth once daily. Indications: prevention of transient ischemic attack acetaminophen (TYLENOL) 500 mg tablet Take 2 tablets by mouth every 6 hours as needed for pain. Indications: pain Propylene Glycol-Glycerin 1-0.3 % drop Use in both eyes. TIMOLOL MALEATE OPHTHALMIC Use in eyes. Left eye No current facility-administered medications for this visit. Allergies: ALLERGIES Allergen Reactions Anesthesia S/I-40 (* Other: See Comments With use of anesthesia knocks him out, doesn't need much per . Physical Examination: Resp 14 Ht 5' 4 (1.63m) Wt 124 lb (56.2kg) BMI 21.27 kg/(m2). Ortho Exam Antalgic gait with a cane Limited painful ROM of the left hip NVI Images: AP pelvis taken today and reviewed by myself shows severe bone on bone DJD of the left hip Procedures Assessment and Plan: 1. Primary osteoarthritis of left hip - ICD9: 715.15, ICD10: M16.12 The patient understands the diagnosis, treatment options both operative and non-operative, their associated risks, complications, benefits and failures and wishes to proceed with surgical intervention. The patient's ADL's have become more difficult including but not limited to decrease ability to ambulate. The patient reports their quality of life has decreased. The surgery the patient wishes to proceed with is a left JUANA DA. Prior to surgery it was recommended for the patient to be seen by their PCP for surgical optimization. In addition they will obtain dental clearance if they have not seen their dentist in the previous 6 months. They understand that surgery cannot be guaranteed to relieve all the symptoms and there is a small but unlikely chance that the symptoms could be worse rather than better. They understands the risks as significant as can occur, including but no limited to the additional risks of loss of limb, infection, deep venous thrombosis, pulmonary embolism, failure of this procedure, wound healing problems, neurovascular injury, continued pain, weakened and muscle atrophy, reflex sympathetic dystrophy and scarring and stiffness. They understand, all questions were answered, and the patient has been provided an informed consent. It was recommended to the patient to do prehab physical therapy, attend our hospital sponsored joint camp, and to stop herbal supplements prior to surgery. Post hospital care and rehabilitation plan was discussed. Patient verbalized understanding and an educational materials were provided. We have made the decision to move forward with a major orthopaedic surgery today, and this represents the highest form of medical decision-making complexity. The patient's diagnosis of Primary osteoarthritis of left hip (primary encounter diagnosis) represents a chronic pathology/diagnosis/injury that represents a current or possible direct threat to bodily function. Will continue to monitor patient for Primary osteoarthritis of left hip (primary encounter diagnosis), patient to schedule visit as per follow up discussed. Sunny Olmos MD [facility] 12-23-2024 History of Present illness Narrative Consultation requested by Dr. Cook for an opinion regarding left hip pain. My final recommendations will be communicated back to the requesting physician by way of shared Medical record or letter to requesting physician via [place] mail. Patient Visit Note Dimitri Painter is a 79 year old male who presents with complaint of Primary osteoarthritis of left hip (primary encounter diagnosis) Worsening left hip pain. Accompanied by his today. History of COPD. Lives in [place]. Current or previous treatment regimens: NSAIDS Medications: Current Outpatient Medications Medication Sig lovastatin 40 mg tablet Take 1 tablet by mouth daily at bedtime. TRELEGY ELLIPTA 200-62.5-25 mcg inhalation powder USE 1 INHALATION BY MOUTH ONCE DAILY AT THE SAME TIME EACH DAY DIRECTED sodium chloride (NEBUSAL) 3 % nebulizer solution Use 4 mL via nebulizer two times a day as needed for cough (to help thin secretions). docusate sodium (COLACE) 100 mg capsule once daily. guaiFENesin (MUCINEX) 600 mg 12 hr tablet Take 2 tablets by mouth two times a day. albuterol (PROVENTIL) 2.5 mg /3 mL (0.083 %) nebulizer solution Use 3 mL via nebulizer every 4 hours as needed for wheezing/shortness of breath. Use over 5-15minutes. fluticasone (FLONASE) 50 mcg/actuation nasal spray Use 1-2 Sprays in each nostril once daily. albuterol HFA (PROAIR HFA) 90 mcg/actuation inhaler Inhale 2 Puffs by mouth every 4 hours as needed for wheezing/shortness of breath. Take as directed OXYGEN, HOME THERAPY, 2 L/min by Nasal Cannula route continuous. vit A,C,P-Sdkn-Oluqrj (PRESERVISION AREDS) 2,148 mcg-113 mg-45 mg-17.4mg tab Take 1 tablet by mouth twice daily. aspirin, enteric coated (ASPIRIN, ENTERIC COATED) 81 mg EC tablet Take 81 mg by mouth once daily. Indications: prevention of transient ischemic attack acetaminophen (TYLENOL) 500 mg tablet Take 2 tablets by mouth every 6 hours as needed for pain. Indications: pain Propylene Glycol-Glycerin 1-0.3 % drop Use in both eyes. TIMOLOL MALEATE OPHTHALMIC Use in eyes. Left eye No current facility-administered medications for this visit. Allergies: ALLERGIES Allergen Reactions Anesthesia S/I-40 (* Other: See Comments With use of anesthesia knocks him out, doesn't need much per . Physical Examination: Resp 14 Ht 5' 4 (1.63m) Wt 124 lb (56.2kg) BMI 21.27 kg/(m^2). Ortho Exam Antalgic gait with a cane Limited painful ROM of the left hip NVI Images: AP pelvis taken today and reviewed by myself shows severe bone on bone DJD of the left hip Procedures Assessment and Plan: 1. Primary osteoarthritis of left hip - ICD9: 715.15, ICD10: M16.12 The patient understands the diagnosis, treatment options both operative and non-operative, their associated risks, complications, benefits and failures and wishes to proceed with surgical intervention. The patient's ADL's have become more difficult including but not limited to decrease ability to ambulate. The patient reports their quality of life has decreased. The surgery the patient wishes to proceed with is a left JUANA DA. Prior to surgery it was recommended for the patient to be seen by their PCP for surgical optimization. In addition they will obtain dental clearance if they have not seen their dentist in the previous 6 months. They understand that surgery cannot be guaranteed to relieve all the symptoms and there is a small but unlikely chance that the symptoms could be worse rather than better. They understands the risks as significant as can occur, including but no limited to the additional risks of loss of limb, infection, deep venous thrombosis, pulmonary embolism, failure of this procedure, wound healing problems, neurovascular injury, continued pain, weakened and muscle atrophy, reflex sympathetic dystrophy and scarring and stiffness. They understand, all questions were answered, and the patient has been provided an informed consent. It was recommended to the patient to do prehab physical therapy, attend our hospital sponsored joint camp, and to stop herbal supplements prior to surgery. Post hospital care and rehabilitation plan was discussed. Patient verbalized understanding and an educational materials were provided. We have made the decision to move forward with a major orthopaedic surgery today, and this represents the highest form of medical decision-making complexity. The patient's diagnosis of Primary osteoarthritis of left hip (primary encounter diagnosis) represents a chronic pathology/diagnosis/injury that represents a current or possible direct threat to bodily function. Will continue to monitor patient for Primary osteoarthritis of left hip (primary encounter diagnosis), patient to schedule visit as per follow up discussed. Sunny Olmos MD documented in this encounter [facility] 12-16-2024 Telephone encounter Note The following approved medication requests have been transmitted electronically. Requested Prescriptions Pending Prescriptions Disp Refills lovastatin 40 mg tablet 90 tablet 3 Sig: Take 1 tablet by mouth daily at bedtime. Jens Candelaria APRN.CNP [facility] 12-16-2024 Miscellaneous Notes The following approved medication requests have been transmitted electronically. Requested Prescriptions Pending Prescriptions Disp Refills lovastatin 40 mg tablet 90 tablet 3 Sig: Take 1 tablet by mouth daily at bedtime. Jens Candelaria APRN.CNP Patient calls and states that he needs medication sent to mail away pharmacy at [facility]. The patient has been identified by name and date of : Yes Caregiver verified no other encounters exist for this prescription request: Yes Caregiver confirmed with patient/requestor that no other refills are due, in the near future, with this provider at this time: Yes The last office visit in the department: 10/28/2024 Does the patient have a future office visit with this provider/department: Yes 12/27/2024 Requested Prescriptions Pending Prescriptions Disp Refills lovastatin 40 mg tablet 90 tablet 3 Sig: Take 1 tablet by mouth daily at bedtime. Joan Miranda RN December 16, 2024 12:02 PM documented in this encounter [facility] 12-16-2024 Telephone encounter Note Patient calls and states that he needs medication sent to mail away pharmacy at [facility]. The patient has been identified by name and date of : Yes Caregiver verified no other encounters exist for this prescription request: Yes Caregiver confirmed with patient/requestor that no other refills are due, in the near future, with this provider at this time: Yes The last office visit in the department: 10/28/2024 Does the patient have a future office visit with this provider/department: Yes 12/27/2024 Requested Prescriptions Pending Prescriptions Disp Refills lovastatin 40 mg tablet 90 tablet 3 Sig: Take 1 tablet by mouth daily at bedtime. Joan Miranda RN December 16, 2024 12:02 PM [facility] 11-13-2024 Note HNO ID: [id number] Author: JOEYDEMARCOKI, DO Service: ? Author Type: Physician Type: Progress Notes Filed: 11/13/2024 14:08 Note Text: SERVICE DATE: November 13, 2024 PCP: Otilia Lopez MD Subjective Patient ID: Dimitri is a 79 year old male. Chief Complaint: Patient presents with: Left Hip Pain: Referred by Dr. Lopez PAIN EVALUATION 11/11/2024 1551 11/13/2024 1301 Pain Level: -- -- 1-9 Pain Location: Hip-Left Hip-Left Description: Aching;Dull Dull;Aching;Radiating Duration Amount of Time: -- 5 Duration Units: Months Months Frequency: Continuous Continuous Intervention/Comfort measure: Reposition;Cold;Support surface Medication HPI Patient presents today with left hip pain x 5 months. He states he has had pain in the past dating back about 13 years ago. No specific mechanism of injury that he is aware of. He has pain that he points to the lateral hip and to the groin. He states he has pain when he stands and walks. He was taking meloxicam but he had issues with urinary tract bleeding so he had to stop it. Review of Systems ACTIVE PROBLEM LIST Hyperlipidemia Basal Cell Carcinoma Lumbosacral Pain Pneumothorax Nicotine use disorder, F17.2 Chronic Hypoxemic Respiratory Failure (Hcc) Pulmonary Emphysema, Unspecified Emphysema Type (Hcc) PAST MEDICAL HISTORY Diagnosis Date Basal cell cancer right ear Cataract right eye Diverticulosis of colon (without mention of hemorrhage) Glaucoma High cholesterol Hypertension Personal history of colonic polyps Pulmonary emphysema, unspecified emphysema type (HCC) 10/28/2024 Squamous cell carcinoma right forearm PAST SURGICAL HISTORY Procedure Laterality Date COLONOSCOPY FLX DX W/COLLJ SPEC WHEN PFRMD age 59 Colonoscopy COLONOSCOPY FLX DX W/COLLJ SPEC WHEN PFRMD 01/05/2012 repeat 5 years CYSTOSCOPY N/A 10/16/2024 [facility] cauterization PROSTATECTOMY;RADICAL RETROPUBIC REPAIR RETINAL DETACHMENT SCLERAL BUCKLING Scleral Buckle FAMILY HISTORY Problem Relation Age of Onset Heart Mother age 65 Diabetes Father age 89 Cancer Sister breast Social History Tobacco Use Smoking status: Former Current packs/day: 0.00 Average packs/day: 0.5 packs/day for 40.0 years (20.0 ttl pk-yrs) Types: Cigarettes Start date: 08/25/1982 Quit date: 08/25/2022 Years since quittin.2 Smokeless tobacco: Never Tobacco comments: Pt stopped smoking the day he was admitted into the hospital. Vaping Use Vaping status: Never Used Substance Use Topics Alcohol use: No Comment: rare Drug use: No ALLERGIES Allergen Reactions Anesthesia S/I-40 (* Other: See Comments With use of anesthesia knocks him out, doesn't need much per . MEDICATIONS: lovastatin 40 mg tablet Take 1 tablet by mouth daily at bedtime. TRELEGY ELLIPTA 200-62.5-25 mcg inhalation powder USE 1 INHALATION BY MOUTH ONCE DAILY AT THE SAME TIME EACH DAY DIRECTED sodium chloride (NEBUSAL) 3 % nebulizer solution Use 4 mL via nebulizer two times a day as needed for cough (to help thin secretions). docusate sodium (COLACE) 100 mg capsule once daily. guaiFENesin (MUCINEX) 600 mg 12 hr tablet Take 2 tablets by mouth two times a day. albuterol (PROVENTIL) 2.5 mg /3 mL (0.083 %) nebulizer solution Use 3 mL via nebulizer every 4 hours as needed for wheezing/shortness of breath. Use over 5-15minutes. fluticasone (FLONASE) 50 mcg/actuation nasal spray Use 1-2 Sprays in each nostril once daily. albuterol HFA (PROAIR HFA) 90 mcg/actuation inhaler Inhale 2 Puffs by mouth every 4 hours as needed for wheezing/shortness of breath. Take as directed OXYGEN, HOME THERAPY, 2 L/min by Nasal Cannula route continuous. vit A,C,D-Cmqw-Jgqyln (PRESERVISION AREDS) 2,148 mcg-113 mg-45 mg-17.4mg tab Take 1 tablet by mouth twice daily. aspirin, enteric coated (ASPIRIN, ENTERIC COATED) 81 mg EC tablet Take 81 mg by mouth once daily. Indications: prevention of transient ischemic attack acetaminophen (TYLENOL) 500 mg tablet Take 2 tablets by mouth every 6 hours as needed for pain. Indications: pain Propylene Glycol-Glycerin 1-0.3 % drop Use in both eyes. TIMOLOL MALEATE OPHTHALMIC Use in eyes. Left eye Allergies, medications, past surgical history, family history and past medical history were reviewed per this encounter. Objective Ortho Exam 79-year-old male pleasant cooperative with exam no acute distress. Evaluation of the left hip shows pain with palpation over the greater trochanter and posterior aspect of the hip. There is also pain in the groin with flexion abduction external rotation and logroll. X-rays of the hip are reviewed with patient which showed severe arthritic change. Assessment/Plan ASSESSMENT Diagnosis (M70.62) Trochanteric bursitis of left hip (primary encounter diagnosis) (M25.552) Left hip pain Plan: CONSULT TO ORTHOPAEDICS (M16.12) Primary osteoarthritis of left hip Office Vis (more content not included)... [facility] 11-13-2024 History of Present illness Narrative Associated Order(s): Large Joint Arthro/Inj: L greater trochanteric bursa Post-Procedure Diagnose(s): Trochanteric bursitis of left hip Images from the original note were not included. SERVICE DATE: November 13, 2024 PCP: Otilia Lopez MD Subjective Patient ID: Dimitri is a 79 year old male. Chief Complaint: Patient presents with: Left Hip Pain: Referred by Dr. Lopez PAIN EVALUATION 11/11/2024 1551 11/13/2024 1301 Pain Level: -- -- 1-9 Pain Location: Hip-Left Hip-Left Description: Aching;Dull Dull;Aching;Radiating Duration Amount of Time: -- 5 Duration Units: Months Months Frequency: Continuous Continuous Intervention/Comfort measure: Reposition;Cold;Support surface Medication HPI Patient presents today with left hip pain x 5 months. He states he has had pain in the past dating back about 13 years ago. No specific mechanism of injury that he is aware of. He has pain that he points to the lateral hip and to the groin. He states he has pain when he stands and walks. He was taking meloxicam but he had issues with urinary tract bleeding so he had to stop it. Review of Systems ACTIVE PROBLEM LIST Hyperlipidemia Basal Cell Carcinoma Lumbosacral Pain Pneumothorax Nicotine use disorder, F17.2 Chronic Hypoxemic Respiratory Failure (Hcc) Pulmonary Emphysema, Unspecified Emphysema Type (Hcc) PAST MEDICAL HISTORY Diagnosis Date Basal cell cancer right ear Cataract right eye Diverticulosis of colon (without mention of hemorrhage) Glaucoma High cholesterol Hypertension Personal history of colonic polyps Pulmonary emphysema, unspecified emphysema type (HCC) 10/28/2024 Squamous cell carcinoma right forearm PAST SURGICAL HISTORY Procedure Laterality Date COLONOSCOPY FLX DX W/COLLJ SPEC WHEN PFRMD age 59 Colonoscopy COLONOSCOPY FLX DX W/COLLJ SPEC WHEN PFRMD 01/05/2012 repeat 5 years CYSTOSCOPY N/A 10/16/2024 [facility] cauterization PROSTATECTOMY;RADICAL RETROPUBIC REPAIR RETINAL DETACHMENT SCLERAL BUCKLING Scleral Buckle FAMILY HISTORY Problem Relation Age of Onset Heart Mother age 65 Diabetes Father age 89 Cancer Sister breast Social History Tobacco Use Smoking status: Former Current packs/day: 0.00 Average packs/day: 0.5 packs/day for 40.0 years (20.0 ttl pk-yrs) Types: Cigarettes Start date: 08/25/1982 Quit date: 08/25/2022 Years since quittin.2 Smokeless tobacco: Never Tobacco comments: Pt stopped smoking the day he was admitted into the hospital. Vaping Use Vaping status: Never Used Substance Use Topics Alcohol use: No Comment: rare Drug use: No ALLERGIES Allergen Reactions Anesthesia S/I-40 (* Other: See Comments With use of anesthesia knocks him out, doesn't need much per . MEDICATIONS: lovastatin 40 mg tablet Take 1 tablet by mouth daily at bedtime. TRELEGY ELLIPTA 200-62.5-25 mcg inhalation powder USE 1 INHALATION BY MOUTH ONCE DAILY AT THE SAME TIME EACH DAY DIRECTED sodium chloride (NEBUSAL) 3 % nebulizer solution Use 4 mL via nebulizer two times a day as needed for cough (to help thin secretions). docusate sodium (COLACE) 100 mg capsule once daily. guaiFENesin (MUCINEX) 600 mg 12 hr tablet Take 2 tablets by mouth two times a day. albuterol (PROVENTIL) 2.5 mg /3 mL (0.083 %) nebulizer solution Use 3 mL via nebulizer every 4 hours as needed for wheezing/shortness of breath. Use over 5-15minutes. fluticasone (FLONASE) 50 mcg/actuation nasal spray Use 1-2 Sprays in each nostril once daily. albuterol HFA (PROAIR HFA) 90 mcg/actuation inhaler Inhale 2 Puffs by mouth every 4 hours as needed for wheezing/shortness of breath. Take as directed OXYGEN, HOME THERAPY, 2 L/min by Nasal Cannula route continuous. vit A,C,C-Ethq-Dgmrus (PRESERVISION AREDS) 2,148 mcg-113 mg-45 mg-17.4mg tab Take 1 tablet by mouth twice daily. aspirin, enteric coated (ASPIRIN, ENTERIC COATED) 81 mg EC tablet Take 81 mg by mouth once daily. Indications: prevention of transient ischemic attack acetaminophen (TYLENOL) 500 mg tablet Take 2 tablets by mouth every 6 hours as needed for pain. Indications: pain Propylene Glycol-Glycerin 1-0.3 % drop Use in both eyes. TIMOLOL MALEATE OPHTHALMIC Use in eyes. Left eye Allergies, medications, past surgical history, family history and past medical history were reviewed per this encounter. Objective Ortho Exam 79-year-old male pleasant cooperative with exam no acute distress. Evaluation of the left hip shows pain with palpation over the greater trochanter and posterior aspect of the hip. There is also pain in the groin with flexion abduction external rotation and logroll. X-rays of the hip are reviewed with patient which showed severe arthritic change. Assessment/Plan ASSESSMENT Diagnosis (M70.62) Trochanteric bursitis of left hip (primary encounter diagnosis) (M25.552) Left hip pain Plan: CONSULT TO ORTHOPAEDICS (M16.12) Primary osteoarthritis of left hip Office Visit on 11/13/24 CONSULT TO ORTHOPAEDICS PLAN Pain appears to be coming from 2 locations. The hip joint and the trochanter. I offered a cortisone injection to the trochanteric bursa today to help with lateral hip pain but I recommend referral for consultation to discuss total hip replacement as well. Large Joint Arthro/Inj: L greater trochanteric bursa 11/13/2024 1:31 PM The procedure site was prepped in the usual sterile fashion. Site: L greater trochanteric bursa Medications: 6 mg betamethasone acetate-betamethasone sodium phosphate 6 mg/mL Anesthetics: 4 mL lidocaine (PF) 10 mg/mL (1 %); 4 mL BUPivacaine (PF) 0.5 % (5 mg/mL) Outcome: Tolerated well, no immediate complications Post-injection instructions were reviewed with the patient and the patient voiced understanding of these instructions. Informed Consent Consent Obtained: Verbal [place] Protocol SIGN IN TIME OUT Referral made to Dr. Sunny Sebastian for consultation to discuss total hip arthroplasty. FOLLOW-UP: No follow-ups on file. SIGNATURE: Ki Cook DO PATIENT NAME: Dimitri Painter DATE: November 13, 2024 TIME: 1:29 PM Patient presents with: Left Hip Pain: Referred by Dr. Jessica [facility] INTAKE FLOWSHEET DATA Risk Screening Do you have concerns about personal safety or safety in the home?: No Pain Pain Level: (1-9) Pain Location: Hip-Left Description: Dull, Aching, Radiating Duration Amount of Time: 5 Duration Units: Months Frequency: Continuous Intervention/Comfort measure: Medication Patient states he is having pain on the lateral aspect of his hip that radiates into his groin and buttock. States the pain can radiate down his leg as well. He was given Meloxicam for the pain in May and only dulled the pain. Taking Tylenol as needed for the pain and states it helps. X-rays done on 10/28/24. with patient today. documented in this encounter [facility] 11-13-2024 Note HNO ID: [id number] Author: ZAMZAM MATTSON MA Service: ? Author Type: Insulator Cutter And Former Type: Progress Notes Filed: 11/13/2024 14:08 Note Text: Patient presents with: Left Hip Pain: Referred by Dr. Jessica [facility]WARDS [facility] INTAKE [employer]OWS[employer] DATA Risk Screening Do you have concerns about personal safety or safety in the home?: No Pain Pain Level: (1-9) Pain Location: Hip-Left Description: Dull, Aching, Radiating Duration Amount of Time: 5 Duration Units: Months Frequency: Continuous Intervention/Comfort measure: Medication Patient states he is having pain on the lateral aspect of his hip that radiates into his groin and buttock. States the pain can radiate down his leg as well. He was given Meloxicam for the pain in May and only dulled the pain. Taking Tylenol as needed for the pain and states it helps. X-rays done on 10/28/24. with patient today. [facility] 10-29-2024 Instructions Patito Amaral MD - 10/29/2024 3:33 PM EST Use Mucinex twice daily COPD Plan: Use Trelegy once a day, everyday, even if you do not have symptoms. It is a long acting inhaler and does not quickly treat symptoms. It is meant to decrease the frequency you experience symptoms. Trelegy - 1 inhalation daily ---Instructional Video: https://www.marinanow/using-trel egy/index.html Use Albuterol (inhaler and/or nebulizer) as needed for symptoms only. This is a short acting inhaler and is mainly helpful at treating symptoms as they occur. Using it 15 minutes before exercise does help prevent some exercise induced symptoms in some people. Albuterol (Proair, Proventil, or Ventolin) MDI - 1-2 puffs every 6 hours as needed for wheezing or shortness of breath. You can also use 1-2 puffs ten minutes before exercise or exertion. Use with your spacer. ---Instructional video: https://www.lung.org/gezs-zenaxy-b nd-diseases/frwn-mxcclki-ndyryi/as ma/fqggzza-uxtshodmp-xcp-videos/ videos/jbk-ev-npf-y-oivbxrz-iaxt-i nhaler.html It is very important that you try to exercise and stay active everyday. If your muscles get weaker, you will feel more breathless with activity. Allergic Rhinitis Continue Claritin 10 mg daily. documented in this encounter [facility] 10-29-2024 History of Present illness Narrative Images from the original note were not included. [facility] Established patientStage [facility]IEF COMPLIANT follow-up HISTORY OF PRESENT ILLNESS Interval history 10/29/2024 Patient is here for follow-up visit. Last visit with Renetta Chery 05/09/2024 Today patient denies significant respiratory symptoms including shortness of breath, cough, wheezing or sputum production. He continues on Trelegy once daily. He rarely required to use albuterol rescue inhaler. He was recently admitted to [facility] for acute blood loss anemia in the setting of hematuria. Interval history 10/30/2023 Patient is here for follow-up visit. Today he denies significant respiratory symptoms including shortness of breath, cough, wheezing or sputum production. Since last visit he did not have any episodes of acute exacerbation requiring systemic steroid/antibiotics, ED visits or hospitalization. He is currently on ICS/LABA/LAMA (Trelegy) and albuterol as needed. He will rarely require to use his rescue inhaler. Today he is off continuous supplemental oxygen with O2 saturation 93%. He stated that he has been using his oxygen mostly with activity and exertion. Also for the last few weeks he has not been using nocturnal oxygen due to nasal dryness and epistaxis sometimes. Interval history 03/07/2023 Today patient continue to report improvement in his symptoms. He started pulmonary rehabilitation and already feels further improvement in his ability to do more activities. He continues on ICS/LABA/LAMA (Trelegy) and albuterol as needed. He will rarely require to use his rescue inhaler. He is on continuous supplemental oxygen, 2 L/min. Interval history 11/21/2022 Today patient reports significant improvement in his symptoms since he started Trelegy. He is able to do more activities with minimal shortness of breath. He denies significant cough or sputum production. He is currently on Trelegy and albuterol as needed. He did not require to use rescue inhaler frequently. He reports 11 pound weight gain. He continues on continuous supplemental oxygen, 2 L/min. He has not started pulmonary rehabilitation but has been on the waiting list to start soon. Initial history 09/28/2022 Dimitri Painter is a 77 year old male with past medical history significant for tobacco use disorder, hyperlipidemia and glaucoma who presents today for posthospitalization follow-up for emphysema and left pneumothorax. He initially presented to [facility] on 08/25/22 with chest pain and shortness of breath and was found to have left-sided pneumothorax. CT chest showed multiple blebs. He had a chest tube placed and has a persistent air leak. He was transferred to [facility] on 08/27/22 for assessment of his chest tube and possibly blebectomy versus pleurodesis. Sputum culture grew gram-negative cocci treated with Abx. CT surgery consulted. CT chest initially placed 08/25 for large lateral bleb with compressive atelectasis, Chest tube upsized by IR on 08/31, changed to ws 09/03, clamped 09/04 and removed on 09/05/2022 chest tube today, follow up post pull cxr did not show residual pneumothorax. Per CTS patient did not need pleurodesis at this point. Patient was discharged on 09/06/2022 with supplemental oxygen and albuterol inhaler Patient is on 2 L continuous supplemental oxygen, he reports normal O2 saturation at rest but his saturation dips down to nearly 80s or late 70s with activity. Also he still reports shortness of breath, episodes of cough and sputum production. He has history of tobacco use, more than [id number]. He did quit after this hospitalization. He has significant weight loss, per patient he lost 30+ pounds over the last year. He denies chest pain, fever, hemoptysis. REVIEW OF SYSTEMS Constitutional: Negative for appetite change, chills, diaphoresis and fever. HENT: Negative for dental problem, ear discharge, ear pain, facial swelling, nosebleeds. Respiratory: See HPI Cardiovascular: Negative for chest pain, palpitations and leg swelling. Gastrointestinal: Negative for abdominal distention, abdominal pain, anal bleeding, blood in stool, nausea and vomiting. Neurological: Negative for dizziness, seizures, speech difficulty and headaches. Psychiatric/Behavioral: Negative for confusion and hallucinations. PAST MEDICAL/SURGICAL/SOCIAL HISTORY PAST MEDICAL HISTORY Diagnosis Date Basal cell cancer right ear Cataract right eye Diverticulosis of colon (without mention of hemorrhage) Glaucoma High cholesterol Hypertension Personal history of colonic polyps Pulmonary emphysema, unspecified emphysema type (HCC) 10/28/2024 Squamous cell carcinoma right forearm PAST SURGICAL HISTORY Procedure Laterality Date COLONOSCOPY FLX DX W/COLLJ SPEC WHEN PFRMD age 59 Colonoscopy COLONOSCOPY FLX DX W/COLLJ SPEC WHEN PFRMD 01/05/2012 repeat 5 years CYSTOSCOPY N/A 10/16/2024 [facility] cauterization PROSTATECTOMY;RADICAL RETROPUBIC REPAIR RETINAL DETACHMENT SCLERAL BUCKLING Scleral Buckle FAMILY HISTORY Problem Relation Age of Onset Heart Mother age 65 Diabetes Father age 89 Cancer Sister breast Social History Tobacco Use Smoking status: Former Current packs/day: 0.00 Average packs/day: 0.5 packs/day for 40.0 years (20.0 ttl pk-yrs) Types: Cigarettes Start date: 08/25/1982 Quit date: 08/25/2022 Years since quittin.1 Smokeless tobacco: Never Tobacco comments: Pt stopped smoking the day he was admitted into the hospital. Vaping Use Vaping status: Never Used Substance Use Topics Alcohol use: No Comment: rare Drug use: No MEDICATIONS AND ALLERGIES lovastatin 40 mg tablet Take 1 tablet by mouth daily at bedtime. TRELEGY ELLIPTA 200-62.5-25 mcg inhalation powder USE 1 INHALATION BY MOUTH ONCE DAILY AT THE SAME TIME EACH DAY DIRECTED sodium chloride (NEBUSAL) 3 % nebulizer solution Use 4 mL via nebulizer two times a day as needed for cough (to help thin secretions). docusate sodium (COLACE) 100 mg capsule once daily. guaiFENesin (MUCINEX) 600 mg 12 hr tablet Take 2 tablets by mouth two times a day. albuterol (PROVENTIL) 2.5 mg /3 mL (0.083 %) nebulizer solution Use 3 mL via nebulizer every 4 hours as needed for wheezing/shortness of breath. Use over 5-15minutes. fluticasone (FLONASE) 50 mcg/actuation nasal spray Use 1-2 Sprays in each nostril once daily. albuterol HFA (PROAIR HFA) 90 mcg/actuation inhaler Inhale 2 Puffs by mouth every 4 hours as needed for wheezing/shortness of breath. Take as directed OXYGEN, HOME THERAPY, 2 L/min by Nasal Cannula route continuous. vit A,C,K-Tukq-Mdqvrt (PRESERVISION AREDS) 2,148 mcg-113 mg-45 mg-17.4mg tab Take 1 tablet by mouth twice daily. aspirin, enteric coated (ASPIRIN, ENTERIC COATED) 81 mg EC tablet Take 81 mg by mouth once daily. Indications: prevention of transient ischemic attack acetaminophen (TYLENOL) 500 mg tablet Take 2 tablets by mouth every 6 hours as needed for pain. Indications: pain Propylene Glycol-Glycerin 1-0.3 % drop Use in both eyes. TIMOLOL MALEATE OPHTHALMIC Use in eyes. Left eye ALLERGIES Allergen Reactions Anesthesia S/I-40 (* Other: See Comments With use of anesthesia knocks him out, doesn't need much per . PHYSICAL EXAM BP 108/77 Pulse 93 Temp 98.3 Resp 16 Ht 5' 4.724 (1.64m) Wt 121 lb 14.6 oz (55.3kg) SpO2 96% BMI 20.46 kg/(m^2). GEN: No acute distress. HEAD: Normocephalic, atraumatic. CV: RRR, no rubs. BP as documented RESP: No wheezing. No crackles. EXTR: No clubbing, cyanosis, or edema. NEURO: Alert and oriented X 3. Speech intact. PSYCH: Mood normal. Behavior normal. Thought content normal. DIAGNOSTIC REVIEW I personally reviewed and interpreted the labs, PFTs and radiographs LABs WBC (k/uL) Date Value 12/09/2022 6.76 RBC (m/uL) Date Value 12/09/2022 4.60 Hemoglobin (g/dL) Date Value 12/09/2022 15.1 Hematocrit (%) Date Value 12/09/2022 47.3 MCV (fL) Date Value 12/09/2022 102.8 (H) MCH (pg) Date Value 12/09/2022 32.8 MCHC (g/dL) Date Value 12/09/2022 31.9 RDW-CV (%) Date Value 12/09/2022 13.4 Platelet Count (k/uL) Date Value 12/09/2022 171 MPV (fL) Date Value 12/09/2022 10.6 Glucose (mg/dL) Date Value 06/24/2024 88 BUN (mg/dL) Date Value 06/24/2024 14 Creatinine (mg/dL) Date Value 06/24/2024 0.67 (L) Sodium (mmol/L) Date Value 06/24/2024 138 Potassium (mmol/L) Date Value 06/24/2024 4.4 Chloride (mmol/L) Date Value 06/24/2024 103 CO2 (mmol/L) Date Value 06/24/2024 26 Protein, Total (g/dL) Date Value 06/24/2024 7.5 Albumin (g/dL) Date Value 06/24/2024 4.0 Calcium, Total (mg/dL) Date Value 06/24/2024 9.2 Alkaline Phosphatase (U/L) Date Value 06/24/2024 87 Bilirubin, Total (mg/dL) Date Value 06/24/2024 0.6 AST (U/L) Date Value 06/24/2024 24 ALT (U/L) Date Value 06/24/2024 11 Cholesterol, Total (mg/dL) Date Value 06/24/2024 166 Triglyceride (mg/dL) Date Value 06/24/2024 63 PFT: PFTs 10/29/2024 Spirometry indicates moderate obstruction. Elevated lung volumes (RV and/or RV/TLC) indicate air trapping. The diffusing capacity (uncorrected for hemoglobin) is reduced. The reduced kCO (DLCO/VA) reflects an alteration of the normal transfer/diffusion of CO from the alveolar regions to the blood. Clinical correlation recommended. Pred LLN ULN Actual %Pred SPIROMETRY FVC (L) 3.06 2.26 3.88 3.67 119 FEV1 (L) 2.29 1.65 2.90 1.18 51 FEV1/FVC 0.77 0.62 0.88 0.32 41 FEF25 (L/sec) 0.90 FEF50 (L/sec) 2.76 0.64 4.89 0.36 13 FEF75 (L/sec) 0.42 0.14 1.20 0.16 37 PQN03-24 (L/sec) 1.77 0.67 3.39 0.31 17 FEF Max (L/sec) 6.05 4.07 8.03 3.16 52 FIVC (L) 3.75 FIF50 (L/sec) 4.72 FIF Max (L/sec) 4.78 Time (sec) 16.23 SHWETA (L) 0.05 Time To FEF Max (sec) 0.07 LUNG VOLUMES SVC (L) 3.06 2.26 3.88 3.75 122 IC (L) 2.04 1.79 87 ERV (L) 1.02 1.95 191 FRC (Pleth) (L) 3.19 2.01 4.37 5.93 185 RV (Pleth) (L) 2.37 1.76 2.99 4.19 176 TLC (Pleth) (L) 5.99 4.69 7.30 7.90 131 RV/TLC (Pleth) (%) 39 32 46 53 136 DIFFUSION DLCOunc (ml/min/mmHg) 21.57 11.64 31.51 9.28 43 DLunc/VA 0.04 0.03 0.05 0.02 46 VA (L) 5.80 4.44 7.17 5.10 87 BHT (sec) 11.52 IVC (L) 3.66 PFT 10/21/2022 Spirometry indicates very severe obstruction. There is no significant bronchodilator response. Clinical improvement following bronchodilator therapy may occur with limited spirometric improvement. The TLC is normal. The RV and RV/TLC are elevated indicating air trapping. The diffusing capacity is moderately reduced. The presence of a reduced lung diffusing capacity - that does not normalize when measured independent of alveolar volume (kCO) suggests a parenchymal or pulmonary vascular disorder. No comparison studies. Pre-Bronch Post-Bronch Pred Actual %Pred Actual %Chng SPIROMETRY FVC (L) 3.69 2.60 70 2.87 10 FEV1 (L) 2.76 0.99 35 0.99 FEV1/FVC (%) 75 38 50 34 -9 LUNG VOLUMES SVC (L) 4.14 2.12 51 IC (L) 3.08 1.16 37 ERV (L) 1.06 0.94 88 TGV (L) 3.56 6.47 181 RV (Pleth) (L) 2.51 5.51 220 TLC (Pleth) (L) 6.65 7.63 114 RV/TLC (Pleth) (%) 38 72 189 DIFFUSION DLCOunc (ml/min/mmHg) 21.22 10.57 49 DL/VA (ml/min/mmHg/L) 3.80 2.21 58 VA (L) 6.43 4.79 74 BHT (sec) 11.93 IVC (L) 1.91 TLC (SB) (L) 4.94 Oxymetry with Ambulation 11/02/2022 RADIOLOGY: CXR: XR CHEST 2V FRONTAL/LAT Result Date: 05/28/2024 IMPRESSION: Significant underlying emphysema. Atelectasis or early infiltrate at the right base Due to the presence of a significant pneumothorax on the left on prior CT scans, Recommend CT chest for complete evaluation currently. ACTIONABLE RESULT: FOLLOW-UP Acuity: Actionable Findings: Thoracic-Other Routing Code: CT_1 Recommendation: Unlisted Recommendation (see report) Time Frame: At the discretion of the clinical team. COMMUNICATION: Results will be communicated with the ordering provider via [employer] staff message or phone message by [employer] within 2 business days of report finalization. --END OF FINDING-- Features Editor: ANNEMARIE Transcribe Date/Time: May 28 2024 1:48P Dictated by : ROM BUCK MD This examination was interpreted and the report reviewed and electronically signed by: ROM BUCK MD on May 28 2024 1:52PM EST CT Chest: Last CT/CTA Chest/Lungs CT CHEST WO IVCON Exam End: 08/12/2024 3:55 PM (Final result) Narrative: * * *Final Report* * * DATE OF EXAM: Aug 12 2024 3:55PM [facility] [id number] - CT CHEST WO IVCON / PROCEDURE REASON: Abnormal CT of the chest * * * * Physician Interpretation * * * * EXAMINATION: CHEST CT WITHOUT CONTRAST CLINICAL HISTORY: Pneumothorax. Abnormal x-ray. Technique: Spiral CT acquisition of the chest from the thoracic inlet to the upper abdomen without contrast. MQ: [id number] CT Radiation dose: Integrated Dose-length product (DLP) for this visit = 130 mGy*cm CT Dose Reduction Employed: Automated exposure control(AEC) and iterative recon Comparison: CT chest on 06/03/2024 RESULT: Limitations: None. Lines, tubes, and devices: None. Lung parenchyma and airways: The central airways are patent. Noted is interval decrease in size or resolution of multiple nodules in the right lower lobe. A residual nodule noted measuring 1.4 x 1.1 cm, series 7 image 189, previously 2.3 x 1.7 cm. Other smaller nodules are not clearly visualized on the current study. No definite new nodules seen. There are parenchymal bands in the bilateral lower lobes. Irregular reticular density/scarring noted in the left upper lobe, series 7 images 69. The bilateral lungs are remarkable for severe emphysema. Stable biapical scarring and subpleural opacities. Pleural space: No pleural effusion. No pleural thickening. Lower neck, lymph nodes, and mediastinum: The imaged thyroid gland is normal. No lymphadenopathy in the supraclavicular, axillary, mediastinal, or hilar regions. Heart, pericardium, and thoracic vessels: The thoracic aorta and main pulmonary artery are normal in caliber. The cardiac chambers are normal in size. Punctate coronary artery atherosclerotic calcifications are noted, although the study is not optimized for coronary assessment. No pericardial effusion or thickening. Bones and soft tissues: There are degenerative changes in the spine, with multilevel disc space narrowing. No destructive bone lesion. Chest wall is unremarkable. Upper abdomen: Limited study through the upper abdomen demonstrates no interval changes Localizer images: No additional findings. Impression: IMPRESSION: Interval decrease in size or resolution of multiple nodules in the right lower lobe. No new nodules identified. Stable irregular reticular densities/scarring in the left upper lobe. Severe emphysema. Features Editor: ANNEMARIE Transcribe Date/Time: Aug 16 2024 8:26A Dictated by : KIRILL MUNIZ MD This examination was interpreted and the report reviewed and electronically signed by: KIRILL MUNIZ MD on Aug 16 2024 2:06PM EST Chest CT 06/03/24 IMPRESSION: 1. There are some nodular opacities in the posterior right lower lobe abutting the pleural surface, possibly due to mucous plugging and atelectasis. Short-term follow-up study is recommended in 3 months to assess for any change. 2. There are multiple clustered nodules in the posterior right lower lobe which are most likely infectious/inflammatory. 3. Centrilobular emphysema. Scarring in the mid left lung. OTHER TESTS: ECHO No results found for this or any previous visit (from the past 70416 hours). VACCINATION: Immunization History Administered Date(s) Administered COVID-19 original vaccine, age 12+ yr, monovalent ([employer] - PURPLE TOP) 11/05/2020 11/26/2020 08/12/2021 influenza (HD-IIV3) vaccine, age 65+ yr, high dose, trivalent, PF (FLUZONE HIGH-DOSE) 05/26/2016 06/27/2024 influenza (HD-IIV4) vaccine, age 65+ yr, high dose, quadrivalent, PF (FLUZONE HIGH-DOSE) 07/02/2021 06/20/2023 influenza vaccine, unspecified formulation 06/22/2011 07/09/2012 pneumococcal conjugate (PCV13) vaccine, 13 valent (PREVNAR 13) 05/26/2016 pneumococcal conjugate (PCV20) vaccine, 20 valent (PREVNAR 20) 05/09/2024 pneumococcal polysaccharide (PPV23) vaccine, 23 valent (PNEUMOVAX 23) 08/28/2009 tetanus diphtheria (Td) vaccine, age 7+ yr, 5 Lf tetanus, PF (TENIVAC) 11/19/2018 ASSESSMENT AND PLAN 79 year old male with past medical history significant for tobacco use disorder, hyperlipidemia and glaucoma who presents today for follow-up for : 1. Pulmonary emphysema, unspecified emphysema type (HCC) - ICD9: 492.8, ICD10: J43.9 (primary diagnosis) 2. Nocturnal hypoxia - ICD9: 327.24, ICD10: G47.34 3. History of pneumothorax - ICD9: V12.69, ICD10: Z87.09 4. Former smoker - ICD9: V15.82, ICD10: Z87.891 5. Chronic rhinitis - ICD9: 472.0, ICD10: J31.0 #Emphysema -Emphysematous changes on chest imaging -PFTs 10/29/24: Spirometry indicated moderate obstruction (FEV1 51%). Elevated RV and RV/TLC. Reduced DLCO -Currently well-controlled with Trelegy Plan: Continue Trelegy Continue albuterol as needed # Nocturnal hypoxia -Patient is compliant and benefits from supplemental oxygen with all sleep. #History of Left-sided pneumothorax -Spontaneous left-sided pneumothorax likely in the setting of subpleural blebs -S/p chest tube placement and removal with lung reexpansion -Repeat CT chest showing persistent Pneumothorax -CXR 03/01/23: Extensive bilateral pulmonary emphysema with bullous disease in the left lower lung. -Chest CT scan 08/12/24: No pneumothorax #Former tobacco use -Significant smoking history, more than 40 pack-year -Quit 07/2023 Plan: Continue smoking cessation #Chronic Rhinitis -Currently on Claritin Plan: Claritin 10 mg daily Patient's questions and concerns were addressed prior to discharge today. Patient verbalized understanding and is agreeable with the plan. Objective testing was reviewed with this visit. Followup discussed. Return in about 6 months (around 05/01/2025). Patito Amaral MD Staff physician Pulmonary and Critical Care Medicine Pager / phone [phone] Medical Decision Making: Level: 4 - Moderate documented in this encounter [facility] 10-29-2024 Note HNO ID: [id number] Author: PATITO AMARAL MD Service: ? Author Type: Physician Type: Progress Notes Filed: 11/01/2024 05:50 Note Text: [facility] Established patientStage CHIEF COMPLIANT follow-up HISTORY OF PRESENT ILLNESS Interval history 10/29/2024 Patient is here for follow-up visit. Last visit with Renetta Chery 05/09/2024 Today patient denies significant respiratory symptoms including shortness of breath, cough, wheezing or sputum production. He continues on Trelegy once daily. He rarely required to use albuterol rescue inhaler. He was recently admitted to [facility] for acute blood loss anemia in the setting of hematuria. Interval history 10/30/2023 Patient is here for follow-up visit. Today he denies significant respiratory symptoms including shortness of breath, cough, wheezing or sputum production. Since last visit he did not have any episodes of acute exacerbation requiring systemic steroid/antibiotics, ED visits or hospitalization. He is currently on ICS/LABA/LAMA (Trelegy) and albuterol as needed. He will rarely require to use his rescue inhaler. Today he is off continuous supplemental oxygen with O2 saturation 93%. He stated that he has been using his oxygen mostly with activity and exertion. Also for the last few weeks he has not been using nocturnal oxygen due to nasal dryness and epistaxis sometimes. Interval history 03/07/2023 Today patient continue to report improvement in his symptoms. He started pulmonary rehabilitation and already feels further improvement in his ability to do more activities. He continues on ICS/LABA/LAMA (Trelegy) and albuterol as needed. He will rarely require to use his rescue inhaler. He is on continuous supplemental oxygen, 2 L/min. Interval history 11/21/2022 Today patient reports significant improvement in his symptoms since he started Trelegy. He is able to do more activities with minimal shortness of breath. He denies significant cough or sputum production. He is currently on Trelegy and albuterol as needed. He did not require to use rescue inhaler frequently. He reports 11 pound weight gain. He continues on continuous supplemental oxygen, 2 L/min. He has not started pulmonary rehabilitation but has been on the waiting list to start soon. Initial history 09/28/2022 Dimitri Painter is a 77 year old male with past medical history significant for tobacco use disorder, hyperlipidemia and glaucoma who presents today for posthospitalization follow-up for emphysema and left pneumothorax. He initially presented to [facility] on 08/25/22 with chest pain and shortness of breath and was found to have left-sided pneumothorax. CT chest showed multiple blebs. He had a chest tube placed and has a persistent air leak. He was transferred to [facility] on 08/27/22 for assessment of his chest tube and possibly blebectomy versus pleurodesis. Sputum culture grew gram-negative cocci treated with Abx. CT surgery consulted. CT chest initially placed 08/25 for large lateral bleb with compressive atelectasis, Chest tube upsized by IR on 08/31, changed to ws 09/03, clamped 09/04 and removed on 09/05/2022 chest tube today, follow up post pull cxr did not show residual pneumothorax. Per CTS patient did not need pleurodesis at this point. Patient was discharged on 09/06/2022 with supplemental oxygen and albuterol inhaler Patient is on 2 L continuous supplemental oxygen, he reports normal O2 saturation at rest but his saturation dips down to nearly 80s or late 70s with activity. Also he still reports shortness of breath, episodes of cough and sputum production. He has history of tobacco use, more than [id number]. He did quit after this hospitalization. He has significant weight loss, per patient he lost 30+ pounds over the last year. He denies chest pain, fever, hemoptysis. REVIEW OF SYSTEMS Constitutional: Negative for appetite change, chills, diaphoresis and fever. HENT: Negative for dental problem, ear discharge, ear pain, facial swelling, nosebleeds. Respiratory: See HPI Cardiovascular: Negative for chest pain, palpitations and leg swelling. Gastrointestinal: Negative for abdominal distention, abdominal pain, anal bleeding, blood in stool, nausea and vomiting. Neurological: Negative for dizziness, seizures, speech difficulty and headaches. Psychiatric/Behavioral: Negative for confusion and hallucinations. PAST MEDICAL/SURGICAL/SOCIAL HISTORY PAST MEDICAL HISTORY Diagnosis Date Basal cell cancer right ear Cataract right eye Diverticulosis of colon (without mention of hemorrhage) Glaucoma High cholesterol Hypertension Personal history of colonic polyps Pulmonary emphysema, unspecified emphysema type (HCC) 10/28/2024 Squamous cell carcinoma right forearm PAST SURGICAL HISTORY Procedure Laterality Date COLONOSCOPY FLX DX W/COLLJ SPEC WHEN PFRMD age 59 Colon (more content not included)... [facility] 10-29-2024 Note HNO ID: [id number] Author: ?, ?, ? Service: ? Author Type: ? Type: Procedures Filed: 10/29/2024 14:44 Note Text: RESPIRATORY THERAPY OXIMETRY WITH AMBULATION Oximetry with Ambulation Test for This Encounter O2 Device O2 Adapter NC O2 Flow SpO2% HR Activity Ft Walked (ft) Time (min) Avg Speed (MPH) R/A 100 85 Resting R/A 97 105 Walking, usual pace 215 3 0.81 General Information Pulse Oximetry Site Total Time Spent Walking Assistance/O2 Supply Carrier Forehead 30 Wheeled Walker NAME: Norma Damon PATIENT NAME: Dimitri Painter DATE: October 29, 2024 TIME: 2:44 PM Comment: pt unable to walk at faster pace [facility] 10-29-2024 Procedure note Associated Ord er(s): OXIMETRY WITH AMBULATION RESPIRATORY THERAPY OXIMETRY WITH AMBULATION Oximetry with Ambulation Test for This Encounter O2 Device O2 Adapter NC O2 Flow SpO2% HR Activity Ft Walked (ft) Time (min) Avg Speed (MPH) R/A 100 85 Resting R/A 97 105 Walking, usual pace 215 3 0.81 General Information Pulse Oximetry Site Total Time Spent Walking Assistance/O2 Supply Carrier Forehead 30 Wheeled Walker NAME: Norma Damon PATIENT NAME: Dimitri Painter DATE: October 29, 2024 TIME: 2:44 PM Comment: pt unable to walk at faster pace [facility] 10-29-2024 Procedure note Associated Ord er(s): OXIMETRY WITH AMBULATION RESPIRATORY THERAPY OXIMETRY WITH AMBULATION Oximetry with Ambulation Test for This Encounter O2 Device O2 Adapter NC O2 Flow SpO2% HR Activity Ft Walked (ft) Time (min) Avg Speed (MPH) R/A 100 85 Resting R/A 97 105 Walking, usual pace 215 3 0.81 General Information Pulse Oximetry Site Total Time Spent Walking Assistance/O2 Supply Carrier Forehead 30 Wheeled Walker NAME: Norma Damon PATIENT NAME: Dimitri Painter DATE: October 29, 2024 TIME: 2:44 PM Comment: pt unable to walk at faster pace documented in this encounter [facility] 10-29-2024 Note HNO ID: [id number] Author: ?, ?, ? Service: ? Author Type: ? Type: Progress Notes Filed: 10/29/2024 14:32 Note Text: PULM FUNCTION: Provider: Patito Amaral MD Spirometry: 1 DLCO: 1 LV - Box: 1 Oximetry - Ambulation: 1 [facility] 10-29-2024 History of Present illness Narrative PULM FUNCTION: Provider: Patito Amaral MD Spirometry: 1 DLCO: 1 LV - Box: 1 Oximetry - Ambulation: 1 documented in this encounter [facility] 10-28-2024 Progress note Formatting of t his note might be different from the original. [employer] message sent to pt notifying him of results and recommendations below from Provider. Pt scheduled with Ortho on 11/13/24, advised to keep appt as scheduled. If questions to contact the office. Tatiana Earl MA [facility] 10-28-2024 Miscellaneous Notes [employer] message sent to pt notifying him of results and recommendations below from Provider. Pt scheduled with Ortho on 11/13/24, advised to keep appt as scheduled. If questions to contact the office. Tatiana Earl MA Please notify patient that his hip Xray does show severe degenerative changes in the left hip. So I think Orthopedic consult is the best next step, as we discussed. Otilia Lopez MD documented in this encounter [facility] 10-28-2024 Telephone encounter Note Please notify patient that his hip Xray does show severe degenerative changes in the left hip. So I think Orthopedic consult is the best next step, as we discussed. Otilia oLpez MD [facility] 10-28-2024 History of Present illness Narrative Radiology Service Progress Note PATIENT NAME: Dimitri Painter DATE OF SERVICE: October 28, 2024 TIME: 2:18 PM PATIENT IDENTITY VERIFICATION COMPLETED USING TWO (2) IDENTIFIERS: Name and Date of confirmed by patient verbally. FALL SCREENING: Has the patient had 2 falls in the last year or 1 fall with injury or currently using an Ambulatory Assistive Device (Walker, Cane, Wheelchair, Crutches, etc.)? Yes, Patient High Risk for Falls What interventions were put in place to prevent falls during this visit? Instructed Patient to Call for Help if Needed, Offered Assistance with Transfers/Clothing, Instructed Patient to Remain Seated (Not on Exam Table) Until Exam, and Increased Observations by Caregivers PATIENT GENDER DATA: Assigned male at PATIENT RELEVANT IMPLANT DATA REVIEWED: Yes PATIENT PRESENTS WITH AN IMPLANTABLE OR ATTACHED SUSTAINABILITY PROJECT COORDINATOR: No RADIOLOGY DEPARTMENT: General X-ray: Exam(s) Completed: Pelvis X-Ray: Pelvis with Hip Left PERIPHERAL IV DATA: Not applicable SIGNED BY: RT Sonia(Jovanny) October 28, 2024 2:18 PM documented in this encounter [facility] 10-28-2024 Note HNO ID: [id number] Author: DANIELLE WARD RT(R) Service: ? Author Type: Solar System Installer Type: Progress Notes Filed: 10/28/2024 14:18 Note Text: Radiology Service Progress Note PATIENT NAME: Dimitri Painter DATE OF SERVICE: October 28, 2024 TIME: 2:18 PM PATIENT IDENTITY VERIFICATION COMPLETED USING TWO (2) IDENTIFIERS: Name and Date of confirmed by patient verbally. FALL SCREENING: Has the patient had 2 falls in the last year or 1 fall with injury or currently using an Ambulatory Assistive Device (Walker, Cane, Wheelchair, Crutches, etc.)? Yes, Patient High Risk for Falls What interventions were put in place to prevent falls during this visit? Instructed Patient to Call for Help if Needed, Offered Assistance with Transfers/Clothing, Instructed Patient to Remain Seated (Not on Exam Table) Until Exam, and Increased Observations by Caregivers PATIENT GENDER DATA: Assigned male at PATIENT RELEVANT IMPLANT DATA REVIEWED: Yes PATIENT PRESENTS WITH AN IMPLANTABLE OR ATTACHED SUSTAINABILITY PROJECT COORDINATOR: No RADIOLOGY DEPARTMENT: General X-ray: Exam(s) Completed: Pelvis X-Ray: Pelvis with Hip Left PERIPHERAL IV DATA: Not applicable SIGNED BY: Danielle Ward, RT(R) October 28, 2024 2:18 PM [facility] 10-28-2024 History of Present illness Narrative Chief Complaint Patient presents with: Left Hip Pain HPI Dimitri Painter is a 79 year old male who presents here today for hip pain. Pt in wheelchair today, here with his . Reevaluate the left hip pain which pt originally complained about in May but did not want to proceed with any testing or referrals. He was treated with Mobic 15 mg daily and if not improving in 2-4 weeks f/u to consider xray and or PT and or Ortho referral. Pt reports that Mobic medication has not helped as he still has pain, so he d/c medication due to recent dx of anemia. States pain has slightly increased from his previous visit. Has constant pain, especially when laying down and trying to get comfortable at night. Started using a cane to help keep him stable. Is able to walk but he does have a limp. When sitting pain is minimal, but if sitting for a prolonged period of time the pain does increase in aching and he will have to shift positions. Denies becoming off balance and falling due to his pain. Hx of bursitis to the left hip back in 2012, has done PT for this in past and been treated with Naprosyn. Reports pain is in the same hip, but is unable to recall if the pain he's experiencing is currently the same he's having. Resp status stable; follows with [facility] - Asking about lab results. Was dx with anemia in the hospital. States he's now able to walk without becoming short of breath. Was found to be bleeding in his bladder due to his history of radiation treatment for prostate cancer. Following with Dr Braun. Was in [facility] from 10/14/24 - 10/17/24. Has an appt with Dr. Braun on 11/14/24. Discharge Diagnosis (1) Symptomatic anemia: Status: Acute Code(s): D64.9 - Anemia, unspecified (2) Gross hematuria: Status: Acute Code(s): R31.0 - Gross hematuria (3) Painless hematuria: Status: Acute Code(s): R31.9 - Hematuria, unspecifie Chief Complaint: Dark urine, fatigue, SOB HPI Narrative DIMITRI PAINTER, is a 79-year-old male history of COPD, prostate cancer, former smoker presented [facility] ED 10/14/2024 due to fatigue, weight loss, poor appetite and increased shortness of breath. Has lost 9 pounds in 3 months and has no appetite or energy. He does wear oxygen at night because he is concerned he may have sleep apnea but never underwent formal testing. Has had dark-colored urine for 3 to 4 weeks and also has had a chronic left hip painsuspected to be due to bursitis and has been placed on NSAIDs. In the ED heart rate low 100s with initial blood pressure of 105/67 respiratory rate of 20. Pulse ox initially 79% but is then documented that was a poor waveform. Hemoglobin 4.8 with his last hemoglobin 14.5 on 01/06/2024. BMP with slightly elevated BUN of 21 otherwise within normal limits and liver profile within normal limits. Lactic acid 2.2. Patient typed and crossed for [address] abdomen pelvis obtained which showed dilated pancreatic duct with no suspicious mass, hepatic steatosis with hepatic cysts, significant stool burden, cholelithiasis and celiac artery pseudoaneurysm. Patient's UA with gross hematuria. Urology contacted and recommended admission. Hospitalist contacted for admission, patient evaluated at bedside and reports as above with the several weeks of fatigue, decreasing weight with poor p.o. intake and increasingshortness of breath. Patient reports his urine has been dark for 3 to 4 weeks and is intermittently darker than others. He does intermittently get constipated but reports he had a normal bowel movement earlier today. Occasionally gets a tight feeling in his chest over the past couple weeks as well but not presently having this concern. Currently patient receiving blood and reports he feels about the same as when he came in. Denies any nausea or vomiting, no abdominal pain, reports his only pain is some left hip pain for which she previously was taking meloxicam but did not find it helpful so he is no longer taking this. Patient denies any dark or bloody stool. Additionally patient reports he has been able to urinate well, did pass a clot earlier but otherwise has been feeling like he is emptying his bladder well, also denies anysuprapubic tenderness. Past medical history, appointments, medications, allergies reviewed. Previous Medical History PAST MEDICAL HISTORY Diagnosis Date Basal cell cancer right ear Cataract right eye Diverticulosis of colon (without mention of hemorrhage) Glaucoma High cholesterol Hypertension Personal history of colonic polyps Squamous cell carcinoma right forearm Previous Surgical History PAST SURGICAL HISTORY Procedure Laterality Date COLONOSCOPY FLX DX W/COLLJ SPEC WHEN PFRMD age 59 Colonoscopy COLONOSCOPY FLX DX W/COLLJ SPEC WHEN PFRMD 01/05/12 repeat 5 years PROSTATECTOMY;RADICAL RETROPUBIC REPAIR RETINAL DETACHMENT SCLERAL BUCKLING Scleral Buckle Family History FAMILY HISTORY Problem Relation Age of Onset Heart Mother age 65 Diabetes Father age 89 Cancer Sister breast Patient Allergies ALLERGIES Allergen Reactions Anesthesia S/I-40 (* Other: See Comments With use of anesthesia knocks him out, doesn't need much per . Current Medications Current Outpatient Medications on File Prior to Visit Medication Sig meloxicam (MOBIC) 15 mg tablet Take 1 tablet by mouth once daily. With food. lovastatin 40 mg tablet Take 1 tablet by mouth daily at bedtime. TRELEGY ELLIPTA 200-62.5-25 mcg inhalation powder USE 1 INHALATION BY MOUTH ONCE DAILY AT THE SAME TIME EACH DAY DIRECTED sodium chloride (NEBUSAL) 3 % nebulizer solution Use 4 mL via nebulizer two times a day as needed for cough (to help thin secretions). docusate sodium (COLACE) 100 mg capsule once daily. guaiFENesin (MUCINEX) 600 mg 12 hr tablet Take 2 tablets by mouth two times a day. albuterol (PROVENTIL) 2.5 mg /3 mL (0.083 %) nebulizer solution Use 3 mL via nebulizer every 4 hours as needed for wheezing/shortness of breath. Use over 5-15minutes. fluticasone (FLONASE) 50 mcg/actuation nasal spray Use 1-2 Sprays in each nostril once daily. albuterol HFA (PROAIR HFA) 90 mcg/actuation inhaler Inhale 2 Puffs by mouth every 4 hours as needed for wheezing/shortness of breath. Take as directed OXYGEN, HOME THERAPY, 2 L/min by Nasal Cannula route continuous. vit A,C,V-Mfnz-Bynfqq (PRESERVISION AREDS) 2,148 mcg-113 mg-45 mg-17.4mg tab Take 1 tablet by mouth twice daily. aspirin, enteric coated (ASPIRIN, ENTERIC COATED) 81 mg EC tablet Take 81 mg by mouth once daily. Indications: prevention of transient ischemic attack acetaminophen (TYLENOL) 500 mg tablet Take 2 tablets by mouth every 6 hours as needed for pain. Indications: pain Propylene Glycol-Glycerin 1-0.3 % drop Use in both eyes. TIMOLOL MALEATE OPHTHALMIC Use in eyes. Left eye No current facility-administered medications on file prior to visit. Social History Social History Tobacco Use Smoking status: Former Current packs/day: 0.00 Average packs/day: 0.5 packs/day for 40.0 years (20.0 ttl pk-yrs) Types: Cigarettes Start date: 08/25/1982 Quit date: 08/25/2022 Years since quittin.1 Smokeless tobacco: Never Tobacco comments: Pt stopped smoking the day he was admitted into the hospital. Vaping Use Vaping status: Never Used Substance Use Topics Alcohol use: No Comment: rare Drug use: No EXAM: BP 116/70 (BP Site: Left Arm, BP Position: Sitting, BP Cuff Size: Regular Adult) Pulse 80 Resp 18 Wt 54.6 kg (120 lb 5.9 oz) BMI 20.34 kg/m General Appearance: Well appearing, alert, in no acute distress, well-hydrated, well nourished.. Extremities: indicates pin in left groin area, worse with any rotation of left hip. Health Maintenance List Shingrix Vaccine(1 of 2) Never done DTaP,Tdap,Td Vaccine(1 - Tdap) due on 11/20/2018 RSV Vaccine(1 - 1-dose 75+ series) Never done Covid-19 Vaccine(4 - 2023- season) due on 04/28/2024 Advance Directive Discussion due on 08/28/2024 Depression Screening due on 12/20/2024 Anxiety Screening due on 12/20/2024 Annual PCP Team Chronic Disease Visit due on 06/27/2025 Diabetes Screening due on 06/24/2027 Spirometry Completed Influenza Vaccine Completed Pneumococcal Vaccine: 50+ Completed Colorectal Cancer Screening Discontinued Data reviewed No visits with results within 2 Month(s) from this visit. Latest known visit with results is: Appointment on 06/24/2024 Component Date Value Protein, Total 06/24/2024 7.5 Albumin 06/24/2024 4.0 Calcium, Total 06/24/2024 9.2 Bilirubin, Total 06/24/2024 0.6 Alkaline Phosphatase 06/24/2024 87 AST 06/24/2024 24 ALT 06/24/2024 11 Glucose 06/24/2024 88 BUN 06/24/2024 14 Creatinine 06/24/2024 0.67 (L) Sodium 06/24/2024 138 Potassium 06/24/2024 4.4 Chloride 06/24/2024 103 CO2 06/24/2024 26 Anion Gap 06/24/2024 9 Estimated Glomerular Rohith* 06/24/2024 95 Cholesterol, Total 06/24/2024 166 Triglyceride 06/24/2024 63 HDL Cholesterol 06/24/2024 51 Non HDL Cholesterol 06/24/2024 115 Fasting Time 06/24/2024 12 VLDL Cholesterol 06/24/2024 13 TC:HDL Ratio 06/24/2024 3.25 LDL Cholesterol 06/24/2024 102 (H) LDL:HDL Ratio 06/24/2024 2.00 PSA 06/24/2024 0.12 ASSESSMENT/PLAN: 1. Left hip pain - ICD9: 719.45, ICD10: M25.552 (primary diagnosis) Probable OA; will check XR and refer to Ortho; use tylenol for pain Avoid NSAIDS due to his bladder bleeding issues - XR HIP GENERAL 3V PELV/AP/LAT LEFT - CONSULT TO ORTHOPAEDICS 2. Anemia, unspecified type - ICD9: 285.9, ICD10: D64.9 Monitor; follow with Urology - COMPLETE BLOOD COUNT 3. Res failure/emphysema Follow with Pulm Follow up prn; has routine follow up in 2 months Medical Decision Making: Problems: Moderate: 2+ stable chronic illnesses Data: Unique test(s) ordered: 1 Risk: Moderate: Drug management Medical Decision Making Level: 4 - Moderate Otilia Lopez MD documented in this encounter [facility] 10-28-2024 Note HNO ID: [id number] Author: OTILIA LOPEZ MD Service: ? Author Type: Physician Type: Progress Notes Filed: 10/28/2024 15:38 Note Text: Chief Complaint Patient presents with: Left Hip Pain HPI Dimitri Painter is a 79 year old male who presents here today for hip pain. Pt in wheelchair today, here with his . Reevaluate the left hip pain which pt originally complained about in May but did not want to proceed with any testing or referrals. He was treated with Mobic 15 mg daily and if not improving in 2-4 weeks f/u to consider xray and or PT and or Ortho referral. Pt reports that Mobic medication has not helped as he still has pain, so he d/c medication due to recent dx of anemia. States pain has slightly increased from his previous visit. Has constant pain, especially when laying down and trying to get comfortable at night. Started using a cane to help keep him stable. Is able to walk but he does have a limp. When sitting pain is minimal, but if sitting for a prolonged period of time the pain does increase in aching and he will have to shift positions. Denies becoming off balance and falling due to his pain. Hx of bursitis to the left hip back in 2012, has done PT for this in past and been treated with Naprosyn. Reports pain is in the same hip, but is unable to recall if the pain he's experiencing is currently the same he's having. Resp status stable; follows with [facility] - Asking about lab results. Was dx with anemia in the hospital. States he's now able to walk without becoming short of breath. Was found to be bleeding in his bladder due to his history of radiation treatment for prostate cancer. Following with Dr Braun. Was in [facility] from 10/14/24 - 10/17/24. Has an appt with Dr. Braun on 11/14/24. Discharge Diagnosis (1) Symptomatic anemia: Status: Acute Code(s): D64.9 - Anemia, unspecified (2) Gross hematuria: Status: Acute Code(s): R31.0 - Gross hematuria (3) Painless hematuria: Status: Acute Code(s): R31.9 - Hematuria, unspecifie Chief Complaint: Dark urine, fatigue, SOB HPI Narrative DIMITRI PAINTER, is a 79-year-old male history of COPD, prostate cancer, former smoker presented [facility] ED 10/14/2024 due to fatigue, weight loss, poor appetite and increased shortness of breath. Has lost 9 pounds in 3 months and has no appetite or energy. He does wear oxygen at night because he is concerned he may have sleep apnea but never underwent formal testing. Has had dark-colored urine for 3 to 4 weeks and also has had a chronic left hip painsuspected to be due to bursitis and has been placed on NSAIDs. In the ED heart rate low 100s with initial blood pressure of 105/67 respiratory rate of 20. Pulse ox initially 79% but is then documented that was a poor waveform. Hemoglobin 4.8 with his last hemoglobin 14.5 on 01/06/2024. BMP with slightly elevated BUN of 21 otherwise within normal limits and liver profile within normal limits. Lactic acid 2.2. Patient typed and crossed for [address] abdomen pelvis obtained which showed dilated pancreatic duct with no suspicious mass, hepatic steatosis with hepatic cysts, significant stool burden, cholelithiasis and celiac artery pseudoaneurysm. Patient's UA with gross hematuria. Urology contacted and recommended admission. Hospitalist contacted for admission, patient evaluated at bedside and reports as above with the several weeks of fatigue, decreasing weight with poor p.o. intake and increasingshortness of breath. Patient reports his urine has been dark for 3 to 4 weeks and is intermittently darker than others. He does intermittently get constipated but reports he had a normal bowel movement earlier today. Occasionally gets a tight feeling in his chest over the past couple weeks as well but not presently having this concern. Currently patient receiving blood and reports he feels about the same as when he came in. Denies any nausea or vomiting, no abdominal pain, reports his only pain is some left hip pain for which she previously was taking meloxicam but did not find it helpful so he is no longer taking this. Patient denies any dark or bloody stool. Additionally patient reports he has been able to urinate well, did pass a clot earlier but otherwise has been feeling like he is emptying his bladder well, also denies anysuprapubic tenderness. Past medical history, appointments, medications, allergies reviewed. Previous Medical History PAST MEDICAL HISTORY Diagnosis Date Basal cell cancer right ear Cataract right eye Diverticulosis of colon (without mention of hemorrhage) Glaucoma High cholesterol Hypertension Personal history of colonic polyps Squamous cell carcinoma right forearm Previous Surgical History PAST SURGICAL HISTORY Procedure Laterality Date COLONOSCOPY FLX DX W/COLLJ SPEC WHEN PFRMD age 59 Colonoscopy COLONOSCOPY FLX DX W/COLLJ SPEC WHEN (more content not included)... [facility] 10-25-2024 Telephone encounter Note Lab work in scanned documents. Will discuss at upcoming appt. Pt notified of this via [employer]. Lyssa Lewis MA [facility] 10-25-2024 Miscellaneous Notes Lab work in scanned documents. Will discuss at upcoming appt. Pt notified of this via [employer]. Lyssa Lewis MA documented in this encounter [facility] 10-24-2024 Telephone encounter Note Monday appt given to pt for 10/28/24 1320 pm [facility] 10-24-2024 Miscellaneous Notes Monday appt given to pt for 10/28/24 1320 pm Message left for Gisel to call back. Lyssa Lewis MA Noted I would suggest office visit to evaluate the hip, since it has been 4 months Otilia Lopez MD Gisel OT from [facility] calls and states that she just evaluated patient and is not taking patient up for OT services. While there patient had complained of left hip pain as he previously had told Dr. Lopez of at appointment in May. Patient states that he is ready to do something about the left hip pain and is asking provider what the next steps are for this? Please review and advise, Joan Miranda RN documented in this encounter [facility] 10-24-2024 Telephone encounter Note Message left for Gisel to call back. Lyssa Lewis MA [facility] 10-24-2024 Telephone encounter Note Noted I would suggest office visit to evaluate the hip, since it has been 4 months Otilia Lopez MD [facility] 10-24-2024 Telephone encounter Note Gisel OT from [facility] calls and states that she just evaluated patient and is not taking patient up for OT services. While there patient had complained of left hip pain as he previously had told Dr. Lopez of at appointment in May. Patient states that he is ready to do something about the left hip pain and is asking provider what the next steps are for this? Please review and advise, Joan Miranda RN [facility] 10-24-2024 Telephone encounter Note Osbaldo noted plan. Jens Candelaria APRN.CNP [facility] 10-24-2024 Miscellaneous Notes Osbaldo noted plan. Jens Garcia, ENGINEER SERGEANT.LAST GREASER Mary from [facility] calling with plan of care, patient is going on vacation in the middle of it, 1 visit weekly for 1 week, then 2 visits weekly for 1 week, then 1 visit weekly for 1 week, then 2 visits weekly for 1 week, working on lower extremities strengthening, gait and balance training. documented in this encounter [facility] 10-23-2024 Telephone encounter Note Mary from [facility] calling with plan of care, patient is going on vacation in the middle of it, 1 visit weekly for 1 week, then 2 visits weekly for 1 week, then 1 visit weekly for 1 week, then 2 visits weekly for 1 week, working on lower extremities strengthening, gait and balance training. [facility] 10-22-2024 Telephone encounter Note Noted;agree with plan Otilia Lopez MD [facility] 10-22-2024 Miscellaneous Notes Noted;agree with plan Otilia Lopez MD Nicol from [facility] calls to report plan of care for patient and penitentiary will visit patient 2 times a week for 1 week and 1 time a week for 2 weeks. [facility] will work with patient on Education and Monitoring of Anemia. Patient's hemoglobin at D/C on 10/17 was 9.5. Patient is getting hemoglobin re-checked at [facility] on 10/24/2024. Patient has had no urinary issues since patient had cystoscopy done on 10/16. No call back needed unless there are questions. Joan Miranda RN documented in this encounter [facility] 10-22-2024 Telephone encounter Note Nicol from [facility] calls to report plan of care for patient and penitentiary will visit patient 2 times a week for 1 week and 1 time a week for 2 weeks. [facility] will work with patient on Education and Monitoring of Anemia. Patient's hemoglobin at D/C on 10/17 was 9.5. Patient is getting hemoglobin re-checked at [facility] on 10/24/2024. Patient has had no urinary issues since patient had cystoscopy done on 10/16. No call back needed unless there are questions. Joan Miranda RN [facility] 10-18-2024 Telephone encounter Note Left detailed message on [facility] secure voicemail with providers response. Provided office phone number to return call with any further questions. MADONNA Urbina [facility] 10-18-2024 Miscellaneous Notes Left detailed message on [facility] secure voicemail with providers response. Provided office phone number to return call with any further questions. MADONNA Urbina I will follow for Home Health Care Otilia Lopez MD Mary [facility] is calling asking if pcp will follow up patient through ? patient was discharged from [facility] on 10/17 for uti, fatigue, weakness, and SOB. is planning on doing assessment on Monday if pcp will follow. Please review and advise nurse needs called back with information. documented in this encounter [facility] 10-18-2024 Telephone encounter Note I will follow for Home Health Care Otilia Lopez MD [facility] 10-18-2024 Telephone encounter Note Mary was [facility] is calling asking if pcp will follow up patient through ? patient was discharged from [facility] on 10/17 for uti, fatigue, weakness, and SOB. is planning on doing assessment on Monday if pcp will follow. Please review and advise nurse needs called back with information. [facility] 10-17-2024 Note [facility] Medical Records Department [address] [place] [id number] Discharge Summary 10/17/24 1049 MR#: [id number] Acct: [id number] Name: DIMITRI PAINTER Rep #: [id number] : 1945 79 From: Blayne Trejo DO PCP: Dr. Otilia Lopez MD Status:ADM IN Location: [place] [id number] Providers Date of Admission: 10/14/24 Date of Discharge: 10/17/24 Primary Care Physician: Dr. Otilia Lopez MD Consultations 10/14/24 20:52 Consult: Urology Routine Consulting Provider: Dennis Braun Reason for Consult: hematuria, symptomatic anemia EMERGENT Consult: No MD Notified: Yes Date Notified: 10/14/24 Time Notified: 20:40 Method of Notification: Verbal Reason For Visit: ABLA SUSPECT 2/2 URINARY SOURCE Diagnosis Discharge Diagnosis (1) Symptomatic anemia: Status: Acute Code(s): D64.9 - Anemia, unspecified (2) Gross hematuria: Status: Acute Code(s): R31.0 - Gross hematuria (3) Painless hematuria: Status: Acute Code(s): R31.9 - Hematuria, unspecified Medications at Discharge Home Medications artificial tears(hypromellose) 0.3 % eye drops 1 drp EACH EYE BID DRY EYE 08/25/22 aspirin 81 mg tablet,delayed release 81 mg PO DAILY HEART HEALTH 08/25/22 lovastatin 40 mg tablet 40 mg PO DAILY CHOLESTEROL 08/25/22 timolol maleate 0.5 % eye drops 1 drp EACH EYE BID GLUCOMA 08/25/22 albuterol sulfate 90 mcg/actuation aerosol inhaler 2 puff inhalation Q6H PRN Dyspnea 12/13/22 docusate sodium 100 mg capsule (Colace) 100 mg PO QHS 12/13/22 fluticasone fur. 200 mcg-umeclid 62.5 mcg-vilant 25 mcg inhalat.powder (Trelegy Ellipta) 1 inh inhalation 212912/13/22 fluticasone propionate 50 mcg/actuation nasal spray,suspension 1 spray intranasal DAILY PRN nasal congestion 12/13/22 guaifenesin 600 mg tablet, extended release 12 hr (Mucinex) 600 mg PO BID 12/13/22 acetaminophen 500 mg tablet 500 - 1,000 mg PO Q6H PRN pain 10/14/24 loratadine 10 mg tablet (Allergy Relief (loratadine)) 10 mg PO DAILY 10/14/24 vitamins A,C,H-popi-ytxlzw 2,148 mcg-113 mg-45 mg-17.4 mg tablet (Eye Multivitamin) 2 tab PO BID 10/14/24 Hospital Course Operations None Procedures EKG and - (CT abdomen pelvis, cystoscopy) Summary of Care Provided Minutes Spent on Discharge: 35 Hospital Course: Patient is an 79-year-old male who presented [facility] ED on 10/14/2024 with worsening weakness and dark urine. Hospital course as noted below. Patient discharged home with home health care in stable condition on 10/17. 1. Acute symptomatic blood loss anemia secondary to painless hematuria ??? Urology followed. Hemoglobin 4.8 on admit, prior baseline of 14-15. UA with gross hematuria. CT abdomen pelvis on admit unremarkable. Denied change in stools. Improved to hemoglobin 6.6 after 2 units of blood, given another 2 units of blood on 10/15 with hemoglobin improved to 9.2. Cystoscopy on 10/16 showed bleeding from a vessel at the bladder neck possibly secondary to prior treatment for prostate cancer, no bladder mass noted so no concern for cancer. Vessels cauterized and patient passing clear urine on 10/17. Hemoglobin remained stable between 9-10 for remainder of hospitalization. Okay for discharge home on 10/17 with close outpatient follow-up with urology. 2. Acute debility ??? PT/OT/case management followed. Patient reported worsening debility over the past few months with poor p.o. intake and some weight loss. No evidence of new cancer as noted above. Stable for discharge home with home health care on 10/17. 3. 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 No inpatient needs, outpatient follow-up. 4. History of COPD with chronic respiratory failure ??? Wears 2 L nasal cannula at baseline. Stable on home 2 L and breathing comfortably, not in acute exacerbation. Continue home inhalers. 5. History of prostate cancer ??? With history of radical prostatectomy. 6. Underweight BMI ??? Nutrition followed. BMI 18 on admit. Did not meet criteria for nutrition. Treated with protein supplementation with meals while inpatient, encouraged increased protein intake regularly on discharge. Total clinical time spent by myself addressing the patient's medical issues, reviewing all the data, and collaborating with patient's care team: 35 minutes. Physical Exam Const alert, oriented x3 and no apparent distress Constitutional Narrative: Elderly male, thin, energy improved from admission, sitting back comfortably in bed, conversing normally, in no acute distress. General Appearance: cooperative and comfortable HEENT normocephalic, head/scalp atraumatic, hearing grossly normal bilaterally, nasal mucous membranes and turbinates normal and moist oral mucous membranes Eyes PERRL, EOMs intact bilaterally (more content not included)... [facility] 10-14-2024 Evaluation note Diagnosis Onset Date Resolution Gross hematuria resolved October 14, 2024 8:06pm Painless hematuria resolved Febr2024 8:06pm Signs and symptoms of anemia resolved October 14 8:06pm Symptomatic anemia resolved 2024 8:06pm Unintentional weight loss resolved October 14 8:06pm Frequent ventricular premature beats inactive October 14 8:06pm History of COPD inactive October 14, 2024 8:06pm PAC (premature atrial contraction) inactive October 14 8:06pm [facility] Work Phone: [phone] 379-466902-17-2025 Telephone encounter Note* Telephone Encounter - Masha Degroot RN - 10/14/2024 12:58 PM EST Patient's called stated patient has a jaundice look to him and waxy yellow/greyish look to his skin, mostly his face. Patient's stated he has looked this way for approximately 1 month. Patient's stated patient has lost ~ 6lbs in the last month. Not really eating. Patient's stated patient is sleeping all the time. Patient's stated patient had pneumothorax about 2 years ago and these are all the same things she had seen previous. Spoke with patient, A&O. Advised patient go to ER to get checked. Patient stated he also has c/o of hip pain. Patient stated he will go to [facility]. Advised will also send to PCP. Masha Degroot RN [facility]02-17-2025 Miscellaneous Notes* Telephone Encounter - Masha Degroot RN - 10/14/2024 12:58 PM EST Patient's called stated patient has a jaundice look to him and waxy yellow/greyish look to his skin, mostly his face. Patient's stated he has looked this way for approximately 1 month. Patient's stated patient has lost ~ 6lbs in the last month. Not really eating. Patient's stated patient is sleeping all the time. Patient's stated patient had pneumothorax about 2 years ago and these are all the same things she had seen previous. Spoke with patient, A&O. Advised patient go to ER to get checked. Patient stated he also has c/o of hip pain. Patient stated he will go to [facility]. Advised will also send to PCP. Masha Degroot RN * Telephone Encounter - Masha Degroot RN - 10/14/2024 11:54 AM EST Patient called in stated he has increase SOB with ambulation. 10/29/2024 following PFT's. Patient is compliant with medications and looking for recommendations. Patient denies cough, but stated he has a lot of mucus. Patient is using saline nebulized solution and Mucinex. Patient would like to see if there is a sooner appointment available. Masha Degroot RN [facility] Telephone encounter Note * Telephone Encounter - Masha Degroot RN - 10/14/2024 11:54 AM EST Patient called in stated he has increase SOB with ambulation. 10/29/2024 following PFT's. Patient is compliant with medications and looking for recommendations. Patient denies cough, but stated he has a lot of mucus. Patient is using saline nebulized solution and Mucinex. Patient would like to see if there is a sooner appointment available. Masha Degroot RN [facility]01-29-2025 Telephone encounter Note* Telephone Encounter - Jens Candelaria APRN.CNP - 09/25/2024 1:27 PM EST The following approved medication requests have been transmitted electronically. Requested Prescriptions Pending Prescriptions Disp Refills meloxicam (MOBIC) 15 mg tablet 30 tablet 1 Sig: Take 1 tablet by mouth once daily. With food. Jens Candelaria APRN.CNP [facility]01-29-2025 Miscellaneous Notes* Telephone Encounter - Jens Candelaria APRN.CNP - 09/25/2024 1:27 PM EST The following approved medication requests have been transmitted electronically. Requested Prescriptions Pending Prescriptions Disp Refills meloxicam (MOBIC) 15 mg tablet 30 tablet 1 Sig: Take 1 tablet by mouth once daily. With food. Jens Candelaria APRN.CNP * Telephone Encounter - Nishant Gary LPN - 09/25/2024 1:20 PM EST Prescription Refill Information The patient has been identified by name and date of : Yes Caregiver verified no other encounters exist for this prescription request: Yes Caregiver confirmed with patient/requestor that no other refills are due, in the near future, with this provider at this time: Yes The last office visit in the department: 06/27/24 Does the patient have a future office visit with this provider/department: Yes, 12/27/24 Requested Prescriptions Pending Prescriptions Disp Refills meloxicam (MOBIC) 15 mg tablet 30 tablet 1 Sig: Take 1 tablet by mouth once daily. With food. Nishant Gary LPN September 25, 2024 1:20 PM documented in [facility]29[facility]25 Telephone encounter Note * Telephone Encounter - Nishant Gary LPN - 09/25/2024 1:20 PM EST Prescription Refill Information The patient has been identified by name and date of : Yes Caregiver verified no other encounters exist for this prescription request: Yes Caregiver confirmed with patient/requestor that no other refills are due, in the near future, with this provider at this time: Yes The last office visit in the department: 06/27/24 Does the patient have a future office visit with this provider/department: Yes, 12/27/24 Requested Prescriptions Pending Prescriptions Disp Refills meloxicam (MOBIC) 15 mg tablet 30 tablet 1 Sig: Take 1 tablet by mouth once daily. With food. Nishant Gary LPN September 25, 2024 1:20 PM [facility]12-27-2024 Telephone encounter Note* Telephone Encounter - Claudio Fowler MA - 08/23/2024 3:51 PM EST [facility] Signed by Dr Marina Amaral Form faxed. Transmission ok. [facility]12-27-2024 Miscellaneous Notes* Telephone Encounter - Claudio Fowler MA - 08/23/2024 3:51 PM EST [facility] Signed by Dr Marina Amaral Form faxed. Transmission ok. documented in this encounterL[facility]12-24-2024 Telephone encounter Note * Telephone Encounter - Otilia Lopez MD - 08/20/2024 10:29 AM EST OK to refill as ordered Otilia Lopez MD [facility]12-24-2024 Miscellaneous Notes* Telephone Encounter - Otilia Lopez MD - 08/20/2024 10:29 AM EST OK to refill as ordered Otilia Lopez MD * Telephone Encounter - Denver Coker RN - 08/19/2024 1:37 PM EST Pt reports pcp office told him he requested refill too soon on lovastatin 40 mg. Reports the bottlehe has was dispensed to him on 05-22-24 and it says zero refills. [facility] tells him he has no refills. Reports he will run out at the end of this month. Pended new Rx. Last ov: 06-27-24 Next ov: 12-27-24 documented in this encounterL[facility]12-23-2024 Telephone encounter Note * Telephone Encounter - Denver Coker RN - 08/19/2024 1:37 PM EST Pt reports pcp office told him he requested refill too soon on lovastatin 40 mg. Reports the bottlehe has was dispensed to him on 05-22-24 and it says zero refills. [facility] tells him he has no refills. Reports he will run out at the end of this month. Pended new Rx. Last ov: 06-27-24 Next ov: 12-27-24 [facility]12-16-2024 History of Present illness Narrative* Rosalinda Vázquez RT(R) - 08/12/2024 3:40 PM EST Radiology Service Progress Note PATIENT NAME: Dimitri Painter DATE OF SERVICE: August 12, 2024 TIME: 3:57 PM PATIENT IDENTITY VERIFICATION COMPLETED USING TWO (2) IDENTIFIERS: Name and Date of confirmedby patient verbally. FALL SCREENING: Has the patient had 2 falls in the last year or 1 fall with injury or currently using an Ambulatory Assistive Device (Walker, Cane, Wheelchair, Crutches, etc.)? No PATIENT GENDER DATA: Male PATIENT RELEVANT IMPLANT DATA REVIEWED: Not Applicable PATIENT PRESENTS WITH AN IMPLANTABLE OR ATTACHED SUSTAINABILITY PROJECT COORDINATOR: No RADIOLOGY DEPARTMENT: CT; Exam(s) Completed: Chest PERIPHERAL IV DATA: Not applicable SIGNED BY: RT Darrick(Jovanny) August 12, 2024 3:57 PM documented in this encounterLancaster [facility] Hospital12-16-2024 NoteHNO ID: [id number] Author: ROSALINDA VÁZQUEZ RT(R) Service: ? Author Type: Solar System Installer Type: Progress Notes Filed: 08/12/2024 15:57 Note Text: Radiology Service Progress Note PATIENT NAME: Dimitri Painter DATE OF SERVICE: August 12, 2024 TIME: 3:57 PM PATIENT IDENTITY VERIFICATION COMPLETED USING TWO (2) IDENTIFIERS: Name and Date of confirmed by patient verbally. FALL SCREENING: Has the patient had 2 falls in the last year or 1 fall with injury or currently using an Ambulatory Assistive Device (Walker, Cane, Wheelchair, Crutches, etc.)? No PATIENT GENDER DATA: Male PATIENT RELEVANT IMPLANT DATA REVIEWED: Not Applicable PATIENT PRESENTS WITH AN IMPLANTABLE OR ATTACHED SUSTAINABILITY PROJECT COORDINATOR: No RADIOLOGY DEPARTMENT: CT; Exam(s) Completed: Chest PERIPHERAL IV DATA: Not applicable SIGNED BY: RT Darrick(R) August 12, 2024 3:57 [facility]10-31-2024 History of Present illness Narrative* Otilia Lopez MD - 06/27/2024 1:20 PM EDT Dimitri Painter is a 78 year old male here for a Medicare wellness visit. Medicare Health Risk Assessment General Health Good Exercise: Minutes/Day 30 min Exercise: Days/Week 4 days Alcohol: Daily Use Never Alcohol: Drinks/Day Patient does not drink Alcohol: 6 or more drinks Never Feel off balance No Concerns: Teeth/Dentures No Concerns: Sexual function No Troubled by feelings None of the above Frequency: Eating healthy diet Several days ADLs requiring help None of the above Safety precautions in home/vehicle Yes Smoke, vape, chews tobacco No Difficulty hearing Yes Difficulty seeing Yes Current Providers Specialists: I have reviewed specialist-related care of the patient in the medical record. Current care team: Patient Care Team: Otilia Lopez MD as PCP - General (Family Medicine) Sherley Acosta MD as Physician (Radiation Oncology) Otilia Lopez MD as Home Care Provider (Family Medicine) Dylon Medina MD as Referring (Internal Medicine) Outside specialists seen: Dr. Ferrer at [facility], Dr. Amaral-Pulmonology Medical/Family history review Reviewed and updated problem list, medical/surgical/family/social history, medications, and allergies. Opioid use review Opioid Medications (last 90 days) No data to display Anxiety/Depression screening PHQ-2 Score: 0 (Lower risk for depression) Recommendation: no further intervention at this time Cognitive screening Mini Cog Score: 3 Cognitive screening reviewed and No further action needed (score 3-5). Functional Observation Was the patient's Timed Up & Go test unsteady or >= 12 seconds? No Advance Care Planning Patient did not wish or was not able to name a surrogate decision maker or provide an advance care plan Measurements BP 110/70 Pulse 80 Resp 16 Ht 163.8 cm (5' 4.5) Wt 56.7 kg (125 lb) BMI 21.12 kg/m Vision Screening: Follows with optometry/ophthalmology Right: 20/40 Left: 20/ impairment Both: 20/40 Assessment/Plan Medicare annual wellness visit, initial (Z00.00) - Counseled on healthy diet and regular exercise - Fall avoidance information provided - Personalized prevention plan provided Otilia Lopez MD Chief Complaint Follow up, left hip pain HPI Dimitri Painter is a 78 year old male who presents here today for above concerns, in addition to Medicare Annual Visit. Pt c/o left hip pain for the last 2-3 weeks, constant ache. Does get better with movement. Has somepain with standing and walking. No pain with laying as he sleeps on his back most the time, but really no pain when laying on his sides. Has used Tylenol. No ice or heat used. Does mitchell some stretches. Hx of bursitis in past to the left hip, did PT and was on Naprosyn. He doesn't remember if this pain is similar to the pain he had with the bursitis. No chest pains, dizziness, or SOB. No bowel, Gi, or urinary issues. Lipid: Tries to watch diet but doesn't eat much. Taking Lovastatin 40 mg daily. He does stay activebut no regular exercise regimen. Pneumothorax: uses 2 L oxygen at bedtime and as needed. Follows with Pulmonary Dr. Amaral. He is on saline solution in his nebulizer which has helped reduce the amount of times he has needed the Albuterol solution for nebulizer and albuterol inhaler. He is on Trelegy Ellipta inhaler but it can be costly at times. Past medical history, appointments, medications, allergies reviewed. Previous Medical History PAST MEDICAL HISTORY Diagnosis Date Basal cell cancer right ear Cataract right eye Diverticulosis of colon (without mention of hemorrhage) Glaucoma High cholesterol Hypertension Personal history of colonic polyps Squamous cell carcinoma right forearm Previous Surgical History PAST SURGICAL HISTORY Procedure Laterality Date COLONOSCOPY FLX DX W/COLLJ SPEC WHEN PFRMD age 59 Colonoscopy COLONOSCOPY FLX DX W/COLLJ SPEC WHEN PFRMD 01/05/12 repeat 5 years PROSTATECTOMY;RADICAL RETROPUBIC REPAIR RETINAL DETACHMENT SCLERAL BUCKLING Scleral Buckle Family History FAMILY HISTORY Problem Relation Age of Onset Heart Mother age 65 Diabetes Father age 89 Cancer Sister breast Patient Allergies ALLERGIES Allergen Reactions Anesthesia S/I-40 (* Other: See Comments With use of anesthesia knocks him out, doesn't need much per . Current Medications Current Outpatient Medications on File Prior to Visit Medication Sig sodium chloride (NEBUSAL) 3 % nebulizer solution Use 4 mL via nebulizer two times a day as needed for cough (to help thin secretions). docusate sodium (COLACE) 100 mg capsule once daily. guaiFENesin (MUCINEX) 600 mg 12 hr tablet Take 2 tablets by mouth two times a day. albuterol (PROVENTIL) 2.5 mg /3 mL (0.083 %) nebulizer solution Use 3 mL via nebulizer every 4 hours as needed for wheezing/shortness of breath. Use over 5-15minutes. guaiFENesin (MUCINEX) 600 mg 12 hr tablet Take 2 tablets by mouth two times a day. lovastatin 40 mg tablet Take 1 tablet by mouth daily at bedtime. TRELEGY ELLIPTA 200-62.5-25 mcg inhalation powder USE 1 INHALATION BY MOUTH ONCE DAILY AT THE SAME TIME EACH DAY DIRECTED fluticasone (FLONASE) 50 mcg/actuation nasal spray Use 1-2 Sprays in each nostril once daily. albuterol HFA (PROAIR HFA) 90 mcg/actuation inhaler Inhale 2 Puffs by mouth every 4 hours as neededfor wheezing/shortness of breath. Take as directed OXYGEN, HOME THERAPY, 2 L/min by Nasal Cannula route continuous. vit A,C,Y-Esqf-Pajhhe (PRESERVISION AREDS) 2,148 mcg-113 mg-45 mg-17.4mg tab Take 1 tablet by mouthtwice daily. aspirin, enteric coated (ASPIRIN, ENTERIC COATED) 81 mg EC tablet Take 81 mg by mouth once daily. Indications: prevention of transient ischemic attack acetaminophen (TYLENOL) 500 mg tablet Take 2 tablets by mouth every 6 hours as needed for pain. Indications: pain Propylene Glycol-Glycerin 1-0.3 % drop Use in both eyes. TIMOLOL MALEATE OPHTHALMIC Use in eyes. Left eye azithromycin (ZITHROMAX) 250 mg tablet Take 2 tabs on the first day, then one tab daily for 4 days.(Patient not taking: Reported on 06/27/2024) No current facility-administered medications on file prior to visit. Social History Social History Tobacco Use Smoking status: Former Current packs/day: 0.00 Average packs/day: 0.5 packs/day for 40.0 years (20.0 ttl pk-yrs) Types: Cigarettes Start date: 08/25/1982 Quit date: 08/25/2022 Years since quittin.8 Smokeless tobacco: Never Tobacco comments: Pt stopped smoking the day he was admitted into the hospital. Vaping Use Vaping status: Never Used Substance Use Topics Alcohol use: No Comment: rare Drug use: No EXAM: BP 110/70 Pulse 80 Resp 16 Ht 163.8 cm (5' 4.5) Wt 56.7 kg (125 lb) BMI 21.12 kg/m General Appearance: Well appearing, alert, in no acute distress, well-hydrated, well nourished.. Lungs: Lungs clear to auscultation. No wheezing, rhonchi, rales.. Heart: RRR without murmur, gallop, or rubs. No ectopy. Extremities: left hip; pain on palpation, pain with rotating leg inward. Health Maintenance List Shingrix Vaccine(1 of 2) Never done DTaP,Tdap,Td Vaccine(1 - Tdap) due on 11/20/2018 RSV Vaccine(1 - 1-dose 75+ series) Never done Influenza Vaccine(1) due on 04/28/2024 Covid-19 Vaccine( - season) due on 04/28/2024 Depression Screening due on 12/20/2024 Anxiety Screening due on 12/20/2024 Annual PCP Team Chronic Disease Visit due on 06/27/2025 Diabetes Screening due on 06/24/2027 Spirometry Completed Advance Directive Discussion Completed Pneumococcal Vaccine: 65+ Completed HPV Vaccine Aged Out Colorectal Cancer Screening Discontinued Data reviewed Appointment on 06/24/2024 Component Date Value Protein, Total 06/24/2024 7.5 Albumin 06/24/2024 4.0 Calcium, Total 06/24/2024 9.2 Bilirubin, Total 06/24/2024 0.6 Alkaline Phosphatase 06/24/2024 87 AST 06/24/2024 24 ALT 06/24/2024 11 Glucose 06/24/2024 88 BUN 06/24/2024 14 Creatinine 06/24/2024 0.67 (L) Sodium 06/24/2024 138 Potassium 06/24/2024 4.4 Chloride 06/24/2024 103 CO2 06/24/2024 26 Anion Gap 06/24/2024 9 Estimated Glomerular Rohith* 06/24/2024 95 Cholesterol, Total 06/24/2024 166 Triglyceride 06/24/2024 63 HDL Cholesterol 06/24/2024 51 Non HDL Cholesterol 06/24/2024 115 Fasting Time 06/24/2024 12 VLDL Cholesterol 06/24/2024 13 TC:HDL Ratio 06/24/2024 3.25 LDL Cholesterol 06/24/2024 102 (H) LDL:HDL Ratio 06/24/2024 2.00 PSA 06/24/2024 0.12 Hospital Outpatient Visit on 06/03/2024 Component Date Value Radiology Result 06/03/2024 ACTIONABLE (Actionable) Hospital Outpatient Visit on 05/27/2024 Component Date Value Radiology Result 05/27/2024 ACTIONABLE (Actionable) ASSESSMENT/PLAN: 1. Medicare annual wellness visit, initial - ICD9: V70.0, ICD10: Z00.00 (primary diagnosis) - Counseled on healthy diet and regular exercise - Patient counseled on and acknowledged vaccine benefits/risks/side effects; VIS provided: Influenza - Follow up for annual exam in one year 2. Trochanteric bursitis of left hip - ICD9: 726.5, ICD10: M70.62 Rx for Mobic 15 mg daily If not improved in 2-4 weeks consider Xray and/or PT and.or Ortho eval 3. Hyperlipidemia, unspecified hyperlipidemia type - ICD9: 272.4, ICD10: E78.5 - Controlled - Continue current medications - Counseled on healthy diet and regular exercise 4. Need for vaccination - ICD9: V05.9, ICD10: Z23 - INFLUENZA VACCINE, PRSV FREE, AGE 65+ YR, HIGH DOSE, TRIVALENT (FLUZONE HIGH-DOSE) 5. Prostate cancer (HCC) - ICD9: 185, ICD10: C61 PSA labs monitored Follow up in 6 months with fasting labs prior. I agree with the Chief Complaint, ROS, and Past Histories independently gathered by the clinical clinical support specialist and the remaining scribed note accurately describes my personal service to the patient. Medical Decision Making: Problems: Low: Acute, uncomplicated illness or injury Moderate: 2+ stable chronic illnesses Data: Unique test result(s) reviewed: 3+ Unique test(s) ordered: 3+ Risk: Moderate: Drug management Medical Decision Making Level: 4 - Moderate Otilia Lopez MD The documentation for this note was completed by Lyssa Lewis MA acting as scribe for Otilia Lopez MD. June 27, 2024 1:23 PM. Lyssa Lewis MA documented in this encounterL[facility]10-31-2024 NoteHNO ID: [id number] Author: OTILIA LOPEZ MD Service: ? Author Type: Physician Type: Progress Notes Filed: 06/27/2024 16:01 Note Text: Dimitri Painter is a 78 year old male here for a Medicare wellness visit. Medicare Health Risk Assessment General Health Good Exercise: Minutes/Day 30 min Exercise: Days/Week 4 days Alcohol: Daily Use Never Alcohol: Drinks/Day Patient does not drink Alcohol: 6 or more drinks Never Feel off balance No Concerns: Teeth/Dentures No Concerns: Sexual function No Troubled by feelings None of the above Frequency: Eating healthy diet Several days ADLs requiring help None of the above Safety precautions in home/vehicle Yes Smoke, vape, chews tobacco No Difficulty hearing Yes Difficulty seeing Yes Current Providers Specialists: I have reviewed specialist-related care of the patient in the medical record. Current care team: Patient Care Team: Otilia Lopez MD as PCP - General (Family Medicine) Sherley Acosta MD as Physician (Radiation Oncology) Otilia Lopez MD as Home Care Provider (Family Medicine) Dylon Medina MD as Referring (Internal Medicine) Outside specialists seen: Dr. Ferrer at [facility], Dr. Amaral-Pulmonology Medical/Family history review Reviewed and updated problem list, medical/surgical/family/social history, medications, and allergies. Opioid use review Opioid Medications (last 90 days) No data to display Anxiety/Depression screening PHQ-2 Score: 0 (Lower risk for depression) Recommendation: no further intervention at this time Cognitive screening Mini Cog Score: 3 Cognitive screening reviewed and No further action needed (score 3-5). Functional Observation Was the patient's Timed Up AND Go test unsteady or >= 12 seconds? No Advance Care Planning Patient did not wish or was not able to name a surrogate decision maker or provide an advance care plan Measurements BP 110/70 Pulse 80 Resp 16 Ht 163.8 cm (5' 4.5) Wt 56.7 kg (125 lb) BMI 21.12 kg/m? Vision Screening: Follows with optometry/ophthalmology Right: 20/40 Left: 20/ impairment Both: 20/40 Assessment/Plan Medicare annual wellness visit, initial (Z00.00) - Counseled on healthy diet and regular exercise - Fall avoidance information provided - Personalized prevention plan provided Otilia Lopez MD Chief Complaint Follow up, left hip pain HPI Dimitri Painter is a 78 year old male who presents here today for above concerns, in addition to Medicare Annual Visit. Pt c/o left hip pain for the last 2-3 weeks, constant ache. Does get better with movement. Has some pain with standing and walking. No pain with laying as he sleeps on his back most the time, but really no pain when laying on his sides. Has used Tylenol. No ice or heat used. Does mitchell some stretches. Hx of bursitis in past to the left hip, did PT and was on Naprosyn. He doesn't remember if this pain is similar to the pain he had with the bursitis. No chest pains, dizziness, or SOB. No bowel, Gi, or urinary issues. Lipid: Tries to watch diet but doesn't eat much. Taking Lovastatin 40 mg daily. He does stay active but no regular exercise regimen. Pneumothorax: uses 2 L oxygen at bedtime and as needed. Follows with Pulmonary Dr. Amaral. He is on saline solution in his nebulizer which has helped reduce the amount of times he has needed the Albuterol solution for nebulizer and albuterol inhaler. He is on Trelegy Ellipta inhaler but it can be costly at times. Past medical history, appointments, medications, allergies reviewed. Previous Medical History PAST MEDICAL HISTORY Diagnosis Date Basal cell cancer right ear Cataract right eye Diverticulosis of colon (without mention of hemorrhage) Glaucoma High cholesterol Hypertension Personal history of colonic polyps Squamous cell carcinoma right forearm Previous Surgical History PAST SURGICAL HISTORY Procedure Laterality Date COLONOSCOPY FLX DX W/COLLJ SPEC WHEN PFRMD age 59 Colonoscopy COLONOSCOPY FLX DX W/COLLJ SPEC WHEN PFRMD 01/05/12 repeat 5 years PROSTATECTOMY;RADICAL RETROPUBIC REPAIR RETINAL DETACHMENT SCLERAL BUCKLING Scleral Buckle Family History FAMILY HISTORY Problem Relation Age of Onset Heart Mother age 65 Diabetes Father age 89 Cancer Sister breast Patient Allergies ALLERGIES Allergen Reactions Anesthesia S/I-40 (* Other: See Comments With use of anesthesia knocks him out, doesn't need much per . Current Medications Current Outpatient Medications on File Prior to Visit Medication Sig sodium chloride (NEBUSAL) 3 % nebulizer solution Use 4 mL via nebulizer two times a day as needed for cough (to help thin secretions). docusate sodium (COLACE) 100 mg capsule once daily. guaiFENesin (MUCINEX) 600 mg 12 hr tablet Take 2 tablets by mouth two times a day. albuterol (PROVENTIL) 2.5 mg /3 mL (0.083 %) nebu (more content not included)... [facility]10-14-2024 Telephone encounter Note* Telephone Encounter - Renetta Chery APRN.CNP - 06/10/2024 5:35 PM EDT Spoke with patient regarding results of CT chest. There are nodular opacities in the RLL, a density in the JAD, and multiple clustered nodules He was treated with azithromycin prior to this CT chest and his cough has improved some since the antibiotic. He is still using hypertonic saline nebulizer and this is helping produce sputum. Will repeat CT chest in 2 months to follow up on above changes. Patient is in agreement and all questions were answered. [facility]10-14-2024 Miscellaneous Notes* Telephone Encounter - Renetta Chery APRN.CNP - 06/10/2024 5:35 PM EDT Spoke with patient regarding results of CT chest. There are nodular opacities in the RLL, a density in the JAD, and multiple clustered nodules He was treated with azithromycin prior to this CT chest and his cough has improved some since the antibiotic. He is still using hypertonic saline nebulizer and this is helping produce sputum. Will repeat CT chest in 2 months to follow up on above changes. Patient is in agreement and all questions were answered. documented in this encounterL[facility]10-07-2024 History of Present illness Narrative* Rosalinda Vázquez RT(R) - 06/03/2024 3:20 PM EDT Radiology Service Progress Note PATIENT NAME: Dimitri Painter DATE OF SERVICE: June 03, 2024 TIME: 4:05 PM PATIENT IDENTITY VERIFICATION COMPLETED USING TWO (2) IDENTIFIERS: Name and Date of confirmedby patient verbally. FALL SCREENING: Has the patient had 2 falls in the last year or 1 fall with injury or currently using an Ambulatory Assistive Device (Walker, Cane, Wheelchair, Crutches, etc.)? No PATIENT GENDER DATA: Male PATIENT RELEVANT IMPLANT DATA REVIEWED: Yes PATIENT PRESENTS WITH AN IMPLANTABLE OR ATTACHED SUSTAINABILITY PROJECT COORDINATOR: No RADIOLOGY DEPARTMENT: CT; Exam(s) Completed: Chest PERIPHERAL IV DATA: Not applicable SIGNED BY: RT Darrick(Jovanny) June 03, 2024 4:05 PM documented in this encounterLanc[facility] Hospital10-07-2024 NoteHNO ID: [id number] Author: ROSALINDA VÁZQUEZ RT(Jovanny) Service: ? Author Type: Solar System Installer Type: Progress Notes Filed: 06/03/2024 16:06 Note Text: Radiology Service Progress Note PATIENT NAME: Dimitri Painter DATE OF SERVICE: June 03, 2024 TIME: 4:05 PM PATIENT IDENTITY VERIFICATION COMPLETED USING TWO (2) IDENTIFIERS: Name and Date of confirmed by patient verbally. FALL SCREENING: Has the patient had 2 falls in the last year or 1 fall with injury or currently using an Ambulatory Assistive Device (Walker, Cane, Wheelchair, Crutches, etc.)? No PATIENT GENDER DATA: Male PATIENT RELEVANT IMPLANT DATA REVIEWED: Yes PATIENT PRESENTS WITH AN IMPLANTABLE OR ATTACHED SUSTAINABILITY PROJECT COORDINATOR: No RADIOLOGY DEPARTMENT: CT; Exam(s) Completed: Chest PERIPHERAL IV DATA: Not applicable SIGNED BY: RT Darrick(R) June 03, 2024 4:05 [facility]10-02-2024 Telephone encounter Note* Telephone Encounter - Renetta Chery APRN.CNP - 05/29/2024 5:23 PM EDT Spoke with patient and spouse regarding results of CXR Patient recently had covid and is still having ongoing coughing, weakness, and fatigue. Denies fevers, chills He is having difficulty coughing up secretions and is already taking mucinex. Ordered azithromycin antibiotic given potential early infiltrate on recent CXR Order sodium chloride nebulizer BID as needed to help thin secretions. Ordered a CT chest for soonest available to evaluate for changes regarding h/o pneumothorax and atelectasis or early infiltrate in the right lung base. All questions answered. [facility]10-02-2024 Miscellaneous Notes* Telephone Encounter - Renetta Chery APRN.CNP - 05/29/2024 5:23 PM EDT Spoke with patient and spouse regarding results of CXR Patient recently had covid and is still having ongoing coughing, weakness, and fatigue. Denies fevers, chills He is having difficulty coughing up secretions and is already taking mucinex. Ordered azithromycin antibiotic given potential early infiltrate on recent CXR Order sodium chloride nebulizer BID as needed to help thin secretions. Ordered a CT chest for soonest available to evaluate for changes regarding h/o pneumothorax and atelectasis or early infiltrate in the right lung base. All questions answered. [facility] History of Present illness Narrative* Kat Wick RT(R) - 05/27/2024 2:50 PM EDT Radiology Service Progress Note PATIENT NAME: Dimitri Painter DATE OF SERVICE: May 27, 2024 TIME: 2:41 PM PATIENT IDENTITY VERIFICATION COMPLETED USING TWO (2) IDENTIFIERS: Name and Date of confirmedby patient verbally. FALL SCREENING: Has the patient had 2 falls in the last year or 1 fall with injury or currently using an Ambulatory Assistive Device (Walker, Cane, Wheelchair, Crutches, etc.)? No PATIENT GENDER DATA: Male PATIENT RELEVANT IMPLANT DATA REVIEWED: Yes PATIENT PRESENTS WITH AN IMPLANTABLE OR ATTACHED SUSTAINABILITY PROJECT COORDINATOR: No RADIOLOGY DEPARTMENT: General X-ray: Exam(s) Completed: Chest X-Ray PERIPHERAL IV DATA: Not applicable SIGNED BY: RT Jet(Jovanny) May 27, 2024 2:41 PM documented in this [facility]09-30-[facility]24 NoteHNO ID: [id number] Author: KAT WICK RT(R) Service: Radiology Author Type: Technologist Type: Progress Notes Filed: 05/27/2024 14:49 Note Text: Radiology Service Progress Note PATIENT NAME: Dimitri Painter DATE OF SERVICE: May 27, 2024 TIME: 2:41 PM PATIENT IDENTITY VERIFICATION COMPLETED USING TWO (2) IDENTIFIERS: Name and Date of confirmed by patient verbally. FALL SCREENING: Has the patient had 2 falls in the last year or 1 fall with injury or currently using an Ambulatory Assistive Device (Walker, Cane, Wheelchair, Crutches, etc.)? No PATIENT GENDER DATA: Male PATIENT RELEVANT IMPLANT DATA REVIEWED: Yes PATIENT PRESENTS WITH AN IMPLANTABLE OR ATTACHED SUSTAINABILITY PROJECT COORDINATOR: No RADIOLOGY DEPARTMENT: General X-ray: Exam(s) Completed: Chest X-Ray PERIPHERAL IV DATA: Not applicable SIGNED BY: RT Jet(Jovanny) May 27, 2024 2:41 [facility]09-23-2024 Telephone encounter Note* Telephone Encounter - Michelle Gerardo LPN - 05/20/2024 12:25 PM EDT Patient notified. Verbalized understanding. Umanzor [id number] Miscellaneous Notes* Telephone Encounter - Michelle Gerardo LPN - 05/20/2024 12:25 PM EDT Patient notified. Verbalized understanding. * Telephone Encounter - Jens Candelaria APRN.CNP - 05/20/2024 12:08 PM EDT Outside of the window of treatment. If the patient develops worsening shortness of breath, then he needs to go to the ER. If he wants anything else, he would need an appointment. Can start with a virtual. Jens Candelaria APRN.LAST GREASER * Telephone Encounter - Mira Christina LPN - 05/20/2024 9:29 AM EDT Pt calls and states the following: COVID 19 positive. COVID -19 DIAGNOSIS: COVID positive 05-17-24 home test. also tested positive same time and her symptoms started same time. COVID-19 EXPOSURE: possible exposed on 05-08-24 at [facility]. Fair/[employer] Show ONSET: 05/15/24 WORST SYMPTOM: lung congestion/mucus bringing up is thick and green (pt reports he is not prone to pneumonia) COUGH: cough helps to bring up mucus, at times the cough is dry. Feels like it is a barking cough per pt. FEVER: was running a fever but this has resolved RESPIRATORY STATUS: no [id number]: same, not worse but not getting better HIGH RISK DISEASE: COPD, emphysema VACCINE: Yes x 3 (2020) OTHER SYMPTOMS: Achy in hips, chest and shoulders DENIES:difficulty breathing, SOB, chills, fatigue, headache, loss of smell or taste, abdominal pain, diarrhea, vomiting. Pt has been treating the symptoms with Mucinex, Tylenol and nasal spray. Pt instructed to let his pulmonary doctor know what's going on. Please advise pt is there is anything else he can do, medication or x-rays. Pt past the 5 day window. for Paxlovid. Pt did ask about this medication. Pt aware if any difficulty breathing, SOB or symptoms become severe he will need to go to ER. Mira Christina LPN documented [facility] Telephone encounter Note * Telephone Encounter - Jens Candelaria APRN.CNP - 05/20/2024 12:08 PM EDT Outside of the window of treatment. If the patient develops worsening shortness of breath, then he needs to go to the ER. If he wants anything else, he would need an appointment. Can start with a virtual. Jens Candelaria APRN.ANTONI [facility]09-23-[facility] Telephone encounter Note* Telephone Encounter - Renetta Chery APRN.CNP - 05/20/2024 10:47 AM EDT Spoke with the patient on the phone. Sx started on 05/15/2024. This is day 6 of symptoms and out of window for paxlovid. Admits to current symptoms of chest congestion and a productive cough of white and occasional greensputum. Feels improvement of chest congestion after producing sputum. Highest temp was 100.4 Denies SOB, wheezing, chills, nightsweats He is using trelegy as prescribed He has used the albuterol inhaler not even once a day. Recommend supportive care of fluids, rest, and analgesia PRN. Recommend continuing mucinex to help thin secretions Recommend using PRN albuterol nebulizer to help with chest congestion and productive cough. Instructed the patient if having worsening chest congestion to get the CXR done that was ordered atLOV. If starting to have symptoms of COPDAE (wheezing, increased dyspnea, and worsening productive cough) to notify us. If having difficulty breathing, he is instructed to go to the ER for management. All questions answered. [facility] Work Phone: [phone] 740-527609-23-2024 Miscellaneous Notes* Telephone Encounter - Renetta Chery APRN.CNP - 05/20/2024 10:47 AM EDT Spoke with the patient on the phone. Sx started on 05/15/2024. This is day 6 of symptoms and out of window for paxlovid. Admits to current symptoms of chest congestion and a productive cough of white and occasional greensputum. Feels improvement of chest congestion after producing sputum. Highest temp was 100.4 Denies SOB, wheezing, chills, nightsweats He is using trelegy as prescribed He has used the albuterol inhaler not even once a day. Recommend supportive care of fluids, rest, and analgesia PRN. Recommend continuing mucinex to help thin secretions Recommend using PRN albuterol nebulizer to help with chest congestion and productive cough. Instructed the patient if having worsening chest congestion to get the CXR done that was ordered atLOV. If starting to have symptoms of COPDAE (wheezing, increased dyspnea, and worsening productive cough) to notify us. If having difficulty breathing, he is instructed to go to the ER for management. All questions answered. * Telephone Encounter - Josias Miguel RN - 05/20/2024 10:05 AM EDT Pt called in informing RN he is positive for Covid. Pt tested positive on 05/17. Denies fever/chills currently. He states his temp is 99.0. He has chest congestion (audible on phone). He is able to bring up the mucus. He states he has beentaking his Mucinex as ordered still. Pt is taking Flonase as ordered as well. Denies SOB. Pt asking if he would be a candidate for Paxlovid. Per pt, symptoms started on 05/15 which would be 5 days today. RN instructed pt to drink plenty of fluids, this will help thin secretions. RN instructed to keep taking medications as ordered. [facility] Telephone encounter Note * Telephone Encounter - Josias Miguel RN - 05/20/2024 10:05 AM EDT Pt called in informing RN he is positive for Covid. Pt tested positive on 05/17. Denies fever/chills currently. He states his temp is 99.0. He has chest congestion (audible on phone). He is able to bring up the mucus. He states he has beentaking his Mucinex as ordered still. Pt is taking Flonase as ordered as well. Denies SOB. Pt asking if he would be a candidate for Paxlovid. Per pt, symptoms started on 05/15 which would be 5 days today. RN instructed pt to drink plenty of fluids, this will help thin secretions. RN instructed to keep taking medications as ordered. [facility] Telephone encounter Note* Telephone Encounter - Mira Christina LPN - 05/20/2024 9:29 AM EDT Pt calls and states the following: COVID 19 positive. COVID -19 DIAGNOSIS: COVID positive 05-17-24 home test. also tested positive same time and her symptoms started same time. COVID-19 EXPOSURE: possible exposed on 05-08-24 at [facility]. [email or web address] ONSET: 05/15/24 WORST SYMPTOM: lung congestion/mucus bringing up is thick and green (pt reports he is not prone to pneumonia) COUGH: cough helps to bring up mucus, at times the cough is dry. Feels like it is a barking cough per pt. FEVER: was running a fever but this has resolved RESPIRATORY STATUS: no [id number]: same, not worse but not getting better HIGH RISK DISEASE: COPD, emphysema VACCINE: Yes x 3 (2020) OTHER SYMPTOMS: Achy in hips, chest and shoulders DENIES:difficulty breathing, SOB, chills, fatigue, headache, loss of smell or taste, abdominal pain, diarrhea, vomiting. Pt has been treating the symptoms with Mucinex, Tylenol and nasal spray. Pt instructed to let his pulmonary doctor know what's going on. Please advise pt is there is anything else he can do, medication or x-rays. Pt past the 5 day window. for Paxlovid. Pt did ask about this medication. Pt aware if any difficulty breathing, SOB or symptoms become severe he will need to go to ER. Mira Christina LPN [facility]09-12-[facility] History of Present illness Narrative* Renetta Chery APRN.LAST GREASER - 05/09/2024 1:00 PM EDT Images from the original note were not included. Patient: Dimitri Painter PCP: Otilia Lopez MD CC: follow up HPI: Dimitri Painter is a 78 year old male former smoker, 20 pack years (quitting 2021) with PMH significant for chronic hypoxemic respiratory failure, pulmonary emphysema, pneumothorax, chronic rhinitis, prostate cancer, and HLD. Last Pulmonary Clinic visit was with Dr. Drake mAaral on 10/30/2023. The plan from this office visit was: -Obtain repeat oximetry with ambulation, nocturnal oximetry - Continue Trelegy, and as needed albuterol. Completed pulmonary rehab - Continue smoking cessation - Continue Claritin Today, the patient feels good since last office visit. Went to [facility] ER in December 2023. Wasn't admitted. Received antibiotic and steroid and breathing treatment. Received nebulizer at this time. Hasn't had to use nebulizer. Admits to occasional MITCHELL. Will feel the dyspnea more when doing work and bending over. Admits to occasional GERD. Admits to rhinorrhea, PND, and sinus congestion. Denies cough, wheezing, fevers, chill, nightsweats, epistaxis, LE edema, weight loss Wears 2LNC with sleep. DME: [employer] Tries to avoid being outside in the heat and humidity. Checks SpO2 at home. Lowest it has been is 88%, will do breathing exercises and this improves to 93-94% within a few minutes. Current therapy: Albuterol nebulizer as needed, Albuterol inhaler as needed, last used a couple weeks ago Flonase loratadine Mucinex Trelegy 200 Here with ROS: Review of Systems Constitutional: Negative for chills, diaphoresis, fever and weight loss. HENT: Positive for congestion. Negative for sinus pain. Respiratory: Positive for shortness of breath. Negative for cough, hemoptysis, sputum production and wheezing. Cardiovascular: Positive for PND. Negative for chest pain and leg swelling. Gastrointestinal: Positive for heartburn. PAST MEDICAL HISTORY No date: Basal cell cancer Comment: right ear No date: Cataract Comment: right eye No date: Diverticulosis of colon (without mention of hemorrhage) No date: Glaucoma No date: High cholesterol No date: Hypertension No date: Personal history of colonic polyps No date: Squamous cell carcinoma Comment: right forearm Allergies: Anesthesia S/I-40 (* Other: See Comments Comment:With use of anesthesia knocks him out, doesn't need much per . docusate sodium (COLACE) 100 mg capsule once daily. guaiFENesin (MUCINEX) 600 mg 12 hr tablet Take 2 tablets by mouth two times a day. albuterol (PROVENTIL) 2.5 mg /3 mL (0.083 %) nebulizer solution Use 3 mL via nebulizer every 4 hours as needed for wheezing/shortness of breath. Use over 5-15minutes. guaiFENesin (MUCINEX) 600 mg 12 hr tablet Take 2 tablets by mouth two times a day. lovastatin 40 mg tablet Take 1 tablet by mouth daily at bedtime. TRELEGY ELLIPTA 200-62.5-25 mcg inhalation powder USE 1 INHALATION BY MOUTH ONCE DAILY AT THE SAME TIME EACH DAY DIRECTED fluticasone (FLONASE) 50 mcg/actuation nasal spray Use 1-2 Sprays in each nostril once daily. albuterol HFA (PROAIR HFA) 90 mcg/actuation inhaler Inhale 2 Puffs by mouth every 4 hours as neededfor wheezing/shortness of breath. Take as directed OXYGEN, HOME THERAPY, 2 L/min by Nasal Cannula route continuous. vit A,C,Y-Hmnn-Otjdjn (PRESERVISION AREDS) 2,148 mcg-113 mg-45 mg-17.4mg tab Take 1 tablet by mouthtwice daily. aspirin, enteric coated (ASPIRIN, ENTERIC COATED) 81 mg EC tablet Take 81 mg by mouth once daily. Indications: prevention of transient ischemic attack acetaminophen (TYLENOL) 500 mg tablet Take 2 tablets by mouth every 6 hours as needed for pain. Indications: pain Propylene Glycol-Glycerin 1-0.3 % drop Use in both eyes. TIMOLOL MALEATE OPHTHALMIC Use in eyes. Left eye Social History Tobacco Use Smoking status: Former Current packs/day: 0.00 Average packs/day: 0.5 packs/day for 40.0 years (20.0 ttl pk-yrs) Types: Cigarettes Start date: 08/25/1982 Quit date: 08/25/2022 Years since quittin.7 Smokeless tobacco: Never Tobacco comments: Pt stopped smoking the day he was admitted into the hospital. Vaping Use Vaping status: Never Used Substance Use Topics Alcohol use: No Comment: rare Drug use: No Family History Problem Relation Age of Onset Heart Mother age 65 Diabetes Father age 89 Cancer Sister breast PAST SURGICAL HISTORY age 60: COLONOSCOPY FLX DX W/COLLJ SPEC WHEN PFRMD Comment: Colonoscopy 01/05/12: COLONOSCOPY FLX DX W/COLLJ SPEC WHEN PFRMD Comment: repeat 5 years No date: PROSTATECTOMY;RADICAL RETROPUBIC No date: REPAIR RETINAL DETACHMENT SCLERAL BUCKLING Comment: Scleral Buckle I reviewed the past medical history, family history, social history and surgical history with changes noted above and updated in EMR. IMMUNIZATIONS Immunization History Administered Date(s) Administered COVID-19 original vaccine, age 12+ yr, monovalent (Pawzii-Backplane - PURPLE TOP) 11/05/2020 11/26/2020 08/12/2021 influenza (HD-IIV3) vaccine, age 65+ yr, high dose, trivalent, PF (FLUZONE HIGH-DOSE) 05/26/2016 influenza (HD-IIV4) vaccine, age 65+ yr, high dose, quadrivalent, PF (FLUZONE HIGH-DOSE) 07/02/2021 06/20/2023 influenza vaccine, unspecified formulation 06/22/2011 07/09/2012 pneumococcal conjugate (PCV13) vaccine, 13 valent (PREVNAR 13) 05/26/2016 pneumococcal conjugate (PCV20) vaccine, 20 valent (PREVNAR 20) 05/09/2024 pneumococcal polysaccharide (PPV23) vaccine, 23 valent (PNEUMOVAX 23) 08/28/2009 tetanus diphtheria (Td) vaccine, age 7+ yr, 5 Lf tetanus, PF (TENIVAC) 11/19/2018 PHYSICAL EXAMINATION: BP 144/94 (BP Site: Right Arm, BP Position: Sitting, BP Cuff Size: Regular Adult) Pulse 86 Temp36.2 C (97.2 F) (Temporal) Resp 15 Ht 172.7 cm (5' 8) Wt 59 kg (130 lb 1.6 oz) SpO2 97% BMI 19.78 kg/m O2: RA Physical Exam Vitals reviewed. Constitutional: General: He is not in acute distress. Appearance: Normal appearance. He is not ill-appearing, toxic-appearing or diaphoretic. HENT: Head: Normocephalic and atraumatic. Nose: Nose normal. No congestion or rhinorrhea. Mouth/Throat: Lips: Pickwick. No lesions. Mouth: Mucous membranes are moist. Dentition: Has dentures (partial). Tongue: No lesions. Tongue does not deviate from midline. Palate: No lesions. Pharynx: Oropharynx is clear. Uvula midline. No pharyngeal swelling, oropharyngeal exudate, posterior oropharyngeal erythema or uvula swelling. Eyes: Conjunctiva/sclera: Conjunctivae normal. Pupils: Pupils are equal, round, and reactive to light. Cardiovascular: Rate and Rhythm: Normal rate and regular rhythm. Pulses: Normal pulses. Heart sounds: Normal heart sounds. No murmur heard. No friction rub. No gallop. Pulmonary: Effort: Pulmonary effort is normal. No respiratory distress. Breath sounds: Normal breath sounds and air entry. No stridor. No decreased breath sounds, wheezing, rhonchi or rales. Musculoskeletal: Right lower leg: No edema. Left lower leg: No edema. Skin: General: Skin is warm and dry. Capillary Refill: Capillary refill takes less than 2 seconds. Neurological: General: No focal deficit present. Mental Status: He is alert and oriented to person, place, and time. Mental status is at baseline. Psychiatric: Mood and Affect: Mood normal. Behavior: Behavior normal. Thought Content: Thought content normal. Judgment: Judgment normal. 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 Spirometry results were repeatable. IMPRESSION: Spirometry indicates very severe obstruction. There is no significant bronchodilator response. Clinical improvement following bronchodilator therapy may occur with limited spirometric improvement. The TLC is normal. The RV and RV/TLC are elevated indicating air trapping. The diffusing capacity is moderately reduced. The presence of a reduced lung diffusing capacity - that does not normalize when measured independent of alveolar volume (kCO) suggests a parenchymal or pulmonary vascular disorder. No comparison studies. 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 Rodríguez Age: 77 : 1945 Sex: Male Race: Height: 68.00 Inches Weight: 124.00 Lbs BSA: 1.67 Order IDs: [id number] Requested Test(s): Spirometry with dilator if obstructed,Lung Volumes,Lung Diffusion Capacity (DLCO) Diagnosis: J43.9^Pulmonary emphysema, unspecified emphysema type (HCC)^ICD-10-CM Dyspnea: After any exertion Cough: No Cough Wheeze: No Wheeze Tbco Prod: Cigarette Yrs Smk: 25.0 Pks/Day: 0.5 Yrs Quit: 1.0 Medications: TRELEGY/ ALBUTEROL/ ASPIRIN/ HOME O2 Post Test Comments: Pt identified by name and birthdate Pt unable to achieve 90% VC for duffusion test but tests were reproducable All lung volume repeatabilty criteria met Aerosol Albuterol 0.83% used as bronchodilator The patient did not use any respiratory medications prior to testing. Spirometry results were repeatable. Review Status: Not Reviewed Pre-Bronch Post-Bronch Pred Actual %Pred Actual %Chng SPIROMETRY FVC (L) 3.69 2.60 70 2.87 10 FEV1 (L) 2.76 0.99 35 0.99 FEV1/FVC (%) 75 38 50 34 -9 FEF 25% (L/sec) 5.77 0.78 13 0.81 3 FEF 50% (L/sec) 3.13 0.36 11 0.38 5 FEF 75% (L/sec) 0.50 0.18 35 0.21 19 FEF 25-75% (L/sec) 2.01 0.33 16 0.36 9 FEF Max (L/sec) 7.04 2.47 35 2.23 -9 FIVC (L) 2.47 2.72 10 FIF 50% (L/sec) 4.25 4.73 111 4.85 2 FIF Max (L/sec) 4.74 4.89 2 FET (sec) 11.45 12.85 12 Back Extrap Vol (L) 0.15 0.11 -27 Time To FEFmax (sec) 0.135 0.164 21 LUNG VOLUMES SVC (L) 4.14 2.12 51 IC (L) 3.08 1.16 37 ERV (L) 1.06 0.94 88 TGV (L) 3.56 6.47 181 RV (Pleth) (L) 2.51 5.51 220 TLC (Pleth) (L) 6.65 7.63 114 RV/TLC (Pleth) (%) 38 72 189 DIFFUSION DLCOunc (ml/min/mmHg) 21.22 10.57 49 DL/VA (ml/min/mmHg/L) 3.80 2.21 58 VA (L) 6.43 4.79 74 BHT (sec) 11.93 IVC (L) 1.91 TLC (SB) (L) 4.94 AIRWAYS RESISTANCE Raw (cmH2O/L/s) 1.45 5.85 404 Gaw (L/s/cmH2O) 1.03 0.17 16 sRaw (cmH2O*s) 4.76 38.33 805 sGaw (1/cmH2O*s) 0.20 0.03 12 CXR Last XR Chest - Impression Only XR CHEST 2V FRONTAL/LAT Exam End: 03/01/2023 2:55 PM (Final result) Impression: IMPRESSION: Extensive bilateral pulmonary emphysema with bullous disease in the left lower lung. ... CT Chest CT Chest other findings: Last CT Chest - Impression Only CT CHEST WO IVCON Exam End: 10/21/2022 3:11 PM (Final result) Impression: IMPRESSION: 1. Moderate size left-sided hydropneumothorax. The size of the pneumothorax is unchanged since previous exam. The size of the pleural effusion has increased since previous exam. 2. Moderate emphysematous changes. 3. Patchy consolidation within the medial aspect of the right lower lobe suspicious for an infiltrate. ... Echo No results found for this or any previous visit (from the past 4464 hour(s)). Arterial blood gas: No results found for: PH, PCO2, PO2, HCO3, BE, LACT Assessment/Plan ASSESSMENT/PLAN: 1. Pulmonary emphysema, unspecified emphysema type (HCC) - ICD9: 492.8, ICD10: J43.9 (primary diagnosis) -10/21/2022 PFTs indicated severe obstruction, an elevated RV/TLC indicating air trapping, and a DLCO of 49 -Stable -Continue Trelegy Ellipta 1 puff once daily. Rinse mouth after every use. -Continue Albuterol (Proair, Proventil, or Ventolin) MDI - 1-2 puffs every 6 hours as needed for wheezing or shortness of breath. You can also use 1-2 puffs ten minutes before exercise or exertion. Use with your spacer. Or continue Albuterol nebulizer solution - nebulize 1 vial every 6 hours as needed for wheezing or shortness of breath. You can also nebulize 1 vial prior to exertion or exercise. -Completed pulmonary rehab -Ordered updated PFTs and oximetry with ambulation prior to next office visit -Ordered CXR -Recommend he receive RSV and annual influenza vaccine - XR CHEST 2V FRONTAL/LAT - SPIROMETRY BASELINE ONLY - LUNG DIFFUSION CAPACITY (DLCO) - LUNG VOLUMES - OXIMETRY WITH AMBULATION 2. Nocturnal hypoxia - ICD9: 327.24, ICD10: G47.34 -Patient is compliant and benefits from supplemental oxygen with all sleep. 3. History of pneumothorax - ICD9: V12.69, ICD10: Z87.09 -No complaints of chest pain -Will get routine CXR - XR CHEST 2V FRONTAL/LAT 4. Chronic rhinitis - ICD9: 472.0, ICD10: J31.0 -Admits to sinus congestion, rhinorrhea, and PND -Continue daily Claritin -Start taking Fluticasone (Flonase) 2 spray(s) (50 mcg/spray) per nostril once daily. 5. Need for pneumococcal 20-valent conjugate vaccination - ICD9: V03.82, ICD10: Z23 -Prevnar 20 vaccine ordered and given in office today - PNEUMOCOCCAL VACCINE, 20 VALENT (PREVNAR 20) 6. Former smoker - ICD9: V15.82, ICD10: Z87.891 -Continue smoking cessation 7. Hypertension, unspecified type - ICD9: 401.9, ICD10: I10 -BP 144/94. Recheck BP 144/98 -Denies chest pain, lightheadedness, or dizziness -Instructed the patient to follow up with PCP for management. - Recommend home blood pressure monitoring, to bring results to next visit with PCP RTC in [address] Drake Amaral I have discussed the above recommendations in detail with the patient. Patient verbalizes understanding and is in agreement with plan as stated above. I spent a total of 39 minutes on the date of the service which included preparing to see the patient, [id number] patient care, completing clinical documentation, obtaining and/or reviewing separately obtained history, performing a medically appropriate examination, counseling and educating the pat ient/family/caregiver, and ordering medications, tests, or procedures. Renetta Chery APRN.CNP Pulmonary Medicine documented in this encounterL[facility]24 NoteHNO ID: [id number] Author: RENETTA CHERY APRN.LAST GREASER Service: ? Author Type: Nurse Practitioner Type: Progress Notes Filed: 05/09/2024 14:22 Note Text: Patient: Dimitri Painter PCP: Otilia Lopez MD CC: follow up HPI: Dimitri Painter is a 78 year old male former smoker, 20 pack years (quitting 2021) with PMH significant for chronic hypoxemic respiratory failure, pulmonary emphysema, pneumothorax, chronic rhinitis, prostate cancer, and HLD. Last Pulmonary Clinic visit was with Dr. Drake Amaral on 10/30/2023. The plan from this office visit was: -Obtain repeat oximetry with ambulation, nocturnal oximetry - Continue Trelegy, and as needed albuterol. Completed pulmonary rehab - Continue smoking cessation - Continue Claritin Today, the patient feels good since last office visit. Went to [facility] ER in December 2023. Wasn't admitted. Received antibiotic and steroid and breathing treatment. Received nebulizer at this time. Hasn't had to use nebulizer. Admits to occasional MITCHELL. Will feel the dyspnea more when doing work and bending over. Admits to occasional GERD. Admits to rhinorrhea, PND, and sinus congestion. Denies cough, wheezing, fevers, chill, nightsweats, epistaxis, LE edema, weight loss Wears 2LNC with sleep. DME: [employer] Tries to avoid being outside in the heat and humidity. Checks SpO2 at home. Lowest it has been is 88%, will do breathing exercises and this improves to 93-94% within a few minutes. Current therapy: Albuterol nebulizer as needed, Albuterol inhaler as needed, last used a couple weeks ago Flonase loratadine Mucinex Trelegy 200 Here with ROS: Review of Systems Constitutional: Negative for chills, diaphoresis, fever and weight loss. HENT: Positive for congestion. Negative for sinus pain. Respiratory: Positive for shortness of breath. Negative for cough, hemoptysis, sputum production and wheezing. Cardiovascular: Positive for PND. Negative for chest pain and leg swelling. Gastrointestinal: Positive for heartburn. PAST MEDICAL HISTORY No date: Basal cell cancer Comment: right ear No date: Cataract Comment: right eye No date: Diverticulosis of colon (without mention of hemorrhage) No date: Glaucoma No date: High cholesterol No date: Hypertension No date: Personal history of colonic polyps No date: Squamous cell carcinoma Comment: right forearm Allergies: Anesthesia S/I-40 (* Other: See Comments Comment:With use of anesthesia knocks him out, doesn't need much per . docusate sodium (COLACE) 100 mg capsule once daily. guaiFENesin (MUCINEX) 600 mg 12 hr tablet Take 2 tablets by mouth two times a day. albuterol (PROVENTIL) 2.5 mg /3 mL (0.083 %) nebulizer solution Use 3 mL via nebulizer every 4 hours as needed for wheezing/shortness of breath. Use over 5-15minutes. guaiFENesin (MUCINEX) 600 mg 12 hr tablet Take 2 tablets by mouth two times a day. lovastatin 40 mg tablet Take 1 tablet by mouth daily at bedtime. TRELEGY ELLIPTA 200-62.5-25 mcg inhalation powder USE 1 INHALATION BY MOUTH ONCE DAILY AT THE SAME TIME EACH DAY DIRECTED fluticasone (FLONASE) 50 mcg/actuation nasal spray Use 1-2 Sprays in each nostril once daily. albuterol HFA (PROAIR HFA) 90 mcg/actuation inhaler Inhale 2 Puffs by mouth every 4 hours as needed for wheezing/shortness of breath. Take as directed OXYGEN, HOME THERAPY, 2 L/min by Nasal Cannula route continuous. vit A,C,N-Fege-Hvnkwk (PRESERVISION AREDS) 2,148 mcg-113 mg-45 mg-17.4mg tab Take 1 tablet by mouth twice daily. aspirin, enteric coated (ASPIRIN, ENTERIC COATED) 81 mg EC tablet Take 81 mg by mouth once daily. Indications: prevention of transient ischemic attack acetaminophen (TYLENOL) 500 mg tablet Take 2 tablets by mouth every 6 hours as needed for pain. Indications: pain Propylene Glycol-Glycerin 1-0.3 % drop Use in both eyes. TIMOLOL MALEATE OPHTHALMIC Use in eyes. Left eye Social History Tobacco Use Smoking status: Former Current packs/day: 0.00 Average packs/day: 0.5 packs/day for 40.0 years (20.0 ttl pk-yrs) Types: Cigarettes Start date: 08/25/1982 Quit date: 08/25/2022 Years since quittin.7 Smokeless tobacco: Never Tobacco comments: Pt stopped smoking the day he was admitted into the hospital. Vaping Use Vaping status: Never Used Substance Use Topics Alcohol use: No Comment: rare Drug use: No Family History Problem Relation Age of Onset Heart Mother age 65 Diabetes Father age 89 Cancer Sister breast PAST SURGICAL HISTORY age 60: COLONOSCOPY FLX DX W/COLLJ SPEC WHEN PFRMD Comment: Colonoscopy 01/05/12: COLONOSCOPY FLX DX W/COLLJ SPEC WHEN PFRMD Comment: repeat 5 years No date: PROSTATECTOMY;RADICAL RETROPUBIC No date: REPAIR RETINAL DETACHMENT SCLERAL BUCKLING Comment: Scleral Buckle I reviewed the past medical history, family history, social history and surgical (more content not included)...[facility]06-21-2024 Telephone encounter Note* Telephone Encounter - Ochoa Hunt MA - 02/16/2024 7:52 AM EDT Order faxed to [facility]. Ochoa Hunt MA [facility]06-21-2024 Miscellaneous Notes* Telephone Encounter - Ochoa Hunt MA - 02/16/2024 7:52 AM EDT Order faxed to [facility]. Ochoa Hunt MA * Telephone Encounter - Jens Candelaria APRN.CNP - 02/16/2024 7:27 AM EDT Order printed. Jens Candelaria APRN.CNP * Telephone Encounter - Nova Hunter LPN - 02/14/2024 10:01 AM EDT Carmen from [facility] calling asking for new rx for patient nebulizer. Received order 01/25/2024 says nebulizer. Needs to have nebulizer with compressor. Pending new order to file. Aware PCPis out until 02/16/2024. Please advise documented in this [facility]06-21-[facility]24 Telephone encounter Note * Telephone Encounter - Jens Candelaria APRN.CNP - 02/16/2024 7:27 AM EDT Order printed. Jens Candelaria APRN.CNP [facility]06-19-2024 Telephone encounter Note* Telephone Encounter - Nova Hunter LPN - 02/14/2024 10:01 AM EDT Carmen from [facility] calling asking for new rx for patient nebulizer. Received order 01/25/2024 says nebulizer. Needs to have nebulizer with compressor. Pending new order to file. Aware PCPis out until 02/16/2024. Please advise [facility]05-30-2024 History of Present illness Narrative* Otilia Lopez MD - 01/25/2024 2:20 PM EDT Chief Complaint Patient presents with: ED Follow-up HPI Dimitri Painter is a 78 year old male who presents here today for ER Follow Up. Here with his spouse Kasie. Pt thinks that the pollen and his allergies triggered this congestion and SOB. He went to for SOB and was sent to [facility] ER on 01/06/24 SOB. He had CXR which did not show any obvious pneumonia or collapsed lung. Was treated in ER with albuterol tx while in ER and sent home with Zpak and 7 days of Prednisone. He was advised to follow up with PCP or Pulmonology and to discuss getting nebulizer for home use. He was negative for covid, flu and RSV. Pt follows with Dr. Amaral, member services representative for chronic hypoxemic respiratory failure and emphysema. Pt states he is feeling good, back to normal now. He is checking his Oxygen levels at home regularly. He is using oxygen 2 L at bedtime. Will occ use the oxygen during the day if he is really active or if it is hot and humid. Using his inhalers. Only uses the rescue inhaler maybe once a week. Has the most problem when he is bent over for long period of time. Is using Mucinex 600 mg- 1200 mg BID. Below copied from [facility]: Chief Complaint: Shortness of Breath Informant: patient and family Onset/Context/Timing Onset: Days Context: gradual Timing: Continuous Current Severity: Mild Maximum Severity: Mild Worsened by: Nothing Relieved by: Nothing Associated Symptoms cough; Negative for fever or sore throat Chest Pain: Positive for None Narrative Narrative: 78-year-old male history of COPD and asthma. Prior pneumothorax a year and a half ago requiring a chest tube. States been more short of breath last several days. No chest pain. No history of DVT or PE. No hemoptysis. No leg pain or swelling. No recent hospitalization or surgery. He has had a nonproductive cough. Denies fever. Patient is on oxygen at home 2 L at night. He has been wearing it during the day now also. Exam Narrative: 69-year-old male no acute distress vital signs stable afebrile. Pulse ox 94% onroom air. Daughter at bedside. H EENT exam unremarkable. Mytrex membranes. Neck nontender no JVD. No lymphadenopathy. Lungs coarse breath sounds bilaterally with rhonchi. No rales. No excessive wheezing. Equal and symmetr ical. Chest wall nontender. No crepitance. No subcu air. Heart tachycardic rate about 120 no murmur. Abdomen soft nontender. Moving all 4 extremities. Calves are nontender without edema or cords. 5-5grip strength. Dorsi plantarflexion intact. Neurologically is awake and alert no focal motor deficits. Medical decision making narrative: 78-year-old male with shortness of breath history of COPD viral pneumonia versusCOPD flare versus cardiac etiology. Versus even a pneumothorax which she has had before in the past. Chest x-ray and cardiac workup. Solu-Medrol IV with DuoNeb and albuterol aerosols. Repeat exam 415 patient is doing much better. He was treated with aerosols and Solu-Medrol. He saidhis breathing is improved. Patient be discharged home. He has a new cough he is not producing any sputum he placed on Zithromax first dose given here. Prednisone 40 mg a day for the next 7 days. Outpatient follow-up with his primary care physician and/or his member services representative. We did discuss using his inhaler at home and possibly discussed with his primary care physician about getting a nebulizer. Past medical history, appointments, medications, allergies reviewed. Previous Medical History PAST MEDICAL HISTORY Diagnosis Date Basal cell cancer right ear Cataract right eye Diverticulosis of colon (without mention of hemorrhage) Glaucoma High cholesterol Hypertension Personal history of colonic polyps Squamous cell carcinoma right forearm Previous Surgical History PAST SURGICAL HISTORY Procedure Laterality Date COLONOSCOPY FLX DX W/COLLJ SPEC WHEN PFRMD age 59 Colonoscopy COLONOSCOPY FLX DX W/COLLJ SPEC WHEN PFRMD 01/05/12 repeat 5 years PROSTATECTOMY;RADICAL RETROPUBIC REPAIR RETINAL DETACHMENT SCLERAL BUCKLING Scleral Buckle Family History FAMILY HISTORY Problem Relation Age of Onset Heart Mother age 65 Diabetes Father age 89 Cancer Sister breast Patient Allergies ALLERGIES Allergen Reactions Anesthesia S/I-40 (* Other: See Comments With use of anesthesia knocks him out, doesn't need much per . Current Medications Current Outpatient Medications on File Prior to Visit Medication Sig lovastatin 40 mg tablet Take 1 tablet by mouth daily at bedtime. TRELEGY ELLIPTA 200-62.5-25 mcg inhalation powder USE 1 INHALATION BY MOUTH ONCE DAILY AT THE SAME TIME EACH DAY DIRECTED fluticasone (FLONASE) 50 mcg/actuation nasal spray Use 1-2 Sprays in each nostril once daily. albuterol HFA (PROAIR HFA) 90 mcg/actuation inhaler Inhale 2 Puffs by mouth every 4 hours as neededfor wheezing/shortness of breath. Take as directed OXYGEN, HOME THERAPY, 2 L/min by Nasal Cannula route continuous. vit A,C,X-Pmdv-Vpanmv (PRESERVISION AREDS) 2,148 mcg-113 mg-45 mg-17.4mg tab Take 1 tablet by mouthtwice daily. aspirin, enteric coated (ASPIRIN, ENTERIC COATED) 81 mg EC tablet Take 81 mg by mouth once daily. Indications: prevention of transient ischemic attack acetaminophen (TYLENOL) 500 mg tablet Take 2 tablets by mouth every 6 hours as needed for pain. Indications: pain Propylene Glycol-Glycerin 1-0.3 % drop Use in both eyes. TIMOLOL MALEATE OPHTHALMIC Use in eyes. Left eye No current facility-administered medications on file prior to visit. Social History Social History Tobacco Use Smoking status: Former Packs/day: 0.50 Years: 40.00 Additional pack years: 0.00 Total pack years: 20.00 Types: Cigarettes Quit date: 08/25/2022 Years since quittin.4 Smokeless tobacco: Never Tobacco comments: Pt stopped smoking the day he was admitted into the hospital. Vaping Use Vaping Use: Never used Substance Use Topics Alcohol use: No Comment: rare Drug use: No EXAM: BP 120/74 Pulse 100 Resp 16 Wt 59.9 kg (132 lb) SpO2 100% BMI 22.66 kg/m General Appearance: Well appearing, alert, in no acute distress, well-hydrated, well nourished.. Lungs: Lungs clear to auscultation. No wheezing, rhonchi, rales.. Heart: RRR without murmur, gallop, or rubs. No ectopy. Health Maintenance List Shingrix Vaccine(1 of 2) Never done RSV Vaccine(1 - 1-dose 60+ series) Never done DTaP,Tdap,Td Vaccine(1 - Tdap) due on 11/20/2018 Covid-19 Vaccine( season) due on 06/20/2024 Annual PCP Team Chronic Disease Visit due on 01/24/2025 Diabetes Screening due on 12/17/2026 Spirometry Completed Influenza Vaccine Completed Advance Directive Discussion Completed Behavioral Health Screening Completed Pneumococcal Vaccine: 65+ Completed HPV Vaccine Aged Out Fecal Occult Blood Discontinued Colonoscopy Discontinued Data reviewed Epic ASSESSMENT/PLAN: 1. Pulmonary emphysema, unspecified emphysema type (HCC) - ICD9: 492.8, ICD10: J43.9 Continue current medications. Continue with Pulmonlogist - GUAIFENESIN ER 600 MG TABLET, EXTENDED RELEASE 12 HR - NEBULIZER - ALBUTEROL SULFATE 2.5 MG/3 ML (0.083 %) SOLUTION FOR NEBULIZATION - GUAIFENESIN ER 600 MG TABLET, EXTENDED RELEASE 12 HR Follow up as needed. I agree with the Chief Complaint, ROS, and Past Histories independently gathered by the clinical clinical support specialist and the remaining scribed note accurately describes my personal service to the patient. Medical Decision Making: Problems: Low: Stable chronic illness Risk: Moderate: Drug management Medical Decision Making Level: 3 - Low Otilia Lpoez MD The documentation for this note was completed by Lyssa Lewis MA acting as scribe for Otilia Lopez MD. January 25, 2024 2:02 PM. Lyssa Lewis MA documented in this [facility]05-30-[facility]24 NoteHNO ID: [id number] Author: OTILIA LOPEZ MD Service: ? Author Type: Physician Type: Progress Notes Filed: 01/25/2024 16:54 Note Text: Chief Complaint Patient presents with: ED Follow-up HPI Dimitri Painter is a 78 year old male who presents here today for ER Follow Up. Here with his spouse Kasie. Pt thinks that the pollen and his allergies triggered this congestion and SOB. He went to for SOB and was sent to [facility] ER on 01/06/24 SOB. He had CXR which did not show any obvious pneumonia or collapsed lung. Was treated in ER with albuterol tx while in ER and sent home with Zpak and 7 days of Prednisone. He was advised to follow up with PCP or Pulmonology and to discuss getting nebulizer for home use. He was negative for covid, flu and RSV. Pt follows with Dr. Amaral, member services representative for chronic hypoxemic respiratory failure and emphysema. Pt states he is feeling good, back to normal now. He is checking his Oxygen levels at home regularly. He is using oxygen 2 L at bedtime. Will occ use the oxygen during the day if he is really active or if it is hot and humid. Using his inhalers. Only uses the rescue inhaler maybe once a week. Has the most problem when he is bent over for long period of time. Is using Mucinex 600 mg-1200 mg BID. Below copied from [facility]: Chief Complaint: Shortness of Breath Informant: patient and family Onset/Context/Timing Onset: Days Context: gradual Timing: Continuous Current Severity: Mild Maximum Severity: Mild Worsened by: Nothing Relieved by: Nothing Associated Symptoms cough; Negative for fever or sore throat Chest Pain: Positive for None Narrative Narrative: 78-year-old male history of COPD and asthma. Prior pneumothorax a year and a half ago requiring a chest tube. States been more short of breath last several days. No chest pain. No history of DVT or PE. No hemoptysis. No leg pain or swelling. No recent hospitalization or surgery. He has had a nonproductive cough. Denies fever. Patient is on oxygen at home 2 L at night. He has been wearing it during the day now also. Exam Narrative: 69-year-old male no acute distress vital signs stable afebrile. Pulse ox 94% onroom air. Daughter at bedside. H EENT exam unremarkable. Mytrex membranes. Neck nontender no JVD. No lymphadenopathy. Lungs coarse breath sounds bilaterally with rhonchi. No rales. No excessive wheezing. Equal and symmetrical. Chest wall nontender. No crepitance. No subcu air. Heart tachycardic rate about 120 no murmur. Abdomen soft nontender. Moving all 4 extremities. Calves are nontender without edema or cords. 5-5 waste baler strength. Dorsi plantarflexion intact. Neurologically is awake and alert no focal motor deficits. Medical decision making narrative: 78-year-old male with shortness of breath history of COPD viral pneumonia versusCOPD flare versus cardiac etiology. Versus even a pneumothorax which she has had before in the past. Chest x-ray and cardiac workup. Solu-Medrol IV with DuoNeb and albuterol aerosols. Repeat exam 415 patient is doing much better. He was treated with aerosols and Solu-Medrol. He said his breathing is improved. Patient be discharged home. He has a new cough he is not producing any sputum he placed on Zithromax first dose given here. Prednisone 40 mg a day for the next 7 days. Outpatient follow-up with his primary care physician and/or his member services representative. We did discuss using his inhaler at home and possibly discussed with his primary care physician about getting a nebulizer. Past medical history, appointments, medications, allergies reviewed. Previous Medical History PAST MEDICAL HISTORY Diagnosis Date Basal cell cancer right ear Cataract right eye Diverticulosis of colon (without mention of hemorrhage) Glaucoma High cholesterol Hypertension Personal history of colonic polyps Squamous cell carcinoma right forearm Previous Surgical History PAST SURGICAL HISTORY Procedure Laterality Date COLONOSCOPY FLX DX W/COLLJ SPEC WHEN PFRMD age 59 Colonoscopy COLONOSCOPY FLX DX W/COLLJ SPEC WHEN PFRMD 01/05/12 repeat 5 years PROSTATECTOMY;RADICAL RETROPUBIC REPAIR RETINAL DETACHMENT SCLERAL BUCKLING Scleral Buckle Family History FAMILY HISTORY Problem Relation Age of Onset Heart Mother age 65 Diabetes Father age 89 Cancer Sister breast Patient Allergies ALLERGIES Allergen Reactions Anesthesia S/I-40 (* Other: See Comments With use of anesthesia knocks him out, doesn't need much per . Current Medications Current Outpatient Medications on File Prior to Visit Medication Sig lovastatin 40 mg tablet Take 1 tablet by mouth daily at bedtime. TRELEGY ELLIPTA 200-62.5-25 mcg inhalation powder USE 1 INHALATION BY MOUTH ONCE DAILY AT THE SAME TIME EACH DAY DIRECTED fluticasone (FLONASE) 50 mcg/actuation nasal spray Use 1-2 Sprays in each nostril once daily. albuterol HFA ( (more content not included)...[facility] 01-06-2024 Discharge summary Author Amadou Wadsworth [facility] January 06, 2024 4:25pm Note Date/Time January 06, 2024 2:49p [facility] Medical Records Department [address] [place] [address] Emergency Department Summary 01/06/24 MR#: [id number] Acct: [id number] Name: DIMITRI PAINTER Rep #:[id number] : [id number] 78 From: Amadou Wadsworth MD PCP: Dr. Otilia Lopez MD Status:RE G ER Location: ED HPI History of Present Illness Chief Complaint: Shortness of Breath Informant: patient and family Onset/Context/Timing Onset: Days Context: gradual Timing: Continuous Current Severity: Mild Maximum Severity: Mild Worsened by: Nothing Relieved by: Nothing Associated Symptoms cough; Negative for fever or sore throat Chest Pain: Positive for None Narrative Narrative: 78-year-old male history of COPD and asthma. Prior pneumothorax a year and a half ago requiring a chest tube. States been more short of breath last several days. No chest pain. No history of DVT or PE. No hemoptysis. No leg pain or swelling. No recent hospitalization or surgery. He has had a nonproductive cough. Denies fever. Patient is on oxygen at home 2 L at night. He has been wearing it during the day now also. PE Risk Factors: Negative for Cancer, OCP + Smoking + > 35, Prior DVT or PE, Recent immobilization, Recent surgery or Recent travel Prior similar symptoms: Yes Recent Illness/Hospitalization: No PFSH PFSH Medical History Asthma exacerbation in COPD COPD (chronic obstructive pulmonary disease) Glaucoma High cholesterol Pneumothorax Prostate CA Home Medications artificial tears(hypromellose) 0.3 % eye drops 1 drp EACH EYE BID DRY EYE 08/25/22 [History Last Taken 01/06/24] aspirin 81 mg tablet,delayed release 81 mg PO DAILY HEART HEALTH 08/25/22 [History Last Taken 01/05/24] lovastatin 40 mg tablet 40 mg PO DAILY CHOLESTEROL 08/25/22 [History Last Taken 01/05/24] timolol maleate 0.5 % eye drops 1 drp EACH EYE BID GLUCOMA 08/25/22 [History Last Taken 01/05/24] acetaminophen 325 mg tablet (Tylenol) 1,000 mg PO Q6H PRN Pain 12/13/22 [History Last Taken Unknown] albuterol sulfate 90 mcg/actuation aerosol inhaler 2 puff inhalation Q6H PRN Dyspnea 12/13/22 [History Last Taken 01/05/24] docusate sodium 100 mg capsule (Colace) 100 mg PO DAILY 12/13/22 [History Last Taken 01/05/24] fluticasone fur. 200 mcg-umeclid 62.5 mcg-vilant 25 mcg inhalat.powder (Trelegy Ellipta) 1 inh inhalation DAILY 12/13/22 [History Last Taken 01/05/24] fluticasone propionate 50 mcg/actuation nasal spray,suspension 1 spray intranasal DAILY 12/13/22 [History Last Taken 01/05/24] guaifenesin 600 mg tablet, extended release 12 hr (Mucinex) 600 mg PO BID 12/13/22 [History Last Taken 01/05/24] azithromycin 250 mg tablet (Zithromax) 250 mg PO DAILY 4 days #4 tabs 01/06/24 [Rx Last Taken Unknown] prednisone 20 mg tablet 40 mg (2 x 20 mg) PO DAILY 7 days #14 tabs 01/06/24 [Rx Last Taken Unknown] Allergy/AdvReac Type Severity Reaction Status Date / Time No Known Allergies Allergy Verified 01/06/24 14:15 Family History Other COPD (chronic obstructive pulmonary disease) Heart disease Hypertension Surgical History H/O radical prostatectomy Social History Smoking Status: Former smoker ROS ROS ED ROS Narrative Nonproductive cough. Shortness of breath. No chest pain or fever. Review of Systems ROS Unobtainable: Denies due to encephalopathy Constitutional Constitutional ED: Denies chills or fever(s) Eyes Eyes: Denies blurry vision ENT ENT ED: Denies ear pain, rhinorrhea or sore throat Cardiovascular Cardiovascular: Denies chest pain, palpitations or racing heartbeat Respiratory/Chest Respiratory/Chest: Reports cough and dyspnea; Denies sputum Gastrointestinal Gastrointestinal: Denies abdominal pain, constipation, diarrhea, melena, nausea or vomiting Genitourinary Genitourinary ED: Denies dysuria or hematuria Musculoskeletal Musculoskeletal: Denies arthralgias, back pain, myalgias or neck pain Integumentary Denies abscess or Abrasions Neurologic Neurologic: Denies headache(s) Psychiatric Psychiatric: Denies anxiety Endocrine Endocrinology: Denies cold intolerance Hematologic/Lymphatic Hematologic/Lymphatic: Denies easy bleeding, easy bruising or lymphadenopathy Allergic/Immunologic Allergic/Immunologic ED: Denies mouth swelling, tongue swelling or urticaria EXAM Physical Exam Narrative Exam Narrative: 69-year-old male no acute distress vital signs stable afebrile. Pulse ox 94% onroom air. Daughter at bedside. H EENT exam unremarkable. Mytrex membranes. Neck nontender no JVD. No lymphadenopathy. Lungs coarse breath sounds bilaterally with rhonchi. No rales. No excessive wheezing. Equal and symmetrical. Chest wall nontender. No crepitance. No subcu air. Heart tachycardic rate about 120 no murmur. Abdomen soft nontender. Moving all 4 extremities. Calves are nontender without edema or cords. 5-5 waste baler strength. Dorsi plantarflexion intact. Neurologically is awake and alert no focal motor deficits. Const Vital Signs: 01/06/24 14:13 01/06/24 14:22 01/06/24 14:51 Temperature 97.2 F L Temperature Source Temporal Pulse Rate 121 H 109 H Respiratory Rate 20 H 16 Respiratory Effort Short of Breath Respiratory Depth Normal Respiratory Pattern Normal Blood Pressure 118/83 H Blood Pressure Mean 94 Pulse Ox 94 Oxygen Delivery Method Nasal Cannula Nasal Cannula Oxygen Flow Rate (L/min) 2 2 Positive well nourished and well developed; Negative for obese, cachectic, contractures or unkempt General Appearance ED: well developed and NAD; Negative for unkempt, cachectic, contractures or pallor Nutritional Appearance: Negative for cachectic or obese HEENT Reports moist mucous membranes; Denies dry mucous membranes atraumatic; Negative for trauma or tenderness Mouth ED: No dry mucous membranes Mouth: No dry mucous membranes Eyes PERRL and EOMs intact bilaterally General Eye ED: Negative for pale conjunctiva, scleral icterus or other Neck no lymphadenopathy, supple, no meningeal signs and no JVD General: Negative for tenderness Lymph Lymphatic: Negative for other Chest Wall Chest: Negative for other Resp normal respiratory effort and No clear to auscultation bilaterally Effort and Inspection: Negative for pain with movement Auscultation: rhonchi; Negative for rales, wheezes or diminished lung sounds Cardio regular rhythm, S1 normal heart sound, S2 normal heart sound and no murmurs; Negative for regular rate Rate: tachycardic; Negative for bradycardia GI non-tender, non-distended and no masses Inspection: Negative for other Auscultation: normoactive bowel sounds Palpation: soft; Negative for tender, guarding or rebound tenderness present Back/Spine no CVA tenderness and normal to inspection General Back: Negative for CVA tenderness or tenderness Extremity normal to inspection General Extremety ED: Negative for edema or tenderness General Extremity: Negative for edema Neuro oriented x3 and CN's II-XII intact bilaterally Sensorium / Orientation: alert, oriented to person and oriented to place; Negative for oriented to time, orientation impaired, confused, lethargic or stuporous Speech: speech normal Motor Exam: strength 5/5 throughout; Negative for general weakness or strength abnormal Psych mental status grossly normal Appearance: Negative for unkempt Attitude: No agitated and No other Mood & Affect: Negative for depressed Thought Process: normal thought process Skin no wounds and skin turgor normal General Skin Exam: Negative for jaundice or pallor Lesions: no lesions Rashes: no rashes Trauma: Negative for abrasion or laceration MDM MDM MDM Narrative Medical decision making narrative: 78-year-old male with shortness of breath history of COPD viral pneumonia versusCOPD flare versus cardiac etiology. Versus even a pneumothorax which she has had before in the past. Chest x-ray and cardiac workup. Solu-Medrol IV with DuoNeb and albuterol aerosols. Repeat exam 415 patient is doing much better. He was treated with aerosols and Solu-Medrol. He said his breathing is improved. Patient be discharged home. He has a new cough he is not producing any sputum he placed on Zithromax first dose given here. Prednisone 40 mg a day for the next 7 days. Outpatient follow-up with his primary care physician and/or his member services representative. We did discuss using his inhaler at home and possibly discussed with his primary care physician about getting a nebulizer. History & Record Review Discussion w/independent historian: Patient and Family Additional record(s) reviewed:: Prior inpatient record, Prior outpatient record,Prior ED visit and Prior labs Lab Data Attestation: I reviewed the patient's lab results. Lab results narrative: CBC shows a white count of 9. H&H of 14 and 45. Platelets are slightly low at 143. History of thrombocytopenia. Chemistry shows sodium 132. Gap 6. Normal BUN and creatinine. Glucose 100. Troponin 6. Labs: Laboratory Results - last 24 hr 01/06/24 15:15 WBC 9.9 RBC 4.55 L Hgb 14.5 Hct 45.0 MCV 98.9 H MCH 31.9 MCHC 32.2 RDW Std Deviation 50.1 H RDW Coeff of Samira 13.7 Plt Count 143 L MPV 9.3 Immature Gran % (Auto) 0.700 Neut % (Auto) 82.9 H Lymph % (Auto) 7.8 L [place] % (Auto) 7.5 Eos % (Auto) 0.7 Baso % (Auto) 0.4 Absolute Neuts (auto) 8.2 H Absolute Lymphs (auto) 0.77 L Nucleated RBC % 0 Sodium 132 L Potassium 4.2 Chloride 98 Carbon Dioxide 28.0 Anion Gap 6 BUN 11 Creatinine 0.72 Estim Creat Clear Calc 64.64 Est GFR (MDRD) Af Amer 136 Est GFR (MDRD) Non-Af 113 BUN/Creatinine Ratio 15.4 Glucose 100 Calcium 9.3 Troponin I High Sens 6 Radiography Chest X-Ray - ED: 2 View, Read by ED Physician, Read by Radiologist, Heart, Lungs, Mediastinum, Bony Structures, No Acute Disease and Chronic Changes Diagnostic Testing: Clinical Impression(s) from Imaging Studies Chest X-Ray 01/06/24 15:40 IMPRESSION: Hyperaeration. Electronically Signed: Obinna Ross DO at 16:04 EDT Reading Location ID and State: [facility] / [place] Tel [phone], Service support , Chest x-ray, 2 view, interpreted by myself and the radiologist shows chronic changes no acute pneumonia. No effusions. No pneumothorax seen. Rhythm Strip Rhythm Strip: Sinus Tach Rate: 111 Ectopy: None EKG Initial EKG: Attestation: I personally reviewed and interpreted this EKG as follows: Interpretation: Sinus Rhythm, No Acute Injury Pattern and Sinus Tachycardia Comments: Sinus tachycardia rate of 111. No acute signs of MT, ischemia or dysrhythmia. Discharge Plan Triage Chief Complaint: Shortness of Breath ED Provider: Amadou Wadsworth Dx/Rx/DC Orders Clinical Impression: History of pneumothorax, COPD exacerbation Instructions: ED COPD Flare Prescriptions: New azithromycin [Zithromax] 250 mg tablet 250 mg PO DAILY 4 Days Qty: 4 0RF Rx Instructions: start on day 2 of therapy prednisone 20 mg tablet 40 mg PO DAILY 7 Days Qty: 14 0RF No Action lovastatin 40 mg tablet 40 mg PO DAILY aspirin 81 mg Tablet,Delayed Release (Dr/Ec) 81 mg PO DAILY timolol maleate 0.5 % drops 1 drp EACH EYE BID GenTeal (hypromellose) 0.3 % Drops 1 drp EACH EYE BID acetaminophen [Tylenol] 325 mg Tablet 1,000 mg PO Q6H PRN (Reason: Pain) docusate sodium [Colace] 100 mg Capsule 100 mg PO DAILY albuterol sulfate 90 mcg/actuation Hfa Aerosol Inhaler 2 puff INHALATION Q6H PRN (Reason: Dyspnea) fluticasone propionate 50 mcg/actuation [place],Suspension 1 spray INTRANASAL DAILY Rx Instructions: administer into each nostril guaifenesin [Mucinex] 600 mg Tablet Extended Release 12hr 600 mg PO BID Trelegy Ellipta 200-62.5-25 mcg Blister With Device 1 inh INHALATION DAILY Primary Care Provider: Otilia Lopez Referrals: Otilia Lopez MD [Primary Care Provider] - 3-5 Days Activity Restrictions/Additional Instructions: Exacerbation of your COPD. Chest x-ray shows no obvious pneumonia or collapsed lung. Use your inhaler as needed. Talk to your primary care physician and/or member services representative about possibly getting a nebulizer for home we will give yourself aerosol treatments with that. The antibiotic Zithromax 1 pill a day starting tomorrow. That will be for 4 more days. Prednisone the steroid starting tomorrow for 7 days. Follow-up your primary care physician to ensure you are improving return if worse. Disposition Disposition: Home, Self Care What to do if you have Problems For any increased pain, shortness of breath, bleeding, nausea or vomiting, chestpain, or any unexpected problems, contact your Primary Care Provider. Call [facility] ([phone]) or report to the closest Emergency Room. Call 911 if necessary. 01/06/24 1625 <Electronically signed by Amadou Wadsworth MD> Cosigner Signature (if applicable): CC: Dr. Otilia Lopez MD ~ Signed [facility] Work Phone: [phone] 401-334905-11-2024 NoteHNO ID: [id number] Author: SERENA BAUER APRN.LAST GREASER Service: ? Author Type: Nurse Practitioner Type: Progress Notes Filed: 01/06/2024 14:04 Note Text: Patient came in with complaints of low oxygen saturation at home anywhere from the mid 70s to the low 90s. Patient has had a history of a pneumothorax. Patient does have a yellow tent to his skin that is a little more yellow than normal per caregiver. Patient's heart rate is bouncing in between 80s and 120s. Patient is being referred to the emergency room for full evaluation due to lack of testing. Patient's caregiver will take him now.[facility] 01-06-2024 History of Present illness Narrative* Serena Bauer APRN.LAST GREASER - 01/06/2024 2:03 PM EDT Patient came in with complaints of low oxygen saturation at home anywhere from the mid 70s to the low 90s. Patient has had a history of a pneumothorax. Patient does have a yellow tent to his skin that is a little more yellow than normal per caregiver. Patient's heart rate is bouncing in between 80sand 120s. Patient is being referred to the emergency room for full evaluation due to lack of testing. Patient's caregiver will take him now. [facility] Telephone encounter Note * Telephone Encounter - Thao Richardson - 01/05/2024 8:22 AM EDT Oxygen therapy order signed and faxed back to [facility]. Thao Richardson [facility]05-10-[facility]24 Miscellaneous Notes* Telephone Encounter - Thao Richardson - 01/05/2024 8:22 AM EDT Oxygen therapy order signed and faxed back to [facility]. Thao Richardson documented in this encounterL[facility]04-25-[facility]24 Instructions* Patient Instructions* Tatiana Earl MA - 12/21/2023 2:05 PM EDT RSV Vaccine - Check with your Insurance to see if this is an approved vaccine and if eligible (or better covered)at the Pharmacy or Doctor's office. If able to receive through Doctor's office, notify office and we can set you up for a Nurse Visit. documented in this encounterL[facility]04-[facility]24 History of Present illness Narrative* Otilia Lopez MD - 12/21/2023 2:00 PM EDT Chief Complaint Patient presents with: F/U 6 Month HPI Dimitri Painter is a 78 year old male who presents here today for 6 month follow up. Denies any bowel, Gi, or urinary issues. Gets up once a night to urinate. Hx of Prostate cancer. Lipid: Taking Lovastatin 40 mg daily and ASA 81 mg daily. Tries to watch diet, but eats everything he can. Weight stable. 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 Does do some walking. Emphysema: Follows with Pulm Dr. Amaral. Uses Oxygen 2 L prn and at night. Had walk test and overnight oximetry. Uses Proair inhaler prn and Trelegy Ellipta inhaler daily. - Behavioral Health Screening completed. Denies problems with anxiety or depression. Does not have Adv Dir/Living Will, but has paperwork. Will check with insurance in regards to RSV vaccine. Past medical history, appointments, medications, allergies reviewed. Previous Medical History PAST MEDICAL HISTORY Diagnosis Date Basal cell cancer right ear Cataract right eye Diverticulosis of colon (without mention of hemorrhage) Glaucoma High cholesterol Hypertension Personal history of colonic polyps Squamous cell carcinoma right forearm Previous Surgical History PAST SURGICAL HISTORY Procedure Laterality Date COLONOSCOPY FLX DX W/COLLJ SPEC WHEN PFRMD age 59 Colonoscopy COLONOSCOPY FLX DX W/COLLJ SPEC WHEN PFRMD 01/05/12 repeat 5 years PROSTATECTOMY;RADICAL RETROPUBIC REPAIR RETINAL DETACHMENT SCLERAL BUCKLING Scleral Buckle Family History FAMILY HISTORY Problem Relation Age of Onset Heart Mother age 65 Diabetes Father age 89 Cancer Sister breast Patient Allergies ALLERGIES Allergen Reactions Anesthesia S/I-40 (* Other: See Comments With use of anesthesia knocks him out, doesn't need much per . Current Medications Current Outpatient Medications on File Prior to Visit Medication Sig lovastatin 40 mg tablet Take 1 tablet by mouth daily at bedtime. TRELEGY ELLIPTA 200-62.5-25 mcg inhalation powder USE 1 INHALATION BY MOUTH ONCE DAILY AT THE SAME TIME EACH DAY DIRECTED fluticasone (FLONASE) 50 mcg/actuation nasal spray Use 1-2 Sprays in each nostril once daily. albuterol HFA (PROAIR HFA) 90 mcg/actuation inhaler Inhale 2 Puffs by mouth every 4 hours as neededfor wheezing/shortness of breath. Take as directed OXYGEN, HOME THERAPY, 2 L/min by Nasal Cannula route continuous. vit A,C,T-Vsxc-Darpcq (PRESERVISION AREDS) 2,148 mcg-113 mg-45 mg-17.4mg tab Take 1 tablet by mouthtwice daily. aspirin, enteric coated (ASPIRIN, ENTERIC COATED) 81 mg EC tablet Take 81 mg by mouth once daily. Indications: prevention of transient ischemic attack acetaminophen (TYLENOL) 500 mg tablet Take 2 tablets by mouth every 6 hours as needed for pain. Indications: pain Propylene Glycol-Glycerin 1-0.3 % drop Use in both eyes. TIMOLOL MALEATE OPHTHALMIC Use in eyes. Left eye No current facility-administered medications on file prior to visit. Social History Social History Tobacco Use Smoking status: Former Packs/day: 0.50 Years: 40.00 Additional pack years: 0.00 Total pack years: 20.00 Types: Cigarettes Quit date: 08/25/2022 Years since quittin.3 Smokeless tobacco: Never Tobacco comments: Pt stopped smoking the day he was admitted into the hospital. Vaping Use Vaping Use: Never used Substance Use Topics Alcohol use: No Comment: rare Drug use: No EXAM: BP 124/72 (BP Site: Right Arm, BP Position: Sitting, BP Cuff Size: Regular Adult) Pulse 72 Resp18 Wt 60.5 kg (133 lb 6.4 oz) BMI 22.90 kg/m General Appearance: Well appearing, alert, in no acute distress, well-hydrated, well nourished.. Lungs: Lungs clear to auscultation. No wheezing, rhonchi, rales.. Heart: RRR without murmur, gallop, or rubs. No ectopy. Health Maintenance List Shingrix Vaccine(1 of 2) Never done RSV Vaccine(1 - 1-dose 60+ series) Never done DTaP,Tdap,Td Vaccine(1 - Tdap) due on 11/20/2018 Advance Directive Discussion due on 08/28/2023 Behavioral Health Screening Never done Covid-19 Vaccine( season) due on 06/20/2024 Annual PCP Team Chronic Disease Visit due on 06/20/2024 Diabetes Screening due on 12/17/2026 Spirometry Completed Influenza Vaccine Completed Pneumococcal Vaccine: 65+ Completed HPV Vaccine Aged Out Fecal Occult Blood Discontinued Colonoscopy Discontinued Data reviewed Appointment on 12/18/2023 Component Date Value Protein, Total 12/18/2023 7.4 Albumin 12/18/2023 4.1 Calcium, Total 12/18/2023 9.8 Bilirubin, Total 12/18/2023 0.4 Alkaline Phosphatase 12/18/2023 66 AST 12/18/2023 28 ALT 12/18/2023 17 Glucose 12/18/2023 91 BUN 12/18/2023 15 Creatinine 12/18/2023 0.73 Sodium 12/18/2023 138 Potassium 12/18/2023 4.5 Chloride 12/18/2023 103 CO2 12/18/2023 27 Anion Gap 12/18/2023 8 (L) Estimated Glomerular Rohith* 12/18/2023 93 Cholesterol, Total 12/18/2023 167 Triglyceride 12/18/2023 72 HDL Cholesterol 12/18/2023 57 Non HDL Cholesterol 12/18/2023 110 Fasting Time 12/18/2023 12 VLDL Cholesterol 12/18/2023 14 TC:HDL Ratio 12/18/2023 2.93 LDL Cholesterol 12/18/2023 96 LDL:HDL Ratio 12/18/2023 1.68 ASSESSMENT/PLAN: 1. Mixed hyperlipidemia - ICD9: 272.2, ICD10: E78.2 (primary diagnosis) - Controlled - Continue current medications - Counseled on healthy diet and regular exercise - COMPREHENSIVE METABOLIC PANEL - LIPID PANEL BASIC 2. Essential hypertension - ICD9: 401.9, ICD10: I10 - Controlled 3. Pulmonary emphysema, unspecified emphysema type (HCC) - ICD9: 492.8, ICD10: J43.9 Controlled Follow with Pulm 4. Prostate cancer (HCC) - ICD9: 185, ICD10: C61 Check PSA in 6 months - PROSTATE-SPECIFIC ANTIGEN DIAGNOSTIC Follow up in 6 months Medical Decision Making: Problems: Moderate: 2+ stable chronic illnesses Data: Unique test result(s) reviewed: 2 Unique test(s) ordered: 3+ Risk: Moderate: Drug management Medical Decision Making Level: 4 - Moderate Otilia Lopez MD documented in this encounterL[facility]03-14-[facility] History of Present illness Narrative* Isabella Thorpe MA - 11/09/2023 11:35 AM EDT POPULATION HEALTH NAVIGATION OUTREACH Action/FYI msg to schedule wellness Reason for Outreach Care Gap/HCC or Scheduling Wellness Visits Care Gaps due: Medicare Annual Wellness Visit Patient Contacted: Unable or unnecessary to reach patient: Unable to leave message [employer] message sent Navigation Signature: Isabella Thorpe MA November 09, 2023 11:36 AM documented in this encounterL[facility]03-11-2024 Miscellaneous Notes* Telephone Encounter - Laurita Pringle - 11/06/2023 3:49 PM EDT Oxygen order faxed to [facility]. Laurita Pringle * Telephone Encounter - Laurita Pringle - 11/06/2023 1:48 PM EDT Nocturnal oximetry results under scanned documents for your review. Laurita Pringle documented in this encounterL[facility]03-07-2024 Procedure note* Brigitte Reddy RPFT - 11/02/2023 2:02 PM ESTAssociated Order(s): OXIMETRY WITH AMBULATION RESPIRATORY THERAPY OXIMETRY WITH AMBULATION Oximetry with Ambulation Test for This Encounter O2 Device O2 Adapter NC O2 Flow SpO2% HR Activity Ft Walked (ft) Time (min) Avg Speed (MPH) R/A 96 97 Resting R/A 95 116 Walking, usual pace 370 3 1.4 R/A 96 114 Walking, fastest pace 540 3 2.05 General Information Pulse Oximetry Site Total Time Spent Walking Assistance/O2 Supply Carrier L Index Finger 30 None NAME: CARLO Canseco PATIENT NAME: Dimitri Painter DATE: November 02, 2023 TIME: 2:02 PM Comment: documented in this [facility]03-07-2024 History of Present illness Narrative* Brigitte Reddy RPFT - 11/02/2023 1:49 PM EST PULM FUNCTION SMARTBLOCK: Provider: Patito Amaral MD Assisting Tech: Brigitte Reddy RPFT Oximetry - Ambulation: 1 documented in this encounterL[facility]10-24-2023 History of Present illness Narrative* Otilia Lopze MD - 06/20/2023 2:00 PM EDT Chief Complaint Patient presents with: F/U 6 Month HPI Dimitri Painter is a 77 year old male who presents here today for 6 month follow up. Pt here today for a 6 month follow up. Has been doing some home repair projects. GI/Uro - Denies any stomach, bowel or urinary issues. Declines Colorectal screening. Cardio - Denies any chest pains, dizziness, or unusual SOB. Lipid: Tries to watch his diet, overall feels he eats pretty well. Does follow with [facility] and follow those at home. Eats a lot of high protein and drinks Ensure. Denies any formal exercise butdoes try to get out and do house hold chores, outside work and feed cats. Currently taking Lovastatin 40 mg daily and ASA 81 mg daily. Pulm - Following with Pulm Dr. Amaral for pulmonary emphysema. Uses Proair prn, Trelegy Ellipta once daily, and Oxygen 2 L as needed, wears Concentrator at night. Can go without oxygen, but brings portable O2 with him where ever he goes. Overall breathing stable. Quit smoking 07/2022. HM - Agreeable to Flu vaccine. Declines Covid vaccines. Prefers to stop colon cancer screening.. Has thought about getting RSV vaccine, but unsure at this time. Past medical history, appointments, medications, allergies reviewed. Previous Medical History PAST MEDICAL HISTORY Diagnosis Date Basal cell cancer right ear Cataract right eye Diverticulosis of colon (without mention of hemorrhage) Glaucoma High cholesterol Hypertension Personal history of colonic polyps Squamous cell carcinoma right forearm Previous Surgical History PAST SURGICAL HISTORY Procedure Laterality Date COLONOSCOPY FLX DX W/COLLJ SPEC WHEN PFRMD age 59 Colonoscopy COLONOSCOPY FLX DX W/COLLJ SPEC WHEN PFRMD 01/05/12 repeat 5 years PROSTATECTOMY;RADICAL RETROPUBIC REPAIR RETINAL DETACHMENT SCLERAL BUCKLING Scleral Buckle Family History FAMILY HISTORY Problem Relation Age of Onset Heart Mother age 65 Diabetes Father age 89 Cancer Sister breast Patient Allergies ALLERGIES Allergen Reactions Anesthesia S/I-40 (* Other: See Comments With use of anesthesia knocks him out, doesn't need much per . Current Medications Current Outpatient Medications on File Prior to Visit Medication Sig acetaminophen (TYLENOL) 500 mg tablet Take 2 tablets by mouth every 6 hours as needed for pain. Indications: pain albuterol HFA (PROAIR HFA) 90 mcg/actuation inhaler Inhale 2 Puffs by mouth every 4 hours as neededfor wheezing/shortness of breath. Take as directed aspirin, enteric coated (ASPIRIN, ENTERIC COATED) 81 mg EC tablet Take 81 mg by mouth once daily. Indications: prevention of transient ischemic attack fluticasone (FLONASE) 50 mcg/actuation nasal spray Use 1-2 Sprays in each nostril once daily. iqtoqcfxgdp-gscukadqa-oygdskdk (TRELEGY ELLIPTA) 200-62.5-25 mcg inhalation powder Inhale 1 Puff asinstructed once daily. lovastatin 40 mg tablet Take 1 tablet by mouth daily at bedtime. OXYGEN, HOME THERAPY, 2 L/min by Nasal Cannula route continuous. Propylene Glycol-Glycerin 1-0.3 % drop Use in both eyes. TIMOLOL MALEATE OPHTHALMIC Use in eyes. Left eye vit A,C,I-Wksq-Fvkbkf (PRESERVISION AREDS) 2,148 mcg-113 mg-45 mg-17.4mg tab Take 1 tablet by mouthtwice daily. No current facility-administered medications on file prior to visit. Social History Social History Tobacco Use Smoking status: Former Packs/day: 0.50 Years: 40.00 Additional pack years: 0.00 Total pack years: 20.00 Types: Cigarettes Quit date: 08/25/2022 Years since quittin.8 Smokeless tobacco: Never Tobacco comments: Pt stopped smoking the day he was admitted into the hospital. Vaping Use Vaping Use: Never used Substance Use Topics Alcohol use: No Comment: rare Drug use: No EXAM: BP 92/70 (BP Site: Left Arm, BP Position: Sitting, BP Cuff Size: Regular Adult) Pulse 84 Resp 18 Wt 59.8 kg (131 lb 12.8 oz) BMI 22.62 kg/m General Appearance: Well appearing, alert, in no acute distress, well-hydrated, well nourished.. Lungs: Lungs clear to auscultation. No wheezing, rhonchi, rales.. Heart: RRR without murmur, gallop, or rubs. No ectopy. Health Maintenance List Shingrix Vaccine(1 of 2) Never done DTaP,Tdap,Td Vaccine(1 - Tdap) due on 11/20/2018 Fecal Occult Blood due on 11/19/2019 Influenza Vaccine(1) due on 04/28/2023 Covid-19 Vaccine(4 - season) due on 04/28/2023 Hepatitis C Screening due on 12/20/2023 Annual PCP Team Chronic Disease Visit due on 12/20/2023 Diabetes Screening due on 12/09/2025 Spirometry Completed Advance Directive Discussion Completed Depression Assessment Completed Pneumococcal Vaccine: 65+ Completed HPV Vaccine Aged Out Colonoscopy Discontinued Data reviewed Appointment on 06/15/2023 Component Date Value Protein, Total 06/15/2023 7.3 Albumin 06/15/2023 4.4 Calcium, Total 06/15/2023 9.6 Bilirubin, Total 06/15/2023 0.7 Alkaline Phosphatase 06/15/2023 77 AST 06/15/2023 28 ALT 06/15/2023 14 Glucose 06/15/2023 78 BUN 06/15/2023 14 Creatinine 06/15/2023 0.66 (L) Sodium 06/15/2023 139 Potassium 06/15/2023 4.5 Chloride 06/15/2023 100 CO2 06/15/2023 29 Anion Gap 06/15/2023 10 Estimated Glomerular Rohith* 06/15/2023 96 Cholesterol, Total 06/15/2023 153 Triglyceride 06/15/2023 51 HDL Cholesterol 06/15/2023 52 Non HDL Cholesterol 06/15/2023 101 Fasting Time 06/15/2023 12 VLDL Cholesterol 06/15/2023 10 TC:HDL Ratio 06/15/2023 2.94 LDL Cholesterol 06/15/2023 91 LDL:HDL Ratio 06/15/2023 1.75 PSA 06/15/2023 0.10 ASSESSMENT/PLAN: 1. Mixed hyperlipidemia - ICD9: 272.2, ICD10: E78.2 (primary diagnosis) - Controlled - Continue current medications - Counseled on healthy diet and regular exercise 2. Essential hypertension - ICD9: 401.9, ICD10: I10 - Controlled - BP low, currently on no medication 3. Pulmonary emphysema, unspecified emphysema type (HCC) - ICD9: 492.8, ICD10: J43.9 - Cont current medications - Cont f/u with Pulmonary - Discussed RSV and would be beneficial due to hx of lung issues. - If decides to get it, can receive at pharmacy. 4. Prostate cancer (HCC) - ICD9: 185, ICD10: C61 - PSA stable, continue to monitor - No symptoms presently 5. Severe protein-calorie malnutrition (HCC) - ICD9: 262, ICD10: E43 - Weight stable - Cont f/u with Nutrition - Cont watching diet 6. Need for influenza vaccination - ICD9: V04.81, ICD10: Z23 - INFLUENZA VACCINE, PRSV FREE, AGE 65+ YR, HIGH DOSE, QUADRIVALENT (FLUZONE HIGH-DOSE) - Receive in office today 6 mo f/u with labs. I agree with the Chief Complaint, ROS, and Past Histories independently gathered by the clinical clinical support specialist and the remaining scribed note accurately describes my personal service to the patient. Medical Decision Making: Problems: Moderate: 2+ stable chronic illnesses Data: Unique test result(s) reviewed: 3+ Unique test(s) ordered: 2 Risk: Moderate: Drug management Medical Decision Making Level: 4 - Moderate Otilia Lopez MD The documentation for this note was completed by Tatiana Earl Ma acting as scribe for Otilia Lopez MD. June 20, 2023 1:55 PM. Tatiana Earl Ma documented in this encounterL[facility] History of Present illness Narrative* Monica Vasquez RT(R) - 03/01/2023 2:20 PM EDT Radiology Service Progress Note PATIENT NAME: Dimitri Painter DATE OF SERVICE: March 01, 2023 TIME: 2:48 PM PATIENT IDENTITY VERIFICATION COMPLETED USING TWO (2) IDENTIFIERS: Name and Date of confirmedby patient verbally. FALL SCREENING: Has the patient had 2 falls in the last year or 1 fall with injury or currently using an Ambulatory Assistive Device (Walker, Cane, Wheelchair, Crutches, etc.)? No PATIENT GENDER DATA: Male PATIENT RELEVANT IMPLANT DATA REVIEWED: Not Applicable RADIOLOGY DEPARTMENT: General X-ray: Exam(s) Completed: Chest X-Ray PERIPHERAL IV DATA: Not applicable SIGNED BY: RT Anju(R) March 01, 2023 2:48 PM documented in this encounterL[facility]04-24-2023 History of Present illness Narrative* Otilia Lopez MD - 12/19/2022 1:20 PM EDT Chief Complaint Patient presents with: F/U 3 Month HPI Dimitri Painter is a 77 year old male who presents here today for 3 month follow up. Tobacco - No longer smoking. Denies any cravings and overall doing well. GI/Uro - No bowel, Gi, or urinary issues. Uses Colace once daily. Hx of prostate cancer. Gets up atnight occasionally to urinate but does drink quite a bit. Lipid: Has gained weight since his last office visit. Reports appetite is improved, eating 2-3 times per day. Does try to watch his diet, but was told to eat a high protein diet and fiber rich foods.Does try to do the exercises that were given to him from PT. Does also walk as much as possible. Taking Lovastatin 40 mg daily. COPD: Follows with Dr. Munir White and currently in Pulmonary Rehab. 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 He is completing this here in [place]. Does breathing exercises. Uses Trelegy Ellipta daily, Proair prn (uses rarely) and 2 L Oxygen continuously. Overall feels that his breathing is doing fine. Does take Mucinex once daily as well. Checks pulse ox at home, overall staying above 90 occasionally will go down to upper 80s. HM - Denies having Adv Dir/Living Will. Declines feeling down, depressed or hopeless; reviewed depression screen with patient. Declines Hep C screening. Declines wanting any further Covid vaccines. Past medical history, appointments, medications, allergies reviewed. Previous Medical History PAST MEDICAL HISTORY Diagnosis Date Basal cell cancer right ear Cataract right eye Diverticulosis of colon (without mention of hemorrhage) Glaucoma High cholesterol Hypertension Personal history of colonic polyps Squamous cell carcinoma right forearm Previous Surgical History PAST SURGICAL HISTORY Procedure Laterality Date COLONOSCOPY FLX DX W/COLLJ SPEC WHEN PFRMD age 59 Colonoscopy COLONOSCOPY FLX DX W/COLLJ SPEC WHEN PFRMD 01/05/12 repeat 5 years PROSTATECTOMY;RADICAL RETROPUBIC REPAIR RETINAL DETACHMENT SCLERAL BUCKLING Scleral Buckle Family History FAMILY HISTORY Problem Relation Age of Onset Heart Mother age 65 Diabetes Father age 89 Cancer Sister breast Patient Allergies ALLERGIES Allergen Reactions Anesthesia S/I-40 (* Other: See Comments With use of anesthesia knocks him out, doesn't need much per . Current Medications Current Outpatient Medications on File Prior to Visit Medication Sig pkdukaaukpl-lhwhhnvmr-rbkmesxa (TRELEGY ELLIPTA) 200-62.5-25 mcg inhalation powder Inhale 1 Puff asinstructed once daily. fluticasone (FLONASE) 50 mcg/actuation nasal spray Use 1-2 Sprays in each nostril once daily. albuterol HFA (PROAIR HFA) 90 mcg/actuation inhaler Inhale 2 Puffs by mouth every 4 hours as neededfor wheezing/shortness of breath. Take as directed OXYGEN, HOME THERAPY, 2 L/min by Nasal Cannula route continuous. vit A,C,C-Otay-Sedmbt (PRESERVISION AREDS) 2,148 mcg-113 mg-45 mg-17.4mg tab Take 1 tablet by mouthtwice daily. lovastatin 40 mg tablet Take 1 tablet by mouth daily at bedtime. aluminum-magnesium hydroxide-simethicone (MAALOX,MYLANTA,MAG-AL PLUS) 200-200-20 mg/5 mL suspensionTake 30 mL by mouth every 6 hours as needed. docusate sodium (COLACE) 100 mg capsule Take 1 capsule by mouth twice daily as needed for constipation. guaiFENesin (MUCINEX) 600 mg 12 hr tablet Take 1 tablet by mouth every 12 hours as needed (congestion). polyethylene glycol 3350 (MIRALAX, GLYCOLAX) 17 gram packet Take 1 Packet by mouth once daily as needed for constipation. Dissolve dose in 4 - 8 ounces of liquid and take as directed. aspirin, enteric coated (ASPIRIN, ENTERIC COATED) 81 mg EC tablet Take 81 mg by mouth once daily. Indications: prevention of transient ischemic attack acetaminophen (TYLENOL) 500 mg tablet Take 2 tablets by mouth every 6 hours as needed for pain. Indications: pain Propylene Glycol-Glycerin 1-0.3 % drop Use in both eyes. TIMOLOL MALEATE OPHTHALMIC Use in eyes. Left eye No current facility-administered medications on file prior to visit. Social History Social History Tobacco Use Smoking status: Former Packs/day: 0.50 Years: 40.00 Pack years: 20.00 Types: Cigarettes Quit date: 08/25/2022 Years since quittin.3 Smokeless tobacco: Never Tobacco comments: Pt stopped smoking the day he was admitted into the hospital. Vaping Use Vaping Use: Never used Substance Use Topics Alcohol use: No Comment: rare Drug use: No EXAM: BP 100/74 (BP Site: Left Arm, BP Position: Sitting, BP Cuff Size: Regular Adult) Pulse 84 Resp 20 Wt 60.9 kg (134 lb 3.2 oz) BMI 20.41 kg/m General Appearance: Well appearing, alert, in no acute distress, well-hydrated, well nourished. Wearing oxygen. Lungs: Lungs clear to auscultation. No wheezing, rhonchi, rales.. Heart: RRR without murmur, gallop, or rubs. No ectopy. Health Maintenance List HEPATITIS C SCREENING Never done SHINGRIX VACCINE(1 of 2) Never done DTAP,TDAP,TD(1 - Tdap) due on 11/20/2018 FECAL OCCULT BLOOD due on 11/19/2019 COVID-19 VACCINE(4 - Booster for Pfizer series) due on 10/07/2021 ADVANCE DIRECTIVE DISCUSSION Never done DEPRESSION ASSESSMENT Never done INFLUENZA(Season Ended) due on 04/28/2023 ANNUAL PCP TEAM CHRONIC DISEASE VISIT due on 09/13/2023 DIABETES SCREEN due on 12/09/2025 SPIROMETRY Completed PNEUMOCOCCAL: 65+ Completed Data reviewed Appointment on 12/09/2022 Component Date Value Protein, Total 12/09/2022 7.5 Albumin 12/09/2022 4.3 Calcium, Total 12/09/2022 10.0 Bilirubin, Total 12/09/2022 0.4 Alkaline Phosphatase 12/09/2022 64 AST 12/09/2022 29 ALT 12/09/2022 18 Glucose 12/09/2022 88 BUN 12/09/2022 18 Creatinine 12/09/2022 0.69 (A) Sodium 12/09/2022 137 Potassium 12/09/2022 4.6 Chloride 12/09/2022 101 CO2 12/09/2022 29 Anion Gap 12/09/2022 7 (A) Estimated Glomerular Rohith* 12/09/2022 95 Cholesterol, Total 12/09/2022 170 Triglyceride 12/09/2022 77 HDL Cholesterol 12/09/2022 54 Non HDL Cholesterol 12/09/2022 116 Fasting Time 12/09/2022 13 VLDL Cholesterol 12/09/2022 15 TC:HDL Ratio 12/09/2022 3.15 LDL Cholesterol 12/09/2022 101 (A) LDL:HDL Ratio 12/09/2022 1.87 WBC 12/09/2022 6.76 RBC 12/09/2022 4.60 Hemoglobin 12/09/2022 15.1 Hematocrit 12/09/2022 47.3 MCV 12/09/2022 102.8 (A) MCH 12/09/2022 32.8 MCHC 12/09/2022 31.9 RDW-CV 12/09/2022 13.4 Platelet Count 12/09/2022 171 MPV 12/09/2022 10.6 Absolute nRBC 12/09/2022 <0.01 ASSESSMENT/PLAN: 1. Mixed hyperlipidemia - ICD9: 272.2, ICD10: E78.2 (primary diagnosis) - good control - Continue current medication. - Encouraged following a low fat, low cholesterol diet. - Discussed the benefits of regular aerobic exercise and weight loss. 2. Pulmonary emphysema, unspecified emphysema type (HCC) - ICD9: 492.8, ICD10: J43.9 - Stable, cont f/u with Pulm and Rehab 3. Pneumothorax on left - ICD9: 512.89, ICD10: J93.9 - Resolved; continue current Pulm plan 4. Severe protein-calorie malnutrition (HCC) - ICD9: 262, ICD10: E43 - Weight improved. 5. Prostate cancer (HCC) - ICD9: 185, ICD10: C61 - Check PSA at next OV 6 mo f/u with labs. I agree with the Chief Complaint, ROS, and Past Histories independently gathered by the clinical clinical support specialist and the remaining scribed note accurately describes my personal service to the patient. Medical Decision Making: Problems: Moderate: 2+ stable chronic illnesses Data: Unique test result(s) reviewed: 3+ Unique test(s) ordered: 3+ Risk: Moderate: Drug management Medical Decision Making Level: 4 - Moderate Otilia Lopez MD The documentation for this note was completed by Tatiana Earl Ma acting as scribe for Otilia Lopez MD. December 19, 2022 1:25 PM. Tatiana Earl Ma documented in this encounterL[facility]04-04-2023 Miscellaneous Notes* Telephone Encounter - Jazmin Ramos - 11/29/2022 4:01 PM EDT All information has been faxed to [facility] for pulm rehab. Jazmin Ramos documented in this encounterL[facility]03-27-2023 Instructions* Patient Instructions* Patito Amaral MD - 11/21/2022 11:59 AM EDT Start the pulmonary rehabilitation as scheduled COPD Plan: Use Trelegy once a day, everyday, even if you do not have symptoms. It is a long acting inhaler anddoes not quickly treat symptoms. It is meant to decrease the frequency you experience symptoms. Trelegy - 1 inhalation daily ---Instructional Video: https://www.Ankegy.Velasca/using-trelegy/index.html Use Albuterol (inhaler and/or nebulizer) as needed for symptoms only. This is a short acting inhaler and is mainly helpful at treating symptoms as they occur. Using it 15 minutes before exercise doeshelp prevent some exercise induced symptoms in some people. Albuterol (Proair, Proventil, or Ventolin) MDI - 1-2 puffs every 6 hours as needed for wheezing or shortness of breath. You can also use 1-2 puffs ten minutes before exercise or exertion. Use with your spacer. ---Instructional video: https://www.lung.org/khmi-bojkkh-ltq-diseases/nesy-fdyhrzc-vfqhvy/asthma/pat dmbb-jsgvidmsj-nak-videos/videos/deq-oa-ytl-i-jwmfcgb-qlvf-inhaler.html It is very important that you try to exercise and stay active everyday. If your muscles get weaker,you will feel more breathless with activity. Allergic Rhinitis Simply Saline nasal rinses daily or 3 times per week Follow nasal rinses with Flonase Sensimist 2 sprays in each nostril daily Claritin 10 mg daily. documented in this encounterL[facility]03-27-2023 History of Present illness Narrative* Nelson Marquis - 11/21/2022 11:20 AM EDT Pt. Here for f/u for Ct and Pulmonary labs. * Patito Amaral MD - 11/21/2022 11:16 AM EDT Images from the original note were not included. [facility] Established patientStage CHIEF COMPLIANT follow-up HISTORY OF PRESENT ILLNESS Interval history 11/21/2022 Today patient reports significant improvement in his symptoms since he started Trelegy. He is able to do more activities with minimal shortness of breath. He denies significant cough or sputum production. He is currently on Trelegy and albuterol as needed. He did not require to use rescue inhaler frequently. He reports 11 pound weight gain. He continues on continuous supplemental oxygen, 2 L/min. He has not started pulmonary rehabilitation but has been on the waiting list to start soon. Initial history 09/28/2022 Dimitri Painter is a 77 year old male with past medical history significant for tobacco use disorder,hyperlipidemia and glaucoma who presents today for posthospitalization follow-up for emphysema and left pneumothorax. He initially presented to [facility] on 08/25/22 with chest pain and shortness of breath and was found to have left-sided pneumothorax. CT chest showed multiple blebs. He had a chest tube placed and has a persistent air leak. He was transferred to [facility] on 08/27/22 for assessment of his chest tube and possibly blebectomy versus pleurodesis. Sputum culture grew gram- negative cocci treated with Abx. CT surgery consulted. CT chest initially placed 08/25 for large lateral bleb with compressive atelectasis, Chest tube upsized by IR on 08/31, changed to ws 09/03, clamped 09/04 and removed on 09/05/2022 chest tube today, follow up post pull cxr did not show residual pneumothorax. Per CTS patient did not need pleurodesis at this point. Patient was discharged on 09/06/2022 with supplemental oxygen and albuterol inhaler Patient is on 2 L continuous supplemental oxygen, he reports normal O2 saturation at rest but his saturation dips down to nearly 80s or late 70s with activity. Also he still reports shortness of breath, episodes of cough and sputum production. He has history of tobacco use, more than [id number]-cetk. He did quit after this hospitalization. He has significant weight loss, per patient he lost 30+ pounds over the last year. He denies chest pain, fever, hemoptysis. REVIEW OF SYSTEMS Constitutional: Negative for appetite change, chills, diaphoresis and fever. HENT: Negative for dental problem, ear discharge, ear pain, facial swelling, nosebleeds. Eyes: Negative for pain, discharge, itching and visual disturbance. Respiratory: See HPI Cardiovascular: Negative for chest pain, palpitations and leg swelling. Gastrointestinal: Negative for abdominal distention, abdominal pain, anal bleeding, blood in stool,nausea and vomiting. Skin: Negative for color change, rash and wound. Neurological: Negative for dizziness, seizures, speech difficulty and headaches. Psychiatric/Behavioral: Negative for confusion and hallucinations. PAST MEDICAL/SURGICAL/SOCIAL HISTORY PAST MEDICAL HISTORY Diagnosis Date Basal cell cancer right ear Cataract right eye Diverticulosis of colon (without mention of hemorrhage) Glaucoma High cholesterol Hypertension Personal history of colonic polyps Squamous cell carcinoma right forearm PAST SURGICAL HISTORY Procedure Laterality Date COLONOSCOPY FLX DX W/COLLJ SPEC WHEN PFRMD age 59 Colonoscopy COLONOSCOPY FLX DX W/COLLJ SPEC WHEN PFRMD 01/05/12 repeat 5 years PROSTATECTOMY;RADICAL RETROPUBIC REPAIR RETINAL DETACHMENT SCLERAL BUCKLING Scleral Buckle FAMILY HISTORY Problem Relation Age of Onset Heart Mother age 65 Diabetes Father age 89 Cancer Sister breast Social History Tobacco Use Smoking status: Former Packs/day: 0.50 Years: 40.00 Pack years: 20.00 Types: Cigarettes Quit date: 08/25/2022 Years since quittin.2 Smokeless tobacco: Never Tobacco comments: Pt stopped smoking the day he was admitted into the hospital. Vaping Use Vaping Use: Never used Substance Use Topics Alcohol use: No Comment: rare Drug use: No MEDICATIONS AND ALLERGIES OXYGEN, HOME THERAPY, 2 L/min by Nasal Cannula route continuous. vit A,C,M-Hgfw-Tsedyc (PRESERVISION AREDS) 2,148 mcg-113 mg-45 mg-17.4mg tab Take 1 tablet by mouthtwice daily. lovastatin 40 mg tablet Take 1 tablet by mouth daily at bedtime. aluminum-magnesium hydroxide-simethicone (MAALOX,MYLANTA,MAG-AL PLUS) 200-200-20 mg/5 mL suspensionTake 30 mL by mouth every 6 hours as needed. docusate sodium (COLACE) 100 mg capsule Take 1 capsule by mouth twice daily as needed for constipation. guaiFENesin (MUCINEX) 600 mg 12 hr tablet Take 1 tablet by mouth every 12 hours as needed (congestion). aspirin, enteric coated (ASPIRIN, ENTERIC COATED) 81 mg EC tablet Take 81 mg by mouth once daily. Indications: prevention of transient ischemic attack acetaminophen (TYLENOL) 500 mg tablet Take 2 tablets by mouth every 6 hours as needed for pain. Indications: pain Propylene Glycol-Glycerin 1-0.3 % drop Use in both eyes. TIMOLOL MALEATE OPHTHALMIC Use in eyes. Left eye bxmhixrdrkg-nsqmaasvx-ctbckhzi (TRELEGY ELLIPTA) 200-62.5-25 mcg inhalation powder Inhale 1 Puff asinstructed once daily. fluticasone (FLONASE) 50 mcg/actuation nasal spray Use 1-2 Sprays in each nostril once daily. albuterol HFA (PROAIR HFA) 90 mcg/actuation inhaler Inhale 2 Puffs by mouth every 4 hours as neededfor wheezing/shortness of breath. Take as directed polyethylene glycol 3350 (MIRALAX, GLYCOLAX) 17 gram packet Take 1 Packet by mouth once daily as needed for constipation. Dissolve dose in 4 - 8 ounces of liquid and take as directed. ALLERGIES Allergen Reactions Anesthesia S/I-40 (* Other: See Comments With use of anesthesia knocks him out, doesn't need much per . PHYSICAL EXAM BP 129/79 Pulse 80 Temp (Src) 97.8 (Temporal) Resp 16 Ht 5' 8 (1.73m) Wt 130 lb (59.0kg) SpO2 94% BMI 19.77 kg/(m^2). GEN: Normal appearance. No acute distress. HEAD: Normocephalic, atraumatic. EYES: Anicteric sclera. EOMI. NECK: Supple CV: RRR, no murmur, gallop, or rubs. BP as documented RESP: No wheezing. No crackles. Left hemithorax diminished breath sounds ABD: Soft, non-tender, non-distended. Bowel sounds normal. EXTR: No clubbing, cyanosis, or edema. NEURO: Alert and oriented X 3. Speech intact. No focal deficit present. PSYCH: Mood normal. Behavior normal. Thought content normal. DIAGNOSTIC REVIEW I personally reviewed and interpreted the labs, PFTs and radiographs LABs WBC (k/uL) Date Value 09/04/2022 7.63 RBC (m/uL) Date Value 09/04/2022 4.36 Hemoglobin (g/dL) Date Value 09/04/2022 14.2 Hematocrit (%) Date Value 09/04/2022 45.8 MCV (fL) Date Value 09/04/2022 105.0 (H) MCH (pg) Date Value 09/04/2022 32.6 MCHC (g/dL) Date Value 09/04/2022 31.0 RDW-CV (%) Date Value 09/04/2022 13.0 Platelet Count (k/uL) Date Value 09/04/2022 165 MPV (fL) Date Value 09/04/2022 9.5 Glucose (mg/dL) Date Value 09/04/2022 89 BUN (mg/dL) Date Value 09/04/2022 28 (H) Creatinine (mg/dL) Date Value 09/04/2022 0.63 (L) Sodium (mmol/L) Date Value 09/04/2022 134 (L) Potassium (mmol/L) Date Value 09/04/2022 5.5 (H) Chloride (mmol/L) Date Value 09/04/2022 94 (L) CO2 (mmol/L) Date Value 09/04/2022 34 (H) Protein, Total (g/dL) Date Value 08/29/2022 6.4 Albumin (g/dL) Date Value 09/04/2022 2.9 (L) Calcium, Total (mg/dL) Date Value 09/04/2022 9.2 Alkaline Phosphatase (U/L) Date Value 08/29/2022 73 Bilirubin, Total (mg/dL) Date Value 08/29/2022 0.6 AST (U/L) Date Value 08/29/2022 26 ALT (U/L) Date Value 08/29/2022 22 Cholesterol, Total (mg/dL) Date Value 06/28/2022 158 Triglyceride (mg/dL) Date Value 06/28/2022 66 PFT: PFT 10/21/2022 IMPRESSION: Spirometry indicates very severe obstruction. There is no significant bronchodilator response. Clinical improvement following bronchodilator therapy may occur with limited spirometric improvement. The TLC is normal. The RV and RV/TLC are elevated indicating air trapping. The diffusing capacity is moderately reduced. The presence of a reduced lung diffusing capacity - that does not normalize when measured independent of alveolar volume (kCO) suggests a parenchymal or pulmonary vascular disorder. No comparison studies. Pre-Bronch Post-Bronch Pred Actual %Pred Actual %Chng SPIROMETRY FVC (L) 3.69 2.60 70 2.87 10 FEV1 (L) 2.76 0.99 35 0.99 FEV1/FVC (%) 75 38 50 34 -9 LUNG VOLUMES SVC (L) 4.14 2.12 51 IC (L) 3.08 1.16 37 ERV (L) 1.06 0.94 88 TGV (L) 3.56 6.47 181 RV (Pleth) (L) 2.51 5.51 220 TLC (Pleth) (L) 6.65 7.63 114 RV/TLC (Pleth) (%) 38 72 189 DIFFUSION DLCOunc (ml/min/mmHg) 21.22 10.57 49 DL/VA (ml/min/mmHg/L) 3.80 2.21 58 VA (L) 6.43 4.79 74 BHT (sec) 11.93 IVC (L) 1.91 TLC (SB) (L) 4.94 AIRWAYS RESISTANCE Raw (cmH2O/L/s) 1.45 5.85 404 Gaw (L/s/cmH2O) 1.03 0.17 16 sRaw (cmH2O*s) 4.76 38.33 805 sGaw (1/cmH2O*s) 0.20 0.03 12 Oxymetry with Ambulation 11/02/2022 RADIOLOGY: CXR: 09/05/2022 No pneumothorax following removal of the left chest tube. Small left pleural effusion with left basilar subsegmental atelectasis. Emphysema. Subcutaneous emphysema along the left chest wall and base of the neck on the left, not significantly changed. CT Chest: Last CT/CTA Chest/Lungs CT CHEST WO IVCON Exam End: 10/21/2022 3:11 PM (Final result) Narrative: * * *Final Report* * * DATE OF EXAM: Oct 21 2022 3:11PM [facility] [id number] - CT CHEST WO IVCON / PROCEDURE REASON: Other pneumothorax * * * * Physician Interpretation * * * * EXAMINATION: CHEST CT WITHOUT CONTRAST CLINICAL HISTORY: History of pneumothorax Technique: Spiral CT acquisition of the chest from the thoracic inlet to the upper abdomen without contrast. MQ: [id number] CT Radiation dose: Integrated Dose-length product (DLP) for this visit = 244 mGy*cm CT Dose Reduction Employed: mAs-kVp adjusted based on patient size-age Comparison: A prior outside CT from 08/25/2022 is available for comparison RESULT: Limitations: None. Lines, tubes, and devices: None. Lung parenchyma and airways: Evaluation of the lung parenchyma demonstrates moderate emphysema. There is a moderate size left-sided pneumothorax. Patchy consolidation is seen within the medial aspect of the right lower lobe. Minimal atelectasis is seen within the left lower lobe. Pleural space: A small to moderate size left-sided pleural effusion is present. Abdominal wall Lower neck, lymph nodes, and mediastinum: The imaged thyroid gland is normal. No lymphadenopathy in the supraclavicular, axillary, mediastinal, or hilar regions. Heart, pericardium, and thoracic vessels: The thoracic aorta and main pulmonary artery are normal in caliber. The cardiac chambers are normal in size. There is atherosclerotic calcification of the coronary arteries, not further evaluated on this exam. No pericardial effusion or thickening. Bones and soft tissues: No destructive bone lesion. Chest wall is unremarkable. Upper abdomen: No abnormality in the imaged upper abdomen. Photograph Finisher (topogram) images: No additional findings. Impression: IMPRESSION: 1. Moderate size left-sided hydropneumothorax. The size of the pneumothorax is unchanged since previous exam. The size of the pleural effusion has increased since previous exam. 2. Moderate emphysematous changes. 3. Patchy consolidation within the medial aspect of the right lower lobe suspicious for an infiltrate. Features Editor: [facility] Transcribe Date/Time: Oct 21 2022 4:49P Dictated by : NEY MENDIOLA MD This examination was interpreted and the report reviewed and electronically signed by: NEY MENDIOLA MD on Oct 21 2022 4:59PM EST OTHER TESTS: ECHO No results found for this or any previous visit (from the past 74795 hour(s)). VACCINATION: Immunization History Administered Date(s) Administered COVID-19 original vaccine, age 12+ yr, monovalent ([employer] - PURPLE TOP) 11/05/2020 11/26/2020 08/12/2021 influenza (HD-IIV) vaccine, age 65+ yr, high dose, PF (FLUZONE HIGH-DOSE) 05/26/2016 influenza (HD-IIV4) vaccine, age 65+ yr, high dose, quadrivalent, PF (FLUZONE HIGH-DOSE) 07/02/2021 influenza vaccine, unspecified formulation 06/22/2011 07/09/2012 pneumococcal (PCV13) vaccine, 13 valent (PREVNAR 13) 05/26/2016 pneumococcal (PPV23) vaccine, 23 valent (PNEUMOVAX 23) 08/28/2009 tetanus diphtheria (Td) vaccine, age 7+ yr, 5 Lf tetanus, PF (TENIVAC) 11/19/2018 ASSESSMENT AND PLAN 77 year old male with past medical history significant for tobacco use disorder, hyperlipidemia andglaucoma who presents today for follow-up for emphysema and left pneumothorax. 1. Chronic hypoxemic respiratory failure (HCC) - ICD9: 518.83, 799.02, ICD10: J96.11 (primary diagnosis) 2. Pulmonary emphysema, unspecified emphysema type (HCC) - ICD9: 492.8, ICD10: J43.9 3. Bullous emphysema (HCC) - ICD9: 492.0, ICD10: J43.9 4. Other pneumothorax - ICD9: 512.89, ICD10: J93.83 5. Chronic rhinitis - ICD9: 472.0, ICD10: J31.0 6. Former tobacco use - ICD9: V15.82, ICD10: Z87.891 #Chronic hypoxemic respiratory failure -Currently on continuous 2 L supplemental oxygen -Oxymetry with ambulation showed that he requires up to 4L with ambulation Plan: Continue supplemental O2 (2L at rest, 4 L with ambulation) #Emphysema -Emphysematous changes on chest imaging -PFTs with indicates very severe obstruction -Significant smoking history Plan: Continue Trelegy Continue albuterol as needed Start pulmonary rehabilitation #Left-sided pneumothorax -Spontaneous left-sided pneumothorax likely in the setting of subpleural blebs -S/p chest tube placement and removal with lung reexpansion -Repeat CT chest showing persistent Pneumothorax Plan: Continue to follow up Obtain repeat CXR with next visit #Former tobacco use -Significant smoking history, more than 40 pack-year -Quit recently after this hospitalization Plan: Continue smoking cessation #Rhinitis -Chronic -Currently on Claritin Plan: Simply Saline nasal rinses daily. Follow nasal rinses with Flonase Sensimist 2 sprays in each nostril daily Claritin 10 mg daily Patient's questions and concerns were addressed prior to discharge today. Patient verbalized understanding and is agreeable with the plan. Objective testing was reviewed with this visit. Followup discussed. Return in about 3 months (around 02/21/2023). Patito Amaral MD Staff physician Pulmonary and Critical Care Medicine [facility] Pager / phone [phone] Medical Decision Making: Level: 4 - Moderate documented in this encounterL[facility]03-07-2023 Miscellaneous Notes* [facility] Agency BRYN - Stephanie Walls RN - 11/01/2022 12:08 PM EST SITUATION: [facility] agency discharge visit completed today. spouse also present during today's visit. patient and caregiver reports the following: Allergies--reviewed Medications--reviewed current medications Falls--None BACKGROUND: Reason for Home Care: Pneumothorax ASSESSMENT: SN greeted at door by caregiver. Upon entrance patient found in chair Patient appears in no acute distress. Vitals (see flow sheet for details): stable SN findings today: Pt presents today in his chair he is ambulating unassisted. He has progressed well towards his nursing goals. he has been given his discharge instruction and is in agreement with today's discharge See intervention summary for education details and any skills performed. Specific SN discharge instructions: follow up with pulmonary rehab and continue with using his IS and deep breathing Patient encouraged to take all medication as ordered, eat a well-balanced diet and follow up with all physician appointments. NOMNC: signed and present on EMR Discharged due to no further SN skilled need. Patient discharged from Home Care to: self-care and family support RECOMMENDATION: Additional follow ups recommended: None Patient to follow up with Dr. Lopez for additional medical questions/concerns. documented in this encounterLanc[facility]03-06-2023 Miscellaneous Notes* CARE COORDINATION - Ward Chacon RN - 10/31/2022 6:30 PM EST SN contacted patient on 10/31/22 for the following: *notification that MD's office responed ok for patienbt to take Loratidine 10mg daily for s/s allergies. Patient verbalizes understanding. documented in this encounterLanc[facility]03-02-2023 Miscellaneous Notes* PT DISCHARGE - Griselda Lo PT - 10/27/2022 9:16 AM EST SITUATION: spouse present during today's visit. patient reports the following since the last homecare visit: medications/allergies--no changes, no fall. patient reports he is currently scheduled to start pulm rehab the 1st or 2nd week of November. unless they have a cancellation. Pt /spouse feel competent to cont hep as instructed BACKGROUND: Diagnoses (reason for Home Care): Pneumothorax Nicotine use disorder, F17.2 Severe protein-calorie malnutrition (HCC) Any o ne of the comorbidities from the list below may have a deleterious effect on the primary home care diagnosis. ACTIVE PROBLEM LIST Hyperlipidemia Basal Cell Carcinoma Prostate Cancer (Hcc) Lumbosacral Pain Pneumothorax Nicotine use disorder, F17.2 Severe Protein- Calorie Malnutrition (Hcc) Weight Bearing/Precaution Changes: no changes ASSESSMENT: Focus of visit: reassessment/review of hep /discharge Physical therapy discharged: goals achieved. Functional performance at discharge - bed mobility independent, transfers independent, ambulation independent and stairs independent. Plan of care, goals, and discharge reviewed and agreed upon with patient and/or caregiver. RECOMMENDATION: Patient discharged from PT and is active with SN. Instructions to include:begin outpatient therapy on tbd See intervention summary for intervention/education details. documented in this encounterLanc[facility] Hospital02-28-2023 Miscellaneous Notes* SN Routine - Stephanie Walls RN - 10/25/2022 9:46 AM EST SITUATION: Mcc routine visit completed today. spouse also present during today's visit. patient and caregiver reports the following: Allergies--reviewed Medications--reviewed current medications Falls--None DME-NONE BACKGROUND: Reason for Home Care: Pneumothorax ASSESSMENT: SN greeted at door by patient no DME and demonstrates stable gait. Patient appears in no acute distress. Vitals (see flow sheet for details): stable SN findings today: Pt presents today ambulating in his home without assist,his is present. he is wearing o2 continuous @ 2L/min, He removed his O2 during SN visit and his PsO2 dropped from 95 to91% within a few minutes. SN educated on O2 safety and usage, deep breathing, pacing activities andhome safety. Pt express he is on the waiting list for Pulmonary rehab, He has scheduled visits for SN and PT this week and next. SN chose to keep him for the next week for discharge, for continued pulmonary education and monitoring. A new NOMNC will need filled out. See intervention summary for education details. Patient demonstrated a need for further skilled SN services for chronic disease management & education and medication education. Current Discharge plan: self-care and family support RECOMMENDATION: Next visit to focus on (be specific): discharge? documented in this encounterLancaster [facility]02-27-2023 Miscellaneous Notes* PT ROUTINE/REASSESSMENT/RECERT/CASE MGMT - Indira Raymundo, PT - 10/24/2022 6:20 AM EST SITUATION: spouse present during today's visit. patient reports the following since the last homecare visit: medications/allergies--no changes, no fall. patient reports he is doing more walking and moving around later . He had pulmonary tests last week and is hopeful to begin pulmonary rehab soon. BACKGROUND: Diagnoses (reason for Home Care): Pneumothorax Nicotine use disorder, F17.2 Severe protein-calorie malnutrition (HCC) Any o ne of the comorbidities from the list below may have a deleterious effect on the primary homecare diagnosis. ACTIVE PROBLEM LIST Hyperlipidemia Basal Cell Carcinoma Prostate Cancer (Hcc) Lumbosacral Pain Pneumothorax Nicotine use disorder, F17.2 Severe Protein-Calorie Malnutrition (Hcc) Weight Bearing/Precaution Changes: no changes ASSESSMENT: Focus of visit progressed core strength exercises w/ yellow tband for HEP. Patient reports he feelsthr band exercises are going to help him with his posture denies pain and vitals stable throughout Plan of care, goals, and visit frequency reviewed and agreed upon with patient and/or caregiver. Current Discharge Plan: family support Anticipate discharge by 10/27/22 RECOMMENDATION: Next visit to focus on : PT discipline d/c. See intervention summary for intervention/education details. documented in this encounterLancaster [facility] Hospital02-23-2023 Miscellaneous Notes* PT ROUTINE/REASSESSMENT/RECERT/CASE MGMT - Minerva Venegas, ZIPPER SETTER - 10/20/2022 11:00 AM EST SITUATION: spouse present during today's visit. patient reports the following since the last homecare visit: medications/allergies--no changes, no fall. patient reports he is doing more walking and moving around later . BACKGROUND: Diagnoses (reason for Home Care): Weight Bearing/Precaution Changes: no changes ASSESSMENT: Focus of visit progressed core strength exercises w/ yellow tband for HEP. Patient reports he feelsthr band exercises are going to help him with his posture denies pain and vitals stable throughout Plan of care, goals, and visit frequency reviewed and agreed upon with patient and/or caregiver. Current Discharge Plan: family support Anticipate discharge by 10/27/22 RECOMMENDATION: Next visit to focus on increased reps if able See intervention summary for intervention/education details. documented in this encounterLancaster [facility] Hospital02-22-2023 Miscellaneous Notes* SN Routine - Carito Brown RN - 10/19/2022 11:43 AM EST SITUATION: Mcc routine visit completed today. daughter also present during today's visit. patient reports the following: Allergies--reviewed Medications--reviewed current medications Falls--None DME-Reviewed and added to chart BACKGROUND: Reason for Home Care: post pneumothorax assessment and care ASSESSMENT: SN greeted at door by caregiver. Upon entrance patient found in chair Patient appears in no acute distress. Patient/CG concerns verbalized today: none Vitals (see flow sheet for details): stable SN findings today: Patient pleasant and cooperative with SN assessment. Patient weight 125.8 down from 126lbs yesterday. He reports a good appetite and adequate nutrition. SN educated patient on increasing protein in diet, he verbalizes understanding. Patient wearing 3LO2 via NC. LCTA, BSx4, HRR, VSS, A&Ox4. SN reviewed NOMNC with patient/caregiver and signature obtained in hyperspace. Paitent/caregiver agreeable to discharge next week. Patient states he starts pulmonary therapy Monday. He denies any medication chagnes, urinary or bowel issues. Patient is using incentive spirometer as directed and doing home exercises. No other questions or concerns at this time. See intervention summary for education details. Patient demonstrated a need for further skilled SN services for chronic disease management & education, medication education and safety. Current Discharge plan: self-care and family support RECOMMENDATION: Next visit to focus on (be specific): Discharge if appropriate documented in this encounterLanc[facility]02-21-2023 Miscellaneous Notes* PT ROUTINE/REASSESSMENT/RECERT/CASE MGMT - Minerva Venegas PTA - 10/18/2022 12:08 PM EST SITUATION: spouse present during today's visit. patient reports the following since the last homecare visit: medications/allergies--no changes, no fall. patient reports he is feeling good . BACKGROUND: Diagnoses (reason for Home Care): pneumothorax [facility] 08/27-09/06 Weight Bearing/Precaution Changes: no changes ASSESSMENT: Focus of visit progression of strength exercises to include tband rows for postural strengthening. denies pain and vitals stabole throughout Plan of care, goals, and visit frequency reviewed and agreed upon with patient and/or caregiver. Current Discharge Plan: independent with home exercise program Anticipate discharge by 10/27/22 RECOMMENDATION: Next visit to focus on monitor response to tband rows and increase reps if able See intervention summary for intervention/education details. documented in this encounterLanc[facility] Hospital02-17-2023 Miscellaneous Notes* WILL PT ROUTINE/REASSESSMENT/RECERT/CASE MGMT - Minerva Venegas PTA - 10/14/2022 3:51 PM EST SITUATION: spouse present during today's visit. patient reports the following since the last homecare visit: medications/allergies--no changes, no fall. patient reports no new complaints. did exercises this morning. BACKGROUND: Diagnoses (reason for Home Care): pneumothorac Weight Bearing/Precaution Changes: no changes ASSESSMENT: Focus of visit increased reps and added mild resistance to restorator today. 1 seated rest break after performing step ups due to fatigue. Vitals stable throughout Plan of care, goals, and visit frequency reviewed and agreed upon with patient and/or caregiver. Current Discharge Plan: independent with home exercise program Anticipate discharge by 10/27/22 RECOMMENDATION: Next visit to focus on increase reps w/ step ups if able See intervention summary for intervention/education details. documented in this encounterLancaster [facility] Hospital02-17-2023 Miscellaneous Notes* WILL SN Routine - Gloria Beckham RN - 10/14/2022 1:36 PM EST SITUATION: Mcc routine visit completed today. spouse also present during today's visit. patient reports the following: Allergies--reviewed Medications--reviewed current medications Falls--None BACKGROUND: Reason for Home Care: post pneumothorax assessment and care ASSESSMENT: SN greeted at door by patient no DME and demonstrates stable gait. Patient appears in no acute distress. Patient/CG concerns verbalized today: no special concerns Vitals (see flow sheet for details): stable SN findings today: Pt ambulated to door to greet SN today. Shortness of breath is moderate but resolves within a minute of rest. Pt has been progressing well towards goals: weight is gradually increasing, he is tolerating more activities, continues to sleep upstairs in bed, appetite is much improved, he has been taking fluids well. Pt is scheduled for his pulmonary function tests next week. Anticipate dc from home health the week following. See intervention summary for education details. Patient demonstrated a need for further skilled SN services for chronic disease management & education, medication education and safety. Current Discharge plan: self-care and chronic care clinic RECOMMENDATION: Next visit to focus on (be specific): CP assessment, weight assessment (trying to gain), continued instruction on pulmonary management. NOMNC for probable dc next week. documented in this encounterL[facility]02-15-2023 Miscellaneous Notes* PT ROUTINE/REASSESSMENT/RECERT/CASE MGMT - Minerva Venegas PTA - 10/12/2022 10:03 AM EST SITUATION: spouse present during today's visit. patient reports the following since the last homecare visit: medications/allergies--no changes, no fall. patient reports he is feeling good . BACKGROUND: Diagnoses (reason for Home Care): pneumothorac Weight Bearing/Precaution Changes: no changes ASSESSMENT: Focus of visit progression of standing strengthening exercises for HEP. denies pain and vitals stable throughout Plan of care, goals, and visit frequency reviewed and agreed upon with patient and/or caregiver. Current Discharge Plan: independent with home exercise program Anticipate discharge by 10/27/22 RECOMMENDATION: Next visit to focus on increase reps See intervention summary for intervention/education details. documented in this encounterL[facility]02-09-2023 Miscellaneous Notes* PT ROUTINE/REASSESSMENT/RECERT/CASE MGMT - Minerva Venegas PTA - 10/06/2022 11:38 AM EST SITUATION: spouse present during today's visit. patient reports the following since the last homecare visit: medications/allergies--no changes, no fall. patient reports he is feeling good. BACKGROUND: Diagnoses (reason for Home Care): pneumothorax [facility] 08/27-09/06 Weight Bearing/Precaution Changes: no changes ASSESSMENT: Focus of visit progression of reps for strengthening and endurance . added toe taps for balance. Vitals stable throughout Plan of care, goals, and visit frequency reviewed and agreed upon with patient and/or caregiver. Current Discharge Plan: family support Anticipate discharge by 10/27/22 RECOMMENDATION: Next visit to focus on add step ups if able to prep for stair training See intervention summary for intervention/education details. documented in this encounterLancaster [facility] Hospital02-07-2023 Miscellaneous Notes* SN Routine - Gloria Beckham RN - 10/04/2022 2:51 PM EST SITUATION: Mcc routine visit completed today. spouse also present during today's visit. patient reports the following: Allergies--reviewed Medications--reviewed current medications Falls--None BACKGROUND: Reason for Home Care: post pneumothorax, COPD ASSESSMENT: SN greeted at door by caregiver. Upon entrance patient found in chair Patient appears in no acute distress. Patient/CG concerns verbalized today: no special concerns Vitals (see flow sheet for details): stable SN findings today:Pt is sitting in recliner, he states that he is having a good day, has participated in therapy and did very well, he also did exercises on his own this morning, took a shower and trimmed his phelps yesterday. He reports that pulmonogist started him on Trelegy last week and he has honestly felt an improvement in lung capacity. He reports that he has felt able to do more. reports that she has been concerned about some mild depression and pt initially disagreed but then didget a little teary and after discussing this today, he is going to talk to his PCP about it. Pt reports that when he saw member services representative; he is recommending pulmonary rehab. He is scheduled for pulmonary function tests and a CT scan on 10/21. He is going to try to do the therapy at [facility]. See intervention summary for education details. Patient demonstrated a need for further skilled SN services for chronic disease management & education. Current Discharge plan: self-care and family support RECOMMENDATION: Next visit to focus on (be specific): follow up on pulmonary rehab eval and plan for dc from home care. documented in this encounterLanc[facility]02-07-2023 Miscellaneous Notes* PT ROUTINE/REASSESSMENT/RECERT/CASE MGMT - Minerva Venegas PTA - 10/04/2022 12:30 PM EST SITUATION: spouse present during today's visit. patient reports the following since the last homecare visit: medications/allergies--no changes, no fall. patient reports he is feeling much better today. states meds seem to be helping w/ breathing. States he was able to stand for shower yesterday, wore O2 in shower which helped. Has been doing exercises 2x's day and has not had to turn O2 up for exercises. BACKGROUND: Diagnoses (reason for Home Care): pneumothorax [facility] 08/27-09/06 Weight Bearing/Precaution Changes: no changes ASSESSMENT: Focus of visit deep breathing exercises and throughout PT exercises. seated and standing LE strength and endurance exercises. Vitals stable throughout. and patient are checking o2 tubing daily for holes from cats Plan of care, goals, and visit frequency reviewed and agreed upon with patient and/or caregiver. Current Discharge Plan: pulmonary rehab Anticipate discharge by 10/27/22 RECOMMENDATION: Next visit to focus on add lateral stepping at sink See intervention summary for intervention/education details. documented in this encounterLanc[facility]02-03-2023 Miscellaneous Notes* PT ROUTINE/REASSESSMENT/RECERT/CASE MGMT - Griselda Lo, PT - 09/30/2022 9:01 AM EST SITUATION: spouse present during today's visit. patient reports the following since the last homecare visit: medications/allergies--new med added - trelegy, no fall. patient reports he went to the member services representative. Given new inhaler , can increase to 5l during activity. Has pulmonary testing on 10/21 then will be scheduled for pulmonary rehab at [place] BACKGROUND: Diagnoses (reason for Home Care): pneumothorax [facility] 08/27-09/06 Weight Bearing/Precaution Changes: no changes ASSESSMENT: Focus of visit seated and standing LE exercises for strength and balamce. Patient did require 1 seated rest break w/ standing exercisrs due to fatigue/SOB. quick recovery and vitals stable throughout., Denies pain, fatigued after Plan of care, goals, and visit frequency reviewed and agreed upon with patient and/or caregiver. Ptwould benefit from continued PT to address decreased activity tolerance, gait, balacne and steps toprepare for his transition to pulm rehab Current Discharge Plan: family support Anticipate discharge by 10/28/22 RECOMMENDATION: Next visit to focus on PT to see for reassessment See intervention summary for intervention/education details. documented in this encounterLancaster [facility] Hospital02-01-2023 Instructions* Patient Instructions* Patito Amaral MD - 09/28/2022 4:04 PM EST Do the Pulmonary Function Test as scheduled Do the Chest CT scan as scheduled Start Pulmonary Rehabilitation as scheduled COPD Plan: Use Trelegy once a day, everyday, even if you do not have symptoms. It is a long acting inhaler anddoes not quickly treat symptoms. It is meant to decrease the frequency you experience symptoms. Trelegy - 1 inhalation daily ---Instructional Video: https://www.[employer]/using-trelegy/index.html Use Albuterol (inhaler and/or nebulizer) as needed for symptoms only. This is a short acting inhaler and is mainly helpful at treating symptoms as they occur. Using it 15 minutes before exercise doeshelp prevent some exercise induced symptoms in some people. Albuterol (Proair, Proventil, or Ventolin) MDI - 1-2 puffs every 6 hours as needed for wheezing or shortness of breath. You can also use 1-2 puffs ten minutes before exercise or exertion. Use with your spacer. ---Instructional video: https://www.lung.org/mzww-iphkgp-jhk-diseases/jsdl-frymrvg-frwmfc/asthma/pat hxqp-abhbixmnc-idp-videos/videos/abm-vy-fzf-v-cktldat-njqv-inhaler.html It is very important that you try to exercise and stay active everyday. If your muscles get weaker,you will feel more breathless with activity. documented in this encounterLancaster [facility] Hospital02-01-2023 History of Present illness Narrative* Patito Amaral MD - 09/28/2022 3:00 PM EST Images from the original note were not included. [facility]IE[facility] COMPLIANT Posthospitalization follow-up HISTORY OF PRESENT ILLNESS Dimitri Painter is a 77 year old male with past medical history significant for tobacco use disorder,hyperlipidemia and glaucoma who presents today for posthospitalization follow-up for emphysema and left pneumothorax. He initially presented to [facility] on 08/25/22 with chest pain and shortness of breath and was found to have left-sided pneumothorax. CT chest showed multiple blebs. He had a chest tube placed and has a persistent air leak. He was transferred to [facility] on 08/27/22 for assessment of his chest tube and possibly blebectomy versus pleurodesis. Sputum culture grew gram- negative cocci treated with Abx. CT surgery consulted. CT chest initially placed 08/25 for large lateral bleb with compressive atelectasis, Chest tube upsized by IR on 08/31, changed to ws 09/03, clamped 09/04 and removed on 09/05/2022 chest tube today, follow up post pull cxr did not show residual pneumothorax. Per CTS patient did not need pleurodesis at this point. Patient was discharged on 09/06/2022 with supplemental oxygen and albuterol inhaler Patient is on 2 L continuous supplemental oxygen, he reports normal O2 saturation at rest but his saturation dips down to nearly 80s or late 70s with activity. Also he still reports shortness of breath, episodes of cough and sputum production. He has history of tobacco use, more than [id number]. He did quit after this hospitalization. He has significant weight loss, per patient he lost 30+ pounds over the last year. He denies chest pain, fever, hemoptysis. REVIEW OF SYSTEMS Constitutional: Negative for appetite change, chills, diaphoresis and fever. Positive for fatigue and weight loss HENT: Negative for dental problem, ear discharge, ear pain, facial swelling, nosebleeds. Eyes: Negative for pain, discharge, itching and visual disturbance. Respiratory: See HPI Cardiovascular: Negative for chest pain, palpitations and leg swelling. Gastrointestinal: Negative for abdominal distention, abdominal pain, anal bleeding, blood in stool,nausea and vomiting. Positive for poor appetite Endocrine: Negative for cold intolerance, heat intolerance and polydipsia. Skin: Negative for color change, rash and wound. Neurological: Negative for dizziness, seizures, speech difficulty and headaches. Hematological: Does not bruise/bleed easily. Psychiatric/Behavioral: Negative for confusion and hallucinations. PAST MEDICAL/SURGICAL/SOCIAL HISTORY PAST MEDICAL HISTORY Diagnosis Date Basal cell cancer right ear Cataract right eye Diverticulosis of colon (without mention of hemorrhage) Glaucoma High cholesterol Hypertension Personal history of colonic polyps Squamous cell carcinoma right forearm PAST SURGICAL HISTORY Procedure Laterality Date COLONOSCOPY FLX DX W/COLLJ SPEC WHEN PFRMD age 59 Colonoscopy COLONOSCOPY FLX DX W/COLLJ SPEC WHEN PFRMD 01/05/12 repeat 5 years PROSTATECTOMY;RADICAL RETROPUBIC REPAIR RETINAL DETACHMENT SCLERAL BUCKLING Scleral Buckle FAMILY HISTORY Problem Relation Age of Onset Heart Mother age 65 Diabetes Father age 89 Cancer Sister breast Social History Tobacco Use Smoking status: Former Packs/day: 0.50 Years: 40.00 Pack years: 20.00 Types: Cigarettes Quit date: 08/25/2022 Years since quittin.0 Smokeless tobacco: Never Tobacco comments: Pt stopped smoking the day he was admitted into the hospital. Vaping Use Vaping Use: Never used Substance Use Topics Alcohol use: No Comment: rare Drug use: No MEDICATIONS AND ALLERGIES hwbdgfznucn-ngxagaqbd-voshxnkk (TRELEGY ELLIPTA) 200-62.5-25 mcg inhalation powder Inhale 1 Puff asinstructed once daily. albuterol HFA (PROAIR HFA) 90 mcg/actuation inhaler Inhale 2 Puffs by mouth every 4 hours as neededfor wheezing/shortness of breath. Take as directed OXYGEN, HOME THERAPY, 2 L/min by Nasal Cannula route once in interventional radiology. vit A,C,W-Wvdr-Colhvs (PRESERVISION AREDS) 2,148 mcg-113 mg-45 mg-17.4mg tab Take 1 tablet by mouthtwice daily. lovastatin 40 mg tablet Take 1 tablet by mouth daily at bedtime. aluminum-magnesium hydroxide-simethicone (MAALOX,MYLANTA,MAG-AL PLUS) 200-200-20 mg/5 mL suspensionTake 30 mL by mouth every 6 hours as needed. docusate sodium (COLACE) 100 mg capsule Take 1 capsule by mouth twice daily as needed for constipation. guaiFENesin (MUCINEX) 600 mg 12 hr tablet Take 1 tablet by mouth every 12 hours as needed (congestion). aspirin, enteric coated (ASPIRIN, ENTERIC COATED) 81 mg EC tablet Take 81 mg by mouth once daily. Indications: prevention of transient ischemic attack acetaminophen (TYLENOL) 500 mg tablet Take 2 tablets by mouth every 6 hours as needed for pain. Indications: pain Propylene Glycol-Glycerin 1-0.3 % drop Use in both eyes. TIMOLOL MALEATE OPHTHALMIC Use in eyes. Left eye polyethylene glycol 3350 (MIRALAX, GLYCOLAX) 17 gram packet Take 1 Packet by mouth once daily as needed for constipation. Dissolve dose in 4 - 8 ounces of liquid and take as directed. ALLERGIES Allergen Reactions Anesthesia S/I-40 (* Other: See Comments With use of anesthesia knocks him out, doesn't need much per . PHYSICAL EXAM BP 112/74 Pulse 100 Temp (Src) 98.2 (Temporal) Resp 16 Ht 5' 8 (1.73m) Wt 116 lb (52.6kg) SpO2 88% BMI 17.64 kg/(m^2). GEN: Normal appearance. No acute distress. Cachectic HEAD: Normocephalic, atraumatic. EYES: Anicteric sclera. EOMI. NECK: Supple CV: RRR, no murmur, gallop, or rubs. BP as documented RESP: No wheezing. No crackles. No chest wall tenderness. ABD: Soft, non-tender, non-distended. Bowel sounds normal. EXTR: No clubbing, cyanosis, or edema. NEURO: Alert and oriented X 3. Speech intact. No focal deficit present. PSYCH: Mood normal. Behavior normal. Thought content normal. DIAGNOSTIC REVIEW I personally reviewed and interpreted the labs, PFTs and radiographs LABs WBC (k/uL) Date Value 09/04/2022 7.63 RBC (m/uL) Date Value 09/04/2022 4.36 Hemoglobin (g/dL) Date Value 09/04/2022 14.2 Hematocrit (%) Date Value 09/04/2022 45.8 MCV (fL) Date Value 09/04/2022 105.0 (H) MCH (pg) Date Value 09/04/2022 32.6 MCHC (g/dL) Date Value 09/04/2022 31.0 RDW-CV (%) Date Value 09/04/2022 13.0 Platelet Count (k/uL) Date Value 09/04/2022 165 MPV (fL) Date Value 09/04/2022 9.5 Glucose (mg/dL) Date Value 09/04/2022 89 BUN (mg/dL) Date Value 09/04/2022 28 (H) Creatinine (mg/dL) Date Value 09/04/2022 0.63 (L) Sodium (mmol/L) Date Value 09/04/2022 134 (L) Potassium (mmol/L) Date Value 09/04/2022 5.5 (H) Chloride (mmol/L) Date Value 09/04/2022 94 (L) CO2 (mmol/L) Date Value 09/04/2022 34 (H) Protein, Total (g/dL) Date Value 08/29/2022 6.4 Albumin (g/dL) Date Value 09/04/2022 2.9 (L) Calcium, Total (mg/dL) Date Value 09/04/2022 9.2 Alkaline Phosphatase (U/L) Date Value 08/29/2022 73 Bilirubin, Total (mg/dL) Date Value 08/29/2022 0.6 AST (U/L) Date Value 08/29/2022 26 ALT (U/L) Date Value 08/29/2022 22 Cholesterol, Total (mg/dL) Date Value 06/28/2022 158 Triglyceride (mg/dL) Date Value 06/28/2022 66 PFT: Ordered today RADIOLOGY: CXR: 09/05/2022 No pneumothorax following removal of the left chest tube. Small left pleural effusion with left basilar subsegmental atelectasis. Emphysema. Subcutaneous emphysema along the left chest wall and base of the neck on the left, not significantly changed. CT Chest: Last CT/CTA Chest/Lungs No resulted procedures found. OTHER TESTS: ECHO No results found for this or any previous visit (from the past 57224 hour(s)). VACCINATION: Immunization History Administered Date(s) Administered COVID-19 original vaccine, age 12+ yr, monovalent ([employer] - PURPLE TOP) 11/05/2020 11/26/2020 08/12/2021 Influenza Seasonal - High Dose - Age 65+ 05/26/2016 Influenza Vaccine, Split-Non Spec 06/22/2011 07/09/2012 Pneumococcal-13 Vac Conjugate 05/26/2016 Pneumovax 08/28/2009 Tetanus Diphtheria Booster (Age >7) Pres Free 11/19/2018 influenza, high-dose, quadrivalent vaccine (FLUZONE HIGH DOSE QUADRIVALENT) 07/02/2021 ASSESSMENT AND PLAN 77 year old male with past medical history significant for tobacco use disorder, hyperlipidemia andglaucoma who presents today for posthospitalization follow-up for emphysema and left pneumothorax. 1. Chronic hypoxemic respiratory failure (HCC) - ICD9: 518.83, 799.02, ICD10: J96.11 (primary diagnosis) 2. Pulmonary emphysema, unspecified emphysema type (HCC) - ICD9: 492.8, ICD10: J43.9 3. Bullous emphysema (HCC) - ICD9: 492.0, ICD10: J43.9 4. Other pneumothorax - ICD9: 512.89, ICD10: J93.83 5. Former tobacco use - ICD9: V15.82, ICD10: Z87.891 #Chronic hypoxemic respiratory failure -Currently on continuous 2 L supplemental oxygen Plan: Continue supplemental O2 Obtain oximetry with ambulation #Emphysema -Emphysematous changes on chest imaging -No previous PFTs -Significant smoking history Plan: Started Trelegy Continue albuterol as needed Start pulmonary rehabilitation Obtain chest CT scan Obtain PFTs Consult to nutrition #Left-sided pneumothorax -Spontaneous left-sided pneumothorax likely in the setting of subpleural blebs -S/p chest tube placement and removal with lung reexpansion Plan: Obtain CT scan to evaluate lung parenchyma and risk of pneumothorax recurrence #Former tobacco use -Significant smoking history, more than 40 pack-year -Quit recently after this hospitalization Plan: Continue smoking cessation Patient's questions and concerns were addressed prior to discharge today. Patient verbalized understanding and is agreeable with the plan. Objective testing was reviewed with this visit. Followup discussed. Return in about 4 weeks (around 10/26/2022). Patito Amaral MD Staff physician Pulmonary and Critical Care [facility] Pager / phone [phone] Medical Decision Making: Level: 4 - Moderate documented in this encounterL[facility]01-31-[facility]23 Miscellaneous Notes* SN Routine - Gloria Beckham RN - 09/27/2022 3:41 PM EST SITUATION: Mcc routine visit completed today. spouse also present during today's visit. patient reports the following: Allergies--reviewed Medications--reviewed current medications Falls--None BACKGROUND: Reason for Home Care: post hospital for pneumothorax, assessment and instruction for recovery. ASSESSMENT: SN greeted at door by caregiver. Upon entrance patient found in chair Patient appears in no acute distress. Patient/CG concerns verbalized today: no special concerns Vitals (see flow sheet for details): stable SN findings today: Pt is sitting in chair, he is in good spirits. He is wearing the oxygen continuously and has been montiroing his pulse ox at various times throughout the day. He states that even with the oxygen on, his pulse ox has dropped into the 70's but recovers quickly and this has not monica regular occurence. He admits to having to remind himself to do the deep breathing as he is walking. He has been using the albuterol inhaler on occasion, continues to take the mucinex, cough does not seem quite as moist today. 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 Lungs are clear with fairly good aeration today. Pt reports that he has been sleeping upstairs now and has been resting better. He also reports that he has been taking the stool softener daily and bowels have been moving more regular. His appetite has been fair, he is supplementing with Boost 2-3 times a day and SN also insturcted pt on protein snacks such as nuts which he states that he does like to eat. Overall, there does appear to be improvement in his overall self homemanagement. See intervention summary for education details. Patient demonstrated a need for further skilled SN services for chronic disease management & education. Current Discharge plan: self-care and family support RECOMMENDATION: Next visit to focus on (be specific): pulmonary assessment and instruction. Follow up on pulonologyappt from 09/28 and discuss possible transition to pulmonary rehab when pt feels up to getting out. documented in this encounterL[facility]01-27-2023 Miscellaneous Notes* PT ROUTINE/REASSESSMENT/RECERT/CASE MGMT - Minerva Venegas PTA - 09/23/2022 12:00 PM EST SITUATION: spouse present during today's visit. patient and caregiver reports the following since the last homecare visit: medications/allergies--no changes, no fall. patient reports he feels like he can take deeper breaths now w/ using spirometer. BACKGROUND: Diagnoses (reason for Home Care): pneumothorax [facility] 08/27-09/06 Weight Bearing/Precaution Changes: no changes ASSESSMENT: Focus of visit progression of strength and balace exercises for HEP. Able to increase time on restorator. Encouraged walking in home every 1-2 hours and deep breathing exercises several times/dy Plan of care, goals, and visit frequency reviewed and agreed upon with patient and/or caregiver. Current Discharge Plan: family support Anticipate discharge by 09/29/22 RECOMMENDATION: Next visit to focus on stair training See intervention summary for intervention/education details. documented in this encounterLanc[facility]01-24-2023 Miscellaneous Notes* PT ROUTINE/REASSESSMENT/RECERT/CASE MGMT - Minerva Venegas PTA - 09/20/2022 1:55 PM EST SITUATION: spouse present during today's visit. patient and caregiver reports the following since the last homecare visit: medications/allergies--no changes, no fall. patient reports he is doing ok . Patient stated nurse was out today and told him to wear O2 with all walking and to increase fluid intake BACKGROUND: Diagnoses (reason for Home Care): pneumothorax [facility] 08/27-09/06 Weight Bearing/Precaution Changes: none ASSESSMENT: Focus of visit reviewed and performed seated LE strength exercises for HEP. restoratir x's 5min, slow continous pace. Vitals stable throughout. Plan of care, goals, and visit frequency reviewed and agreed upon with patient and/or caregiver. Current Discharge Plan: independent with home exercise program Anticipate discharge by 10/01/22 RECOMMENDATION: Next visit to focus on add standing heel raises See intervention summary for intervention/education details. documented in this encounterL[facility]01-24-2023 Miscellaneous Notes* HH SN Routine - Gloria Beckham RN - 09/20/2022 11:41 AM EST SITUATION: Mcc routine visit completed today. spouse also present during today's visit. patient reports the following: Allergies--reviewed Medications--reviewed current medications Falls--None BACKGROUND: Reason for Home Care: post hospital for pneumothorax ASSESSMENT: SN greeted at door by caregiver. Upon entrance patient found in chair Patient appears in no acute distress. Patient/CG concerns verbalized today: pt and spouse verbalize that pt does not seem to be toleratigactivity as well as she should. Spouse states that she feels that pt needs to be walking more, evenif just in the house. Pt reports that he has been taking the oxygen off to go to the bathroom and his pulse ox can drop as low as 80% when he does this. He reports that is recovers quickly to low 90 r tisha after getting back to chair and putting oxygen back on. Vitals (see flow sheet for details): stable SN findings today: Pt is sitting in recliner. Spouse is concerned that he is not getting enough exercise. She feels that he is spending too much time sitting in the recliner. Pt reports that this is partly due to having low pulse ox with ambulation. SN did a walk with pt to and from the bathroom while keeping the oxygen on and doing pursed lip breathing during the walk. Pulse ox was left on finger continuously and it did not drop below 94%. This was encouraging to pt. SN instructed pt that he should be getting up every 1-2 hours for a walk, even if just to the kitchen and back. Pt has a fequent cough which is only a fiar effeort, noted to be moist. SN encouraged pt to use the mucinex as recommended. Main focus of insruction today was on hydration, adequate nutrition, regular exercises andbreathing techniques. Pt was receptive to instruction and spouse will be able to help pt follow through. Also discussed bowel habits which pt states that he does have issues with being constpated. SNsuggested that he take the Colace every day to keep up with bowels rather than not having a BM and then taking the Colace several days in order to get results. See intervention summary for education details. Patient demonstrated a need for further skilled SN services for chronic disease management & education, medication education and safety. Current Discharge plan: self-care and family support RECOMMENDATION: Next visit to focus on (be specific): follow up on pt follow through with instructions today. documented in this encounterL[facility]01-20-2023 Miscellaneous Notes* PT ROUTINE/REASSESSMENT/RECERT/CASE MGMT - Griselda Lo, PT - 09/16/2022 9:11 AM EST SITUATION: spouse present during today's visit. patient reports the following since the last homecare visit: medications/allergies--no changes, no fall. patient reports im not so good this morning Pt explains that there is nothing specifically wrong today but he is discouraged with his slow progress . BACKGROUND: Diagnoses (reason for Home Care): pneumothorax [facility] 08/27-09/06 Past Medical History: Basal Cell Carcinoma Prostate Cancer (Hcc) Lumbosacral Pain Pneumothorax Nicotine use disorder, F17.2 Severe Protein-Calorie Malnutrition (Hcc) Weight Bearing or Surgical Precautions: none ASSESSMENT: Focus of visit restorator and ambulation for functional stamina with close monitring of his PSO2 seated ther ex Patient will benefit from continued physical therapy to address the following deficits: strength, balance, gait and endurance. Current Discharge Plan:independent with home exercise program. Anticipate discharge by 10/01/22 RECOMMENDATION: Next visit to focus on review HEP, gait See intervention summary for intervention/education details. documented in this encounterLancaster [facility]01-17-2023 History of Present illness Narrative* Otilia Lopez MD - 09/13/2022 2:20 PM EST Transitional Care Management TCM Eligibility Documentation The following information was gathered during the initial Patient Outreach Encounter. Date of Outreach: 09/07/2022 Outreach Attempt 1: Contact Made Date of Discharge 09/06/2022 Some recent data might be hidden Provider Documentation Dimitri Painter is a 77 year old male here today for a follow up from recent hospitalization. I have reviewed the patient's hospital course including discharge summary, discharge medications , and follow up needs with the patient and any family members present at today's visit. [facility] Hospital f/u, 7 day TCM Pt here today with his , Kasie. Pt here today for a a 7 day TCM. Pt was admitted into [facility] from 08/25/22 - 08/27/22. He was then transferred to [facility] on 08/27/22 and discharged on 09/06/22. states that pt went into [facility] ED due to increased shortness of breath and gasping with minimal exertion. Pt was taken in by the squad. Pt today states that at times he feels his breathing does feel better then before he went into the Hospital. Does have times where his breathing is more difficult. Doing spirometry incentive exercises. Since he's been home, he's been following Doctor's instructions with using his medication, inhalers and oxygen when needed. Patient denies feeling any sudden pain when the lung collapsed. Pulm - Following with Dr. Wisdom with [facility] on 09/28/22 due to hx of pneumothorax; collapsedlung. Pt currently on 2 L of O2. Using more as needed, but has been using it more today then he hasbeen. Pt checking pulse ox at home regularly. His pulse ox is going into the mid to low 80's with ambulating with O2, but will recover. Sitting on RA pulse ox around 89-91. Sitting with his O2 on he's around 92-96. He's since quit smoking since admitted into the hospital. Still coughing up dark colored phlegm. Was previously coughing up clot/blood type sputum. Still having dark sputum but the nurse thought this may be related to smoking. Using inhaler as needed and Mucinex. Receiving O2 from [employer] out of [place]. Weight - Having weight loss, despite patient stating he has a good appetite, eating almost 3 x a day. He's following a high protein diet, but continues to lose weight. states that he's eating more now then he was leading up into going into the Hospital. Was drinking Ensure/Boost prior to hospital visit. Now he's eating the High Protein. Still has dressing on chest tube site. HH coming out once weekly. PT coming out twice weekly. OT was not needed, due to pt being able to function and perform duties as required. Discharge Diagnosis (1) Pneumothorax: Status: Acute Code(s): J93.9 - Pneumothorax, unspecified Qualifiers: Pneumothorax type: spontaneous, primary Qualified Code(s): J93.11 - Primary spontaneous pneumothorax Plan 1. Left pneumothorax-secondary to COPD with bleb rupture, patient's chest tube remains on suction at this time, general surgery is participating in his care, there is a persistent air leak and the patient will need to be transferred to a facility with a chest surgeon. [facility] is agreed to take the patient when a bed is available #2 acute hypoxic respiratory failure secondary to left pneumothorax and severe COPD-patient is now on nasal cannula oxygen at 6 L. #3 severe COPD-due to the patient's episode of atrial fibrillation today, I have elected to keep the patient off aerosol treatments #4 positive sputum for gram-negative cocci-etiology unclear at this time, patient is running a low-grade temp at this time, I have decided to place the patient on Augmentin, sputum culture will be pending #5 paroxysmal atrial fibrillation-patient was in atrial fibrillation for approximately 3 to 4 hourstoday, he converted to normal sinus rhythm, I do not feel the patient should be on anticoagulation at this time, I have elected to leave the patient on digoxin orally and an oral beta-yudith. Hospital Course: This 77-year-old white male was seen in the emergency room at [facility] with a chief complaint of shortness of breath, x-rays were obtained which showed a pneumothorax on the left, CT scan was performed which showed extensive emphysematous changes in his lungs along with large blebs in the left lung. General surgery was contacted, a chest tube was inserted in the emergency room which provided some reexpansion of the left lung. Patient required supplemental oxygen due to hypoxiaand respiratory distress. Patient was admitted to [place] [address], he continued to have an air leak from the left-sided chest tube and in follow-up with surgery in the hospital, it was recommended by general surgery (Dr. Moncada) that he be transferred to tertiary facility for possible excision of part of his left lung. [facility] was contacted and agreed to take the patient. Patient was seen on 08/27/2022: On examination he appeared cachectic and frail. Vital signs as documented. Skin warm and dry and without overt rashes. Neck without JVD, neck was supple, trachea midline, thyroid was normal. Lungs: Scattered expiratory rhonchi were noted bilaterally, decreased breathsounds were noted overall. Heart exam notable for regular rhythm, normal sounds and absence of murmurs, rubs or gallops. Abdomen unremarkable and without evidence of organomegaly, masses, or abdominal aortic enlargement. Bowel sounds are present, abdomen is not distended. Extremities nonedematous, no cyanosis was noted, no clubbing was noted. Neuro: Cranial nerves II through XII are grossly intact, no focal motor deficits were noted, sensation to light touch and pinprick intact, motor exam 5/5 throughout. Psych: Patient is alert and oriented x3, he does not appear anxious or depressed, he does not appear agitated. Patient was transferred to [facility] for further care on 08/27/2022 in stable condition. [facility], General Internal Medicine H&P on 08/28/22. HPI: This is a 77 year old male with hx of HTN, HL, COPD, skin cancer, tobacco use, who had a left sided pneumothorax two days ago. A CT chest showed multiple blebs. He was admitted to [facility]. He had a chest tube placed and has a persistent air leak. He was transferred here ([facility]) for assessment of his chest tube and possible blebectomy. His sputum is growing gram negative cocc i. He has mild SOB and chest pain. Pt denies headache, fever, chills, vision changes, swallowing problems, neck pain, cough, abdominal pain, flank pain, nausea, vomiting, diarrhea, constipation, bleeding, urinary problems, muscle pain or weakness, numbness, tingling, or joint pain/swelling. No other associated symptoms. No other known aggravating or relieving factors PHYSICAL EXAMINATION BP 108/80 (BP Site: Left Arm, BP Position: Sitting, BP Cuff Size: Regular Adult) Pulse 92 Resp 20 Wt 54.3 kg (119 lb 12.8 oz) SpO2 94% BMI 19.34 kg/m GENERAL: well appearing, alert, in no acute distress and with O2 on. Thin. HEART: Regular rate and rhythm. No murmur, rubs or gallops. LUNGS: clear to auscultation, no wheezing, rhonchi, or crackles ASSESSMENT/PLAN: 1. Hospital discharge follow-up - ICD9: V67.59, ICD10: Z09 (primary diagnosis) - Stable today. - Continue using O2 when needed. - Keep follow up as scheduled with Pulmonary 2. Pneumothorax on left - ICD9: 512.89, ICD10: J93.9 - Stable - Looked at dressing today, can use waterproof bandage. - Continue current medication regimen of Mucinex, Albuterol Inhaler and O2. 3. Mixed hyperlipidemia - ICD9: 272.2, ICD10: E78.2 - good control based off last labs - Continue current medication. - COMP METABOLIC PANEL - LIPID PANEL BASIC - LOVASTATIN 40 MG TABLET 4. Essential hypertension - ICD9: 401.9, ICD10: I10 - good control - COMP METABOLIC PANEL - LIPID PANEL BASIC 5. Weight loss - ICD9: 783.21, ICD10: R63.4 - Discussed foods high in Protein/calorie - Add boost supplement to each meal. 6. Tobacco use disorder - ICD9: 305.1, ICD10: F17.200 - Cessation encouraged. - pt at present time is not smoking. 3 mo f/u with labs. I agree with the Chief Complaint, ROS, and Past Histories independently gathered by the clinical clinical support specialist and the remaining scribed note accurately describes my personal service to the patient. Otilia Lopez MD The documentation for this note was completed by Tatiana Earl Ma acting as scribe for Otilia Lopez MD. September 13, 2022 3:11 PM. Tatiana Earl Ma documented in this encounterLancaster [facility]01-17-2023 Miscellaneous Notes* PT EVALUATION - Griselda Lo, PT - 09/13/2022 10:16 AM EST SITUATION: spouse present during today's visit. patient reports the following since the last homecare visit: medications/allergies--no changes, no fall. patient reports im doing better I think Pt not wearing O2 on my arrival. i'm trying not to . BACKGROUND: Diagnoses (reason for Home Care): pneumothorax [facility] 08/27-09/06 Past Medical History: Basal Cell Carcinoma Prostate Cancer (Hcc) Lumbosacral Pain Pneumothorax Nicotine use disorder, F17.2 Severe Protein-Calorie Malnutrition (Hcc) Weight Bearing or Surgical Precautions: none ASSESSMENT: Patient evaluated by [facility] physical therapy. Reviewed and explained homecare services. Plan of care, goals, and visit frequency developed, reviewed, and agreed upon with patient and/or caregiver. Patient Goal: get my strength back Patient will benefit from continued physical therapy to address the following deficits: strength, balance, gait and endurance. Current Discharge Plan:independent with home exercise program. Anticipate discharge by 10/01/22 RECOMMENDATION: Next visit to focus on review HEP, gait See intervention summary for intervention/education details. documented in this [facility]13[facility]23 Miscellaneous Notes* Telephone Encounter - Otilia Lopez MD - 09/09/2022 11:39 AM EST Noted OK to continue inhaler and eye drops, will monitor Otilia Lopez MD * Telephone Encounter - Lin Hart RN - 09/08/2022 11:28 PM EST Patient admitted to [facility] on 09/08/22 SN 1xw for 8 weeks. Severe interactions noted, albuterol inhaler and timolol eye drops. documented in this encounterL[facility]01-12-2023 Miscellaneous Notes* SN SOC - Lin Hart RN - 09/08/2022 3:50 PM EST SITUATION: [facility] SOC visit completed today. spouse also present during today's visit. patient and caregiver reports the following: Allergies--reviewed Medications--full medication reconciliation completed and reviewed current medications Falls--None DME-Reviewed and added to chart BACKGROUND: Discharged/Referral from [facility] on 09/06/22 following treatment for pneumothorax Pertinent referral information or other diagnoses that may affect plan of care: Hyperlipidemia Basal Cell Carcinoma Prostate Cancer (Hcc) Lumbosacral Pain Pneumothorax Nicotine use disorder, F17.2 Severe Protein-Calorie Malnutrition (Hcc) ASSESSMENT: SN greeted at door by caregiver. Upon entrance patient found in chair Patient appears in no acute distress. Patient lives at home with spouse multimedia developer. Home environment: cluttered and has pets: several cats. SOC booklet reviewed & completed with patient and consent obtained for Home Care services. Patient/CG concerns verbalized today: No new concerns at today's visit. Vitals (see flow sheet for details): stable SN findings today: Patient is alert and oriented and up to chair during skilled nurse visit. Patient's spouse present and is helpful with assessment as well. Patient has all medications in the home. Spouse manages medications. Both spouse and patient verbalize understanding of all medication actions, purpose, and adverse effects. Patient discharged home with oxygen concentrator and back up tank. Patient has not needed oxygen at rest. He has pulse ox and checks throughout day. He is 95 to 97% spO2 on room air at rest. Patient has productive cough that he reports is yellow thick with some streaks of blood. Patient denies any blood clots in sputum since discharge. Patient has some bruising/broken capillaries on top of bilateral feet that he noticed upon discharge. No edema. Lungs have some wheezes and diminished on left and clear right upper and right lower lobes clear. Patient is using incentive spirometer. He has no open areas to skin or issues. Patient denies any pain. He does not useassistive device throughout home. There is a working stair chair lift that patient is using at the time. Spouse is assisting patient with bathing. Patient reports he is no longer smoking. He has goodappetite and is also drinking ensure supplements. Patient agreeable to SN 1 x weekly and PT/OT referral assessments. See intervention summary for education details and skills performed. Plan of care and visit frequency established with patient and plan of care agreed upon. Patient demonstrated a need for further skilled SN services for chronic disease management & education, medication education, safety and infection control/prevention. RECOMMENDATION: Visit Frequency: 1w8 Need for additional services: Patient agreeable to PT and OT referrals. Patient declined N/A referrals. Additional concerns to be followed up on: NONE Next visit to focus on (be specific): Continue to provide disease and medication management. documented in this encounterL[facility]01-11-2023 Miscellaneous Notes* Telephone Encounter - Eboni Shoshana - 09/07/2022 12:54 PM EST Patient confirmed 09/08/22 SOC for [facility] services. Eboni Anna 09/07/2022 12:56 PM documented in this encounterLanc[facility] Hospital01-11-2023 History of Present illness Narrative* Catia Eugene RN - 09/07/2022 10:39 AM EST TRANSITIONAL CARE MANAGEMENT (TCM) COMMUNITY MONITORING PROGRAM Provider Action/FYI: [facility] following Spoke with patient and spouse, denies pain, some sob with exertion, on 2 liters oxygen, to flower picker oximeter this afternoon, no fever/chills, no N/V, eating small meals, drinking fluids, feels much better- will schedule follow-up appts herself. SUMMARY: Pt discharged from [facility] on 09/06/22. Admitted for: left sided pneumothorax Contact made with patient: Yes Hi my name is Catia Eugene RN and I am calling from the [facility] on behalf of your PCP,Otilia Lopez MD I understand you were recently in the hospital so I am calling to check in with you to ensure you are feeling well now that you're home. May I ask you a few questions related toyour hospital stay and well-being? Yes Contact with patient post discharge, spoke to patient and spouse. Patient identified by name and . Do you feel your health is BETTER, WORSE, or the SAME since leaving the hospital? Better ACTION TAKEN: Patient indicated symptoms are better or same, no action required. Continue outreach. MEDICATIONS: Many patients have questions or concerns about their medications once they are home. Do you have any questions about taking your medications or which medication you should be on? No Do you need any medication refills at this time, including any of the medications you might take only when needed? No ACTION TAKEN: No action required For RNs or Pharmacy completing outreach ONLY, was a medication review completed? Yes SOCIAL: We would like to make sure you have what you need so that your basics needs are met - including your personal safety, food, housing and medications. Would you like to speak with a social work rehabilitation team lead to help give you support for any of these needs? No It can be normal to feel anxious or down during a time like this. Would you like to talk to a mental health professional about how you have been feeling? No ACTION TAKEN: No action taken DISCHARGE INTRUCTIONS: Your discharge instructions / After Visit Summary (AVS) are important in guiding you through the recovery process. Do you have any questions related to your discharge instructions? No Do you have all the necessary equipment and supplies at home? Yes ACTION TAKEN: No action required I would like to help you schedule a hospital follow-up virtual or telephone visit with your PCP. This is a great way for you to connect with your provider to ensure you have safely transitioned home.If you are agreeable, I will send your request to a masonry contractor who will contact and assist you with that appointment. This will give you an opportunity to ask any questions or address any concerns youmay have with your PCP. Inform the patient that if they have any questions or concerns prior to that appointment, to call their PCP's office right away. ACTION TAKEN: No action required, patient declines appointment. Your doctor would like us to remind you of the recommendations regarding the coronavirus (Covid19) outbreak: Avoid public places as much as possible. Avoid close contact (within 6 feet) with others you don t live with, especially if they are sick. Stay home if you are sick. Wash your hands regularly for at least 20 seconds with soap and water. Wear a cloth mask in public places to help reduce community spread. Do not go to your Doctor s office unless instructed to do so. For any non- emergency symptoms, call your Doctor s office to get instructions on how to manage (we might recommend a telephone or virtualvisit). For emergency symptoms, proceed to Emergency Department as usual but inform them of cough and fever symptoms BERNARD if present (or call on the way if possible). VENKAT Education Ordered -: No TCM Home Visit Referral Source of Stratification: [facility] Hospital Admission Status: Discharged Readmission Risk Score: 11 DENZEL Score: 21 Patient meets program referral criteria: No Patient does not qualify for High Risk TCM Home Visit program due to: Discharged home, does not meet program criteria Catia Eugene RN September 07, 2022 10:58 AM documented in this encounterLancaster [facility] Hospital01-10-2023 Miscellaneous Notes* Telephone Encounter - Sophia Patricio - 09/06/2022 4:11 PM EST Welcome Home Call: a. Date and Time: 4:23 PM 09/06/2022 b. Contact name/relationship: Kasie/spouse c. Have you been active with any Home Care company in the last 60 days(such as help with bathing, filling medications, checking your blood pressure) ? No. d. Was patient given Flu shot this Season (After Apr,): No: not yet e. [facility] will be providing your care, are you agreeable to starting these services? yes (yes or no) f. Do you have any upcoming appointments in the next few days, or restrictions to your schedule? no g. Caregiver: Yes - Caregiver name Kasie ; spoke with Kasie to confirm 09/06/22 h. Confirmed Visited Location and preferred #: yes Please keep our your medications both over the counter and prescribed out for the home care to review, your hospital discharge instructions and write down any questions you might have. In order to maintain a safe environment for our caregivers, [facility] requires anyanimals or weapons present in the home be located in a secured location. Our clinicians will call you the night before or the morning of the appointment. Their # may come up restricted but they'll leave a VM for you. In case you have any questions or concerns in the meantime, our # is [phone], option [phone] Thank you for your time and have a great day. Sophia Curry documented in this encounterLanc[facility] Hospital01-06-2023 Miscellaneous Notes* Telephone Encounter - Otilia Lopez MD - 09/02/2022 4:51 PM EST I am agreeable to signing and following for HHC services Otilia Lopez MD * Telephone Encounter - Ann Marie Recio LPN - 09/02/2022 4:38 PM EST Otilia Lopez MD Please advise if you are agreeable to signing and following for HHC services? Our Clinicians will be sending the Plan of Care to you for review and approval. They will reach out for any appropriate orders required to provide home care services for the patient. We are not able to initiate HHC services without a following provider. Home care clinicians may also obtain orders from [facility] Providers Thank you and we would be happy to answer any questions. Ann Marie Recio LPN 09/02/2022 4:38 PM documented in this encounterLanc[facility]07-18-2013 History of Past illness Narrative* Problem Noted Date Resolved Date Trochanteric bursitis 03/14/2013 11/17/2017 BPH (benign prostatic hyperplasia) 07/26/2012 11/17/2017 Elevated prostate specific antigen (PSA) 012 11/17/2017 Hypertension 06/22/2011 12/08/2020 documented as of this encounter (statuses as of 09/03/2022) [facility] Narrative* Problem Noted Date Resolved Date Trochanteric bursitis 03/14/2013 11/17/2017 BPH (benign prostatic hyperplasia) 07/26/2012 11/17/2017 Elevated prostate specific antigen (PSA) 07/26/2 012 11/17/2017 Hypertension 06/22/2011 12/08/2020 documented as of this encounter (statuses as of 09/06/2022) [facility] Narrative* Problem Noted Date Resolved Date Trochanteric bursitis 03/14/2013 11/17/2017 BPH (benign prostatic hyperplasia) 07/26/2012 11/17/2017 Elevated prostate specific antigen (PSA) 012 11/17/2017 Hypertension 06/22/2011 12/08/2020 documented as of this encounter (statuses as of 09/07/2022) [facility] Narrative* Problem Noted Date Resolved Date Trochanteric bursitis 03/14/2013 11/17/2017 BPH (benign prostatic hyperplasia) 07/26/2012 11/17/2017 Elevated prostate specific antigen (PSA) 2 012 11/17/2017 Hypertension 06/22/2011 12/08/2020 documented as of this encounter (statuses as of 09/09/2022) [facility] Narrative* Problem Noted Date Resolved Date Trochanteric bursitis 03/14/2013 11/17/2017 BPH (benign prostatic hyperplasia) 07/26/2012 11/17/2017 Elevated prostate specific antigen (PSA) 2 012 11/17/2017 Hypertension 06/22/2011 12/08/2020 documented as of this encounter (statuses as of 09/13/2022) [facility]ative* Problem Noted Date Resolved Date Trochanteric bursitis 03/14/2013 11/17/2017 BPH (benign prostatic hyperplasia) 07/26/2012 11/17/2017 Elevated prostate specific antigen (PSA) 07/26/2 012 11/17/2017 Hypertension 06/22/2011 12/08/2020 documented as of this encounter (statuses as of 09/14/2022) [facility] Narrative* Problem Noted Date Resolved Date Trochanteric bursitis 03/14/2013 11/17/2017 BPH (benign prostatic hyperplasia) 07/26/2012 11/17/2017 Elevated prostate specific antigen (PSA) 012 11/17/2017 Hypertension 06/22/2011 12/08/2020 documented as of this encounter (statuses as of 09/16/2022) [facility]arrative* Problem Noted Date Resolved Date Trochanteric bursitis 03/14/2013 11/17/2017 BPH (benign prostatic hyperplasia) 07/26/2012 11/17/2017 Elevated prostate specific antigen (PSA) 012 11/17/2017 Hypertension 06/22/2011 12/08/2020 documented as of this encounter (statuses as of 09/20/2022) [facility]ative* Problem Noted Date Resolved Date Trochanteric bursitis 03/14/2013 11/17/2017 BPH (benign prostatic hyperplasia) 07/26/2012 11/17/2017 Elevated prostate specific antigen (PSA) 012 11/17/2017 Hypertension 06/22/2011 12/08/2020 documented as of this encounter (statuses as of 09/23/2022) [facility] Narrative* Problem Noted Date Resolved Date Trochanteric bursitis 03/14/2013 11/17/2017 BPH (benign prostatic hyperplasia) 07/26/2012 11/17/2017 Elevated prostate specific antigen (PSA) 012 11/17/2017 Hypertension 06/22/2011 12/08/2020 documented as of this encounter (statuses as of 09/28/2022) [facility] N[facility]ative* Problem Noted Date Resolved Date Trochanteric bursitis 03/14/2013 11/17/2017 BPH (benign prostatic hyperplasia) 07/26/2012 11/17/2017 Elevated prostate specific antigen (PSA) 2 012 11/17/2017 Hypertension 06/22/2011 12/08/2020 documented as of this encounter (statuses as of 09/30/2022) [facility] N[facility]ative* Problem Noted Date Resolved Date Trochanteric bursitis 03/14/2013 11/17/2017 BPH (benign prostatic hyperplasia) 07/26/2012 11/17/2017 Elevated prostate specific antigen (PSA) 012 11/17/2017 Hypertension 06/22/2011 12/08/2020 documented as of this encounter (statuses as of 09/30/2022) [facility] Narrative* Problem Noted Date Resolved Date Trochanteric bursitis 03/14/2013 11/17/2017 BPH (benign prostatic hyperplasia) 07/26/2012 11/17/2017 Elevated prostate specific antigen (PSA) 012 11/17/2017 Hypertension 06/22/2011 12/08/2020 documented as of this encounter (statuses as of 10/04/2022) [facility]arrative* Problem Noted Date Resolved Date Trochanteric bursitis 03/14/2013 11/17/2017 BPH (benign prostatic hyperplasia) 07/26/2012 11/17/2017 Elevated prostate specific antigen (PSA) 012 11/17/2017 Hypertension 06/22/2011 12/08/2020 documented as of this encounter (statuses as of 10/06/2022) [facility] Narrative* Problem Noted Date Resolved Date Trochanteric bursitis 03/14/2013 11/17/2017 BPH (benign prostatic hyperplasia) 07/26/2012 11/17/2017 Elevated prostate specific antigen (PSA) 012 11/17/2017 Hypertension 06/22/2011 12/08/2020 documented as of this encounter (statuses as of 10/12/2022) [facility]* Problem Noted Date Resolved Date Trochanteric bursitis 03/14/2013 11/17/2017 BPH (benign prostatic hyperplasia) 07/26/2012 11/17/2017 Elevated prostate specific antigen (PSA) 012 11/17/2017 Hypertension 06/22/2011 12/08/2020 documented as of this encounter (statuses as of 10/14/2022) [facility]arrative* Problem Noted Date Resolved Date Trochanteric bursitis 03/14/2013 11/17/2017 BPH (benign prostatic hyperplasia) 07/26/2012 11/17/2017 Elevated prostate specific antigen (PSA) 012 11/17/2017 Hypertension 06/22/2011 12/08/2020 documented as of this encounter (statuses as of 10/18/2022) [address]18-2013 History of Past illness Narrative* Problem Noted Date Resolved Date Trochanteric bursitis 03/14/2013 11/17/2017 BPH (benign prostatic hyperplasia) 07/26/2012 11/17/2017 Elevated prostate specific antigen (PSA) 012 11/17/2017 Hypertension 06/22/2011 12/08/2020 documented as of this encounter (statuses as of 10/19/2022) [facility] Narrative* Problem Noted Date Resolved Date Trochanteric bursitis 03/14/2013 11/17/2017 BPH (benign prostatic hyperplasia) 07/26/2012 11/17/2017 Elevated prostate specific antigen (PSA) 012 11/17/2017 Hypertension 06/22/2011 12/08/2020 documented as of this encounter (statuses as of 10/20/2022) [facility] Narrative* Problem Noted Date Resolved Date Trochanteric bursitis 03/14/2013 11/17/2017 BPH (benign prostatic hyperplasia) 07/26/2012 11/17/2017 Elevated prostate specific antigen (PSA) 012 11/17/2017 Hypertension 06/22/2011 12/08/2020 documented as of this encounter (statuses as of 10/21/2022) [facility] Narrative* Problem Noted Date Resolved Date Trochanteric bursitis 03/14/2013 11/17/2017 BPH (benign prostatic hyperplasia) 07/26/2012 11/17/2017 Elevated prostate specific antigen (PSA) 012 11/17/2017 Hypertension 06/22/2011 12/08/2020 documented as of this encounter (statuses as of 10/22/2022) [facility] Narrative* Problem Noted Date Resolved Date Trochanteric bursitis 03/14/2013 11/17/2017 BPH (benign prostatic hyperplasia) 07/26/2012 11/17/2017 Elevated prostate specific antigen (PSA) 2 012 11/17/2017 Hypertension 06/22/2011 12/08/2020 documented as of this encounter (statuses as of 10/25/2022) [address]-2013 History of Past illness Narrative* Problem Noted Date Resolved Date Trochanteric bursitis 03/14/2013 11/17/2017 BPH (benign prostatic hyperplasia) 07/26/2012 11/17/2017 Elevated prostate specific antigen (PSA) 012 11/17/2017 Hypertension 06/22/2011 12/08/2020 documented as of this encounter (statuses as of 10/25/2022) [facility] Narrative* Problem Noted Date Resolved Date Trochanteric bursitis 03/14/2013 11/17/2017 BPH (benign prostatic hyperplasia) 07/26/2012 11/17/2017 Elevated prostate specific antigen (PSA) 012 11/17/2017 Hypertension 06/22/2011 12/08/2020 documented as of this encounter (statuses as of 10/28/2022) [facility] Narrative* Problem Noted Date Resolved Date Trochanteric bursitis 03/14/2013 11/17/2017 BPH (benign prostatic hyperplasia) 07/26/2012 11/17/2017 Elevated prostate specific antigen (PSA) 2 012 11/17/2017 Hypertension 06/22/2011 12/08/2020 documented as of this encounter (statuses as of 11/01/2022) [facility] Narrative* Problem Noted Date Resolved Date Trochanteric bursitis 03/14/2013 11/17/2017 BPH (benign prostatic hyperplasia) 07/26/2012 11/17/2017 Elevated prostate specific antigen (PSA) 2 012 11/17/2017 Hypertension 06/22/2011 12/08/2020 documented as of this encounter (statuses as of 11/02/2022) [facility]arrative* Problem Noted Date Resolved Date Trochanteric bursitis 03/14/2013 11/17/2017 BPH (benign prostatic hyperplasia) 07/26/2012 11/17/2017 Elevated prostate specific antigen (PSA) 012 11/17/2017 Hypertension 06/22/2011 12/08/2020 documented as of this encounter (statuses as of 11/22/2022) [address]-2013 History of Past illness Narrative* Problem Noted Date Resolved Date Trochanteric bursitis 03/14/2013 11/17/2017 BPH (benign prostatic hyperplasia) 07/26/2012 11/17/2017 Elevated prostate specific antigen (PSA) 012 11/17/2017 Hypertension 06/22/2011 12/08/2020 documented as of this encounter (statuses as of 11/29/2022) [facility]arrative* Problem Noted Date Resolved Date Trochanteric bursitis 03/14/2013 11/17/2017 BPH (benign prostatic hyperplasia) 07/26/2012 11/17/2017 Elevated prostate specific antigen (PSA) 012 11/17/2017 Hypertension 06/22/2011 12/08/2020 documented as of this encounter (statuses as of 11/30/2022) [facility]arrative* Problem Noted Date Resolved Date Trochanteric bursitis 03/14/2013 11/17/2017 BPH (benign prostatic hyperplasia) 07/26/2012 11/17/2017 Elevated prostate specific antigen (PSA) 012 11/17/2017 Hypertension 06/22/2011 12/08/2020 documented as of this encounter (statuses as of 11/30/2022) [facility]* Problem Noted Date Resolved Date Trochanteric bursitis 03/14/2013 11/17/2017 BPH (benign prostatic hyperplasia) 07/26/2012 11/17/2017 Elevated prostate specific antigen (PSA) 012 11/17/2017 Hypertension 06/22/2011 12/08/2020 documented as of this encounter (statuses as of 12/19/2022) [facility]arrative* Problem Noted Date Diagnosed Date Resolved Date Trochanteric bursitis 03/14/20132017 BPH (benign prostatic hyperplasia) 07/26/2012 11/17/2017 Elevated prostate specific antigen (PSA) 07/26/2012 11/17/2017 Hypertension 06/22/2011 12/08/2020 documented as of this encounter (statuses as of 03/06/2023) [address]-2013 History of Past illness Narrative* Problem Noted Date Diagnosed Date Resolved Date Trochanteric bursitis 03/14/20132017 BPH (benign prostatic hyperplasia) 07/26/2012 11/17/2017 Elevated prostate specific antigen (PSA) 07/26/2012 11/17/2017 Hypertension 06/22/2011 12/08/2020 documented as of this encounter (statuses as of 06/21/2023) [address]-2013 History of Past illness Narrative* Problem Noted Date Diagnosed Date Resolved Date Trochanteric bursitis 03/14/20132017 BPH (benign prostatic hyperplasia) 07/26/2012 11/17/2017 Elevated prostate specific antigen (PSA) 07/26/2012 11/17/2017 Hypertension 06/22/2011 12/08/2020 documented as of this encounter (statuses as of 11/02/2023) [address]-2013 History of Past illness Narrative* Problem Noted Date Diagnosed Date Resolved Date Trochanteric bursitis 03/14/20132017 BPH (benign prostatic hyperplasia) 07/26/2012 11/17/2017 Elevated prostate specific antigen (PSA) 07/26/2012 11/17/2017 Hypertension 06/22/2011 12/08/2020 documented as of this encounter (statuses as of 11/06/2023) [address]2013 History of Past illness Narrative* Problem Noted Date Diagnosed Date Resolved Date Trochanteric bursitis 03/14/20132017 BPH (benign prostatic hyperplasia) 07/26/2012 11/17/2017 Elevated prostate specific antigen (PSA) 07/26/2012 11/17/2017 Hypertension 06/22/2011 12/08/2020 documented as of this encounter (statuses as of 11/09/2023) [facility] Onset Date Resolution Status Acute respiratory failure with hypoxia acute Pneumothorax acute [facility] Work Phone: Evaluation note* Diagnosis Onset Date Resolution Status Acute respiratory failure with hypoxia acute Pneumothorax acute Asthma exacerbation in COPD chronic [facility] Work Phone: Evaluation note* Diagnosis Hospital discharge follow-up- Primary Other follow-up examination Pneumothorax on left Other pneumothorax Mixed hyperlipidemia Essential hypertension Unspecified essential hypertension Weight loss Loss of weight Tobacco use disorder Severe protein-calorie malnutrition (HCC) Other severe protein-calorie malnutrition [facility]* Diagnosis Chronic hypoxemic respiratory failure (HCC)- Primary Chronic respiratory failure Pulmonary emphysema, unspecified emphysema type (HCC) Bullous emphysema (HCC) Emphysematous bleb Other pneumothorax Former tobacco use Personal history of tobacco use, presenting hazards to health documented [facility] this encounter [facility]* Diagnosis Pulmonary emphysema, unspecified emphysema type (HCC) Chronic hypoxemic respiratory failure (HCC) Chronic respiratory failure documented in this [facility]* Diagnosis Other pneumothorax documented [facility]* Diagnosis Chronic hypoxemic respiratory failure (HCC)- Primary Chronic respiratory failure Pulmonary emphysema, unspecified emphysema type (HCC) Bullous emphysema (HCC) Emphysematous bleb Other pneumothorax Chronic rhinitis Former tobacco use Personal history of tobacco use, presenting hazards to health documented in this encounter [facility]* Diagnosis Centrilobular emphysema (HCC)- Primary Other emphysema documented in this [facility]* Diagnosis Mixed hyperlipidemia- Primary Pulmonary emphysema, unspecified emphysema type (HCC) Pneumothorax on left Other pneumothorax Severe protein-calorie malnutrition (HCC) Other severe protein-calorie malnutrition Prostate cancer (HCC) Malignant neoplasm of prostate documented in this encounter [facility] noteNo assessment information availableW[facility] Work Phone: Evaluation note* Diagnosis Mixed hyperlipidemia- Primary Essential hypertension Unspecified essential hypertension Pulmonary emphysema, unspecified emphysema type (HCC) Prostate cancer (HCC) Malignant neoplasm of prostate Severe protein-calorie malnutrition (HCC) Other severe protein-calorie malnutrition Need for influenza vaccination Need for prophylactic vaccination and inoculation against influenza documented in this encounter [facility] note* Diagnosis Chronic hypoxemic respiratory failure (HCC) Chronic respiratory failure Pulmonary emphysema, unspecified emphysema type (HCC) documented in this [facility]* Diagnosis Chronic hypoxemic respiratory failure (HCC)- Primary Chronic respiratory failure documented in this encounter [facility] note* Diagnosis Mixed hyperlipidemia- Primary Essential hypertension Unspecified essential hypertension Pulmonary emphysema, unspecified emphysema type (HCC) Prostate cancer (HCC) Malignant neoplasm of prostate [facility] Low oxygen saturation- Primary Abnormal arterial blood gases [facility] Diagnosis Pulmonary emphysema, unspecified emphysema type (HCC)- Primary [facility] Diagnosis Pulmonary emphysema, unspecified emphysema type (HCC)- Primary [facility]* Diagnosis Pulmonary emphysema, unspecified emphysema type (HCC)- Primary Nocturnal hypoxia Hypoxemia History of pneumothorax Personal history of other diseases of respiratory system Chronic rhinitis Need for pneumococcal 20-valent conjugate vaccination Former smoker Personal history of tobacco use, presenting hazards to health Hypertension, unspecified type [facility] Diagnosis Other pneumothorax [facility]* Diagnosis Pulmonary emphysema, unspecified emphysema type (HCC) History of pneumothorax Personal history of other diseases of respiratory system [facility] Diagnosis Pulmonary emphysema, unspecified emphysema type (HCC)- Primary Abnormal CXR Other nonspecific abnormal finding of lung field History of pneumothorax Personal history of other diseases of respiratory system [facility]* Diagnosis Pulmonary emphysema, unspecified emphysema type (HCC) Abnormal CXR Other nonspecific abnormal finding of lung field History of pneumothorax Personal history of other diseases of respiratory system [facility] Diagnosis Abnormal CT of the chest- Primary Nonspecific (abnormal) findings on radiological and other examination of other intrathoracic organs [facility]* Diagnosis Medicare annual wellness visit, initial- Primary Routine general medical examination at a health care facility Trochanteric bursitis of left hip Enthesopathy of hip region Hyperlipidemia, unspecified hyperlipidemia type Need for vaccination Need for prophylactic vaccination and inoculation against unspecified single disease Prostate cancer (HCC) Malignant neoplasm of prostate [facility]* Diagnosis Mixed hyperlipidemia [facility]* Diagnosis Abnormal CT of the chest Nonspecific (abnormal) findings on radiological and other examination of other intrathoracic organs documented [facility]* Diagnosis Mixed hyperlipidemia [facility] Diagnosis Trochanteric bursitis of left hip Enthesopathy of hip region [facility]* Diagnosis Left hip pain- Primary Pain in joint, pelvic region and thigh Anemia, unspecified type Chronic hypoxemic respiratory failure (HCC) Chronic respiratory failure Pulmonary emphysema, unspecified emphysema type (HCC) Left hip pain Pain in joint, pelvic region and thigh documented in this encounter [facility]* Diagnosis Left hip pain Pain in joint, pelvic region and thigh documented in this [facility]* Diagnosis Pulmonary emphysema, unspecified emphysema type (HCC) documented in this [facility]* Diagnosis Pulmonary emphysema, unspecified emphysema type (HCC) documented in this [facility]* Diagnosis Pulmonary emphysema, unspecified emphysema type (HCC)- Primary Nocturnal hypoxia Hypoxemia History of pneumothorax Personal history of other diseases of respiratory system Former smoker Personal history of tobacco use, presenting hazards to health Chronic rhinitis documented in this [facility]* Diagnosis Trochanteric bursitis of left hip- Primary Enthesopathy of hip region Left hip pain Pain in joint, pelvic region and thigh Primary osteoarthritis of left hip Primary localized osteoarthrosis, pelvic region and thigh documented in this [facility]* Diagnosis Mixed hyperlipidemia Mixed hyperlipidemia- Primary Pulmonary emphysema, unspecified emphysema type (HCC) documented in this encounter [facility] note* Diagnosis Primary osteoarthritis of left hip- Primary Primary localized osteoarthrosis, pelvic region and thigh Mixed hyperlipidemia- Primary Pulmonary emphysema, unspecified emphysema type (HCC) documented in this encounter [facility] note* Diagnosis Primary osteoarthritis of left hip- Primary Primary localized osteoarthrosis, pelvic region and thigh Mixed hyperlipidemia- Primary Pulmonary emphysema, unspecified emphysema type (HCC) Primary osteoarthritis of left hip Primary localized osteoarthrosis, pelvic region and thigh documented in this encounter [facility] note* Diagnosis Primary osteoarthritis of left hip- Primary Primary localized osteoarthrosis, pelvic region and thigh Mixed hyperlipidemia- Primary Pulmonary emphysema, unspecified emphysema type (HCC) Primary osteoarthritis of left hip Primary localized osteoarthrosis, pelvic region and thigh documented in this encounter [facility] note* Diagnosis Mixed hyperlipidemia- Primary Pulmonary emphysema, unspecified emphysema type (HCC) Anemia, unspecified type Left hip pain Pain in joint, pelvic region and thigh Hyperlipidemia, unspecified hyperlipidemia type Primary osteoarthritis of left hip Primary localized osteoarthrosis, pelvic region and thigh documented in this encounter [facility] note* Diagnosis Onset Date Resolution Status Admit Date Blood in stool acute March 03, 2025 2:59pm [facility] Work Phone: History and physical note Author Kate Castillo [facility] Note Date/Time March 03, 2025 3:07p m [facility] Medical Records Department [address] [place] [address] H&P Exam - Hospitalist 03/03/25 1458 MR#: [id number] Acct: [id number] Name: DIMITRI PAINTER Rep #:[id number] : 1945 79 From: Kate Castillo MD PCP: Dr. Otilia Lopez MD Status:RE G ER Location: ED HPI - General General Date of Admission: 03/03/25 Date of Service: 03/03/25 Chief Complaint: Rectal bleeding HPI Narrative DIMITRI PAINTER, is a 79-year-old male history of asthma and prostate cancer status post radical prostatectomy who presented to [facility] ED 03/03/2025 with concern for GI bleed. In the ED temp 98.3, pulse rate 96 with blood pressure 102/79. Respiratory rate 18 and pulse ox 100% on room air. CBC with white blood cell count of 6.2 and hemoglobin of 7.0 down from seems to be baseline of around 9-10. CMP with a BUN of 30 and a normal creatinine of 0.73. FOBT positive. CTA of abdomen and pelvis with no acute process. Hospitalist contacted for admission for GI bleed. Patient evaluated at bedside with significant other. Patient reports around 4 days ago he had some black diarrheaand it initially resolved and he had none Monday and Monday but then he began having multiple episodes of black stools starting yesterday and this morning there were dark congealed clots and when the toilet was flushed there would be bright red. Had 1 episode when he was in the waiting room with a mild to moderate amount but none since he has been back. Has been having some indigestion and somewhat poor p.o. intake and generalized weakness. Not necessarily having abdominal pain. No fevers or chills, has a lot of nasal congestion and has been having some headaches but he feels this is independent. Also has noticed some more shortness of breath when he has been getting up and moving around but notes that his oxygen saturation has been okay at home [facility] Medical History Pneumothorax Asthma exacerbation in COPD Prostate CA COPD (chronic obstructive pulmonary disease) Glaucoma High cholesterol Home Medications ?Medication ?Instructions ?Recorded ?Last Taken ?Type artificial tears(hypromellose) 0.3 1 drp EACH EYE BID DRY EYE 08/25/22 03/02/25 History % eye drops aspirin 81 mg tablet,delayed 81 mg PO DAILY HEART HEAL TH 08/25/22 02/26/25 History release lovastatin 40 mg tablet 40 mg PO DAILY CHOLESTEROL 1 03/02/25 History timolol maleate 0.5 % eye drops 1 drp EACH EYE BID GLU COMA 08/25/22 03/03/25 History albuterol sulfate 90 mcg/actuation 2 puff inhalation Q 6H PRN Dyspnea 12/13/22 01/05/24 History aerosol inhaler docusate sodium 100 mg capsule 100 mg PO QHS 12/13/22 03/02/25 History (Colace) fluticasone fur. 200 mcg-umeclid 1 inh inhalation 0 12/13/22 03/02/25 History 62.5 mcg-vilant 25 mcg inhalat.powder (Trelegy Ellipta) fluticasone propionate 50 1 spray intranasal DAILY PRN nasal 12/13/22 01/05/24 History mcg/actuation nasal congestion spray,suspension guaifenesin 600 mg tablet, 600 mg PO BID 12/13/22 07/02/19 History extended release 12 hr (Mucinex) acetaminophen 500 mg tablet 500 - 1,000 mg PO Q6H PRN pain 10/14/24 Unknown History loratadine 10 mg tablet (Allergy 10 mg PO DAILY 03/02/25 History Relief (loratadine)) vitamins A,C,O-wwvf-qnkoig 2,148 2 tab PO BID 10/14/24 03/02/25 History mcg-113 mg-45 mg-17.4 mg tablet (Eye Multivitamin) Allergy/AdvReac Type Severity Reaction Status Date / Time propofol Allergy Severe Other Verified 03/03/25 11:23 Family History Other COPD (chronic obstructive pulmonary disease) Heart disease Hypertension Surgical History H/O radical prostatectomy Social History household members: family Smoking Status: Former smoker alcohol intake: former ROS ROS Narrative General: Denies fever/chills HENT: Some nasal congestion and draining and headache,, denies sore throat EYES: Denies changes in vision Resp: Denies cough, has been having some shortness of breath mostly on exertion Cardiac: Denies chest pain GI: Some nausea and indigestion, diarrhea with clots and black watery stool : Denies changes in urination Extremity: Denies swelling MSK some generalized weakness Neuro: Denies any numbness/tingling Heme: Denies any bleeding or bruising Skin: Some chronic changes on shins Psychiatric: No complaints voiced Vital Signs Vital Signs Vital Signs: 03/03/25 11:22 03/03/25 13:21 03/03/25 14:15 Temperature 98.3 F 98.8 F Temperature Source Oral Oral Pulse Rate 96 87 89 Respiratory Rate 18 18 21 H Blood Pressure 102/79 112/74 115/75 Blood Pressure Mean 86 86 88 Blood Pressure Source Monitor Pulse Ox 100 100 99 Oxygen Delivery Method Room Air 03/03/25 14:33 Temperature 99.2 F H Temperature Source Oral Pulse Rate 88 Respiratory Rate 19 H Blood Pressure 117/69 Blood Pressure Mean 85 Blood Pressure Source Monitor Pulse Ox 99 Oxygen Delivery Method Room Air Weight Weight: 57.6 kg Body Mass Index (BMI) 19.8 Physical Exam Narrative General: Alert, oriented, no apparent distress HEENT: Atraumatic, normocephalic Eyes: Anicteric, normal conjunctiva, extraocular movements grossly intact Neck: Supple Respiratory: Clear to auscultation bilaterally, normal respiratory effort Cardiovascular: Regular rate and rhythm GI: Soft, nontender, nondistended Extremities: No edema Musculoskeletal: Moving all extremities Neuro: No overt focal neurological deficits Skin: No rashes appreciated, does have some chronic appearing changes lower extremities Psych: Cooperative Results Lab / Micro Data 03/03/25 11:30 03/03/25 11:30 Labs: Laboratory Results - last 24 hr 03/03/25 11:30: WBC 6.2, RBC 2.28 L, Hgb 7.0 L, Hct 22.4 L, MCV 98.2 H, MCH 30.7, MCHC 31.3 L, RDW Std Deviation 63.5 H, RDW Coeff of Samira 17.6 H, Plt Count 171, MPV 9.7, Immature Gran % (Auto) 0.800, Neut % (Auto) 77.7 H, Lymph % (Auto)12.4 L, [place] % (Auto) 7.3, Eos % (Auto) 1.6, Baso % (Auto) 0.2, Absolute Neuts (auto) 4.8, Absolute Lymphs (auto) 0.76 L, Nucleated RBC % 0, Sodium 137, Potassium 4.7, Chloride 106, Carbon Dioxide 21.7, Anion Gap 9, BUN 30 H, Creatinine 0.73, Est GFR (MDRD) Non- Af 92, BUN/Creatinine Ratio 41.4 H, Glucose 94, Calcium 8.6, Total Bilirubin 0.41, AST 26, ALT 14, Alkaline Phosphatase 54, Total Protein 5.8 L, Albumin 3.5, Globulin 2.2, Albumin/Globulin Ratio 1.6, Blood Type B POSITIVE, Antibody Screen NEGATIVE, Crossmatch See Detail Micro: Microbiology 03/03/25 13:21 Stool Stool Occult Blood (JAE) - Final Occult Blood Positive Imaging Radiology Impression Abdomen/Pelvis CTA 03/03/25 11:40 IMPRESSION: Sigmoid diverticulosis. Status post prostatectomy. Stable hepatic cysts. Small gallstones. 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 [facility] & Plan Assessment/Plan (1) Blood in stool: PLAN: Plan # Concern for GI bleed - Elevated BUN hemoglobin of 7 down from baseline of around 9-10 and patient hasbeen having indigestion and black stool with clots -Suspect upper GI bleed -Hemoccult positive - Patient typed and crossed and receiving 1 unit - Continue PPI drip -N.p.o. midnight - Trend H&H - GI consult -Hold aspirin given concern for acute bleed #Hx asthma/COPD -Continue home inhalers -Incentive spirometer # History of prostate cancer - With radical prostatectomy - Noted # Hyperlipidemia -Continue home statin # History of glaucoma -Continue eyedrops as able #DVT ppx: SCDs Kate Castillo MD Charges/Coding Visit Charges Inpatient E&M: 71019 Init Hosp L2 03/03/25 1507 <Electronically signed by Kate Castillo MD> Cosigner Signature (if applicable): CC: Dr. Otilia Lopez MD; Dr. Kate Castillo MD~ Signed [facility] Work Phone: Hospital Discharge instructions Additional Instructions Exacerbation of your COPD. Chest x-ray shows no obvious pneumonia or collapsed lung. Use your inhaler as needed. Talk to your primary care physician and/or member services representative about possibly getting a nebulizer for home we will give yourself aerosol treatments with that. The antibiotic Zithromax 1 pill a day starting tomorrow. That will be for 4 more days. Prednisone the steroid starting tomorrow for 7 days. Follow-up your primary care physician to ensure you are improving return if worse.[facility] Work Phone: Patient's home Plan of care note* Visit Details Visit Type -PT EVAL Discipline -Physical Therapy Problems Problem Description Start Date Status Goals Interve ntions Medication Education Disciplines: Skilled Services 09/08/2022 Active 1 goal linked to scheduled/document ed intervention 1 goal intervention scheduled/documente d in this visit Sepsis Disciplines: Skilled Services 09/08/2022 Active 1 goal linked to scheduled/document ed intervention 1 goal intervention scheduled/documente d in this visit PT Referral Disciplines: Skilled Services 09/08/2022 Active 1 goal linked to scheduled/document ed intervention 1 goal intervention scheduled/documente d in this visit Physician Specific Parameters Disciplines: Skilled Services 09/08/2022 Active 1 goal linked to scheduled/document ed intervention 1 goal intervention scheduled/documente d in this visit Risk for Falls Disciplines: Skilled Services 09/08/2022 Active 1 goal linked to scheduled/document ed intervention 1 goal intervention scheduled/documente d in this visit Pain Disciplines: Skilled Services 09/08/2022 Active 1 goal linked to scheduled/document ed intervention 1 goal intervention scheduled/documente d in this visit Oxygen Disciplines: Skilled Services 09/08/2022 Active 1 goal linked to scheduled/document ed intervention 1 goal intervention scheduled/documente d in this visit PT Learning Assessment Disciplines: PT 09/13/2022 Active 1 goal linked to scheduled/document ed intervention 1 goal intervention scheduled/documente d in this visit PT Pulmonary Disease Disciplines: PT 09/13/2022 Active 1 goal linked to scheduled/document ed intervention 1 goal intervention scheduled/documente d in this visit Goals Goal Associated Problem Outcome Goal Met? Visit Notes Patient/caregiver will demonstrate ability to obtain, store, identify and administer ordered medications, keep accurate medication list in home, and adhere to medication schedule Description: Patient/caregiver will demonstrate ability to obtain, store, identify and administer ordered medications, keep accurate medication list in home, and adhere to medication schedule by 11/06/22. Medication Education No Patient/caregiver will be able to identify and report symptoms of sepsis Description: Patient/caregiver will be able to identify signs/symptoms of sepsis infection and will verbalize actions to take if suspected by 11/06/22. Sepsis No Patient will be referred to additional discipline as needed PT Referral No Patient to maintain parameters within physician-specified ranges throughout certification period Physician Specific Parameters No Manage Risk for falls Description: Patient/caregiver will verbalize knowledge of individualized fall prevention strategies by 11/06/22. Risk for Falls No Manage Pain Description: Patient/caregiver will verbalize knowledge and understanding of appropriate techniques to control pain, including non-pharmacological techniques. Patient will verbalize or demonstrate an acceptable level of pain as evidenced by a pain score of 0/10 and improvement in ability to perform activities of daily living to be achieved by 11/06/22. Pain No Manage oxygen Description: Patient/caregiver will use oxygen safely and effectively in home by verbalizing and demonstrating oxygen safety by 11/06/22. Oxygen No Demonstrate understanding of education Description: Patient and/or caregiver will understand educational instruction to be achieved by 10/01/22.. PT Learning Assessment No Manage Primary Pulmonary Disease Description: Improve patient and/or caregiver understanding of primary pulmonary disease as evidenced by patient and/or caregiver able to verbalize, demonstrate, and teach back instruction, to be achieved by 10/01/22.. PT Pulmonary Disease No Interventions Intervention Associated Problem/Goal Status Variance Visit Notes Medication Education Description: Evaluate/instruct patient/caregiver on obtaining, storing, identifying and administering ordered medications as well as keeping accurate medication list in the home and adhereing to medication schedule Problem:Medication Education Goal:Patient/caregiv er will demonstrate ability to obtain, store, identify and administer ordered medications, keep accurate medication list in home, and adhere to medication schedule Completed Patient instructed on importance of keeping accurate medication list in home and adhering to medication schedule. Risk of Sepsis Description: Patient is at risk for sepsis. Monitor closely for s/s of sepsis. Problem:Sepsis Goal:Patient/caregiv er will be able to identify and report symptoms of sepsis Completed PT evaluation and treatment Description: Evaluate and treat for the assessment of functional deficits and establishment of appropriate interventions and education, including recommendations for functional mobility training, balance training for fall reduction, and strengthening. Problem:PT Referral Goal:Patient will be referred to additional discipline as needed Completed SPO2 Description: Notify Dr. Otilia Lopez MD if pulse ox is <92% at rest. Problem:Physician Specific Parameters Goal:Patient to maintain parameters within physician-specified ranges throughout certification period Completed Instruct on individual fall risk factors and strategies to prevent falls and injuries caused by falls. Problem:Risk for Falls Goal:Manage Risk for falls Completed PT: Patient instructed on Eliminating Environmental Hazards: Keep pathways clear, Keep pets out of pathways, Remove unsafe rugs and Move furniture from pathways. Safe management of O2 tubing Instruct on pain and instruct on strategies to control pain Problem:Pain Goal:Manage Pain Completed patient instructed on techniques to control pain including Pharmacological measures and Non-Pharmacological measures; rest. Instruct on fire safety and safe and effective use of oxygen in the home Problem:Oxygen Goal:Manage oxygen Completed patient instructed on: oxygen safety as outlined in Home Care Patient Handbook patient demonstrate compliance with safety recommendations. Instruct and educate on knowledge deficits Problem:PT Learning Assessment Goal:Demonstrate understanding of education Completed patient verbalize and/or demonstrate understanding of physical therapy education including oxygen safety, fall prevention strategies, home safety, functional activity and home exercise program. Education methods include: verbal cues. Further education required to improve knowledge and compliance with oxygen safety, fall prevention strategies, home safety, functional activity and home exercise program. Instruct on signs, symptoms, and management of primary pulmonary disease Problem:PT Pulmonary Disease Goal:Manage Primary Pulmonary Disease Completed patient instructed on use of zone sheet and use of RPE scale. [facility] Visit Details Visit Type -PT ROUTINE Discipline -Physical Therapy Problems Problem Description Start Date Status Goals Interve ntions Sepsis Disciplines: Skilled Services 09/08/2022 Active 1 goal linked to scheduled/documen quinn intervention 1 goal intervention scheduled/document ed in this visit PT Referral Disciplines: Skilled Services 09/08/2022 Resolved on 09/16/2022 1 goal linked to scheduled/documen quinn intervention Physician Specific Parameters Disciplines: Skilled Services 09/08/2022 Active 1 goal linked to scheduled/documen quinn intervention 1 goal intervention scheduled/document ed in this visit Risk for Falls Disciplines: Skilled Services 09/08/2022 Active 1 goal linked to scheduled/documen quinn intervention 1 goal intervention scheduled/document ed in this visit Pain Disciplines: Skilled Services 09/08/2022 Active 1 goal linked to scheduled/documen quinn intervention 1 goal intervention scheduled/document ed in this visit PT Impaired Aerobic Capacity Disciplines: PT 09/13/2022 Active 1 goal linked to scheduled/documen quinn intervention 1 goal intervention scheduled/document ed in this visit PT Impaired muscle performance and/or ROM Disciplines: PT 09/13/2022 Active 1 goal linked to scheduled/documen quinn intervention 1 goal intervention scheduled/document ed in this visit PT Impaired gait Disciplines: PT 09/13/2022 Active 1 goal linked to scheduled/documen quinn intervention 1 goal intervention scheduled/document ed in this visit PT Learning Assessment Disciplines: PT 09/13/2022 Active 1 goal linked to scheduled/documen quinn intervention 1 goal intervention scheduled/document ed in this visit PT Pulmonary Disease Disciplines: PT 09/13/2022 Active 1 goal linked to scheduled/documen quinn intervention 1 goal intervention scheduled/document ed in this visit Goals Goal Associated Problem Outcome Goal Met? Visit Notes Patient/caregiver will be able to identify and report symptoms of sepsis Description: Patient/caregiver will be able to identify signs/symptoms of sepsis infection and will verbalize actions to take if suspected by 11/06/22. Sepsis No Patient will be referred to additional discipline as needed PT Referral Completed Yes Patient to maintain parameters within physician-specified ranges throughout certification period Physician Specific Parameters No Manage Risk for falls Description: Patient/caregiver will verbalize knowledge of individualized fall prevention strategies by 11/06/22. Risk for Falls No Manage Pain Description: Patient/caregiver will verbalize knowledge and understanding of appropriate techniques to control pain, including non-pharmacological techniques. Patient will verbalize or demonstrate an acceptable level of pain as evidenced by a pain score of 0/10 and improvement in ability to perform activities of daily living to be achieved by 11/06/22. Pain No Improved Aerobic Capacity Description: LTG: Patient will demonstrate improved aerobic capacity to meet functional goals as evidenced by the abilit yto complete a 2 Minute Walk Test to be achieved by 10/01/22. LTG: Patient will demonstrate improved aerobic capacity to meet functional goals as evidenced by Rate of Percieved Exertion (RPE) of 3/10 during walking activity, to be achieved by 10/01/22. PT Impaired Aerobic Capacity No Improved Muscle Performance and/or ROM Description: LTG: Patient will demonstrate improved muscle performance to meet functional goals as evidenced by ability to tolerate 10 min of standing activity, to be achieved by 10/01/22.. STG: Patient and/or caregiver will verbalize/demonstrate independence with home exercise program, to improve functional mobility, to be achieved by 09/17/22. PT Impaired muscle performance and/or ROM No Improved Gait Description: LTG: Patient will demonstrate improved gait ability as evidenced by ambulation 300 feet with no device independently, to return to safe household and community ambulation, in order to return to [facility], to be achieved by 10/01/22.. PT Impaired gait No Demonstrate understanding of education Description: Patient and/or caregiver will understand educational instruction to be achieved by 10/01/22.. PT Learning Assessment No Manage Primary Pulmonary Disease Description: Improve patient and/or caregiver understanding of primary pulmonary disease as evidenced by patient and/or caregiver able to verbalize, demonstrate, and teach back instruction, to be achieved by 10/01/22.. PT Pulmonary Disease No Interventions Intervention Associated Problem/Goal Status Variance Visit Notes Risk of Sepsis Description: Patient is at risk for sepsis. Monitor closely for s/s of sepsis. Problem:Sepsis Goal:Patient/caregive r will be able to identify and report symptoms of sepsis Completed SPO2 Description: Notify Dr. Otilia Lopez MD if pulse ox is <92% at rest. Problem:Physician Specific Parameters Goal:Patient to maintain parameters within physician-specified ranges throughout certification period Completed Instruct on individual fall risk factors and strategies to prevent falls and injuries caused by falls. Problem:Risk for Falls Goal:Manage Risk for falls Completed PT: Patient instructed on Eliminating Environmental Hazards: Keep pathways clear, Keep pets out of pathways, Remove unsafe rugs, Move furniture from pathways and safe management of O2 tubing Managing Pain Instruct on pain and instruct on strategies to control pain Problem:Pain Goal:Manage Pain Completed patient instructed on techniques to control pain including Non-Pharmacological measures; positioning/elevation. Physical Therapy Aerobic Capacity Training Problem:PT Impaired Aerobic Capacity Goal:Improved Aerobic Capacity Completed patient instructed on utilization of the Rate of Percieved Exertion (RPE) scale, to not exceed 3-6/10 indicating moderate to heavy intensity of activity. Developed, implemented, and instructed patient on physical therapy interventions completing 3 min x 1 , 2 min x 1 minutes of continuous, paced, physiologically monitored and biking activity. with 2 lpm on PSO@ HR 92 98 after biking 3 min 97 96 after seated rest 97 94after biking 2 min Physical Therapy Therapeutic Exercises Problem:PT Impaired muscle performance and/or ROM Goal:Improved Muscle Performance and/or ROM Completed patient instructed on strengthening exercises including SEATED: FAQ, HIP FLEX, AP, HIP ABD X15 with verbal cues for technique /reps . patient instructed to perform home exercise program daily which included hourly abulation . Physical Therapy Gait Training Problem:PT Impaired gait Goal:Improved Gait Completed Gait training and instruction to patient on safe ambulation with no device for 75 feet with supervision, with verbal cues for corrections of gait deviations including pacing . pt ambulates without O2 on due to the layout of his home . after 2 min of walkig PSO@ was 90 HR 100 Instruct and educate on knowledge deficits Problem:PT Learning Assessment Goal:Demonstrate understanding of education Completed patient verbalize and/or demonstrate understanding of physical therapy education including, pulmonary disease management, fall prevention strategies, home safety, functional activity and home exercise program. Education methods include: verbal cues. Further education required to improve knowledge and compliance with pulmonary disease management, fall prevention strategies and home safety. Instruct on signs, symptoms, and management of primary pulmonary disease Problem:PT Pulmonary Disease Goal:Manage Primary Pulmonary Disease Completed patient instructed on energy conservation, exercise and activity guidelines and instructed on when to call provider. [facility] Visit Details Visit Type -SN ROUTINE Discipline -[facility] Problems Problem Description Start Date Status Goals Interve ntions Medication Education Disciplines: Skilled Services 09/08/2022 Active 1 goal linked to scheduled/document ed intervention 1 goal intervention scheduled/document ed in this visit Sepsis Disciplines: Skilled Services 09/08/2022 Active 1 goal linked to scheduled/document ed intervention 1 goal intervention scheduled/document ed in this visit Physician Specific Parameters Disciplines: Skilled Services 09/08/2022 Active 1 goal linked to scheduled/document ed intervention 1 goal intervention scheduled/document ed in this visit Risk for Falls Disciplines: Skilled Services 09/08/2022 Active 1 goal linked to scheduled/document ed intervention 1 goal intervention scheduled/document ed in this visit Oxygen Disciplines: Skilled Services 09/08/2022 Active 1 goal linked to scheduled/document ed intervention SN Respiratory Disease Disciplines: SN 09/08/2022 Active 1 goal linked to scheduled/document ed intervention 1 goal intervention scheduled/document ed in this visit SN Learning Assessment Disciplines: SN 09/08/2022 Active 1 goal linked to scheduled/document ed intervention 1 goal intervention scheduled/document ed in this visit Goals Goal Associated Problem Outcome Goal Met? Visit Notes Patient/caregiver will demonstrate ability to obtain, store, identify and administer ordered medications, keep accurate medication list in home, and adhere to medication schedule Description: Patient/caregiver will demonstrate ability to obtain, store, identify and administer ordered medications, keep accurate medication list in home, and adhere to medication schedule by 11/06/22. Medication Education In Progress No Patient/caregiver will be able to identify and report symptoms of sepsis Description: Patient/caregiver will be able to identify signs/symptoms of sepsis infection and will verbalize actions to take if suspected by 11/06/22. Sepsis In Progress No Patient to maintain parameters within physician-specified ranges throughout certification period Physician Specific Parameters In Progress No Manage Risk for falls Description: Patient/caregiver will verbalize knowledge of individualized fall prevention strategies by 11/06/22. Risk for Falls In Progress No Manage oxygen Description: Patient/caregiver will use oxygen safely and effectively in home by verbalizing and demonstrating oxygen safety by 11/06/22. Oxygen In Progress No Improved management of respiratory condition Description: Improve respiratory management as evidenced by patient/caregiver's ability to teach back strategies for improving respiratory status by 11/06/22. SN Respiratory Disease In Progress No Demonstrate understanding of education Description: Patient and/or caregiver will verbalize understanding of educational instruction provided throughout certification period. SN Learning Assessment In Progress No Interventions Intervention Associated Problem/Goal Status Variance Visit Notes Medication Education Description: Evaluate/instruct patient/caregiver on obtaining, storing, identifying and administering ordered medications as well as keeping accurate medication list in the home and adhereing to medication schedule Problem:Medication Education Goal:Patient/caregiv er will demonstrate ability to obtain, store, identify and administer ordered medications, keep accurate medication list in home, and adhere to medication schedule Completed Patient instructed on adhering to medication schedule. Risk of Sepsis Description: Patient is at risk for sepsis. Monitor closely for s/s of sepsis. Problem:Sepsis Goal:Patient/caregiv er will be able to identify and report symptoms of sepsis Completed SPO2 Description: Notify Dr. Otilia Lopez MD if pulse ox is <92% at rest. Problem:Physician Specific Parameters Goal:Patient to maintain parameters within physician-specified ranges throughout certification period Completed Instruct on individual fall risk factors and strategies to prevent falls and injuries caused by falls. Problem:Risk for Falls Goal:Manage Risk for falls Completed SN: Patient instructed on Eliminating Environmental Hazards: Keep pathways clear and manage oxygen tubing when ambulating Managing Impaired Functional Mobility: Caregiver to provide assist with: Steps and ADL/IADLs Instruct on respiratory disease process and management of condition Description: Patient has following respiratory diagnosis(es): pneumothorax Problem:SN Respiratory Disease Goal:Improved management of respiratory condition Completed patient assessed and reinforced on self monitoring & symptom reporting. Instruct and educate on knowledge deficits Problem:SN Learning Assessment Goal:Demonstrate understanding of education Completed patient verbalize and/or demonstrate understanding of nursing education completed today. Education methods include: verbal cues. Further education required to improve knowledge and compliance with fall prevention/home safety strategies, gastrointestinal care management, hematological care management, integumentary care management, medication management, nutrition, oxygen safety and pulmonary disease management. documented in this [facility] of care note* Visit Details Visit Type -ZIPPER SETTER ROUTINE Discipline -Physical Therapy Problems Problem Description Start Date Status Goals Interve ntions Medication Education Disciplines: Skilled Services 09/08/2022 Active 1 goal linked to scheduled/document ed intervention 1 goal intervention scheduled/document ed in this visit Sepsis Disciplines: Skilled Services 09/08/2022 Active 1 goal linked to scheduled/document ed intervention 1 goal intervention scheduled/document ed in this visit Physician Specific Parameters Disciplines: Skilled Services 09/08/2022 Active 1 goal linked to scheduled/document ed intervention 1 goal intervention scheduled/document ed in this visit Risk for Falls Disciplines: Skilled Services 09/08/2022 Active 1 goal linked to scheduled/document ed intervention 1 goal intervention scheduled/document ed in this visit Pain Disciplines: Skilled Services 09/08/2022 Active 1 goal linked to scheduled/document ed intervention 1 goal intervention scheduled/document ed in this visit Oxygen Disciplines: Skilled Services 09/08/2022 Active 1 goal linked to scheduled/document ed intervention 1 goal intervention scheduled/document ed in this visit Discharge Disciplines: Skilled Services 09/08/2022 Active 1 goal linked to scheduled/document ed intervention 1 goal intervention scheduled/document ed in this visit PT Impaired Aerobic Capacity Disciplines: PT 09/13/2022 Active 1 goal linked to scheduled/document ed intervention 1 goal intervention scheduled/document ed in this visit PT Impaired muscle performance and/or ROM Disciplines: PT 09/13/2022 Active 1 goal linked to scheduled/document ed intervention 1 goal intervention scheduled/document ed in this visit PT Impaired gait Disciplines: PT 09/13/2022 Active 1 goal linked to scheduled/document ed intervention 1 goal intervention scheduled/document ed in this visit PT Learning Assessment Disciplines: PT 09/13/2022 Active 1 goal linked to scheduled/document ed intervention 1 goal intervention scheduled/document ed in this visit PT Pulmonary Disease Disciplines: PT 09/13/2022 Active 1 goal linked to scheduled/document ed intervention 1 goal intervention scheduled/document ed in this visit Goals Goal Associated Problem Outcome Goal Met? Visit Notes Patient/caregiver will demonstrate ability to obtain, store, identify and administer ordered medications, keep accurate medication list in home, and adhere to medication schedule Description: Patient/caregiver will demonstrate ability to obtain, store, identify and administer ordered medications, keep accurate medication list in home, and adhere to medication schedule by 11/06/22. Medication Education No Patient/caregiver will be able to identify and report symptoms of sepsis Description: Patient/caregiver will be able to identify signs/symptoms of sepsis infection and will verbalize actions to take if suspected by 11/06/22. Sepsis No Patient to maintain parameters within physician-specified ranges throughout certification period Physician Specific Parameters No Manage Risk for falls Description: Patient/caregiver will verbalize knowledge of individualized fall prevention strategies by 11/06/22. Risk for Falls No Manage Pain Description: Patient/caregiver will verbalize knowledge and understanding of appropriate techniques to control pain, including non-pharmacological techniques. Patient will verbalize or demonstrate an acceptable level of pain as evidenced by a pain score of 0/10 and improvement in ability to perform activities of daily living to be achieved by 11/06/22. Pain No Manage oxygen Description: Patient/caregiver will use oxygen safely and effectively in home by verbalizing and demonstrating oxygen safety by 11/06/22. Oxygen No Manage discharge planning Description: Patient/caregiver will verbalize understanding of ongoing discharge plan provided related to disease management, arrangements for outpatient and/or community services, obtaining medications, supplies, and DME, as needed throughout certification period. Discharge No Improved Aerobic Capacity Description: LTG: Patient will demonstrate improved aerobic capacity to meet functional goals as evidenced by the abilit yto complete a 2 Minute Walk Test to be achieved by 10/01/22. LTG: Patient will demonstrate improved aerobic capacity to meet functional goals as evidenced by Rate of Percieved Exertion (RPE) of 3/10 during walking activity, to be achieved by 10/01/22. PT Impaired Aerobic Capacity No Improved Muscle Performance and/or ROM Description: LTG: Patient will demonstrate improved muscle performance to meet functional goals as evidenced by ability to tolerate 10 min of standing activity, to be achieved by 10/01/22.. STG: Patient and/or caregiver will verbalize/demonstrate independence with home exercise program, to improve functional mobility, to be achieved by 09/17/22. PT Impaired muscle performance and/or ROM No Improved Gait Description: LTG: Patient will demonstrate improved gait ability as evidenced by ambulation 300 feet with no device independently, to return to safe household and community ambulation, in order to return to [facility], to be achieved by 10/01/22.. PT Impaired gait No Demonstrate understanding of education Description: Patient and/or caregiver will understand educational instruction to be achieved by 10/01/22.. PT Learning Assessment No Manage Primary Pulmonary Disease Description: Improve patient and/or caregiver understanding of primary pulmonary disease as evidenced by patient and/or caregiver able to verbalize, demonstrate, and teach back instruction, to be achieved by 10/01/22.. PT Pulmonary Disease No Interventions Intervention Associated Problem/Goal Status Variance Visit Notes Medication Education Description: Evaluate/instruct patient/caregiver on obtaining, storing, identifying and administering ordered medications as well as keeping accurate medication list in the home and adhereing to medication schedule Problem:Medication Education Goal:Patient/caregive r will demonstrate ability to obtain, store, identify and administer ordered medications, keep accurate medication list in home, and adhere to medication schedule Completed Patient and Caregiver instructed on importance of keeping accurate medication list in home and adhering to medication schedule. Risk of Sepsis Description: Patient is at risk for sepsis. Monitor closely for s/s of sepsis. Problem:Sepsis Goal:Patient/caregive r will be able to identify and report symptoms of sepsis Completed SPO2 Description: Notify Dr. Otilia Lopez MD if pulse ox is <92% at rest. Problem:Physician Specific Parameters Goal:Patient to maintain parameters within physician-specified ranges throughout certification period Completed Instruct on individual fall risk factors and strategies to prevent falls and injuries caused by falls. Problem:Risk for Falls Goal:Manage Risk for falls Completed PT: Patient instructed on Eliminating Environmental Hazards: Keep pathways clear and Keep pets out of pathways Instruct on pain and instruct on strategies to control pain Problem:Pain Goal:Manage Pain Completed Patient denies pain today Instruct on fire safety and safe and effective use of oxygen in the home Problem:Oxygen Goal:Manage oxygen Completed patient instructed on: oxygen safety as outlined in Home Care Patient Handbook patient demonstrate compliance with safety recommendations. Instruct on ongoing discharge plan Problem:Discharge Goal:Manage discharge planning Completed Ongoing Discharge plan: Discharge plan discussed with patient including frequency and duration for home PT and plan for transition to: live independently at home without ongoing services. Physical Therapy Aerobic Capacity Training Problem:PT Impaired Aerobic Capacity Goal:Improved Aerobic Capacity Completed patient instructed on utilization of the Rate of Percieved Exertion (RPE) scale, to not exceed 3-6/10 indicating moderate to heavy intensity of activity. Developed, implemented, and instructed patient on physical therapy interventions completing 3-5 minutes of continuous and paced activity. Physical Therapy Therapeutic Exercises Problem:PT Impaired muscle performance and/or ROM Goal:Improved Muscle Performance and/or ROM Completed patient instructed on strengthening exercises including seated: laq, hip flexion and adduction and heel toe rocks x's 15 each. restorator x's min with verbal and visual cues for pacing and deep breathing throuhhout. patient instructed to perform home exercise program twice a day which included above exercises . Physical Therapy Gait Training Problem:PT Impaired gait Goal:Improved Gait Completed Gait training and instruction to patient on safe ambulation with no device for 30 feet with supervision, with verbal cues for corrections of gait deviations including pacing for safety and energy conservation amd for management of o2 tubing . Instruct and educate on knowledge deficits Problem:PT Learning Assessment Goal:Demonstrate understanding of education Completed patient verbalize and/or demonstrate understanding of physical therapy education including home exercise program. Education methods include: verbal cues. Further education required to improve knowledge and compliance with home exercise program. Instruct on signs, symptoms, and management of primary pulmonary disease Problem:PT Pulmonary Disease Goal:Manage Primary Pulmonary Disease Completed patient instructed on energy conservation and exercise and activity guidelines. [facility] Visit Details Visit Type -ZIPPER SETTER ROUTINE Discipline -Physical Therapy Problems Problem Description Start Date Status Goals Interve ntions Medication Education Disciplines: Skilled Services 09/08/2022 Active 1 goal linked to scheduled/document ed intervention 1 goal intervention scheduled/document ed in this visit Sepsis Disciplines: Skilled Services 09/08/2022 Active 1 goal linked to scheduled/document ed intervention 1 goal intervention scheduled/document ed in this visit Physician Specific Parameters Disciplines: Skilled Services 09/08/2022 Active 1 goal linked to scheduled/document ed intervention 1 goal intervention scheduled/document ed in this visit Risk for Falls Disciplines: Skilled Services 09/08/2022 Active 1 goal linked to scheduled/document ed intervention 1 goal intervention scheduled/document ed in this visit Pain Disciplines: Skilled Services 09/08/2022 Active 1 goal linked to scheduled/document ed intervention 1 goal intervention scheduled/document ed in this visit Discharge Disciplines: Skilled Services 09/08/2022 Active 1 goal linked to scheduled/document ed intervention 1 goal intervention scheduled/document ed in this visit PT Impaired Aerobic Capacity Disciplines: PT 09/13/2022 Active 1 goal linked to scheduled/document ed intervention 1 goal intervention scheduled/document ed in this visit PT Impaired muscle performance and/or ROM Disciplines: PT 09/13/2022 Active 1 goal linked to scheduled/document ed intervention 1 goal intervention scheduled/document ed in this visit PT Impaired gait Disciplines: PT 09/13/2022 Active 1 goal linked to scheduled/document ed intervention 1 goal intervention scheduled/document ed in this visit PT Impaired balance Disciplines: PT 09/13/2022 Active 1 goal linked to scheduled/document ed intervention 1 goal intervention scheduled/document ed in this visit PT Learning Assessment Disciplines: PT 09/13/2022 Active 1 goal linked to scheduled/document ed intervention 1 goal intervention scheduled/document ed in this visit PT Pulmonary Disease Disciplines: PT 09/13/2022 Active 1 goal linked to scheduled/document ed intervention 1 goal intervention scheduled/document ed in this visit Goals Goal Associated Problem Outcome Goal Met? Visit Notes Patient/caregiver will demonstrate ability to obtain, store, identify and administer ordered medications, keep accurate medication list in home, and adhere to medication schedule Description: Patient/caregiver will demonstrate ability to obtain, store, identify and administer ordered medications, keep accurate medication list in home, and adhere to medication schedule by 11/06/22. Medication Education No Patient/caregiver will be able to identify and report symptoms of sepsis Description: Patient/caregiver will be able to identify signs/symptoms of sepsis infection and will verbalize actions to take if suspected by 11/06/22. Sepsis No Patient to maintain parameters within physician-specified ranges throughout certification period Physician Specific Parameters No Manage Risk for falls Description: Patient/caregiver will verbalize knowledge of individualized fall prevention strategies by 11/06/22. Risk for Falls No Manage Pain Description: Patient/caregiver will verbalize knowledge and understanding of appropriate techniques to control pain, including non-pharmacological techniques. Patient will verbalize or demonstrate an acceptable level of pain as evidenced by a pain score of 0/10 and improvement in ability to perform activities of daily living to be achieved by 11/06/22. Pain No Manage discharge planning Description: Patient/caregiver will verbalize understanding of ongoing discharge plan provided related to disease management, arrangements for outpatient and/or community services, obtaining medications, supplies, and DME, as needed throughout certification period. Discharge No Improved Aerobic Capacity Description: LTG: Patient will demonstrate improved aerobic capacity to meet functional goals as evidenced by the abilit yto complete a 2 Minute Walk Test to be achieved by 10/01/22. LTG: Patient will demonstrate improved aerobic capacity to meet functional goals as evidenced by Rate of Percieved Exertion (RPE) of 3/10 during walking activity, to be achieved by 10/01/22. PT Impaired Aerobic Capacity No Improved Muscle Performance and/or ROM Description: LTG: Patient will demonstrate improved muscle performance to meet functional goals as evidenced by ability to tolerate 10 min of standing activity, to be achieved by 10/01/22.. STG: Patient and/or caregiver will verbalize/demonstrate independence with home exercise program, to improve functional mobility, to be achieved by 09/17/22. PT Impaired muscle performance and/or ROM No Improved Gait Description: LTG: Patient will demonstrate improved gait ability as evidenced by ambulation 300 feet with no device independently, to return to safe household and community ambulation, in order to return to [facility], to be achieved by 10/01/22.. PT Impaired gait No Improved Balance Description: LTG: Patient will demonstrate improved standing balance to meet functional goals as evidenced by TUG score of <18 to be achieved by 10/01/22.. PT Impaired balance No Demonstrate understanding of education Description: Patient and/or caregiver will understand educational instruction to be achieved by 10/01/22.. PT Learning Assessment No Manage Primary Pulmonary Disease Description: Improve patient and/or caregiver understanding of primary pulmonary disease as evidenced by patient and/or caregiver able to verbalize, demonstrate, and teach back instruction, to be achieved by 10/01/22.. PT Pulmonary Disease No Interventions Intervention Associated Problem/Goal Status Variance Visit Notes Medication Education Description: Evaluate/instruct patient/caregiver on obtaining, storing, identifying and administering ordered medications as well as keeping accurate medication list in the home and adhereing to medication schedule Problem:Medication Education Goal:Patient/caregive r will demonstrate ability to obtain, store, identify and administer ordered medications, keep accurate medication list in home, and adhere to medication schedule Completed Patient instructed on importance of keeping accurate medication list in home and adhering to medication schedule. Risk of Sepsis Description: Patient is at risk for sepsis. Monitor closely for s/s of sepsis. Problem:Sepsis Goal:Patient/caregive r will be able to identify and report symptoms of sepsis Completed SPO2 Description: Notify Dr. Otilia Lopez MD if pulse ox is <92% at rest. Problem:Physician Specific Parameters Goal:Patient to maintain parameters within physician-specified ranges throughout certification period Completed Instruct on individual fall risk factors and strategies to prevent falls and injuries caused by falls. Problem:Risk for Falls Goal:Manage Risk for falls Completed PT: Patient instructed on Eliminating Environmental Hazards: Keep pathways clear and Keep pets out of pathways Instruct on pain and instruct on strategies to control pain Problem:Pain Goal:Manage Pain Completed Patient denies pain Instruct on ongoing discharge plan Problem:Discharge Goal:Manage discharge planning Completed Ongoing Discharge plan: Discharge plan discussed with patient including frequency and duration for home PT and plan for transition to: caregiver assistance. Physical Therapy Aerobic Capacity Training Problem:PT Impaired Aerobic Capacity Goal:Improved Aerobic Capacity Completed patient instructed on utilization of the Rate of Percieved Exertion (RPE) scale, to not exceed 3-6/10 indicating moderate to heavy intensity of activity. Developed, implemented, and instructed patient on physical therapy interventions completing 7 minutes of continuous activity. Physical Therapy Therapeutic Exercises Problem:PT Impaired muscle performance and/or ROM Goal:Improved Muscle Performance and/or ROM Completed patient instructed on strengthening exercises including sested laq and hip flexion and adduction, heel and toe raises x's 15each standing hamstring curls and hip abd x's 10 restorator x's 7min with verbal and visual cues for correct form . patient instructed to perform home exercise program twice a day which included above exercises. Physical Therapy Gait Training Problem:PT Impaired gait Goal:Improved Gait Completed Gait training and instruction to patient on safe ambulation with no device for 2x's 35 feet with supervision, with verbal cues for corrections of gait deviations including pacing for safety and energy conservation.. Physical Therapy Balance Training Problem:PT Impaired balance Goal:Improved Balance Completed Developed, implemented, and instructed patient on standing balance exercises including standing exercises . Instruct and educate on knowledge deficits Problem:PT Learning Assessment Goal:Demonstrate understanding of education Completed patient verbalize and/or demonstrate understanding of physical therapy education including home exercise program. Education methods include: verbal cues. Further education required to improve knowledge and compliance with home exercise program. Instruct on signs, symptoms, and management of primary pulmonary disease Problem:PT Pulmonary Disease Goal:Manage Primary Pulmonary Disease Completed patient instructed on instructed on when to call provider. [facility] Visit Details Visit Type -SN ROUTINE Discipline -[facility] Problems Problem Description Start Date Status Goals Interve ntions Medication Education Disciplines: Skilled Services 09/08/2022 Active 1 goal linked to scheduled/documen quinn intervention 1 goal intervention scheduled/document ed in this visit Sepsis Disciplines: Skilled Services 09/08/2022 Active 1 goal linked to scheduled/documen quinn intervention 1 goal intervention scheduled/document ed in this visit Physician Specific Parameters Disciplines: Skilled Services 09/08/2022 Active 1 goal linked to scheduled/documen quinn intervention 1 goal intervention scheduled/document ed in this visit Risk for Falls Disciplines: Skilled Services 09/08/2022 Active 1 goal linked to scheduled/documen quinn intervention 1 goal intervention scheduled/document ed in this visit Pain Disciplines: Skilled Services 09/08/2022 Resolved on 09/27/2022 1 goal linked to scheduled/documen quinn intervention Discharge Disciplines: Skilled Services 09/08/2022 Active 1 goal linked to scheduled/documen quinn intervention 1 goal intervention scheduled/document ed in this visit SN Respiratory Disease Disciplines: SN 09/08/2022 Active 1 goal linked to scheduled/documen quinn intervention 1 goal intervention scheduled/document ed in this visit SN Learning Assessment Disciplines: SN 09/08/2022 Active 1 goal linked to scheduled/documen quinn intervention 1 goal intervention scheduled/document ed in this visit Goals Goal Associated Problem Outcome Goal Met? Visit Notes Patient/caregiver will demonstrate ability to obtain, store, identify and administer ordered medications, keep accurate medication list in home, and adhere to medication schedule Description: Patient/caregiver will demonstrate ability to obtain, store, identify and administer ordered medications, keep accurate medication list in home, and adhere to medication schedule by 11/06/22. Medication Education In Progress No Patient/caregiver will be able to identify and report symptoms of sepsis Description: Patient/caregiver will be able to identify signs/symptoms of sepsis infection and will verbalize actions to take if suspected by 11/06/22. Sepsis In Progress No Patient to maintain parameters within physician-specified ranges throughout certification period Physician Specific Parameters In Progress No Manage Risk for falls Description: Patient/caregiver will verbalize knowledge of individualized fall prevention strategies by 11/06/22. Risk for Falls In Progress No Manage Pain Description: Patient/caregiver will verbalize knowledge and understanding of appropriate techniques to control pain, including non-pharmacological techniques. Patient will verbalize or demonstrate an acceptable level of pain as evidenced by a pain score of 0/10 and improvement in ability to perform activities of daily living to be achieved by 11/06/22. Pain Completed Yes Manage discharge planning Description: Patient/caregiver will verbalize understanding of ongoing discharge plan provided related to disease management, arrangements for outpatient and/or community services, obtaining medications, supplies, and DME, as needed throughout certification period. Discharge In Progress No Improved management of respiratory condition Description: Improve respiratory management as evidenced by patient/caregiver's ability to teach back strategies for improving respiratory status by 11/06/22. SN Respiratory Disease In Progress No Demonstrate understanding of education Description: Patient and/or caregiver will verbalize understanding of educational instruction provided throughout certification period. SN Learning Assessment In Progress No Interventions Intervention Associated Problem/Goal Status Variance Visit Notes Medication Education Description: Evaluate/instruct patient/caregiver on obtaining, storing, identifying and administering ordered medications as well as keeping accurate medication list in the home and adhereing to medication schedule Problem:Medication Education Goal:Patient/caregiv er will demonstrate ability to obtain, store, identify and administer ordered medications, keep accurate medication list in home, and adhere to medication schedule Completed Patient and Caregiver instructed on adhering to medication schedule. Risk of Sepsis Description: Patient is at risk for sepsis. Monitor closely for s/s of sepsis. Problem:Sepsis Goal:Patient/caregiv er will be able to identify and report symptoms of sepsis Completed SPO2 Description: Notify Dr. Otilia Lopez MD if pulse ox is <92% at rest. Problem:Physician Specific Parameters Goal:Patient to maintain parameters within physician-specified ranges throughout certification period Completed Instruct on individual fall risk factors and strategies to prevent falls and injuries caused by falls. Problem:Risk for Falls Goal:Manage Risk for falls Completed SN: Patient and Caregiver instructed on Eliminating Environmental Hazards: Keep pathways clear, Keep pets out of pathways, Keep rooms and walkways well lit and manage oxygen tubing safely Managing Impaired Functional Mobility: Caregiver to provide assist with: Steps Instruct on ongoing discharge plan Problem:Discharge Goal:Manage discharge planning Completed Ongoing Discharge plan: Discharge plan discussed with patient and caregiver including frequency and duration for home SN and plan for transition to: cardiac/pulmonary rehab. Instruct on respiratory disease process and management of condition Description: Patient has following respiratory diagnosis(es): pneumothorax Problem:SN Respiratory Disease Goal:Improved management of respiratory condition Completed patient and caregiver assessed and reinforced on respiratory disease process, zone sheet, self monitoring & symptom reporting, respiratory medication use albuterol, s/s of respiratory infection and breathing management techniques: pursed lip breathing and use of incentive spirometer. Instruct and educate on knowledge deficits Problem:SN Learning Assessment Goal:Demonstrate understanding of education Completed patient and caregiver verbalize and/or demonstrate understanding of nursing education completed today. Education methods include: verbal cues. Further education required to improve knowledge and compliance with fall prevention/home safety strategies, gastrointestinal care management, hematological care management, medication management, nutrition and pulmonary disease management. [facility] Visit Details Visit Type -PT REASSESSMENT Discipline -Physical Therapy Problems Problem Description Start Date Status Goals Interve ntions Sepsis Disciplines: Skilled Services 09/08/2022 Active 1 goal linked to scheduled/document ed intervention 1 goal intervention scheduled/document ed in this visit Physician Specific Parameters Disciplines: Skilled Services 09/08/2022 Active 1 goal linked to scheduled/document ed intervention 1 goal intervention scheduled/document ed in this visit Risk for Falls Disciplines: Skilled Services 09/08/2022 Active 1 goal linked to scheduled/document ed intervention 1 goal intervention scheduled/document ed in this visit Oxygen Disciplines: Skilled Services 09/08/2022 Active 1 goal linked to scheduled/document ed intervention 1 goal intervention scheduled/document ed in this visit Discharge Disciplines: Skilled Services 09/08/2022 Active 1 goal linked to scheduled/document ed intervention 1 goal intervention scheduled/document ed in this visit PT Impaired Aerobic Capacity Disciplines: PT 09/13/2022 Active 1 goal linked to scheduled/document ed intervention 1 goal intervention scheduled/document ed in this visit PT Impaired muscle performance and/or ROM Disciplines: PT 09/13/2022 Active 1 goal linked to scheduled/document ed intervention 1 goal intervention scheduled/document ed in this visit PT Impaired gait Disciplines: PT 09/13/2022 Active 1 goal linked to scheduled/document ed intervention 1 goal intervention scheduled/document ed in this visit PT Learning Assessment Disciplines: PT 09/13/2022 Active 1 goal linked to scheduled/document ed intervention 1 goal intervention scheduled/document ed in this visit PT Pulmonary Disease Disciplines: PT 09/13/2022 Active 1 goal linked to scheduled/document ed intervention 1 goal intervention scheduled/document ed in this visit Goals Goal Associated Problem Outcome Goal Met? Visit Notes Patient/caregiver will be able to identify and report symptoms of sepsis Description: Patient/caregiver will be able to identify signs/symptoms of sepsis infection and will verbalize actions to take if suspected by 11/06/22. Sepsis No Patient to maintain parameters within physician-specified ranges throughout certification period Physician Specific Parameters No Manage Risk for falls Description: Patient/caregiver will verbalize knowledge of individualized fall prevention strategies by 11/06/22. Risk for Falls No Manage oxygen Description: Patient/caregiver will use oxygen safely and effectively in home by verbalizing and demonstrating oxygen safety by 11/06/22. Oxygen No Manage discharge planning Description: Patient/caregiver will verbalize understanding of ongoing discharge plan provided related to disease management, arrangements for outpatient and/or community services, obtaining medications, supplies, and DME, as needed throughout certification period. Discharge No Improved Aerobic Capacity Description: LTG: Patient will demonstrate improved aerobic capacity to meet functional goals as evidenced by the abilit yto complete a 2 Minute Walk Test to be achieved by 10/01/22. reassessment completed - new achieve by date of 10/29/22 LTG: Patient will demonstrate improved aerobic capacity to meet functional goals as evidenced by Rate of Percieved Exertion (RPE) of 3/10 during walking activity, to be achieved by 10/01/22. reassessment completed - new achieve by date of 10/29/22 PT Impaired Aerobic Capacity No Improved Muscle Performance and/or ROM Description: LTG: Patient will demonstrate improved muscle performance to meet functional goals as evidenced by ability to tolerate 10 min of standing activity, to be achieved by 10/01/22.. reassessment completed - new achieve by date of 10/29/22 STG: Patient and/or caregiver will verbalize/demonstrate independence with home exercise program, to improve functional mobility, to be achieved by 09/17/22. reassessment completed - new achieve by date of 10/29/22 PT Impaired muscle performance and/or ROM No Improved Gait Description: LTG: Patient will demonstrate improved gait ability as evidenced by ambulation 300 feet with no device independently, to return to safe household and community ambulation, in order to return to [facility], to be achieved by 10/01/22.. reassessment completed - new achieve by date of 10/29/22 PT Impaired gait No Demonstrate understanding of education Description: Patient and/or caregiver will understand educational instruction to be achieved by 10/01/22.. reassessment completed - new achieve by date of 10/29/22 PT Learning Assessment No Manage Primary Pulmonary Disease Description: Improve patient and/or caregiver understanding of primary pulmonary disease as evidenced by patient and/or caregiver able to verbalize, demonstrate, and teach back instruction, to be achieved by 10/01/22.. reassessment completed - new achieve by date of 10/29/22 PT Pulmonary Disease No Interventions Intervention Associated Problem/Goal Status Variance Visit Notes Risk of Sepsis Description: Patient is at risk for sepsis. Monitor closely for s/s of sepsis. Problem:Sepsis Goal:Patient/caregiv er will be able to identify and report symptoms of sepsis Completed SPO2 Description: Notify Dr. Otilia Lopez MD if pulse ox is <92% at rest. Problem:Physician Specific Parameters Goal:Patient to maintain parameters within physician-specified ranges throughout certification period Completed Instruct on individual fall risk factors and strategies to prevent falls and injuries caused by falls. Problem:Risk for Falls Goal:Manage Risk for falls Completed PT: Patient instructed on Eliminating Environmental Hazards: Keep pathways clear, Keep pets out of pathways, Remove unsafe rugs and Move furniture from pathways Instruct on fire safety and safe and effective use of oxygen in the home Problem:Oxygen Goal:Manage oxygen Completed patient and caregiver instructed on: oxygen safety as outlined in Home Care Patient Handbook patient and caregiver demonstrate compliance with safety recommendations. recommended checking line daily for holes Instruct on ongoing discharge plan Problem:Discharge Goal:Manage discharge planning Completed Ongoing Discharge plan: Discharge plan discussed with patient including frequency and duration for home PT and plan for transition to: cardiac/pulmonary rehab. Physical Therapy Aerobic Capacity Training Problem:PT Impaired Aerobic Capacity Goal:Improved Aerobic Capacity Completed patient instructed on utilization of the Rate of Percieved Exertion (RPE) scale, to not exceed 3-6/10 indicating moderate to heavy intensity of activity. Developed, implemented, and instructed patient on physical therapy interventions completing 8 minutes of continuous, paced and physiologically monitored activity. Restorator with no resistance x 8 min O2 set on 5 PSO2 fluctuatedbetween 96-99 then entire time and HR 87-90 bpm Physical Therapy Therapeutic Exercises Problem:PT Impaired muscle performance and/or ROM Goal:Improved Muscle Performance and/or ROM Completed patient instructed on strengthening exercises including : standing heel/ toe raises, hamstring curls and march, hip abd and knee bends x's 10 each. verbal and visual cues for form and pace. patient instructed to perform home exercise program twice a day which included above exercises . Physical Therapy Gait Training Problem:PT Impaired gait Goal:Improved Gait Completed Gait training and instruction to patient on safe ambulation with no device for 30' x 2 feet with supervision, with verbal cues for corrections of gait deviations including managment of tunbing and not holding his breath . Instruct and educate on knowledge deficits Problem:PT Learning Assessment Goal:Demonstrate understanding of education Completed patient verbalize and/or demonstrate understanding of physical therapy education including pulmonary disease management, oxygen safety, functional activity and home exercise program. Education methods include: verbal cues. Further education required to improve knowledge and compliance with pulmonary disease management, oxygen safety, functional activity and home exercise program. Instruct on signs, symptoms, and management of primary pulmonary disease Problem:PT Pulmonary Disease Goal:Manage Primary Pulmonary Disease Completed patient instructed on use of zone sheet, use of RPE scale, exercise and activity guidelines and instructed on when to call provider. [facility] Visit Details Visit Type -ZIPPER SETTER ROUTINE Discipline -Physical Therapy Problems Problem Description Start Date Status Goals Interve ntions Medication Education Disciplines: Skilled Services 09/08/2022 Active 1 goal linked to scheduled/document ed intervention 1 goal intervention scheduled/document ed in this visit Sepsis Disciplines: Skilled Services 09/08/2022 Active 1 goal linked to scheduled/document ed intervention 1 goal intervention scheduled/document ed in this visit Physician Specific Parameters Disciplines: Skilled Services 09/08/2022 Active 1 goal linked to scheduled/document ed intervention 1 goal intervention scheduled/document ed in this visit Risk for Falls Disciplines: Skilled Services 09/08/2022 Active 1 goal linked to scheduled/document ed intervention 1 goal intervention scheduled/document ed in this visit Oxygen Disciplines: Skilled Services 09/08/2022 Active 1 goal linked to scheduled/document ed intervention 1 goal intervention scheduled/document ed in this visit Discharge Disciplines: Skilled Services 09/08/2022 Active 1 goal linked to scheduled/document ed intervention 1 goal intervention scheduled/document ed in this visit PT Impaired Aerobic Capacity Disciplines: PT 09/13/2022 Active 1 goal linked to scheduled/document ed intervention 1 goal intervention scheduled/document ed in this visit PT Impaired muscle performance and/or ROM Disciplines: PT 09/13/2022 Active 1 goal linked to scheduled/document ed intervention 1 goal intervention scheduled/document ed in this visit PT Impaired gait Disciplines: PT 09/13/2022 Active 1 goal linked to scheduled/document ed intervention 1 goal intervention scheduled/document ed in this visit PT Impaired balance Disciplines: PT 09/13/2022 Active 1 goal linked to scheduled/document ed intervention 1 goal intervention scheduled/document ed in this visit PT Learning Assessment Disciplines: PT 09/13/2022 Active 1 goal linked to scheduled/document ed intervention 1 goal intervention scheduled/document ed in this visit PT Pulmonary Disease Disciplines: PT 09/13/2022 Active 1 goal linked to scheduled/document ed intervention 1 goal intervention scheduled/document ed in this visit Goals Goal Associated Problem Outcome Goal Met? Visit Notes Patient/caregiver will demonstrate ability to obtain, store, identify and administer ordered medications, keep accurate medication list in home, and adhere to medication schedule Description: Patient/caregiver will demonstrate ability to obtain, store, identify and administer ordered medications, keep accurate medication list in home, and adhere to medication schedule by 11/06/22. Medication Education No Patient/caregiver will be able to identify and report symptoms of sepsis Description: Patient/caregiver will be able to identify signs/symptoms of sepsis infection and will verbalize actions to take if suspected by 11/06/22. Sepsis No Patient to maintain parameters within physician-specified ranges throughout certification period Physician Specific Parameters No Manage Risk for falls Description: Patient/caregiver will verbalize knowledge of individualized fall prevention strategies by 11/06/22. Risk for Falls No Manage oxygen Description: Patient/caregiver will use oxygen safely and effectively in home by verbalizing and demonstrating oxygen safety by 11/06/22. Oxygen No Manage discharge planning Description: Patient/caregiver will verbalize understanding of ongoing discharge plan provided related to disease management, arrangements for outpatient and/or community services, obtaining medications, supplies, and DME, as needed throughout certification period. Discharge No Improved Aerobic Capacity Description: LTG: Patient will demonstrate improved aerobic capacity to meet functional goals as evidenced by the abilit yto complete a 2 Minute Walk Test to be achieved by 10/01/22. reassessment completed - new achieve by date of 10/29/22 LTG: Patient will demonstrate improved aerobic capacity to meet functional goals as evidenced by Rate of Percieved Exertion (RPE) of 3/10 during walking activity, to be achieved by 10/01/22. reassessment completed - new achieve by date of 10/29/22 PT Impaired Aerobic Capacity No Improved Muscle Performance and/or ROM Description: LTG: Patient will demonstrate improved muscle performance to meet functional goals as evidenced by ability to tolerate 10 min of standing activity, to be achieved by 10/01/22.. reassessment completed - new achieve by date of 10/29/22 STG: Patient and/or caregiver will verbalize/demonstrate independence with home exercise program, to improve functional mobility, to be achieved by 09/17/22. reassessment completed - new achieve by date of 10/29/22 PT Impaired muscle performance and/or ROM No Improved Gait Description: LTG: Patient will demonstrate improved gait ability as evidenced by ambulation 300 feet with no device independently, to return to safe household and community ambulation, in order to return to plf, to be achieved by 10/01/22.. reassessment completed - new achieve by date of 10/29/22 PT Impaired gait No Improved Balance Description: LTG: Patient will demonstrate improved standing balance to meet functional goals as evidenced by TUG score of <18 to be achieved by 10/01/22.. reassessment completed - new achieve by date of 10/29/22 PT Impaired balance No Demonstrate understanding of education Description: Patient and/or caregiver will understand educational instruction to be achieved by 10/01/22.. reassessment completed - new achieve by date of 10/29/22 PT Learning Assessment No Manage Primary Pulmonary Disease Description: Improve patient and/or caregiver understanding of primary pulmonary disease as evidenced by patient and/or caregiver able to verbalize, demonstrate, and teach back instruction, to be achieved by 10/01/22.. reassessment completed - new achieve by date of 10/29/22 PT Pulmonary Disease No Interventions Intervention Associated Problem/Goal Status Variance Visit Notes Medication Education Description: Evaluate/instruct patient/caregiver on obtaining, storing, identifying and administering ordered medications as well as keeping accurate medication list in the home and adhereing to medication schedule Problem:Medication Education Goal:Patient/caregive r will demonstrate ability to obtain, store, identify and administer ordered medications, keep accurate medication list in home, and adhere to medication schedule Completed Patient instructed on importance of keeping accurate medication list in home and adhering to medication schedule. Risk of Sepsis Description: Patient is at risk for sepsis. Monitor closely for s/s of sepsis. Problem:Sepsis Goal:Patient/caregive r will be able to identify and report symptoms of sepsis Completed SPO2 Description: Notify Dr. Otilia Lopez MD if pulse ox is <92% at rest. Problem:Physician Specific Parameters Goal:Patient to maintain parameters within physician-specified ranges throughout certification period Completed Instruct on individual fall risk factors and strategies to prevent falls and injuries caused by falls. Problem:Risk for Falls Goal:Manage Risk for falls Completed PT: Patient instructed on Eliminating Environmental Hazards: Keep pathways clear, Keep pets out of pathways and Move furniture from pathways Instruct on fire safety and safe and effective use of oxygen in the home Problem:Oxygen Goal:Manage oxygen Completed patient instructed on: oxygen safety as outlined in Home Care Patient Handbook patient demonstrate compliance with safety recommendations. Instruct on ongoing discharge plan Problem:Discharge Goal:Manage discharge planning Completed Ongoing Discharge plan: Discharge plan discussed with patient including frequency and duration for home PT and plan for transition to: caregiver assistance. Physical Therapy Aerobic Capacity Training Problem:PT Impaired Aerobic Capacity Goal:Improved Aerobic Capacity Completed patient instructed on utilization of the Rate of Percieved Exertion (RPE) scale, to not exceed 3-6/10 indicating moderate to heavy intensity of activity. Developed, implemented, and instructed patient on physical therapy interventions completing 10 minutes of continuous activity. Physical Therapy Therapeutic Exercises Problem:PT Impaired muscle performance and/or ROM Goal:Improved Muscle Performance and/or ROM Completed patient instructed on strengthening exercises including standing heel toe raises, hip abd and flexion, mini sits x's 10each. seated laq, hip flexion and adduction x's 12 each. restorator x's 10 min with verbal and visual cues for form and upright posture, deep breathing. patient instructed to perform home exercise program twice a day which included above exercises. Physical Therapy Gait Training Problem:PT Impaired gait Goal:Improved Gait Completed Gait training and instruction to patient on safe ambulation with no device for 3x's 20 feet with supervision, with verbal cues for corrections of gait deviations including safety and energy conservation. Physical Therapy Balance Training Problem:PT Impaired balance Goal:Improved Balance Completed Developed, implemented, and instructed patient on standing balance exercises including standing exercises. Instruct and educate on knowledge deficits Problem:PT Learning Assessment Goal:Demonstrate understanding of education Completed patient verbalize and/or demonstrate understanding of physical therapy education including pulmonary disease management, home safety and home exercise program. Education methods include: verbal cues. Further education required to improve knowledge and compliance with home exercise program. Instruct on signs, symptoms, and management of primary pulmonary disease Problem:PT Pulmonary Disease Goal:Manage Primary Pulmonary Disease Completed patient instructed on energy conservation and breathing management. documented in this [facility] of care [facility]* Visit Details Visit Type -SN ROUTINE Discipline -[facility] Problems Problem Description Start Date Status Goals Interve ntions Medication Education Disciplines: Skilled Services 09/08/2022 Active 1 goal linked to scheduled/document ed intervention 1 goal intervention scheduled/document ed in this visit Sepsis Disciplines: Skilled Services 09/08/2022 Active 1 goal linked to scheduled/document ed intervention 1 goal intervention scheduled/document ed in this visit Physician Specific Parameters Disciplines: Skilled Services 09/08/2022 Active 1 goal linked to scheduled/document ed intervention 1 goal intervention scheduled/document ed in this visit Risk for Falls Disciplines: Skilled Services 09/08/2022 Active 1 goal linked to scheduled/document ed intervention 1 goal intervention scheduled/document ed in this visit Oxygen Disciplines: Skilled Services 09/08/2022 Active 1 goal linked to scheduled/document ed intervention 1 goal intervention scheduled/document ed in this visit Discharge Disciplines: Skilled Services 09/08/2022 Active 1 goal linked to scheduled/document ed intervention 1 goal intervention scheduled/document ed in this visit Advance Directives Disciplines: Skilled Services 09/08/2022 Active 1 goal linked to scheduled/document ed intervention SN Respiratory Disease Disciplines: SN 09/08/2022 Active 1 goal linked to scheduled/document ed intervention 1 goal intervention scheduled/document ed in this visit SN Learning Assessment Disciplines: SN 09/08/2022 Active 1 goal linked to scheduled/document ed intervention 1 goal intervention scheduled/document ed in this visit Goals Goal Associated Problem Outcome Goal Met? Visit Notes Patient/caregiver will demonstrate ability to obtain, store, identify and administer ordered medications, keep accurate medication list in home, and adhere to medication schedule Description: Patient/caregiver will demonstrate ability to obtain, store, identify and administer ordered medications, keep accurate medication list in home, and adhere to medication schedule by 11/06/22. Medication Education In Progress No Patient/caregiver will be able to identify and report symptoms of sepsis Description: Patient/caregiver will be able to identify signs/symptoms of sepsis infection and will verbalize actions to take if suspected by 11/06/22. Sepsis In Progress No Patient to maintain parameters within physician-specified ranges throughout certification period Physician Specific Parameters In Progress No Manage Risk for falls Description: Patient/caregiver will verbalize knowledge of individualized fall prevention strategies by 11/06/22. Risk for Falls In Progress No Manage oxygen Description: Patient/caregiver will use oxygen safely and effectively in home by verbalizing and demonstrating oxygen safety by 11/06/22. Oxygen In Progress No Manage discharge planning Description: Patient/caregiver will verbalize understanding of ongoing discharge plan provided related to disease management, arrangements for outpatient and/or community services, obtaining medications, supplies, and DME, as needed throughout certification period. Discharge In Progress No Patient/caregiver will make healthcare providers aware of and any changes to Advance Directives throughout certification period Advance Directives Completed Yes Improved management of respiratory condition Description: Improve respiratory management as evidenced by patient/caregiver's ability to teach back strategies for improving respiratory status by 11/06/22. SN Respiratory Disease In Progress No Demonstrate understanding of education Description: Patient and/or caregiver will verbalize understanding of educational instruction provided throughout certification period. SN Learning Assessment In Progress No Interventions Intervention Associated Problem/Goal Status Variance Visit Notes Medication Education Description: Evaluate/instruct patient/caregiver on obtaining, storing, identifying and administering ordered medications as well as keeping accurate medication list in the home and adhereing to medication schedule Problem:Medication Education Goal:Patient/caregiv er will demonstrate ability to obtain, store, identify and administer ordered medications, keep accurate medication list in home, and adhere to medication schedule Completed Patient and Caregiver instructed on adhering to medication schedule and Medication, route, dose, frequency, purpose, and side effects of Trelegy medications. Risk of Sepsis Description: Patient is at risk for sepsis. Monitor closely for s/s of sepsis. Problem:Sepsis Goal:Patient/caregiv er will be able to identify and report symptoms of sepsis Completed SPO2 Description: Notify Dr. Otilia Lopez MD if pulse ox is <92% at rest. Problem:Physician Specific Parameters Goal:Patient to maintain parameters within physician-specified ranges throughout certification period Completed Instruct on individual fall risk factors and strategies to prevent falls and injuries caused by falls. Problem:Risk for Falls Goal:Manage Risk for falls Completed SN: Patient and Caregiver instructed on Eliminating Environmental Hazards: Keep pathways clear, Keep pets out of pathways and manage oxygen tubing. Instruct on fire safety and safe and effective use of oxygen in the home Problem:Oxygen Goal:Manage oxygen Completed patient and caregiver instructed on: findings of safety risk assessment: pt and cg to monitor for need of oxygen tubing replacement. patient and caregiver demonstrate compliance with safety recommendations. Instruct on ongoing discharge plan Problem:Discharge Goal:Manage discharge planning Completed Ongoing Discharge plan: Discharge plan discussed with patient and caregiver including frequency and duration for home SN and plan for transition to: cardiac/pulmonary rehab. Instruct on respiratory disease process and management of condition Description: Patient has following respiratory diagnosis(es): pneumothorax Problem:SN Respiratory Disease Goal:Improved management of respiratory condition Completed patient and caregiver assessed and reinforced on respiratory disease process, zone sheet, self monitoring & symptom reporting, respiratory medication use Trelogy, s/s of respiratory infection, breathing management techniques: pursed lip breathing and use of incentive spirometer and anxiety management. Instruct and educate on knowledge deficits Problem:SN Learning Assessment Goal:Demonstrate understanding of education Completed patient and caregiver verbalize and/or demonstrate understanding of nursing education completed today. Education methods include: verbal cues, tactile cues, visual cues and teach back. Further education required to improve knowledge and compliance with fall prevention/home safety strategies, gastrointestinal care management, medication management, nutrition, oxygen safety and pulmonary disease management. [facility] Visit Details Visit Type -ZIPPER SETTER ROUTINE Discipline -Physical Therapy Problems Problem Description Start Date Status Goals Interve ntions Medication Education Disciplines: Skilled Services 09/08/2022 Active 1 goal linked to scheduled/document ed intervention 1 goal intervention scheduled/document ed in this visit Sepsis Disciplines: Skilled Services 09/08/2022 Active 1 goal linked to scheduled/document ed intervention 1 goal intervention scheduled/document ed in this visit Physician Specific Parameters Disciplines: Skilled Services 09/08/2022 Active 1 goal linked to scheduled/document ed intervention 1 goal intervention scheduled/document ed in this visit Risk for Falls Disciplines: Skilled Services 09/08/2022 Active 1 goal linked to scheduled/document ed intervention 1 goal intervention scheduled/document ed in this visit Oxygen Disciplines: Skilled Services 09/08/2022 Active 1 goal linked to scheduled/document ed intervention 1 goal intervention scheduled/document ed in this visit Discharge Disciplines: Skilled Services 09/08/2022 Active 1 goal linked to scheduled/document ed intervention 1 goal intervention scheduled/document ed in this visit PT Impaired Aerobic Capacity Disciplines: PT 09/13/2022 Active 1 goal linked to scheduled/document ed intervention 1 goal intervention scheduled/document ed in this visit PT Impaired muscle performance and/or ROM Disciplines: PT 09/13/2022 Active 1 goal linked to scheduled/document ed intervention 1 goal intervention scheduled/document ed in this visit PT Impaired gait Disciplines: PT 09/13/2022 Active 1 goal linked to scheduled/document ed intervention 1 goal intervention scheduled/document ed in this visit PT Impaired balance Disciplines: PT 09/13/2022 Active 1 goal linked to scheduled/document ed intervention 1 goal intervention scheduled/document ed in this visit PT Learning Assessment Disciplines: PT 09/13/2022 Active 1 goal linked to scheduled/document ed intervention 1 goal intervention scheduled/document ed in this visit PT Pulmonary Disease Disciplines: PT 09/13/2022 Active 1 goal linked to scheduled/document ed intervention 1 goal intervention scheduled/document ed in this visit Goals Goal Associated Problem Outcome Goal Met? Visit Notes Patient/caregiver will demonstrate ability to obtain, store, identify and administer ordered medications, keep accurate medication list in home, and adhere to medication schedule Description: Patient/caregiver will demonstrate ability to obtain, store, identify and administer ordered medications, keep accurate medication list in home, and adhere to medication schedule by 11/06/22. Medication Education No Patient/caregiver will be able to identify and report symptoms of sepsis Description: Patient/caregiver will be able to identify signs/symptoms of sepsis infection and will verbalize actions to take if suspected by 11/06/22. Sepsis No Patient to maintain parameters within physician-specified ranges throughout certification period Physician Specific Parameters No Manage Risk for falls Description: Patient/caregiver will verbalize knowledge of individualized fall prevention strategies by 11/06/22. Risk for Falls No Manage oxygen Description: Patient/caregiver will use oxygen safely and effectively in home by verbalizing and demonstrating oxygen safety by 11/06/22. Oxygen No Manage discharge planning Description: Patient/caregiver will verbalize understanding of ongoing discharge plan provided related to disease management, arrangements for outpatient and/or community services, obtaining medications, supplies, and DME, as needed throughout certification period. Discharge No Improved Aerobic Capacity Description: LTG: Patient will demonstrate improved aerobic capacity to meet functional goals as evidenced by the abilit yto complete a 2 Minute Walk Test to be achieved by 10/01/22. reassessment completed - new achieve by date of 10/29/22 LTG: Patient will demonstrate improved aerobic capacity to meet functional goals as evidenced by Rate of Percieved Exertion (RPE) of 3/10 during walking activity, to be achieved by 10/01/22. reassessment completed - new achieve by date of 10/29/22 PT Impaired Aerobic Capacity No Improved Muscle Performance and/or ROM Description: LTG: Patient will demonstrate improved muscle performance to meet functional goals as evidenced by ability to tolerate 10 min of standing activity, to be achieved by 10/01/22.. reassessment completed - new achieve by date of 10/29/22 STG: Patient and/or caregiver will verbalize/demonstrate independence with home exercise program, to improve functional mobility, to be achieved by 09/17/22. reassessment completed - new achieve by date of 10/29/22 PT Impaired muscle performance and/or ROM No Improved Gait Description: LTG: Patient will demonstrate improved gait ability as evidenced by ambulation 300 feet with no device independently, to return to safe household and community ambulation, in order to return to plf, to be achieved by 10/01/22.. reassessment completed - new achieve by date of 10/29/22 PT Impaired gait No Improved Balance Description: LTG: Patient will demonstrate improved standing balance to meet functional goals as evidenced by TUG score of <18 to be achieved by 10/01/22.. reassessment completed - new achieve by date of 10/29/22 PT Impaired balance No Demonstrate understanding of education Description: Patient and/or caregiver will understand educational instruction to be achieved by 10/01/22.. reassessment completed - new achieve by date of 10/29/22 PT Learning Assessment No Manage Primary Pulmonary Disease Description: Improve patient and/or caregiver understanding of primary pulmonary disease as evidenced by patient and/or caregiver able to verbalize, demonstrate, and teach back instruction, to be achieved by 10/01/22.. reassessment completed - new achieve by date of 10/29/22 PT Pulmonary Disease No Interventions Intervention Associated Problem/Goal Status Variance Visit Notes Medication Education Description: Evaluate/instruct patient/caregiver on obtaining, storing, identifying and administering ordered medications as well as keeping accurate medication list in the home and adhereing to medication schedule Problem:Medication Education Goal:Patient/caregive r will demonstrate ability to obtain, store, identify and administer ordered medications, keep accurate medication list in home, and adhere to medication schedule Completed Patient instructed on importance of keeping accurate medication list in home and adhering to medication schedule. Risk of Sepsis Description: Patient is at risk for sepsis. Monitor closely for s/s of sepsis. Problem:Sepsis Goal:Patient/caregive r will be able to identify and report symptoms of sepsis Completed SPO2 Description: Notify Dr. Otilia Lopez MD if pulse ox is <92% at rest. Problem:Physician Specific Parameters Goal:Patient to maintain parameters within physician-specified ranges throughout certification period Completed Instruct on individual fall risk factors and strategies to prevent falls and injuries caused by falls. Problem:Risk for Falls Goal:Manage Risk for falls Completed PT: Patient instructed on Eliminating Environmental Hazards: Keep pathways clear and Keep pets out of pathways Instruct on fire safety and safe and effective use of oxygen in the home Problem:Oxygen Goal:Manage oxygen Completed patient instructed on: oxygen safety as outlined in Home Care Patient Handbook patient demonstrate compliance with safety recommendations. Instruct on ongoing discharge plan Problem:Discharge Goal:Manage discharge planning Completed Ongoing Discharge plan: Discharge plan discussed with patient including frequency and duration for home PT and plan for transition to: caregiver assistance. Physical Therapy Aerobic Capacity Training Problem:PT Impaired Aerobic Capacity Goal:Improved Aerobic Capacity Completed patient instructed on utilization of the Rate of Percieved Exertion (RPE) scale, to not exceed 3-6/10 indicating moderate to heavy intensity of activity. Developed, implemented, and instructed patient on physical therapy interventions completing 10 minutes of continuous activity. Physical Therapy Therapeutic Exercises Problem:PT Impaired muscle performance and/or ROM Goal:Improved Muscle Performance and/or ROM Completed patient instructed on strengthening exercises including standing heel toe raises , hip abd and flexion, and hamstring curls and mini sits x's 15 each restorator x's 10 min with verbal cues for posture and head up . patient instructed to perform home exercise program twice a day which included above exercises . Physical Therapy Gait Training Problem:PT Impaired gait Goal:Improved Gait Completed Gait training and instruction to patient on safe ambulation with no device for 3x'sm25 feet with supervision, with verbal cues for corrections of gait deviations including safety and for managing O2 Physical Therapy Balance Training Problem:PT Impaired balance Goal:Improved Balance Completed Developed, implemented, and instructed patient on standing balance exercises including toe taps x's 10 each w/ unilateral support. Instruct and educate on knowledge deficits Problem:PT Learning Assessment Goal:Demonstrate understanding of education Completed patient verbalize and/or demonstrate understanding of physical therapy education including oxygen safety, functional activity and home exercise program. Education methods include: verbal cues and visual cues. Further education required to improve knowledge and compliance with home exercise program. Instruct on signs, symptoms, and management of primary pulmonary disease Problem:PT Pulmonary Disease Goal:Manage Primary Pulmonary Disease Completed patient instructed on energy conservation. [facility] Visit Details Visit Type -ZIPPER SETTER ROUTINE Discipline -Physical Therapy Problems Problem Description Start Date Status Goals Interve ntions Medication Education Disciplines: Skilled Services 09/08/2022 Active 1 goal linked to scheduled/document ed intervention 1 goal intervention scheduled/document ed in this visit Sepsis Disciplines: Skilled Services 09/08/2022 Active 1 goal linked to scheduled/document ed intervention 1 goal intervention scheduled/document ed in this visit Physician Specific Parameters Disciplines: Skilled Services 09/08/2022 Active 1 goal linked to scheduled/document ed intervention 1 goal intervention scheduled/document ed in this visit Risk for Falls Disciplines: Skilled Services 09/08/2022 Active 1 goal linked to scheduled/document ed intervention 1 goal intervention scheduled/document ed in this visit Oxygen Disciplines: Skilled Services 09/08/2022 Active 1 goal linked to scheduled/document ed intervention 1 goal intervention scheduled/document ed in this visit Discharge Disciplines: Skilled Services 09/08/2022 Active 1 goal linked to scheduled/document ed intervention 1 goal intervention scheduled/document ed in this visit PT Impaired Aerobic Capacity Disciplines: PT 09/13/2022 Active 1 goal linked to scheduled/document ed intervention 1 goal intervention scheduled/document ed in this visit PT Impaired muscle performance and/or ROM Disciplines: PT 09/13/2022 Active 1 goal linked to scheduled/document ed intervention 1 goal intervention scheduled/document ed in this visit PT Impaired gait Disciplines: PT 09/13/2022 Active 2 goals linked to scheduled/document ed interventions 2 goal interventions scheduled/document ed in this visit PT Impaired balance Disciplines: PT 09/13/2022 Active 1 goal linked to scheduled/document ed intervention 1 goal intervention scheduled/document ed in this visit Goals Goal Associated Problem Outcome Goal Met? Visit Notes Patient/caregiver will demonstrate ability to obtain, store, identify and administer ordered medications, keep accurate medication list in home, and adhere to medication schedule Description: Patient/caregiver will demonstrate ability to obtain, store, identify and administer ordered medications, keep accurate medication list in home, and adhere to medication schedule by 11/06/22. Medication Education No Patient/caregiver will be able to identify and report symptoms of sepsis Description: Patient/caregiver will be able to identify signs/symptoms of sepsis infection and will verbalize actions to take if suspected by 11/06/22. Sepsis No Patient to maintain parameters within physician-specified ranges throughout certification period Physician Specific Parameters No Manage Risk for falls Description: Patient/caregiver will verbalize knowledge of individualized fall prevention strategies by 11/06/22. Risk for Falls No Manage oxygen Description: Patient/caregiver will use oxygen safely and effectively in home by verbalizing and demonstrating oxygen safety by 11/06/22. Oxygen No Manage discharge planning Description: Patient/caregiver will verbalize understanding of ongoing discharge plan provided related to disease management, arrangements for outpatient and/or community services, obtaining medications, supplies, and DME, as needed throughout certification period. Discharge No Improved Aerobic Capacity Description: LTG: Patient will demonstrate improved aerobic capacity to meet functional goals as evidenced by the abilit yto complete a 2 Minute Walk Test to be achieved by 10/01/22. reassessment completed - new achieve by date of 10/29/22 LTG: Patient will demonstrate improved aerobic capacity to meet functional goals as evidenced by Rate of Percieved Exertion (RPE) of 3/10 during walking activity, to be achieved by 10/01/22. reassessment completed - new achieve by date of 10/29/22 PT Impaired Aerobic Capacity No Improved Muscle Performance and/or ROM Description: LTG: Patient will demonstrate improved muscle performance to meet functional goals as evidenced by ability to tolerate 10 min of standing activity, to be achieved by 10/01/22.. reassessment completed - new achieve by date of 10/29/22 STG: Patient and/or caregiver will verbalize/demonstrate independence with home exercise program, to improve functional mobility, to be achieved by 09/17/22. reassessment completed - new achieve by date of 10/29/22 PT Impaired muscle performance and/or ROM No Improved Stair Climbing Description: LTG: Patient will demonstrate improved stair negotiation as evidenced by ascend/descend 12 steps with railing independently, to safely access all areas of the home, to be achieved by 10/01/22.. reassessment completed - new achieve by date of 10/29/22 PT Impaired gait No Improved Gait Description: LTG: Patient will demonstrate improved gait ability as evidenced by ambulation 300 feet with no device independently, to return to safe household and community ambulation, in order to return to [facility], to be achieved by 10/01/22.. reassessment completed - new achieve by date of 10/29/22 PT Impaired gait No Improved Balance Description: LTG: Patient will demonstrate improved standing balance to meet functional goals as evidenced by TUG score of <18 to be achieved by 10/01/22.. reassessment completed - new achieve by date of 10/29/22 PT Impaired balance No Interventions Intervention Associated Problem/Goal Status Variance Visit Notes Medication Education Description: Evaluate/instruct patient/caregiver on obtaining, storing, identifying and administering ordered medications as well as keeping accurate medication list in the home and adhereing to medication schedule Problem:Medication Education Goal:Patient/caregive r will demonstrate ability to obtain, store, identify and administer ordered medications, keep accurate medication list in home, and adhere to medication schedule Completed Patient instructed on importance of keeping accurate medication list in home and adhering to medication schedule. Risk of Sepsis Description: Patient is at risk for sepsis. Monitor closely for s/s of sepsis. Problem:Sepsis Goal:Patient/caregive r will be able to identify and report symptoms of sepsis Completed SPO2 Description: Notify Dr. Otilia Lopez MD if pulse ox is <92% at rest. Problem:Physician Specific Parameters Goal:Patient to maintain parameters within physician-specified ranges throughout certification period Completed Instruct on individual fall risk factors and strategies to prevent falls and injuries caused by falls. Problem:Risk for Falls Goal:Manage Risk for falls Completed PT: Patient instructed on Eliminating Environmental Hazards: Keep pathways clear and Keep pets out of pathways Managing Impaired Functional Mobility: Caregiver to provide assist with: outdoor ambulation Instruct on fire safety and safe and effective use of oxygen in the home Problem:Oxygen Goal:Manage oxygen Completed patient instructed on: causes of fires patient demonstrate compliance with safety recommendations. Instruct on ongoing discharge plan Problem:Discharge Goal:Manage discharge planning Completed Ongoing Discharge plan: Discharge plan discussed with patient including frequency and duration for home PT and plan for transition to: caregiver assistance. Physical Therapy Aerobic Capacity Training Problem:PT Impaired Aerobic Capacity Goal:Improved Aerobic Capacity Completed patient instructed on utilization of the Rate of Percieved Exertion (RPE) scale, to not exceed 3-6/10 indicating moderate to heavy intensity of activity. Developed, implemented, and instructed patient on physical therapy interventions completing 15 minutes of continuous activity. Physical Therapy Therapeutic Exercises Problem:PT Impaired muscle performance and/or ROM Goal:Improved Muscle Performance and/or ROM Completed patient instructed on strengthening exercises including standing heel toe raises, hip abd and flexion, hamstring curld , mini sits x's 15 each step ups x's 5 each. restorator x's 10 min with verbal and visual cues for pacing. patient instructed to perform home exercise program twice a day which included above ex. Physical Therapy Stair Training Problem:PT Impaired gait Goal:Improved Stair Climbing Completed Stair training and instruction to patient on safe stair climbing, ascend/descend step ups on standard step , with supervision and verbal cues for pacing . Physical Therapy Gait Training Problem:PT Impaired gait Goal:Improved Gait Completed Gait training and instruction to patient on safe ambulation with no device for 4x's 25 feet with supervision, with verbal cues for corrections of gait deviations including pacing and for [id number] management. Physical Therapy Balance Training Problem:PT Impaired balance Goal:Improved Balance Completed Developed, implemented, and instructed patient on standing balance exercises including standing exercises. [facility] Visit Details Visit Type -SN ROUTINE Discipline -[facility] Problems Problem Description Start Date Status Goals Interve ntions Medication Education Disciplines: Skilled Services 09/08/2022 Active 1 goal linked to scheduled/documen quinn intervention 1 goal intervention scheduled/document ed in this visit Sepsis Disciplines: Skilled Services 09/08/2022 Active 1 goal linked to scheduled/documen quinn intervention 1 goal intervention scheduled/document ed in this visit Physician Specific Parameters Disciplines: Skilled Services 09/08/2022 Active 1 goal linked to scheduled/documen quinn intervention 1 goal intervention scheduled/document ed in this visit Risk for Falls Disciplines: Skilled Services 09/08/2022 Active 1 goal linked to scheduled/documen quinn intervention 1 goal intervention scheduled/document ed in this visit Oxygen Disciplines: Skilled Services 09/08/2022 Resolved on 10/14/2022 1 goal linked to scheduled/documen quinn intervention 1 goal intervention scheduled/document ed in this visit Discharge Disciplines: Skilled Services 09/08/2022 Active 1 goal linked to scheduled/documen quinn intervention 1 goal intervention scheduled/document ed in this visit SN Respiratory Disease Disciplines: SN 09/08/2022 Active 1 goal linked to scheduled/documen quinn intervention 1 goal intervention scheduled/document ed in this visit SN Learning Assessment Disciplines: SN 09/08/2022 Active 1 goal linked to scheduled/documen quinn intervention 1 goal intervention scheduled/document ed in this visit Goals Goal Associated Problem Outcome Goal Met? Visit Notes Patient/caregiver will demonstrate ability to obtain, store, identify and administer ordered medications, keep accurate medication list in home, and adhere to medication schedule Description: Patient/caregiver will demonstrate ability to obtain, store, identify and administer ordered medications, keep accurate medication list in home, and adhere to medication schedule by 11/06/22. Medication Education In Progress No Patient/caregiver will be able to identify and report symptoms of sepsis Description: Patient/caregiver will be able to identify signs/symptoms of sepsis infection and will verbalize actions to take if suspected by 11/06/22. Sepsis In Progress No Patient to maintain parameters within physician-specified ranges throughout certification period Physician Specific Parameters In Progress No Manage Risk for falls Description: Patient/caregiver will verbalize knowledge of individualized fall prevention strategies by 11/06/22. Risk for Falls In Progress No Manage oxygen Description: Patient/caregiver will use oxygen safely and effectively in home by verbalizing and demonstrating oxygen safety by 11/06/22. Oxygen Completed Yes Manage discharge planning Description: Patient/caregiver will verbalize understanding of ongoing discharge plan provided related to disease management, arrangements for outpatient and/or community services, obtaining medications, supplies, and DME, as needed throughout certification period. Discharge In Progress No Improved management of respiratory condition Description: Improve respiratory management as evidenced by patient/caregiver's ability to teach back strategies for improving respiratory status by 11/06/22. SN Respiratory Disease In Progress No Demonstrate understanding of education Description: Patient and/or caregiver will verbalize understanding of educational instruction provided throughout certification period. SN Learning Assessment In Progress No Interventions Intervention Associated Problem/Goal Status Variance Visit Notes Medication Education Description: Evaluate/instruct patient/caregiver on obtaining, storing, identifying and administering ordered medications as well as keeping accurate medication list in the home and adhereing to medication schedule Problem:Medication Education Goal:Patient/caregive r will demonstrate ability to obtain, store, identify and administer ordered medications, keep accurate medication list in home, and adhere to medication schedule Completed Patient instructed on adhering to medication schedule. Risk of Sepsis Description: Patient is at risk for sepsis. Monitor closely for s/s of sepsis. Problem:Sepsis Goal:Patient/caregive r will be able to identify and report symptoms of sepsis Completed SPO2 Description: Notify Dr. Otilia Lopez MD if pulse ox is <92% at rest. Problem:Physician Specific Parameters Goal:Patient to maintain parameters within physician-specified ranges throughout certification period Completed Instruct on individual fall risk factors and strategies to prevent falls and injuries caused by falls. Problem:Risk for Falls Goal:Manage Risk for falls Completed SN: Patient instructed on Eliminating Environmental Hazards: Keep pathways clear and Keep rooms and walkways well lit Instruct on fire safety and safe and effective use of oxygen in the home Problem:Oxygen Goal:Manage oxygen Completed patient and caregiver instructed on: findings of safety risk assessment, causes of fires, firerisks for neighboring residences and buildings, precautions that can prevent fire-related injuries, oxygen safety as outlined in Home Care Patient Handbook and recommendations for specific safety risks identified in the home: implementation of no-smoking policy in home, including e-cigarettes and posting of No-Smoking signs on entrance doors patient and caregiver demonstrate compliance with safety recommendations. Instruct on ongoing discharge plan Problem:Discharge Goal:Manage discharge planning Completed Ongoing Discharge plan: Discharge plan discussed with patient including frequency and duration for home SN and plan for transition to: cardiac/pulmonary rehab. Instruct on respiratory disease process and management of condition Description: Patient has following respiratory diagnosis(es): pneumothorax Problem:SN Respiratory Disease Goal:Improved management of respiratory condition Completed patient assessed and reinforced on respiratory disease process, self monitoring & symptom reporting and breathing management techniques: pursed lip breathing and use of incentive spirometer. Instruct and educate on knowledge deficits Problem:SN Learning Assessment Goal:Demonstrate understanding of education Completed patient and caregiver verbalize and/or demonstrate understanding of nursing education completed today. Education methods include: verbal cues. Further education required to improve knowledge and compliance with fall prevention/home safety strategies, medication management, nutrition, oxygen safety and pulmonary disease management. documented in this [facility] Plan of care note* Visit Details Visit Type -ZIPPER SETTER ROUTINE Discipline -Physical Therapy Problems Problem Description Start Date Status Goals Interve ntions Medication Education Disciplines: Skilled Services 09/08/2022 Active 1 goal linked to scheduled/document ed intervention 1 goal intervention scheduled/document ed in this visit Sepsis Disciplines: Skilled Services 09/08/2022 Active 1 goal linked to scheduled/document ed intervention 1 goal intervention scheduled/document ed in this visit Physician Specific Parameters Disciplines: Skilled Services 09/08/2022 Active 1 goal linked to scheduled/document ed intervention 1 goal intervention scheduled/document ed in this visit Risk for Falls Disciplines: Skilled Services 09/08/2022 Active 1 goal linked to scheduled/document ed intervention 1 goal intervention scheduled/document ed in this visit Oxygen Disciplines: Skilled Services 09/08/2022 Resolved on 10/14/2022 1 goal linked to scheduled/document ed intervention 1 goal intervention scheduled/document ed in this visit Discharge Disciplines: Skilled Services 09/08/2022 Active 1 goal linked to scheduled/document ed intervention 1 goal intervention scheduled/document ed in this visit PT Impaired muscle performance and/or ROM Disciplines: PT 09/13/2022 Active 1 goal linked to scheduled/document ed intervention 1 goal intervention scheduled/document ed in this visit PT Impaired gait Disciplines: PT 09/13/2022 Active 2 goals linked to scheduled/document ed interventions 2 goal interventions scheduled/document ed in this visit PT Learning Assessment Disciplines: PT 09/13/2022 Active 1 goal linked to scheduled/document ed intervention 1 goal intervention scheduled/document ed in this visit PT Pulmonary Disease Disciplines: PT 09/13/2022 Active 1 goal linked to scheduled/document ed intervention 1 goal intervention scheduled/document ed in this visit Goals Goal Associated Problem Outcome Goal Met? Visit Notes Patient/caregiver will demonstrate ability to obtain, store, identify and administer ordered medications, keep accurate medication list in home, and adhere to medication schedule Description: Patient/caregiver will demonstrate ability to obtain, store, identify and administer ordered medications, keep accurate medication list in home, and adhere to medication schedule by 11/06/22. Medication Education No Patient/caregiver will be able to identify and report symptoms of sepsis Description: Patient/caregiver will be able to identify signs/symptoms of sepsis infection and will verbalize actions to take if suspected by 11/06/22. Sepsis No Patient to maintain parameters within physician-specified ranges throughout certification period Physician Specific Parameters No Manage Risk for falls Description: Patient/caregiver will verbalize knowledge of individualized fall prevention strategies by 11/06/22. Risk for Falls No Manage oxygen Description: Patient/caregiver will use oxygen safely and effectively in home by verbalizing and demonstrating oxygen safety by 11/06/22. Oxygen No Manage discharge planning Description: Patient/caregiver will verbalize understanding of ongoing discharge plan provided related to disease management, arrangements for outpatient and/or community services, obtaining medications, supplies, and DME, as needed throughout certification period. Discharge No Improved Muscle Performance and/or ROM Description: LTG: Patient will demonstrate improved muscle performance to meet functional goals as evidenced by ability to tolerate 10 min of standing activity, to be achieved by 10/01/22.. reassessment completed - new achieve by date of 10/29/22 STG: Patient and/or caregiver will verbalize/demonstrate independence with home exercise program, to improve functional mobility, to be achieved by 09/17/22. reassessment completed - new achieve by date of 10/29/22 PT Impaired muscle performance and/or ROM No Improved Stair Climbing Description: LTG: Patient will demonstrate improved stair negotiation as evidenced by ascend/descend 12 steps with railing independently, to safely access all areas of the home, to be achieved by 10/01/22.. reassessment completed - new achieve by date of 10/29/22 PT Impaired gait No Improved Gait Description: LTG: Patient will demonstrate improved gait ability as evidenced by ambulation 300 feet with no device independently, to return to safe household and community ambulation, in order to return to [facility], to be achieved by 10/01/22.. reassessment completed - new achieve by date of 10/29/22 PT Impaired gait No Demonstrate understanding of education Description: Patient and/or caregiver will understand educational instruction to be achieved by 10/01/22.. reassessment completed - new achieve by date of 10/29/22 PT Learning Assessment No Manage Primary Pulmonary Disease Description: Improve patient and/or caregiver understanding of primary pulmonary disease as evidenced by patient and/or caregiver able to verbalize, demonstrate, and teach back instruction, to be achieved by 10/01/22.. reassessment completed - new achieve by date of 10/29/22 PT Pulmonary Disease No Interventions Intervention Associated Problem/Goal Status Variance Visit Notes Medication Education Description: Evaluate/instruct patient/caregiver on obtaining, storing, identifying and administering ordered medications as well as keeping accurate medication list in the home and adhereing to medication schedule Problem:Medication Education Goal:Patient/caregive r will demonstrate ability to obtain, store, identify and administer ordered medications, keep accurate medication list in home, and adhere to medication schedule Completed Patient instructed on importance of keeping accurate medication list in home and adhering to medication schedule. Risk of Sepsis Description: Patient is at risk for sepsis. Monitor closely for s/s of sepsis. Problem:Sepsis Goal:Patient/caregive r will be able to identify and report symptoms of sepsis Completed SPO2 Description: Notify Dr. Otilia Lopez MD if pulse ox is <92% at rest. Problem:Physician Specific Parameters Goal:Patient to maintain parameters within physician-specified ranges throughout certification period Completed Instruct on individual fall risk factors and strategies to prevent falls and injuries caused by falls. Problem:Risk for Falls Goal:Manage Risk for falls Completed PT: Patient instructed on Eliminating Environmental Hazards: Keep pathways clear and Keep pets out of pathways Instruct on fire safety and safe and effective use of oxygen in the home Problem:Oxygen Goal:Manage oxygen Completed patient instructed on: causes of fires patient demonstrate non compliance with safety recommendations. Instruct on ongoing discharge plan Problem:Discharge Goal:Manage discharge planning Completed Ongoing Discharge plan: Discharge plan discussed with patient including frequency and duration for home PT and plan for transition to: caregiver assistance. Physical Therapy Therapeutic Exercises Problem:PT Impaired muscle performance and/or ROM Goal:Improved Muscle Performance and/or ROM Completed patient instructed on strengthening exercises including step ups xs 10 each, standing heel toe raises, hip abd and flexion, hamstring curls and mini sits x's 15each restorator x's 10minwith verbal cues for posture. patient instructed to perform home exercise program twice a day which included above exercises . Physical Therapy Stair Training Problem:PT Impaired gait Goal:Improved Stair Climbing Completed Stair training and instruction to patient on safe stair climbing, ascend/descend step ups steps, with railing with supervision and verbal cues for safety. Physical Therapy Gait Training Problem:PT Impaired gait Goal:Improved Gait Completed Gait training and instruction to patient on safe ambulation with no device for 3x's 25 feet with stand by assist, with verbal cues for corrections of gait deviations including o2 tubing management. Instruct and educate on knowledge deficits Problem:PT Learning Assessment Goal:Demonstrate understanding of education Completed patient verbalize and/or demonstrate understanding of physical therapy education including oxygen safety and home exercise program. Education methods include: verbal cues. Further education required to improve knowledge and compliance with home exercise program. Instruct on signs, symptoms, and management of primary pulmonary disease Problem:PT Pulmonary Disease Goal:Manage Primary Pulmonary Disease Completed patient instructed on energy conservation, breathing management and instructed on when to call provider. documented in this encounter [facility]'s home Plan of care note* Visit Details Visit Type -ZIPPER SETTER ROUTINE Discipline -Physical Therapy Problems Problem Description Start Date Status Goals Interve ntions Medication Education Disciplines: Skilled Services 09/08/2022 Active 1 goal linked to scheduled/document ed intervention 1 goal intervention scheduled/document ed in this visit Sepsis Disciplines: Skilled Services 09/08/2022 Active 1 goal linked to scheduled/document ed intervention 1 goal intervention scheduled/document ed in this visit Physician Specific Parameters Disciplines: Skilled Services 09/08/2022 Active 1 goal linked to scheduled/document ed intervention 1 goal intervention scheduled/document ed in this visit Risk for Falls Disciplines: Skilled Services 09/08/2022 Active 1 goal linked to scheduled/document ed intervention 1 goal intervention scheduled/document ed in this visit Discharge Disciplines: Skilled Services 09/08/2022 Active 1 goal linked to scheduled/document ed intervention 1 goal intervention scheduled/document ed in this visit PT Impaired Aerobic Capacity Disciplines: PT 09/13/2022 Active 1 goal linked to scheduled/document ed intervention 1 goal intervention scheduled/document ed in this visit PT Impaired muscle performance and/or ROM Disciplines: PT 09/13/2022 Active 1 goal linked to scheduled/document ed intervention 1 goal intervention scheduled/document ed in this visit PT Impaired gait Disciplines: PT 09/13/2022 Active 2 goals linked to scheduled/document ed interventions 2 goal interventions scheduled/document ed in this visit PT Impaired balance Disciplines: PT 09/13/2022 Active 1 goal linked to scheduled/document ed intervention 1 goal intervention scheduled/document ed in this visit PT Learning Assessment Disciplines: PT 09/13/2022 Active 1 goal linked to scheduled/document ed intervention 1 goal intervention scheduled/document ed in this visit PT Pulmonary Disease Disciplines: PT 09/13/2022 Active 1 goal linked to scheduled/document ed intervention 1 goal intervention scheduled/document ed in this visit Goals Goal Associated Problem Outcome Goal Met? Visit Notes Patient/caregiver will demonstrate ability to obtain, store, identify and administer ordered medications, keep accurate medication list in home, and adhere to medication schedule Description: Patient/caregiver will demonstrate ability to obtain, store, identify and administer ordered medications, keep accurate medication list in home, and adhere to medication schedule by 11/06/22. Medication Education No Patient/caregiver will be able to identify and report symptoms of sepsis Description: Patient/caregiver will be able to identify signs/symptoms of sepsis infection and will verbalize actions to take if suspected by 11/06/22. Sepsis No Patient to maintain parameters within physician-specified ranges throughout certification period Physician Specific Parameters No Manage Risk for falls Description: Patient/caregiver will verbalize knowledge of individualized fall prevention strategies by 11/06/22. Risk for Falls No Manage discharge planning Description: Patient/caregiver will verbalize understanding of ongoing discharge plan provided related to disease management, arrangements for outpatient and/or community services, obtaining medications, supplies, and DME, as needed throughout certification period. Discharge No Improved Aerobic Capacity Description: LTG: Patient will demonstrate improved aerobic capacity to meet functional goals as evidenced by the abilit yto complete a 2 Minute Walk Test to be achieved by 10/01/22. reassessment completed - new achieve by date of 10/29/22 LTG: Patient will demonstrate improved aerobic capacity to meet functional goals as evidenced by Rate of Percieved Exertion (RPE) of 3/10 during walking activity, to be achieved by 10/01/22. reassessment completed - new achieve by date of 10/29/22 PT Impaired Aerobic Capacity No Improved Muscle Performance and/or ROM Description: LTG: Patient will demonstrate improved muscle performance to meet functional goals as evidenced by ability to tolerate 10 min of standing activity, to be achieved by 10/01/22.. reassessment completed - new achieve by date of 10/29/22 STG: Patient and/or caregiver will verbalize/demonstrate independence with home exercise program, to improve functional mobility, to be achieved by 09/17/22. reassessment completed - new achieve by date of 10/29/22 PT Impaired muscle performance and/or ROM No Improved Stair Climbing Description: LTG: Patient will demonstrate improved stair negotiation as evidenced by ascend/descend 12 steps with railing independently, to safely access all areas of the home, to be achieved by 10/01/22.. reassessment completed - new achieve by date of 10/29/22 PT Impaired gait No Improved Gait Description: LTG: Patient will demonstrate improved gait ability as evidenced by ambulation 300 feet with no device independently, to return to safe household and community ambulation, in order to return to [facility], to be achieved by 10/01/22.. reassessment completed - new achieve by date of 10/29/22 PT Impaired gait No Improved Balance Description: LTG: Patient will demonstrate improved standing balance to meet functional goals as evidenced by TUG score of <18 to be achieved by 10/01/22.. reassessment completed - new achieve by date of 10/29/22 PT Impaired balance No Demonstrate understanding of education Description: Patient and/or caregiver will understand educational instruction to be achieved by 10/01/22.. reassessment completed - new achieve by date of 10/29/22 PT Learning Assessment No Manage Primary Pulmonary Disease Description: Improve patient and/or caregiver understanding of primary pulmonary disease as evidenced by patient and/or caregiver able to verbalize, demonstrate, and teach back instruction, to be achieved by 10/01/22.. reassessment completed - new achieve by date of 10/29/22 PT Pulmonary Disease No Interventions Intervention Associated Problem/Goal Status Variance Visit Notes Medication Education Description: Evaluate/instruct patient/caregiver on obtaining, storing, identifying and administering ordered medications as well as keeping accurate medication list in the home and adhereing to medication schedule Problem:Medication Education Goal:Patient/caregive r will demonstrate ability to obtain, store, identify and administer ordered medications, keep accurate medication list in home, and adhere to medication schedule Completed Patient instructed on importance of keeping accurate medication list in home and adhering to medication schedule. Risk of Sepsis Description: Patient is at risk for sepsis. Monitor closely for s/s of sepsis. Problem:Sepsis Goal:Patient/caregive r will be able to identify and report symptoms of sepsis Completed SPO2 Description: Notify Dr. Otilia Lopez MD if pulse ox is <92% at rest. Problem:Physician Specific Parameters Goal:Patient to maintain parameters within physician-specified ranges throughout certification period Completed Instruct on individual fall risk factors and strategies to prevent falls and injuries caused by falls. Problem:Risk for Falls Goal:Manage Risk for falls Completed PT: Patient instructed on Eliminating Environmental Hazards: Keep pathways clear and Keep pets out of pathways Instruct on ongoing discharge plan Problem:Discharge Goal:Manage discharge planning Completed Ongoing Discharge plan: Discharge plan discussed with patient including frequency and duration for home PT and plan for transition to: live independently at home without ongoing services. Physical Therapy Aerobic Capacity Training Problem:PT Impaired Aerobic Capacity Goal:Improved Aerobic Capacity Completed patient instructed on utilization of the Rate of Percieved Exertion (RPE) scale, to not exceed 3-6/10 indicating moderate to heavy intensity of activity. Developed, implemented, and instructed patient on physical therapy interventions completing 10 minutes of continuous activity. Physical Therapy Therapeutic Exercises Problem:PT Impaired muscle performance and/or ROM Goal:Improved Muscle Performance and/or ROM Completed patient instructed on strengthening exercises including step ups x's 10 each, standing yellow tband mid and low rows x's 10each. standing heel toe raises, hip abd , ext and flexion, hamstring curls and mini sits x's 15 each. restorator x's 10min with verbal, tactile and visual cues for upright posture . patient instructed to perform home exercise program twice a day which included above exercises . Physical Therapy Stair Training Problem:PT Impaired gait Goal:Improved Stair Climbing Completed Stair training and instruction to patient on safe stair climbing, ascend/descend 1 step for step ups x's 10neach Physical Therapy Gait Training Problem:PT Impaired gait Goal:Improved Gait Completed Gait training and instruction to patient on safe ambulation with no device for 4x's 25 feet with supervision, with verbal cues for corrections of gait deviations including holding head up to encourage deep breathing . Physical Therapy Balance Training Problem:PT Impaired balance Goal:Improved Balance Completed Developed, implemented, and instructed patient on standing balance exercises including unsupported standing . Instruct and educate on knowledge deficits Problem:PT Learning Assessment Goal:Demonstrate understanding of education Completed patient verbalize and/or demonstrate understanding of physical therapy education including oxygen safety and home exercise program. Education methods include: verbal cues. Further education required to improve knowledge and compliance with home exercise program. Instruct on signs, symptoms, and management of primary pulmonary disease Problem:PT Pulmonary Disease Goal:Manage Primary Pulmonary Disease Completed patient instructed on energy conservation, breathing management and instructed on when to call provider. documented in this encounter [facility]'s home Plan of care note* Visit Details Visit Type -SN ROUTINE Discipline -[facility] Problems Problem Description Start Date Status Goals Interve ntions Medication Education Disciplines: Skilled Services 09/08/2022 Active 1 goal linked to scheduled/document ed intervention 1 goal intervention scheduled/document ed in this visit Sepsis Disciplines: Skilled Services 09/08/2022 Active 1 goal linked to scheduled/document ed intervention 1 goal intervention scheduled/document ed in this visit Physician Specific Parameters Disciplines: Skilled Services 09/08/2022 Active 1 goal linked to scheduled/document ed intervention 1 goal intervention scheduled/document ed in this visit Risk for Falls Disciplines: Skilled Services 09/08/2022 Active 1 goal linked to scheduled/document ed intervention 1 goal intervention scheduled/document ed in this visit Discharge Disciplines: Skilled Services 09/08/2022 Active 1 goal linked to scheduled/document ed intervention 2 goal interventions scheduled/document ed in this visit SN Respiratory Disease Disciplines: SN 09/08/2022 Active 1 goal linked to scheduled/document ed intervention 1 goal intervention scheduled/document ed in this visit SN Learning Assessment Disciplines: SN 09/08/2022 Active 1 goal linked to scheduled/document ed intervention 1 goal intervention scheduled/document ed in this visit Goals Goal Associated Problem Outcome Goal Met? Visit Notes Patient/caregiver will demonstrate ability to obtain, store, identify and administer ordered medications, keep accurate medication list in home, and adhere to medication schedule Description: Patient/caregiver will demonstrate ability to obtain, store, identify and administer ordered medications, keep accurate medication list in home, and adhere to medication schedule by 11/06/22. Medication Education No Patient/caregiver will be able to identify and report symptoms of sepsis Description: Patient/caregiver will be able to identify signs/symptoms of sepsis infection and will verbalize actions to take if suspected by 11/06/22. Sepsis No Patient to maintain parameters within physician-specified ranges throughout certification period Physician Specific Parameters No Manage Risk for falls Description: Patient/caregiver will verbalize knowledge of individualized fall prevention strategies by 11/06/22. Risk for Falls No Manage discharge planning Description: Patient/caregiver will verbalize understanding of ongoing discharge plan provided related to disease management, arrangements for outpatient and/or community services, obtaining medications, supplies, and DME, as needed throughout certification period. Discharge No Improved management of respiratory condition Description: Improve respiratory management as evidenced by patient/caregiver's ability to teach back strategies for improving respiratory status by 11/06/22. SN Respiratory Disease No Demonstrate understanding of education Description: Patient and/or caregiver will verbalize understanding of educational instruction provided throughout certification period. SN Learning Assessment No Interventions Intervention Associated Problem/Goal Status Variance Visit Notes Medication Education Description: Evaluate/instruct patient/caregiver on obtaining, storing, identifying and administering ordered medications as well as keeping accurate medication list in the home and adhereing to medication schedule Problem:Medication Education Goal:Patient/caregive r will demonstrate ability to obtain, store, identify and administer ordered medications, keep accurate medication list in home, and adhere to medication schedule Completed Patient and Caregiver instructed on importance of keeping accurate medication list in home and adhering to medication schedule. Risk of Sepsis Description: Patient is at risk for sepsis. Monitor closely for s/s of sepsis. Problem:Sepsis Goal:Patient/caregive r will be able to identify and report symptoms of sepsis Completed SPO2 Description: Notify Dr. Otilia Lopez MD if pulse ox is <92% at rest. Problem:Physician Specific Parameters Goal:Patient to maintain parameters within physician-specified ranges throughout certification period Completed Instruct on individual fall risk factors and strategies to prevent falls and injuries caused by falls. Problem:Risk for Falls Goal:Manage Risk for falls Completed SN: Patient instructed on Eliminating Environmental Hazards: Keep pathways clear, Keep pets out of pathways, Remove unsafe rugs, Keep rooms and walkways well lit, Wear supportive shoes or non-skid socks and Keep frequently used items within reach Deliver [facility] Problem:Discharge Goal:Manage discharge planning Completed Delivered [facility] on 10/19/22 for discharge date of 10/25/22. Instruct on ongoing discharge plan Problem:Discharge Goal:Manage discharge planning Completed Ongoing Discharge plan: Discharge plan discussed with patient and caregiver including frequency and duration for home SN and plan for transition to: live independently at home without ongoing services. Instruct on respiratory disease process and management of condition Description: Patient has following respiratory diagnosis(es): pneumothorax Problem:SN Respiratory Disease Goal:Improved management of respiratory condition Completed patient assessed and instructed on respiratory disease process and self monitoring & symptom reporting. Instruct and educate on knowledge deficits Problem:SN Learning Assessment Goal:Demonstrate understanding of education Completed patient verbalize and/or demonstrate understanding of nursing education completed today. Education methods include: verbal cues. Further education required to improve knowledge and compliance with fall prevention/home safety strategies, medication management, nutrition, oxygen safety and pulmonary disease management. documented in this encounter [facility]'s home Plan of care note* Visit Details Visit Type -ZIPPER SETTER ROUTINE Discipline -Physical Therapy Problems Problem Description Start Date Status Goals Interve ntions Medication Education Disciplines: Skilled Services 09/08/2022 Active 1 goal linked to scheduled/document ed intervention 1 goal intervention scheduled/document ed in this visit Sepsis Disciplines: Skilled Services 09/08/2022 Active 1 goal linked to scheduled/document ed intervention 1 goal intervention scheduled/document ed in this visit Physician Specific Parameters Disciplines: Skilled Services 09/08/2022 Active 1 goal linked to scheduled/document ed intervention 1 goal intervention scheduled/document ed in this visit Risk for Falls Disciplines: Skilled Services 09/08/2022 Active 1 goal linked to scheduled/document ed intervention 1 goal intervention scheduled/document ed in this visit Discharge Disciplines: Skilled Services 09/08/2022 Active 1 goal linked to scheduled/document ed intervention 1 goal intervention scheduled/document ed in this visit PT Impaired Aerobic Capacity Disciplines: PT 09/13/2022 Active 1 goal linked to scheduled/document ed intervention 1 goal intervention scheduled/document ed in this visit PT Impaired muscle performance and/or ROM Disciplines: PT 09/13/2022 Active 1 goal linked to scheduled/document ed intervention 1 goal intervention scheduled/document ed in this visit PT Impaired gait Disciplines: PT 09/13/2022 Active 2 goals linked to scheduled/document ed interventions 2 goal interventions scheduled/document ed in this visit PT Impaired balance Disciplines: PT 09/13/2022 Active 1 goal linked to scheduled/document ed intervention 1 goal intervention scheduled/document ed in this visit PT Learning Assessment Disciplines: PT 09/13/2022 Active 1 goal linked to scheduled/document ed intervention 1 goal intervention scheduled/document ed in this visit PT Pulmonary Disease Disciplines: PT 09/13/2022 Active 1 goal linked to scheduled/document ed intervention 1 goal intervention scheduled/document ed in this visit Goals Goal Associated Problem Outcome Goal Met? Visit Notes Patient/caregiver will demonstrate ability to obtain, store, identify and administer ordered medications, keep accurate medication list in home, and adhere to medication schedule Description: Patient/caregiver will demonstrate ability to obtain, store, identify and administer ordered medications, keep accurate medication list in home, and adhere to medication schedule by 11/06/22. Medication Education No Patient/caregiver will be able to identify and report symptoms of sepsis Description: Patient/caregiver will be able to identify signs/symptoms of sepsis infection and will verbalize actions to take if suspected by 11/06/22. Sepsis No Patient to maintain parameters within physician-specified ranges throughout certification period Physician Specific Parameters No Manage Risk for falls Description: Patient/caregiver will verbalize knowledge of individualized fall prevention strategies by 11/06/22. Risk for Falls No Manage discharge planning Description: Patient/caregiver will verbalize understanding of ongoing discharge plan provided related to disease management, arrangements for outpatient and/or community services, obtaining medications, supplies, and DME, as needed throughout certification period. Discharge No Improved Aerobic Capacity Description: LTG: Patient will demonstrate improved aerobic capacity to meet functional goals as evidenced by the abilit yto complete a 2 Minute Walk Test to be achieved by 10/01/22. reassessment completed - new achieve by date of 10/29/22 LTG: Patient will demonstrate improved aerobic capacity to meet functional goals as evidenced by Rate of Percieved Exertion (RPE) of 3/10 during walking activity, to be achieved by 10/01/22. reassessment completed - new achieve by date of 10/29/22 PT Impaired Aerobic Capacity No Improved Muscle Performance and/or ROM Description: LTG: Patient will demonstrate improved muscle performance to meet functional goals as evidenced by ability to tolerate 10 min of standing activity, to be achieved by 10/01/22.. reassessment completed - new achieve by date of 10/29/22 STG: Patient and/or caregiver will verbalize/demonstrate independence with home exercise program, to improve functional mobility, to be achieved by 09/17/22. reassessment completed - new achieve by date of 10/29/22 PT Impaired muscle performance and/or ROM No Improved Stair Climbing Description: LTG: Patient will demonstrate improved stair negotiation as evidenced by ascend/descend 12 steps with railing independently, to safely access all areas of the home, to be achieved by 10/01/22.. reassessment completed - new achieve by date of 10/29/22 PT Impaired gait No Improved Gait Description: LTG: Patient will demonstrate improved gait ability as evidenced by ambulation 300 feet with no device independently, to return to safe household and community ambulation, in order to return to [facility], to be achieved by 10/01/22.. reassessment completed - new achieve by date of 10/29/22 PT Impaired gait No Improved Balance Description: LTG: Patient will demonstrate improved standing balance to meet functional goals as evidenced by TUG score of <18 to be achieved by 10/01/22.. reassessment completed - new achieve by date of 10/29/22 PT Impaired balance No Demonstrate understanding of education Description: Patient and/or caregiver will understand educational instruction to be achieved by 10/01/22.. reassessment completed - new achieve by date of 10/29/22 PT Learning Assessment No Manage Primary Pulmonary Disease Description: Improve patient and/or caregiver understanding of primary pulmonary disease as evidenced by patient and/or caregiver able to verbalize, demonstrate, and teach back instruction, to be achieved by 10/01/22.. reassessment completed - new achieve by date of 10/29/22 PT Pulmonary Disease No Interventions Intervention Associated Problem/Goal Status Variance Visit Notes Medication Education Description: Evaluate/instruct patient/caregiver on obtaining, storing, identifying and administering ordered medications as well as keeping accurate medication list in the home and adhereing to medication schedule Problem:Medication Education Goal:Patient/caregive r will demonstrate ability to obtain, store, identify and administer ordered medications, keep accurate medication list in home, and adhere to medication schedule Completed Patient and Caregiver instructed on importance of keeping accurate medication list in home and adhering to medication schedule. Risk of Sepsis Description: Patient is at risk for sepsis. Monitor closely for s/s of sepsis. Problem:Sepsis Goal:Patient/caregive r will be able to identify and report symptoms of sepsis Completed SPO2 Description: Notify Dr. Otilia Lopez MD if pulse ox is <92% at rest. Problem:Physician Specific Parameters Goal:Patient to maintain parameters within physician-specified ranges throughout certification period Completed Instruct on individual fall risk factors and strategies to prevent falls and injuries caused by falls. Problem:Risk for Falls Goal:Manage Risk for falls Completed PT: Patient and Caregiver instructed on Eliminating Environmental Hazards: Keep pathways clear and Keep pets out of pathways Instruct on ongoing discharge plan Problem:Discharge Goal:Manage discharge planning Completed Ongoing Discharge plan: Discharge plan discussed with patient including frequency and duration for home PT and plan for transition to: caregiver assistance. Physical Therapy Aerobic Capacity Training Problem:PT Impaired Aerobic Capacity Goal:Improved Aerobic Capacity Completed patient and caregiver instructed on utilization of the Rate of Percieved Exertion (RPE) scale, to not exceed 3-6/10 indicating moderate to heavy intensity of activity. Developed, implemented, and instructed patient and caregiver on physical therapy interventions completing 20 minutes of continuous activity. Physical Therapy Therapeutic Exercises Problem:PT Impaired muscle performance and/or ROM Goal:Improved Muscle Performance and/or ROM Completed patient and caregiver instructed on strengthening exercises including standing heel toe raises, hip abd and flexion, hamstring curls, mini sits x's 15 each. step ups x's 10 each. yellow tband mid and low rows, horiz abd x's 10 each restorator x's 10min with verbal and visual cues for holding head up throughout. patient instructed to perform home exercise program twice a day which included above exercises . Physical Therapy Stair Training Problem:PT Impaired gait Goal:Improved Stair Climbing Completed Stair training and instruction to patient on safe stair climbing, ascend/descend 1 step for step ups with railing with supervision and verbal cues for head up. Physical Therapy Gait Training Problem:PT Impaired gait Goal:Improved Gait Completed Gait training and instruction to patient on safe ambulation with no device for 4x's 25 feet with supervision, with verbal cues for corrections of gait deviations including managig O2 tubing . Physical Therapy Balance Training Problem:PT Impaired balance Goal:Improved Balance Completed Developed, implemented, and instructed patient on standing balance exercises including oe taps x's 10 eachw/ unilateral support Instruct and educate on knowledge deficits Problem:PT Learning Assessment Goal:Demonstrate understanding of education Completed patient verbalize and/or demonstrate understanding of physical therapy education including home exercise program. Education methods include: verbal cues. Further education required to improve knowledge and compliance with home exercise program. Instruct on signs, symptoms, and management of primary pulmonary disease Problem:PT Pulmonary Disease Goal:Manage Primary Pulmonary Disease Completed patient instructed on energy conservation and instructed on when to call provider. [facility] Visit Details Visit Type -PT ROUTINE Discipline -Physical Therapy Problems Problem Description Start Date Status Goals Interve ntions Medication Education Disciplines: Skilled Services 09/08/2022 Active 1 goal linked to scheduled/document ed intervention 1 goal intervention scheduled/document ed in this visit Sepsis Disciplines: Skilled Services 09/08/2022 Active 1 goal linked to scheduled/document ed intervention 1 goal intervention scheduled/document ed in this visit Physician Specific Parameters Disciplines: Skilled Services 09/08/2022 Active 1 goal linked to scheduled/document ed intervention 1 goal intervention scheduled/document ed in this visit Risk for Falls Disciplines: Skilled Services 09/08/2022 Active 1 goal linked to scheduled/document ed intervention 1 goal intervention scheduled/document ed in this visit Discharge Disciplines: Skilled Services 09/08/2022 Active 1 goal linked to scheduled/document ed intervention 1 goal intervention scheduled/document ed in this visit PT Impaired Aerobic Capacity Disciplines: PT 09/13/2022 Active 1 goal linked to scheduled/document ed intervention 1 goal intervention scheduled/document ed in this visit PT Impaired muscle performance and/or ROM Disciplines: PT 09/13/2022 Active 1 goal linked to scheduled/document ed intervention 1 goal intervention scheduled/document ed in this visit PT Impaired gait Disciplines: PT 09/13/2022 Active 2 goals linked to scheduled/document ed interventions 2 goal interventions scheduled/document ed in this visit PT Learning Assessment Disciplines: PT 09/13/2022 Active 1 goal linked to scheduled/document ed intervention 1 goal intervention scheduled/document ed in this visit PT Pulmonary Disease Disciplines: PT 09/13/2022 Active 1 goal linked to scheduled/document ed intervention 1 goal intervention scheduled/document ed in this visit Goals Goal Associated Problem Outcome Goal Met? Visit Notes Patient/caregiver will demonstrate ability to obtain, store, identify and administer ordered medications, keep accurate medication list in home, and adhere to medication schedule Description: Patient/caregiver will demonstrate ability to obtain, store, identify and administer ordered medications, keep accurate medication list in home, and adhere to medication schedule by 11/06/22. Medication Education No Patient/caregiver will be able to identify and report symptoms of sepsis Description: Patient/caregiver will be able to identify signs/symptoms of sepsis infection and will verbalize actions to take if suspected by 11/06/22. Sepsis No Patient to maintain parameters within physician-specified ranges throughout certification period Physician Specific Parameters No Manage Risk for falls Description: Patient/caregiver will verbalize knowledge of individualized fall prevention strategies by 11/06/22. Risk for Falls No Manage discharge planning Description: Patient/caregiver will verbalize understanding of ongoing discharge plan provided related to disease management, arrangements for outpatient and/or community services, obtaining medications, supplies, and DME, as needed throughout certification period. Discharge No Improved Aerobic Capacity Description: LTG: Patient will demonstrate improved aerobic capacity to meet functional goals as evidenced by the abilit yto complete a 2 Minute Walk Test to be achieved by 10/01/22. reassessment completed - new achieve by date of 10/29/22 LTG: Patient will demonstrate improved aerobic capacity to meet functional goals as evidenced by Rate of Percieved Exertion (RPE) of 3/10 during walking activity, to be achieved by 10/01/22. reassessment completed - new achieve by date of 10/29/22 PT Impaired Aerobic Capacity No Improved Muscle Performance and/or ROM Description: LTG: Patient will demonstrate improved muscle performance to meet functional goals as evidenced by ability to tolerate 10 min of standing activity, to be achieved by 10/01/22.. reassessment completed - new achieve by date of 10/29/22 STG: Patient and/or caregiver will verbalize/demonstrate independence with home exercise program, to improve functional mobility, to be achieved by 09/17/22. reassessment completed - new achieve by date of 10/29/22 PT Impaired muscle performance and/or ROM No Improved Stair Climbing Description: LTG: Patient will demonstrate improved stair negotiation as evidenced by ascend/descend 12 steps with railing independently, to safely access all areas of the home, to be achieved by 10/01/22.. reassessment completed - new achieve by date of 10/29/22 PT Impaired gait No Improved Gait Description: LTG: Patient will demonstrate improved gait ability as evidenced by ambulation 300 feet with no device independently, to return to safe household and community ambulation, in order to return to plf, to be achieved by 10/01/22.. reassessment completed - new achieve by date of 10/29/22 PT Impaired gait No Demonstrate understanding of education Description: Patient and/or caregiver will understand educational instruction to be achieved by 10/01/22.. reassessment completed - new achieve by date of 10/29/22 PT Learning Assessment No Manage Primary Pulmonary Disease Description: Improve patient and/or caregiver understanding of primary pulmonary disease as evidenced by patient and/or caregiver able to verbalize, demonstrate, and teach back instruction, to be achieved by 10/01/22.. reassessment completed - new achieve by date of 10/29/22 PT Pulmonary Disease No Interventions Intervention Associated Problem/Goal Status Variance Visit Notes Medication Education Description: Evaluate/instruct patient/caregiver on obtaining, storing, identifying and administering ordered medications as well as keeping accurate medication list in the home and adhereing to medication schedule Problem:Medication Education Goal:Patient/careg iver will demonstrate ability to obtain, store, identify and administer ordered medications, keep accurate medication list in home, and adhere to medication schedule Completed Patient and Caregiver instructed on importance of keeping accurate medication list in home and adhering to medication schedule. Risk of Sepsis Description: Patient is at risk for sepsis. Monitor closely for s/s of sepsis. Problem:Sepsis Goal:Patient/careg iver will be able to identify and report symptoms of sepsis Completed SPO2 Description: Notify Dr. Otilia Lopez MD if pulse ox is <92% at rest. Problem:Physician Specific Parameters Goal:Patient to maintain parameters within physician-specifie d ranges throughout certification period Completed Instruct on individual fall risk factors and strategies to prevent falls and injuries caused by falls. Problem:Risk for Falls Goal:Manage Risk for falls Completed PT: Patient and Caregiver instructed on Eliminating Environmental Hazards: Keep pathways clear, Keep pets out of pathways, Remove unsafe rugs, Move furniture from pathways, Keep rooms and walkways well lit, Install hand rails/grab bars, Wear supportive shoes or non-skid socks and Keep frequently used items within reach Managing Impaired Functional Mobility: Modification of current activities: proper activity dosing, using good judgement, Use assistive device(s): Walker, Raised Toilet Seat and Bedside Commode and Caregiver to provide assist with: Ambulation, Steps, Transfers and ADL/IADLs Instruct on ongoing discharge plan Problem:Discharge Goal:Manage discharge planning Completed Ongoing Discharge plan: Discharge plan discussed with patient including frequency and duration for home PT and plan for transition to: cardiac/pulmonary rehab. Patient verbalizes next PT visit will be d/c. Physical Therapy Aerobic Capacity Training Problem:PT Impaired Aerobic Capacity Goal:Improved Aerobic Capacity Completed patient instructed on utilization of the Rate of Percieved Exertion (RPE) scale, to not exceed 3-6/10 indicating moderate to heavy intensity of activity. Developed, implemented, and instructed patient on physical therapy interventions completing 30 minutes of paced and physiologically monitored activity. Physical Therapy Therapeutic Exercises Problem:PT Impaired muscle performance and/or ROM Goal:Improved Muscle Performance and/or ROM Completed with variance Patient independent Patient demonstrated (I) today with HEP in standing at kitchen counter x 10-15 reps each - good pacing, self monitoring. He used yellow theraband for his UE exercises; CG is (I) with assisting the patient. PT observed his HEP today with initial reminders to self monitor, pace. He has his own pulse ox and demonstrated good ability to use it to check his SpO2, knowing to stop and deep breath through nose when dropping to lower 90s. Standing exercises today included: Heel rises, DF, knee flexion, hip abduction, hip flexion, mini squats. Also, after TB exercises, he did unilateral step exercises - stepping up/down 1 step x 15; He stood x 10 minutes without needing a sitting rest. VSS. After a brief sitting rest period - VSS- he used the theraband to do UE exercises with spouse giving him occasional cues. Physical Therapy Stair Training Problem:PT Impaired gait Goal:Improved Stair Climbing Completed Stair training and instruction to patient on safe stair climbing, ascend/descend 2 steps, with railing with supervision . Physical Therapy Gait Training Problem:PT Impaired gait Goal:Improved Gait Completed Gait training and instruction to patient on safe ambulation with no device for x household distances while managing O2 tubing with distant supervision and good tolerance today . Instruct and educate on knowledge deficits Problem:PT Learning Assessment Goal:Demonstrate understanding of education Completed patient and caregiver verbalize and/or demonstrate understanding of physical therapy education including pulmonary disease management, pain management, oxygen safety, fall prevention strategies, functional activity and home exercise program. Education methods include: verbal cues, written instructions and teach back. Further education required to improve knowledge and compliance with fall prevention strategies, functional activity and home exercise program. Instruct on signs, symptoms, and management of primary pulmonary disease Problem:PT Pulmonary Disease Goal:Manage Primary Pulmonary Disease Completed patient and caregiver instructed on exercise and activity guidelines and instructed on when to call provider. [facility] Visit Details Visit Type -SN ROUTINE Discipline -[facility] Problems Problem Description Start Date Status Goals Interve ntions Medication Education Disciplines: Skilled Services 09/08/2022 Active 1 goal linked to scheduled/document ed intervention 1 goal intervention scheduled/documente d in this visit Sepsis Disciplines: Skilled Services 09/08/2022 Active 1 goal linked to scheduled/document ed intervention 1 goal intervention scheduled/documente d in this visit Physician Specific Parameters Disciplines: Skilled Services 09/08/2022 Active 1 goal linked to scheduled/document ed intervention 1 goal intervention scheduled/documente d in this visit Risk for Falls Disciplines: Skilled Services 09/08/2022 Active 1 goal linked to scheduled/document ed intervention 1 goal intervention scheduled/documente d in this visit Discharge Disciplines: Skilled Services 09/08/2022 Active 1 goal linked to scheduled/document ed intervention 1 goal intervention scheduled/documente d in this visit SN Learning Assessment Disciplines: SN 09/08/2022 Active 1 goal linked to scheduled/document ed intervention 1 goal intervention scheduled/documente d in this visit Goals Goal Associated Problem Outcome Goal Met? Visit Notes Patient/caregiver will demonstrate ability to obtain, store, identify and administer ordered medications, keep accurate medication list in home, and adhere to medication schedule Description: Patient/caregiver will demonstrate ability to obtain, store, identify and administer ordered medications, keep accurate medication list in home, and adhere to medication schedule by 11/06/22. Medication Education No Patient/caregiver will be able to identify and report symptoms of sepsis Description: Patient/caregiver will be able to identify signs/symptoms of sepsis infection and will verbalize actions to take if suspected by 11/06/22. Sepsis No Patient to maintain parameters within physician-specified ranges throughout certification period Physician Specific Parameters No Manage Risk for falls Description: Patient/caregiver will verbalize knowledge of individualized fall prevention strategies by 11/06/22. Risk for Falls No Manage discharge planning Description: Patient/caregiver will verbalize understanding of ongoing discharge plan provided related to disease management, arrangements for outpatient and/or community services, obtaining medications, supplies, and DME, as needed throughout certification period. Discharge No Demonstrate understanding of education Description: Patient and/or caregiver will verbalize understanding of educational instruction provided throughout certification period. SN Learning Assessment No Interventions Intervention Associated Problem/Goal Status Variance Visit Notes Medication Education Description: Evaluate/instruct patient/caregiver on obtaining, storing, identifying and administering ordered medications as well as keeping accurate medication list in the home and adhereing to medication schedule Problem:Medication Education Goal:Patient/caregive r will demonstrate ability to obtain, store, identify and administer ordered medications, keep accurate medication list in home, and adhere to medication schedule Completed Patient instructed on importance of keeping accurate medication list in home, adhering to medication schedule and proper storage of medications. Risk of Sepsis Description: Patient is at risk for sepsis. Monitor closely for s/s of sepsis. Problem:Sepsis Goal:Patient/caregive r will be able to identify and report symptoms of sepsis Completed SPO2 Description: Notify Dr. Otilia Lopez MD if pulse ox is <92% at rest. Problem:Physician Specific Parameters Goal:Patient to maintain parameters within physician-specified ranges throughout certification period Completed Instruct on individual fall risk factors and strategies to prevent falls and injuries caused by falls. Problem:Risk for Falls Goal:Manage Risk for falls Completed SN: Patient instructed on Eliminating Environmental Hazards: Keep pathways clear, Keep pets out of pathways, Move furniture from pathways, Keep rooms and walkways well lit, Wear supportive shoes or non-skid socks and Keep frequently used items within reach Instruct on ongoing discharge plan Problem:Discharge Goal:Manage discharge planning Completed Ongoing Discharge plan: Discharge plan discussed with patient including frequency and duration for home SN and plan for transition to: caregiver assistance. Instruct and educate on knowledge deficits Problem:SN Learning Assessment Goal:Demonstrate understanding of education Completed patient verbalize and/or demonstrate understanding of nursing education completed today. Education methods include: verbal cues and visual cues. Further education required to improve knowledge and compliance with fall prevention/home safety strategies, medication management, nutrition and pulmonary disease management. [facility] Visit Details Visit Type -PT DISC DC W VIS IT Discipline -Physical Therapy Problems Problem Description Start Date Status Goals Interve ntions Medication Education Disciplines: Skilled Services 09/08/2022 Active 1 goal linked to scheduled/document ed intervention 1 goal intervention scheduled/document ed in this visit Sepsis Disciplines: Skilled Services 09/08/2022 Active 1 goal linked to scheduled/document ed intervention 1 goal intervention scheduled/document ed in this visit Physician Specific Parameters Disciplines: Skilled Services 09/08/2022 Active 1 goal linked to scheduled/document ed intervention 1 goal intervention scheduled/document ed in this visit Risk for Falls Disciplines: Skilled Services 09/08/2022 Active 1 goal linked to scheduled/document ed intervention 1 goal intervention scheduled/document ed in this visit PT Impaired Aerobic Capacity Disciplines: PT 09/13/2022 Resolved on 10/27/2022 1 goal linked to scheduled/document ed intervention 1 goal intervention scheduled/document ed in this visit PT Impaired muscle performance and/or ROM Disciplines: PT 09/13/2022 Resolved on 10/27/2022 1 goal linked to scheduled/document ed intervention 1 goal intervention scheduled/document ed in this visit PT Impaired gait Disciplines: PT 09/13/2022 Resolved on 10/27/2022 2 goals linked to scheduled/document ed interventions 2 goal interventions scheduled/document ed in this visit PT Impaired balance Disciplines: PT 09/13/2022 Resolved on 10/27/2022 1 goal linked to scheduled/document ed intervention 1 goal intervention scheduled/document ed in this visit PT Learning Assessment Disciplines: PT 09/13/2022 Resolved on 10/27/2022 1 goal linked to scheduled/document ed intervention 1 goal intervention scheduled/document ed in this visit PT Pulmonary Disease Disciplines: PT 09/13/2022 Resolved on 10/27/2022 1 goal linked to scheduled/document ed intervention 1 goal intervention scheduled/document ed in this visit Goals Goal Associated Problem Outcome Goal Met? Visit Notes Patient/caregiver will demonstrate ability to obtain, store, identify and administer ordered medications, keep accurate medication list in home, and adhere to medication schedule Description: Patient/caregiver will demonstrate ability to obtain, store, identify and administer ordered medications, keep accurate medication list in home, and adhere to medication schedule by 11/06/22. Medication Education No Patient/caregiver will be able to identify and report symptoms of sepsis Description: Patient/caregiver will be able to identify signs/symptoms of sepsis infection and will verbalize actions to take if suspected by 11/06/22. Sepsis No Patient to maintain parameters within physician-specified ranges throughout certification period Physician Specific Parameters No Manage Risk for falls Description: Patient/caregiver will verbalize knowledge of individualized fall prevention strategies by 11/06/22. Risk for Falls No Improved Aerobic Capacity Description: LTG: Patient will demonstrate improved aerobic capacity to meet functional goals as evidenced by the abilit yto complete a 2 Minute Walk Test to be achieved by 10/01/22. reassessment completed - new achieve by date of 10/29/22 LTG: Patient will demonstrate improved aerobic capacity to meet functional goals as evidenced by Rate of Percieved Exertion (RPE) of 3/10 during walking activity, to be achieved by 10/01/22. reassessment completed - new achieve by date of 10/29/22 PT Impaired Aerobic Capacity Completed Yes Improved Muscle Performance and/or ROM Description: LTG: Patient will demonstrate improved muscle performance to meet functional goals as evidenced by ability to tolerate 10 min of standing activity, to be achieved by 10/01/22.. reassessment completed - new achieve by date of 10/29/22 STG: Patient and/or caregiver will verbalize/demonstrate independence with home exercise program, to improve functional mobility, to be achieved by 09/17/22. reassessment completed - new achieve by date of 10/29/22 PT Impaired muscle performance and/or ROM Completed Yes Improved Stair Climbing Description: LTG: Patient will demonstrate improved stair negotiation as evidenced by ascend/descend 12 steps with railing independently, to safely access all areas of the home, to be achieved by 10/01/22.. reassessment completed - new achieve by date of 10/29/22 PT Impaired gait Completed Yes Improved Gait Description: LTG: Patient will demonstrate improved gait ability as evidenced by ambulation 300 feet with no device independently, to return to safe household and community ambulation, in order to return to [facility], to be achieved by 10/01/22.. reassessment completed - new achieve by date of 10/29/22 PT Impaired gait Completed Yes Improved Balance Description: LTG: Patient will demonstrate improved standing balance to meet functional goals as evidenced by TUG score of <18 to be achieved by 10/01/22.. reassessment completed - new achieve by date of 10/29/22 PT Impaired balance Completed Yes Demonstrate understanding of education Description: Patient and/or caregiver will understand educational instruction to be achieved by 10/01/22.. reassessment completed - new achieve by date of 10/29/22 PT Learning Assessment Completed Yes Manage Primary Pulmonary Disease Description: Improve patient and/or caregiver understanding of primary pulmonary disease as evidenced by patient and/or caregiver able to verbalize, demonstrate, and teach back instruction, to be achieved by 10/01/22.. reassessment completed - new achieve by date of 10/29/22 PT Pulmonary Disease Completed Yes Interventions Intervention Associated Problem/Goal Status Variance Visit Notes Medication Education Description: Evaluate/instruct patient/caregiver on obtaining, storing, identifying and administering ordered medications as well as keeping accurate medication list in the home and adhereing to medication schedule Problem:Medication Education Goal:Patient/caregive r will demonstrate ability to obtain, store, identify and administer ordered medications, keep accurate medication list in home, and adhere to medication schedule Completed Patient instructed on importance of keeping accurate medication list in home. Risk of Sepsis Description: Patient is at risk for sepsis. Monitor closely for s/s of sepsis. Problem:Sepsis Goal:Patient/caregive r will be able to identify and report symptoms of sepsis Completed SPO2 Description: Notify Dr. Otilia Lopez MD if pulse ox is <92% at rest. Problem:Physician Specific Parameters Goal:Patient to maintain parameters within physician-specified ranges throughout certification period Completed Instruct on individual fall risk factors and strategies to prevent falls and injuries caused by falls. Problem:Risk for Falls Goal:Manage Risk for falls Completed PT: Patient instructed on Eliminating Environmental Hazards: Keep pathways clear, Keep pets out of pathways, Remove unsafe rugs, Move furniture from pathways and safe management of O2 tubing Physical Therapy Aerobic Capacity Training Problem:PT Impaired Aerobic Capacity Goal:Improved Aerobic Capacity Completed patient instructed on utilization of the Rate of Percieved Exertion (RPE) scale, to not exceed 3-6/10 indicating moderate to heavy intensity of activity. Developed, implemented, and instructed patient on physical therapy interventions completing 10 minutes of continuous, paced and physiologically monitored activity. Physical Therapy Therapeutic Exercises Problem:PT Impaired muscle performance and/or ROM Goal:Improved Muscle Performance and/or ROM Completed patient and caregiver instructed on strengthening exercises including standing heel toe raises, hip abd and flexion, hamstring curls, mini sits x's 20 each. step ups x's 15 each. yellow tband mid and low rows, horiz abd x's 10 each restorator x's 10min . patient instructed to perform home exercise program twice a day which included above exercises . Physical Therapy Stair Training Problem:PT Impaired gait Goal:Improved Stair Climbing Completed up and down 12 steps with railing and recip pattern Physical Therapy Gait Training Problem:PT Impaired gait Goal:Improved Gait Completed Indep amb with no ad with steady recip pattern x 100 Physical Therapy Balance Training Problem:PT Impaired balance Goal:Improved Balance Completed pt demonstrates improved dynamic standing balance as evidenced by a TUG of 16 Instruct and educate on knowledge deficits Problem:PT Learning Assessment Goal:Demonstrate understanding of education Completed patient verbalize and/or demonstrate understanding of physical therapy education including oxygen safety, fall prevention strategies, home safety and home exercise program. Education methods include: verbal cues. Instruct on signs, symptoms, and management of primary pulmonary disease Problem:PT Pulmonary Disease Goal:Manage Primary Pulmonary Disease Completed patient instructed on instructed on when to call provider. [facility] Visit Details Visit Type -SN AGENCY DC W V ISIT Discipline -Mcc Problems Problem Description Start Date Status Goals Interve ntions Medication Education Disciplines: Skilled Services 09/08/2022 Resolved on 11/01/2022 1 goal linked to scheduled/documen quinn intervention 1 goal intervention scheduled/document ed in this visit Sepsis Disciplines: Skilled Services 09/08/2022 Resolved on 11/01/2022 1 goal linked to scheduled/documen quinn intervention 1 goal intervention scheduled/document ed in this visit Physician Specific Parameters Disciplines: Skilled Services 09/08/2022 Resolved on 11/01/2022 1 goal linked to scheduled/documen quinn intervention 1 goal intervention scheduled/document ed in this visit Risk for Falls Disciplines: Skilled Services 09/08/2022 Resolved on 11/01/2022 1 goal linked to scheduled/documen quinn intervention 1 goal intervention scheduled/document ed in this visit Discharge Disciplines: Skilled Services 09/08/2022 Resolved on 11/01/2022 1 goal linked to scheduled/documen quinn intervention 3 goal interventions scheduled/document ed in this visit SN Respiratory Disease Disciplines: SN 09/08/2022 Resolved on 11/01/2022 1 goal linked to scheduled/documen quinn intervention 1 goal intervention scheduled/document ed in this visit SN Learning Assessment Disciplines: SN 09/08/2022 Resolved on 11/01/2022 1 goal linked to scheduled/documen quinn intervention 1 goal intervention scheduled/document ed in this visit Goals Goal Associated Problem Outcome Goal Met? Visit Notes Patient/caregiver will demonstrate ability to obtain, store, identify and administer ordered medications, keep accurate medication list in home, and adhere to medication schedule Description: Patient/caregiver will demonstrate ability to obtain, store, identify and administer ordered medications, keep accurate medication list in home, and adhere to medication schedule by 11/06/22. Medication Education Completed Yes Patient/caregiver will be able to identify and report symptoms of sepsis Description: Patient/caregiver will be able to identify signs/symptoms of sepsis infection and will verbalize actions to take if suspected by 11/06/22. Sepsis Completed Yes Patient to maintain parameters within physician-specified ranges throughout certification period Physician Specific Parameters Completed Yes Manage Risk for falls Description: Patient/caregiver will verbalize knowledge of individualized fall prevention strategies by 11/06/22. Risk for Falls Completed Yes Manage discharge planning Description: Patient/caregiver will verbalize understanding of ongoing discharge plan provided related to disease management, arrangements for outpatient and/or community services, obtaining medications, supplies, and DME, as needed throughout certification period. Discharge Completed Yes Improved management of respiratory condition Description: Improve respiratory management as evidenced by patient/caregiver's ability to teach back strategies for improving respiratory status by 11/06/22. SN Respiratory Disease Completed Yes Demonstrate understanding of education Description: Patient and/or caregiver will verbalize understanding of educational instruction provided throughout certification period. SN Learning Assessment Completed Yes Interventions Intervention Associated Problem/Goal Status Variance Visit Notes Medication Education Description: Evaluate/instruct patient/caregiver on obtaining, storing, identifying and administering ordered medications as well as keeping accurate medication list in the home and adhereing to medication schedule Problem:Medication Education Goal:Patient/caregive r will demonstrate ability to obtain, store, identify and administer ordered medications, keep accurate medication list in home, and adhere to medication schedule Completed Patient instructed on importance of keeping accurate medication list in home, adhering to medication schedule and proper storage of medications. Risk of Sepsis Description: Patient is at risk for sepsis. Monitor closely for s/s of sepsis. Problem:Sepsis Goal:Patient/caregive r will be able to identify and report symptoms of sepsis Completed SPO2 Description: Notify Dr. Otilia Lopez MD if pulse ox is <92% at rest. Problem:Physician Specific Parameters Goal:Patient to maintain parameters within physician-specified ranges throughout certification period Completed Instruct on individual fall risk factors and strategies to prevent falls and injuries caused by falls. Problem:Risk for Falls Goal:Manage Risk for falls Completed SN: Patient instructed on Eliminating Environmental Hazards: Keep pathways clear, Keep pets out of pathways, Keep rooms and walkways well lit, Wear supportive shoes or non-skid socks and Keep frequently used items within reach Deliver NOMNC Problem:Discharge Goal:Manage discharge planning Completed Delivered NOMNC Instruct on final discharge plan and deliver discharge instructions Problem:Discharge Goal:Manage discharge planning Completed Delivered Discharge plan: Discharge plan discussed with patient for plan for transition to: live independently at home without ongoing services Instruct on ongoing discharge plan Problem:Discharge Goal:Manage discharge planning Completed Ongoing Discharge plan: Discharge plan discussed with patient including frequency and duration for home SN and plan for transition to: live independently at home without ongoing services. Instruct on respiratory disease process and management of condition Description: Patient has following respiratory diagnosis(es): pneumothorax Problem:SN Respiratory Disease Goal:Improved management of respiratory condition Completed patient assessed and reinforced on respiratory disease process, zone sheet, self monitoring & symptom reporting, s/s of respiratory infection and breathing management techniques: pursed lip breathing, diaphragmatic breathing, positioning to reduce SOB and use of incentive spirometer. Instruct and educate on knowledge deficits Problem:SN Learning Assessment Goal:Demonstrate understanding of education Completed patient verbalize and/or demonstrate understanding of nursing education completed today. Education methods include: verbal cues and teach back. Further education required to improve knowledge and compliance with fall prevention/home safety strategies, oxygen safety and pulmonary disease management. documented in this encounter [facility] for referral (narrative)* Outpatient Procedure (Routine) - Authorized Specialty Diagnoses / Procedures Referred By Contac t Referred To Contact [facility] Diagnoses Pulmonary emphysema, unspecified emphysema type (HCC) Procedures OXIMETRY WITH AMBULATION NONINVASIVE EAR/PULSE OXIMETRY MULTIPLE DETER Renetta Chery APRN.CNP [address] [place] [address] [address] Referral ID Status Reason Start Date Expiration Date Visits Requested Visits Authorized [id number] Authorized Auto-Generat ed Referral 05/09/2024 06/08/2025 1 1 * Outpatient Procedure (Routine) - Pending Review Specialty Diagnoses / Procedures Referred By Contac t Referred To [facility] Diagnoses Pulmonary emphysema, unspecified emphysema type (HCC) Procedures LUNG VOLUMES Renetta Chery APRN.LAST GREASER [address] [place] [address] [address] Referral ID Status Reason Start Date Expiration Date Visits Requested Visits Authorized [id number] Pending Review Auto-Generat ed Referral 05/09/2024 06/08/2025 1 1 * Outpatient Procedure (Routine) - Authorized Specialty Diagnoses / Procedures Referred By Contac t Referred To [facility] Diagnoses Pulmonary emphysema, unspecified emphysema type (HCC) Procedures LUNG DIFFUSION CAPACITY (DLCO) DIFFUSING CAPACITY Renetta Chery APRN.CNP [address] [place] [address] [address] Referral ID Status Reason Start Date Expiration Date Visits Requested Visits Authorized [id number] Authorized Auto-Generat ed Referral 05/09/2024 06/08/2025 1 1 * Outpatient Procedure (Routine) - Authorized Specialty Diagnoses / Procedures Referred By Contac t Referred To Contact [facility] Diagnoses Pulmonary emphysema, unspecified emphysema type (HCC) Procedures SPIROMETRY BASELINE ONLY SPMTRY W/VC EXPIRATORY CHIARA W/WO MXML VOL VNTJ Renetta Chery APRN.CNP [address] [place] [address] Respiratory [place] [address] [place] [id number] Referral ID Status Reason Start Date Expiration Date Visits Requested Visits Authorized [id number] Authorized Auto-Generat ed Referral 05/09/2024 06/08/2025 1 1 [facility] for referral (narrative)No reason for referral information availableW[facility] Work Phone: Reason for visit Narrative* Outpatient Procedure (Routine) - Closed Specialty Diagnoses / Procedures Referred By Contac t Referred To [facility] Diagnoses Chronic hypoxemic respiratory failure (HCC) Pulmonary emphysema, unspecified emphysema type (HCC) Procedures OXIMETRY WITH AMBULATION NONINVASIVE EAR/PULSE OXIMETRY MULTIPLE DETER Patito Amaral MD [address] [place] [address] Respiratory [place] [address] [place] [id number] Referral ID Status Reason Start Date Expiration Date V isits Requested Visits Authorized [id number] Closed Auto-Generate d Referral 10/30/2023 11/28/2024 1 1 [facility] for visit Narrative* Diagnostic Procedure Only (Urgent) - Closed Specialty Diagnoses / Procedures Referred By Contac t Referred To Contact XR IMAG[facility] Diagnoses Left hip pain Procedures XR HIP GENERAL 3V PELV/AP/LAT LEFT RADEX HIP UNILATERAL WITH PELVIS 2-3 VIEWS Otilia Lopez MD [address] [place] [address] Phone: tel: fax: [place] [address] Referral ID Status Reason Start Date Expiration Date V isits Requested Visits Authorized [id number] Closed Auto-Generate d Referral 10/28/2024 11/27/2025 1 1 [facility] Chief Complaint and Reason for Visit Chief Complaint PNEUMOTHORAX PNEUMOTHORAX Reason for Visit Acute respiratory fa ilure with hypoxia Pneumothorax Chief Complaint PNEUMOTHORAX PNEUMOTHORAX PNEUMOTHORAX PNEUMOTHORAX PNEUMOTHORAX PNEUMOTHORAX PNEUMOTHORAX Reason for Visit Acute respiratory fa ilure with hypoxia Pneumothorax Asthma exacerbation in COPD Chief Complaint PNEUMOTHORAX PNEUMOTHORAX PNEUMOTHORAX PNEUMOTHORAX PNEUMOTHORAX PNEUMOTHORAX HIGH HR RT SIDE PNEUMOTHORAX PNEUMOTHORAX CENTRILOBULAR EMPHYSEMA COPD Gold III, Centrilobular Emphysema Reason for Visit Acute respiratory fa ilure with hypoxia Pneumothorax Chief Complaint PNEUMOTHORAX CENTRILOBULAR EMPHYSEMA COPD Gold III, Centrilobular Emphysema Chief Complaint CENTRILOBULAR EMPHYS KEITH COPD Gold III, Centrilobular Emphysema COPD Gold III, Centrilobular Emphysema Chief Complaint CENTRILOBULAR EMPHYS KEITH COPD Gold III, Centrilobular Emphysema COPD Gold III, Centrilobular Emphysema COPD Gold III, Centrilobular Emphysema Chief Complaint CENTRILOBULAR EMPHYS KEITH COPD Gold III, Centrilobular Emphysema COPD Gold III, Centrilobular Emphysema COPD Gold III, Centrilobular Emphysema COPD Gold III, Centrilobular Emphysema Chief Complaint COPD Gold III, Centr ilobular Emphysema COPD Gold III, Centrilobular Emphysema COPD Gold III, Centrilobular Emphysema COPD Gold III, Centrilobular Emphysema Chief Complaint SOB Chief Complaint Admit Date ABLA SUSPECT 2/2 URINARY SOURCE October 14, 2024 8:06pm ABLA SUSPECT 2/2 URINARY SOURCE October 15, 2024 10:54am RHYTHM CHANGE October 16, 2024 3:50am ABLA SUSPECT 2/2 URINARY SOURCE October 16, 2024 10:24am ABLA SUSPECT 2/2 URINARY SOURCE October 17, 2024 10:49am E-ORDER October 24, 2024 2:21pm Reason for Visit Admit Date Gross hematuria October 14, 2024 8:06pm Painless hematuria October 14, 2024 8:06pm Signs and symptoms of anemia October 142024 8:06pm Symptomatic anemia October 14, 2024 8:06pm Unintentional weight loss October 14, 2024 8:06pm Frequent ventricular premature beats Feb ruary 2024 8:06pm History of COPD October 14, 2024 8:06pm PAC (premature atrial contraction) Sarika lindsey 2024 8:06pm Chief Complaint Admit Date gi bleed March 03, 2025 2:58p m GI BLEED March 03, 2025 2:59p m Reason for Visit Admit Date Blood in stool March 03, 2025 2:59p m Family History Relationship Condition Age at Onset Recorded Date/T ilia Not Specified Cardiac disease Unknown Chronic obstructive pulmonary disease Unk nown Hypertension Unknown Advance Directives Advance Directive Response Recorded Date/ Time Living Will No August 25, 2 022 2:52pm Power of Collar Closer Lockstitch No August 25, 2022 2:52pm Latest Code Status on File Code Status Date Activated Date Inactivated Comments Full Code 08/28/2022 1:50 PM Full Code Order Discussed With: Patient Surrogate Decision Maker Surrogate Decision Maker Name: , wif e is not available then consensus of two daughters Latest Code Status on File Code Status Date Activated Date Inactivated Comments Full Code 08/28/2022 1:50 PM 09/06/2022 9:28 PM Latest Code Status on File Code Status Date Activated Date Inactivated Comments Full Code 09/09/2022 12:10 AM Full Code 08/28/2022 1:50 PM 09/06/2022 9:28 PM Latest Code Status on File Code Status Date Activated Date Inactivated Comments Full Code 09/09/2022 12:10 AM Full Code 08/28/2022 1:50 PM 09/06/2022 9:28 PM Advance Directive Response Recorded Date/ Time Advance Directives on File No December 13, 2022 8:51am Living Will No December 13, 2022 8:51am Power of Collar Closer Lockstitch No December 13 8:51am Advance Directive Response Recorded Date/ Time Living Will No December 13, 2022 8:51am Power of Collar Closer Lockstitch No December 13 8:51am Advance Directives on File No December 13, 2022 8:51am Latest Code Status on File Code Status Date Activated Date Inactivated Comments Full Code 09/09/2022 12:10 AM Code Status History Code Status Date Activated Date Inactivated Comments Full Code 08/28/2022 1:50 PM 09/06/2022 9:28 PM Question Answer Comments Full Code Order Discussed With: Patient Surrogate Decision Maker Surrogate Decision Maker Name: , is not available then consensus of two daughters Advance Directive Response Recorded Date/ Time Living Will No December 13, 2022 8:51am Power of Collar Closer Lockstitch No December 13 8:51am Latest Code Status on File Code Status Date Activated Date Inactivated Comments Full Code 09/09/2022 12:10 AM Code Status History Code Status Date Activated Date Inactivated Comments Full Code 08/28/2022 1:50 PM 09/06/2022 9:28 PM Question Answer Comments Full Code Order Discussed With: Patient Surrogate Decision Maker Surrogate Decision Maker Name: , is not available then consensus of two daughters Date Activated Date Inactivated Comments 09/09/2022 12:10 AM Date Activated Date Inactivated Comments 08/28/2022 1:50 PM 09/06/2022 9:28 PM Question Answer Comments Full Code Order Discussed With: PatientSurrogate Decision Maker Surrogate Decision Maker Name: , wif e is not available then consensus of two daughters Advance Directive Response Recorded Date/ Time Living Will No January 06, 2024 2 :22pm Power of Collar Closer Lockstitch No January 06, 2024 2:22pm Date Activated Date Inactivated Comments 09/09/2022 12:10 AM Date Activated Date Inactivated Comments 08/28/2022 1:50 PM 09/06/2022 9:28 PM Question Answer Comments Full Code Order Discussed With: PatientSurrogate Decision Maker Surrogate Decision Maker Name: , wif e is not available then consensus of two daughters Advance Directive Response Recorded Date/ Time Living Will No October 14 025 9:46pm Power of Collar Closer Lockstitch No October 14, 2024 9:46pm Advance Directive Response Recorded Date/ Time Do you have a Healthcare Power of Collar Closer Lockstitch? No March 03, 2025 1:12pm Reason for Referral Specialty Diagnoses / Procedures Referred By Rocky armijo Referred To Contact Patito Amaral MD [address] [place] [address] Referral ID Status Reason Start Date Expiration Date V isits Requested Visits Authorized [id number] Pending Review 1 1 Specialty Diagnoses / Procedures Referred By Contac t Referred To Contact Nutrition Diagnoses Pulmonary emphysema, unspecified emphysema type (HCC) Chronic hypoxemic respiratory failure (HCC) Bullous emphysema (HCC) Procedures CONSULT TO NUTRITION THERAPY OFFICE/OUTPATIENT [facility] HIGH MDM 60-74 MINUTES Patito Amaral MD [address] [place] [address] Referral ID Status Reason Start Date Expiration Date Visits Requested Visits Authorized [id number] Pending Review PCP Requested Referral 09/28/2022 09/28/2023 1 1 Specialty Diagnoses / Procedures Referred By Contac t Referred To Contact [facility] Diagnoses Pulmonary emphysema, unspecified emphysema type (HCC) Chronic hypoxemic respiratory failure (HCC) Procedures OXIMETRY WITH AMBULATION NONINVASIVE EAR/PULSE OXIMETRY MULTIPLE DETER Patito Amaral MD [address] [place] [address] [address] Referral ID Status Reason Start Date Expiration Date Visits Requested Visits Authorized [id number] Authorized Auto-Generat ed Referral 09/28/2022 10/28/2023 1 1 Specialty Diagnoses / Procedures Referred By Contac t Referred To Contact [facility] Diagnoses Pulmonary emphysema, unspecified emphysema type (HCC) Chronic hypoxemic respiratory failure (HCC) Procedures LUNG DIFFUSION CAPACITY (DLCO) DIFFUSING CAPACITY Patito Amaral MD [address] [place] [id number] Respiratory [address] [address] Referral ID Status Reason Start Date Expiration Date Visits Requested Visits Authorized [id number] Authorized Auto-Generat ed Referral 09/28/2022 10/28/2023 1 1 Specialty Diagnoses / Procedures Referred By Contac t Referred To [facility] Diagnoses Pulmonary emphysema, unspecified emphysema type (HCC) Chronic hypoxemic respiratory failure (HCC) Procedures LUNG VOLUMES Patito Amaral MD [address] [place] [id number] Respiratory [address] [address] Referral ID Status Reason Start Date Expiration Date Visits Requested Visits Authorized [id number] Pending Review Auto-Generat ed Referral 09/28/2022 10/28/2023 1 1 Specialty Diagnoses / Procedures Referred By Contac t Referred To Contact [facility] Diagnoses Pulmonary emphysema, unspecified emphysema type (HCC) Chronic hypoxemic respiratory failure (HCC) Procedures SPIROMETRY WITH DILATOR IF OBSTRUCTED BRNCDILAT RSPSE SPMTRY PRE&POST-BRNCDILAT ADMN Patito Amaral MD [address] [place] [address] Respiratory [place] [address] [place] [address] Referral ID Status Reason Start Date Expiration Date Visits Requested Visits Authorized [id number] Authorized Auto-Generat ed Referral 09/28/2022 10/28/2023 1 1 Specialty Diagnoses / Procedures Referred By Contac t Referred To Contact CT IMAGING Diagnoses Other pneumothorax Procedures CT CHEST WO IVCON DIAGNOSTIC COMPUTED TOMOGRAPHY THORAX W/O Patito Thomas MD [address] [place] [address] Ct Imaging Referral ID Status Reason Start Date Expiration Date Visits Requested Visits Authorized [id number] Authorized Auto-Generat ed Referral 09/28/2022 10/28/2023 1 1 Referral ID Status Reason Start Date Expiration Date V isits Requested Visits Authorized [id number] Closed Auto-Generate d Referral 09/28/2022 10/28/2023 1 1 Specialty Diagnoses / Procedures Referred By Contac t Referred To Contact CT IMAGING Diagnoses Pulmonary emphysema, unspecified emphysema type (HCC) Abnormal CXR History of pneumothorax Procedures CT CHEST WO IVCON DIAGNOSTIC COMPUTED TOMOGRAPHY THORAX W/O CNTRST Renetta Chery, ENGINEER SERGEANT.[facility] [address] [place] [address] [place] [address] Referral ID Status Reason Start Date Expiration Date Visits Requested Visits Authorized [id number] New Request Auto-Generat ed Referral 05/29/2024 06/28/2025 1 1 Specialty Diagnoses / Procedures Referred By Contac t Referred To Contact CT IMAGING Diagnoses Abnormal CT of the chest Procedures CT CHEST WO IVCON CT CHEST WO IVCON DIAGNOSTIC COMPUTED TOMOGRAPHY THORAX W/O CNTRST SeaRenetta joel APRN.[employer] [address] [place] [address] [place] [address] Referral ID Status Reason Start Date Expiration Date Visits Requested Visits Authorized [id number] New Request Auto-Generat ed Referral 08/02/2024 07/10/2025 1 1 Summary Purpose Additional Source Comments Goals (unrecognized section and content) Goals may be documented in a n alternate sectionGoals may be documented in an alternate sectionGoals may be documented in an alternate sectionGoals may be documented in an alternate sectionGoals may be documented in an alternate sectionGoals may be documented in an alternate sectionGoals may be documented in an alternate sectionGoals may be documented in an alternate section Source Comments (unrecognize d section and content) In the event this informatio n is protected by the Federal Confidentiality of Alcohol and Drug Abuse Patient Records regulations: The Federal rules restrict any use of the information to criminally investigate or prosecute any alcohol or drug abuse patient.[facility] the event this information is protected by the Federal Confidentiality of Alcohol and Drug Abuse Patient Records regulations: The Federal rules restrict any use of the information to criminally investigate or prosecute any alcohol or drug abuse patient.[facility]In the event this information is protected by the Federal Confidentiality of Alcohol and Drug Abuse Patient Records regulations: The Federal rules restrict any use of the information to criminally investigate or prosecute any alcohol or drug abuse patient.[facility]In the event this information is protected by the Federal Confidentiality of Alcohol and Drug Abuse Patient Records regulations: The Federal rules restrict any use of the information to criminally investigate or prosecute any alcohol or drug abuse patient.[facility]In the event this information is protected by the Federal Confidentiality of Alcohol and Drug Abuse Patient Records regulations: The Federal rules restrict any use of the information to criminally investigate or prosecute any alcohol or drug abuse patient.[facility]In the event this information is protected by the Federal Confidentiality of Alcohol and Drug Abuse Patient Records regulations: The Federal rules restrict any use of the information to criminally investigate or prosecute any alcohol or drug abuse patient.[facility] HospitalIn the event this information is protected by the Federal Confidentiality of Alcohol and Drug Abuse Patient Records regulations: The Federal rules restrict any use of the information to criminally investigate or prosecute any alcohol or drug abuse patient.[facility]In the event this information is protected by the Federal Confidentiality of Alcohol and Drug Abuse Patient Records regulations: The Federal rules restrict any use of the information to criminally investigate or prosecute any alcohol or drug abuse patient.[facility]In the event this information is protected by the Federal Confidentiality of Alcohol and Drug Abuse Patient Records regulations: The Federal rules restrict any use of the information to criminally investigate or prosecute any alcohol or drug abuse patient.[facility] HospitalIn the event this information is protected by the Federal Confidentiality of Alcohol and Drug Abuse Patient Records regulations: The Federal rules restrict any use of the information to criminally investigate or prosecute any alcohol or drug abuse patient.[facility] HospitalIn the event this information is protected by the Federal Confidentiality of Alcohol and Drug Abuse Patient Records regulations: The Federal rules restrict any use of the information to criminally investigate or prosecute any alcohol or drug abuse patient.[facility] HospitalIn the event this information is protected by the Federal Confidentiality of Alcohol and Drug Abuse Patient Records regulations: The Federal rules restrict any use of the information to criminally investigate or prosecute any alcohol or drug abuse patient.[facility] HospitalIn the event this information is protected by the Federal Confidentiality of Alcohol and Drug Abuse Patient Records regulations: The Federal rules restrict any use of the information to criminally investigate or prosecute any alcohol or drug abuse patient.[facility] HospitalIn the event this information is protected by the Federal Confidentiality of Alcohol and Drug Abuse Patient Records regulations: The Federal rules restrict any use of the information to criminally investigate or prosecute any alcohol or drug abuse patient.[facility] HospitalIn the event this information is protected by the Federal Confidentiality of Alcohol and Drug Abuse Patient Records regulations: The Federal rules restrict any use of the information to criminally investigate or prosecute any alcohol or drug abuse patient.[facility] HospitalIn the event this information is protected by the Federal Confidentiality of Alcohol and Drug Abuse Patient Records regulations: The Federal rules restrict any use of the information to criminally investigate or prosecute any alcohol or drug abuse patient.[facility] HospitalIn the event this information is protected by the Federal Confidentiality of Alcohol and Drug Abuse Patient Records regulations: The Federal rules restrict any use of the information to criminally investigate or prosecute any alcohol or drug abuse patient.[facility] HospitalIn the event this information is protected by the Federal Confidentiality of Alcohol and Drug Abuse Patient Records regulations: The Federal rules restrict any use of the information to criminally investigate or prosecute any alcohol or drug abuse patient.[facility] HospitalIn the event this information is protected by the Federal Confidentiality of Alcohol and Drug Abuse Patient Records regulations: The Federal rules restrict any use of the information to criminally investigate or prosecute any alcohol or drug abuse patient.[facility] HospitalIn the event this information is protected by the Federal Confidentiality of Alcohol and Drug Abuse Patient Records regulations: The Federal rules restrict any use of the information to criminally investigate or prosecute any alcohol or drug abuse patient.[facility] HospitalIn the event this information is protected by the Federal Confidentiality of Alcohol and Drug Abuse Patient Records regulations: The Federal rules restrict any use of the information to criminally investigate or prosecute any alcohol or drug abuse patient.[facility] HospitalIn the event this information is protected by the Federal Confidentiality of Alcohol and Drug Abuse Patient Records regulations: The Federal rules restrict any use of the information to criminally investigate or prosecute any alcohol or drug abuse patient.[facility] HospitalIn the event this information is protected by the Federal Confidentiality of Alcohol and Drug Abuse Patient Records regulations: The Federal rules restrict any use of the information to criminally investigate or prosecute any alcohol or drug abuse patient.[facility] HospitalIn the event this information is protected by the Federal Confidentiality of Alcohol and Drug Abuse Patient Records regulations: The Federal rules restrict any use of the information to criminally investigate or prosecute any alcohol or drug abuse patient.[facility] HospitalIn the event this information is protected by the Federal Confidentiality of Alcohol and Drug Abuse Patient Records regulations: The Federal rules restrict any use of the information to criminally investigate or prosecute any alcohol or drug abuse patient.[facility] HospitalIn the event this information is protected by the Federal Confidentiality of Alcohol and Drug Abuse Patient Records regulations: The Federal rules restrict any use of the information to criminally investigate or prosecute any alcohol or drug abuse patient.[facility] HospitalIn the event this information is protected by the Federal Confidentiality of Alcohol and Drug Abuse Patient Records regulations: The Federal rules restrict any use of the information to criminally investigate or prosecute any alcohol or drug abuse patient.[facility] HospitalIn the event this information is protected by the Federal Confidentiality of Alcohol and Drug Abuse Patient Records regulations: The Federal rules restrict any use of the information to criminally investigate or prosecute any alcohol or drug abuse patient.[facility] HospitalIn the event this information is protected by the Federal Confidentiality of Alcohol and Drug Abuse Patient Records regulations: The Federal rules restrict any use of the information to criminally investigate or prosecute any alcohol or drug abuse patient.[facility] HospitalIn the event this information is protected by the Federal Confidentiality of Alcohol and Drug Abuse Patient Records regulations: The Federal rules restrict any use of the information to criminally investigate or prosecute any alcohol or drug abuse patient.[facility] HospitalIn the event this information is protected by the Federal Confidentiality of Alcohol and Drug Abuse Patient Records regulations: The Federal rules restrict any use of the information to criminally investigate or prosecute any alcohol or drug abuse patient.[facility] HospitalIn the event this information is protected by the Federal Confidentiality of Alcohol and Drug Abuse Patient Records regulations: The Federal rules restrict any use of the information to criminally investigate or prosecute any alcohol or drug abuse patient.[facility] HospitalIn the event this information is protected by the Federal Confidentiality of Alcohol and Drug Abuse Patient Records regulations: The Federal rules restrict any use of the information to criminally investigate or prosecute any alcohol or drug abuse patient.[facility] HospitalIn the event this information is protected by the Federal Confidentiality of Alcohol and Drug Abuse Patient Records regulations: The Federal rules restrict any use of the information to criminally investigate or prosecute any alcohol or drug abuse patient.[facility] HospitalIn the event this information is protected by the Federal Confidentiality of Alcohol and Drug Abuse Patient Records regulations: The Federal rules restrict any use of the information to criminally investigate or prosecute any alcohol or drug abuse patient.[facility] HospitalIn the event this information is protected by the Federal Confidentiality of Alcohol and Drug Abuse Patient Records regulations: The Federal rules restrict any use of the information to criminally investigate or prosecute any alcohol or drug abuse patient.[facility] HospitalIn the event this information is protected by the Federal Confidentiality of Alcohol and Drug Abuse Patient Records regulations: The Federal rules restrict any use of the information to criminally investigate or prosecute any alcohol or drug abuse patient.[facility] HospitalIn the event this information is protected by the Federal Confidentiality of Alcohol and Drug Abuse Patient Records regulations: The Federal rules restrict any use of the information to criminally investigate or prosecute any alcohol or drug abuse patient.[facility] HospitalIn the event this information is protected by the Federal Confidentiality of Alcohol and Drug Abuse Patient Records regulations: The Federal rules restrict any use of the information to criminally investigate or prosecute any alcohol or drug abuse patient.[facility] HospitalIn the event this information is protected by the Federal Confidentiality of Alcohol and Drug Abuse Patient Records regulations: The Federal rules restrict any use of the information to criminally investigate or prosecute any alcohol or drug abuse patient.[facility] HospitalIn the event this information is protected by the Federal Confidentiality of Alcohol and Drug Abuse Patient Records regulations: The Federal rules restrict any use of the information to criminally investigate or prosecute any alcohol or drug abuse patient.[facility] HospitalIn the event this information is protected by the Federal Confidentiality of Alcohol and Drug Abuse Patient Records regulations: The Federal rules restrict any use of the information to criminally investigate or prosecute any alcohol or drug abuse patient.[facility] HospitalIn the event this information is protected by the Federal Confidentiality of Alcohol and Drug Abuse Patient Records regulations: The Federal rules restrict any use of the information to criminally investigate or prosecute any alcohol or drug abuse patient.[facility] HospitalIn the event this information is protected by the Federal Confidentiality of Alcohol and Drug Abuse Patient Records regulations: The Federal rules restrict any use of the information to criminally investigate or prosecute any alcohol or drug abuse patient.[facility] HospitalIn the event this information is protected by the Federal Confidentiality of Alcohol and Drug Abuse Patient Records regulations: The Federal rules restrict any use of the information to criminally investigate or prosecute any alcohol or drug abuse patient.[facility] HospitalIn the event this information is protected by the Federal Confidentiality of Alcohol and Drug Abuse Patient Records regulations: The Federal rules restrict any use of the information to criminally investigate or prosecute any alcohol or drug abuse patient.[facility] HospitalIn the event this information is protected by the Federal Confidentiality of Alcohol and Drug Abuse Patient Records regulations: The Federal rules restrict any use of the information to criminally investigate or prosecute any alcohol or drug abuse patient.[facility] HospitalIn the event this information is protected by the Federal Confidentiality of Alcohol and Drug Abuse Patient Records regulations: The Federal rules restrict any use of the information to criminally investigate or prosecute any alcohol or drug abuse patient.[facility] HospitalIn the event this information is protected by the Federal Confidentiality of Alcohol and Drug Abuse Patient Records regulations: The Federal rules restrict any use of the information to criminally investigate or prosecute any alcohol or drug abuse patient.[facility] HospitalIn the event this information is protected by the Federal Confidentiality of Alcohol and Drug Abuse Patient Records regulations: The Federal rules restrict any use of the information to criminally investigate or prosecute any alcohol or drug abuse patient.[facility] HospitalIn the event this information is protected by the Federal Confidentiality of Alcohol and Drug Abuse Patient Records regulations: The Federal rules restrict any use of the information to criminally investigate or prosecute any alcohol or drug abuse patient.[facility] HospitalIn the event this information is protected by the Federal Confidentiality of Alcohol and Drug Abuse Patient Records regulations: The Federal rules restrict any use of the information to criminally investigate or prosecute any alcohol or drug abuse patient.[facility] HospitalIn the event this information is protected by the Federal Confidentiality of Alcohol and Drug Abuse Patient Records regulations: The Federal rules restrict any use of the information to criminally investigate or prosecute any alcohol or drug abuse patient.[facility] HospitalIn the event this information is protected by the Federal Confidentiality of Alcohol and Drug Abuse Patient Records regulations: The Federal rules restrict any use of the information to criminally investigate or prosecute any alcohol or drug abuse patient.[facility] HospitalIn the event this information is protected by the Federal Confidentiality of Alcohol and Drug Abuse Patient Records regulations: The Federal rules restrict any use of the information to criminally investigate or prosecute any alcohol or drug abuse patient.[facility] HospitalIn the event this information is protected by the Federal Confidentiality of Alcohol and Drug Abuse Patient Records regulations: The Federal rules restrict any use of the information to criminally investigate or prosecute any alcohol or drug abuse patient.[facility] HospitalIn the event this information is protected by the Federal Confidentiality of Alcohol and Drug Abuse Patient Records regulations: The Federal rules restrict any use of the information to criminally investigate or prosecute any alcohol or drug abuse patient.[facility] HospitalIn the event this information is protected by the Federal Confidentiality of Alcohol and Drug Abuse Patient Records regulations: The Federal rules restrict any use of the information to criminally investigate or prosecute any alcohol or drug abuse patient.[facility] HospitalIn the event this information is protected by the Federal Confidentiality of Alcohol and Drug Abuse Patient Records regulations: The Federal rules restrict any use of the information to criminally investigate or prosecute any alcohol or drug abuse patient.[facility]In the event this information is protected by the Federal Confidentiality of Alcohol and Drug Abuse Patient Records regulations: The Federal rules restrict any use of the information to criminally investigate or prosecute any alcohol or drug abuse patient.[facility] HospitalIn the event this information is protected by the Federal Confidentiality of Alcohol and Drug Abuse Patient Records regulations: The Federal rules restrict any use of the information to criminally investigate or prosecute any alcohol or drug abuse patient.[facility] HospitalIn the event this information is protected by the Federal Confidentiality of Alcohol and Drug Abuse Patient Records regulations: The Federal rules restrict any use of the information to criminally investigate or prosecute any alcohol or drug abuse patient.[facility] HospitalIn the event this information is protected by the Federal Confidentiality of Alcohol and Drug Abuse Patient Records regulations: The Federal rules restrict any use of the information to criminally investigate or prosecute any alcohol or drug abuse patient.[facility] HospitalIn the event this information is protected by the Federal Confidentiality of Alcohol and Drug Abuse Patient Records regulations: The Federal rules restrict any use of the information to criminally investigate or prosecute any alcohol or drug abuse patient.[facility] HospitalIn the event this information is protected by the Federal Confidentiality of Alcohol and Drug Abuse Patient Records regulations: The Federal rules restrict any use of the information to criminally investigate or prosecute any alcohol or drug abuse patient.[facility] HospitalIn the event this information is protected by the Federal Confidentiality of Alcohol and Drug Abuse Patient Records regulations: The Federal rules restrict any use of the information to criminally investigate or prosecute any alcohol or drug abuse patient.[facility] HospitalIn the event this information is protected by the Federal Confidentiality of Alcohol and Drug Abuse Patient Records regulations: The Federal rules restrict any use of the information to criminally investigate or prosecute any alcohol or drug abuse patient.[facility] HospitalIn the event this information is protected by the Federal Confidentiality of Alcohol and Drug Abuse Patient Records regulations: The Federal rules restrict any use of the information to criminally investigate or prosecute any alcohol or drug abuse patient.[facility] HospitalIn the event this information is protected by the Federal Confidentiality of Alcohol and Drug Abuse Patient Records regulations: The Federal rules restrict any use of the information to criminally investigate or prosecute any alcohol or drug abuse patient.[facility] HospitalIn the event this information is protected by the Federal Confidentiality of Alcohol and Drug Abuse Patient Records regulations: The Federal rules restrict any use of the information to criminally investigate or prosecute any alcohol or drug abuse patient.[facility]In the event this information is protected by the Federal Confidentiality of Alcohol and Drug Abuse Patient Records regulations: The Federal rules restrict any use of the information to criminally investigate or prosecute any alcohol or drug abuse patient.[facility]In the event this information is protected by the Federal Confidentiality of Alcohol and Drug Abuse Patient Records regulations: The Federal rules restrict any use of the information to criminally investigate or prosecute any alcohol or drug abuse patient.[facility] HospitalIn the event this information is protected by the Federal Confidentiality of Alcohol and Drug Abuse Patient Records regulations: The Federal rules restrict any use of the information to criminally investigate or prosecute any alcohol or drug abuse patient.[facility]In the event this information is protected by the Federal Confidentiality of Alcohol and Drug Abuse Patient Records regulations: The Federal rules restrict any use of the information to criminally investigate or prosecute any alcohol or drug abuse patient.[facility]In the event this information is protected by the Federal Confidentiality of Alcohol and Drug Abuse Patient Records regulations: The Federal rules restrict any use of the information to criminally investigate or prosecute any alcohol or drug abuse patient.[facility]In the event this information is protected by the Federal Confidentiality of Alcohol and Drug Abuse Patient Records regulations: The Federal rules restrict any use of the information to criminally investigate or prosecute any alcohol or drug abuse patient.[facility] HospitalIn the event this information is protected by the Federal Confidentiality of Alcohol and Drug Abuse Patient Records regulations: The Federal rules restrict any use of the information to criminally investigate or prosecute any alcohol or drug abuse patient.[facility]In the event this information is protected by the Federal Confidentiality of Alcohol and Drug Abuse Patient Records regulations: The Federal rules restrict any use of the information to criminally investigate or prosecute any alcohol or drug abuse patient.[facility] HospitalIn the event this information is protected by the Federal Confidentiality of Alcohol and Drug Abuse Patient Records regulations: The Federal rules restrict any use of the information to criminally investigate or prosecute any alcohol or drug abuse patient.[facility] the event this information is protected by the Federal Confidentiality of Alcohol and Drug Abuse Patient Records regulations: The Federal rules restrict any use of the information to criminally investigate or prosecute any alcohol or drug abuse patient.[facility] HospitalIn the event this information is protected by the Federal Confidentiality of Alcohol and Drug Abuse Patient Records regulations: The Federal rules restrict any use of the information to criminally investigate or prosecute any alcohol or drug abuse patient.[facility]In the event this information is protected by the Federal Confidentiality of Alcohol and Drug Abuse Patient Records regulations: The Federal rules restrict any use of the information to criminally investigate or prosecute any alcohol or drug abuse patient.[facility] the event this information is protected by the Federal Confidentiality of Alcohol and Drug Abuse Patient Records regulations: The Federal rules restrict any use of the information to criminally investigate or prosecute any alcohol or drug abuse patient.[facility] HospitalIn the event this information is protected by the Federal Confidentiality of Alcohol and Drug Abuse Patient Records regulations: The Federal rules restrict any use of the information to criminally investigate or prosecute any alcohol or drug abuse patient.[facility] HospitalIn the event this information is protected by the Federal Confidentiality of Alcohol and Drug Abuse Patient Records regulations: The Federal rules restrict any use of the information to criminally investigate or prosecute any alcohol or drug abuse patient.[facility] the event this information is protected by the Federal Confidentiality of Alcohol and Drug Abuse Patient Records regulations: The Federal rules restrict any use of the information to criminally investigate or prosecute any alcohol or drug abuse patient.[facility] HospitalIn the event this information is protected by the Federal Confidentiality of Alcohol and Drug Abuse Patient Records regulations: The Federal rules restrict any use of the information to criminally investigate or prosecute any alcohol or drug abuse patient.[facility] HospitalIn the event this information is protected by the Federal Confidentiality of Alcohol and Drug Abuse Patient Records regulations: The Federal rules restrict any use of the information to criminally investigate or prosecute any alcohol or drug abuse patient.[facility] Reason for Visit (unrecogniz ed section and content) Reason Comments Home Care Reason Comments Home Care Confirmation Call Reason Onset Date Comments Transition Of Care 09/07/2022 TCM initial o utreach - dc'd from [facility] 09/06/22 Reason Comments Home Care SOC Scheduling Reason Comments Transition Of Care TCM 7 day Specialty Diagnoses / Procedures Referred By Contac t Referred To Contact [facility] Home Care [address] [place] [id number] Referral ID Status Reason Start Date Expiration Date Visits Re quested Visits Authorized [id number] 1 1 Reason Comments COPD Reason Comments COPD Specialty Diagnoses / Procedures Referred By Contac t Referred To Contact [facility] Diagnoses Pulmonary emphysema, unspecified emphysema type (HCC) Chronic hypoxemic respiratory failure (HCC) Procedures OXIMETRY WITH AMBULATION NONINVASIVE EAR/PULSE OXIMETRY MULTIPLE DETER Patito Amaral MD 1 [place] [address] [address] Referral ID Status Reason Start Date Expiration Date V isits Requested Visits Authorized [id number] Closed Auto-Generate d Referral 09/28/2022 10/28/2023 1 1 Reason Comments Spirometry Specialty Diagnoses / Procedures [facility] Diagnoses Pulmonary emphysema, unspecified emphysema type (HCC) Chronic hypoxemic respiratory failure (HCC) Procedures SPIROMETRY WITH DILATOR IF OBSTRUCTED BRNCDILAT RSPSE SPMTRY PRE&POST-BRNCDILAT ADMPatito Hernandez MD 1 [place] [address] [address] Referral ID Status Reason Start Date Expiration Date V isits Requested Visits Authorized [id number] Closed Auto-Generate d Referral 09/28/2022 10/28/2023 1 1 Specialty Diagnoses / Procedures Referred By Contac t Referred To Contact [facility] Diagnoses Pulmonary emphysema, unspecified emphysema type (HCC) Chronic hypoxemic respiratory failure (HCC) Procedures LUNG DIFFUSION CAPACITY (DLCO) DIFFUSING CAPACITY Patito Amaral MD 1 [place] [address] [facility] [place] [address] [place], [place] [id number] Referral ID Status Reason Start Date Expiration Date V isits Requested Visits Authorized [id number] Closed Auto-Generate d Referral 09/28/2022 10/28/2023 1 1 Specialty Diagnoses / Procedures Referred By Contac t Referred To Contact [facility] Diagnoses Pulmonary emphysema, unspecified emphysema type (HCC) Chronic hypoxemic respiratory failure (HCC) Procedures LUNG VOLUMES PLETHYSMOGRAPHY LUNG VOLUMES W/WO AIRWAY RESIST Patito Amaral MD 1 [place] [phone] Respiratory [address] [address] Referral ID Status Reason Start Date Expiration Date V isits Requested Visits Authorized [id number] Closed Auto-Generate d Referral 10/02/2022 08/27/2023 1 1 Specialty Diagnoses / Procedures Referred By Contac t Referred To Contact CT IMAGING Diagnoses Other pneumothorax Procedures CT CHEST WO IVCON DIAGNOSTIC COMPUTED TOMOGRAPHY THORAX W/O CNTRST Patito Amaral MD [address] [place] [phone] Imaging Referral ID Status Reason Start Date Expiration Date V isits Requested Visits Authorized [id number] Closed Auto-Generate d Referral 09/28/2022 10/28/2023 1 1 Reason Comments Home Care Pt express he has be en having some allergy like symptoms, Would like to know if he can take Loratidine OTC? Reason Comments Follow Up Reason Comments F/U 3 Month Reason Onset Date Comments F/U 6 Month Immunizations 06/20/2023 Flu vaccination Reason Comments Results Nocturnal oximetry Reason Onset Date Comments Population Health Navigation Outreach 11/09/2023 [employer] care gaps Reason Comments F/U 6 Month Reason Comments FYI-No Action Needed Reason Comments ED Follow-up Reason Comments need new rx for nebulizer Reason Comments Follow Up Reason Comments Covid Positive Reason Comments COVID positive home test Reason Comments Radiology CT Specialty Diagnoses / Procedures Referred By Contac t Referred To Contact CT IMAG[facility] Diagnoses Pulmonary emphysema, unspecified emphysema type (HCC) Abnormal CXR History of pneumothorax Procedures CT CHEST WO IVCON DIAGNOSTIC COMPUTED TOMOGRAPHY THORAX W/O MIREYAT Renetta Chery, ENGINEER SERGEANT.LAST GREASER [address] [place] [address] [place] [address] Referral ID Status Reason Start Date Expiration Date V isits Requested Visits Authorized [id number] Closed Auto-Generate d Referral 05/29/2024 06/28/2025 1 1 Reason Comments Orders Results Reason Comments Medicare Wellness Exam Reason Comments Refill Request Reason Onset Date Comments Refill Request 08/08/2024 Specialty Diagnoses / Procedures [facility] Diagnoses Abnormal CT of the chest Procedures CT CHEST WO IVCON CT CHEST WO IVCON DIAGNOSTIC COMPUTED TOMOGRAPHY THORAX W/O CNTRST Dayne, Renetta, ENGINEER SERGEANT.LAST GREASER [address] [place] [address] [place] [address] Referral ID Status Reason Start Date Expiration Date V isits Requested Visits Authorized [id number] Closed Auto-Generate d Referral 08/02/2024 07/10/2025 1 1 Reason Onset Date Comments Refill Request 08/19/2024 Reason Comments Orders Oxgen Reason Onset Date Comments Refill Request 09/25/2024 Reason Comments Appointment Patient Question Reason Comments Orders Follow HH Reason Comments [facility] Plan of Care Reason Comments PT plan of care Reason Comments Patient Update Reason Comments Left Hip Pain Specialty Diagnoses / Procedures Referred By Contac t Referred To Contact [facility] Diagnoses Pulmonary emphysema, unspecified emphysema type (HCC) Procedures SPIROMETRY BASELINE ONLY SPMTRY W/VC EXPIRATORY CHIARA W/WO MXML VOL VNTJ Sanjuana Cherysa, ENGINEER SERGEANT.LAST GREASER [address] [place] [address] Phone: tel: fax: [facility] [place] [address] [place] [address] Referral ID Status Reason Start Date Expiration Date V isits Requested Visits Authorized [id number] Closed Auto-Generate d Referral 05/09/2024 06/08/2025 1 1 Specialty Diagnoses / Procedures Referred By Contac t Referred To Contact [facility] Diagnoses Pulmonary emphysema, unspecified emphysema type (HCC) Procedures LUNG VOLUMES SeaRenetta joel, ENGINEER SERGEANT.LAST GREASER [address] [place] [address] Phone: tel: fax: Respiratory [address] [address] Referral ID Status Reason Start Date Expiration Date V isits Requested Visits Authorized [id number] Closed Auto-Generate d Referral 10/16/2024 08/27/2025 1 1 Specialty Diagnoses / Procedures Referred By Contac t Referred To [facility] Diagnoses Pulmonary emphysema, unspecified emphysema type (HCC) Procedures LUNG DIFFUSION CAPACITY (DLCO) DIFFUSING CAPACITY Renetta Chery, ENGINEER SERGEANT.[facility] [address] [place] [address] Phone: tel: fax: [address] [address] Referral ID Status Reason Start Date Expiration Date V isits Requested Visits Authorized [id number] Closed Auto-Generate d Referral 05/09/2024 06/08/2025 1 1 Specialty Diagnoses / Procedures Referred By Contac t Referred To Contact [facility] Diagnoses Pulmonary emphysema, unspecified emphysema type (HCC) Procedures OXIMETRY WITH AMBULATION NONINVASIVE EAR/PULSE OXIMETRY MULTIPLE DETER Renetta Chery, ENGINEER SERGEANT.[facility] [address] [place] [address] Phone: tel: fax: Respiratory [address] [address] Referral ID Status Reason Start Date Expiration Date V isits Requested Visits Authorized [id number] Closed Auto-Generate d Referral 05/09/2024 06/08/2025 1 1 Reason Comments Established Patient Follow-Up Reason Comments Left Hip Pain Referred by Dr. Elizabeth callahan Specialty Diagnoses / Procedures Referred By Contac t Referred To Contact Orthopedics Diagnoses Left hip pain Procedures CONSULT TO ORTHOPAEDICS OFFICE/OUTPATIENT [facility] 60 MINUTES Otilia Lopez MD [address] [place] [address] Phone: tel: fax: Referral ID Status Reason Start Date Expiration Date V isits Requested Visits Authorized [id number] Closed PCP Requested Referral 10/28/2024 10/28/2025 1 1 Reason Onset Date Comments Refill Request 12/16/2024 Reason Comments New Pain Reason Comments Medical Clearance Reason Comments Forms Surgical clearance Reason Comments 6 Month Exam Care Teams (unrecognized sec tion and content) Team Status: Active Member Role Status Dates Dr. Otilia Lopez MD Primary Care Provider Active Team Status: Inactive Member Role Status Dates Dr. Otilia Lopez MD Primary Care Provider Active Out of Town Doctor Attending Provider Active Team Status: Inactive Member Role Status Dates Dr. Otilia Lopez MD Primary Care Provider Active Out of Town Doctor Attending Provider, Referring Provi lynette Active Electronic Data Interchange Specialist Relationship Specialty Start Date End Date Otilia Lopez MD [address] [place], [place] [id number] PCP - General Family Medicine 11/17/17 Sherley Acosta MD, [address] [place], [place] [address] Physician Radiation Oncology 08/15/16 Electronic Data Interchange Specialist Relationship Specialty Start Date End Date Otilia Lopez MD [address] [place], [place] [id number] PCP - General Family Medicine 11/17/17 Sherley Acosta MD, [address] [place], [place] [phone] Physician Radiation Oncology 08/15/16 Otilia Lopez MD [address] [place], [place] [id number] Home Care Provider Family Medicine 09/05/22 Dylon Medina MD [address] [place] [address] Referring Internal Medicine 09/06/22 Ward Chacon RN [address] [place] [address] Data Analytics Architect Post Acute Care 09/06/22 Electronic Data Interchange Specialist Relationship Specialty Start Date End Date Otilia Lopez MD [address] [place], [place] 146869 [phone] PCP - General Family Medicine 11/17/17 Sherley Acosta MD, MD [address] [place], [place] 100605 [phone] Physician Radiation Oncology 08/15/16 Otilia Lopez MD [address] [place], [place] 14[address]68 [phone] Home Care Provider Family Medicine 09/05/22 Dylon Medina MD [address] [place], [place] [phone] Referring Internal Medicine 09/06/22 Ward Chacon RN [address] [place] [address] Data Analytics Architect Post Acute Care 09/06/22 Electronic Data Interchange Specialist Relationship Specialty Start Date End Date Otilia Lopez MD [address] [place], [place] [id number] PCP - General Family Medicine 11/17/17 Sherley Acosta MD, MD [address] [place] [address] Physician Radiation Oncology 08/15/16 Otilia Lopez MD [address] [place] [address] Home Care Provider Family Medicine 09/05/22 Dylon Medina MD [address] [place], [place] [phone] Referring Internal Medicine 09/06/22 Ward Chacon, RN [address] [place] [address] Data Analytics Architect Post Acute Care 09/06/22 Electronic Data Interchange Specialist Relationship Specialty Start Date End Date Otilia Lopez MD [address] [place] [address] PCP - General Family Medicine 11/17/17 Sherley Acosta MD, [address] [place] [address] Physician Radiation Oncology 08/15/16 Otilia Lopez MD [address] [place] [address] Home Care Provider Family Medicine 09/05/22 Dylon Medina MD [address] [place], [place] [phone] Referring Internal Medicine 09/06/22 Ward Chacon, SHARDA [address] [place], [place] [id number] Data Analytics Architect Post Acute Care 09/06/22 Electronic Data Interchange Specialist Relationship Specialty Start Date End Date Otilia Lopez MD [address] [place] [address] PCP - General Family Medicine 11/17/17 Sherley Acosta MD, [address] [place] [address] Physician Radiation Oncology 08/15/16 Otilia Lopez MD [address] [place] [address] Home Care Provider Family Medicine 09/05/22 Dylon Medina MD [address] [place], [place] [phone] Referring Internal Medicine 09/06/22 Ward Chacon RN [address] [place], [place] [id number] Data Analytics Architect Post Acute Care 09/06/22 Electronic Data Interchange Specialist Relationship Specialty Start Date End Date Otilia Lopez MD [address] [place] [address] PCP - General Family Medicine 11/17/17 Sherley Acosta MD, [address] [place] [address] Physician Radiation Oncology 08/15/16 Otilai Lopez MD [address] [place] [address] Home Care Provider Family Medicine 09/05/22 Dylon Medina MD [address] [place], [place] [phone] Referring Internal Medicine 09/06/22 Ward Chacon RN [address] [place], [place] [id number] Data Analytics Architect Post Acute Care 09/06/22 Electronic Data Interchange Specialist Relationship Specialty Start Date End Date Otilia Lopez MD [address] [place] [address] PCP - General Family Medicine 11/17/17 Sherley Acosta MD, [address] [place] [address] Physician Radiation Oncology 08/15/16 Otilia Lopez MD [address] [place] [address] Home Care Provider Family Medicine 09/05/22 Dylon Medina MD [address] [place], [place] [phone] Referring Internal Medicine 09/06/22 Wrad Chacon RN [address] [place] [address] Data Analytics Architect Post Acute Care 09/06/22 Electronic Data Interchange Specialist Relationship Specialty Start Date End Date Otilia Lopez MD [address] [place] [address] PCP - General Family Medicine 11/17/17 Sherley Acosta MD, [address] [place] [address] Physician Radiation Oncology 08/15/16 Otilia Lopez MD [address] [place] [address] Home Care Provider Family Medicine 09/05/22 Dylon Medina MD [address] [place], [place] [phone] Referring Internal Medicine 09/06/22 Ward Chacon RN [address] [place], [place] [phone] Data Analytics Architect Post Acute Care 09/06/22 Electronic Data Interchange Specialist Relationship Specialty Start Date End Date Otilia Lopez MD [address] [place] [address] PCP - General Family Medicine 11/17/17 Sherley Acosta MD, [address] [place] [address] Physician Radiation Oncology 08/15/16 Otilia Lopez MD [address] [place] [address] Home Care Provider Family Medicine 09/05/22 Dylon Medina MD [address] [place], [place] [phone] Referring Internal Medicine 09/06/22 Ward Chacon RN [address] [place], [place] [phone] Data Analytics Architect Post Acute Care 09/06/22 Electronic Data Interchange Specialist Relationship Specialty Start Date End Date Otilia Lopez MD [address] [place] [address] PCP - General Family Medicine 11/17/17 Sherley Acosta MD, [address] [place] [address] Physician Radiation Oncology 08/15/16 Otilia Lopez MD [address] [place] [address] Home Care Provider Family Medicine 09/05/22 Dylon Medina MD [address] [place], [place] [phone] Referring Internal Medicine 09/06/22 Ward Chacon RN [address] [place], [place] [id number] Data Analytics Architect Post Acute Care 09/06/22 Electronic Data Interchange Specialist Relationship Specialty Start Date End Date Otilia Lopez MD [address] [place] [address] PCP - General Family Medicine 11/17/17 Sherley Acosta MD, [address] [place] [address] Physician Radiation Oncology 08/15/16 Otilia Lopez MD [address] [place] [address] Home Care Provider Family Medicine 09/05/22 Dylon Medina MD [address] [place], [place] [phone] Referring Internal Medicine 09/06/22 Ward Chacon RN [address] [place] [address] Data Analytics Architect Post Acute Care 09/06/22 Electronic Data Interchange Specialist Relationship Specialty Start Date End Date Otilia Lopez MD [address] [place] [address] PCP - General Family Medicine 11/17/17 Sherley Acosta MD, MD [address] [place] [address] Physician Radiation Oncology 08/15/16 Otilia Lopez MD [address] [place] [address] Home Care Provider Family Medicine 09/05/22 Dylon Medina MD [address] [place], [place] [phone] Referring Internal Medicine 09/06/22 Ward Chacon RN [address] [place], [place] [phone] Data Analytics Architect Post Acute Care 09/06/22 Electronic Data Interchange Specialist Relationship Specialty Start Date End Date Otilia Lopez MD [address] [place] [address] PCP - General Family Medicine 11/17/17 Sherley Acosta MD, [address] [place] [address] Physician Radiation Oncology 08/15/16 Otilia Lopez MD [address] [place] [address] Home Care Provider Family Medicine 09/05/22 Dylon Medina MD [address] [place], [place] [phone] Referring Internal Medicine 09/06/22 Ward Chacon RN [address] [place], [place] [id number] Data Analytics Architect Post Acute Care 09/06/22 Electronic Data Interchange Specialist Relationship Specialty Start Date End Date Otilia Lopez MD [address] [place] [address] PCP - General Family Medicine 11/17/17 Sherley Acosta MD, [address] [place] [address] Physician Radiation Oncology 08/15/16 Otilia Lopez MD [address] [place] [address] Home Care Provider Family Medicine 09/05/22 Dylon Medina MD [address] [place], [place] [phone] Referring Internal Medicine 09/06/22 Ward Chacon RN [address] [place], [place] [phone] Data Analytics Architect Post Acute Care 09/06/22 Electronic Data Interchange Specialist Relationship Specialty Start Date End Date Otilia Lopez MD [address] [place] [address] PCP - General Family Medicine 11/17/17 Sherley Acosta MD, [address] [place] [address] Physician Radiation Oncology 08/15/16 Otilia Lopez MD [address] [place] [address] Home Care Provider Family Medicine 09/05/22 Dylon Medina MD [address] [place], [place] [phone] Referring Internal Medicine 09/06/22 Ward Chacon RN [address] [place], [place] [phone] Data Analytics Architect Post Acute Care 09/06/22 Electronic Data Interchange Specialist Relationship Specialty Start Date End Date Otilia Lopez MD [address] [place] [address] PCP - General Family Medicine 11/17/17 Sherley Acosta MD, [address] [place] [address] Physician Radiation Oncology 08/15/16 Otilai Lopez MD [address] [place] [address] Home Care Provider Family Medicine 09/05/22 Dylon Medina MD [address] [place], [place] [phone] Referring Internal Medicine 09/06/22 Ward Chacon RN [facility] [place], [place] [id number] Data Analytics Architect Post Acute Care 09/06/22 Electronic Data Interchange Specialist Relationship Specialty Start Date End Date Otilia Lopez MD [address] [place] [address] PCP - General Family Medicine 11/17/17 Sherley Acosta MD, [address] [place] [address] Physician Radiation Oncology 08/15/16 Otilia Lopez MD [address] [place] [address] Home Care Provider Family Medicine 09/05/22 Dylon Medina MD [address] [place], [place] [phone] Referring Internal Medicine 09/06/22 Ward Chacon RN [address] [place], [place] [phone] Data Analytics Architect Post Acute Care 09/06/22 Electronic Data Interchange Specialist Relationship Specialty Start Date End Date Otilia Lopez MD [address] [place] [address] PCP - General Family Medicine 11/17/17 Sherley Acosta MD, MD [address] [place] [address] Physician Radiation Oncology 08/15/16 Otilia Lopez MD [address] [place] [address] Home Care Provider Family Medicine 09/05/22 Dylon Medina MD [address] [place], [place] [phone] Referring Internal Medicine 09/06/22 Ward Chacon, SHARDA [address] [place], [place] [phone] Data Analytics Architect Post Acute Care 09/06/22 Electronic Data Interchange Specialist Relationship Specialty Start Date End Date Otilia Lopez MD [address] [place] [address] PCP - General Family Medicine 11/17/17 Sherley Acosta MD, MD [address] [place] [address] Physician Radiation Oncology 08/15/16 Otilia Lopez MD [address] [place] [address] Home Care Provider Family Medicine 09/05/22 Dylon Medina MD [address] [place] [address] Referring Internal Medicine 09/06/22 Ward Chacon, SHARDA [address] [place], [place] [phone] Data Analytics Architect Post Acute Care 09/06/22 Electronic Data Interchange Specialist Relationship Specialty Start Date End Date Otilia Lopez MD [address] [place] [address] PCP - General Family Medicine 11/17/17 Sherley Acosta MD, MD [address] [place] [address] Physician Radiation Oncology 08/15/16 Otilia Lopez MD [address] [place] [address] Home Care Provider Family Medicine 09/05/22 Dylon Medina MD [address] [place], [place] [phone] Referring Internal Medicine 09/06/22 Ward Chacon, RN [address] [place], [place] [phone] Data Analytics Architect Post Acute Care 09/06/22 Electronic Data Interchange Specialist Relationship Specialty Start Date End Date Otilia Lopez MD [address] [place] [address] PCP - General Family Medicine 11/17/17 Sherley Acosta MD, [address] [place] [address] Physician Radiation Oncology 08/15/16 Otilia Lopez MD [address] [place] [address] Home Care Provider Family Medicine 09/05/22 Dylon Medina MD [address] [place], [place] [phone] Referring Internal Medicine 09/06/22 Ward Chacon, SHARDA [address] [place] [address] Data Analytics Architect Post Acute Care 09/06/22 Electronic Data Interchange Specialist Relationship Specialty Start Date End Date Otilia Lopez MD [address] [place] [address] PCP - General Family Medicine 11/17/17 Sherley Acosta MD, [address] [place] [address] Physician Radiation Oncology 08/15/16 Otilia Lopez MD [address] [place] [address] Home Care Provider Family Medicine 09/05/22 Dylon Medina MD [address] [place] [address] Referring Internal Medicine 09/06/22 Electronic Data Interchange Specialist Relationship Specialty Start Date End Date Otilia Lopez MD [address] [place] [address] PCP - General Family Medicine 11/17/17 Sherley Acosta MD, MD [address] [place] [address] Physician Radiation Oncology 08/15/16 Otilia Lopez MD [address] [place] [address] Home Care Provider Family Medicine 09/05/22 Dylon Medina MD [address] [place], [place] [phone] Referring Internal Medicine 09/06/22 Electronic Data Interchange Specialist Relationship Specialty Start Date End Date Otilia Lopez MD [address] [place] [address] PCP - General Family Medicine 11/17/17 Sherley Acosta MD, MD [address] [place] [address] Physician Radiation Oncology 08/15/16 Otilia Lopez MD [address] [place] [address] Home Care Provider Family Medicine 09/05/22 Dylon Medina MD [address] [place], [place] [phone] Referring Internal Medicine 09/06/22 Electronic Data Interchange Specialist Relationship Specialty Start Date End Date Otilia Lopez MD [address] [place], [place] 003391 PCP - General Family Medicine 11/17/17 Sherley Acosta MD, [address] [place], [place] [phone] Physician Radiation Oncology 08/15/16 Otilia Lopez MD [address] [place], [place] [phone] Home Care Provider Family Medicine 09/05/22 Dylon Medina MD [address] [place], [place] [phone] Referring Internal Medicine 09/06/22 Team Status: Active Member Role Status Dates Dr. Otilia Lopez MD Primary Care Provider Active Dr. Anjali Escobar , DO Emergency Provider Active Dr. Alex Boles MD Admit Provi lynette, Attending Provider, Other Provider Active Team Status: Active Member Role Status Dates Dr. Otilia Lopez MD Primary Care Provider Active Dr. Anjali Escobar DO Emergency Provider Active Dr. Alex Boles MD Admit Provider, Other Pro vider Active Dr. Chas Mcmahon MD Attending Provider, Other Provi lynette Active Dr. Otilia Abbott , DO Referring Provider Active Team Status: Active Member Role Status Dates Dr. Otilia Lopez MD Primary Care Provider Active Dr. Anjali Escobar DO Emergency Provider Active Dr. Alex Boles MD Admit Provider, Other Pro vider Active Dr. Chas Mcmahon MD Attending Provider, Other Provi lynette Active Dr. Otilia Abbott , DO Other Provider Active Team Status: Active Member Role Status Dates Dr. Otilia Lopez MD Primary Care Provider Active Dr. Anjali Escobar DO Emergency Provider Active Dr. Alex Boles MD Admit Provider, Other Pro vider Active Dr. Chas Mcmahon MD Other Provider Active Dr. Otilia Abbott DO Attending Provider, Other Pro vider Active Team Status: Active Member Role Status Dates Dr. Otilia Lopez MD Primary Care Provider Active Dr. Anjali Escobar DO Emergency Provider Active Dr. Alex Boles MD Admit Provider, Other Pro vider Active Dr. Chas Mcmahon MD Other Provider Active Dr. Otilia Abbott DO Other Provider Active Dr. Vivek Moncada MD Attending Provider Active Team Status: Active Member Role Status Dates Dr. Otilia Lopez MD Primary Care Provider Active Dr. Sunny White MD Attending Provider Active Dr. Alex Boles MD Referring Provider Active Team Status: Inactive Member Role Status Dates Dr. Otilia Lopez MD Primary Care Provider Active Dr. Anjali Escobar , Emergency Provider Active Dr. Alex Boles MD Admit Provider, Other Pro vider Active Dr. Chas Mcmahon MD Other Provider Active Dr. Otilia Abbott DO Attending Provider Active Team Status: Active Member Role Status Dates Dr. Otilia Lopez MD Primary Care Provider Active Out of Town Doctor Attending Provider, Referring Provi lynette Active Electronic Data Interchange Specialist Relationship Specialty Start Date End Date Otilia Lopez MD [address] [place], [place] [id number] PCP - General Family Medicine 11/17/17 Sherley Acosta MD, [address], [place] [id number] Physician Radiation Oncology 08/15/16 Otilia Lopez MD [address] [place], [place] [id number] Home Care Provider Family Medicine 09/05/22 Dylon Medina MD [address] [place], [place] [id number] Referring Internal Medicine 09/06/22 Ward Chacon, RN [address] [place], [place] [id number] Data Analytics Architect Post Acute Care 09/06/22 11/01/22 Electronic Data Interchange Specialist Relationship Specialty Start Date End Date Otilia Lopez MD [address] [place] [address] PCP - General Family Medicine 11/17/17 Sherley Acosta MD, [address] [place] [address] Physician Radiation Oncology 08/15/16 Otilia oLpez MD [address] [place] [address] Home Care Provider Family Medicine 09/05/22 Dylon Medina MD [address] [place] [address] Referring Internal Medicine 09/06/22 Electronic Data Interchange Specialist Relationship Specialty Start Date End Date Otilia Lopez MD [address] [place] [address] PCP - General Family Medicine 11/17/17 Sherley Acosta MD [address] [place] [address] Physician Radiation Oncology 08/15/16 Otilia Lopez MD [address] [place] [address] Home Care Provider Family Medicine 09/05/22 Dylon Medina MD [address] [place] [address] Referring Internal Medicine 09/06/22 Electronic Data Interchange Specialist Relationship Specialty Start Date End Date Otilia Lopez MD [address] [place] [address] PCP - General Family Medicine 11/17/17 Sherley Acosta MD [address] [place] [address] Physician Radiation Oncology 08/15/16 Otilia Lopez MD [address] [place] [address] Home Care Provider Family Medicine 09/05/22 Dylon Medina MD [address] [place] [address] Referring Internal Medicine 09/06/22 Electronic Data Interchange Specialist Relationship Specialty Start Date End Date Otilia Lopez MD [address] [place] [address] PCP - General Family Medicine 11/17/17 Sherley Acosta MD [address] [place] [address] Physician Radiation Oncology 08/15/16 Otilia Lopez MD [address] [place] [address] Home Care Provider Family Medicine 09/05/22 Dylon Medina MD [address] [place] [address] Referring Internal Medicine 09/06/22 Electronic Data Interchange Specialist Relationship Specialty Start Date End Date Otilia Lopez MD [address] [place] [address] PCP - General Family Medicine 11/17/17 Sherley Acosta MD [address] [place] [address] Physician Radiation Oncology 08/15/16 Otilia Lopez MD [address] [place] [address] Home Care Provider Family Medicine 09/05/22 Dylon Medina MD [address] [place] [address] Referring Internal Medicine 09/06/22 Electronic Data Interchange Specialist Relationship Specialty Start Date End Date Otilia Lopez MD [address] [place] [address] PCP - General Family Medicine 11/17/17 Sherley Acosta MD [address] [place] [address] Physician Radiation Oncology 08/15/16 Otilia Lopez MD [address] [place] [address] Home Care Provider Family Medicine 09/05/22 Dylon Medina MD [address] [place] [address] Referring Internal Medicine 09/06/22 Team Status: Inactive Member Role Status Dates Dr. Otilia Lopez MD Primary Care Provider Active Dr. Amadou Wadsworth MD Emergency Provider Active Electronic Data Interchange Specialist Relationship Specialty Start Date End Date Otilia Lopez MD [address] [place] [address] PCP - General Family Medicine 11/17/17 Sherley Acosta MD [address] [place] [address] Physician Radiation Oncology 08/15/16 Otilia Lopez MD [address] [place] [address] Home Care Provider Family Medicine 09/05/22 Dylon Medina MD [address] [place] [address] Referring Internal Medicine 09/06/22 Electronic Data Interchange Specialist Relationship Specialty Start Date End Date Otilia Lopez MD [address] [place] [address] PCP - General Family Medicine 11/17/17 Sherley Acosta MD [address] [place] [address] Physician Radiation Oncology 08/15/16 Otilia Lopez MD [address] [place] [address] Home Care Provider Family Medicine 09/05/22 Dylon Medina MD [address] [place] [address] Referring Internal Medicine 09/06/22 Electronic Data Interchange Specialist Relationship Specialty Start Date End Date Otilia Lopez MD [address] [place] [address] PCP - General Family Medicine 11/17/17 Sherley Acosta MD [address] [place] [address] Physician Radiation Oncology 08/15/16 Otilia Lopez MD [address] [place] [address] Home Care Provider Family Medicine 09/05/22 Dylon Medina MD [address] [facility] [place] [address] Referring Internal Medicine 09/06/22 Electronic Data Interchange Specialist Relationship Specialty Start Date End Date Otilia Lopez MD [address] [place] [address] PCP - General Family Medicine 11/17/17 Sherley Acosta MD [address] [place] [address] Physician Radiation Oncology 08/15/16 Otilia Lopez MD [address] [place] [address] Home Care Provider Family Medicine 09/05/22 Dylon Medina MD [address] [place] [address] Referring Internal Medicine 09/06/22 Electronic Data Interchange Specialist Relationship Specialty Start Date End Date Otilia Lopez MD [address] [place] [address] PCP - General Family Medicine 11/17/17 hSerley Acosta MD [address] [place] [address] Physician Radiation Oncology 08/15/16 Otilia Lopez MD [address] [place] [address] Home Care Provider Family Medicine 09/05/22 Dylon Medina MD [address] [place] [address] Referring Internal Medicine 09/06/22 Electronic Data Interchange Specialist Relationship Specialty Start Date End Date Otilia Lopez MD [address] [place] [address] PCP - General Family Medicine 11/17/17 Sherley Acosta MD [address] [place] [address] Physician Radiation Oncology 08/15/16 Otilia Lopez MD [address] [place] [address] Home Care Provider Family Medicine 09/05/22 Dylon Medina MD [address] [place] [address] Referring Internal Medicine 09/06/22 Electronic Data Interchange Specialist Relationship Specialty Start Date End Date Otilia Lopez MD [address] [place] [address] PCP - General Family Medicine 11/17/17 Sherley Acosta MD [address] [place] [address] Physician Radiation Oncology 08/15/16 Otilia Lopez MD [address] [place], [place] [phone] Home Care Provider Family Medicine 09/05/22 Dylon Medina MD [address] [place] [address] Referring Internal Medicine 09/06/22 Electronic Data Interchange Specialist Relationship Specialty Start Date End Date Otilia Lopez MD [address] [place] [address] PCP - General Family Medicine 11/17/17 Sherley Acosta MD [address] [place] [address] Physician Radiation Oncology 08/15/16 Otilia Lopez MD [address] [place] [address] Home Care Provider Family Medicine 09/05/22 Dylon Medina MD [address] [place] [address] Referring Internal Medicine 09/06/22 Electronic Data Interchange Specialist Relationship Specialty Start Date End Date Otilia Lopez MD [address] [place] [address] PCP - General Family Medicine 11/17/17 Sherley Acosta MD [address] [place] [address] Physician Radiation Oncology 08/15/16 Otilia Lopez MD [address] [place] [address] Home Care Provider Family Medicine 09/05/22 Dylon Medina MD [address] [place] [address] Referring Internal Medicine 09/06/22 Electronic Data Interchange Specialist Relationship Specialty Start Date End Date Otilia Lopez MD [address] [place] [address] PCP - General Family Medicine 11/17/17 Sherley Acosta MD [address] [place] [address] Physician Radiation Oncology 08/15/16 Otilia Lopez MD [address] [place] [address] Home Care Provider Family Medicine 09/05/22 Dylon Medina MD [address] [place] [address] Referring Internal Medicine 09/06/22 Electronic Data Interchange Specialist Relationship Specialty Start Date End Date Otilia Lopez MD [address] [place] [address] PCP - General Family Medicine 11/17/17 Sherley Acosta MD [address] [place] [address] Physician Radiation Oncology 08/15/16 Otilia Lopez MD [address] [place] [address] Home Care Provider Family Medicine 09/05/22 Dylon Medina MD [address] [place] [address] Referring Internal Medicine 09/06/22 Electronic Data Interchange Specialist Relationship Specialty Start Date End Date Otilia Lopez MD [address] [place] [address] PCP - General Family Medicine 11/17/17 Sherley Acosta MD [address] [place] [address] Physician Radiation Oncology 08/15/16 Otilia Lopez MD [address] [place] [address] Home Care Provider Family Medicine 09/05/22 Dylon Medina MD [address] [place] [address] Referring Internal Medicine 09/06/22 Mary Gutiérrez APRN.LAST GREASER [address] [place] [address] Mother'S Helper Family Medicine 08/04/24 Electronic Data Interchange Specialist Relationship Specialty Start Date End Date Otilia Lopez MD [address] [place] [address] PCP - General Family Medicine 11/17/17 Sherley Acosta MD [address] [place] [address] Physician Radiation Oncology 08/15/16 Otilia Lopez MD [address] [place] [address] Home Care Provider Family Medicine 09/05/22 Dylon Medina MD [address] [place] [address] Referring Internal Medicine 09/06/22 Mary Gutiérrez APRN.LAST GREASER [address] [place] [address] Mother'S Helper Family Medicine 08/04/24 Electronic Data Interchange Specialist Relationship Specialty Start Date End Date Otilia Lopez MD [address] [place] [address] PCP - General Family Medicine 11/17/17 Sherley Acosta MD [address] [place] [address] Physician Radiation Oncology 08/15/16 Otilia Lopez MD [address] [place] [address] Home Care Provider Family Medicine 09/05/22 Dylon Medina MD [address] [place] [address] Referring Internal Medicine 09/06/22 Mary Gutiérrez APRN.LAST GREASER [address] [place] [address] Mother'S Helper Family Medicine 08/04/24 Jens Candelaria APRN.LAST GREASER [address] [place] [address] Mother'S Helper Family Medicine 08/13/24 Electronic Data Interchange Specialist Relationship Specialty Start Date End Date Otilia Lopez MD [address] [place] [address] PCP - General Family Medicine 11/17/17 Sherley Acosta MD [address] [place] [address] Physician Radiation Oncology 08/15/16 Otilia Lopez MD [address] [place] [address] Home Care Provider Family Medicine 09/05/22 Dylon Medina MD [address] [place] [address] Referring Internal Medicine 09/06/22 Mary Gutiérrez APRN.LAST GREASER [address] [place] [address] Mother'S Helper Family Medicine 08/04/24 Jens Candelaria APRN.LAST GREASER [address] [place] [address] Mother'S Helper Family [facility] 08/13/24 Electronic Data Interchange Specialist Relationship Specialty Start Date End Date Otilia Lopez MD [address] [place] [address] PCP - General Family Medicine 11/17/17 Sherley Acosta MD [address] [facility] [place] [address] Physician Radiation Oncology 08/15/16 Otilia Lopez MD [address] [place] [address] Home Care Provider Family Medicine 09/05/22 Dylon Medina MD [address] [place] [address] Referring Internal Medicine 09/06/22 Mary Gutiérrez APRN.LAST GREASER [address] [place] [address] Mother'S Helper Family Medicine 08/04/24 Jens Candelaria APRN.LAST GREASER [address] [place] [address] Mother'S Helper Family Medicine 08/13/24 Electronic Data Interchange Specialist Relationship Specialty Start Date End Date Otilia Lopez MD [address] [place] [address] PCP - General Family Medicine 11/17/17 Sherley Acosta MD [address] [place] [address] Physician Radiation Oncology 08/15/16 Otilia Lopez MD [address] [place] [address] Home Care Provider Family Medicine 09/05/22 Dylon Medina MD [address] [place] [address] Referring Internal Medicine 09/06/22 Mary Gutiérrez APRN.LAST GREASER [address] [place] [address] Mother'S Helper Family Medicine 08/04/24 Jens Candelaria APRN.LAST GREASER [address] [place] [address] Mother'S Helper Family Medicine 08/13/24 Electronic Data Interchange Specialist Relationship Specialty Start Date End Date Otilia Lopez MD [address] [place] [address] PCP - General Family Medicine 11/17/17 Sherley Acosta MD [address] [place] [address] Physician Radiation Oncology 08/15/16 Otilia Lopez MD [address] [place] [address] Home Care Provider Family Medicine 09/05/22 Dylon Medina MD [address] [place] [address] Referring Internal Medicine 09/06/22 Mary Gutiérrez APRN.LAST GREASER [address] [place] [address] Mother'S Helper Family Medicine 08/04/24 Jens Candelaria, ENGINEER SERGEANT.LAST GREASER [address] [place] [address] Mother'S Helper Family Medicine 08/13/24 Patito Amaral MD [address] [place] [address] Pulmonary Disease 10/23/24 Electronic Data Interchange Specialist Relationship Specialty Start Date End Date Otilia Lopez MD [address] [place] [address] PCP - General Family Medicine 11/17/17 Sherley Acosta MD [address] [place] [address] Physician Radiation Oncology 08/15/16 Otilia Lopez MD [address] [place] [address] Home Care Provider Family Medicine 09/05/22 Dylon Medina MD [address] [place] [address] Referring Internal Medicine 09/06/22 Mary Gutiérrez APRN.LAST GREASER [address] [place] [address] Mother'S Helper Family Medicine 08/04/24 Jens Candelaria APRN.LAST GREASER [address] [place] [address] Mother'S Helper Family Medicine 08/13/24 Patito [facility]al MD [facility] [place] [place] [id number] Pulmonary Disease 10/23/24 Electronic Data Interchange Specialist Relationship Specialty Start Date End Date Otilia Lopez MD [address] [place] [address] PCP - General Family Medicine 11/17/17 Sherley Acosta MD [address] [place] [address] Physician Radiation Oncology 08/15/16 Otilia Lopez MD [address] [place] [address] Home Care Provider Family Medicine 09/05/22 Dylon Medina MD [address] [place] [address] Referring Internal Medicine 09/06/22 Mary Gutiérrez APRN.LAST GREASER [address] [place] [address] Mother'S Helper Family Medicine 08/04/24 Jens Candelaria APRN.LAST GREASER [address] [place] [address] Mother'S Helper Family Medicine 08/13/24 Patito Amaral MD [address] [place] [address] Pulmonary Disease 10/23/24 Electronic Data Interchange Specialist Relationship Specialty Start Date End Date Otilia Lopez MD [address] [place] [address] PCP - General Family Medicine 11/17/17 Sherley Acosta MD [address] [place] [address] Physician Radiation Oncology 08/15/16 Otilia Lopez MD [address] [place] [address] Home Care Provider Family Medicine 09/05/22 Dylon Medina MD [address] [place] [address] Referring Internal Medicine 09/06/22 Mary Gutiérrez APRN.LAST GREASER [address] [place] [address] Mother'S Helper Family [facility] 08/04/24 Jens Candelaria APRN.LAST GREASER [address] [place] [address] Mother'S Helper Family Medicine 08/13/24 Patito Amaral MD [address] [place], [place] [id number] Pulmonary Disease 10/23/24 Electronic Data Interchange Specialist Relationship Specialty Start Date End Date Otilia Lopez MD [address] [place], [place] [address] PCP - General Family Medicine 11/17/17 Sherley Acosta MD [address], [place] [address] Physician Radiation Oncology 08/15/16 Otilia Lopez MD [address] [place] [address] Home Care Provider Family Medicine 09/05/22 Dylon Medina MD [address] [place] [address] Referring Internal Medicine 09/06/22 Mary Gutiérrez APRN.LAST GREASER [address] [place] [address] Mother'S Helper Family Medicine 08/04/24 Jens Candelaria, ENGINEER SERGEANT.LAST GREASER [address] [place] [address] Mother'S Helper Family Medicine 08/13/24 Patito Amaral MD [address] [place], [place] [id number] Pulmonary Disease 10/23/24 Electronic Data Interchange Specialist Relationship Specialty Start Date End Date Otilia Lopez MD [address] [place] [address] PCP - General Family Medicine 11/17/17 Sherley Acosta MD [address] [place] [address] Physician Radiation Oncology 08/15/16 Otilia Lopez MD [address] [place] [address] Home Care Provider Family Medicine 09/05/22 Dylon Medina MD [address] [place] [address] Referring Internal Medicine 09/06/22 Mary Gutiérrez APRN.LAST GREASER [address] [place] [address] Mother'S Helper Family Medicine 08/04/24 Jens Candelaria APRN.LAST GREASER [address] [place] [address] Mother'S Helper Family Medicine 08/13/24 Patito Amaral MD [address] [place] [address] Pulmonary Disease 10/23/24 Electronic Data Interchange Specialist Relationship Specialty Start Date End Date Otilia Lopez MD [address] [place] [address] PCP - General Family Medicine 11/17/17 Sherley Acosta MD [address] [place] [address] Physician Radiation Oncology 08/15/16 Otilia Lopez MD [address] [facility] [place] [address] Home Care Provider Family Medicine 09/05/22 Dylon Medina MD [address] [place] [address] Referring Internal Medicine 09/06/22 Mary Gutiérrze APRN.LAST GREASER [address] [place] [address] Mother'S Helper Family Medicine 08/04/24 Jens Candelaria APRN.LAST GREASER [address] [place] [address] Mother'S Helper Family Medicine 08/13/24 Patito Amaral MD [address] [place] [address] Pulmonary Disease 10/23/24 Electronic Data Interchange Specialist Relationship Specialty Start Date End Date Otilia Lopez MD [address] [place] [address] PCP - General Family Medicine 11/17/17 Sherley Acosta MD [address] [place] [address] Physician Radiation Oncology 08/15/16 Otilia Lopez MD [address] [place] [address] Home Care Provider Family Medicine 09/05/22 Dylon Medina MD [address] [place] [address] Referring Internal Medicine 09/06/22 Mary Gutiérrez, ENGINEER SERGEANT.LAST GREASER [address] [place], [place] [address] [facility] 08/04/24 Jens Candelaria, ENGINEER SERGEANT.LAST GREASER [address] [place], [place] [address] [facility] 08/13/24 Patito Amaral MD [address] [place] [address] Pulmonary Disease 10/23/24 Team Status: Inactive Member Role Status Dates Dr. Otilia Lopez MD Primary Care Provider Active Start: October 14, 2024 End: October 17, 2024 Dr. Librado Holm MD Emergency Provider Active Sta rt: October 14, 2024 End: October 17, 2024 Dr. Kate Castillo MD Admit Provider Active Star t: October 14, 2024 End: October 17, 2024 Dr. Kate Castillo MD Referring Provider Active Start: October 14, 2024 End: October 17, 2024 Dr. Kate Castillo MD Other Provider Active Star t: October 14, 2024 End: October 17, 2024 Dr. Blayne Trejo DO Attending Provider Active Start: October 14, 2024 End: October 17, 2024 Dr. Dennis Braun MD Other Provider Active Start: October 14, 2024 End: October 17, 2024 Team Status: Active Member Role Status Dates Dr. Otilia Lopez MD Primary Care Provider Active Start: October 15, 2024 Dr. Librado Holm MD Emergency Provider Active Sta rt: October 15, 2024 Dr. Kate Castillo MD Admit Provider Active Star t: October 15, 2024 Dr. Kate Castillo MD Other Provider Active Star t: October 15, 2024 Dr. Blayne Trejo DO Attending Provider Active Start: October 15, 2024 Dr. Blayne Trejo DO Other Provider Active Start: October 15, 2024 Dr. Dennis Braun MD Other Provider Active Start: October 15, 2024 Team Status: Active Member Role Status Dates Dr. Otilia Lopez MD Primary Care Provider Active Start: October 16, 2024 End: October 16, 2024 Dr. David Muniz MD Attending Provider Active Start: October 16, 2024 End: October 16, 2024 Dr. Kate Castillo MD Referring Provider Active Start: October 16, 2024 End: October 16, 2024 Team Status: Active Member Role Status Dates Dr. Otilia Lopez MD Primary Care Provider Active Start: October 16, 2024 Dr. Librado Holm MD Emergency Provider Active Sta rt: October 16, 2024 Dr. Kate Castillo MD Admit Provider Active Star t: October 16, 2024 Dr. Kate Castillo MD Other Provider Active Star t: October 16, 2024 Dr. Blayne Trejo DO Attending Provider Active Start: October 16, 2024 Dr. Blayne Trejo DO Other Provider Active Start: October 16, 2024 Dr. Dennis Braun MD Other Provider Active Start: October 16, 2024 Team Status: Active Member Role Status Dates Dr. Otilia Lopez MD Primary Care Provider Active Start: October 17, 2024 Dr. Librado Holm MD Emergency Provider Active Sta rt: October 17, 2024 Dr. Kate Castillo MD Admit Provider Active Star t: October 17, 2024 Dr. Kate Castillo MD Other Provider Active Star t: October 17, 2024 Dr. Blayne Trejo DO Attending Provider Active Start: October 17, 2024 Dr. Blayne Trejo DO Other Provider Active Start: October 17, 2024 Dr. Dennis Braun MD Other Provider Active Start: October 17, 2024 Team Status: Inactive Member Role Status Dates Dr. Otilia Lopez MD Primary Care Provider Active Start: October 24, 2024 End: October 24, 2024 Dr. Blayne Trejo DO Attending Provider Active Start: October 24, 2024 End: October 24, 2024 Dr. Blayne Trejo DO Referring Provider Active Start: October 24, 2024 End: October 24, 2024 Electronic Data Interchange Specialist Relationship Specialty Start Date End Date Otilia Lopez MD [address] [place] [address] PCP - General Family Medicine 11/17/17 Sherley Acosta MD [address] [place] [address] Physician Radiation Oncology 08/15/16 Otilia Lopez MD [address] [place] [address] Home Care Provider Family Medicine 09/05/22 Dylon Medina MD [address] [place] [address] Referring Internal Medicine 09/06/22 Mary Gutiérrez, ENGINEER SERGEANT.LAST GREASER [address] [facility] [place] [address] Mother'S Helper Family Medicine 08/04/24 Jens Candelaria ENGINEER SERGEANT.LAST GREASER [address] [facility] [place] [address] Mother'S Helper Family Medicine 08/13/24 Patito Amaral MD [address] [place] [address] Pulmonary Disease 10/23/24 Electronic Data Interchange Specialist Relationship Specialty Start Date End Date Otilia Lopez MD [address] [place] [address] PCP - General Family Medicine 11/17/17 Sherley Acosta MD [address] [place] [address] Physician Radiation Oncology 08/15/16 Otilia Lopez MD [address] [place] [address] Home Care Provider Family Medicine 09/05/22 Dylon Medina MD [address] [place] [address] Referring Internal Medicine 09/06/22 Mary Gutiérrez APRN.LAST GREASER [address] [place] [address] Mother'S Helper Family Medicine 08/04/24 Jens Candelaria APRN.LAST GREASER [address] [place] [address] Mother'S Helper Family Medicine 08/13/24 Patito Amaral MD [address] [place] [address] Pulmonary Disease 10/23/24 Electronic Data Interchange Specialist Relationship Specialty Start Date End Date Otilia Lopez MD [address] [place] [address] PCP - General Family Medicine 11/17/17 Sherley Acosta MD [address] [place] [address] Physician Radiation Oncology 08/15/16 Otilia Lopez MD [address] [place] [address] Home Care Provider Family Medicine 09/05/22 Dylon Medina MD [address] [place] [address] Referring Internal Medicine 09/06/22 Mary Gutiérrez APRN.LAST GREASER [address] [place] [address] Mother'S Helper Family Medicine 08/04/24 Jens Candelaria APRN.LAST GREASER [address] [place] [address] Mother'S Helper Family Medicine 08/13/24 Patito Amaral MD [address] [place] [address] Pulmonary Disease 10/23/24 Electronic Data Interchange Specialist Relationship Specialty Start Date End Date Otilia Lopez MD [address] [place] [address] PCP - General Family Medicine 11/17/17 Sherley Acosta MD [address] [place] [address] Physician Radiation Oncology 08/15/16 Otilia Lopez MD [address] [place] [address] Home Care Provider Family Medicine 09/05/22 Dylon Medina MD [address] [place] [address] Referring Internal Medicine 09/06/22 Mary Gutiérrez APRN.LAST GREASER [address] [place] [address] Mother'S Helper Family Medicine 08/04/24 Jens Candelaria APRN.LAST GREASER [address] [place] [address] Mother'S Helper Family Medicine 08/13/24 Patito Amaral MD [address] [facility] [place], [place] [id number] Pulmonary Disease 10/23/24 Electronic Data Interchange Specialist Relationship Specialty Start Date End Date Otilia Lopez MD [address] [facility] [place] [address] PCP - General Family Medicine 11/17/17 Sherley Acosta MD [address] [facility] [place] [address] Physician Radiation Oncology 08/15/16 Otilia Lopez MD [address] [place] [address] Home Care Provider Family Medicine 09/05/22 Dylon Medina MD [address] [place] [address] Referring Internal Medicine 09/06/22 Mary Gutiérrez APRN.LAST GREASER [address] [place] [address] Mother'S Helper Family Medicine 08/04/24 Jens Candelaria APRN.LAST GREASER [address] [place] [address] Mother'S Helper Family Medicine 08/13/24 Patito Amaral MD [address] [place], [place] [id number] Pulmonary Disease 10/23/24 Electronic Data Interchange Specialist Relationship Specialty Start Date End Date Otilia Lopez MD [address] [place] [address] PCP - General Family Medicine 11/17/17 Sherley Acosta MD [address] [place] [address] Physician Radiation Oncology 08/15/16 Otilia Lopez MD [address] [place] [address] Home Care Provider Family Medicine 09/05/22 Dylon Medina MD [address] [place] [address] Referring Internal Medicine 09/06/22 Mary Gutiérrez APRN.LAST GREASER [address] [place] [address] Mother'S Helper Family Medicine 08/04/24 Jens Candelaria ENGINEER SERGEANT.LAST GREASER [address] [place] [address] Mother'S Helper Family Medicine 08/13/24 Patito Amaral MD [address] [place] [address] Pulmonary Disease 10/23/24 Electronic Data Interchange Specialist Relationship Specialty Start Date End Date Otilia Lopez MD [address] [place] [address] PCP - General Family Medicine 11/17/17 Sherley Acosta MD [address] [place] [address] Physician Radiation Oncology 08/15/16 Otilia Lopez MD [address] [place] [address] Home Care Provider Family Medicine 09/05/22 Dylon Medina MD [address] [place] [address] Referring Internal Medicine 09/06/22 Mary Gutiérrez, EDUARD.LAST GREASER [address] [place] [address] Mother'S Helper Family Medicine 08/04/24 Jens Candelaria APRN.LAST GREASER [address] [place] [address] Mother'S Helper Family Medicine 08/13/24 Patito Amaral MD [address] [place] [address] Pulmonary Disease 10/23/24 Electronic Data Interchange Specialist Relationship Specialty Start Date End Date Otilia Lopez MD [address] [place] [address] PCP - General Family Medicine 11/17/17 Sherley Acosta MD [address] [place] [address] Physician Radiation Oncology 08/15/16 Otilia Lopez MD [address] [place] [address] Home Care Provider Family Medicine 09/05/22 Dylon Medina MD [address] [place] [address] Referring Internal Medicine 09/06/22 Mary Gutiérrez, ENGINEER SERGEANT.LAST GREASER [address] [place] [address] Mother'S Helper Family Medicine 08/04/24 Jens Candelaria APRN.LAST GREASER [address] [place] [address] Mother'S Helper Family Medicine 08/13/24 Patito Amaral MD [address] [place] [address] Pulmonary Disease 10/23/24 Electronic Data Interchange Specialist Relationship Specialty Start Date End Date Otilia Lopez MD [address] [place] [address] PCP - General Family Medicine 11/17/17 Sherley Acosta MD [address] [facility] [place] [address] Physician Radiation Oncology 08/15/16 Otilia Lopez MD [address] [place] [address] Home Care Provider Family Medicine 09/05/22 Dylon Medina MD [address] [place] [address] Referring Internal Medicine 09/06/22 Mary Gutiérrez APRN.LAST GREASER [address] [place] [address] Mother'S Helper Family Medicine 08/04/24 01/08/25 Jens Candelaria APRN.LAST GREASER [address] [place] [address] Mother'S Helper Family Medicine 08/13/24 Patito Amaral MD [address] [place] [address] Pulmonary Disease 10/23/24 Team Status: Active Member Role/Relationship Status Dates Dr. Otilia Lopez MD Primary Care Provider Active Team Status: Active Member Role/Relationship Status Dates Dr. Otilia Lopez MD Primary Care Provider Active Start: March 03, 2025 Dr. Ranulfo Subramanian DO Emergency Provider Activ e Start: March 03, 2025 Dr. Kate Castillo MD Attending Provider Active Start: March 03, 2025 Team Status: Active Member Role/Relationship Status Dates Dr. Otilia Lopez MD Primary Care Provider Active Start: March 03, 2025 Dr. Ranulfo Subramanian , DO Emergency Provider Activ e Start: March 03, 2025 Dr. Kate Castillo MD Admit Provider Active Star t: March 03, 2025 Dr. Kate Castillo MD Attending Provider Active Start: March 03, 2025 Dr. Kate Castillo MD Referring Provider Active Start: March 03, 2025 (unrecognized sect ion and content) No Status Records FoundNo Status Records FoundNo Status Records Found INFORMATION SOURCE (unrecogn ized section and content) DATE CREATED AUTHOR 11/08/2024 [facility] DATE CREATED AUTHOR AUTHOR'S ORGANIZ ATION 12/30/2024 [facility] DATE CREATED AUTHOR AUTHOR'S ORGANIZ ATION 01/22/2025 [facility] FOR RECORDS PERTAINING TO PATIENTS WHO ARE OR HAVE BEEN ENROLLED IN A CHEMICAL DEPENDENCY/SUBSTANCEABUSE PROGRAM, SOME INFORMATION MAY BE OMITTED. This clinical summary was aggregated from multiple sources. Caution should be exercised in using it in the provision of clinical care. This summary normalizes information from multiple sources, and as a consequence, information in this document may materially change the coding, format and clinical context of patient data. In addition, data may be omitted in some cases. CLINICAL DECISIONS SHOULD BE BASED ON THE PRIMARY CLINICAL RECORDS. [employer] provides no warranty or guarantee of the accuracy or completeness of information in this document.
== END 2025-03-05 15:15 | disposition home or self-care (01) | DRG 381 ==
LOC: ED 14:45 → PCU 15:11
PROVIDERS: Emergency Medicine; Internal Medicine Gastroenterology; Admitting Provider Internal Medicine; Emergency Provider Surgery; PCP Family Medicine; Referring Provider Internal Medicine; Visit Provider Internal Medicine
PROC: 0DJ08ZZ Inspection of Upper Intestinal Tract, Via Natural or Artificial Opening Endoscopic (ICD-10-PCS; CPT 43235; principal; 2025-03-04 16:10)
DX: K22.11 Ulcer of esophagus with bleeding (principal); D62 Acute posthemorrhagic anemia; K27.4 Chronic or unspecified peptic ulcer, site unspecified, with hemorrhage; J44.9 Chronic obstructive pulmonary disease, unspecified; E78.00 Pure hypercholesterolemia, unspecified; K22.2 Esophageal obstruction; K29.61 Other gastritis with bleeding; Z79.51 Long term (current) use of inhaled steroids; Z79.82 Long term (current) use of aspirin; Z79.899 Other long term (current) drug therapy; Z85.46 Personal history of malignant neoplasm of prostate; Z87.891 Personal history of nicotine dependence
CPT/HCPCS: 36415; 74174; 80048; 80053; 81001; 82274; 85014; 85018; 85025; 85610; 86850; 86900; 86901; 88305; 94640; 94668; 97161; 97166; 99283; C1889; P9016; Q9967; A4216; J2405

== ENCOUNTER → 2025-03-20 | Outpatient (CLI) | payer MEDICARE, SELFPAY ==
[2025-03-06 12:13] VITALS: BMI 20.2
[2025-03-20 16:11] LABS: Hematocrit 27.3 % (40-54); Hemoglobin 8.3 g/dL (13.0-16.5); Immature Granulocytes Count 0.040 X10^3/uL (0.0-0.0); Mean Corp Hgb Conc 30.4 g/dL (32-36); Mean Corpuscular Volume 94.1 fL (80-94); Mean Platelet Vol. 9.9 fl (6.2-12.0); NRBC Flagged by Analyzer 0 % (0-5); Platelet Count 221 K/mm3 (150-450); RBC Distribution Width CV 16.8 % (11.6-14.6); RBC Distribution Width SD 57.8 fl (35.1-43.9); Red Blood Count 2.90 M/mm3 (4.6-6.2); White Blood Count 6.2 K/mm3 (4.4-11.0)
[2025-03-20 16:57] LABS: Ferritin 16 ng/mL (37-417); Iron 16 ug/dL (65-175); Iron Binding Capacity,Total 380 ug/dL (250-450); Iron Binding Capacity,Unsat 364 ug/dL (228-428)
== END | disposition home or self-care (01) ==
LOC: LAB 15:52
PROVIDERS: PCP Family Medicine; Referring Provider Student in an Organized Health Care Education/Training Program; Visit Provider Student in an Organized Health Care Education/Training Program
DX: K92.1 Melena (principal)
CPT/HCPCS: 36415; 82728; 83540; 83550; 85025

== ENCOUNTER → 2025-05-13 | Outpatient (CLI) | payer MEDICARE, SELFPAY ==
[2025-03-06 12:13] VITALS: BMI 20.2
[2025-05-13 14:57] LABS: PSA,Total- Diagnostic 0.12 ng/mL (0.00-4.00)
== END | disposition home or self-care (01) ==
LOC: LAB 13:21
PROVIDERS: PCP Family Medicine; Referring Provider Urology; Visit Provider Urology
DX: C61 Malignant neoplasm of prostate (principal)
CPT/HCPCS: 36415; 84153

== ENCOUNTER 2025-06-24 11:57 | Day surgery (SDC) | payer MEDICARE, SELFPAY ==
[2025-03-06 12:13] VITALS: BMI 20.2
--- NOTE | 2025-06-23 13:35 | PAT.ANESEVAL ---
Pre-Assessment Diagnosis/Proposed Procedure Planned Operative Procedure(s): EGD Anesthesia History Anesthesia History - floor and wall applier liquid: Anesthesia History - floor and wall applier liquid Hx Hospitalization Yes: 02/2024-[facility] 06/23/25 11:35 Any Problems With Anesthesia [ No 08/25/22 17:29 2] Any Problems With Anesthesia [ No 08/25/22 17:21 1 (Initial Baseline)] Any Problems With Anesthesia Yes: Cannot have propofol, 06/23/25 11:35 HARD TIME WAKING Cholinesterase deficiency No 06/23/25 11:35 You/Your Family Experience No 06/23/25 11:35 fever (hyperthermia) with Relationship Recent Exposure to Contagious No 03/06/25 12:13 Disease Does patient have nerve No 06/23/25 11:35 stimulator Patient instructed to have device shut off --Does patient have Pacemaker or ICD? When Was Last Pacemaker Check QUESTION #4 FULL TEXT: You/Your Family Experience fever (hyperthermia) with Anesthesia Last Oral Intake Last Oral intake: Last Oral Intake NPO since Meds taken in AM with sips of water? Meds patient instructed to take am of surgery PONV PONV - floor and wall applier liquid: PONV - floor and wall applier liquid Female No 06/23/25 11:35 HX of Motion Sickness No 06/23/25 11:35 HX of N/V After Surgery No 06/23/25 11:35 Non-Smoker Yes 06/23/25 11:35 Duration of Surgery greater No 06/23/25 11:35 than 60 minutes Number of Risk Factors 1 06/23/25 11:35 PONV Score Low Risk 06/23/25 11:35 Height & Weight Height & Weight: Anesthesia: Height & Weight Height 5 ft 4 in 03/06/25 12:13 Respiratory Assessment Respiratory Assessment - floor and wall applier liquid: Respiratory Tract Infection Hx - floor and wall applier liquid Hx Respiratory Tract Infection No 06/23/25 11:35 STOP Sleep Apnea STOP Sleep Apnea - floor and wall applier liquid: STOP Sleep Apnea - floor and wall applier liquid Hx Hypertension No 06/23/25 11:35 Hx Sleep Apnea No 06/23/25 11:35 CPAP BIPAP Do you snore loudly (louder No 06/23/25 11:35 than talking or can be heard Do you often feel tired/ No 06/23/25 11:35 fatigued/ sleepy during daytime? Has anyone observed you stop No 06/23/25 11:35 breathing during sleep? STOP Results Negative 06/23/25 11:35 QUESTION #5 FULL TEXT : Do you snore loudly (louder than talking or can be heard through closed doors)? 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 Specify any problems Hx of Preganancy in last 3 N/A 06/23/25 11:35 Months Nurse Filling Out Transfusion VCHRISTIN 06/23/25 11:35 & Questions: Date: 06/23/25 06/23/25 11:35 Time: 11:38 06/23/25 11:35 Patient unable to answer at this time (ie. confused, unrespo /Reproduction History /Reproductive History - floor and wall applier liquid: /Reproductive Hx- floor and wall applier liquid Hx Now No 06/23/25 11:35 Gestational Age (in weeks): EDC: Hx Hx Para Hx Section SAB No 06/23/25 11:35 PFSH Medical History (Updated 06/23/25 @ 11:34 by Eboni Flores) Wears partial dentures Wears glasses Cancer History of steroid therapy Arthritis Anemia Injury of back History of GI bleed Gastric reflux Smoker On home oxygen therapy Emphysema, unspecified Shortness of breath on exertion History of pain when walking Blood in stool Frequent ventricular premature beats PAC (premature atrial contraction) History of COPD Pneumothorax Asthma exacerbation in COPD Prostate CA COPD (chronic obstructive pulmonary disease) Glaucoma High cholesterol Home Medications ?Medication ?Instructions ?Recorded ?Last Taken ?Type artificial tears(hypromellose) 0.3 1 drp EACH EYE BID DRY EYE 08/25/22 03/02/25 History % eye drops aspirin 81 mg tablet,delayed 81 mg PO DAILY HEART HEALTH 12/29/22 07/02/25 History release lovastatin 40 mg tablet 40 mg PO DAILY CHOLESTEROL 08/25/22 03/02/25 History timolol maleate 0.5 % eye drops 1 drp EACH EYE BID GLAUCOMA 08/25/22 03/04/25 History albuterol sulfate 90 mcg/actuation 2 puff inhalation Q6H PRN Dyspnea 12/13/22 01/05/24 History aerosol inhaler docusate sodium 100 mg capsule 100 mg PO QHS stool softner 12/13/22 03/02/25 History (Colace) fluticasone fur. 200 mcg-umeclid 1 inh inhalation 2130 breathing 12/13/22 03/02/25 History 62.5 mcg-vilant 25 mcg inhalat.powder (Trelegy Ellipta) fluticasone propionate 50 1 spray intranasal DAILY PRN nasal 12/13/22 01/05/24 History mcg/actuation nasal congestion spray,suspension guaifenesin 600 mg tablet, 600 mg PO BID cough 12/13/22 03/02/25 History extended release 12 hr (Mucinex) acetaminophen 500 mg tablet 500 - 1,000 mg PO Q6H PRN pain 10/14/24 Unknown History loratadine 10 mg tablet (Allergy 10 mg PO DAILY allergies 10/14/24 03/02/25 History Relief (loratadine)) vitamins A,C,C-kqcr-llwgfm 2,148 2 tab PO BID vitamin 10/14/24 03/02/25 History mcg-113 mg-45 mg-17.4 mg tablet (Eye Multivitamin) pantoprazole 40 mg tablet,delayed 40 mg PO BID #60 tabs 03/05/25 Unknown Rx release ascorbic acid (vitamin C) 500 mg 500 mg PO DAILY 06/23/25 Unknown History tablet (C-500) ferrous sulfate 325 mg (65 mg 325 mg PO DAILY 06/23/25 Unknown History iron) tablet Allergy/AdvReac Type Severity Reaction Status Date / Time No Known Allergies Allergy Verified 06/23/25 11:11 Family History Other COPD (chronic obstructive pulmonary disease) Heart disease Hypertension Family History no significant family his Surgical History (Updated 06/23/25 @ 11:34 by Eboni Flores) History of cystoscopy History of esophagogastroduodenoscopy (EGD) H/O radical prostatectomy Social History household members: family Smoking Status: Former smoker alcohol intake: former Audit: Pertinent Findings Pertinent Findings EKG Perinent findings: October 16, 2024. Normal sinus rhythm. Compared to EKG of October 14, PVC's and PSVC's are no longer present. Recommendation Anesthesia Recommendation Anesthesia recommendation: OPTIMIZED for anesthesia
[2025-06-24] VITALS (8 sets, daily range): BP systolic 111–150; BP diastolic 84–93; PULSE 91–97; RESP 16–18; TEMP 36.1–36.6; O2SAT 94–98; BMI 21.5
[2025-06-24] MEDS: Lactated Ringers 1,000 ML 15 ML IV (12:37)
--- NOTE | 2025-06-24 12:44 | PRE.ANES_ITS ---
ASA Classification* ASA Classification ASA Classification: 2 Assessment & Plan Anesthesia* Anesthesia Assessment Anesthesia Assessment: Discussed sedation and/or anesthesia options, risks, benefits, and alternatives with patient/parents/legal guardian/POA. Questions invited. The patient/parents/legal guardian/POA seems to understand and agrees to proceed with anesthesia plan. Reviewed the physical assessment, medical history, allergy history and patient home medications list prior to surgery/procedure/anesthetic and documented any changes. Performed airway and anesthesia risk assessments. Anesthesia Type Anesthesia Type: MAC History Source History Obtained from:: Patient, Chart and Significant Other (Spouse present in the room) Anesthesia Focused Assessment* Temperature: 97.4 F Pulse Rate: 91 Blood Pressure: 150/92 Respiratory Rate: 18 Pulse Ox: 94 Oxygen Delivery Method: Room Air Airway Assessment Mouth opens: >3 cm Mallampati Score: II Teeth Condition: Missing (Poor dentition. A lot of missing teeth. Only a few present in lower jaw and they are in poor condition.) Neck Range of motion (ROM): Limited ROM Labs Anesthesia Preop lab: CBC WBC, (4.4-11.0) 6.2 K/mm3 03/20/25, 15:54 RBC, (4.6-6.2) 2.90 M/mm3 L 03/20/25, 15:54 Hgb, (13.0-16.5) 8.3 g/dL L 03/20/25, 15:54 Hct, (40-54) 27.3 % L 03/20/25, 15:54 Plt Count, (150-450) 221 K/mm3 03/20/25, 15:54 CHEMISTRY Potassium, (3.3-5.1) 4.1 mmol/L 03/04/25, 06:18 Sodium, (133-145) 139 mmol/L 03/04/25, 06:18 Magnesium, (1.6-2.6) 2.1 mg/dL 10/16/24, 03:39 Phosphorus, (2.5-4.9) 2.7 mg/dL 10/16/24, 03:39 BUN, (4-19) 15 mg/dL 03/04/25, 06:18 Creatinine, (0.70-1.20) 0.73 mg/dL 03/04/25, 06:18 Glucose, (70-99) 87 mg/dL 03/04/25, 06:18 COAG PT, (11.7-14.9) 13.9 SECONDS 03/04/25, 03:43 Pre-Assessment Diagnosis/Proposed Procedure Planned Operative Procedure(s): EGD Anesthesia History Anesthesia History - community action worker: Anesthesia History - community action worker Hx Hospitalization Yes: 02/2024-[facility] 06/23/25 11:35 Any Problems With Anesthesia [ No 08/25/22 17:29 2] Any Problems With Anesthesia [ No 08/25/22 17:21 1 (Initial Baseline)] Any Problems With Anesthesia Yes: Cannot have propofol, 06/23/25 11:35 HARD TIME WAKING Cholinesterase deficiency No 06/23/25 11:35 You/Your Family Experience No 06/23/25 11:35 fever (hyperthermia) with Relationship Recent Exposure to Contagious No 06/24/25 12:29 Disease Does patient have nerve No 06/23/25 11:35 stimulator Patient instructed to have device shut off --Does patient have Pacemaker No 06/24/25 12:29 or ICD? When Was Last Pacemaker Check QUESTION #4 FULL TEXT: You/Your Family Experience fever (hyperthermia) with Anesthesia Last Oral Intake Last Oral intake: Last Oral Intake NPO since 19:00 06/24/25 12:29 Meds taken in AM with sips of No 06/24/25 12:29 water? Meds patient instructed to take am of surgery PONV PONV - community action worker: PONV - community action worker Female No 06/23/25 11:35 HX of Motion Sickness No 06/23/25 11:35 HX of N/V After Surgery No 06/23/25 11:35 Non-Smoker Yes 06/23/25 11:35 Duration of Surgery greater No 06/23/25 11:35 than 60 minutes Number of Risk Factors 1 06/23/25 11:35 PONV Score Low Risk 06/23/25 11:35 Height & Weight Height & Weight: Anesthesia: Height & Weight Height 5 ft 4 in 06/24/25 12:29 Weight: 57 kg 06/24/25 12:29 Body Mass Index (BMI) 21.5 06/24/25 12:29 Respiratory Assessment Respiratory Assessment - community action worker: Respiratory Tract Infection Hx - community action worker Hx Respiratory Tract Infection No 06/23/25 11:35 STOP Sleep Apnea STOP Sleep Apnea - community action worker: STOP Sleep Apnea - community action worker Hx Hypertension No 06/23/25 11:35 Hx Sleep Apnea No 06/23/25 11:35 CPAP BIPAP Do you snore loudly (louder No 06/23/25 11:35 than talking or can be heard Do you often feel tired/ No 06/23/25 11:35 fatigued/ sleepy during daytime? Has anyone observed you stop No 06/23/25 11:35 breathing during sleep? STOP Results Negative 06/23/25 11:35 QUESTION #5 FULL TEXT : Do you snore loudly (louder than talking or can be heard through closed doors)? Tobacco Use History Tobacco Use History - community action worker: Tobacco Use History - community action worker Tobacco Use Smoking Status Former smoker 06/23/25 11:35 Hx Tobacco Use Yes 06/23/25 11:35 Years Smoking Packs Smoked per Day Smoking Cessation Date was Yes - quit smoking within 15 06/23/25 11:35 within the last 15 years years Hx Smoking Cessation Date Hx Smoking Cessation Counseling Hematologic Medial History Hematologic Hx - community action worker: Hematologic Medical Hx - top collar maker Hx of Blood Transfusion Yes 06/23/25 11:35 Hx of Transfusion in last 3 No 06/23/25 11:35 Months Date of Last Transfusion (if within last 3 months) Ever experience any problems No 06/23/25 11:35 with transfusion(s)? Specify any problems Hx of Preganancy in last 3 N/A 06/23/25 11:35 Months Nurse Filling Out Transfusion VCHRISTIN 06/23/25 11:35 & Questions: Date: 06/23/25 06/23/25 11:35 Time: 11:38 06/23/25 11:35 Patient unable to answer at this time (ie. confused, unrespo /Reproduction History /Reproductive History - community action worker: /Reproductive Hx- community action worker Hx Now No 06/23/25 11:35 Gestational Age (in weeks): EDC: Hx Hx Para Hx Section SAB No 06/23/25 11:35 Active Medications Active Medications: Current Medications Generic Name Dose Route Start Last Admin Trade Name Freq PRN Reason Stop Dose Admin Lactated Ringer's 1,000 mls @ 15 mls/hr 06/24/25 12:15 06/24/25 12:37 IV 15 mls/hr .Q48H NASRA Administration PFSH Medical History Wears partial dentures Wears glasses Cancer History of steroid therapy Arthritis Anemia Injury of back History of GI bleed Gastric reflux Smoker On home oxygen therapy Emphysema, unspecified Shortness of breath on exertion History of pain when walking Blood in stool Frequent ventricular premature beats PAC (premature atrial contraction) History of COPD Pneumothorax Asthma exacerbation in COPD Prostate CA COPD (chronic obstructive pulmonary disease) Glaucoma High cholesterol Home Medications ?Medication ?Instructions ?Recorded ?Last Taken ?Type artificial tears(hypromellose) 0.3 1 drp EACH EYE BID DRY EYE 08/25/22 03/02/25 History % eye drops aspirin 81 mg tablet,delayed 81 mg PO DAILY HEART HEAL TH 08/25/22 06/23/25 History release lovastatin 40 mg tablet 40 mg PO DAILY CHOLESTEROL 1 03/02/25 History timolol maleate 0.5 % eye drops 1 drp EACH EYE BID GLA UCOMA 08/25/22 03/04/25 History albuterol sulfate 90 mcg/actuation 2 puff inhalation Q 6H PRN Dyspnea 12/13/22 01/05/24 History aerosol inhaler docusate sodium 100 mg capsule 100 mg PO QHS stool sof tner 12/13/22 03/02/25 History (Colace) fluticasone fur. 200 mcg-umeclid 1 inh inhalation 2130 breathing 12/13/22 03/02/25 History 62.5 mcg-vilant 25 mcg inhalat.powder (Trelegy Ellipta) fluticasone propionate 50 1 spray intranasal DAILY PRN nasal 12/13/22 01/05/24 History mcg/actuation nasal congestion spray,suspension guaifenesin 600 mg tablet, 600 mg PO BID cough 3 03/02/25 History extended release 12 hr (Mucinex) acetaminophen 500 mg tablet 500 - 1,000 mg PO Q6H PRN pain 10/14/24 Unknown History loratadine 10 mg tablet (Allergy 10 mg PO DAILY allerg ies 10/14/24 03/02/25 History Relief (loratadine)) vitamins A,C,T-euta-epwvzr 2,148 2 tab PO BID vitamin 10/14/24 03/02/25 History mcg-113 mg-45 mg-17.4 mg tablet (Eye Multivitamin) pantoprazole 40 mg tablet,delayed 40 mg PO BID #60 tab s 03/05/25 Unknown Rx release ascorbic acid (vitamin C) 500 mg 500 mg PO DAILY 06/23 Unknown History tablet (C-500) ferrous sulfate 325 mg (65 mg 325 mg PO DAILY 06/23/25 Unknown History iron) tablet Allergy/AdvReac Type Severity Reaction Status Date / Time No Known Allergies Allergy Verified 06/24/25 12:27 Family History Other COPD (chronic obstructive pulmonary disease) Heart disease Hypertension Surgical History History of cystoscopy History of esophagogastroduodenoscopy (EGD) H/O radical prostatectomy Social History household members: family Smoking Status: Former smoker alcohol intake: former Review of Systems (Anesthesia) ROS Narrative System reviewed and no additional complaints, except as documented.
--- NOTE | 2025-06-24 13:00 | EGD_PTH ---
PATIENT: JUSTIN HULL LOC: EN U#:[id number] AGE/SX: 79/M ROOM: RE06/24/[address]: Dr. Jay Palacios DO : 1945 BED: DIS: 06/24/2025 SPEC #: [id number] RECD: 06/24/25 14:28 STATUS: CARMEN REQ #: [id number] TIMMY: 06/24/25 13:[address]: Jay Palacios DEPT: SURGICAL PATHOLOGY RECD BY: Jd Zuñiga ENTERED: 06/24/25 15:16 SP TYPE: EGD BIOPSY ZEFERINO DR: Dr. Rosendo Lopez MD Tissues: A - Esophagus, NOS B - Gastric mucous membrane Procedures: Immunohistochemical Stains Special Stain Group I Surgery Specimen Level IV GMS Stain (control) HEADER OPERATION: EGD, biopsy PRE-OP DIAGNOSIS: Blood in stool, GI bleed TISSUE SUBMITTED: A- Distal esophagus biopsy, B- Gastric body biopsy MICROSCOPIC DIAGNOSIS A. Distal esophagus, biopsy: - Squamous mucosa with reactive changes and focal acute inflammation. - Negative for increased eosinophils. 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 B. Gastric body, biopsy: - Oxyntic mucosa with active chronic inflammation and focal erosion. - IHC negative for H. pylori organisms. MICROSCOPIC DESCRIPTION Slides are reviewed. All matched controls reacted appropriately. These tests were developed and their performance characteristics determined by [facility]. They may not have been cleared or approved by the U.S. Food and Drug Administration. The FDA has determined that such clearance or approval is not necessary. The above immunohistochemical markers and/or special?stains have been reviewed by the Pathologist. GROSS DESCRIPTION A. Received in fixative is one container labeled with the patient's name and designated Distal esophagus biopsy. The specimen consists of two irregular fragments of mccallum tissue, each measuring 0.5 cm. The specimen is totally submitted in one cassette. B. Received in fixative is one container labeled with the patient's name and designated Gastric body biopsy. The specimen consists of two irregular fragments of mccallum tissue, each measuring 0.6 cm. The specimen is totally submitted in one cassette. [place] 06/24/2025 CPT:85856v0 ,[id number]
--- NOTE | 2025-06-24 13:04 | PCM.HP.STD ---
HPI - General General Date of Admission: 06/24/25 Date of Service: 06/24/25 Chief Complaint: Anemia HPI Narrative Chief Complaint: GI bleed Details: DIMITRI HULL, is a 79 M who presents to the office today for hospital f/u. PMHx of COPD, prostate cancer [facility] ED 03.03.25 for evaluation of GI bleed. Bloody bm x3 days. Hgb 7. Rectal exam with black stool. Admitted for EGD EGD - LA Grade C erosive esophagitis with bleeding. Treated with a heater probe. - Moderate Schatzki ring. - Z-line irregular, 39 cm from the incisors. Biopsied. - Bile gastritis. Biopsied. - No gross lesions in the entire examined duodenum. OV 03.21.25 Pt doing well since being in the hospital. He has had no further GI bleeding. He had a f/u with his PCP today and fecal occult stool test was negative. He is trying to eat more but has no appetite. He will have at least one boost shake per day. His PCP prescribed him a Cologuard test vs having a colonoscopy. [facility] Medical History Wears partial dentures Wears glasses Cancer History of steroid therapy Arthritis Anemia Injury of back History of GI bleed Gastric reflux Smoker On home oxygen therapy Emphysema, unspecified Shortness of breath on exertion History of pain when walking Blood in stool Frequent ventricular premature beats PAC (premature atrial contraction) History of COPD Pneumothorax Asthma exacerbation in COPD Prostate CA COPD (chronic obstructive pulmonary disease) Glaucoma High cholesterol Home Medications ?Medication ?Instructions ?Recorded ?Last Taken ?Type artificial tears(hypromellose) 0.3 1 drp EACH EYE BID DRY EYE 08/25/22 03/02/25 History % eye drops aspirin 81 mg tablet,delayed 81 mg PO DAILY HEART HEALTH 08/25/22 06/23/25 History release lovastatin 40 mg tablet 40 mg PO DAILY CHOLESTEROL 08/25/22 03/02/25 History timolol maleate 0.5 % eye drops 1 drp EACH EYE BID GLAUCOMA 08/25/22 03/04/25 History albuterol sulfate 90 mcg/actuation 2 puff inhalation Q6H PRN Dyspnea 12/13/22 01/05/24 History aerosol inhaler docusate sodium 100 mg capsule 100 mg PO QHS stool softner 12/13/22 03/02/25 History (Colace) fluticasone fur. 200 mcg-umeclid 1 inh inhalation 2130 breathing 12/13/22 03/02/25 History 62.5 mcg-vilant 25 mcg inhalat.powder (Trelegy Ellipta) fluticasone propionate 50 1 spray intranasal DAILY PRN nasal 12/13/22 01/05/24 History mcg/actuation nasal congestion spray,suspension guaifenesin 600 mg tablet, 600 mg PO BID cough 12/13/22 03/02/25 History extended release 12 hr (Mucinex) acetaminophen 500 mg tablet 500 - 1,000 mg PO Q6H PRN pain 10/14/24 Unknown History loratadine 10 mg tablet (Allergy 10 mg PO DAILY allergies 10/14/24 03/02/25 History Relief (loratadine)) vitamins A,C,R-quuu-adirfm 2,148 2 tab PO BID vitamin 10/14/24 03/02/25 History mcg-113 mg-45 mg-17.4 mg tablet (Eye Multivitamin) pantoprazole 40 mg tablet,delayed 40 mg PO BID #60 tabs 03/05/25 Unknown Rx release ascorbic acid (vitamin C) 500 mg 500 mg PO DAILY 06/23/25 Unknown History tablet (C-500) ferrous sulfate 325 mg (65 mg 325 mg PO DAILY 06/23/25 Unknown History iron) tablet Allergy/AdvReac Type Severity Reaction Status Date / Time No Known Allergies Allergy Verified 06/24/25 12:27 Family History Other COPD (chronic obstructive pulmonary disease) Heart disease Hypertension Surgical History History of cystoscopy History of esophagogastroduodenoscopy (EGD) H/O radical prostatectomy Social History household members: family Smoking Status: Former smoker alcohol intake: former ROS Constitutional Constitutional: Denies fatigue, fever(s), poor appetite, weight gain or weight loss Gastrointestinal Gastrointestinal: Denies belching, bloating, change in bowel habits, change in stool character, chewing difficulty, coffee ground emesis, constipation, cramping, diarrhea, dyspepsia, dysphagia, early satiety, excessive flatus, fecal incontinence, heartburn, hematemesis, hematochezia, hemorrhoids, loose stools, melena, nausea, odynophagia, rectal bleeding, tenesmus, vomiting or weight changes Vital Signs Vital Signs Vital Signs: 06/24/25 12:29 06/24/25 12:29 06/24/25 12:46 Temperature 97.4 F L 97.4 F L Temperature Source Temporal Pulse Rate 91 91 Respiratory Rate 18 18 Respiratory Pattern Normal Blood Pressure 150/92 H 150/92 H Blood Pressure Mean 111 Blood Pressure Source Monitor Blood Pressure Position Semi-Fowlers Blood Pressure Location Left Arm Pulse Ox 94 94 Oxygen Delivery Method Room Air Room Air Weight Weight: 125 lb 10.616 oz Body Mass Index (BMI) 21.5 Physical Exam Const alert, oriented x3, no apparent distress and healthy appearing General Appearance: cooperative GI normal to inspection, nondistended, normoactive bowel sounds, soft to palpation, non-tender and non-distended Percussion: normal to percussion Rectal Exam: deferred Assessment & Plan Assessment/Plan (1) GI bleed: PLAN: Assessment and Plan Assessment and Plan (1) Blood in stool: Status: Acute Plan: Dimitri is an 79 yo male pt here today for hospital f/u after having a GI bleed. He underwent EGD which showed LA grade C esophagitis with bleeding. He was started on pantoprazole 40 mg BID. He is feeling well today. He saw his PCP earlier who did blood work and stool test. Stool was negative for blood. Hgb was 8.8. He will have repeat CBC and iron studies drawn today. He was scheduled for repeat EGD in 3 months to ensure healing of his esophagitis. -CBC and iron studies -EGD in 3 months -Continue pantoprazole (2) GI bleed: Status: Acute Orders: Orders Iron Today K92.1 - Melena Iron+Iron Binding Capacity Today K92.1 - Melena Ferritin Today K92.1 - Melena CBC W/Diff, Automated Today K92.1 - Melena ]
--- NOTE | 2025-06-24 13:29 | PCM.POST.ANE ---
Anesthesia: Postop Eval I Current Vital Signs Temperature: 97 F Pulse Rate: 97 Blood Pressure: 137/93 Respiratory Rate: 16 Pulse Ox: 98 Oxygen Delivery Method: Room Air Assessment Airway patent: Yes Spontaneous unlabored respirations: Yes Mental status: Awake and Calm nausea: No Vomiting: No Anesthesia Complication: No Fluid Hydration Crystalloid volume administer (ml): 400 Total IV fluid infused: 400 Progress Note Anesthesia document: Postop Eval 1 completed: Yes
--- NOTE | 2025-06-24 13:35 | OP.EGD_ITS ---
Patient Name: Dimitri Painter Procedure Date: 06/24/2025 1:01 PM Date of : 1945 Age: 79 Procedure: Upper GI endoscopy Indications: Iron deficiency anemia Providers: Jay Palacios DO Medicines: Monitored Anesthesia Care Patient Profile: This is an 79 year old male. Patient has symptoms of chronic dyspepsia. Complications: No immediate complications. Procedure: Pre-Anesthesia Assessment: - Prior to the procedure, a History and Physical was performed, and patient medications and allergies were reviewed. The patient is competent. The risks and benefits of the procedure and the sedation options and risks were discussed with the patient. All questions were answered and informed consent was obtained. Patient identification and proposed procedure were verified by the physician in the pre-procedure area. Mental Status Examination: alert and oriented. Airway Examination: normal oropharyngeal airway and neck mobility. Respiratory Examination: clear to auscultation. CV Examination: normal. Prophylactic Antibiotics: The patient does not require prophylactic antibiotics. Prior Anticoagulants: The patient has taken no anticoagulant or antiplatelet agents except for NSAID medication. ASA Grade Assessment: II - A patient with mild systemic disease. After reviewing the risks and benefits, the patient was deemed in satisfactory condition to undergo the procedure. The anesthesia plan was to use monitored anesthesia care (MAC). Immediately prior to administration of medications, the patient was re-assessed for adequacy to receive sedatives. The heart rate, respiratory rate, oxygen saturations, blood pressure, adequacy of pulmonary ventilation, and response to care were monitored throughout the procedure. The physical status of the patient was re-assessed after the procedure. After obtaining informed consent, the endoscope was passed under direct vision. Throughout the procedure, the patient's blood pressure, pulse, and oxygen saturations were monitored continuously. The Endoscope was introduced through the mouth, and advanced to the third part of the duodenum. Small bowel enteroscopy was deemed necessary. The upper GI endoscopy was accomplished with ease. Scope In: 1:17:52 PM Scope Out: 1:22:33 PM Total Procedure Duration Time 0 hours 4 minutes 41 seconds Findings: No gross lesions were noted in the entire esophagus. Diffuse severe inflammation characterized by erythema, friability and granularity was found in the entire examined stomach. Biopsies were taken with a cold forceps for histology. Biopsies were taken with a cold forceps for Helicobacter pylori testing. Verification of patient identification for the specimen was done. The exam of the duodenum was otherwise normal. Impression: - No gross lesions in the entire esophagus. - Chronic gastritis. Biopsied. Recommendation: - Await pathology results. - Continue present medications. Procedure Code(s): --- Professional --- 47203, Small intestinal endoscopy, enteroscopy beyond second portion of duodenum, not including ileum; with biopsy, single or multiple CPT copyright 2021 [employer]. All rights reserved. The codes documented in this report are preliminary and upon research geologist review may be revised to meet current compliance requirements. Jay Palacios DO 06/24/2025 1:34:30 PM This report has been signed electronically. Number of Addenda: 0 Note Initiated On: 06/24/2025 1:01 PM
--- NOTE | 2025-06-24 13:35 | OP.PROVAT_ITS ---
06/24/2025 Rosendo Lopez [address] [place] [address] Re : Upper GI endoscopy procedure for Dimitri Painter Dear Dr. Lopez This procedure was performed on Tuesday, June 24, 2025. My impressions and recommendations are as follows: Impressions : - No gross lesions in the entire esophagus. - Chronic gastritis. Biopsied. Recommendations : - Await pathology results. - Continue present medications. My findings are described in the full procedure note, which is enclosed. If I can be of further assistance, please feel free to contact me at . Sincerely, Jay Palacios, 06/24/2025 1:34:30 PM This report has been signed electronically.
--- NOTE | 2025-06-24 14:55 | POSTOPAN2_ITS ---
Anesthesia Postop Eval I Sum Postop Eval Completion status Anesthesia document: Postop Eval 1 completed: Yes Anesthesia Postop Eval I Summary Anesthesia Postop Eval I Summary: Anesthesia Postop Eval I: Assessment Summary Airway patent Yes 06/24/25 13:29 SR. [email or web address] Spontaneous unlabored Yes 06/24/25 13:29 SR. [email or web address] respirations Mental status Awake,Calm 06/24/25 13:29 SR. [email or web address] nausea No 06/24/25 13:29 SR. [email or web address] Vomiting No 06/24/25 13:29 SR. [email or web address] Anesthesia Postop Eval I: Fluid Summary Crystalloid volume administer 400 06/24/25 13:29 SR. [email or web address] (ml) Colloids volume administered ( ml) Blood Product volume administered (ml) Total IV fluid infused 400 06/24/25 13:29 SR. [email or web address] Anesthesia Postop Eval I: Summary Notes Anesthesia Complication No 06/24/25 13:29 SR. [email or web address] Anesthesia Complication Comment: Post-operative progress note Anesthesia: Postop Eval II Evaluation Mental status: Awake and Calm Pain Level: 1 nausea: No Vomiting: No Complications Anesthesia Complication: No
--- NOTE | 2025-06-24 14:55 | PCM.POSTANE2 ---
Anesthesia Postop Eval I Sum Postop Eval Completion status Anesthesia document: Postop Eval 1 completed: Yes Anesthesia Postop Eval I Summary Anesthesia Postop Eval I Summary: Anesthesia Postop Eval I: Assessment Summary Airway patent Yes 06/24/25 13:29 REGIONAL SAFETY [email or web address] Spontaneous unlabored Yes 06/24/25 13:29 REGIONAL SAFETY MANAGER.[email or web address] respirations Mental status Awake,Calm 06/24/25 13:29 REGIONAL SAFETY [email or web address] nausea No 06/24/25 13:29 REGIONAL SAFETY MANAGER.GDOTT Vomiting No 06/24/25 13:29 REGIONAL SAFETY MANAGER.GDOTT Anesthesia Postop Eval I: Fluid Summary Crystalloid volume administer 400 06/24/25 13:29 REGIONAL SAFETY MANAGER.GDOTT (ml) Colloids volume administered ( ml) Blood Product volume administered (ml) Total IV fluid infused 400 06/24/25 13:29 REGIONAL SAFETY MANAGER.GDOTT Anesthesia Postop Eval I: Summary Notes Anesthesia Complication No 06/24/25 13:29 REGIONAL SAFETY MANAGER.GDOTT Anesthesia Complication Comment: Post-operative progress note Anesthesia: Postop Eval II Evaluation Mental status: Awake and Calm Pain Level: 1 nausea: No Vomiting: No Complications Anesthesia Complication: No
== END 2025-06-24 14:19 | disposition home or self-care (01) ==
LOC: EN 11:59 → AC 12:00
PROVIDERS: PCP Family Medicine; Referring Provider Family Medicine; Visit Provider Internal Medicine Gastroenterology
PROC: 0DJ08ZZ Inspection of Upper Intestinal Tract, Via Natural or Artificial Opening Endoscopic (ICD-10-PCS; CPT 43235; principal; 2025-06-24 12:55)
DX: K29.50 Unspecified chronic gastritis without bleeding (principal); J44.9 Chronic obstructive pulmonary disease, unspecified; D50.9 Iron deficiency anemia, unspecified; Z79.51 Long term (current) use of inhaled steroids; E78.00 Pure hypercholesterolemia, unspecified; Z87.891 Personal history of nicotine dependence; K92.1 Melena; Z85.46 Personal history of malignant neoplasm of prostate; Z99.81 Dependence on supplemental oxygen; Z79.899 Other long term (current) drug therapy; Z90.79 Acquired absence of other genital organ(s); K20.90 Esophagitis, unspecified without bleeding; B37.9 Candidiasis, unspecified; K31.89 Other diseases of stomach and duodenum
CPT/HCPCS: 44361; 88305; 88312; 88342; J2405